=== PATIENT | female | born 1960 | race Caucasian/White ===

== ENCOUNTER 2019-12-17 10:01 | Inpatient (IN) | payer BC, MEDICARE ==
[~2019-12-17] VITALS: Ht 165.1 cm; Wt 60.5 kg
--- NOTE | 2019-12-17 10:05 | NUR ---
ED Nurse Note:pt. nit in the room
--- NOTE | 2019-12-17 10:08 | Emergency Room Report ---
History of Present Illness General Chief Complaint: To Be Triaged Source: Patient Present Illness HPI Patient is a 59-year-old female with past medical history of ulcerative colitis now in remission status post ileocecal J-pouch placed by Dr Mix at [facility]. Patient was sent by Dr. Hartley who his her current surgeon. The patient's symptoms were gradual onset, severity was moderate, duration since several days. Quality: Aching States that the stool coming out of the ileocecal bag varies. Sometimes hard, sometimes soft, unsure of whether there is any blood in it Past medical history: Ulcerative colitis Past surgical history: Ileocecal J-pouch Smoking: Denies Alcohol use: Denies Drug use: Denies Review of systems: CONST: No fevers or chills, No night sweats PULMONARY: No productive cough, No shortness of breath CARDIAC: No chest pain, No palpitations GI: No vomiting, No diarrhea , No melena_or_BRBPR : No dysuria, No hematuria, No discharge NEURO: No new_focal_weakness_or_numbness, No confusion, No vision changes 14 point Review of Systems is otherwise negative except per HPI Physical Exam: GENERAL: Awake_alert_ nontoxic, no acute distress Spo2 100% on RA -normal EYES: Extraocular muscles are intact. Conjunctivae clear. Lids without swelling ENT: External nose and ear normal_in_appearance. Oropharynx clear. Head_ atraumatic, Moist_oral_mucosa NECK: No JVD. No meningismus. No thyromegaly. Supple. Trachea midline RESP: Normal respiratory effort. Symmetric rise. No stridor. Clear_to_ auscultation_No_rales_No_wheezes CARDIAC: Regular rate and regular rhytm. No_significant pedal edema. ABDOMEN: Soft. Nondistended. Nontender_No_rebound_or_guarding. Ileocecal J-pouch in the right lower quadrant of the abdomen. No CVA tenderness palpation. No surrounding erythema or drainage. Minimal drainage from bag. MSK: Normal muscle tone, without rigidity. Left lower extremity swelling SKIN: Warm and dry. No visible cyanosis or pallor NEUROLOGIC: Alert, oriented x3. Motor_and_sensation_grossly_intact. No truncal ataxia. Gait_normal Psych: Normal mood and affect, normal judgment and insight - COORDINATION OF CARE Case was discussed with: Patient , Patient's Physician Any labs and imaging that were ordered were interpreted as part of the medical decision making: Medical Decision Making/Plan: Differential diagnosis includes cholecystitis, choledocholithiasis, hepatitis, small bowel obstruction, volvulus, AAA, pancreatitis, atypical appendicitis, gastroparesis, gastritis, peptic ulcer disease, among others. Patient is well appearing with stable vital signs. Abdominal exam is non peritoneal with no guarding or rebound. She has a right lower quadrant colostomy bag at the ileocecal junction. No rebound or guarding. She was sent here by Dr. Mckeon her surgeon due to failed ileocecal J-pouch. He will Revise while she is admitted as an inpatient. Labs show mild anemia, otherwise no leukocytosis or metabolic abnormalities. COVID swab is negative. Doubt ulcerative colitis flare EKG shows normal sinus rhythm The patient denies any bloody stool and has no pain out of proportion to exam, and no significant risk factors for mesenteric ischemia such as atrial fibrillation or severe PAD/PVD (peripheral arterial / vascular disease), thus definitive workup to rule out mesenteric ischemia was not pursued. Patient is afebrile, without any significant tenderness in the RUQ, and a negative [place] sign. The patients presentation does not appear to be consistent with acute cholecystitis and thus definitive imaging to rule it out was not pursued. The patient has no significant risk factors for AAA (abdominal aortic aneurysm) such as age over 50 with history of hypertension, connective tissue disorder, or 1st degree relative with AAA. the patient has normal dorsalis pedis pulses, no radiation of pain to the back, and no pulsatile mass felt on exam. The patients profile was overall low risk for AAA and definitive workup was not pursued. The patients symptoms are not consistent with ACS (acute coronary syndrome), symptoms are not exertional, EKG without obvious ischemic change. Duplex ultrasound is pending at the time of admission. I spoke with Dr. Mckeon, and reviewed the patients presentation, workup, results, and treatment. They will admit the patient for further care and evaluation, and assume care of the patient at this time. Allergies: Coded Allergies: AMPICILLIN (Verified Allergy, Unknown, 12/17/19) TETRACYCLINE (Verified Allergy, Unknown, 12/17/19) Physical Exam Sp02 EP Interpretation: reviewed, normal Medical Decision Making Diagnostic Impression: Primary Impression: Abdominal pain Additional Impressions: Ulcerative colitis Leg edema, left Colostomy and enterostomy complications EKG Diagnostic Results KATIE Silva 12-lead EKG (interpreted by ) Time: 1035 Indication: Rhythm analysis Tracing visualized and Interpreted by . Rhythm: Normal sinus rhythm Rate: 91 bpm QTc: 432 Morphology: No_significant_ST_elevations_or_depressions, No STEMI Impression: Normal_sinus_rhythm_without_significant_abnormality Chest X-Ray Diagnostic Results Chest X-Ray Diagnostic Results : KATIE Silva Chest X-Ray: Views: 1 view(s) Indication: Surgical screening Findings: Normal heart size. Mediastinum normal. No infiltrate. Impression: No acute disease The X-ray(s) were independently viewed and interpreted contemporaneously Electronically signed by Christina nayak DO Disposition: ADMITTED INPATIENT Admit Decision Time: 11:14 Condition: Stable Christina Queen D.O. Dec 17, 2019 10:08
[2019-12-17] MEDS ORDERED: Heparin1,000 units/500ml Premix(Conc:2 units/ml) IV ONE (10:45)
[2019-12-17] MEDS ORDERED: Lidocaine 1% Plain 30 ml INJ ONE (10:45)
[2019-12-17] MEDS ORDERED: SODIUM CHLORIDE1 GM PO (10:50)
[2019-12-17] MEDS ORDERED: POTASSIUM CHLO10 ME2 PO (10:50)
[2019-12-17] MEDS ORDERED: PREVACID15 MG ORAL (10:50)
[2019-12-17] MEDS ORDERED: SEROQUEL200 MG ORAL (10:50)
[2019-12-17] MEDS ORDERED: PRAMIPEXOLE DI0.5 MG ORAL (10:50)
--- NOTE | 2019-12-17 11:04 | NUR ---
Initial ED Nurse note: Pt presents to ER for "removal of J pouch." Patient ambulating using walker and steady gait noted. Patient is awake, aler, oriented x 4. Regular, unlabored breathing noted. Patient jpouch for 30 yrs due to ulcerative colitis. Patient denies any N/V or D. Denies any fever or chills. Patient tolerating oral intake without any problem. Patient has swelling on the LLE. Patient reported she has DVT on LLE x [address] Mckeon aware of it, not on any anticoagulants at this time. Patient no c/o pain, laying comfortable in bed. Placed patient on cap sizer. Bed in lowest position. Awaiting for Covid test result.
[2019-12-17 11:05] VITALS: BP 127/94
[2019-12-17 11:15] LABS: BASOPHILS % (AUTO) 2.6 % (0.0-2.0); EOSINOPHILS % (AUTO) 2.1 % (0.0-3.0); HEMATOCRIT 33.5 % (37.0-47.0); HEMOGLOBIN 11.1 G/DL (12.0-16.0); LYMPHOCYTES % (AUTO) 24.5 % (20.0-45.0); MEAN CORPUSCULAR VOLUME 96 FL (80-99); MONOCYTES % (AUTO) 11.7 % (1.0-10.0); NEUTROPHILS % (AUTO) 59.2 % (45.0-75.0); PLATELET COUNT 386 K/UL (150-450); RED BLOOD COUNT 3.49 M/UL (4.20-5.40); WHITE BLOOD COUNT 6.6 K/UL (4.8-10.8)
[2019-12-17 11:25] LABS: ANION GAP 15 mmol/L (5-15); BLOOD UREA NITROGEN 11 mg/dL (7-18); CARBON DIOXIDE 21 MMOL/L (21-32); CHLORIDE 100 MMOL/L (98-107); CREATININE 1.1 MG/DL (0.55-1.30); SODIUM 136 MMOL/L (136-145)
--- NOTE | 2019-12-17 11:29 | NUR ---
ED Nurse Note: Second set of blood cultures sent to lab.
[2019-12-17 11:39] LABS: ALANINE AMINOTRANSFERASE 22 U/L (12-78); ALBUMIN 3.4 G/DL (3.4-5.0); ALBUMIN/GLOBULIN RATIO 0.7 (1.0-2.7); ALKALINE PHOSPHATASE 149 U/L (46-116); ASPARTATE AMINO TRANSFERASE 27 U/L (15-37); BILIRUBIN,TOTAL 0.3 MG/DL (0.2-1.0); CKMB 6.4 NG/ML (0.0-3.6)
--- NOTE | 2019-12-17 11:53 | NUR ---
ED Nurse Note: Report given to Susanna KAYE of Med Surg unit.
[2019-12-17] MEDS ORDERED: Heparin1,000 units/500ml Premix(Conc:2 units/ml) IV PRN (12:15)
[2019-12-17] MEDS ORDERED: Lidocaine 1% Plain 30 ml INJ PRN (12:15)
--- NOTE | 2019-12-17 12:52 | NUR ---
NURSE NOTES: Patient received from ER, via gurney on RA, in stable condition. Right lower abdomen, colostomy noted, appliance in place, secure, no leakage noted, dark green liquid output noted in bag. Patient denies pain, NV, SOB. Oriented patient to room and medical equipment/call light. Belongings reviewed (all belongings/walker with seat) remain at bedside with patient, signed. Admission orders/NPO status, reviewed with patient, verbalized understanding. Call light in reach, bed in lowest position, will continue to monitor.
--- NOTE | 2019-12-17 12:59 | NUR ---
ED Nurse Note: TRANSFER TO FLOOR: Patient transferred to as ordered. Patient sent with belongings. Patient remained awake, alert,oriented x 4. Regular, unlabored breathing noted. Reports no pain at this time.
[2019-12-17 13:00] VITALS: BP 148/85
--- NOTE | 2019-12-17 14:11 | NUR ---
NURSE NOTES: Patient sent down to radiology for PICC placement, via bed on RA, in stable condition. Consent signed, patient verbalized understanding. Returned at 1411 via bed, KELLEE double lumen PICC, scant amount of blood noted in dressing, intact. Will continue to monitor.
--- NOTE | 2019-12-17 14:13 | NUR ---
RADIOLOGY NOTE: LEFT UPPER PICC PLACED.
[2019-12-17] MEDS ORDERED: HydrOXYzine 50mg tab ORAL PRN (14:45)
[2019-12-17] MEDS ORDERED: Omnipaque-300 100ml vial INJ PRN (14:53)
[2019-12-17] MEDS ORDERED: LORazepam 1mg tab ORAL PRN (15:00)
--- NOTE | 2019-12-17 15:05 | General Progress Note ---
Progress Note Progress Note H&P dictated. 59yo female with history of Ulcerative Colitis, total colectomy with ileoanal J pouch that failed and Narcisa ileostomy created but J pouch left in place - now with increasing abdominal pain, bleeding from J pouch, anal discharge. She has also undergone mesh repair of incarcerated parastomal hernia in 2018. she also c/o left lower leg swelling for several weeks and severe pruritus with rashes etiology unknown despite medical and dermatology evaluations Abdomen soft, non-distended, long midline scar very wide in epigastric portion, ileostomy upper RLQ, no evidence of hernia. Perianal skin is normal with small stenotic anal orifice Left lower leg is swollen with mild erythema and some pain from below knee to toes. Week DP pulse bilat Duplex scan no DVT WBC 6600 Hgb 11.1 BUN 11 Cr 1.1 Alk phos 149 Albumin 3.4 Takes sodium and potassium daily - was hospitalized for 3 months last year for severe hyponatremia Imp: Failed ileoanal J pouch with abdominal pain and J pouch bleeding Stable Narcisa ileostomy Plan; STAT PICC line for venous access and start IV hydration - maintain NPO except po meds In AM CT scan abd + pelvis with po and IV contrast F/U left lower leg re antibiotics for possible cellulitis Prepare for surgery 12/18 laparotomy with resection ileoanal J pouch - she hopes to avoid the perineal proctectomy portion, and wants to maintain her current conventional ileostomy. f/u labs in AM with IV hydration Atarax prn pruritus; Ativan prn restless leg syndrome (Mirapex not effective) Gio Mckeon MD Dec 17, 2019 15:05
[2019-12-17 16:00] VITALS: BP 146/84
--- NOTE | 2019-12-17 16:01 | Pre-Procedure Note/Attestation ---
Pre-Procedure Note/Attestation Complete Prior to Procedure Planned Procedure: not applicable Procedure Narrative: PICC Indications for Procedure Pre-Operative Diagnosis: needs manager long term care IV access Attestation I attest that I discussed the nature of the procedure; its benefits; risks and complications; and alternatives (and the risks and benefits of such alternatives ), prior to the procedure, with the patient (or the patient's legal claim service representative). I attest that, if there was a reasonable possibility of needing a blood transfusion, the patient (or the patient's legal claim service representative) was given the [facility] standardized written summary, pursuant to the Jossue Hoda Blood Safety Act ([place] Health and Safety Code # 1645, as amended). I attest that I re-evaluated the patient just prior to the surgery and that there has been no change in the patient's H&P, except as documented below: Jesus Franks MD Dec 17, 2019 16:01
--- NOTE | 2019-12-17 16:02 | Brief Operative Note ---
Immediate Post Operative Note Operative Note Pre-op Diagnosis: needs salvage determiner IV access Procedure: PICC Post-op Diagnosis: same as pre-op Surgeon: Bel Fajardo Anesthesia: local Specimen: none Complications: none Fluids: none Implant(s) used?: No Jesus Fajardo MD Dec 17, 2019 16:02
[2019-12-17] MEDS: D5 1/2NS w/KCl 20mEq 1,000 ML IV SCH (16:17)
--- NOTE | 2019-12-17 16:34 | Diagnostic Imaging Report ---
Indication: Cough Technique: One view of the chest Comparison: none Findings: There is diffuse mild bilateral interstitial disease and central bronchial wall thickening. No focal airspace consolidation. No effusions. Normal heart size Impression: Acuity indeterminate mild interstitial disease. Correlate with clinical findings. No focal infiltrates
--- NOTE | 2019-12-17 16:51 | Diagnostic Imaging Report ---
Indication: Left leg edema Technique: Grayscale and duplex images of the left lower extremity veins Comparison: None Findings: On the left, grayscale and duplex images demonstrate no evidence of intraluminal thrombus. Normal phasic Doppler waveforms, demonstrating normal augmentation response and no evidence of valvular insufficiency. Greater saphenous vein(s) and tibial veins are patent. Normal compressibility. There is some edema of the subcutaneous fat Impression: Negative for evidence of lower extremity deep venous thrombosis on the left
--- NOTE | 2019-12-17 17:05 | Diagnostic Imaging Report ---
Indications: Needs long-term IV access Technique: Ultrasound confirms patent compressible left basilic vein. Total sterile technique, including sterile probe cover and sterile gel, hat, mask, sterile gown, large sterile drape, and preparation with 2% chlorhexidine utilized. Local anesthesia with 1% lidocaine. Under real-time ultrasound guidance, puncture basilic vein using 21-gauge needle, documented and archived, passage 0.018 guidewire under direct fluoroscopy, which was used to determine appropriate catheter length, exchange for [place] peel-away sheath. 4 [place] Bard dual-lumen power PICC cut to 34 cm. It was inserted through the peel-away sheath. Peel-away sheath and guidewire removed. Catheter fixed to the skin. Both catheter ports aspirated and flushed. Patient tolerated procedure well, without immediate complication. Digital radiograph documents satisfactory catheter tip position, at the cavoatrial junction. Total fluoroscopy time 6.4 seconds. Total dose area product [id number] [id number] Total number of images: 1 Impression: Successful placement of left PICC under sonographic and fluoroscopic guidance, as described above.
[2019-12-17] MEDS ORDERED: Lansoprazole 15mg cap ORAL SCH (18:00)
[2019-12-17] MEDS: Pramipexole 0.5mg tab ORAL SCH (18:08)
--- NOTE | 2019-12-17 19:25 | NUR ---
NURSE HAND-OFF: Important Events on Shift:ER admission at 1300, KELLEE PICC line inserted at 1400 Patient Status: stable Diet: NPO except ice chips/sips with meds Pending Orders: CT abdomen/pelvis with oral/IV contrast Pending Results/Labs:AM labs/UA Pending MD notification:none Latest Vital Signs: Temperature 98.3 , Pulse 87 , B/P 146 /84 , Respiratory Rate 16 , O2 SAT 100 , Room Air, O2 Flow Rate . Vital Sign Comment: none Latest Jimenez Fall Score: 50 Fall Risk: High Risk Safety Measures: Call light Within Reach, Bed Alarm Zone 1, Side Rails Side Rails x2, Bed position Low and Locked. Fall Precautions: Yellow Socks Patient Fall Education Outputs: Narcisa Ileostomy: 200 ml Urine: 250 ml Report given to Twila KAYE.
--- NOTE | 2019-12-17 19:32 | NUR ---
NURSE NOTES: Received report from VARGAS Elder. Pt is awake, lying semi-oliveros's; comfortably resting. No signs of acute distress noted. Pt denies any pain at this time. AOx4; able to make needs known. Checked IV site, line, and rate; patent and running. Right lower quadrant appliance noted; patent and draining well. LLE redness noted but no pain. Pt oriented to room. Bed at lowest position. Brakes on. Siderails up x3. Call light within reach. Will continue to monitor.
[2019-12-17 20:00] VITALS: BP 118/73
[2019-12-17] MEDS: QUEtiapine 200mg tab ORAL SCH (20:23)
[2019-12-17] MEDS: Dyna-Hex 2% Top Sol 2oz TOPIC SCH (20:23)
[2019-12-18] MEDS: D5 1/2NS w/KCl 20mEq 1,000 ML IV SCH ×3 (01:14→20:00)
[2019-12-18 04:00] VITALS: BP 120/78
[2019-12-18 06:19] LABS: BASOPHILS % (AUTO) 1.1 % (0.0-2.0); EOSINOPHILS % (AUTO) 1.4 % (0.0-3.0); HEMATOCRIT 28.7 % (37.0-47.0); HEMOGLOBIN 9.5 G/DL (12.0-16.0); LYMPHOCYTES % (AUTO) 26.2 % (20.0-45.0); MEAN CORPUSCULAR VOLUME 95 FL (80-99); MONOCYTES % (AUTO) 8.5 % (1.0-10.0); NEUTROPHILS % (AUTO) 62.8 % (45.0-75.0); PLATELET COUNT 330 K/UL (150-450); RED BLOOD COUNT 3.01 M/UL (4.20-5.40); RED CELL DISTRIBUTION WIDTH 14.1 % (11.6-14.8); WHITE BLOOD COUNT 6.5 K/UL (4.8-10.8)
--- NOTE | 2019-12-18 06:27 | NUR ---
NURSE HAND-OFF: Important Events on Shift: N/A Patient Status: Stable Diet: NPO Pending Orders: N/A Pending Results/Labs:CBC, CMP, Ferritin, Fe, Vit B12, Folic, Mg, Ph Pending MD notification:N/A Latest Vital Signs: Temperature 99.1 , Pulse 92 , B/P 120 /78 , Respiratory Rate 20 , O2 SAT 96 , Room Air, O2 Flow Rate . Vital Sign Comment: N/A Latest Jimenez Fall Score: 35 Fall Risk: Medium Risk Safety Measures: Call light Within Reach, Bed Alarm Zone 1, Side Rails Side Rails x3, Bed position Low and Locked. Fall Precautions: Yellow Socks Yellow Gown Door Sign Patient Fall Education
[2019-12-18 06:56] LABS: ALANINE AMINOTRANSFERASE 16 U/L (12-78); ALBUMIN 2.7 G/DL (3.4-5.0); ALBUMIN/GLOBULIN RATIO 0.7 (1.0-2.7); ALKALINE PHOSPHATASE 130 U/L (46-116); ANION GAP 12 mmol/L (5-15); ASPARTATE AMINO TRANSFERASE 23 U/L (15-37); BILIRUBIN,TOTAL 0.3 MG/DL (0.2-1.0); BLOOD UREA NITROGEN 10 mg/dL (7-18); CALCIUM 6.9 MG/DL (8.5-10.1); CARBON DIOXIDE 23 MMOL/L (21-32); CHLORIDE 105 MMOL/L (98-107); CREATININE 0.9 MG/DL (0.55-1.30); FERRITIN 173 NG/ML (8-388); PHOSPHORUS 5.2 MG/DL (2.5-4.9); POTASSIUM 3.7 MMOL/L (3.5-5.1); SODIUM 139 MMOL/L (136-145)
--- NOTE | 2019-12-18 07:12 | NUR ---
HAND-OFF: Report given to VARGAS iNx. Plan of care and new stat order of Mg endorsed to oncoming RN.
--- NOTE | 2019-12-18 07:30 | NUR ---
NURSE NOTES: Received report from VARGAS Mattson. Pt is awake, alert and oriented. No signs of acute distress noted. Denies any pain at this time. PICC line noted; intact and patent. Essie ileo bag noted; patent and draining well. Noted Mg level low and new stat order. Order carried out. Discussed plan of care. Bed at lowest position, locked. up x3. Call light within reach. Will continue to monitor.
[2019-12-18 07:49] LABS: % IRON SATURATION 26 % (15-50); IRON 70 ug/dL (50-175); TOTAL IRON BINDING CAPACITY 269 ug/dL (250-450)
[2019-12-18 08:00] VITALS: BP 110/80
[2019-12-18] MEDS: Pramipexole 0.5mg tab ORAL SCH ×2 (08:36→18:00)
[2019-12-18] MEDS ORDERED: Vitamin B12 1000mcg/ml Inj IM SCH (09:45)
--- NOTE | 2019-12-18 09:48 | General Progress Note ---
Progress Note Progress Note AVSS Tachycardia on admission now improved with Iv fluids Presented with mild dehydration and only 450cc urine output since admission yesterday morning Abdomen soft Ileostomy 1275cc despite patient NPO WBC 6500 Hgb 9.5 BUN 10 Cr 0.9 Mg 0.7 albumin 2.7 Irofn 70 (50-175) ferritin 173 B12 387 folic acid okay Imp: Malnutrition anemia due to chronic bleeding from diverted ileoanal J pouch critically low Mg levels Plan: Mg infusions STAT CT scan abd+pelvis with oral and IV contrast today Venofer + B12 x 1 TPN Type and Cross match 2 units PRBC for surgery tomorrow continue npo except Gio Gloria MD Dec 18, 2019 09:48
--- NOTE | 2019-12-18 10:37 | NUR ---
RD ASSESSMENT & RECOMMENDATIONS SEE CARE ACTIVITY FOR COMPLETE ASSESSMENT DAILY ESTIMATED NEEDS: Needs based on pending surgery/ 59kg 25-30 kcals/kg 3699-3919 total kcals 1-2 g protein/kg 59-118 g total protein 25-35 mL/kg 9262-5420 total fluid mLs NUTRITION DIAGNOSIS: Altered GI function R/T h/o UC, total colectomy, admitted w/ failed ileoanal J pouch with abdominal pain and J pouch bleeding as evidenced by pending laparotomy with resection ileoanal J pouch (12/18), NPO, to start NPO CURRENT DIET:NPO, TPN to start PO DIET RECOMMENDATIONS: PER MD PARENTERAL NUTRITION RECOMMENDATIONS: D/AA Rate: 70 IL Rate: 10 Total Rate: 80 Volume: 1920 % Dextrose: 16 % AA: 5.0 Energy (kcals/kg): 1730 Protein (g/kg protein): 84 Nonprotein KCALS: 1394 GIR (mg CHO/kg/min): 3.17 % Fat KCALS: 27.7 NCP: N Ratio: 103.7 TPN Comment: - D16% AA 5.0% @ 70ml/hr + IL 20% @ 10ml/hr -> all 3:1, total of 80ml/hr - Start rate per MD - TPN @ goal provides 100% est kcal/prot needs :29kcal/1.42g prot per kg ADDITIONAL RECOMMENDATIONS: * Standing wt as able for accurate CBW * Monitor lytes, replete as needed (low mag) * Monitor LFTs, BGs closely, need for TPN formulary change
--- NOTE | 2019-12-18 11:14 | Pre-op HX & Phy Repo 2 SIG ---
DATE OF ADMISSION: 12/17/2019 EMERGENCY ADMISSION HISTORY AND PHYSICAL HISTORY OF PRESENT ILLNESS: The patient is a 59-year-old female in overall stable health, who has a past history of ulcerative colitis and has a diverted ileoanal J-pouch with constant and progressive pain, bleeding, and discharge from her J-pouch. The patient underwent total colectomy with ileoanal J-pouch in 1991, but it failed after a few years and a permanent ileostomy was placed, but the J-pouch was left in situ. In 2002 was the time the ileostomy was placed diverting her J-pouch. She had two operations in 2012 for small bowel obstruction. Her last pouch endoscopy was 2017 or 2018. In November 2017, she underwent repair of an incarcerated parastomal hernia with Strattice mesh with findings of severe adhesions. She has also had an open cholecystectomy in 2013. All of her operations will be listed at the end of this dictation. The patient states she has to take sodium and potassium daily, that last year she was hospitalized for three months with severe hyponatremia that was refractory to treatment. PAST MEDICAL HISTORY/MEDICATIONS: Seroquel, Prevacid for reflux, and Mirapex for restless legs syndrome, which she states is not very effective. She takes sodium and potassium orally daily. ALLERGIES: Penicillin and tetracycline. OPERATIONS: See the complete list at the end of this dictation. REVIEW OF SYSTEMS: The patient had an upper GI bleed in December 2017 with endoscopy revealing esophagitis that was treated and resolved. Additional review of systems, the patient states that three to four weeks ago, for no apparent reason without trauma, she developed swelling of her left lower extremity distal to the knee down to the toes with some pain and redness. She states that this has improved since then significantly. She had a duplex venous scan of the left lower extremity in the emergency room, which revealed no evidence of deep vein thrombosis, only some edema of the superficial soft tissues subcutaneously. Additional review of systems, the patient states that for months she has been troubled with rashes and pruritus and has seen multiple specialists without any diagnosis. She also has no venous access other than placing a PICC line. PHYSICAL EXAMINATION: GENERAL: The patient is somewhat depleted looking, 5 feet 1 inch, approximately 100 pounds. VITAL SIGNS: She has mild tachycardia of 104. Blood pressure is normal. HEENT: Within normal limits. LUNGS: Clear. HEART: Regular rhythm. BREASTS: Without masses. ABDOMEN: Soft and flat. There is a long midline scar, which is very wide and indented attached to the underlying fascia in the epigastrium. The ileostomy is high in the right lower quadrant. There is no evidence of abdominal wall, ventral incisional, parastomal, or groin hernia. PELVIC: Has been done by primary care in the past without findings RECTAL: There is a very small stenotic anal orifice, but the perianal skin is completely normal. EXTREMITIES: Pulses are 2+ femoral to dorsalis pedis bilaterally. The left lower extremity distal to the patella to the foot is mildly swollen with very minimal if any erythema, certainly no substantial cellulitis and the patient does state that her leg is progressively improved. NEUROLOGIC: Physiologic. IMPRESSION: 1. Failed ileoanal J-pouch with persistent pain, bleeding, and discharge with diverting Anrcisa ileostomy. 2. History of ulcerative colitis. 3. STATUS POST MULTIPLE ABDOMINAL OPERATIONS: 3.1. Total colectomy with ileoanal J-pouch in 1991. 3.2. Creation of Narcisa ileostomy leaving J-pouch in place in 2002. 3.3. Laparotomy x2 for small bowel obstruction in 2012. 3.4. Open cholecystectomy in 2013. 3.5. Repair of parastomal hernia with Strattice mesh and findings of severe adhesions in November 2017. PLAN: The patient will be made NPO. Intravenous fluids will be started to hydrate the patient. Repeat laboratories will be obtained to see what her final numbers are. Her white blood count is 6600, hemoglobin 11.1, which is likely to be hemoconcentrated. Albumin 3.4, lower limit of normal. Creatinine 1.1. The patient will undergo insertion of a dual lumen PICC line. If her followup labs reveal a low serum albumin, she will likely require TPN support during her surgery. She will undergo CT scan of abdomen and pelvis with oral and IV contrast to better appreciate the anatomy and if there are any additional lesions or any neoplasm in the anorectal area or J-pouch. I have had a full discussion with the patient regarding the need for a total resection of her J-pouch including abdomino-perineal proctectomy, but she is very resistant to having the idea of a perineal proctectomy portion and indicated her desire to remove the J-pouch as low as possible internally and leave the anal orifice. I advised her that this may not be possible based on surgical findings, we cannot leave obstructed tissue if she has a stricture. I also had a discussion about her ileostomy and she does not wish to change to a continent ileostomy, and I have advised her that is a completely appropriate decision. We will have another discussion after the CT scan findings are available. Gio Mckeon M.D. DR: RAYMUNDO JOB#: [id number] CC:
--- NOTE | 2019-12-18 11:22 | NUR ---
NURSE NOTES: Pt came back to unit from CT with stable condition.
[2019-12-18 12:00] VITALS: BP 112/80
[2019-12-18 12:12] LABS: APPEARANCE,URINE CLEAR; BILIRUBIN, URINE NEGATIVE (NEGATIVE); COLOR,URINE PALE YELLOW; GLUCOSE, URINE (UA) NEGATIVE (NEGATIVE); KETONES,URINE NEGATIVE (NEGATIVE); LEUKOCYTE ESTERASE ,URINE 3+ (NEGATIVE); NITRITE,URINE POSITIVE (NEGATIVE); PH,URINE 5 (4.5-8.0); PROTEIN,URINE NEGATIVE (NEGATIVE); UROBILINOGEN,URINE NORMAL MG/DL (0.0-1.0)
[2019-12-18 16:00] VITALS: BP 139/84
--- NOTE | 2019-12-18 19:15 | NUR ---
NURSE NOTES: Received report from VARGAS Nix. Pt is awake, lying semi-comfortably resting; comfortably resting. No signs of acute distress noted. Pt denies any pain at this time. AOx4; able to make needs known. Checked IV site, lines, and rates; patent and running. LLE edema noted; red and warm. RLQ appliance noted; intact. Pt oriented to room. Bed at lowest position. Brakes on. Siderails up x2. Call light within reach. Will continue to monitor.
--- NOTE | 2019-12-18 19:18 | NUR ---
NURSE HAND-OFF: Important Events on Shift:CT abdomen/Pelvis Patient Status: stable Diet: npo Pending Orders: n Pending Results/Labs: Mg Pending MD notification:n Latest Vital Signs: Temperature 98.1 , Pulse 85 , B/P 139 /84 , Respiratory Rate 20 , O2 SAT 97 , Room Air, O2 Flow Rate . Vital Sign Comment: Latest Jimenez Fall Score: 35 Fall Risk: Medium Risk Safety Measures: Call light Within Reach, Bed Alarm Zone 1, Side Rails Side Rails x3, Bed position Low and Locked. Fall Precautions: Yellow Socks Yellow Gown Door Sign Patient Fall Education Report given to VARGAS Mattson.
[2019-12-18 20:00] VITALS: BP 139/81
[2019-12-18] MEDS ORDERED: Dextrose 10% 1,000 ML IV PRN (20:00)
[2019-12-18] MEDS: Iron Sucrose 100 MG in NS 55 ML IVPB SCH (20:29)
[2019-12-18] MEDS: Dyna-Hex 2% Top Sol 2oz TOPIC SCH (20:29)
[2019-12-18] MEDS: QUEtiapine 200mg tab ORAL SCH (20:29)
[2019-12-18] MEDS: Fat Emulsion Iv 20% 240 ML in Tpn 1,680 ML IV SCH (20:32)
[2019-12-18] MEDS ORDERED: Fat Emulsion Iv 20% 250 ML IV SCH (21:00)
[2019-12-18 23:45] VITALS: BP 113/77
[2019-12-19 04:00] VITALS: BP 132/84
[2019-12-19] MEDS: NovoLOG Insulin Flexpen SUBQ SCH ×5 (05:01→23:03)
[2019-12-19 05:50] LABS: BASOPHILS % (AUTO) 1.2 % (0.0-2.0); EOSINOPHILS % (AUTO) 2.6 % (0.0-3.0); HEMATOCRIT 29.5 % (37.0-47.0); HEMOGLOBIN 9.9 G/DL (12.0-16.0); LYMPHOCYTES % (AUTO) 22.1 % (20.0-45.0); MEAN CORPUSCULAR VOLUME 95 FL (80-99); MONOCYTES % (AUTO) 12.4 % (1.0-10.0); NEUTROPHILS % (AUTO) 61.7 % (45.0-75.0); PLATELET COUNT 310 K/UL (150-450); RED BLOOD COUNT 3.11 M/UL (4.20-5.40); WHITE BLOOD COUNT 4.8 K/UL (4.8-10.8)
[2019-12-19 06:26] LABS: ALANINE AMINOTRANSFERASE 19 U/L (12-78); ALBUMIN 2.6 G/DL (3.4-5.0); ALBUMIN/GLOBULIN RATIO 0.6 (1.0-2.7); ALKALINE PHOSPHATASE 130 U/L (46-116); ANION GAP 10 mmol/L (5-15); ASPARTATE AMINO TRANSFERASE 24 U/L (15-37); BILIRUBIN,TOTAL 0.4 MG/DL (0.2-1.0); BLOOD UREA NITROGEN 9 mg/dL (7-18); CALCIUM 8.3 MG/DL (8.5-10.1); CARBON DIOXIDE 25 MMOL/L (21-32); CHLORIDE 102 MMOL/L (98-107); CREATININE 0.9 MG/DL (0.55-1.30); PHOSPHORUS 4.8 MG/DL (2.5-4.9); POTASSIUM 3.5 MMOL/L (3.5-5.1); SODIUM 137 MMOL/L (136-145)
--- NOTE | 2019-12-19 06:31 | NUR ---
NURSE HAND-OFF: Important Events on Shift: 1700 Mg lab resulted to 2.3 Patient Status: Stable Diet: NPO Pending Orders: Consent for surgery today Pending Results/Labs:N/A Pending MD notification:N/A Latest Vital Signs: Temperature 98.6 , Pulse 97 , B/P 132 /84 , Respiratory Rate 20 , O2 SAT 99 , Room Air, O2 Flow Rate . Vital Sign Comment: N/A Latest Jimenez Fall Score: 35 Fall Risk: Medium Risk Safety Measures: Call light Within Reach, Bed Alarm Zone 1, Side Rails Side Rails x3, Bed position Low and Locked. Fall Precautions: Yellow Socks Yellow Gown Door Sign Patient Fall Education
--- NOTE | 2019-12-19 07:16 | NUR ---
HAND-OFF: Report given to VARGAS Mello. Plan of care endorsed.
--- NOTE | 2019-12-19 07:26 | Anethesia Preoperative Eval ---
Anesthesia Pre-op PMH/ROS General Date of Evaluation: Dec 18, 2019 Time of Evaluation: 14:37 Anesthesiologist: Tiny ASA Score: ASA 3 Mallampati Score Class I : Soft palate, uvula, fauces, pillars visible Class II: Soft palate, uvula, fauces visible Class III: Soft palate, base of uvula visible Class IV: Only hard plate visible Mallampati Classification: Class II Surgeon: Mike Diagnosis: Malfxn Ileoanal J-Pouch Surgical Procedure: Resection Ileoanal J-Pouch Anesthesia History: none Family History: no anesthesia problems Allergies: Coded Allergies: AMPICILLIN (Verified Allergy, Unknown, 12/17/19) TETRACYCLINE (Verified Allergy, Unknown, 12/17/19) Medications: see eMAR Patient NPO?: Yes Past Medical History Cardiovascular: Reports: HTN Gastrointestinal/Genitourinary: Reports: GERD, other - Ulcerative Colitis Hematology/Immune: Reports: anemia PSxH Narrative: 1. Failed ileoanal J-pouch with persistent pain, bleeding, and discharge with diverting Narcisa ileostomy. 2. History of ulcerative colitis. 3. STATUS POST MULTIPLE ABDOMINAL OPERATIONS: 3.1. Total colectomy with ileoanal J-pouch in 1991. 3.2. Creation of Narcisa ileostomy leaving J-pouch in place in 2002. 3.3. Laparotomy x2 for small bowel obstruction in 2012. 3.4. Open cholecystectomy in 2013. 3.5. Repair of parastomal hernia with Strattice mesh and findings of severe adhesions in November 2017. Anesthesia Pre-op Phys. Exam Physician Exam Last Vital Signs Date Time Temp Pulse Resp B/P (MAP) Pulse Ox O2 Delivery O2 Flow Rate FiO2 12/19/19 04:00 98.6 97 20 132/84 (100) 99 12/18/19 21:00 Room Air Constitutional: NAD Neurologic: CN 2-12 intact Cardiovascular: RRR Respiratory: CTA Gastrointestinal: S/NT/ND Airway Exam Mallampati Score: Class II MO: full ROM: full Teeth: missing, intact Anesthesia Pre-op A/P Labs Hematology Test 12/19/19 04:45 White Blood Count 4.8 K/UL (4.8-10.8) Red Blood Count 3.11 M/UL (4.20-5.40) L Hemoglobin 9.9 G/DL (12.0-16.0) L Hematocrit 29.5 % (37.0-47.0) L Mean Corpuscular Volume 95 FL (80-99) Mean Corpuscular Hemoglobin 32.0 PG (27.0-31.0) H Mean Corpuscular Hemoglobin Concent 33.7 G/DL (32.0-36.0) Red Cell Distribution Width 14.0 % (11.6-14.8) Platelet Count 310 K/UL (150-450) Mean Platelet Volume 5.8 FL (6.5-10.1) L Neutrophils (%) (Auto) 61.7 % (45.0-75.0) Lymphocytes (%) (Auto) 22.1 % (20.0-45.0) Monocytes (%) (Auto) 12.4 % (1.0-10.0) H Eosinophils (%) (Auto) 2.6 % (0.0-3.0) Basophils (%) (Auto) 1.2 % (0.0-2.0) Chemistry Test 12/18/19 16:42 12/19/19 04:45 Magnesium Level 2.3 MG/DL (1.8-2.4) 2.0 MG/DL (1.8-2.4) Sodium Level 137 MMOL/L (136-145) Potassium Level 3.5 MMOL/L (3.5-5.1) Chloride Level 102 MMOL/L (98-107) Carbon Dioxide Level 25 MMOL/L (21-32) Anion Gap 10 mmol/L (5-15) Blood Urea Nitrogen 9 mg/dL (7-18) Creatinine 0.9 MG/DL (0.55-1.30) Estimat Glomerular Filtration Rate > 60 mL/min (>60) Glucose Level 117 MG/DL (74-106) H Calcium Level 8.3 MG/DL (8.5-10.1) #L Phosphorus Level 4.8 MG/DL (2.5-4.9) Total Bilirubin 0.4 MG/DL (0.2-1.0) Aspartate Amino Transf (AST/SGOT) 24 U/L (15-37) Alanine Aminotransferase (ALT/SGPT) 19 U/L (12-78) Alkaline Phosphatase 130 U/L (46-116) H Total Protein 6.7 G/DL (6.4-8.2) Albumin 2.6 G/DL (3.4-5.0) L Globulin 4.1 g/dL Albumin/Globulin Ratio 0.6 (1.0-2.7) L Risk Assessment & Plan Assessment: ASA 3 Plan: GA Status Change Before Surgery: No Pre-Antibiotics Drug: Johnnie White MD Dec 19, 2019 07:26
--- NOTE | 2019-12-19 07:37 | NUR ---
NURSE NOTES: Received report from Twila RN, rounds made, pt sleeping with no s/s of respiratory distress on RA pt has a PICC line on the KELLEE with IVF, bed in low locked position, side rails upX2, call light with in reach, will continue to monitor
[2019-12-19 08:00] VITALS: BP 143/79
[2019-12-19] MEDS: Pramipexole 0.5mg tab ORAL SCH ×2 (08:39→17:52)
--- NOTE | 2019-12-19 08:41 | General Progress Note ---
Progress Note Progress Note AVSS Weak and needs assistance to get to bathroom. 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 Burgess to see for ID consultation Ambulate TID f/u labs Gio Mckeon MD Dec 19, 2019 08:41
[2019-12-19 12:00] VITALS: BP 121/66
--- NOTE | 2019-12-19 13:24 | Infectious Diseases Prog Note ---
Assessment/Plan Assessment/Plan Full consult dictated: A) 1) gram neg uti 2) left leg cellulitis 3) plan on surgery, CT abdomen and pelvis noted 4) allergies - ampicillin and tetracycline 5) pmh noted P) 1) vancomycin and aztreonam 2) f/u on cultures 3) surgery when patient stable 4) thank you Subjective Allergies: Coded Allergies: AMPICILLIN (Verified Allergy, Unknown, 12/17/19) TETRACYCLINE (Verified Allergy, Unknown, 12/17/19) Objective Last 24 Hour Vital Signs Date Time Temp Pulse Resp B/P (MAP) Pulse Ox O2 Delivery O2 Flow Rate FiO2 12/19/19 09:00 Room Air 12/19/19 08:00 99.1 93 19 143/79 (100) 96 12/19/19 04:00 98.6 97 20 132/84 (100) 99 12/18/19 23:45 97.9 97 18 113/77 (89) 96 12/18/19 21:00 Room Air 12/18/19 20:00 97.9 90 20 139/81 (100) 95 12/18/19 16:00 98.1 85 20 139/84 (102) 97 Height (Feet): 5 Height (Inches): 1.00 Weight (Pounds): 129 Microbiology Date/Time Source Procedure Growth Status 12/17/19 11:30 Blood Blood Culture - Preliminary NO GROWTH AFTER 24 HOURS Resulted 12/17/19 10:59 Blood Blood Culture - Preliminary NO GROWTH AFTER 24 HOURS Resulted 12/17/19 10:42 Nasopharynx SARS-CoV-2 RdRp Gene Assay - Final Complete 12/18/19 11:55 Urine,Clean Catch Urine Culture - Preliminary Gram Negative Fredy Resulted Laboratory Tests Test 12/18/19 16:42 12/19/19 04:45 Magnesium Level 2.3 MG/DL (1.8-2.4) 2.0 MG/DL (1.8-2.4) White Blood Count 4.8 K/UL (4.8-10.8) Red Blood Count 3.11 M/UL (4.20-5.40) L Hemoglobin 9.9 G/DL (12.0-16.0) L Hematocrit 29.5 % (37.0-47.0) L Mean Corpuscular Volume 95 FL (80-99) Mean Corpuscular Hemoglobin 32.0 PG (27.0-31.0) H Mean Corpuscular Hemoglobin Concent 33.7 G/DL (32.0-36.0) Red Cell Distribution Width 14.0 % (11.6-14.8) Platelet Count 310 K/UL (150-450) Mean Platelet Volume 5.8 FL (6.5-10.1) L Neutrophils (%) (Auto) 61.7 % (45.0-75.0) Lymphocytes (%) (Auto) 22.1 % (20.0-45.0) Monocytes (%) (Auto) 12.4 % (1.0-10.0) H Eosinophils (%) (Auto) 2.6 % (0.0-3.0) Basophils (%) (Auto) 1.2 % (0.0-2.0) Sodium Level 137 MMOL/L (136-145) Potassium Level 3.5 MMOL/L (3.5-5.1) Chloride Level 102 MMOL/L (98-107) Carbon Dioxide Level 25 MMOL/L (21-32) Anion Gap 10 mmol/L (5-15) Blood Urea Nitrogen 9 mg/dL (7-18) Creatinine 0.9 MG/DL (0.55-1.30) Estimat Glomerular Filtration Rate > 60 mL/min (>60) Glucose Level 117 MG/DL (74-106) H Calcium Level 8.3 MG/DL (8.5-10.1) #L Phosphorus Level 4.8 MG/DL (2.5-4.9) Total Bilirubin 0.4 MG/DL (0.2-1.0) Aspartate Amino Transf (AST/SGOT) 24 U/L (15-37) Alanine Aminotransferase (ALT/SGPT) 19 U/L (12-78) Alkaline Phosphatase 130 U/L (46-116) H Total Protein 6.7 G/DL (6.4-8.2) Albumin 2.6 G/DL (3.4-5.0) L Globulin 4.1 g/dL Albumin/Globulin Ratio 0.6 (1.0-2.7) L Current Medications Medications (Trade) Dose Ordered Sig/Margarette Route PRN Reason Start Time Stop Time Status Last Admin Dose Admin Acetaminophen/ Butalbital/ Caffeine (Fioricet) 1 tab Q6H PRN ORAL headache 12/19/19 10:45 01/18/20 10:44 Barium Sulfate (Readi-Cat 2) 450 ml ONCE PRN ORAL radiology 12/17/19 14:52 12/19/19 14:51 Chlorhexidine Gluconate (Patti-Hex 2%) 1 applic DAILY@2000 TOPIC 12/17/19 20:00 03/16/20 19:59 12/18/19 20:29 Dextrose 1,000 ml @ 0 mls/hr Q24H PRN IV PN interrupted or unavailable 12/18/19 20:00 01/17/20 19:59 Dextrose (Dextrose 50%) 25 ml Q30M PRN IV Hypoglycemia 12/18/19 20:00 03/17/20 19:59 Dextrose (Dextrose 50%) 50 ml Q30M PRN IV Hypoglycemia 12/18/19 20:00 03/17/20 19:59 Dextrose/ Electrolytes 1,000 ml @ 20 mls/hr Q24H IV 12/18/19 20:00 01/17/20 19:59 Fat Emulsion Intravenous 240 ml/Amino Acids/ Electrolytes/ Dextrose 1,920 ml @ 80 mls/hr Q24H IV 12/18/19 20:00 03/17/20 19:59 12/18/19 20:32 Hydroxyzine HCl (Atarax) 50 mg Q6H PRN ORAL Itching 12/17/19 14:45 01/16/20 14:44 Insulin Aspart (NovoLOG) Q6HR SUBQ 12/19/19 00:00 03/18/20 00:00 Iohexol (OMNIPAQUE-300 100ml) 100 ml ONCE PRN INJ RADIOLOGY 12/17/19 14:53 12/19/19 14:52 Iron Sucrose 100 mg/Sodium Chloride 60 ml @ 240 mls/hr BEDTIME IVPB 12/18/19 21:00 12/22/19 21:14 12/18/19 20:29 Lansoprazole (Prevacid) 30 mg DAILY ORAL 12/18/19 09:00 01/17/20 08:59 12/19/19 08:39 Lorazepam (Ativan) 1 mg HSPRN PRN ORAL prn insomnia at hs 12/17/19 15:00 12/24/19 14:59 Lorazepam (Ativan) 1 mg Q6H PRN ORAL Restlessness 12/17/19 14:45 12/24/19 14:44 Phytonadione (Vitamin K) 10 mg ONCE A WEEK SUBQ 12/25/19 09:00 03/24/20 08:59 Pramipexole (Mirapex) 1 mg TWICE A DAY ORAL 12/17/19 18:00 01/16/20 17:59 12/19/19 08:39 Quetiapine Fumarate (SEROqueL) 200 mg BEDTIME ORAL 12/17/19 21:00 01/31/20 20:59 12/18/19 20:29 Kevan Burgess MD Dec 19, 2019 13:24
[2019-12-19] MEDS: Aztreonam Inj 1 GM in D5W 55 ML IVPB SCH ×2 (15:03→22:51)
[2019-12-19 16:00] VITALS: BP 127/68
[2019-12-19] MEDS: Vancomycin 500mg/D5W 110ml IVPB SCH ×2 (16:35)
--- NOTE | 2019-12-19 16:44 | Diagnostic Imaging Report ---
Clinical Indication: Abdominal pain, history of ileostomy, history of failed ileoanal J-pouch. Technique: Patient given oral contrast. IV administration nonionic contrast. Venous phase spiral acquisition obtained through the abdomen and pelvis. Multiplanar reconstructions were generated. Total dose length product 242 mGycm. CTDIvol(s) 5 mGy. Dose reduction achieved using automated exposure control Comparison: none Findings: There is a right lower quadrant ileostomy. The ileostomy defect contains a herniated loop of small bowel. Contrast appears to traverse the entire small bowel and contrast is seen within the ileostomy bag. Bowel is seen extending from the anus into the pelvis, with a staple line running along it. This appears to be connected 2 what appear to be multiple unopacified small bowel loops which extend from the umbilicus to the pelvis. The opacified small bowel loops are mildly dilated, and there is mild wall thickening of some of the apparent unopacified small bowel loops in the left upper quadrant. No definite discrete fluid collections are evident, although the presence of unopacified small bowel loops in the pelvis makes is difficult to completely exclude small abscess. No definite mass demonstrated, but the possibility that some of the apparent unopacified small bowel represent cystic tumor cannot be completely ruled out. No free intraperitoneal gas. The distal esophagus, stomach, duodenum are unremarkable. The gallbladder has been removed. The liver, pancreas, spleen, adrenals, kidneys are unremarkable. There is an inferior vena cava filter in good position. The inferior vena cava appears to be patent. The uterus and adnexal structures appear unremarkable. The included lung bases are clear. The bones demonstrate degenerative spondylosis changes. There is a compression fracture deformity of the L2 vertebral body. The L2 vertebral body is somewhat sclerotic. Impression: Postsurgical changes, as described, including right lower quadrant simple ileostomy, prior total colectomy, and J-pouch. There is abundant anterior pelvic apparent defunctionalized small bowel which appears to be in continuity with and ileoanal J-pouch remnant. Most likely, this just represents old isolated small bowel, but the possibility of any of this representing either tumor or abscess is not completely excludable. Small parastomal hernia within the right lower quadrant ileostomy. This appears to be nonobstructive. Equivocal mild wall thickening of left upper quadrant jejunal loops. Enteritis is possible and correlation with clinical findings is recommended Age-indeterminate L2 vertebral body compression fracture deformity. Suspect old. Consider MRI if clinically relevant Prior cholecystectomy Inferior vena cava filter Findings discussed by phone with Dr. Mckeon at the time of interpretation The CT scanner at [facility] is accredited by the [employer] and the scans are performed using protocols designed to limit radiation exposure to as low as reasonably achievable to attain images of sufficient resolution adequate for diagnostic evaluation.
--- NOTE | 2019-12-19 17:25 | NUR ---
CASE MANAGEMENT: INITIAL REVIEW 59YR OLD FEMALE FROM HOME CC:GENERAL COMPLAINT HX ULCERATIVE COLITIS SI:POUCHITIS . FAILED ILEOANAL POUCH . LEFT LEG EDEMA . HYPOCALCEMIA . UTI 98.2 103 17 137/82 98% ON RA CA+ 7.0 CK-MB 6.4 IS:IV HEPARIN CHEST X-RAY- Acuity indeterminate mild interstitial disease. Correlate with clinical findings. No focal infiltrate Picc line place VENOUS DUPLEX -Negative for evidence of lower extremity deep venous thrombosis on the left \: 3E MED SURG UNIT DCP: HOME WHEN STABLE PLAN: KEEP NPO LABS: 12/18/19 MG 0.7 CASE MANAGEMENT: REVIEW 12/19/19 SI:POUCHITIS . FAILED ILEOANAL POUCH . LEFT LEG EDEMA . HYPOCALCEMIA . hypomagnesemia . UTI URINE + NITRITE 99.1 93 19 143/79 96% ON RA URINE + NITRITE IS:IV VANCOMYCIN BID IV AZACTAM TID TPN IV QD IV VENOFER QHS X5 BAGS SEROQUEL PO QHS \: 3E MED SURG UNIT PLAN: SURGERY SCHEDULED FOR TODAY Addendum: 12/19/19 at 1752 by TRACI MCGOWAN LVN SURGERY CANCELLED FOR TODAY
[2019-12-19] MEDS ORDERED: SIMETHICONE125 M1 PO (19:15)
[2019-12-19] MEDS ORDERED: CENTRUM SILVER1 EAC6 PO (19:15)
[2019-12-19] MEDS ORDERED: OS-CAL 500+D31 EAC1 PO (19:15)
[2019-12-19] MEDS ORDERED: VITAMIN C500 M1 ORAL (19:15)
[2019-12-19] MEDS ORDERED: AMBIEN CR12.5 MG ORAL (19:15)
--- NOTE | 2019-12-19 19:24 | NUR ---
NURSE HAND-OFF: Important Events on Shift: Patient Status: Diet: Pending Orders: Pending Results/Labs: Pending MD notification: Latest Vital Signs: Temperature 98.1 , Pulse 93 , B/P 127 /68 , Respiratory Rate 18 , O2 SAT 99 , Room Air, O2 Flow Rate . Vital Sign Comment: Latest Jimenez Fall Score: 35 Fall Risk: Medium Risk Safety Measures: Call light Within Reach, Bed Alarm Zone 1, Side Rails Side Rails x3, Bed position Low and Locked. Fall Precautions: Yellow Socks Yellow Gown Door Sign Patient Fall Education Report given to Hill KAYE
--- NOTE | 2019-12-19 19:25 | NUR ---
NURSE NOTES: Received pt on the bed a&ox4,verbal and awake. No sob,fever and cough at the moment. Pt is complaining of LLA around her ileostomy, pt is complaining of 7/10. I called and left a voicemail to the doctor to get pain med order, waiting for his respond. pt has a PICC line on the KELLEE with IVF. bed in low position, locked , side rails upX2, call light with in reach, will continue to monitor
--- NOTE | 2019-12-19 19:25 | NUR ---
NURSE NOTES: pt remains stable , pt tolerated full liquid diet well, no c/o of ABD symptoms, pt given Fioricet X1 for c/o headache and was effective, pt continues to ambulate with front wheel walker , pt empties her ileostomy bag independently with supervision . Ileo output 930 Urine output 600
[2019-12-19 20:00] VITALS: BP 144/84
[2019-12-19] MEDS: HYDROcodone/Acetamin 5/325 tab ORAL PRN (20:53)
[2019-12-19] MEDS: Fat Emulsion Iv 20% 240 ML in Tpn 1,680 ML IV SCH (21:17)
[2019-12-19] MEDS: D5 1/2NS w/KCl 20mEq 1,000 ML IV SCH (21:18)
[2019-12-19] MEDS: QUEtiapine 200mg tab ORAL SCH (21:18)
[2019-12-19] MEDS: Dyna-Hex 2% Top Sol 2oz TOPIC SCH (21:18)
[2019-12-19] MEDS: Iron Sucrose 100 MG in NS 55 ML IVPB SCH (21:18)
[2019-12-20] VITALS: BP 100/51
--- NOTE | 2019-12-20 00:56 | NUR ---
NURSE HAND-OFF: Important Events on Shift: pt was complaining of pain around the ileostomy pouch and nausea . Called Dr Mckeon and he ordered [place], Zofran, and put the pt NPO except med and ice chips Patient Status: stable Diet: NPO Pending Orders: Pending Results/Labs:cbc,Mg,cmp,phos Pending MD notification: Latest Vital Signs: Temperature 97.6 , Pulse 78 , B/P 100 /51 , Respiratory Rate 18 , O2 SAT 98 , Room Air, O2 Flow Rate . Vital Sign Comment: Latest Jimenez Fall Score: 35 Fall Risk: Medium Risk Safety Measures: Call light Within Reach, Bed Alarm Zone 1, Side Rails Side Rails x3, Bed position Low and Locked. Fall Precautions: Yellow Socks Yellow Gown Door Sign Patient Fall Education Report given to VARGAS Sinha .
--- NOTE | 2019-12-20 00:58 | NUR ---
NURSE NOTES: Received report from Paul KAYE. Rounding is done. Patient is asleep. No any distress noted at this time. Breathing is even and unlabored at this time. Ileo is in place. PICC line is intact and patent. IV fluid and TPN are running. Bed is on alarm, locked, and lowest position. Call light within reach. Will continue to monitor.
[2019-12-20 04:00] VITALS: BP 115/79
[2019-12-20] MEDS: Vancomycin 500mg/D5W 110ml IVPB SCH ×4 (05:00→16:28)
[2019-12-20] MEDS: NovoLOG Insulin Flexpen SUBQ SCH ×4 (05:08→23:14)
[2019-12-20] MEDS: HYDROcodone/Acetamin 5/325 tab ORAL PRN ×3 (05:17→14:44)
[2019-12-20 05:18] LABS: BASOPHILS % (AUTO) 0.8 % (0.0-2.0); EOSINOPHILS % (AUTO) 1.2 % (0.0-3.0); HEMATOCRIT 30.5 % (37.0-47.0); HEMOGLOBIN 10.2 G/DL (12.0-16.0); LYMPHOCYTES % (AUTO) 13.7 % (20.0-45.0); MEAN CORPUSCULAR VOLUME 95 FL (80-99); NEUTROPHILS % (AUTO) 80.3 % (45.0-75.0); PLATELET COUNT 277 K/UL (150-450); RED CELL DISTRIBUTION WIDTH 13.6 % (11.6-14.8); WHITE BLOOD COUNT 7.3 K/UL (4.8-10.8)
[2019-12-20 05:35] LABS: ALANINE AMINOTRANSFERASE 20 U/L (12-78); ALBUMIN 2.5 G/DL (3.4-5.0); ALBUMIN/GLOBULIN RATIO 0.6 (1.0-2.7); ALKALINE PHOSPHATASE 135 U/L (46-116); ANION GAP 10 mmol/L (5-15); ASPARTATE AMINO TRANSFERASE 19 U/L (15-37); BILIRUBIN,TOTAL 0.4 MG/DL (0.2-1.0); BLOOD UREA NITROGEN 17 mg/dL (7-18); CALCIUM 8.4 MG/DL (8.5-10.1); CARBON DIOXIDE 27 MMOL/L (21-32); CHLORIDE 97 MMOL/L (98-107); CREATININE 0.9 MG/DL (0.55-1.30); POTASSIUM 3.6 MMOL/L (3.5-5.1); SODIUM 133 MMOL/L (136-145)
[2019-12-20] MEDS: Aztreonam Inj 1 GM in D5W 55 ML IVPB SCH ×3 (06:26→22:00)
--- NOTE | 2019-12-20 07:05 | NUR ---
NURSE HAND-OFF: Important Events on Shift:[pain and n/v control] Patient Status: [stable] Diet: [NPO except ice chip and meds] Pending Orders: [n] Pending Results/Labs:[n] Pending MD notification:[n] Latest Vital Signs: Temperature 99.2 , Pulse 101 , B/P 115 /79 , Respiratory Rate 19 , O2 SAT 97 , Room Air, O2 Flow Rate . Vital Sign Comment: [stable] Latest Jimenez Fall Score: 35 Fall Risk: Medium Risk Safety Measures: Call light Within Reach, Bed Alarm Zone 1, Side Rails Side Rails x3, Bed position Low and Locked. Fall Precautions: Yellow Socks Yellow Gown Door Sign Patient Fall Education Report given to [Jose Miguel KAYE].
--- NOTE | 2019-12-20 07:45 | NUR ---
NURSE NOTES: Received report from VARGAS Miller. Patient is asleep in bed on RA. Breathing is even and unlabored. No acute distress noted at this time. Ileo is in place; clean and intact. PICC line is intact and patent. IV fluid and TPN are running as ordered. Bed is in low position and locked. Call light within reach. Will continue to monitor.
[2019-12-20] MEDS: Pramipexole 0.5mg tab ORAL SCH ×2 (08:54→17:57)
--- NOTE | 2019-12-20 10:26 | General Progress Note ---
Progress Note Progress Note LAWRENCE Had severe pain at ileostomy with nausea - made npo and now resolved. Has parastomal hernia on exam and by CT scan with loop of bowel in subcutaneous tissues Abdomen soft, flat, non-tender Left lower leg with less swelling and decreased erythema Urine 980/24 hours Ileostomy 1425 Now on Aztreonam and Vancomycin for UTI and left leg cellulitis Hgb up 10.2 on Venofer Na 133 K 3.56 Mg 1.6 Albumin 2.5 Imp: short bowel syndrome with diverted distal bowel attached to failed, bleeding ileoanal J pouch UTI present on admission Left lower leg cellulitis present on admission Plan: NPO, TPN, antibiotics per ID Change and increase IV fluids in addition to TPN Prepare for surgery in several days when infections resolved/controlled Mg infusion Gio Mckeon MD Dec 20, 2019 10:26
[2019-12-20] MEDS: NS w/KCl 40mEq 1,000 ML IV SCH (11:54)
[2019-12-20 12:00] VITALS: BP 96/55
--- NOTE | 2019-12-20 14:26 | NUR ---
HAND-OFF: Report given to VARGAS Armstrong.
--- NOTE | 2019-12-20 14:31 | NUR ---
NURSE NOTES: Spoke to regarding patient and Ok to give Clear Liquid diet if patient not complain of abdominal pain. Order noted and carried out.
--- NOTE | 2019-12-20 14:45 | NUR ---
NURSE NOTES: Patient complained 6/10 on abdominal pain. Pain medication given as ordered. Will continue to monitor.
[2019-12-20 16:00] VITALS: BP 103/62
--- NOTE | 2019-12-20 17:14 | Infectious Diseases Prog Note ---
Assessment/Plan Assessment/Plan Full consult dictated: A) 1) e.coli uti 2) left leg cellulitis 3) plan on surgery, CT abdomen and pelvis noted 4) allergies - ampicillin and tetracycline, hives with amoxicillin 5) pmh noted P) 1) vancomycin and aztreonam - day # 2 2) monitor labs, f/u urinalysis 3) surgery when patient stable 4) will f/u Subjective Constitutional: Denies: fever HEENT: Denies: congestion Respiratory: Denies: shortness of breath Cardiovascular: Denies: chest pain Allergies: Coded Allergies: AMPICILLIN (Verified Allergy, Unknown, 12/17/19) TETRACYCLINE (Verified Allergy, Unknown, 12/17/19) Objective Last 24 Hour Vital Signs Date Time Temp Pulse Resp B/P (MAP) Pulse Ox O2 Delivery O2 Flow Rate FiO2 12/20/19 16:00 98.2 79 18 103/62 (76) 97 12/20/19 12:00 97.9 88 20 96/55 (69) 97 12/20/19 09:30 99.2 12/20/19 09:00 Room Air 12/20/19 04:00 99.2 101 19 115/79 (91) 97 12/20/19 00:00 97.6 78 18 100/51 (67) 98 12/19/19 21:00 Room Air 12/19/19 20:00 98.9 87 18 144/84 (104) 97 Height (Feet): 5 Height (Inches): 1.00 Weight (Pounds): 129 General Appearance: no acute distress HEENT: normocephalic, atraumatic, anicteric Respiratory/Chest: lungs clear, normal breath sounds, no respiratory distress Cardiovascular: normal rate, regular rhythm Abdomen: normal bowel sounds, soft, non tender, no organomegaly Extremities: other - left leg with less drainage Microbiology Date/Time Source Procedure Growth Status 12/18/19 11:55 Urine,Clean Catch Urine Culture - Final Escherichia Coli Complete Laboratory Tests Test 12/20/19 04:55 White Blood Count 7.3 K/UL (4.8-10.8) # Red Blood Count 3.20 M/UL (4.20-5.40) L Hemoglobin 10.2 G/DL (12.0-16.0) L Hematocrit 30.5 % (37.0-47.0) L Mean Corpuscular Volume 95 FL (80-99) Mean Corpuscular Hemoglobin 31.9 PG (27.0-31.0) H Mean Corpuscular Hemoglobin Concent 33.6 G/DL (32.0-36.0) Red Cell Distribution Width 13.6 % (11.6-14.8) Platelet Count 277 K/UL (150-450) Mean Platelet Volume 6.5 FL (6.5-10.1) Neutrophils (%) (Auto) 80.3 % (45.0-75.0) H Lymphocytes (%) (Auto) 13.7 % (20.0-45.0) L Monocytes (%) (Auto) 4.0 % (1.0-10.0) Eosinophils (%) (Auto) 1.2 % (0.0-3.0) Basophils (%) (Auto) 0.8 % (0.0-2.0) Sodium Level 133 MMOL/L (136-145) L Potassium Level 3.6 MMOL/L (3.5-5.1) Chloride Level 97 MMOL/L (98-107) L Carbon Dioxide Level 27 MMOL/L (21-32) Anion Gap 10 mmol/L (5-15) Blood Urea Nitrogen 17 mg/dL (7-18) Creatinine 0.9 MG/DL (0.55-1.30) Estimat Glomerular Filtration Rate > 60 mL/min (>60) Glucose Level 117 MG/DL (74-106) H Calcium Level 8.4 MG/DL (8.5-10.1) L Phosphorus Level 4.0 MG/DL (2.5-4.9) Magnesium Level 1.6 MG/DL (1.8-2.4) L Total Bilirubin 0.4 MG/DL (0.2-1.0) Aspartate Amino Transf (AST/SGOT) 19 U/L (15-37) Alanine Aminotransferase (ALT/SGPT) 20 U/L (12-78) Alkaline Phosphatase 135 U/L (46-116) H Total Protein 6.5 G/DL (6.4-8.2) Albumin 2.5 G/DL (3.4-5.0) L Globulin 4.0 g/dL Albumin/Globulin Ratio 0.6 (1.0-2.7) L Current Medications Medications (Trade) Dose Ordered Sig/Margarette Route PRN Reason Start Time Stop Time Status Last Admin Dose Admin Acetaminophen/ Butalbital/ Caffeine (Fioricet) 1 tab Q6H PRN ORAL headache 12/19/19 10:45 01/18/20 10:44 Acetaminophen/ Hydrocodone Bitart ([place] 5/325) 1 tab Q4H PRN ORAL Moderate Pain (Pain Scale 4-6) 12/19/19 20:45 12/26/19 20:44 12/20/19 14:44 Aztreonam 1 gm/ Dextrose 55 ml @ 110 mls/hr Q8HR IVPB 12/19/19 15:00 12/26/19 14:59 12/20/19 14:35 Chlorhexidine Gluconate (Patti-Hex 2%) 1 applic DAILY@2000 TOPIC 12/17/19 20:00 03/16/20 19:59 12/19/19 21:18 Dextrose 1,000 ml @ 0 mls/hr Q24H PRN IV PN interrupted or unavailable 12/18/19 20:00 01/17/20 19:59 Dextrose (Dextrose 50%) 25 ml Q30M PRN IV Hypoglycemia 12/18/19 20:00 03/17/20 19:59 Dextrose (Dextrose 50%) 50 ml Q30M PRN IV Hypoglycemia 12/18/19 20:00 03/17/20 19:59 Fat Emulsion Intravenous 240 ml/Amino Acids/ Electrolytes/ Dextrose 1,920 ml @ 80 mls/hr Q24H IV 12/18/19 20:00 03/17/20 19:59 12/19/19 21:17 Hydroxyzine HCl (Atarax) 50 mg Q6H PRN ORAL Itching 12/17/19 14:45 01/16/20 14:44 Insulin Aspart (NovoLOG) Q6HR SUBQ 12/19/19 00:00 03/18/20 00:00 Iron Sucrose 100 mg/Sodium Chloride 60 ml @ 240 mls/hr BEDTIME IVPB 12/18/19 21:00 12/22/19 21:14 12/19/19 21:18 Lansoprazole (Prevacid) 30 mg DAILY ORAL 12/18/19 09:00 01/17/20 08:59 12/20/19 08:54 Lorazepam (Ativan) 1 mg HSPRN PRN ORAL prn insomnia at hs 12/17/19 15:00 12/24/19 14:59 Lorazepam (Ativan) 1 mg Q6H PRN ORAL Restlessness 12/17/19 14:45 12/24/19 14:44 Ondansetron HCl (Zofran ODT) 4 mg Q4H PRN ORAL Nausea & Vomiting 12/19/19 20:45 01/18/20 20:44 12/20/19 12:09 Phytonadione (Vitamin K) 10 mg ONCE A WEEK SUBQ 12/25/19 09:00 03/24/20 08:59 Potassium Chloride/Sodium Chloride 1,000 ml @ 50 mls/hr Q20H IV 12/20/19 11:30 01/19/20 11:29 12/20/19 11:54 Pramipexole (Mirapex) 1 mg TWICE A DAY ORAL 12/17/19 18:00 01/16/20 17:59 12/20/19 08:54 Quetiapine Fumarate (SEROqueL) 200 mg BEDTIME ORAL 12/17/19 21:00 01/31/20 20:59 12/19/19 21:18 Vancomycin HCl (Vanco pharmacy to dose) 1 ea DAILY PRN MISC Per rx protocol 12/19/19 13:15 01/18/20 13:14 Vancomycin HCl 500 mg/Dextrose 110 ml @ 110 mls/hr Q12HR@0400,1600 IVPB 12/19/19 16:00 12/24/19 15:59 12/20/19 16:28 Kevan Burgess MD Dec 20, 2019 17:14
--- NOTE | 2019-12-20 17:32 | NUR ---
NURSE NOTES: Patient complained itching on bilateral hands. Spoke to regarding itching and New Benadryl cream order received. Order read back and carried out.
[2019-12-20] MEDS ORDERED: DiphenhydrAMINE & Zinc 28g Cream TOPIC PRN (17:45)
--- NOTE | 2019-12-20 18:10 | NUR ---
NURSE NOTES: Urine specimen collected and sent to lab.
--- NOTE | 2019-12-20 19:30 | NUR ---
NURSE NOTES: Received patient in bed, awake, alert, oriented x4, able to make her needs known, ambulates to the bathroom using walker, PICC line site is clean dry and intact, call light is within reach, bed is lowered, locked, alarm is on, will continue to monitor for comfort and safety.
--- NOTE | 2019-12-20 19:40 | NUR ---
NURSE HAND-OFF: Important Events on Shift: Itching on bilateral hands Patient Status: Stable Diet: NPO Pending Orders: N/A Pending Results/Labs: Pending MD notification: CBC, CMP, Mg, Phos on 12/21/19 Latest Vital Signs: Temperature 98.2 , Pulse 79 , B/P 103 /62 , Respiratory Rate 18 , O2 SAT 97 , Room Air, O2 Flow Rate . Vital Sign Comment: Stable Latest Jimenez Fall Score: 35 Fall Risk: Medium Risk Safety Measures: Call light Within Reach, Bed Alarm Zone 1, Side Rails Side Rails x3, Bed position Low and Locked. Fall Precautions: Implemented Yellow Socks Yellow Gown Door Sign Patient Fall Education Report given to Karely KAYE. Patient in stable condition.
[2019-12-20 20:00] VITALS: BP 129/74
[2019-12-20] MEDS: Dyna-Hex 2% Top Sol 2oz TOPIC SCH (20:19)
[2019-12-20] MEDS: Iron Sucrose 100 MG in NS 55 ML IVPB SCH (20:19)
[2019-12-20] MEDS: QUEtiapine 200mg tab ORAL SCH (20:19)
[2019-12-20] MEDS: Fat Emulsion Iv 20% 240 ML in Tpn 1,680 ML IV SCH (20:22)
[2019-12-21] VITALS (7 sets, daily range): BP systolic 96–139; BP diastolic 58–77
--- NOTE | 2019-12-21 00:15 | Consultation ---
DATE OF CONSULTATION: 12/20/2019 INFECTIOUS DISEASE CONSULTATION CONSULTING PHYSICIAN: Kevan Burgess MD. ATTENDING PHYSICIAN: Gio Mckeon MD. REFERRING PHYSICIAN: Gio Mckeon MD. REASON FOR CONSULTATION: E. coli UTI and left leg cellulitis and also perioperative antibiotics. CHIEF COMPLAINT: Patient's chief complaint coming in to the hospital is failed ileoanal pouch. HISTORY OF PRESENT ILLNESS: This is a very pleasant 59-year-old female who has a history of ulcerative colitis and a diverted ileoanal J-pouch. Patient has a progressive pain, bleeding, and discharge from the J-pouch. The patient underwent a total colectomy in 1991 and then a permanent ileostomy was placed and then this was diverted to a J-pouch. Because of the failed J-pouch with bleeding, discharge, and pain, patient will need surgery and what looks like possible total resection of her J-pouch. A CT scan, however, will be ordered also. Infectious Disease consultation is requested because the patient also has an E. coli urinary tract infection and also left leg cellulitis. She is allergic ampicillin and tetracyclines. She states with ampicillin, she gets hives. I saw the patient yesterday and started her on vancomycin and aztreonam. MAR was noted. Orders noted. Notes and records reviewed. Case was discussed with RN. Case was communicated with Dr. Mckeon. REVIEW OF SYSTEMS: CONSTITUTIONAL: Patient has no fever, chills, or night sweats. HEAD AND NECK: No thrush or dysphagia or neck stiffness. CARDIAC: No chest pain or palpitations. GASTROINTESTINAL: She has progressive pain, bleeding, and discharge from her J-pouch. GENITOURINARY: She does have some dysuria and frequency. No CVA tenderness. No Caban. PULMONARY: No congestion or short of breath. Mild secretions. No hemoptysis. SKIN: No rash or itching. EXTREMITIES: She has left leg pain and swelling. NEUROLOGIC: No seizures. PAST MEDICAL HISTORY: Patient has a past medical history of ulcerative colitis and history of diverted ileoanal J-pouch. She has history of colectomy. She has history of ileostomy. She has a history of bowel obstruction. She has history of multiple GI surgeries. She has history of Narcisa ileostomy. She has history of cholecystectomy, history of peristomal hernia with a mesh. She also could have a history of GERD. She is on a proton pump inhibitor. ALLERGIES: Include ampicillin, tetracycline. She gets hives with ampicillin. SOCIAL HISTORY: Negative for smoking, alcohol, or drug abuse. FAMILY HISTORY: Noncontributory. Negative for tuberculosis or cancer. MEDICATIONS: Upon reviewing the MAR, patient is on following medications. She is on vitamin K, potassium, hydrocodone, Zofran, vancomycin, aztreonam, acetaminophen, insulin. Antibiotics, Vanco, aztreonam. She gets IV fluids. She is on Prevacid, quetiapine. She is on Mirapex, Ativan, Atarax. Outside medications were noted and reconciliated. PHYSICAL EXAMINATION: VITAL SIGNS: Temperature is 98.2, pulse rate is 79, respiratory rate is 18, blood pressure 103/62, saturation 97% on room air. GENERAL: Alert, responsive, oriented x3. No acute distress. HEAD AND NECK: Oral exam, no thrush. Eye exam, no icterus. Normocephalic. Neck is supple. No JVD. HEART: Regular. No gallop or murmur. No friction rub. ABDOMEN: Soft. Positive bowel sounds. Nontender. No rebound. LUNGS: Clear bilaterally. No rhonchi or rales. SKIN: No diffuse rash or dermatitis. She might have some small rash in her hands. Some itching on her hands too. MUSCULOSKELETAL: No effusions or contractures. No septic arthritis. Lower extremity exam without cellulitis. PERIPHERAL VASCULAR: No gangrene or cyanosis. GENITOURINARY: She has no Caban. No CVA tenderness. LINE SITES: Without phlebitis. NEUROLOGIC: Intact, nonfocal. Alert and oriented x3. EXTREMITIES: She did have left leg redness, warmth, and swelling that was improved today versus yesterday. LABORATORY DATA: White count 7.3, hemoglobin 10.2. Creatinine 0.9. LFTs were noted. UA had 3+ leukocyte esterase, positive nitrite, and 30 to 40 white blood cells. Urine culture greater than 100,000 E. coli. The E. coli was sensitive to cefazolin, cefepime, Macrobid. Blood cultures are negative. IMAGING STUDIES: CT scan of the abdomen and pelvis showed the following. It showed postsurgical changes, defunctionalized small bowel, peristomal hernia, mild wall thickening. No abscess mentioned. Report was noted and reviewed. ASSESSMENT AND PLAN: 1. Patient has E. coli UTI, complicated UTI greater 100,000 organisms with significant positive urinalysis. She is allergic to ampicillin where she gets hives. Try to avoid beta-lactam antibiotics. We will continue aztreonam or Azactam for gram-negative coverage. Continue aztreonam for E. coli UTI. This should cover sensitivity to Keflex in addition. This is day #2 of Aztreonam for E. coli UTI. We will check followup UA to see if it is being effective against the UTI. Plan on 7-day course treatment, longer if needed. Again, continue aztreonam for complicated E. coli UTI. 2. Left leg cellulitis. Patient was started on Vanco yesterday and seems to have improved today. Continue Vanco for the left leg cellulitis day #2. Treatment plan on 7 to 10-day treatment course for left leg cellulitis. 3. 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 At this time, surgery is planned. Patient to be continued on Vanco, aztreonam. We will add metronidazole prior to surgery for perioperative antibiotics. Management per Dr. Mckeon. 4. History of Narcisa ileostomy. 5. History of ulcerative colitis. 6. History of multiple abdominal surgeries. 7. History of cholecystectomy. 8. History of peristomal hernia and mesh. 9. History of colectomy. 10. Continue treatment per Dr. Mckeon and consultants. 11. Allergies to ampicillin, tetracycline. She gets hives with ampicillin. 12. Social history is negative. 13. Family history is noncontributory. 14. MAR is noted. 15. Case was discussed with RN. 16. Case was discussed with Dr. Mckeon. 17. Case was discussed with the patient. Kevan Burgess M.D. DR: MATEUS JOB#: [id number] CC: ALIYA
--- NOTE | 2019-12-21 00:45 | Consultation ---
DATE OF CONSULTATION: 12/20/2019 ADDENDUM The RN told me that she might have small rash on her hands, some itching. Patient will be given Benadryl cream. If it does not improve or gets more diffuse, we will have to change her aztreonam to probably aminoglycoside for her UTI. Aztreonam, however, should be very safe as patient has penicillin allergy. There should be no cross-reactivity. Monitor closely. Kevan Burgess M.D. DR: MATEUS JOB#: [id number] CC:
--- NOTE | 2019-12-21 02:13 | NUR ---
NURSE NOTES: Called Dr Slater, left a message, notified him of increased redness on patients skin , lower back to upper thighs area and between her legs, patient stated its not itchy its hurting. CN was made aware as well.
--- NOTE | 2019-12-21 03:02 | NUR ---
NURSE NOTES: Benadryl 25 mg po given per patient request for some itching. Will continue to monitor.
[2019-12-21] MEDS: Vancomycin 500mg/D5W 110ml IVPB SCH ×6 (03:28→23:00)
[2019-12-21] MEDS: Aztreonam Inj 1 GM in D5W 55 ML IVPB SCH ×3 (03:29→21:34)
--- NOTE | 2019-12-21 03:30 | NUR ---
NURSE NOTES: Per , Dr Slater, hold Vancomycin and Azectam till further notice. CN was made aware.
[2019-12-21] MEDS: NovoLOG Insulin Flexpen SUBQ SCH ×4 (06:00→23:42)
[2019-12-21] MEDS: HYDROcodone/Acetamin 5/325 tab ORAL PRN ×4 (06:22→21:04)
[2019-12-21 06:41] LABS: APPEARANCE,URINE CLEAR; BILIRUBIN, URINE NEGATIVE (NEGATIVE); COLOR,URINE PALE YELLOW; GLUCOSE, URINE (UA) NEGATIVE (NEGATIVE); KETONES,URINE NEGATIVE (NEGATIVE); LEUKOCYTE ESTERASE ,URINE 3+ (NEGATIVE); NITRITE,URINE NEGATIVE (NEGATIVE); PH,URINE 5 (4.5-8.0); PROTEIN,URINE NEGATIVE (NEGATIVE); UROBILINOGEN,URINE NORMAL MG/DL (0.0-1.0)
[2019-12-21 06:51] LABS: BASOPHILS % (AUTO) 0.4 % (0.0-2.0); EOSINOPHILS % (AUTO) 1.8 % (0.0-3.0); HEMATOCRIT 28.5 % (37.0-47.0); HEMOGLOBIN 9.5 G/DL (12.0-16.0); LYMPHOCYTES % (AUTO) 12.2 % (20.0-45.0); MEAN CORPUSCULAR VOLUME 96 FL (80-99); MONOCYTES % (AUTO) 6.3 % (1.0-10.0); NEUTROPHILS % (AUTO) 79.4 % (45.0-75.0); PLATELET COUNT 255 K/UL (150-450); RED BLOOD COUNT 2.96 M/UL (4.20-5.40); RED CELL DISTRIBUTION WIDTH 13.6 % (11.6-14.8); WHITE BLOOD COUNT 12.4 K/UL (4.8-10.8)
--- NOTE | 2019-12-21 06:55 | NUR ---
NURSE HAND-OFF: Important Events on Shift:noted redness between patients thighs, and lower back, upper thighs/back area as well, MD was notified, antibiotics were placed on hold till further notice, will endorse to the am shift nurse. Patient Status: Diet: NPO Pending Orders: UA collected Pending Results/Labs: Pending MD notification: Latest Vital Signs: Temperature 98.7 , Pulse 74 , B/P 129 /76 , Respiratory Rate 18 , O2 SAT 98 , Room Air, O2 Flow Rate . Vital Sign Comment: Latest Jimenez Fall Score: 35 Fall Risk: Medium Risk Safety Measures: Call light Within Reach, Bed Alarm Zone 1, Side Rails Side Rails x3, Bed position Low and Locked. Fall Precautions: Yellow Socks Yellow Gown Door Sign Patient Fall Education Report given to Robert Gillespie RN
[2019-12-21 07:37] LABS: ALANINE AMINOTRANSFERASE 14 U/L (12-78); ALBUMIN 2.3 G/DL (3.4-5.0); ALBUMIN/GLOBULIN RATIO 0.6 (1.0-2.7); ALKALINE PHOSPHATASE 131 U/L (46-116); ANION GAP 9 mmol/L (5-15); ASPARTATE AMINO TRANSFERASE 17 U/L (15-37); BILIRUBIN,TOTAL 0.2 MG/DL (0.2-1.0); BLOOD UREA NITROGEN 23 mg/dL (7-18); CALCIUM 9.1 MG/DL (8.5-10.1); CARBON DIOXIDE 26 MMOL/L (21-32); CHLORIDE 98 MMOL/L (98-107); SODIUM 133 MMOL/L (136-145)
--- NOTE | 2019-12-21 07:44 | NUR ---
RD ASSESSMENT & RECOMMENDATIONS SEE CARE ACTIVITY FOR COMPLETE ASSESSMENT DAILY ESTIMATED NEEDS: Needs based on pending surgery/ 59kg 25-30 kcals/kg 2555-3585 total kcals 1-2 g protein/kg 59-118 g total protein 25-35 mL/kg 5613-9905 total fluid mLs NUTRITION DIAGNOSIS: Altered GI function R/T h/o UC, total colectomy, admitted w/ failed ileoanal J pouch with abdominal pain and J pouch bleeding as evidenced by pending laparotomy with resection ileoanal J pouch, NPO, on TPN. CURRENT DIET:NPO, TPN PO DIET RECOMMENDATIONS: PER MD PARENTERAL NUTRITION RECOMMENDATIONS: D/AA Rate: 70 IL Rate: 10 Total Rate: 80 Volume: 1920 % Dextrose: 16 % AA: 5.0 Energy (kcals/kg): 1730 Protein (g/kg protein): 84 Nonprotein KCALS: 1394 GIR (mg CHO/kg/min): 3.17 % Fat KCALS: 27.7 NPC: N Ratio: 103.7 TPN Comment: - D16% AA 5.0% @ 70ml/hr + IL 20% @ 10ml/hr -> all 3:1, total of 80ml/hr - Maintain per MD - TPN @ goal provides 100% est kcal/prot needs 29kcal/1.42g prot per kg ADDITIONAL RECOMMENDATIONS: * Standing wt as able for accurate CBW * Monitor lytes, replete as needed (low mag) * Monitor LFTs, BGs closely, need for TPN formulary change
--- NOTE | 2019-12-21 07:45 | NUR ---
NURSE NOTES: Received report from VARGAS Sosa. Patient in bed on RA. Breathing is even and unlabored. No acute distress noted at this time. Ileo is in place; clean and intact. PICC line is intact and patent. IV fluid and TPN are running as ordered. Noted redness and rash on both inner thighs, both hands started yesterday endorsed by night nurse. Will follow up. Bed is in low position and locked. Call light within reach. Will continue to monitor.
[2019-12-21] MEDS: NS w/KCl 40mEq 1,000 ML IV SCH ×3 (09:23→23:42)
[2019-12-21] MEDS: Pramipexole 0.5mg tab ORAL SCH ×2 (09:23→18:17)
--- NOTE | 2019-12-21 09:50 | General Progress Note ---
Progress Note Progress Note AVSS c/o rash between thighs and buttocks. No rash of back, abdomen or chest.Left lower leg erythema resolved and swelling improved Urine only 550cc/24 hours Ileostomy 1000cc \WBC up 12,400 Hgb 9.5 Albumin 2.3 Imp: Failed diverted J-pouch with short bowel syndrome, UTI and malnutrition on admission Martha Plan; discussed with ID - continue antibiotics, add antifungals continue npo and TPN surgery hopefully 12/23 Gio Mckeon MD Dec 21, 2019 09:50
--- NOTE | 2019-12-21 09:58 | NUR ---
NURSE NOTES: Spoke to regarding patient and new Diflucan and Clotrimazole order received. Order read back and carried out.
[2019-12-21] MEDS: Fluconazole 100mg tab ORAL SCH (12:25)
[2019-12-21] MEDS: HydrOXYzine 50mg tab ORAL PRN (18:17)
--- NOTE | 2019-12-21 19:36 | NUR ---
NURSE HAND-OFF: Important Events on Shift:Redness inner thigh Patient Status: stable Diet: npo Pending Orders: n Pending Results/Labs:n Pending MD notification:n Latest Vital Signs: Temperature 99.2 , Pulse 89 , B/P 121 /77 , Respiratory Rate 18 , O2 SAT 98 , Room Air, O2 Flow Rate . Vital Sign Comment: stable Latest Jimenez Fall Score: 35 Fall Risk: Medium Risk Safety Measures: Call light Within Reach, Bed Alarm Zone 1, Side Rails Side Rails x3, Bed position Low and Locked. Fall Precautions: Yellow Socks Yellow Gown Door Sign Patient Fall Education Report given to VARGAS Black.
--- NOTE | 2019-12-21 19:50 | NUR ---
NURSE NOTES: Received report from VARGAS Andrade. Patient seen ambulating with fww. Voiced out concerns about refusing the antibiotics and how it makes her uncomfortable. Will follow up.
--- NOTE | 2019-12-21 19:55 | NUR ---
NURSE NOTES: Patient refuses treatment and antibiotics as of the moment, MD aware.
[2019-12-21] MEDS: Dyna-Hex 2% Top Sol 2oz TOPIC SCH (20:37)
[2019-12-21] MEDS: QUEtiapine 200mg tab ORAL SCH (20:37)
[2019-12-21] MEDS: Fat Emulsion Iv 20% 240 ML in Tpn 1,680 ML IV SCH (20:39)
[2019-12-21] MEDS: Iron Sucrose 100 MG in NS 55 ML IVPB SCH (20:40)
--- NOTE | 2019-12-21 23:10 | NUR ---
NURSE NOTES: Patient refuses vital sign checks and accucheck Addendum: 12/22/19 at 0625 by Sarah Lutz RN patient allowed VS and accucheck when hours awake
[2019-12-22] VITALS: BP 102/59
[2019-12-22] MEDS: HydrOXYzine 50mg tab ORAL PRN ×2 (00:27→17:30)
[2019-12-22 04:00] VITALS: BP 104/61
[2019-12-22] MEDS: HYDROcodone/Acetamin 5/325 tab ORAL PRN ×4 (05:36→21:17)
[2019-12-22] MEDS: NovoLOG Insulin Flexpen SUBQ SCH ×4 (05:54→23:47)
[2019-12-22] MEDS: Aztreonam Inj 1 GM in D5W 55 ML IVPB SCH ×2 (05:54→14:00)
--- NOTE | 2019-12-22 05:55 | NUR ---
NURSE HAND-OFF: Important Events on Shift:(pain management, ambulation to restroom, refusing antibiotics( MD Aware) managing rashes and itching in the inner thigh and buttock.) Total ileo output: 600 mL Urine output: 450 mL Patient Status: stable Diet: NPO x ice chips and meds Pending Orders: na Pending Results/Labs:na Pending MD notification:na Latest Vital Signs: Temperature 97.8 , Pulse 96 , B/P 104 /61 , Respiratory Rate 18 , O2 SAT 96 , Room Air, O2 Flow Rate . Vital Sign Comment: [] Latest Jimenez Fall Score: 35 Fall Risk: Medium Risk Safety Measures: Call light Within Reach, Bed Alarm Zone 1, Side Rails Side Rails x3, Bed position Low and Locked. Fall Precautions: Yellow Socks Yellow Gown Door Sign Patient Fall Education Report given to [].
[2019-12-22 07:09] LABS: ALANINE AMINOTRANSFERASE 15 U/L (12-78); ALBUMIN 2.5 G/DL (3.4-5.0); ALBUMIN/GLOBULIN RATIO 0.6 (1.0-2.7); ALKALINE PHOSPHATASE 139 U/L (46-116); ANION GAP 8 mmol/L (5-15); ASPARTATE AMINO TRANSFERASE 19 U/L (15-37); BILIRUBIN,TOTAL 0.2 MG/DL (0.2-1.0); BLOOD UREA NITROGEN 20 mg/dL (7-18); CALCIUM 9.4 MG/DL (8.5-10.1); CARBON DIOXIDE 26 MMOL/L (21-32); CHLORIDE 100 MMOL/L (98-107); PHOSPHORUS 3.8 MG/DL (2.5-4.9); POTASSIUM 4.6 MMOL/L (3.5-5.1); SODIUM 134 MMOL/L (136-145)
[2019-12-22 07:19] LABS: BASOPHILS % (AUTO) 0.8 % (0.0-2.0); EOSINOPHILS % (AUTO) 3.5 % (0.0-3.0); HEMOGLOBIN 10.8 G/DL (12.0-16.0); LYMPHOCYTES % (AUTO) 13.2 % (20.0-45.0); MEAN CORPUSCULAR VOLUME 98 FL (80-99); MONOCYTES % (AUTO) 5.8 % (1.0-10.0); NEUTROPHILS % (AUTO) 76.6 % (45.0-75.0); PLATELET COUNT 247 K/UL (150-450); RED BLOOD COUNT 3.36 M/UL (4.20-5.40); RED CELL DISTRIBUTION WIDTH 13.6 % (11.6-14.8); WHITE BLOOD COUNT 14.5 K/UL (4.8-10.8)
--- NOTE | 2019-12-22 07:30 | NUR ---
NURSE NOTES: Report given to Verónica KAYE
[2019-12-22 08:00] VITALS: BP 91/55
--- NOTE | 2019-12-22 08:00 | NUR ---
NURSE NOTES: Received report from Wayne KAYE, pt a/a/o x4 laying in bed with no signs of distress or other issues at this time. conventional colostomy bag in place, no leakage notice. PICC line in place patent running NS+40mEq @75ml/hr. TPN @80ml/hr. pt has redness/villa in the inner thighs to the buttocks bilaterally, Dr. Mckeon is aware. call light within reach, bed in lowest position, side rales up x2. I will f/u as needed.
[2019-12-22] MEDS: Fluconazole 100mg tab ORAL SCH (09:06)
[2019-12-22] MEDS: Pramipexole 0.5mg tab ORAL SCH ×2 (09:06→17:07)
--- NOTE | 2019-12-22 09:55 | General Progress Note ---
Progress Note Progress Note AVSS Has developed diffuse blanching erythema of upper inner thighs, buttocka and posterior thighs. No change in perianal area. Back and torso without rashes. She refused her antibiotics for fear of allergic reaction Abdomen soft Urine 750cc Ileostomy 1700 (while NPO) WBC up 14,500 all other labs okay - albumin 2.5 Imp: UTi - Refusing antibiotics but agrees to resume Martha vs cellulitis prox thighs/buttock/posterior legs Plan: discussed with ID BCIR diet UTI and malnutrition present on admission Rash of thighs/buttocks Plan: resume antibiotics ID to assess BCIR diet f/u labs Gio Mckeon MD Dec 22, 2019 09:55
[2019-12-22] MEDS: Vancomycin 500mg/D5W 110ml IVPB SCH ×2 (10:41)
[2019-12-22 12:00] VITALS: BP 93/57
[2019-12-22] MEDS: NS w/KCl 40mEq 1,000 ML IV SCH ×2 (13:39→23:34)
--- NOTE | 2019-12-22 14:36 | Infectious Diseases Prog Note ---
Assessment/Plan Assessment/Plan ASSESSMENT AND PLAN: 1. e.coli uti, left leg cellulitis, ? drug reaction/atypical drug rash, elevated eosinophils, leukocytosis, low grade fevers, doubt septic clinically - ? rash to aztreonam and vancomycin - will discontinue - change antibiotics to clindamycin and macrobid - day # 4 antibiotics - left leg cellulitis improved, ua improved - reculture for leukocytosis and low grade fevers - ? also secondary to antibiotic drug reaction - d/w Dr. Mckeon, RN and patient - of noted patient with history of skin issues and has seen dermatologists inf past 2. skin care per protocol - ? fungal component, on clotrimazole cream and diflucan 3. 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 At this time, surgery is planned - tejas-operative antibiotics to be determined. 4. History of Narcisa ileostomy. 5. History of ulcerative colitis. 6. History of multiple abdominal surgeries. 7. History of cholecystectomy. 8. History of peristomal hernia and mesh. 9. History of colectomy. 10. Continue treatment per Dr. Mckeon and consultants. 11. Allergies to ampicillin, tetracycline. She gets hives with ampicillin. 12. Social history is negative. 13. Family history is noncontributory. 14. MAR is noted. 15. Case was discussed with RN. 16. Case was discussed with Dr. Mckeon. 17. Case was discussed with the patient. Subjective Constitutional: Denies: fever HEENT: Denies: congestion Respiratory: Denies: shortness of breath Cardiovascular: Denies: chest pain Gastrointestinal/Abdominal: Denies: nausea, vomiting, diarrhea Genitourinary: Reports: other - less urinary symptoms ; Denies: dysuria, hematuria, frequency Neurologic: Denies: headache Psychiatric: Denies: depression Skin: Reports: rash - rash now spreat to thighs, arms, hands Hematologic: Denies: bleeding Musculoskeletal: Denies: pain Allergies: Coded Allergies: AMPICILLIN (Verified Allergy, Unknown, 12/17/19) TETRACYCLINE (Verified Allergy, Unknown, 12/17/19) Objective Last 24 Hour Vital Signs Date Time Temp Pulse Resp B/P (MAP) Pulse Ox O2 Delivery O2 Flow Rate FiO2 12/22/19 12:00 99.5 106 20 93/57 (69) 96 12/22/19 11:13 97.8 12/22/19 09:00 Room Air 12/22/19 08:00 99.3 106 21 91/55 (67) 95 12/22/19 04:00 97.8 96 18 104/61 (75) 96 12/22/19 00:00 98.5 101 18 102/59 (73) 96 12/21/19 21:00 Room Air 12/21/19 20:00 98.3 87 20 97/58 (71) 100 12/21/19 16:00 98.7 89 18 121/77 (92) 98 Height (Feet): 5 Height (Inches): 1.00 Weight (Pounds): 129 General Appearance: no acute distress HEENT: normocephalic, atraumatic, anicteric, mucous membranes moist Respiratory/Chest: lungs clear, normal breath sounds, no respiratory distress, no accessory muscle use Cardiovascular: normal rate, regular rhythm, no gallop/murmur, no JVD Abdomen: normal bowel sounds, soft, non tender, no organomegaly, non distended Genitourinary: other - no zheng, no cva pain Extremities: no cyanosis, other - left leg cellulitis improved, less swelling and warmth Skin: rash - rash now on arms, hands, front/back thighs, erythema noted, no itching, no pain Chest x-ray - Procedure: XRAY Chest 1v Indication: Cough Technique: One view of the chest Comparison: none Findings: There is diffuse mild bilateral interstitial disease and central bronchial wall thickening. No focal airspace consolidation. No effusions. Normal heart size Impression: Acuity indeterminate mild interstitial disease. Correlate with clinical findings. No focal infiltrates CT abdomen and pelvis: Impression: Postsurgical changes, as described, including right lower quadrant simple ileostomy, prior total colectomy, and J-pouch. There is abundant anterior pelvic apparent defunctionalized small bowel which appears to be in continuity with and ileoanal J-pouch remnant. Most likely, this just represents old isolated small bowel, but the possibility of any of this representing either tumor or abscess is not completely excludable. Small parastomal hernia within the right lower quadrant ileostomy. This appears to be nonobstructive. Equivocal mild wall thickening of left upper quadrant jejunal loops. Enteritis is possible and correlation with clinical findings is recommended Age-indeterminate L2 vertebral body compression fracture deformity. Suspect old. Consider MRI if clinically relevant Prior cholecystectomy Inferior vena cava filter Findings discussed by phone Microbiology Date/Time Source Procedure Growth Status 12/17/19 11:30 Blood Blood Culture - Preliminary NO GROWTH AFTER 4 DAYS Resulted 12/17/19 10:42 Nasopharynx SARS-CoV-2 RdRp Gene Assay - Final Complete 12/18/19 11:55 Urine,Clean Catch Urine Culture - Preliminary Escherichia Coli Resulted Laboratory Tests Test 12/22/19 05:20 White Blood Count 14.5 K/UL (4.8-10.8) H Red Blood Count 3.36 M/UL (4.20-5.40) L Hemoglobin 10.8 G/DL (12.0-16.0) L Hematocrit 33.0 % (37.0-47.0) L Mean Corpuscular Volume 98 FL (80-99) Mean Corpuscular Hemoglobin 32.0 PG (27.0-31.0) H Mean Corpuscular Hemoglobin Concent 32.6 G/DL (32.0-36.0) Red Cell Distribution Width 13.6 % (11.6-14.8) Platelet Count 247 K/UL (150-450) Mean Platelet Volume 6.2 FL (6.5-10.1) L Neutrophils (%) (Auto) 76.6 % (45.0-75.0) H Lymphocytes (%) (Auto) 13.2 % (20.0-45.0) L Monocytes (%) (Auto) 5.8 % (1.0-10.0) Eosinophils (%) (Auto) 3.5 % (0.0-3.0) H Basophils (%) (Auto) 0.8 % (0.0-2.0) Sodium Level 134 MMOL/L (136-145) L Potassium Level 4.6 MMOL/L (3.5-5.1) Chloride Level 100 MMOL/L (98-107) Carbon Dioxide Level 26 MMOL/L (21-32) Anion Gap 8 mmol/L (5-15) Blood Urea Nitrogen 20 mg/dL (7-18) H Creatinine 1.0 MG/DL (0.55-1.30) Estimat Glomerular Filtration Rate 56.5 mL/min (>60) Glucose Level 94 MG/DL (74-106) Calcium Level 9.4 MG/DL (8.5-10.1) Phosphorus Level 3.8 MG/DL (2.5-4.9) Magnesium Level 1.9 MG/DL (1.8-2.4) Total Bilirubin 0.2 MG/DL (0.2-1.0) Aspartate Amino Transf (AST/SGOT) 19 U/L (15-37) Alanine Aminotransferase (ALT/SGPT) 15 U/L (12-78) Alkaline Phosphatase 139 U/L (46-116) H Total Protein 7.0 G/DL (6.4-8.2) Albumin 2.5 G/DL (3.4-5.0) L Globulin 4.5 g/dL Albumin/Globulin Ratio 0.6 (1.0-2.7) L Current Medications Medications (Trade) Dose Ordered Sig/Margarette Route PRN Reason Start Time Stop Time Status Last Admin Dose Admin Acetaminophen/ Butalbital/ Caffeine (Fioricet) 1 tab Q6H PRN ORAL headache 12/19/19 10:45 01/18/20 10:44 Acetaminophen/ Hydrocodone Bitart ([place] 5/325) 1 tab Q4H PRN ORAL Moderate Pain (Pain Scale 4-6) 12/19/19 20:45 12/26/19 20:44 12/22/19 10:43 Chlorhexidine Gluconate (Patti-Hex 2%) 1 applic DAILY@1999 TOPIC 12/17/19 20:00 03/16/20 19:59 12/21/19 20:37 Clindamycin HCl (Cleocin) 300 mg EVERY 6 HOURS ORAL 12/22/19 18:00 12/29/19 17:59 UNV Clotrimazole (Lotrimin) 1 applic BID TOPIC 12/21/19 10:30 03/20/20 10:29 12/22/19 09:06 Dextrose 1,000 ml @ 0 mls/hr Q24H PRN IV PN interrupted or unavailable 12/18/19 20:00 01/17/20 19:59 Dextrose (Dextrose 50%) 25 ml Q30M PRN IV Hypoglycemia 12/18/19 20:00 03/17/20 19:59 Dextrose (Dextrose 50%) 50 ml Q30M PRN IV Hypoglycemia 12/18/19 20:00 03/17/20 19:59 Diphenhydramine HCl (Benadryl) 25 mg Q6H PRN ORAL Itching 12/20/19 17:45 01/19/20 17:44 12/22/19 14:16 Fat Emulsion Intravenous 240 ml/Amino Acids/ Electrolytes/ Dextrose 1,920 ml @ 80 mls/hr Q24H IV 12/18/19 20:00 03/17/20 19:59 12/21/19 20:39 Fluconazole (Diflucan) 100 mg DAILY ORAL 12/21/19 10:30 12/28/19 10:29 12/22/19 09:06 Hydroxyzine HCl (Atarax) 50 mg Q6H PRN ORAL Itching 12/20/19 18:00 01/16/20 14:44 12/22/19 00:27 Insulin Aspart (NovoLOG) Q6HR SUBQ 12/19/19 00:00 03/18/20 00:00 Iron Sucrose 100 mg/Sodium Chloride 60 ml @ 240 mls/hr BEDTIME IVPB 12/18/19 21:00 12/22/19 21:14 12/21/19 20:40 Lansoprazole (Prevacid) 30 mg DAILY ORAL 12/18/19 09:00 01/17/20 08:59 12/22/19 09:05 Lorazepam (Ativan) 1 mg HSPRN PRN ORAL prn insomnia at hs 12/17/19 15:00 12/24/19 14:59 Lorazepam (Ativan) 1 mg Q6H PRN ORAL Restlessness 12/17/19 14:45 12/24/19 14:44 Nitrofurantoin (Macrobid) 100 mg EVERY 12 HOURS ORAL 12/22/19 21:00 12/29/19 20:59 UNV Ondansetron HCl (Zofran ODT) 4 mg Q4H PRN ORAL Nausea & Vomiting 12/19/19 20:45 01/18/20 20:44 12/22/19 10:43 Phytonadione (Vitamin K) 10 mg ONCE A WEEK SUBQ 12/25/19 09:00 03/24/20 08:59 Potassium Chloride/Sodium Chloride 1,000 ml @ 75 mls/hr [id number] IV 12/21/19 10:30 01/19/20 10:29 12/22/19 13:39 Pramipexole (Mirapex) 1 mg TWICE A DAY ORAL 12/17/19 18:00 01/16/20 17:59 12/22/19 09:06 Quetiapine Fumarate (SEROqueL) 200 mg BEDTIME ORAL 12/17/19 21:00 01/31/20 20:59 12/21/19 20:37 Kevan Burgess MD Dec 22, 2019 14:36
[2019-12-22 16:00] VITALS: BP 91/58
[2019-12-22] MEDS: Clindamycin 150mg cap ORAL SCH ×2 (17:06→23:34)
--- NOTE | 2019-12-22 19:23 | NUR ---
NURSE HAND-OFF: Important Events on Shift: pt changed ileostomy bag, continues with redness in the inner thigh all the way to the buttocks area. Patient Status: full code Diet: BCIR Pending Orders: CBC, CMP Pending Results/Labs:Blood cultures, urine cultures Pending MD notification:[] Latest Vital Signs: Temperature 99.1 , Pulse 104 , B/P 91 /58 , Respiratory Rate 21 , O2 SAT 97 , Room Air, O2 Flow Rate . Vital Sign Comment: heart rate elevated 100's Latest Jimenez Fall Score: 35 Fall Risk: Medium Risk Safety Measures: Call light Within Reach, Bed Alarm Zone 1, Side Rails Side Rails x3, Bed position Low and Locked. Fall Precautions: need supervision, uses a FWW Yellow Socks Yellow Gown Door Sign Patient Fall Education Report given to Paul KAYE, pt in stable condition. During my shift pt changed her Narcisa Ileostomy bag due to leakage, pt still complaining of rectal bleeding. - pt was able to tolerate BCIR diet with no n/v I&O's Ileostomy: 760ml Urine: 300
--- NOTE | 2019-12-22 19:24 | NUR ---
NURSE NOTES: Received report from Verónica KAYE. Rounding is done. Urine culture collected. Patient is a/o x4 and c/o pain 6/10 at this time and will give medication as ordered. Narcisa Ileo is in place and clean & intact. PICC line is in place and intact. IV fluid and TPN are running. Bed is on alarm, locked and lowest position. Call light within reach. Will continue to monitor.
--- NOTE | 2019-12-22 19:36 | CDS Physician Query ---
Clarification is required for compliance, coding accuracy, and to reflect severity of illness for this patient Dear Dr. Gio Mckeon M.D Date: 12/22/19 CDI /CDS Name: Jesus Jose Clinical Documentation Statement: "59-YOF had an upper GI bleed in December 2017 with endoscopy revealing esophagitis that was treated and resolved. Additional review of systems, the patient states that three to four weeks ago, for no apparent reason without trauma, she developed swelling of her left lower extremity distal to the knee down to the toes with some pain and redness.." [H&P Gio Mckeon M.D. 12/18/19] IMPRESSION: Failed ileoanal J-pouch with persistent pain, bleeding, and discharge with diverting Narcisa ileostomy. NUTRITION DIAGNOSIS: Altered GI function R/T h/o UC, total colectomy, admitted w / failed ileoanal J pouch with abdominal pain and J pouch bleeding as evidenced by pending laparotomy with resection ileoanal J pouch, NPO, on TPN. [ Nutrition ASSESSMENT Dariela Sellers, KYLAH Date: 12/18/19 10:37] Clinical Finding Show: BMI: 23.3 kg/m2 LAB (12/18 ) : Chem: Albumin 2.6 [3.4-5.0], Calcium 8.4 [ 8.5-10.1] Treatment: Dextrose IV (12/17-03/17) Please select the most appropriate option: [] Protein/Calorie Malnutrition [] Mild [] Moderate [] Severe [] Hypoalbuminemia [] Cachexia [] Underweight [] Intestinal malabsorption [] Other [] Unable to determine [] Not Applicable Present on Admission: [] Yes [] No [] Clinically Undetermined Physician signature Date Please also document in your Progress Notes and/or Discharge Summary and indicate if the condition was present on admission. MTDD
[2019-12-22 19:58] VITALS: BP 92/46
[2019-12-22] MEDS: LORazepam 1mg tab ORAL PRN (20:21)
[2019-12-22] MEDS: Fat Emulsion Iv 20% 240 ML in Tpn 1,680 ML IV SCH (21:09)
[2019-12-22] MEDS: Dyna-Hex 2% Top Sol 2oz TOPIC SCH (21:11)
[2019-12-22] MEDS: Iron Sucrose 100 MG in NS 55 ML IVPB SCH (21:11)
[2019-12-22] MEDS: QUEtiapine 200mg tab ORAL SCH (21:16)
[2019-12-23] VITALS: BP 96/50
[2019-12-23] MEDS: HydrOXYzine 50mg tab ORAL PRN (02:23)
[2019-12-23 04:00] VITALS: BP 99/59
[2019-12-23] MEDS: Clindamycin 150mg cap ORAL SCH ×2 (05:26→11:11)
[2019-12-23] MEDS: NovoLOG Insulin Flexpen SUBQ SCH ×3 (05:33→17:33)
[2019-12-23 06:44] LABS: BASOPHILS % (AUTO) 1.6 % (0.0-2.0); HEMATOCRIT 25.8 % (37.0-47.0); HEMOGLOBIN 8.4 G/DL (12.0-16.0); LYMPHOCYTES % (AUTO) 15.9 % (20.0-45.0); MEAN CORPUSCULAR VOLUME 98 FL (80-99); MONOCYTES % (AUTO) 8.3 % (1.0-10.0); NEUTROPHILS % (AUTO) 71.3 % (45.0-75.0); PLATELET COUNT 229 K/UL (150-450); RED BLOOD COUNT 2.63 M/UL (4.20-5.40); RED CELL DISTRIBUTION WIDTH 13.7 % (11.6-14.8); WHITE BLOOD COUNT 15.1 K/UL (4.8-10.8)
[2019-12-23 07:15] LABS: ALANINE AMINOTRANSFERASE 12 U/L (12-78); ALBUMIN 2.1 G/DL (3.4-5.0); ALBUMIN/GLOBULIN RATIO 0.6 (1.0-2.7); ALKALINE PHOSPHATASE 134 U/L (46-116); ANION GAP 9 mmol/L (5-15); ASPARTATE AMINO TRANSFERASE 19 U/L (15-37); BILIRUBIN,TOTAL 0.2 MG/DL (0.2-1.0); BLOOD UREA NITROGEN 17 mg/dL (7-18); CALCIUM 8.6 MG/DL (8.5-10.1); CARBON DIOXIDE 24 MMOL/L (21-32); CHLORIDE 102 MMOL/L (98-107); CREATININE 0.9 MG/DL (0.55-1.30); POTASSIUM 4.2 MMOL/L (3.5-5.1); SODIUM 135 MMOL/L (136-145)
--- NOTE | 2019-12-23 07:16 | NUR ---
NURSE HAND-OFF: Important Events on Shift:[itching] Patient Status: [stable] Diet: [BCIR low residue] Pending Orders: [n] Pending Results/Labs:[n] Pending MD notification:[n] Latest Vital Signs: Temperature 98.6 , Pulse 99 , B/P 99 /59 , Respiratory Rate 19 , O2 SAT 95 , Room Air, O2 Flow Rate . Vital Sign Comment: [stable] Latest Jimenez Fall Score: 35 Fall Risk: Medium Risk Safety Measures: Call light Within Reach, Bed Alarm Zone 1, Side Rails Side Rails x3, Bed position Low and Locked. Fall Precautions: Yellow Socks Yellow Gown Door Sign Patient Fall Education Report given to [Verónica KAYE].
[2019-12-23 08:00] VITALS: BP 109/65
--- NOTE | 2019-12-23 08:00 | NUR ---
NURSE NOTES: Received report from Paul KAYE, pt a/a/o x4 laying in bed with no signs of distress or other issues at this time. pt is able to ambulate with staff assistance and the use of a FWW. PICC line in place running IVF@75ml/hr and TPN @80ml/hr. pt is able to tolerate her diet with no n/v. call light within reach, bed in lowest position. side rales up x2. I will f/u as needed.
[2019-12-23] MEDS: Pramipexole 0.5mg tab ORAL SCH ×2 (08:28→17:15)
[2019-12-23] MEDS: Fluconazole 100mg tab ORAL SCH (08:28)
[2019-12-23 12:00] VITALS: BP 97/63
[2019-12-23] MEDS: LORazepam 1mg tab ORAL PRN ×2 (12:06→20:57)
--- NOTE | 2019-12-23 13:14 | Infectious Diseases Prog Note ---
Assessment/Plan Assessment/Plan ASSESSMENT AND PLAN: 1. e.coli uti, left leg cellulitis, ? drug reaction/atypical drug rash, elevated eosinophils, leukocytosis, low grade fevers, doubt septic clinically - ? rash to aztreonam and vancomycin - will discontinue - change antibiotics to amikacin and daptomycin (cannot give zyvox since patient on anti-depressant) - left leg cellulitis improved, ua improved - f/u on cultures for leukocytosis - d/w Dr. Mckeon, RN and patient - of noted patient with history of skin issues and has seen dermatologists inf past 2. skin care per protocol - ? fungal component, on clotrimazole cream and diflucan 3. 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 At this time, surgery is planned - tejas-operative antibiotics to be determined. 4. History of Narcisa ileostomy. 5. History of ulcerative colitis. 6. History of multiple abdominal surgeries. 7. History of cholecystectomy. 8. History of peristomal hernia and mesh. 9. History of colectomy. 10. Continue treatment per Dr. Mckeon and consultants. 11. Allergies to ampicillin, tetracycline. She gets hives with ampicillin. 12. Social history is negative. 13. Family history is noncontributory. 14. MAR is noted. 15. Case was discussed with RN. 16. Case was discussed with Dr. Mckeon. 17. Case was discussed with the patient. Subjective Constitutional: Reports: fatigue; Denies: fever HEENT: Denies: congestion Respiratory: Denies: shortness of breath Cardiovascular: Denies: chest pain Gastrointestinal/Abdominal: Denies: nausea Genitourinary: Reports: other - + zheng Skin: Reports: rash, other - less itching Allergies: Coded Allergies: AMPICILLIN (Verified Allergy, Unknown, 12/17/19) TETRACYCLINE (Verified Allergy, Unknown, 12/17/19) Objective Last 24 Hour Vital Signs Date Time Temp Pulse Resp B/P (MAP) Pulse Ox O2 Delivery O2 Flow Rate FiO2 12/23/19 12:06 106 20 109/65 99 12/23/19 12:00 98.1 99 20 97/63 (74) 98 12/23/19 09:00 Room Air 12/23/19 08:00 98.6 106 20 109/65 (80) 99 12/23/19 04:00 98.6 99 19 99/59 (72) 95 12/23/19 00:00 99.2 94 19 96/50 (65) 96 12/22/19 21:47 98.9 12/22/19 21:00 Room Air 12/22/19 20:51 94 19 96/50 96 12/22/19 20:21 79 18 92/46 96 12/22/19 19:58 98.9 79 18 92/46 (61) 96 12/22/19 16:00 99.1 104 21 91/58 (69) 97 Height (Feet): 5 Height (Inches): 1.00 Weight (Pounds): 129 General Appearance: no acute distress HEENT: normocephalic, atraumatic, anicteric Respiratory/Chest: lungs clear, normal breath sounds, no respiratory distress Cardiovascular: normal rate, regular rhythm Extremities: no cyanosis Skin: rash - similar rash noted - thigh, left foot, less on hands Neurologic/Psychiatric: brand 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 No focal airspace consolidation. No effusions. Normal heart size Impression: Acuity indeterminate mild interstitial disease. Correlate with clinical findings. No focal infiltrates CT abdomen and pelvis: Impression: Postsurgical changes, as described, including right lower quadrant simple ileostomy, prior total colectomy, and J-pouch. There is abundant anterior pelvic apparent defunctionalized small bowel which appears to be in continuity with and ileoanal J-pouch remnant. Most likely, this just represents old isolated small bowel, but the possibility of any of this representing either tumor or abscess is not completely excludable. Small parastomal hernia within the right lower quadrant ileostomy. This appears to be nonobstructive. Equivocal mild wall thickening of left upper quadrant jejunal loops. Enteritis is possible and correlation with clinical findings is recommended Age-indeterminate L2 vertebral body compression fracture deformity. Suspect old. Consider MRI if clinically relevant Prior cholecystectomy Inferior vena cava filter Findings discussed by phone Microbiology Date/Time Source Procedure Growth Status 12/22/19 19:30 Urine,Clean Catch Urine Culture - Preliminary NO GROWTH Resulted Laboratory Tests Test 12/23/19 05:20 White Blood Count 15.1 K/UL (4.8-10.8) H Red Blood Count 2.63 M/UL (4.20-5.40) L Hemoglobin 8.4 G/DL (12.0-16.0) L Hematocrit 25.8 % (37.0-47.0) L Mean Corpuscular Volume 98 FL (80-99) Mean Corpuscular Hemoglobin 32.1 PG (27.0-31.0) H Mean Corpuscular Hemoglobin Concent 32.7 G/DL (32.0-36.0) Red Cell Distribution Width 13.7 % (11.6-14.8) Platelet Count 229 K/UL (150-450) Mean Platelet Volume 6.0 FL (6.5-10.1) L Neutrophils (%) (Auto) 71.3 % (45.0-75.0) Lymphocytes (%) (Auto) 15.9 % (20.0-45.0) L Monocytes (%) (Auto) 8.3 % (1.0-10.0) Eosinophils (%) (Auto) 3.0 % (0.0-3.0) Basophils (%) (Auto) 1.6 % (0.0-2.0) Sodium Level 135 MMOL/L (136-145) L Potassium Level 4.2 MMOL/L (3.5-5.1) Chloride Level 102 MMOL/L (98-107) Carbon Dioxide Level 24 MMOL/L (21-32) Anion Gap 9 mmol/L (5-15) Blood Urea Nitrogen 17 mg/dL (7-18) Creatinine 0.9 MG/DL (0.55-1.30) Estimat Glomerular Filtration Rate > 60 mL/min (>60) Glucose Level 96 MG/DL (74-106) Calcium Level 8.6 MG/DL (8.5-10.1) Total Bilirubin 0.2 MG/DL (0.2-1.0) Aspartate Amino Transf (AST/SGOT) 19 U/L (15-37) Alanine Aminotransferase (ALT/SGPT) 12 U/L (12-78) Alkaline Phosphatase 134 U/L (46-116) H Total Protein 5.9 G/DL (6.4-8.2) L Albumin 2.1 G/DL (3.4-5.0) L Globulin 3.8 g/dL Albumin/Globulin Ratio 0.6 (1.0-2.7) L Current Medications Medications (Trade) Dose Ordered Sig/Margarette Route PRN Reason Start Time Stop Time Status Last Admin Dose Admin Acetaminophen/ Butalbital/ Caffeine (Fioricet) 1 tab Q6H PRN ORAL headache 12/19/19 10:45 01/18/20 10:44 Acetaminophen/ Hydrocodone Bitart ([place] 5/325) 1 tab Q4H PRN ORAL Moderate Pain (Pain Scale 4-6) 12/19/19 20:45 12/26/19 20:44 12/22/19 21:17 Chlorhexidine Gluconate (Patti-Hex 2%) 1 applic DAILY@1999 TOPIC 12/17/19 20:00 03/16/20 19:59 12/22/19 21:11 Clindamycin HCl (Cleocin) 300 mg EVERY 6 HOURS ORAL 12/22/19 18:00 12/29/19 17:59 12/23/19 11:11 Clotrimazole (Lotrimin) 1 applic BID TOPIC 12/21/19 10:30 03/20/20 10:29 12/23/19 08:29 Dextrose 1,000 ml @ 0 mls/hr Q24H PRN IV PN interrupted or unavailable 12/18/19 20:00 01/17/20 19:59 Dextrose (Dextrose 50%) 25 ml Q30M PRN IV Hypoglycemia 12/18/19 20:00 03/17/20 19:59 Dextrose (Dextrose 50%) 50 ml Q30M PRN IV Hypoglycemia 12/18/19 20:00 03/17/20 19:59 Diphenhydramine HCl (Benadryl) 25 mg Q6H PRN ORAL Itching 12/20/19 17:45 01/19/20 17:44 12/23/19 04:46 Fat Emulsion Intravenous 240 ml/Amino Acids/ Electrolytes/ Dextrose 1,920 ml @ 80 mls/hr Q24H IV 12/18/19 20:00 03/17/20 19:59 12/22/19 21:09 Fluconazole (Diflucan) 100 mg DAILY ORAL 12/21/19 10:30 12/28/19 10:29 12/23/19 08:28 Hydroxyzine HCl (Atarax) 50 mg Q6H PRN ORAL Itching 12/20/19 18:00 01/16/20 14:44 12/23/19 02:23 Insulin Aspart (NovoLOG) Q6HR SUBQ 12/19/19 00:00 03/18/20 00:00 Lansoprazole (Prevacid) 30 mg DAILY ORAL 12/18/19 09:00 01/17/20 08:59 12/23/19 08:29 Lorazepam (Ativan) 1 mg HSPRN PRN ORAL prn insomnia at hs 12/23/19 12:30 12/30/19 12:29 Lorazepam (Ativan) 1 mg Q6H PRN ORAL Restlessness 12/23/19 14:45 12/30/19 14:44 Nitrofurantoin (Macrobid) 100 mg EVERY 12 HOURS ORAL 12/22/19 21:00 12/29/19 20:59 12/23/19 08:29 Ondansetron HCl (Zofran ODT) 4 mg Q4H PRN ORAL Nausea & Vomiting 12/19/19 20:45 01/18/20 20:44 12/23/19 12:06 Phytonadione (Vitamin K) 10 mg ONCE A WEEK SUBQ 12/25/19 09:00 03/24/20 08:59 Potassium Chloride/Sodium Chloride 1,000 ml @ 50 mls/hr Q20H IV 12/23/19 12:30 01/22/20 12:29 Pramipexole (Mirapex) 1 mg TWICE A DAY ORAL 12/17/19 18:00 01/16/20 17:59 12/23/19 08:28 Quetiapine Fumarate (SEROqueL) 200 mg BEDTIME ORAL 12/17/19 21:00 01/31/20 20:59 12/22/19 21:16 Kevan Burgess MD Dec 23, 2019 13:14
[2019-12-23] MEDS: NS w/KCl 40mEq 1,000 ML IV SCH (13:18)
[2019-12-23] MEDS ORDERED: Amikacin Rx to dose MISC PRN (13:30)
--- NOTE | 2019-12-23 13:57 | NUR ---
CASE MANAGEMENT:REVIEW SI;POUCHITIS. BLE CELLULITIS. 99.2 106 20 97/63 95% ON RA WBC 15.1 H/H 8.4/25.8 NAN 135 ALB 2.1 IS;AMIKACIN IV Q36 DAPTOMYCIN IV Q24 PREVACID PO KCL IV MACROBID PO Q12 CLINDAMYCIN PO Q6 DIFLUCAN PO QD ATARAX PO Q6 PRN ZOFRAN PO Q4 TPN IV Q24 3E MED SURG STATUS DCP;FROM HOME PLAN; BCIR DIET
[2019-12-23] MEDS ORDERED: Tubing IV Secondary IV ONE (15:36)
[2019-12-23 16:00] VITALS: BP 97/57
--- NOTE | 2019-12-23 16:11 | General Progress Note ---
Progress Note Progress Note AVSS Diffuse erythema of anterior upper thighs, buttocks and posterior thighs appears less intense, now rash right foot but no lower leg swelling Antibiotics changes to Amikacin and Daptomycin Abdomen soft WBC 15,100 Hgb 8.4 (chronic persistent j-pouch bleeding per anus) Imp: UTI and ?? cellulitis vs allergic rash Plan; per ID no surgery until this is resolved f/u labs - may need transfusion (had 3 units late last year - this problem has been chronic ) Gio Mckeon MD Dec 23, 2019 16:11
[2019-12-23] MEDS: Amikacin 750 MG in NS 110 ML IV SCH (17:14)
[2019-12-23] MEDS: DAPTOmycin 350 MG in NS 50 ML IV SCH (17:14)
--- NOTE | 2019-12-23 19:20 | NUR ---
NURSE NOTES: RECEIVED PATIENT FROM VARGAS SALEH. PATIENT IS AWAKE, AAOX4, ON ROOM AIR, NO RESPIRATORY DISTRESS NOTED. PATIENT DENIES SOB. C/O MILD PAIN ABDOMEN PAIN. WILL FOLLOW UP WITH PRN NORCO 5. ILEO POUCH ON RLQ INTACT, DRAINING WELL. PICC LINE ON LEFT UPPER ARM DOUBLE LUMEN, INTACT AND PATENT. FLUSHES WELL. RASHES NOTED ON LEFT LEG, BUTTOCKS, AND BILATERAL ANKLES. WALKER AT BEDSIDE, REINFORCED TEACHING RN PLASMA CENTER LIGHT USE FOR ASSISTANCE. PATIENT VERBALIZED UNDERSTANDING. BED IS LOCKED AND LOW, BED ALARMS ACTIVE, SIDE RAILS UPX2 AND CALL LIGHT IS WITHIN REACH. WILL CONTINUE TO MONITOR.
--- NOTE | 2019-12-23 19:56 | NUR ---
NURSE HAND-OFF: Important Events on Shift: rash is getting better Patient Status: full code Diet: BCIR diet Pending Orders: CBC, CMP, CK Pending Results/Labs: UA, C-Diff, blood cx Pending MD notification:[] Latest Vital Signs: Temperature 98.6 , Pulse 106 , B/P 97 /57 , Respiratory Rate 21 , O2 SAT 98 , Room Air, O2 Flow Rate . Vital Sign Comment: [stable] Latest Jimenez Fall Score: 35 Fall Risk: Medium Risk Safety Measures: Call light Within Reach, Bed Alarm Zone 1, Side Rails Side Rails x3, Bed position Low and Locked. Fall Precautions: needs supervision Yellow Socks Yellow Gown Door Sign Patient Fall Education Report given to Nancy RN. pt in stable condition. I&O's Ileostomy: 705ml Urine: 750ml intake: 2252 ml. - pt able to tolerate BCIR diet with no n/v.
[2019-12-23 20:00] VITALS: BP 102/63
[2019-12-23] MEDS: QUEtiapine 200mg tab ORAL SCH (20:44)
[2019-12-23] MEDS: Dyna-Hex 2% Top Sol 2oz TOPIC SCH (20:44)
[2019-12-23] MEDS: HYDROcodone/Acetamin 5/325 tab ORAL PRN (20:45)
[2019-12-23] MEDS: Fat Emulsion Iv 20% 240 ML in Tpn 1,680 ML IV SCH (20:46)
--- NOTE | 2019-12-23 21:00 | NUR ---
NURSE NOTES: PATIENT REFUSED TO HAVE HER PICC LINE DRESSINGS CHANGED. RN REINFORCED TEACHING ON INFECTION PREVENTION AND INFORMED PATIENT THAT HER PICC LINE DRESSING IS DUE FOR A DRESSING CHANGE. PATIENT STILL REFUSED AND STATED THAT SHE WANTS IT DONE AT "9 AM TOMORROW" WHEN SHE IS MORE "AWAKE". WILL ENDORSE TO MORNING SHIFT.
[2019-12-24 04:00] VITALS: BP 92/58
[2019-12-24] MEDS: NovoLOG Insulin Flexpen SUBQ SCH ×4 (05:50→17:31)
[2019-12-24 06:46] LABS: ALANINE AMINOTRANSFERASE 13 U/L (12-78); ALBUMIN 2.3 G/DL (3.4-5.0); ALBUMIN/GLOBULIN RATIO 0.6 (1.0-2.7); ALKALINE PHOSPHATASE 144 U/L (46-116); ANION GAP 10 mmol/L (5-15); ASPARTATE AMINO TRANSFERASE 19 U/L (15-37); BILIRUBIN,TOTAL 0.2 MG/DL (0.2-1.0); BLOOD UREA NITROGEN 18 mg/dL (7-18); CALCIUM 8.3 MG/DL (8.5-10.1); CARBON DIOXIDE 23 MMOL/L (21-32); CHLORIDE 102 MMOL/L (98-107); CREATININE 1.1 MG/DL (0.55-1.30); PHOSPHORUS 3.9 MG/DL (2.5-4.9); POTASSIUM 3.7 MMOL/L (3.5-5.1); SODIUM 135 MMOL/L (136-145)
[2019-12-24 06:49] LABS: BASOPHILS % (AUTO) 1.2 % (0.0-2.0); EOSINOPHILS % (AUTO) 3.8 % (0.0-3.0); HEMATOCRIT 25.3 % (37.0-47.0); HEMOGLOBIN 8.3 G/DL (12.0-16.0); LYMPHOCYTES % (AUTO) 23.5 % (20.0-45.0); MEAN CORPUSCULAR VOLUME 97 FL (80-99); MONOCYTES % (AUTO) 9.6 % (1.0-10.0); NEUTROPHILS % (AUTO) 61.9 % (45.0-75.0); PLATELET COUNT 244 K/UL (150-450); RED CELL DISTRIBUTION WIDTH 13.7 % (11.6-14.8); WHITE BLOOD COUNT 12.9 K/UL (4.8-10.8)
--- NOTE | 2019-12-24 07:39 | NUR ---
NURSE HAND-OFF: Important Events on Shift: Patient refused to have her PICC dressing change. Endorsed to AM shift. Urine output 525ml, Ileo output 700ml. Patient Status: Stable Diet: BCIR Low Residue Pending Orders: N/A Pending Results/Labs: CBC, BMP, CK Pending MD notification: N/A Latest Vital Signs: Temperature 97.3 , Pulse 90 , B/P 92 /58 , Respiratory Rate 17 , O2 SAT 97 , Room Air, O2 Flow Rate . Vital Sign Comment: Stable Latest Jimenez Fall Score: 35 Fall Risk: Medium Risk Safety Measures: Call light Within Reach, Bed Alarm Zone 1, Side Rails Side Rails x3, Bed position Low and Locked. Fall Precautions: Yellow Socks Yellow Gown Door Sign Patient Fall Education Report given to VARGAS Andrade.
--- NOTE | 2019-12-24 07:45 | NUR ---
NURSE NOTES: Received report from Nancy, RN. Pt awake, alert and oriented. Pt on room air, no respiratory distress note. Denied any pain at this time. Noted ileo bag intact and draining well. PICC intact and patent running IVF and TPN as ordered. Redness inner thighs, buttocks and jaida. ankles. Discussed plan of care. Bed in low position and locked. Call light within reach. Will continue to monitor.
[2019-12-24 08:00] VITALS: BP 108/90
[2019-12-24 08:04] LABS: CREATINE KINASE 41 U/L (26-308)
[2019-12-24] MEDS: NS w/KCl 40mEq 1,000 ML IV SCH (08:30)
--- NOTE | 2019-12-24 08:56 | General Progress Note ---
Progress Note Progress Note Afebrile Feels okay tolerating po intake Rash of legs and buttocks is less intense but persists WBC down 12,900 Hgb down 8.3 Mg 1.6 Imp: Cellulitis vs. allergic rash??? Plan: No surgery until completely resolved continue antibiotics per ID transfuse 1 unit PRBC for Hgb 8.3 and ongoing daily bleeding from ileoanal J pouch - a problem going back over one year Mg infusion Gio Mckeon MD Dec 24, 2019 08:56
[2019-12-24] MEDS: Pramipexole 0.5mg tab ORAL SCH ×2 (09:15→17:31)
[2019-12-24 12:00] VITALS: BP 117/62
--- NOTE | 2019-12-24 14:30 | Infectious Diseases Prog Note ---
Assessment/Plan Assessment/Plan ASSESSMENT AND PLAN: 1. e.coli uti, left leg cellulitis, ? drug reaction/atypical drug rash, elevated eosinophils, leukocytosis, low grade fevers, doubt septic clinically - amikacin and daptomycin - left leg cellulitis improved, ua improved - surveillance urine culture with gram neg, surveillance blood cultures negative, c.diff. negative - d/w Dr. Mckeon, RN and patient - of noted patient with history of skin issues and has seen dermatologists inf past 2. skin care per protocol - ? fungal component, on clotrimazole cream 3. 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 At this time, surgery is planned - tejas-operative antibiotics to be determined. 4. History of Narcisa ileostomy. 5. History of ulcerative colitis. 6. History of multiple abdominal surgeries. 7. History of cholecystectomy. 8. History of peristomal hernia and mesh. 9. History of colectomy. 10. Continue treatment per Dr. Mckeon and consultants. 11. Allergies to ampicillin, tetracycline. She gets hives with ampicillin. 12. Social history is negative. 13. Family history is noncontributory. 14. MAR is noted. 15. Case was discussed with RN. 16. Case was discussed with Dr. Mckeon. 17. Case was discussed with the patient. Subjective Constitutional: Denies: fever HEENT: Denies: congestion Respiratory: Denies: shortness of breath Cardiovascular: Denies: chest pain Gastrointestinal/Abdominal: Reports: other - + bleed ; Denies: nausea, vomiting , diarrhea Genitourinary: Reports: other - no zheng, no cva pain ; Denies: dysuria, hematuria, frequency Neurologic: Denies: headache Skin: Reports: rash - less ithcing, rash better Hematologic: Reports: bleeding Musculoskeletal: Denies: pain Allergies: Coded Allergies: AMPICILLIN (Verified Allergy, Unknown, 12/17/19) TETRACYCLINE (Verified Allergy, Unknown, 12/17/19) Objective Last 24 Hour Vital Signs Date Time Temp Pulse Resp B/P (MAP) Pulse Ox O2 Delivery O2 Flow Rate FiO2 12/24/19 12:00 97.9 100 20 117/62 (80) 98 12/24/19 09:00 Room Air 12/24/19 08:00 97.5 96 18 108/90 (96) 98 12/24/19 04:00 97.3 90 17 92/58 (69) 97 12/23/19 21:00 Room Air 12/23/19 20:57 101 16 102/63 98 12/23/19 20:00 98.3 101 19 102/63 (76) 98 12/23/19 16:00 98.6 106 21 97/57 (70) 98 Height (Feet): 5 Height (Inches): 1.00 Weight (Pounds): 129 General Appearance: no acute distress HEENT: normocephalic, atraumatic, anicteric, mucous membranes moist Respiratory/Chest: lungs clear, normal breath sounds, no respiratory distress, no accessory muscle use Cardiovascular: normal rate, regular rhythm, no gallop/murmur, no JVD Abdomen: normal bowel sounds, soft, non tender, no organomegaly, non distended Genitourinary: other - no zheng, no cva pain Extremities: no cyanosis, other - left leg cellulitis better, foot redness left less Skin: rash - rash improved 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 No focal airspace consolidation. No effusions. Normal heart size Impression: Acuity indeterminate mild interstitial disease. Correlate with clinical findings. No focal infiltrates CT abdomen and pelvis: Impression: Postsurgical changes, as described, including right lower quadrant simple ileostomy, prior total colectomy, and J-pouch. There is abundant anterior pelvic apparent defunctionalized small bowel which appears to be in continuity with and ileoanal J-pouch remnant. Most likely, this just represents old isolated small bowel, but the possibility of any of this representing either tumor or abscess is not completely excludable. Small parastomal hernia within the right lower quadrant ileostomy. This appears to be nonobstructive. Equivocal mild wall thickening of left upper quadrant jejunal loops. Enteritis is possible and correlation with clinical findings is recommended Age-indeterminate L2 vertebral body compression fracture deformity. Suspect old. Consider MRI if clinically relevant Prior cholecystectomy Inferior vena cava filter Findings discussed by phone Microbiology Date/Time Source Procedure Growth Status 12/22/19 19:00 Blood Blood Culture - Preliminary NO GROWTH AFTER 24 HOURS Resulted 12/22/19 15:00 Blood Blood Culture - Preliminary NO GROWTH AFTER 24 HOURS Resulted 12/23/19 17:15 Stool Clostridium difficile Toxin Assay - Final Complete 12/22/19 19:30 Urine,Clean Catch Urine Culture - Preliminary Gram Negative Bacillus 1 Resulted Laboratory Tests Test 12/23/19 17:10 12/24/19 02:30 12/24/19 05:00 12/24/19 05:46 POC Whole Blood Glucose Pending 81 MG/DL (74-106) 131 MG/DL (74-106) H White Blood Count 12.9 K/UL (4.8-10.8) H Red Blood Count 2.60 M/UL (4.20-5.40) L Hemoglobin 8.3 G/DL (12.0-16.0) L Hematocrit 25.3 % (37.0-47.0) L Mean Corpuscular Volume 97 FL (80-99) Mean Corpuscular Hemoglobin 32.1 PG (27.0-31.0) H Mean Corpuscular Hemoglobin Concent 33.0 G/DL (32.0-36.0) Red Cell Distribution Width 13.7 % (11.6-14.8) Platelet Count 244 K/UL (150-450) Mean Platelet Volume 6.1 FL (6.5-10.1) L Neutrophils (%) (Auto) 61.9 % (45.0-75.0) Lymphocytes (%) (Auto) 23.5 % (20.0-45.0) Monocytes (%) (Auto) 9.6 % (1.0-10.0) Eosinophils (%) (Auto) 3.8 % (0.0-3.0) H Basophils (%) (Auto) 1.2 % (0.0-2.0) Sodium Level 135 MMOL/L (136-145) L Potassium Level 3.7 MMOL/L (3.5-5.1) Chloride Level 102 MMOL/L (98-107) Carbon Dioxide Level 23 MMOL/L (21-32) Anion Gap 10 mmol/L (5-15) Blood Urea Nitrogen 18 mg/dL (7-18) Creatinine 1.1 MG/DL (0.55-1.30) Estimat Glomerular Filtration Rate 50.7 mL/min (>60) Glucose Level 122 MG/DL (74-106) H Calcium Level 8.3 MG/DL (8.5-10.1) L Phosphorus Level 3.9 MG/DL (2.5-4.9) Magnesium Level 1.6 MG/DL (1.8-2.4) L Total Bilirubin 0.2 MG/DL (0.2-1.0) Aspartate Amino Transf (AST/SGOT) 19 U/L (15-37) Alanine Aminotransferase (ALT/SGPT) 13 U/L (12-78) Alkaline Phosphatase 144 U/L (46-116) H Total Creatine Kinase 41 U/L (26-308) Total Protein 6.1 G/DL (6.4-8.2) L Albumin 2.3 G/DL (3.4-5.0) L Globulin 3.8 g/dL Albumin/Globulin Ratio 0.6 (1.0-2.7) L Random Amikacin Level 14.9 MG/L Test 12/24/19 12:11 POC Whole Blood Glucose Pending Current Medications Medications (Trade) Dose Ordered Sig/Margarette Route PRN Reason Start Time Stop Time Status Last Admin Dose Admin Acetaminophen/ Butalbital/ Caffeine (Fioricet) 1 tab Q6H PRN ORAL headache 12/19/19 10:45 01/18/20 10:44 Acetaminophen/ Hydrocodone Bitart ([place] 5/325) 1 tab Q4H PRN ORAL Moderate Pain (Pain Scale 4-6) 12/24/19 08:45 12/31/19 08:44 Amikacin Protocol (Amikacin pharmacy to dose) 1 ea DAILY PRN MISC Per rx protocol 12/23/19 13:30 01/22/20 13:29 Amikacin Sulfate 750 mg/Sodium Chloride 113 ml @ 113 mls/hr Q36H IV 12/23/19 17:00 12/30/19 16:59 12/23/19 17:14 Chlorhexidine Gluconate (Patti-Hex 2%) 1 applic DAILY@1999 TOPIC 12/17/19 20:00 03/16/20 19:59 12/23/19 20:44 Clotrimazole (Lotrimin) 1 applic BID TOPIC 12/21/19 10:30 03/20/20 10:29 12/24/19 09:15 Daptomycin 350 mg/ Sodium Chloride 50 ml @ 100 mls/hr Q24H IV 12/23/19 16:00 12/30/19 15:59 12/23/19 17:14 Dextrose 1,000 ml @ 0 mls/hr Q24H PRN IV PN interrupted or unavailable 12/18/19 20:00 01/17/20 19:59 Dextrose (Dextrose 50%) 25 ml Q30M PRN IV Hypoglycemia 12/18/19 20:00 03/17/20 19:59 Dextrose (Dextrose 50%) 50 ml Q30M PRN IV Hypoglycemia 12/18/19 20:00 03/17/20 19:59 Diphenhydramine HCl (Benadryl) 25 mg Q6H PRN ORAL Itching 12/20/19 17:45 01/19/20 17:44 12/23/19 04:46 Fat Emulsion Intravenous 240 ml/Amino Acids/ Electrolytes/ Dextrose 1,920 ml @ 80 mls/hr Q24H IV 12/18/19 20:00 03/17/20 19:59 12/23/19 20:46 Hydroxyzine HCl (Atarax) 50 mg Q6H PRN ORAL Itching 12/20/19 18:00 01/16/20 14:44 12/23/19 02:23 Insulin Aspart (NovoLOG) Q6HR SUBQ 12/19/19 00:00 03/18/20 00:00 Lansoprazole (Prevacid) 30 mg DAILY ORAL 12/18/19 09:00 01/17/20 08:59 12/24/19 09:15 Lorazepam (Ativan) 1 mg HSPRN PRN ORAL prn insomnia at hs 12/23/19 12:30 12/30/19 12:29 12/23/19 20:57 Lorazepam (Ativan) 1 mg Q6H PRN ORAL Restlessness 12/23/19 14:45 12/30/19 14:44 Ondansetron HCl (Zofran ODT) 4 mg Q4H PRN ORAL Nausea & Vomiting 12/19/19 20:45 01/18/20 20:44 12/24/19 10:28 Phytonadione (Vitamin K) 10 mg ONCE A WEEK SUBQ 12/25/19 09:00 03/24/20 08:59 Potassium Chloride/Sodium Chloride 1,000 ml @ 50 mls/hr Q20H IV 12/23/19 12:30 01/22/20 12:29 12/24/19 08:30 Pramipexole (Mirapex) 1 mg TWICE A DAY ORAL 12/17/19 18:00 01/16/20 17:59 12/24/19 09:15 Quetiapine Fumarate (SEROqueL) 200 mg BEDTIME ORAL 12/17/19 21:00 01/31/20 20:59 12/23/19 20:44 Kevan Burgess MD Dec 24, 2019 14:30
--- NOTE | 2019-12-24 15:15 | NUR ---
NURSE NOTES: Pt in stable condition. VSS. Started blood transfusion. no s/s reactions noted. Will keep monitoring closely. Addendum: 12/24/19 at 1906 by Boyd Gillespie RN Blood transfusion completed. VSS.
[2019-12-24 16:00] VITALS: BP 126/74
[2019-12-24] MEDS: DAPTOmycin 350 MG in NS 50 ML IV SCH (16:00)
--- NOTE | 2019-12-24 19:48 | NUR ---
NURSES NOTE: Pt in bed, A/OX4, denies pain at this time. No outward s/s of distress noted. Breathing pattern is even and unlabored on RA. PICC line KELLEE, in place, dressing to be changed tonight. RLQ ileo in place, patient empties the bag herself. IFV fluids infusing without incident. ALL due medications will be given. Bed at lowest level, call light within reach. Pt will continue to be monitored.
--- NOTE | 2019-12-24 19:50 | NUR ---
NURSE HAND-OFF: Important Events on Shift:Blood transfusion Patient Status: stable Diet: BCIR Pending Orders: n Pending Results/Labs:n Pending MD notification:n Latest Vital Signs: Temperature 97.9 , Pulse 97 , B/P 126 /74 , Respiratory Rate 20 , O2 SAT 97 , Room Air, O2 Flow Rate . Vital Sign Comment: stable Latest Jimenez Fall Score: 35 Fall Risk: Medium Risk Safety Measures: Call light Within Reach, Bed Alarm Zone 1, Side Rails Side Rails x3, Bed position Low and Locked. Fall Precautions: Yellow Socks Yellow Gown Door Sign Patient Fall Education Report given to VARGAS Harris .
[2019-12-24 20:00] VITALS: BP 130/71
[2019-12-24] MEDS: QUEtiapine 200mg tab ORAL SCH (20:15)
[2019-12-24] MEDS: Dyna-Hex 2% Top Sol 2oz TOPIC SCH (20:15)
[2019-12-24] MEDS: LORazepam 1mg tab ORAL PRN (20:16)
[2019-12-24] MEDS: Fat Emulsion Iv 20% 240 ML in Tpn 1,680 ML IV SCH (20:16)
[2019-12-24] MEDS: HYDROcodone/Acetamin 5/325 tab ORAL PRN (21:46)
[2019-12-25] MEDS: HYDROcodone/Acetamin 5/325 tab ORAL PRN ×2 (02:25→13:14)
[2019-12-25] MEDS: NS w/KCl 40mEq 1,000 ML IV SCH ×2 (04:33→23:46)
[2019-12-25] MEDS: Amikacin 750 MG in NS 110 ML IV SCH (04:34)
[2019-12-25] MEDS: NovoLOG Insulin Flexpen SUBQ SCH ×5 (06:00→23:21)
[2019-12-25 06:32] LABS: BASOPHILS % (AUTO) 1.6 % (0.0-2.0); EOSINOPHILS % (AUTO) 4.2 % (0.0-3.0); HEMATOCRIT 28.9 % (37.0-47.0); HEMOGLOBIN 9.5 G/DL (12.0-16.0); LYMPHOCYTES % (AUTO) 30.9 % (20.0-45.0); MEAN CORPUSCULAR VOLUME 94 FL (80-99); MONOCYTES % (AUTO) 11.1 % (1.0-10.0); NEUTROPHILS % (AUTO) 52.3 % (45.0-75.0); PLATELET COUNT 253 K/UL (150-450); RED BLOOD COUNT 3.07 M/UL (4.20-5.40); RED CELL DISTRIBUTION WIDTH 15.5 % (11.6-14.8); WHITE BLOOD COUNT 9.2 K/UL (4.8-10.8)
--- NOTE | 2019-12-25 06:59 | NUR ---
NURSE HAND-OFF: Important Events on Shift:[NONE] Patient Status: [STABLE] Diet: [BCIR LOW RESIDUE] Pending Orders: [NONE] Pending Results/Labs:[NONE] Pending MD notification:[NONE] Latest Vital Signs: Temperature 97.8 , Pulse 97 , B/P 126 /74 , Respiratory Rate 20 , O2 SAT 97 , Room Air, O2 Flow Rate . Vital Sign Comment: [WNL; HOWEVER DECLINED 0000 0400] Latest Jimenez Fall Score: 35 Fall Risk: Medium Risk Safety Measures: Call light Within Reach, Bed Alarm Zone 1, Side Rails Side Rails x3, Bed position Low and Locked. Fall Precautions: Yellow Socks Yellow Gown Door Sign Patient Fall Education Report given to [].
[2019-12-25 07:06] LABS: ALANINE AMINOTRANSFERASE 15 U/L (12-78); ALBUMIN 2.4 G/DL (3.4-5.0); ALBUMIN/GLOBULIN RATIO 0.6 (1.0-2.7); ALKALINE PHOSPHATASE 173 U/L (46-116); ASPARTATE AMINO TRANSFERASE 19 U/L (15-37); BILIRUBIN,TOTAL 0.2 MG/DL (0.2-1.0); BLOOD UREA NITROGEN 15 mg/dL (7-18); CALCIUM 8.8 MG/DL (8.5-10.1); CARBON DIOXIDE 24 MMOL/L (21-32); CHLORIDE 101 MMOL/L (98-107); CREATININE 0.9 MG/DL (0.55-1.30); PHOSPHORUS 4.7 MG/DL (2.5-4.9); POTASSIUM 4.2 MMOL/L (3.5-5.1); SODIUM 135 MMOL/L (136-145)
--- NOTE | 2019-12-25 07:36 | NUR ---
HAND OFF: Report given to VARGAS Armstrong.
--- NOTE | 2019-12-25 07:40 | NUR ---
NURSE NOTES: Patient sitting in bed awake. No complain of pain or distress at this time. PICC line dressing and Ileostomy dressing intact and dry. TPN and IV fluid on going as ordered. Bed lowest position. Call light within reach. Will continue to monitor.
[2019-12-25 08:00] VITALS: BP 124/73
[2019-12-25] MEDS: Pramipexole 0.5mg tab ORAL SCH ×2 (08:44→18:00)
[2019-12-25] MEDS: LORazepam 1mg tab ORAL PRN ×2 (08:46→19:16)
[2019-12-25] MEDS ORDERED: Phytonadione 10 mg/mL 1ml amp SUBQ SCH (09:00)
--- NOTE | 2019-12-25 10:28 | NUR ---
RD ASSESSMENT & RECOMMENDATIONS SEE CARE ACTIVITY FOR COMPLETE ASSESSMENT DAILY ESTIMATED NEEDS: Needs based on pending surgery/ 59kg 25-30 kcals/kg 2559-4769 total kcals 1-2 g protein/kg 59-118 g total protein 25-35 mL/kg 5279-5822 total fluid mLs NUTRITION DIAGNOSIS: Altered GI function R/T h/o UC, total colectomy, admitted w/ failed ileoanal J pouch with abdominal pain and J pouch bleeding as evidenced by pending laparotomy with resection ileoanal J pouch, surgery held, BCIR low residue diet ordered, cont on TPN. CURRENT DIET:BCIR LOW RESIDUE DIET PO DIET RECOMMENDATIONS: DIET PER MD PARENTERAL NUTRITION RECOMMENDATIONS: D/AA Rate: 70 IL Rate: 10 Total Rate: 80 Volume: 1920 % Dextrose: 16 % AA: 5.0 Energy (kcals/kg): 1730 Protein (g/kg protein): 84 Nonprotein KCALS: 1394 GIR (mg CHO/kg/min): 3.17 % Fat KCALS: 27.7 NCP: N Ratio: 103.7 TPN Comment: - D16% AA 5.0% @ 70ml/hr + IL 20% @ 10ml/hr -> all 3:1, total of 80ml/hr - Maintain per MD - TPN @ goal provides 100% est kcal/prot needs 29kcal/1.42g prot per kg Monitor diet, if pt continues on BCIR low residue diet w/ continued good PO intake (>75%), decrease TPN by 50% to provide ~860 kcal, ~40g prot ADDITIONAL RECOMMENDATIONS: * Standing wt as able for accurate CBW * Monitor lytes, replete as needed * Monitor LFTs, BGs closely, need for TPN formulary change * Monitor diet (BCIR low residue diet since 12/21) and acceptance consider decreasing TPN while pt cont on BCIR low residue diet
[2019-12-25 12:00] VITALS: BP 132/78
--- NOTE | 2019-12-25 12:51 | General Progress Note ---
Progress Note Progress Note AVSS Still with bleeding from diverted ileoanal J pouch Rash of thighs, buttocks and posterior legs, and left foot, persist but slowly improving WBC 9200 Hgb 9.5 after 1 unit transfused yesterday albumin 2.4 urine C&S - morganella Imp: slowly improving Plan: surgery tentatively scheduled for Thursday 12/28: resect bleeding ileoanal J pouch with APR, possible reattach diverted bowel to current end ileostomy and repair parastomal hernia Gio Mckeon MD Dec 25, 2019 12:51
--- NOTE | 2019-12-25 14:57 | NUR ---
NURSE NOTES: Spoke to regarding sleeping medication and new Restoril order received. Order read back and carried out.
[2019-12-25] MEDS: DAPTOmycin 350 MG in NS 50 ML IV SCH (15:48)
[2019-12-25 16:00] VITALS: BP 122/77
--- NOTE | 2019-12-25 19:40 | NUR ---
NURSE HAND-OFF: Important Events on Shift: New Restoril order for sleep Patient Status: Stable Diet: BCIR low residue diet Pending Orders: N/A Pending Results/Labs: CBC, CMP, Mg, Phos on 12/26/19 Pending MD notification: N/A Latest Vital Signs: Temperature 98.2 , Pulse 93 , B/P 122 /77 , Respiratory Rate 18 , O2 SAT 98 , Room Air, O2 Flow Rate . Vital Sign Comment: Stable Latest Jimenez Fall Score: 35 Fall Risk: Medium Risk Safety Measures: Call light Within Reach, Bed Alarm Zone 1, Side Rails Side Rails x3, Bed position Low and Locked. Fall Precautions: Implemented Yellow Socks Yellow Gown Door Sign Patient Fall Education Report given to Jacki RN and Angel Luis RN. Patient in stable condition.
--- NOTE | 2019-12-25 19:45 | NUR ---
NURSE NOTES: Received patient and report from VARGAS Armstrong. Patient was alert and oriented x4 with no s/s of acute distress. No c/o pain. PICC line clean dry and intact and running fluids as ordered. Ileostomy noted and draining. Plan of care discussed.
[2019-12-25] MEDS: Dyna-Hex 2% Top Sol 2oz TOPIC SCH (20:45)
[2019-12-25] MEDS: QUEtiapine 200mg tab ORAL SCH (20:46)
[2019-12-25] MEDS: Fat Emulsion Iv 20% 240 ML in Tpn 1,680 ML IV SCH (20:47)
[2019-12-25 21:00] VITALS: BP 111/65
--- NOTE | 2019-12-26 01:08 | NUR ---
NURSE NOTES: Pt asks assist to the bathroom every hour and wishes to be disconnected from the TPN and fluids in order to do so. Educated patient on risks of always being disconnected and reconnected again. Patient changed ostomy bag independently.
[2019-12-26 04:00] VITALS: BP 113/69
[2019-12-26] MEDS: NovoLOG Insulin Flexpen SUBQ SCH ×3 (06:00→18:00)
[2019-12-26 06:41] LABS: BASOPHILS % (AUTO) 1.6 % (0.0-2.0); EOSINOPHILS % (AUTO) 4.7 % (0.0-3.0); HEMATOCRIT 32.7 % (37.0-47.0); HEMOGLOBIN 10.7 G/DL (12.0-16.0); LYMPHOCYTES % (AUTO) 23.3 % (20.0-45.0); MEAN CORPUSCULAR VOLUME 95 FL (80-99); MONOCYTES % (AUTO) 14.6 % (1.0-10.0); NEUTROPHILS % (AUTO) 55.8 % (45.0-75.0); PLATELET COUNT 267 K/UL (150-450); RED BLOOD COUNT 3.46 M/UL (4.20-5.40); RED CELL DISTRIBUTION WIDTH 15.5 % (11.6-14.8); WHITE BLOOD COUNT 10.7 K/UL (4.8-10.8)
[2019-12-26 07:15] LABS: ALBUMIN 2.6 G/DL (3.4-5.0); ALBUMIN/GLOBULIN RATIO 0.6 (1.0-2.7); BILIRUBIN,TOTAL 0.2 MG/DL (0.2-1.0); CREATININE 1.1 MG/DL (0.55-1.30); PHOSPHORUS 4.8 MG/DL (2.5-4.9); POTASSIUM 4.4 MMOL/L (3.5-5.1)
--- NOTE | 2019-12-26 07:31 | NUR ---
NURSE HAND-OFF: Important Events on Shift:monitor rash on buttocks, inner thighs, and on hands. Patient asks to go to bathroom almost every hour and wishes to be disconnected from the TPN and IV fluids. Explained risks and benefits. Patient Status: stable Diet: BCIR Pending Orders: Monitor rashes, surgery scheduled for Sunday12/29/19 Pending Results/Labs:NA Pending MD notification:NA Latest Vital Signs: Temperature 98.3 , Pulse 74 , B/P 94 /63 , Respiratory Rate 16 , O2 SAT 98 , Room Air, O2 Flow Rate 3.0 . Vital Sign Comment: stable throughout shift Latest Jimenez Fall Score: 35 Fall Risk: Medium Risk Safety Measures: Call light , Bed Alarm Zone 1, Side Rails Side Rails x2, Bed position Low and Locked. Fall Precautions: Yellow Socks Patient Fall Education Report given to VARGAS Blake.
[2019-12-26 08:00] VITALS: BP 115/62
--- NOTE | 2019-12-26 08:03 | NUR ---
NURSE NOTES: received patient lying in bed, awake, oriented, no complaint of pain or discomfort, in no sign of distress. Own walker by the bedside. Patient receives TPN and IVF through PICC KELLEE. Dressing is clean, intact. Ileostomy in place, patient drains self the content of solid waste collector bag. Reported by RN Jacki patients asks to be disconnected very frequently, and asks for her IV lines to be disconnected, posing risk of contamination. Explained to patient the contamination risk and offered her to have a bedside commode placed close to the bed. Patient refuses. Bed locked at the lowest position possible, call light within easy reach, siderails up x2. Will continue to monitor patient and follow up with the POC.
[2019-12-26] MEDS: Pramipexole 0.5mg tab ORAL SCH ×2 (09:47→18:54)
[2019-12-26] MEDS: HYDROcodone/Acetamin 5/325 tab ORAL PRN ×2 (11:18→21:58)
[2019-12-26 12:00] VITALS: BP 108/68
[2019-12-26] MEDS: LORazepam 1mg tab ORAL PRN ×2 (14:16→21:48)
[2019-12-26 16:00] VITALS: BP 125/78
--- NOTE | 2019-12-26 16:06 | General Progress Note ---
Progress Note Progress Note AVSS Skin rash - idiosyncratic per ID - slowly resolving with peeling of superficial epidermis Abdomen soft WBC 10,700 Hgb up 10.7 Albumin 2.6 Imp: Bleeding ileoanal J pouch Parastomal hernia, recurrent at ileostomy Malnutrition and anemia Plan; continue diet, TPN, antibiotics, prepare for surgery 12/28 Gio Mckeon MD Dec 26, 2019 16:06
--- NOTE | 2019-12-26 16:07 | Infectious Diseases Prog Note ---
Assessment/Plan Assessment/Plan ASSESSMENT AND PLAN: 1. e.coli uti, left leg cellulitis, ? drug reaction/atypical drug rash, elevated eosinophils, leukocytosis, low grade fevers, doubt septic clinically - amikacin and daptomycin - day # 4 - left leg cellulitis improved, ua improved - surveillance urine culture with gram neg, surveillance blood cultures negative, c.diff. negative - d/w Dr. Mckeon, RN and patient - of noted patient with history of skin issues and has seen dermatologists inf past 2. skin care per protocol - ? fungal component, on clotrimazole cream 3. 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 At this time, surgery is planned - tejas-operative antibiotics to be determined. 4. History of Narcisa ileostomy. 5. History of ulcerative colitis. 6. History of multiple abdominal surgeries. 7. History of cholecystectomy. 8. History of peristomal hernia and mesh. 9. History of colectomy. 10. Continue treatment per Dr. Mckeon and consultants. 11. Allergies to ampicillin, tetracycline. She gets hives with ampicillin. 12. Social history is negative. 13. Family history is noncontributory. 14. MAR is noted. 15. Case was discussed with RN. 16. Case was discussed with Dr. Mckeon. 17. Case was discussed with the patient. Subjective Constitutional: Denies: fever HEENT: Denies: congestion Respiratory: Denies: shortness of breath Cardiovascular: Denies: chest pain Gastrointestinal/Abdominal: Reports: diarrhea, other - no abdominal pain ; Denies: nausea, vomiting Genitourinary: Denies: dysuria, hematuria Neurologic: Denies: headache Psychiatric: Reports: other - NA Skin: Denies: rash Musculoskeletal: Reports: pain - pian controlled Allergies: Coded Allergies: AMPICILLIN (Verified Allergy, Unknown, 12/17/19) TETRACYCLINE (Verified Allergy, Unknown, 12/17/19) Objective Last 24 Hour Vital Signs Date Time Temp Pulse Resp B/P (MAP) Pulse Ox O2 Delivery O2 Flow Rate FiO2 12/26/19 14:16 98 18 108/68 97 12/26/19 12:00 98.1 98 18 108/68 (81) 97 12/26/19 11:48 98.1 12/26/19 09:00 Room Air 12/26/19 08:00 98.6 108 18 115/62 (79) 97 12/26/19 04:00 97.9 100 18 113/69 (84) 97 12/25/19 21:00 Room Air 12/25/19 21:00 97.9 96 16 111/65 (80) 97 12/25/19 19:46 96 16 111/65 97 12/25/19 19:16 93 18 122/77 98 Height (Feet): 5 Height (Inches): 1.00 Weight (Pounds): 129 General Appearance: no acute distress HEENT: normocephalic, atraumatic, anicteric, mucous membranes moist Respiratory/Chest: lungs clear, normal breath sounds, no respiratory distress, no accessory muscle use Cardiovascular: normal rate, regular rhythm, no gallop/murmur, no JVD Abdomen: normal bowel sounds, soft, non tender, no organomegaly, non distended Genitourinary: other - no zheng Extremities: no cyanosis, other - less left leg cellulitis Skin: no rash, other - improved, less pruritis 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 No focal airspace consolidation. No effusions. Normal heart size Impression: Acuity indeterminate mild interstitial disease. Correlate with clinical findings. No focal infiltrates CT abdomen and pelvis: Impression: Postsurgical changes, as described, including right lower quadrant simple ileostomy, prior total colectomy, and J-pouch. There is abundant anterior pelvic apparent defunctionalized small bowel which appears to be in continuity with and ileoanal J-pouch remnant. Most likely, this just represents old isolated small bowel, but the possibility of any of this representing either tumor or abscess is not completely excludable. Small parastomal hernia within the right lower quadrant ileostomy. This appears to be nonobstructive. Equivocal mild wall thickening of left upper quadrant jejunal loops. Enteritis is possible and correlation with clinical findings is recommended Age-indeterminate L2 vertebral body compression fracture deformity. Suspect old. Consider MRI if clinically relevant Prior cholecystectomy Inferior vena cava filter Findings discussed by phone Microbiology Date/Time Source Procedure Growth Status 12/22/19 19:00 Blood Blood Culture - Preliminary NO GROWTH AFTER 72 HOURS Resulted 12/17/19 10:42 Nasopharynx SARS-CoV-2 RdRp Gene Assay - Final Complete 12/23/19 17:15 Stool Clostridium difficile Toxin Assay - Final Complete 12/22/19 19:30 Urine,Clean Catch Urine Culture - Final Morganella Morg Spp Morganii Complete Microbiology Date/Time Source Procedure Growth Status 12/23/19 17:15 Stool Clostridium difficile Toxin Assay - Final Complete Laboratory Tests Test 12/25/19 18:03 12/25/19 23:15 12/26/19 05:20 12/26/19 05:23 POC Whole Blood Glucose Pending 95 MG/DL (74-106) 77 MG/DL (74-106) White Blood Count 10.7 K/UL (4.8-10.8) Red Blood Count 3.46 M/UL (4.20-5.40) L Hemoglobin 10.7 G/DL (12.0-16.0) L Hematocrit 32.7 % (37.0-47.0) L Mean Corpuscular Volume 95 FL (80-99) Mean Corpuscular Hemoglobin 31.0 PG (27.0-31.0) Mean Corpuscular Hemoglobin Concent 32.8 G/DL (32.0-36.0) Red Cell Distribution Width 15.5 % (11.6-14.8) H Platelet Count 267 K/UL (150-450) Mean Platelet Volume 5.6 FL (6.5-10.1) L Neutrophils (%) (Auto) 55.8 % (45.0-75.0) Lymphocytes (%) (Auto) 23.3 % (20.0-45.0) Monocytes (%) (Auto) 14.6 % (1.0-10.0) H Eosinophils (%) (Auto) 4.7 % (0.0-3.0) H Basophils (%) (Auto) 1.6 % (0.0-2.0) Sodium Level 136 MMOL/L (136-145) Potassium Level 4.4 MMOL/L (3.5-5.1) Chloride Level 101 MMOL/L (98-107) Carbon Dioxide Level 27 MMOL/L (21-32) Anion Gap 8 mmol/L (5-15) Blood Urea Nitrogen 17 mg/dL (7-18) Creatinine 1.1 MG/DL (0.55-1.30) Estimat Glomerular Filtration Rate 50.7 mL/min (>60) Glucose Level 80 MG/DL (74-106) Calcium Level 9.0 MG/DL (8.5-10.1) Phosphorus Level 4.8 MG/DL (2.5-4.9) Magnesium Level 1.8 MG/DL (1.8-2.4) Total Bilirubin 0.2 MG/DL (0.2-1.0) Aspartate Amino Transf (AST/SGOT) 21 U/L (15-37) Alanine Aminotransferase (ALT/SGPT) 19 U/L (12-78) Alkaline Phosphatase 194 U/L (46-116) H Total Protein 6.9 G/DL (6.4-8.2) Albumin 2.6 G/DL (3.4-5.0) L Globulin 4.3 g/dL Albumin/Globulin Ratio 0.6 (1.0-2.7) L Test 12/26/19 11:30 POC Whole Blood Glucose Pending Current Medications Medications (Trade) Dose Ordered Sig/Margarette Route PRN Reason Start Time Stop Time Status Last Admin Dose Admin Acetaminophen/ Butalbital/ Caffeine (Fioricet) 1 tab Q6H PRN ORAL headache 12/19/19 10:45 01/18/20 10:44 Acetaminophen/ Hydrocodone Bitart (Fordyce 5/325) 1 tab Q4H PRN ORAL Moderate Pain (Pain Scale 4-6) 12/24/19 08:45 12/31/19 08:44 12/26/19 11:18 Amikacin Protocol (Amikacin pharmacy to dose) 1 ea DAILY PRN MISC Per rx protocol 12/23/19 13:30 01/22/20 13:29 Amikacin Sulfate 750 mg/Sodium Chloride 113 ml @ 113 mls/hr Q36H IV 12/23/19 17:00 12/30/19 16:59 12/25/19 04:34 Chlorhexidine Gluconate (Patti-Hex 2%) 1 applic DAILY@2000 TOPIC 12/17/19 20:00 03/16/20 19:59 12/25/19 20:45 Clotrimazole (Lotrimin) 1 applic BID TOPIC 12/21/19 10:30 03/20/20 10:29 12/26/19 09:47 Daptomycin 350 mg/ Sodium Chloride 50 ml @ 100 mls/hr Q24H IV 12/23/19 16:00 12/30/19 15:59 12/25/19 15:48 Dextrose 1,000 ml @ 0 mls/hr Q24H PRN IV PN interrupted or unavailable 12/18/19 20:00 01/17/20 19:59 Dextrose (Dextrose 50%) 25 ml Q30M PRN IV Hypoglycemia 12/18/19 20:00 03/17/20 19:59 Dextrose (Dextrose 50%) 50 ml Q30M PRN IV Hypoglycemia 12/18/19 20:00 03/17/20 19:59 Diphenhydramine HCl (Benadryl) 25 mg Q6H PRN ORAL Itching 12/20/19 17:45 01/19/20 17:44 12/25/19 22:06 Fat Emulsion Intravenous 240 ml/Amino Acids/ Electrolytes/ Dextrose 1,920 ml @ 80 mls/hr Q24H IV 12/18/19 20:00 03/17/20 19:59 12/25/19 20:47 Hydroxyzine HCl (Atarax) 50 mg Q6H PRN ORAL Itching 12/20/19 18:00 01/16/20 14:44 12/23/19 02:23 Insulin Aspart (NovoLOG) Q6HR SUBQ 12/19/19 00:00 03/18/20 00:00 Lansoprazole (Prevacid) 30 mg DAILY ORAL 12/18/19 09:00 01/17/20 08:59 12/26/19 09:46 Lorazepam (Ativan) 1 mg Q6H PRN ORAL Restlessness 12/23/19 14:45 12/30/19 14:44 12/26/19 14:16 Ondansetron HCl (Zofran ODT) 4 mg Q4H PRN ORAL Nausea & Vomiting 12/19/19 20:45 01/18/20 20:44 12/26/19 14:16 Phytonadione (Vitamin K) 10 mg ONCE A WEEK SUBQ 12/25/19 09:00 03/24/20 08:59 12/25/19 08:44 Potassium Chloride/Sodium Chloride 1,000 ml @ 50 mls/hr Q20H IV 12/23/19 12:30 01/22/20 12:29 12/25/19 23:46 Pramipexole (Mirapex) 1 mg TWICE A DAY ORAL 12/17/19 18:00 01/16/20 17:59 12/26/19 09:47 Quetiapine Fumarate (SEROqueL) 200 mg BEDTIME ORAL 12/17/19 21:00 01/31/20 20:59 12/25/19 20:46 Temazepam (RestoriL) 7.5 mg HSPRN PRN ORAL Insomnia 12/25/19 21:00 01/01/20 20:59 12/25/19 22:06 Kevan Burgess MD Dec 26, 2019 16:07
--- NOTE | 2019-12-26 16:49 | NUR ---
CASE MANAGEMENT:REVIEW 12/26/19 SI;BLEEDING FROM ILEANAL J POUCH . POUCHITIS. BLE CELLULITIS. 98.6 108 18 115/62 97% ON RA ALB 2.6 IS;AMIKACIN IV Q36 DAPTOMYCIN IV Q24 KCL IV @50ML/HR ATARAX PO Q6 PRN TPN IV Q24 SEROQUEL PO QHS 3E MED SURG STATUS DCP;FROM HOME PLAN; SURG PLANNED Sunday
[2019-12-26] MEDS: DAPTOmycin 350 MG in NS 50 ML IV SCH (16:53)
[2019-12-26] MEDS: Amikacin 750 MG in NS 110 ML IV SCH (16:53)
[2019-12-26] MEDS: Dyna-Hex 2% Top Sol 2oz TOPIC SCH (19:50)
[2019-12-26] MEDS: QUEtiapine 200mg tab ORAL SCH (19:50)
[2019-12-26] MEDS: NS w/KCl 40mEq 1,000 ML IV SCH (19:50)
--- NOTE | 2019-12-26 19:55 | NUR ---
NURSE HAND-OFF: Important Events on Shift:[] Patient Status: [stable] Diet: [BCIR low residue] Pending Orders: [CBC, CMP, Mg, Phos] Pending Results/Labs:[] Pending MD notification:[] Latest Vital Signs: Temperature 98.4 , Pulse 96 , B/P 125 /78 , Respiratory Rate 17 , O2 SAT 99 , Room Air, O2 Flow Rate . Vital Sign Comment: [] Latest Jimenez Fall Score: 35 Fall Risk: Medium Risk Safety Measures: Call light Within Reach, Bed Alarm Zone 1, Side Rails Side Rails x3, Bed position Low and Locked. Fall Precautions: Yellow Socks Yellow Gown Door Sign Patient Fall Education Report given to [RN João].
[2019-12-26 20:00] VITALS: BP 117/70
[2019-12-26] MEDS: Fat Emulsion Iv 20% 240 ML in Tpn 1,680 ML IV SCH (20:00)
--- NOTE | 2019-12-26 20:00 | NUR ---
NURSE NOTES: Pt is in bed, awake and alert. No acute distress noted. Vitals stable. TPN infusing at 80ml/hr. NS with 40 mEq KCL running at 50ml/hr. Pt is able to walk to the bathroom with walker to empty her ileostomy bag and void. Intake and output will be monitored and recorded. Fall precaution in place. Bed locked low in position,side rails up and call light within reach. Pt will be monitored.
[2019-12-27] VITALS: BP 116/70
[2019-12-27] MEDS: HydrOXYzine 50mg tab ORAL PRN ×3 (01:19→21:10)
--- NOTE | 2019-12-27 03:12 | NUR ---
NURSE NOTES: Pt is in bed, asleep. No acute distress noted.
[2019-12-27 04:00] VITALS: BP 118/72
[2019-12-27] MEDS: NovoLOG Insulin Flexpen SUBQ SCH ×4 (06:00→18:00)
--- NOTE | 2019-12-27 06:00 | NUR ---
NURSE NOTES: Ileostomy output during this shift is 900ml and urine output 1100ml.
[2019-12-27 07:09] LABS: ALBUMIN 2.3 G/DL (3.4-5.0); ALBUMIN/GLOBULIN RATIO 0.6 (1.0-2.7); BILIRUBIN,TOTAL 0.1 MG/DL (0.2-1.0); CALCIUM 8.7 MG/DL (8.5-10.1); PHOSPHORUS 4.9 MG/DL (2.5-4.9); POTASSIUM 4.4 MMOL/L (3.5-5.1)
--- NOTE | 2019-12-27 07:15 | NUR ---
NURSE HAND-OFF: Important Events on Shift:[] Patient Status: [Stable] Diet: [Low Residue] Pending Orders: [] Pending Results/Labs:[] Pending MD notification:[] Latest Vital Signs: Temperature 97.4 , Pulse 91 , B/P 118 /72 , Respiratory Rate 17 , O2 SAT 96 , Room Air, O2 Flow Rate . Vital Sign Comment: [] Latest Jimenez Fall Score: 35 Fall Risk: Medium Risk Safety Measures: Call light Within Reach, Bed Alarm Zone 1, Side Rails Side Rails x3, Bed position Low and Locked. Fall Precautions: Yellow Socks Yellow Gown Door Sign Patient Fall Education Report given to [VARGAS Goldstein. Informed that pt is fall risk.].
--- NOTE | 2019-12-27 07:18 | NUR ---
NURSE NOTES: Handoff received from João RN. Patient is awake and alert, eating breakfast, no signs of distress noted, breathing even and unlabored on room air. Patient's left upper arm PICC is patent and asymptomatic, running IVF and TPN as ordered. Patient has dani ileostomy. Peeling skin noted on bilateral hands and flank. Bed is low and locked, side rails up x2, call light is within reach.
[2019-12-27 07:33] LABS: BASOPHILS % (AUTO) 1.4 % (0.0-2.0); EOSINOPHILS % (AUTO) 5.2 % (0.0-3.0); HEMOGLOBIN 9.9 G/DL (12.0-16.0); MEAN CORPUSCULAR VOLUME 96 FL (80-99); MONOCYTES % (AUTO) 15.2 % (1.0-10.0); NEUTROPHILS % (AUTO) 53.3 % (45.0-75.0); PLATELET COUNT 240 K/UL (150-450); RED BLOOD COUNT 3.14 M/UL (4.20-5.40); RED CELL DISTRIBUTION WIDTH 16.1 % (11.6-14.8); WHITE BLOOD COUNT 9.3 K/UL (4.8-10.8)
[2019-12-27 08:00] VITALS: BP 111/66
[2019-12-27] MEDS: Pramipexole 0.5mg tab ORAL SCH ×2 (08:24→18:10)
[2019-12-27] MEDS: LORazepam 1mg tab ORAL PRN ×2 (09:49→18:41)
--- NOTE | 2019-12-27 10:20 | General Progress Note ---
Progress Note Progress Note AVSS Rash still present but slowly improving - may limit ability to do the perineal portion of the abdomino-perineal proctectomy - can get down close to anus through the abdomen and defer perineal portion to another time. 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
[2019-12-27 12:00] VITALS: BP 116/67
[2019-12-27] MEDS: HYDROcodone/Acetamin 5/325 tab ORAL PRN (15:26)
[2019-12-27 16:00] VITALS: BP 120/73
[2019-12-27 16:19] LABS: CREATINE KINASE 130 U/L (26-308)
[2019-12-27] MEDS: DAPTOmycin 350 MG in NS 50 ML IV SCH (17:08)
[2019-12-27] MEDS: NS w/KCl 40mEq 1,000 ML IV SCH (17:08)
--- NOTE | 2019-12-27 18:00 | NUR ---
NURSE NOTES: Total urine output: 1500 Total colostomy output: 620 Patient did not have much of an appetite today, she states that she didn't like the food. She was encouraged to eat as much of her meals as she could, plus some snacks. Patient was helped to the bathroom several times today and her colostomy bag was also changed. Patient's skin is still peeling on her hands and thighs. Benadryl was given in the AM for itching and the patient requested one norco for pain in the afternoon.
--- NOTE | 2019-12-27 19:20 | NUR ---
NURSE HAND-OFF: Important Events on Shift:[] Patient Status: stable Diet: BCIR, Clear liquid for breakfast Pending Orders: Pending Results/Labs: Pending MD notification: Latest Vital Signs: Temperature 98.2 , Pulse 97 , B/P 120 /73 , Respiratory Rate 20 , O2 SAT 100 , Room Air, O2 Flow Rate . Vital Sign Comment: Latest Jimenez Fall Score: 35 Fall Risk: Medium Risk Safety Measures: Call light Within Reach, Bed Alarm Zone 1, Side Rails Side Rails x3, Bed position Low and Locked. Fall Precautions: Yellow Socks Yellow Gown Door Sign Patient Fall Education Report given to Imelda KAYE.
--- NOTE | 2019-12-27 19:36 | NUR ---
NURSE NOTES: Patient is awake and alert x4. On room air with no signs of distress or SOB. KELLEE PICC intact and running IVF/TPN as ordered. R lower quadrant ileo intact. Walker at bedside - reminded pt to call for assist when ambulating with walker. Bed locked and in lowest position. Call light in reach. Will continue plan of care.
[2019-12-27 19:44] VITALS: BP 126/82
[2019-12-27] MEDS: Fat Emulsion Iv 20% 240 ML in Tpn 1,680 ML IV SCH (19:55)
[2019-12-27] MEDS: Dyna-Hex 2% Top Sol 2oz TOPIC SCH (19:55)
[2019-12-27] MEDS: QUEtiapine 200mg tab ORAL SCH (20:04)
[2019-12-28] VITALS: BP 115/68
[2019-12-28] MEDS: NovoLOG Insulin Flexpen SUBQ SCH ×4 (00:33→18:00)
[2019-12-28] MEDS: LORazepam 1mg tab ORAL PRN ×3 (00:41→18:49)
[2019-12-28] MEDS: Amikacin 750 MG in NS 110 ML IV SCH (04:49)
--- NOTE | 2019-12-28 06:46 | NUR ---
NURSE NOTES: Total urine output: 1000cc Total colostomy output: 625cc Ileostomy bag changed due to leakage of previous bag.
--- NOTE | 2019-12-28 06:47 | NUR ---
NURSE HAND-OFF: Important Events on Shift: Diet changed to clear liquid this AM Patient Status: Stable Diet: Clear liquid Pending Orders: N/A Pending Results/Labs:CBC, CMP Pending MD notification: N/A Latest Vital Signs: Temperature 97.2 , Pulse 94 , B/P 118 /72 , Respiratory Rate 18 , O2 SAT 97 , Room Air, O2 Flow Rate . Vital Sign Comment: Latest Jimenez Fall Score: 35 Fall Risk: Medium Risk Safety Measures: Call light Within Reach, Bed Alarm Zone 1, Side Rails Side Rails x3, Bed position Low and Locked. Fall Precautions: Yellow Socks Yellow Gown Door Sign Patient Fall Education Addendum: 12/28/19 at 0732 by FERNANDO STANFORD RN Report given to VARGAS Sanches
[2019-12-28 06:52] LABS: BASOPHILS % (AUTO) 1.6 % (0.0-2.0); EOSINOPHILS % (AUTO) 4.4 % (0.0-3.0); HEMATOCRIT 30.9 % (37.0-47.0); HEMOGLOBIN 10.2 G/DL (12.0-16.0); LYMPHOCYTES % (AUTO) 27.6 % (20.0-45.0); MEAN CORPUSCULAR VOLUME 94 FL (80-99); NEUTROPHILS % (AUTO) 56.4 % (45.0-75.0); PLATELET COUNT 280 K/UL (150-450); RED BLOOD COUNT 3.28 M/UL (4.20-5.40); RED CELL DISTRIBUTION WIDTH 15.6 % (11.6-14.8)
[2019-12-28 07:04] LABS: ALBUMIN 2.6 G/DL (3.4-5.0); ALBUMIN/GLOBULIN RATIO 0.6 (1.0-2.7); BILIRUBIN,TOTAL 0.2 MG/DL (0.2-1.0); PHOSPHORUS 5.3 MG/DL (2.5-4.9); POTASSIUM 4.3 MMOL/L (3.5-5.1)
--- NOTE | 2019-12-28 07:40 | NUR ---
NURSE NOTES: Received report from Imelda KAYE, pt sleeping in bed with no signs of distress or other issues at this time. PICC line in place running TPN@80 and NS+40mEq @50ml/hr. per report total Ileo out put 625ml, total urine out put: 1000ml. pt is able to ambulate with assist and the use of a FWW. call light within reach, bed in lowest position. side rales up x2. I will f/u as needed. - plan for OR tomorrow for: Resection of J pouch with PRASHANT, hernia repair.
[2019-12-28 08:00] VITALS: BP 130/84
[2019-12-28] MEDS: Pramipexole 0.5mg tab ORAL SCH ×2 (08:39→18:41)
--- NOTE | 2019-12-28 09:43 | General Progress Note ---
Progress Note Progress Note AVSS Now on clear liquid diet for surgery tomorrow. intermittent peristomal pain - due to recurrent hernia. Bleeding from J pouch less yesterday. ABdomen soft Rash of thighs and buttocks also involves perineum - may defer the perineal portion of abdominoperineal proctectomy until a later date, and remove J pouch as close to anal canal as possible from within the abdomen WBC up 12,000 Hgb up 10.2 Albumin 2.6 Phos up - will remove from TPN Imp: Failed bleeding chronic ileoanal J pouch malfunction diverted small bowel attached to J pouch with partial short bowel syndrome Plan; Full discussion with patient re surgery, resect J pouch, revise ileostomy with possible reanastomosis of diverted small bowel, repair of recurrent hernia , possible stoma relocation, possible gastrostomy, including risks (bleeding, infection, delayed healing of perineum, injury to adjacent structures or organs , DVT despite prophylaxis, recurrent stoma problems including hernia, etc. Gio Mckeon MD Dec 28, 2019 09:43
[2019-12-28 12:00] VITALS: BP 133/83
[2019-12-28] MEDS: NS w/KCl 40mEq 1,000 ML IV SCH (12:30)
[2019-12-28] MEDS: HYDROcodone/Acetamin 5/325 tab ORAL PRN ×2 (14:10→20:30)
[2019-12-28] MEDS ORDERED: Amikacin Rx to dose MISC PRN (15:00)
--- NOTE | 2019-12-28 15:04 | Infectious Diseases Prog Note ---
Assessment/Plan Assessment/Plan ASSESSMENT AND PLAN: 1. e.coli uti, morganella uti, left leg cellulitis, ? drug reaction/atypical drug rash, elevated eosinophils, leukocytosis, low grade fevers better surgery planned for tomorrow - amikacin and daptomycin, add flagyl for surgery - left leg cellulitis improved, c.diff. negative - monitor mild leukocytosis, labs, surveillance ua - d/w Dr. Mckeon, RN and patient 2. skin care per protocol - ? fungal component, on clotrimazole cream 3. 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 4. History of Narcisa ileostomy. 5. History of ulcerative colitis. 6. History of multiple abdominal surgeries. 7. History of cholecystectomy. 8. History of peristomal hernia and mesh. 9. History of colectomy. 10. Continue treatment per Dr. Mckeon and consultants. 11. Allergies to ampicillin, tetracycline. She gets hives with ampicillin. 12. Social history is negative. 13. Family history is noncontributory. 14. MAR is noted. 15. Case was discussed with RN. 16. Case was discussed with Dr. Mckeon. 17. Case was discussed with the patient. Subjective Constitutional: Denies: fever HEENT: Denies: congestion Respiratory: Denies: shortness of breath Cardiovascular: Denies: chest pain Gastrointestinal/Abdominal: Denies: nausea, vomiting Genitourinary: Denies: dysuria, hematuria Neurologic: Denies: headache Psychiatric: Denies: depression Skin: Reports: rash - less, less pruritis Hematologic: Denies: bleeding Musculoskeletal: Denies: pain Allergies: Coded Allergies: AMPICILLIN (Verified Allergy, Unknown, 12/17/19) TETRACYCLINE (Verified Allergy, Unknown, 12/17/19) Objective Last 24 Hour Vital Signs Date Time Temp Pulse Resp B/P (MAP) Pulse Ox O2 Delivery O2 Flow Rate FiO2 12/28/19 14:40 97.9 12/28/19 12:00 98.3 100 18 133/83 (100) 96 12/28/19 11:53 100 21 130/84 96 12/28/19 11:23 100 21 130/84 96 12/28/19 09:00 Room Air 12/28/19 08:00 97.9 100 21 130/84 (99) 96 12/28/19 00:41 106 21 115/68 96 12/28/19 00:00 97.2 106 21 115/68 (84) 96 12/27/19 20:34 Room Air 12/27/19 19:44 97.1 95 19 126/82 (97) 97 12/27/19 18:41 97 20 120/73 100 12/27/19 16:00 98.2 97 20 120/73 (89) 100 Height (Feet): 5 Height (Inches): 1.00 Weight (Pounds): 129 General Appearance: no acute distress HEENT: normocephalic, atraumatic, anicteric Respiratory/Chest: lungs clear, normal breath sounds, no respiratory distress Cardiovascular: normal rate, regular rhythm, no gallop/murmur, no JVD Abdomen: normal bowel sounds, soft, non tender, no organomegaly, non distended Genitourinary: other - no zheng, no cva pain Extremities: no cyanosis, other - left leg cellulitis, foot redness better Skin: rash - less Neurologic/Psychiatric: environmental monitoring specialist II-XII grossly normal, alert, oriented x 3, responsive Lymphatic: no neck adenopathy Musculoskeletal: no effusion Chest x-ray - Procedure: XRAY Chest 1v Indication: Cough Technique: One view of the chest Comparison: none Findings: There is diffuse mild bilateral interstitial disease and central bronchial wall thickening. No focal airspace consolidation. No effusions. Normal heart size Impression: Acuity indeterminate mild interstitial disease. Correlate with clinical findings. No focal infiltrates CT abdomen and pelvis: Impression: Postsurgical changes, as described, including right lower quadrant simple ileostomy, prior total colectomy, and J-pouch. There is abundant anterior pelvic apparent defunctionalized small bowel which appears to be in continuity with and ileoanal J-pouch remnant. Most likely, this just represents old isolated small bowel, but the possibility of any of this representing either tumor or abscess is not completely excludable. Small parastomal hernia within the right lower quadrant ileostomy. This appears to be nonobstructive. Equivocal mild wall thickening of left upper quadrant jejunal loops. Enteritis is possible and correlation with clinical findings is recommended Age-indeterminate L2 vertebral body compression fracture deformity. Suspect old. Consider MRI if clinically relevant Prior cholecystectomy Inferior vena cava filter Findings discussed by phone Microbiology Date/Time Source Procedure Growth Status 12/27/19 11:13 Nasopharynx SARS-CoV-2 RdRp Gene Assay - Final Complete cultures - noted Laboratory Tests Test 12/27/19 18:09 12/28/19 06:05 12/28/19 11:06 POC Whole Blood Glucose 87 MG/DL (74-106) 86 MG/DL (74-106) White Blood Count 12.0 K/UL (4.8-10.8) H Red Blood Count 3.28 M/UL (4.20-5.40) L Hemoglobin 10.2 G/DL (12.0-16.0) L Hematocrit 30.9 % (37.0-47.0) L Mean Corpuscular Volume 94 FL (80-99) Mean Corpuscular Hemoglobin 31.2 PG (27.0-31.0) H Mean Corpuscular Hemoglobin Concent 33.0 G/DL (32.0-36.0) Red Cell Distribution Width 15.6 % (11.6-14.8) H Platelet Count 280 K/UL (150-450) Mean Platelet Volume 5.9 FL (6.5-10.1) L Neutrophils (%) (Auto) 56.4 % (45.0-75.0) Lymphocytes (%) (Auto) 27.6 % (20.0-45.0) Monocytes (%) (Auto) 10.0 % (1.0-10.0) Eosinophils (%) (Auto) 4.4 % (0.0-3.0) H Basophils (%) (Auto) 1.6 % (0.0-2.0) Sodium Level 134 MMOL/L (136-145) L Potassium Level 4.3 MMOL/L (3.5-5.1) Chloride Level 99 MMOL/L (98-107) Carbon Dioxide Level 26 MMOL/L (21-32) Anion Gap 9 mmol/L (5-15) Blood Urea Nitrogen 17 mg/dL (7-18) Creatinine 1.0 MG/DL (0.55-1.30) Estimat Glomerular Filtration Rate 56.5 mL/min (>60) Glucose Level 88 MG/DL (74-106) Calcium Level 9.0 MG/DL (8.5-10.1) Phosphorus Level 5.3 MG/DL (2.5-4.9) H Magnesium Level 2.2 MG/DL (1.8-2.4) Total Bilirubin 0.2 MG/DL (0.2-1.0) Aspartate Amino Transf (AST/SGOT) 22 U/L (15-37) Alanine Aminotransferase (ALT/SGPT) 18 U/L (12-78) Alkaline Phosphatase 171 U/L (46-116) H Total Protein 7.0 G/DL (6.4-8.2) Albumin 2.6 G/DL (3.4-5.0) L Globulin 4.4 g/dL Albumin/Globulin Ratio 0.6 (1.0-2.7) L Current Medications Medications (Trade) Dose Ordered Sig/Margarette Route PRN Reason Start Time Stop Time Status Last Admin Dose Admin Acetaminophen/ Butalbital/ Caffeine (Fioricet) 1 tab Q6H PRN ORAL headache 12/19/19 10:45 01/18/20 10:44 Acetaminophen/ Hydrocodone Bitart ([place] 5/325) 1 tab Q4H PRN ORAL Moderate Pain (Pain Scale 4-6) 12/24/19 08:45 12/31/19 08:44 12/28/19 14:10 Amikacin Protocol (Amikacin pharmacy to dose) 1 ea DAILY PRN MISC Per rx protocol 12/23/19 13:30 01/22/20 13:29 Amikacin Sulfate 750 mg/Sodium Chloride 113 ml @ 113 mls/hr Q36H IV 12/23/19 17:00 12/30/19 16:59 12/28/19 04:49 Chlorhexidine Gluconate (Patti-Hex 2%) 1 applic DAILY@2000 TOPIC 12/17/19 20:00 03/16/20 19:59 12/27/19 19:55 Clotrimazole (Lotrimin) 1 applic BID TOPIC 12/21/19 10:30 03/20/20 10:29 12/28/19 08:39 Daptomycin 350 mg/ Sodium Chloride 50 ml @ 100 mls/hr Q24H IV 12/23/19 16:00 12/30/19 15:59 12/27/19 17:08 Dextrose 1,000 ml @ 0 mls/hr Q24H PRN IV PN interrupted or unavailable 12/18/19 20:00 01/17/20 19:59 Dextrose (Dextrose 50%) 25 ml Q30M PRN IV Hypoglycemia 12/18/19 20:00 03/17/20 19:59 Dextrose (Dextrose 50%) 50 ml Q30M PRN IV Hypoglycemia 12/18/19 20:00 03/17/20 19:59 Diphenhydramine HCl (Benadryl) 25 mg Q6H PRN ORAL Itching 12/20/19 17:45 01/19/20 17:44 12/28/19 11:23 Fat Emulsion Intravenous 240 ml/Amino Acids/ Electrolytes/ Dextrose 1,920 ml @ 80 mls/hr Q24H IV 12/28/19 20:00 01/27/20 19:59 Fat Emulsion Intravenous 240 ml/Amino Acids/ Electrolytes/ Dextrose 1,920 ml @ 80 mls/hr Q24H IV 12/18/19 20:00 12/28/19 19:59 12/27/19 19:55 Heparin Sodium (Porcine) (Heparin 5000 units/ml) 5,000 units ONCE SUBQ 12/29/19 10:00 12/29/19 11:00 Hydroxyzine HCl (Atarax) 50 mg Q6H PRN ORAL Itching 12/20/19 18:00 01/16/20 14:44 12/27/19 21:10 Insulin Aspart (NovoLOG) Q6HR SUBQ 12/19/19 00:00 03/18/20 00:00 Lansoprazole (Prevacid) 30 mg DAILY ORAL 12/18/19 09:00 01/17/20 08:59 12/28/19 08:39 Lorazepam (Ativan) 1 mg Q6H PRN ORAL Restlessness 12/23/19 14:45 12/30/19 14:44 12/28/19 11:23 Ondansetron HCl (Zofran ODT) 4 mg Q4H PRN ORAL Nausea & Vomiting 12/19/19 20:45 01/18/20 20:44 12/27/19 15:26 Phytonadione (Vitamin K) 10 mg ONCE A WEEK SUBQ 12/25/19 09:00 03/24/20 08:59 12/25/19 08:44 Potassium Chloride/Sodium Chloride 1,000 ml @ 50 mls/hr Q20H IV 12/23/19 12:30 01/22/20 12:29 12/28/19 12:30 Pramipexole (Mirapex) 1 mg TWICE A DAY ORAL 12/17/19 18:00 01/16/20 17:59 12/28/19 08:39 Quetiapine Fumarate (SEROqueL) 200 mg BEDTIME ORAL 12/17/19 21:00 01/31/20 20:59 12/27/19 20:04 Temazepam (RestoriL) 7.5 mg HSPRN PRN ORAL Insomnia 12/25/19 21:00 01/01/20 20:59 12/27/19 21:08 Kevan Burgess MD Dec 28, 2019 15:04
--- NOTE | 2019-12-28 15:32 | NUR ---
NURSE NOTES: Report received from Verónica KAYE, rounds made. Patient up to bathroom, with walker/seat, AOx4, calm./ Respirations even/unlabored on RA. IV NS +40 KCL at 50 ml and TPN at 80 ml/hr infusing via KELLEE PICC, dressing CDI. Voids in bathroom. Narcisa Ileostomy appliance in place, CDI. Skin peeling to hands and buttocks, redness to inner thighs and buttocks. Denies SOB, NV, pain. Will continue to monitor.
--- NOTE | 2019-12-28 15:40 | NUR ---
HAND-OFF: Report given to Susanna KAYE, pt in stable condition. - patient is able to ambulate around the room with with staff assistance. - pt is able to tolerate her diet with no s/s of n/v I&O's Ileostomy: 200ml urine: 500ml intake: 944ml
[2019-12-28 16:00] VITALS: BP 139/91
[2019-12-28] MEDS: DAPTOmycin 350 MG in NS 50 ML IV SCH (16:28)
[2019-12-28] MEDS: HydrOXYzine 50mg tab ORAL PRN (18:49)
--- NOTE | 2019-12-28 19:15 | NUR ---
NURSE HAND-OFF: Important Events on Shift:Plans for OR 12/28, consent signed, Type+Cross done, Patient Status: stable Diet: clear liquids, NPO at midnight Outputs: Narcisa: 500 ml Urine: 1075 ml Pending Orders: Heparin SQ x1 at 1000 12/28 Pending Results/Labs:UA needs to be collected Pending MD notification:none Latest Vital Signs: Temperature 97.3 , Pulse 94 , B/P 139 /91 , Respiratory Rate 18 , O2 SAT 98 , Room Air, O2 Flow Rate . Vital Sign Comment: none Latest Jimenez Fall Score: 35 Fall Risk: Medium Risk Safety Measures: Call light Within Reach, Bed Alarm Zone 1, Side Rails Side Rails x3, Bed position Low and Locked. Fall Precautions: Yellow Socks Yellow Gown Door Sign Patient Fall Education Report given to Martine KAYE .
--- NOTE | 2019-12-28 19:20 | NUR ---
NURSE NOTES: Received report from VARGAS Elder. Rounds done, patient alert and oriented, no distress noted. PICC in KELLEE, intact, infusing IVF and TPN. Narcisa ileo bag intact. See MAR for meds, discussed NPO status after midnight. Patient verbalizes understanding. Tolerating PO well, no nausea. Bed in low position, locked, side rails up x2, call light within reach, will continue to monitor.
[2019-12-28 20:00] VITALS: BP 137/83
[2019-12-28] MEDS ORDERED: Fat Emulsion Iv 20% 240 ML in Tpn 1,680 ML IV SCH (20:00)
[2019-12-28] MEDS: Dyna-Hex 2% Top Sol 2oz TOPIC SCH (20:29)
[2019-12-28] MEDS: QUEtiapine 200mg tab ORAL SCH (20:29)
--- NOTE | 2019-12-28 20:30 | NUR ---
NURSE NOTES: Spoke with Matt from pharmacy and confirmed order for TPN for this evening. All parameters double checked with him as well as with charge nurse prior to infusion. Requested filter to infuse, received from pharmacy.
[2019-12-28] MEDS: Fat Emulsion Iv 20% 240 ML in Tpn 1,680 ML IV SCH ×2 (20:34→20:42)
[2019-12-28 21:42] LABS: APPEARANCE,URINE SLIGHTLY CLOUDY; COLOR,URINE PALE YELLOW; KETONES,URINE NEGATIVE (NEGATIVE); PROTEIN,URINE NEGATIVE (NEGATIVE)
[2019-12-28 21:43] LABS: BILIRUBIN, URINE NEGATIVE (NEGATIVE); GLUCOSE, URINE (UA) NEGATIVE (NEGATIVE); LEUKOCYTE ESTERASE ,URINE NEGATIVE (NEGATIVE); NITRITE,URINE NEGATIVE (NEGATIVE); UROBILINOGEN,URINE NORMAL MG/DL (0.0-1.0)
[2019-12-29] VITALS (22 sets, daily range): BP systolic 107–177; BP diastolic 63–104
--- NOTE | 2019-12-29 01:05 | NUR ---
NURSE NOTES: Patient called, incontinent of urine. Assisted with perineal cleaning and linen was changed. Patient then got up and used restroom, and washed up again. Patient continues to have redness bilat thighs, between thighs and buttocks. Patient has cleansed her skin vigorously three times so far this shift. Encouraged to be gentle on her skin. Patient states she feels she's not clean or dry enough. Assisted as needed and as she will allow me. Encouraged to call as needed. Patient ambulated back to bed with walker, tolerated activity well. States she does feel anxious and skin is itchy, will give meds for both complaints. Will continue to monitor.
[2019-12-29] MEDS: LORazepam 1mg tab ORAL PRN (01:35)
[2019-12-29] MEDS: HYDROcodone/Acetamin 5/325 tab ORAL PRN ×2 (02:35→09:11)
[2019-12-29 05:53] LABS: BASOPHILS % (AUTO) 1.5 % (0.0-2.0); HEMOGLOBIN 9.2 G/DL (12.0-16.0); LYMPHOCYTES % (AUTO) 17.9 % (20.0-45.0); MEAN CORPUSCULAR VOLUME 95 FL (80-99); MONOCYTES % (AUTO) 9.9 % (1.0-10.0); NEUTROPHILS % (AUTO) 64.8 % (45.0-75.0); PLATELET COUNT 275 K/UL (150-450); RED BLOOD COUNT 2.96 M/UL (4.20-5.40); RED CELL DISTRIBUTION WIDTH 15.2 % (11.6-14.8); WHITE BLOOD COUNT 8.7 K/UL (4.8-10.8)
[2019-12-29] MEDS: NovoLOG Insulin Flexpen SUBQ SCH ×4 (06:00→19:50)
--- NOTE | 2019-12-29 06:00 | NUR ---
NURSE NOTES: Output for last 12 hour shift: Ileo: 450 cc Void: 1150 + (one time incontinent)
[2019-12-29 06:13] LABS: ALANINE AMINOTRANSFERASE 19 U/L (12-78); ALBUMIN 2.3 G/DL (3.4-5.0); ALBUMIN/GLOBULIN RATIO 0.6 (1.0-2.7); ALKALINE PHOSPHATASE 141 U/L (46-116); ANION GAP 7 mmol/L (5-15); ASPARTATE AMINO TRANSFERASE 27 U/L (15-37); BILIRUBIN,TOTAL 0.2 MG/DL (0.2-1.0); BLOOD UREA NITROGEN 19 mg/dL (7-18); CALCIUM 8.2 MG/DL (8.5-10.1); CARBON DIOXIDE 28 MMOL/L (21-32); CHLORIDE 104 MMOL/L (98-107); CREATININE 0.9 MG/DL (0.55-1.30); PHOSPHORUS 5.3 MG/DL (2.5-4.9); POTASSIUM 4.5 MMOL/L (3.5-5.1); SODIUM 139 MMOL/L (136-145)
--- NOTE | 2019-12-29 07:15 | NUR ---
NURSE HAND-OFF: Important Events on Shift: up to bathroom several times, incontinent x1 Patient Status: stable Diet: NPO Pending Orders: Pending Results/Labs: Pending MD notification: Latest Vital Signs: Temperature 97.6 , Pulse 95 , B/P 107 /64 , Respiratory Rate 18 , O2 SAT 96 , Room Air, O2 Flow Rate . Vital Sign Comment: Latest Jimenez Fall Score: 35 Fall Risk: Medium Risk Safety Measures: Call light Within Reach, Bed Alarm Zone 1, Side Rails Side Rails x2, Bed position Low and Locked. Fall Precautions: Yellow Socks Yellow Gown Door Sign Patient Fall Education Report given to VARGAS Sanches
--- NOTE | 2019-12-29 08:05 | NUR ---
NURSE NOTES: Received report Martine KAYE, pt a/a/o x4 laying in bed with no signs of distress or other issues at this time. Narcisa ileostomy in place, draining well total over night out put:450ml. Urine: 1150ml. patient is able to ambulate with assist and the use of a FWW. call light within reach, bed in lowest position. side rales up x2. I will f/u as needed. plan: TO OR today at 12:00
[2019-12-29] MEDS: NS w/KCl 40mEq 1,000 ML IV SCH ×2 (08:30→21:33)
--- NOTE | 2019-12-29 08:34 | General Progress Note ---
Progress Note Progress Note Hgb 9.2 will transfuse 1 unit PRBC now and hold 2 for surgery this afternoon Gio Mckeon MD Dec 29, 2019 08:34
--- NOTE | 2019-12-29 08:35 | Pre-Procedure Note/Attestation ---
Pre-Procedure Note/Attestation Complete Prior to Procedure Planned Procedure: not applicable Procedure Narrative: resection of failed, bleeding ileoanal J pouch, possible abdomino-perineal proctectomy, revision of ileostomy and repair recurrent parastomal hernia, possible gastrostomy Attestation I attest that I discussed the nature of the procedure; its benefits; risks and complications; and alternatives (and the risks and benefits of such alternatives ), prior to the procedure, with the patient (or the patient's legal medical detail representative). I attest that, if there was a reasonable possibility of needing a blood transfusion, the patient (or the patient's legal medical detail representative) was given the [place] Department [employer] standardized written summary, pursuant to the Jossue Hoda Blood Safety Act ([place] Health and Safety Code # 1645, as amended). I attest that I re-evaluated the patient just prior to the surgery and that there has been no change in the patient's H&P, except as documented below: Gio Mckeon MD Dec 29, 2019 08:35
[2019-12-29] MEDS: Pramipexole 0.5mg tab ORAL SCH ×2 (09:10→18:00)
[2019-12-29] MEDS ORDERED: Heparin 5000 units/ml inj SUBQ SCH (10:00)
--- NOTE | 2019-12-29 10:15 | Anethesia Preoperative Eval ---
Anesthesia Pre-op PMH/ROS General Date of Evaluation: Dec 29, 2019 Time of Evaluation: 09:54 Anesthesiologist: Tiny ASA Score: ASA 3 Mallampati Score Class I : Soft palate, uvula, fauces, pillars visible Class II: Soft palate, uvula, fauces visible Class III: Soft palate, base of uvula visible Class IV: Only hard plate visible Mallampati Classification: Class II Surgeon: Mike Diagnosis: Failed Ileo-J Pouch Surgical Procedure: Abdominoperineal Proctectomy, Ileostomy Anesthesia History: none Family History: no anesthesia problems Allergies: Coded Allergies: AMPICILLIN (Verified Allergy, Unknown, 12/17/19) TETRACYCLINE (Verified Allergy, Unknown, 12/17/19) Medications: see eMAR Patient NPO?: Yes Past Medical History Cardiovascular: Reports: HTN Gastrointestinal/Genitourinary: Reports: GERD, other - Ulcerative Colitis Hematology/Immune: Reports: anemia Musculoskeletal/Integumentary: Reports: edema PSxH Narrative: 1. Failed ileoanal J-pouch with persistent pain, bleeding, and discharge with diverting Narcisa ileostomy. 2. History of ulcerative colitis. 3. STATUS POST MULTIPLE ABDOMINAL OPERATIONS: 3.1. Total colectomy with ileoanal J-pouch in 1991. 3.2. Creation of Narcisa ileostomy leaving J-pouch in place in 2002. 3.3. Laparotomy x2 for small bowel obstruction in 2012. 3.4. Open cholecystectomy in 2013. 3.5. Repair of parastomal hernia with Strattice mesh and findings of severe adhesions in November 2017. Anesthesia Pre-op Phys. Exam Physician Exam Last Vital Signs Date Time Temp Pulse Resp B/P (MAP) Pulse Ox O2 Delivery O2 Flow Rate FiO2 12/29/19 01:35 95 18 107/64 96 12/29/19 01:30 97.6 12/28/19 21:00 Room Air Constitutional: NAD Neurologic: CN 2-12 intact Cardiovascular: RRR Respiratory: CTA Gastrointestinal: S/NT/ND Airway Exam Mallampati Score: Class II MO: full ROM: full Teeth: missing, intact Anesthesia Pre-op A/P Labs Hematology Test 12/29/19 05:15 White Blood Count 8.7 K/UL (4.8-10.8) Red Blood Count 2.96 M/UL (4.20-5.40) L Hemoglobin 9.2 G/DL (12.0-16.0) L Hematocrit 28.0 % (37.0-47.0) L Mean Corpuscular Volume 95 FL (80-99) Mean Corpuscular Hemoglobin 31.3 PG (27.0-31.0) H Mean Corpuscular Hemoglobin Concent 33.0 G/DL (32.0-36.0) Red Cell Distribution Width 15.2 % (11.6-14.8) H Platelet Count 275 K/UL (150-450) Mean Platelet Volume 5.9 FL (6.5-10.1) L Neutrophils (%) (Auto) 64.8 % (45.0-75.0) Lymphocytes (%) (Auto) 17.9 % (20.0-45.0) L Monocytes (%) (Auto) 9.9 % (1.0-10.0) Eosinophils (%) (Auto) 6.0 % (0.0-3.0) H Basophils (%) (Auto) 1.5 % (0.0-2.0) Chemistry Test 12/28/19 11:06 12/28/19 18:43 12/29/19 05:15 POC Whole Blood Glucose 86 MG/DL (74-106) 110 MG/DL (74-106) H 96 MG/DL (74-106) Sodium Level 139 MMOL/L (136-145) Potassium Level 4.5 MMOL/L (3.5-5.1) Chloride Level 104 MMOL/L (98-107) Carbon Dioxide Level 28 MMOL/L (21-32) Anion Gap 7 mmol/L (5-15) Blood Urea Nitrogen 19 mg/dL (7-18) H Creatinine 0.9 MG/DL (0.55-1.30) Estimat Glomerular Filtration Rate > 60 mL/min (>60) Glucose Level 103 MG/DL (74-106) Calcium Level 8.2 MG/DL (8.5-10.1) L Phosphorus Level 5.3 MG/DL (2.5-4.9) H Magnesium Level 1.9 MG/DL (1.8-2.4) Total Bilirubin 0.2 MG/DL (0.2-1.0) Aspartate Amino Transf (AST/SGOT) 27 U/L (15-37) Alanine Aminotransferase (ALT/SGPT) 19 U/L (12-78) Alkaline Phosphatase 141 U/L (46-116) H Total Protein 6.1 G/DL (6.4-8.2) L Albumin 2.3 G/DL (3.4-5.0) L Globulin 3.8 g/dL Albumin/Globulin Ratio 0.6 (1.0-2.7) L Risk Assessment & Plan Assessment: ASA 3 Plan: GA Status Change Before Surgery: No Pre-Antibiotics Drug: Johnnie White MD Dec 29, 2019 10:15
[2019-12-29] MEDS ORDERED: Lidocaine 1% MPF 10mg/ml 5ml ONE (11:37)
[2019-12-29] MEDS ORDERED: Sodium Chloride 10ml vial INJ ONE (11:37)
[2019-12-29] MEDS ORDERED: fentaNYL 100 mcg/2 mL IV ONE ×2 (11:38→14:26)
[2019-12-29] MEDS ORDERED: LR 1000ml 1,000 ML IVLG SCH (11:40)
--- NOTE | 2019-12-29 11:43 | Immediate Post-Op Evaluation ---
Immediate Post-Op Evalulation Immediate Post-Op Evalulation Procedure: Abdominoperineal Proctectomy, Ileostomy Date of Evaluation: Dec 29, 2019 Time of Evaluation: 16:49 IV Fluids: 800 LR Blood Products: 1 U PRBC Estimated Blood Loss: 200 Urinary Output: 500 Blood Pressure Systolic: 143 Blood Pressure Diastolic: 92 Pulse Rate: 102 Respiratory Rate: 16 O2 Sat by Pulse Oximetry: 97 Temperature (Fahrenheit): 97.2 Pain Score (1-10): 2 Nausea: No Vomiting: No Complications 0 Patient Status: awake, reacts, patent, extubated, none Hydration Status: adequate Drug: Flagyl 500 mg IV Given Within 1 Hr of Incision: Yes Time Given: 12:01 Johnnie Franks MD Dec 29, 2019 11:43
[2019-12-29] MEDS ORDERED: Midazolam 2mg/2ml Inj IVP PRN (11:45)
[2019-12-29] MEDS ORDERED: Meperidine 25mg/0.5ml Inj (FOR RIGORS ONLY) IV PRN (11:45)
[2019-12-29] MEDS ORDERED: Labetalol 5mg/ml 20ml vial IV PRN (11:45)
[2019-12-29] MEDS ORDERED: oxyCODONE HCL/Acetaminophen 5/325mg ORAL PRN (11:45)
[2019-12-29] MEDS ORDERED: LORazepam Inj 2mg/ml 1ml IV PRN (11:45)
[2019-12-29] MEDS ORDERED: Acetaminophen (Non formulary) 100 ML IV ONE (11:45)
[2019-12-29] MEDS ORDERED: HYDROcodone/Acetamin 7.5/325 tab ORAL PRN (11:45)
[2019-12-29] MEDS ORDERED: Atropine Sulfate 0.4mg/ml inj IVP PRN (11:45)
[2019-12-29] MEDS ORDERED: HYDROcodone/Acetamin 5/325 tab ORAL PRN (11:45)
[2019-12-29] MEDS ORDERED: fentaNYL 100 mcg/2 mL IV PRN (11:45)
[2019-12-29] MEDS ORDERED: DiphenhydrAMINE 50mg/ml Inj IVP PRN ×3 (11:45→20:30)
[2019-12-29] MEDS ORDERED: Ketorolac 30mg Inj IV PRN ×2 (11:45)
[2019-12-29] MEDS ORDERED: Hydromorphone 0.5mg/0.5ml inj IVP PRN (11:45)
[2019-12-29] MEDS ORDERED: Lidocaine 1% Plain 30 ml INJ ONE ×3 (11:48→15:49)
[2019-12-29] MEDS ORDERED: Rocuronium Bromide 50mg/5ml Inj IV ONE (11:57)
[2019-12-29] MEDS ORDERED: Sterile Water Irrig 1000ml IRRIG ONE (12:00)
[2019-12-29] MEDS ORDERED: NS Irrig 1000ml ONE (12:00)
[2019-12-29] MEDS ORDERED: propofoL 1,000mg/100ml IV ONE (12:00)
[2019-12-29] MEDS ORDERED: LR 1000ml ONE (12:00)
[2019-12-29] MEDS ORDERED: NeoSporin Gu Irrig 1ml Amp IRRIG ONE (12:01)
[2019-12-29] MEDS ORDERED: Bacitracin 50000 Units Vial ONE (12:01)
--- NOTE | 2019-12-29 13:22 | NUR ---
RD ASSESSMENT & RECOMMENDATIONS SEE CARE ACTIVITY FOR COMPLETE ASSESSMENT DAILY ESTIMATED NEEDS: Needs based on pending surgery/ 59kg 25-30 kcals/kg 3113-9447 total kcals 1-2 g protein/kg 59-118 g total protein 25-35 mL/kg 0950-4659 total fluid mLs NUTRITION DIAGNOSIS: Altered GI function R/T h/o UC, total colectomy, admitted w/ failed ileoanal J pouch with abdominal pain and J pouch bleeding as evidenced by pending laparotomy with resection ileoanal J pouch, now NPO, cont on TPN. CURRENT DIET:NPO PO DIET RECOMMENDATIONS: DIET PER MD PARENTERAL NUTRITION RECOMMENDATIONS: D/AA Rate: 70 IL Rate: 10 Total Rate: 80 Volume: 1920 % Dextrose: 16 % AA: 5.0 Energy (kcals/kg): 1730 Protein (g/kg protein): 84 Nonprotein KCALS: 1394 GIR (mg CHO/kg/min): 3.17 % Fat KCALS: 27.7 NCP: N Ratio: 103.7 TPN Comment: - D16% AA 5.0% @ 70ml/hr + IL 20% @ 10ml/hr -> all 3:1, total of 80ml/hr - Maintain per MD - TPN @ goal provides 100% est kcal/prot needs 29kcal/1.42g prot per kg ADDITIONAL RECOMMENDATIONS: * Standing wt as able for accurate CBW * Monitor lytes, replete as needed * Monitor LFTs, BGs closely, need for TPN formulary change . .
[2019-12-29] MEDS ORDERED: Glycopyrrolate 0.2mg/ml 1ml Vial ONE (15:53)
[2019-12-29] MEDS ORDERED: Neostigmine 1mg/ml 10ml Inj ONE (15:53)
[2019-12-29] MEDS: DAPTOmycin 350 MG in NS 50 ML IV SCH (16:00)
--- NOTE | 2019-12-29 16:16 | NUR ---
CASE MANAGEMENT:REVIEW 12/29/19 SI;BLEEDING FROM ILEANAL J POUCH . POUCHITIS. BLE CELLULITIS. 98.6 108 18 115/62 97% ON RA ALB 2.6 IS;IN SURG NOW ABDOMINOPERINEAL PROCTECTOMY; ILEOSTOMY AMIKACIN IV Q36 DAPTOMYCIN IV Q24 KCL IV @50ML/HR ATARAX PO Q6 PRN TPN IV Q24 SEROQUEL PO QHS BLOOD TRANSFUSION X1 3E MED SURG STATUS DCP;FROM HOME PLAN; START BLOOD TX X1 CONT TPN CONT IVF
--- NOTE | 2019-12-29 16:27 | Brief Operative Note ---
Immediate Post Operative Note Operative Note Pre-op Diagnosis: failed bleeding ileoanal J pouch, ileostomy with parastomal hernia, defunctionalized distal small bowel Procedure: resection defunctionalized small bowel and ileoanal J pouch, revision of ileostomy Post-op Diagnosis: same Post-op Diagnosis: same as pre-op Findings: consistent w/pre-op dx studies Surgeon: malika Additional Surgeons: raquel Anesthesiologist: porsha Anesthesia: general Specimen: yes - small bowel segments Complications: none Condition: stable Fluids: i unit PRBC Estimated Blood Loss: volume - 200cc Drains: AMIE Implant(s) used?: No Gio Mckeon MD Dec 29, 2019 16:27
[2019-12-29] MEDS ORDERED: HYDROMORPHONE IV ONE (16:29)
[2019-12-29] MEDS ORDERED: Naloxone 0.4mg/ml Inj IVP PRN ×2 (16:30→20:15)
[2019-12-29] MEDS ORDERED: PCA HYDROmorphone 1mg/ml 30 ML IV PRN ×2 (16:30→20:30)
[2019-12-29] MEDS ORDERED: Rate Change PCA 1 Each MISC PRN ×2 (16:30→20:30)
[2019-12-29] MEDS ORDERED: HYDROmorphone 1mg/ml Carpuject SUBQ PRN ×2 (16:30→20:30)
[2019-12-29] MEDS ORDERED: Amikacin 750 MG in NS 110 ML IV SCH (17:00)
[2019-12-29] MEDS ORDERED: PCA Education Pamphlet MISC ONE (18:00)
[2019-12-29] MEDS ORDERED: Tubing IV Secondary IV ONE (18:31)
--- NOTE | 2019-12-29 18:40 | NUR ---
NURSE NOTES: Patient received from [facility] REGISTERED DENTAL ASSISTANT RDA. Patient unstable at this time with RR at 8 and very shallow with minimal chest wall rising. O2 saturation in 70's on simple mask. Changed to non rebreather with minimal improvement. Patient unresponsive at this time with no reaction to painful stimuli. Pupils fixed at 4mm. TPN infusing though LT UA PICC. Caban draining well to gravity. Abdominal dressing dry and intact with minimal blood in both ileostomy and AMIE. Side rails upx2, bed low and locked.
--- NOTE | 2019-12-29 18:58 | NUR ---
NURSE NOTES: ABG taken first and patient placed on bipap.
[2019-12-29] MEDS ORDERED: PCA shift volume MISC SCH (19:00)
--- NOTE | 2019-12-29 19:10 | NUR ---
NURSE NOTES: Spoke with Dr. Mckeon and reported critical ABG results. Call transferred to ER for intubation.
--- NOTE | 2019-12-29 19:20 | NUR ---
NURSE NOTES: Patient intubated by Dr. Nixon. Maureen 7.0 with 22cm at the lip line. BL lung souds present with BL chest wall rising. Order received for ventilator settings AC 16 500mL 100% P5. Will order CXR and ABG. VSS with O2 sat 97%.
--- NOTE | 2019-12-29 19:30 | NUR ---
NURSE NOTES: Received pt unresponsive, not even to pain stimuli , [id number] pinpoint resp very shallow, blood gas was obtained, appeared acidotic, ER mD was here Dr Nixon intubating pt with size 7.0 ETT taped at 23cm Rt lip corner.. Pt on SR bp 124/69. afebrile, abdominal drsg dry and intact. Ileostomy to drain wiyh very minimal bloody drainage, (RT lower abdominal site. AMIE to self suctioned with moderate amt of bloody drainage. pls see I and O. Caban to gravity with yellowish urine approximately 60-70ml/hr. Changed bag with urine meter for accurate measurement. Neuro check frequently done and to notify dr Mckeon for any changes, will continue to monitor.
--- NOTE | 2019-12-29 19:30 | NUR ---
NURSE HAND-OFF REPORT: Latest Vital Signs: Temperature 97.2 , Pulse 98 , B/P 177 /87 , Respiratory Rate 16 , O2 SAT 94 , Simple Mask, O2 Flow Rate 8 . Vital Sign Comment: Guarded EKG Rhythm: Sinus Tachycardia Rhythm change?: MD Notified?: - MD Response: Latest Jimenez Fall Score: 35 Fall Risk: Medium Risk Safety Measures: Call light Within Reach, Bed Alarm Zone 1, Side Rails Side Rails x2, Bed position Low and Locked. Fall Precautions: Yellow Socks Yellow Gown Door Sign Patient Fall Education Report given to Dariela KAYE. Plan of care endorsed. Aware that patient was just intubated and has pending cxr and abg in one hour.
--- NOTE | 2019-12-29 19:30 | NUR ---
Pt.intubated secondary to respiratory failure. Pt intubated with a size 7.0 ETT secured at the 22cm lip line. Equal breath sounds through out, positive capnography color change and symmetrical chest rise. ABG and CXR pending at this rocío. All alarms set and checked. Ambu bag at the bedside.
--- NOTE | 2019-12-29 19:34 | Emergency Room Report ---
History of Present Illness General Chief Complaint: General Complaint Source: Patient, Medical Record Present Illness Allergies: Coded Allergies: AMPICILLIN (Verified Allergy, Unknown, 12/17/19) TETRACYCLINE (Verified Allergy, Unknown, 12/17/19) COVID-19 Screening Contact w/high risk pt: No Experienced COVID-19 symptoms?: No COVID-19 Testing performed AUTO DAMAGE TRAINEE: No COVID-19 Screening: Negative COVID-19 Nursing Documentation-PMH Past Medical History: No History, Except For Hx Gastrointestinal Problems: Yes History Of Psychiatric Problem: Yes - depression Physical Exam Vital Signs Date Time Temp Pulse Resp B/P (MAP) Pulse Ox O2 Delivery O2 Flow Rate FiO2 12/25/19 08:00 97.5 103 17 124/73 (90) 100 12/25/19 09:00 Room Air 12/29/19 16:30 6 Procedures Intubation Intubation : Consent: Emergent Time of Intubation: 19:05 Intubation Method: orotracheal Tube Size (cm): 7.0 Medications: Other - patient obtunded and nonresponsive Breath Sounds after Intubation: equal Intubation Complications: no complications Post Intubation Xray: Yes Attempts: One Patient Tolerated: Well Complications: None Progress Contacted to evaluate patient for emergent intubation. Patient was noted to be extremely obtunded and acidotic postoperatively. Patient had been on BiPAP but had continued CO2 retention. Patient was intubated without medications with 7- 0 ET tube with a MAC 3 blade direct laryngoscopy x1. ET tube was secured to 22 cm at the lip. Patient tolerated this well without any complications. Medical Decision Making Diagnostic Impression: Primary Impression: Abdominal pain Additional Impressions: Leg edema, left Colostomy and enterostomy complications Ulcerative colitis Last Vital Signs Date Time Temp Pulse Resp B/P (MAP) Pulse Ox O2 Delivery O2 Flow Rate FiO2 12/29/19 18:20 97.2 101 14 177/87 94 Simple Mask 8 Disposition: ADMITTED INPATIENT Condition: Stable Referrals: NOT CHOSEN IPA/,REFERRING (PCP) Chico Nixon MD Dec 29, 2019 19:34
--- NOTE | 2019-12-29 20:06 | Diagnostic Imaging Report ---
EXAM: XR Chest, 1 View CLINICAL HISTORY: TUBE PLCMT TECHNIQUE: Frontal view of the chest. COMPARISON: Chest x-ray 12/17/2019 FINDINGS: Lungs: Retrocardiac atelectasis versus infiltrate. No consolidation or interstitial edema. Pleural space: Trace left pleural effusion. Heart: Unremarkable. No cardiomegaly. Bones/joints: Unremarkable. Tubes, lines and devices: Endotracheal tube terminates 3 cm above the kyung. Left upper extremity PICC line terminates within the SVC. IMPRESSION: 1. Endotracheal tube terminates 3 cm above the kyung. 2. Left upper extremity PICC line terminates within the SVC. 3. Retrocardiac atelectasis versus infiltrate. 4. Trace left pleural effusion.
[2019-12-29] MEDS ORDERED: Amikacin Rx to dose MISC PRN (20:30)
[2019-12-29] MEDS ORDERED: Dextrose 10% 1,000 ML IV PRN (20:30)
[2019-12-29] MEDS ORDERED: LORazepam 1mg tab ORAL PRN (20:45)
[2019-12-29] MEDS ORDERED: Fat Emulsion Iv 20% 240 ML in Tpn 1,680 ML IV SCH (20:45)
[2019-12-29] MEDS: QUEtiapine 200mg tab ORAL SCH (21:00)
[2019-12-29] MEDS: Dyna-Hex 2% Top Sol 2oz TOPIC SCH (21:17)
--- NOTE | 2019-12-29 21:30 | NUR ---
NURSE NOTES: pt start waking up and getting restless. Explained what had happened, re orient to time place person and event, mouth words and nod for understanding.
--- NOTE | 2019-12-29 22:19 | NUR ---
NURSE NOTES: Called dR daly and aware md that pt is waking up and mouthing words for pain meds, and that pt cant use FILING CLERK meds at this point coz pt is orally intubated, currently pt is SR Bp 129/76 afebrile, awaiting for md to call back.
--- NOTE | 2019-12-29 23:12 | NUR ---
NURSE NOTES: FI02 down to 50%, Dilauded 1mg subcut RT arm was given due to pain FLACC 9
[2019-12-30] VITALS (32 sets, daily range): BP systolic 87–140; BP diastolic 55–97
--- NOTE | 2019-12-30 | NUR ---
NURSE NOTES: Dozing on and off after Dilauded 1mg subcut given.
--- NOTE | 2019-12-30 02:00 | NUR ---
NURSE NOTES: Pt very awake and alert , communicate through writing. no resp distress noted. will continue to monitor.
[2019-12-30] MEDS: HYDROmorphone 1mg/ml Carpuject SUBQ PRN ×4 (03:38→13:05)
--- NOTE | 2019-12-30 03:39 | NUR ---
NURSE NOTES: Dilauded 1mg subcut was given due to FLACC7 abdominal surgery site.
--- NOTE | 2019-12-30 04:30 | NUR ---
NURSE NOTES: Dozing on and off after dilauded 1 mg subcut.
[2019-12-30] MEDS: NovoLOG Insulin Flexpen SUBQ SCH ×4 (06:00→17:38)
--- NOTE | 2019-12-30 06:00 | NUR ---
NURSE NOTES: Accucheck 110mg/dl no coverage.
[2019-12-30] MEDS: PCA shift volume MISC SCH ×2 (07:00→19:17)
--- NOTE | 2019-12-30 07:06 | 48 Hour Post Anesthesia Eval ---
Post Anesthesia Evaluation Procedure: Abdominoperineal Proctectomy, Ileostomy Date of Evaluation: Dec 30, 2019 Time of Evaluation: 07:14 Blood Pressure Systolic: 121 0: 63 Pulse Rate: 99 Respiratory Rate: 16 Temperature (Fahrenheit): 97.6 O2 Sat by Pulse Oximetry: 100 Airway: patent Nausea: No Vomiting: No Pain Intensity: 3 Hydration Status: adequate Cardiopulmonary Status: Stable Mental Status/LOC: patient returned to baseline Follow-up Care/Observations: Extubated Pt , Intubated last PM For obtundation. Now Awake. Post-Anesthesia Complications: 0 Follow-up care needed: N/A Johnnie Franks MD Dec 30, 2019 07:06
--- NOTE | 2019-12-30 07:12 | NUR ---
NURSE NOTES: Dr Cole was here and extubated pt , placed on 02 at 2L/Nc 02 sat 97%.vss.
--- NOTE | 2019-12-30 07:12 | NUR ---
RESPIRATORY NOTE: Pt. extubated by Dr. Cole @ 8384 and placed on NC 2L. Spo2 97%. Pt awake and alert and talking.
--- NOTE | 2019-12-30 07:15 | NUR ---
NURSE NOTES: Patient received from Dariela KAYE. Patient extubated [id number] by Dr. Franks. VSS with O2 in high 90's. RR even and unlabored on RA. Breath sounds clear but diminished. Cardiac sounds benign. Bowel is hypoactive over ileostomy. Abdominal dressing dry and intact with Ilestomy output scant sanguinous fluid. AMIE also intact to suction with 0 output at this time. Caban draining well to gravity. LT UA PICC line dressing dry and intact with TPN infusing at 80mL/hr and IV fluids infusing at 50mL/hr. Complaining of abdominal pain at this time. Will medicate now. Side rails upx2, call light within reach, bed low and locked. Will continue to monitor.
--- NOTE | 2019-12-30 07:30 | NUR ---
NURSE NOTES: Patient periodically desating to 70-80's. Placed on 2L NC. Now saturating 95%. Addendum: 12/30/19 at 1116 by JOSE RANDHAWA RN Patient was complaining of nausea at this time. Joshua johns.
--- NOTE | 2019-12-30 07:54 | NUR ---
NURSE HAND-OFF REPORT: Latest Vital Signs: Temperature 97.6 , Pulse 99 , B/P 121 /63 , Respiratory Rate 16 , O2 SAT 100 , Mechanical Ventilator, O2 Flow Rate 8 . Vital Sign Comment: EKG Rhythm: Sinus Rhythm Rhythm change?: MD Notified?: - MD Response: Latest Jimenez Fall Score: 35 Fall Risk: Medium Risk Safety Measures: Call light Within Reach, Bed Alarm Zone 1, Side Rails Side Rails x2, Bed position Low and Locked. Fall Precautions: Yellow Socks Yellow Gown Door Sign Patient Fall Education Report given to .
--- NOTE | 2019-12-30 08:01 | Operative Note - Dictated ---
DATE OF OPERATION: 12/29/2019 SURGEON: Gio Mckeon MD ADDITIONAL SURGEON: Terrance Marshall MD ANESTHESIOLOGIST: Johnnie Franks MD TYPE OF ANESTHESIA: General endotracheal. PREOPERATIVE DIAGNOSES: 1. Failed ileoanal J-pouch with persistent pain, bleeding, and discharge with diverting Narcisa ileostomy since 2002. 2. History of ulcerative colitis. 3. Status post multiple abdominal operations. 3.1. Total colectomy with ileoanal J-pouch in 1991. 3.2. Creation of Narcisa ileostomy leaving distal small bowel loops attached to J-pouch in 2002. 3.3. Laparotomy x2 for small bowel obstruction in 2012. 3.4. Open cholecystectomy in 2013. 3.5. Repair of parastomal hernia with Strattice mesh and findings of severe adhesions in November 2017 (all of these operations were done elsewhere by other surgeons). POSTOPERATIVE DIAGNOSES: 1. Failed ileoanal J-pouch with persistent pain, bleeding, and discharge with diverting Narcisa ileostomy since 2002. 2. History of ulcerative colitis. 3. Status post multiple abdominal operations. 3.1. Total colectomy with ileoanal J-pouch in 1991. 3.2. Creation of Narcisa ileostomy leaving distal small bowel loops attached to J-pouch in 2002. 3.3. Laparotomy x2 for small bowel obstruction in 2012. 3.4. Open cholecystectomy 2013. 3.5. Repair of parastomal hernia with Strattice mesh and findings of severe adhesions November 2017 (all of these operations were done elsewhere by other surgeons). OPERATION PERFORMED: Laparotomy with resection of defunctionalized distal small bowel and most of the ileoanal J pouch with revision of Narcisa ileostomy with findings of severe diffuse adhesions. DESCRIPTION OF PROCEDURE: The patient was taken to the operating room and under general anesthesia with sequential compression device stockings in place in lithotomy position and a Caban catheter in place and having received preoperative intravenous antibiotics and subcutaneous heparin, she was prepped and draped in usual fashion. A midline incision was reopened. In the epigastric portion, it is very wide and the skin was attached to underlying mesh. With a tedious very prolonged dissection, bowel loops were mobilized and the incision opened throughout its length. One enterotomy near the stoma was closed with continuous 3-0 chromic locking suture followed by 3-0 silk Lembert sutures. There was no entrapped small bowel adjacent to the hernia. There was a mild parastomal hernia. The patient's abdominal wall was very rigid from the prior operations and the mesh with very marked scarring. I placed a metal Ohara suction through the stenotic anus into the J-pouch, but even with the abdomen open and bowel loops mobilized out of the pelvis, it could not be palpated against the sacral promontory. There was a moderate amount of distal small bowel loops. Basically, the patient had an end/loop ileostomy. The small bowel was taken down from the ileostomy segment itself and traced down as far as possible to the J-pouch well below the sacral promontory, which was divided and oversewn distally. I did not perform a perineal proctectomy because the patient had a severe lower extremity buttock and perineal rash from idiosyncratic drug reaction during her hospital stay. Any short-segment that remains if symptomatic could be treated endoscopically with a perineal proctectomy without requiring additional laparotomy. The defunctionalized small bowel was severely constricted and affected by adhesions that could not be utilized to reattach to the patient's ileostomy to restore bowel length, which was the original intention. The ileostomy as mentioned had been taken down. Now, a fresh segment of bowel was brought up after excising the old stoma. It was matured in Narcisa fashion with interrupted 3-0 chromic sutures producing a very good stomal protrusion nicely everted. The patient's adhesions were so severe. There was little likelihood of any bowel getting entrapped in the slightly widened fascial orifice. Placing additional mesh in my opinion was contraindicated at this time. The field was copiously irrigated and hemostasis secured carefully. The bladder and ureters had been avoided. Dissection had been accomplished with the use of the Thunderbeat vessel sealing electrosurgical device. The stomach and liver appeared normal. The small bowel loops appeared normal without evidence of Crohn disease. She is status post cholecystectomy. The uterus was severely scarred and could only be palpated . After ascertaining the hemostasis was secured and after mobilizing subcutaneous flap up to the left of the incision to release tension and do a partial anterior rectus release. Primary closure was performed in one layer with continuous #1 looped PDS. Antibiotic irrigation utilized and skin closed with dangelo. An ileostomy appliance was cut to fit and applied over the stoma in the right side of the abdomen and dry sterile dressings applied. Prior to closure, I placed a large flat Fernando-Jarrett drain positioned in the pelvis and sutured to the skin with 2-0 nylon skin suture. Estimated blood loss at least 200 mL. Patient was anemic and depleted preoperatively. She received 1 unit packed red blood cells during surgery. She did tolerate the operation well and went to the recovery room in stable condition. Urine was clear at the end of the procedure. Gio Mckeon M.D. DR: TOBIAS JOB#: [id number] CC:
[2019-12-30 08:34] LABS: ALBUMIN/GLOBULIN RATIO 0.5 (1.0-2.7); BILIRUBIN,TOTAL 0.3 MG/DL (0.2-1.0); CALCIUM 8.3 MG/DL (8.5-10.1); PHOSPHORUS 4.2 MG/DL (2.5-4.9); POTASSIUM 4.4 MMOL/L (3.5-5.1)
[2019-12-30] MEDS: Pramipexole 0.5mg tab ORAL SCH ×2 (09:04→17:38)
--- NOTE | 2019-12-30 09:10 | NUR ---
NURSE NOTES: Patient complaining of headache at this time. Fiocept given.
--- NOTE | 2019-12-30 10:15 | NUR ---
NURSE NOTES: Patient complaining of 10/10 pain. Dilaudid 1mg given.
[2019-12-30 10:57] LABS: HEMATOCRIT 35.4 % (37.0-47.0); HEMOGLOBIN 11.8 G/DL (12.0-16.0); MEAN CORPUSCULAR VOLUME 92 FL (80-99); PLATELET COUNT 266 K/UL (150-450); RED BLOOD COUNT 3.85 M/UL (4.20-5.40); RED CELL DISTRIBUTION WIDTH 16.2 % (11.6-14.8)
[2019-12-30 11:02] LABS: WHITE BLOOD COUNT 36.2 K/UL (4.8-10.8)
--- NOTE | 2019-12-30 11:14 | NUR ---
Social Work This SW spoke with patients sister, Hamida ([phone]) who explains she assists as needed with finances and decision making, while patient over remains her own decision maker (alert/oriented x4). Patient lives alone, was independent prior and has a walker. Patient sister explains she will hire a canceling machine operator as needed. Pending progress at this time to determine whether patient will require home care P.T upon discharge. No other substance abuse or mental health concerns, while patient and family are requesting full code, full treatment. Sw to follow further, as needed.
--- NOTE | 2019-12-30 12:00 | NUR ---
NURSE NOTES: Patient restless complaining that she is hot but patient within normal limits. Will reassess.
--- NOTE | 2019-12-30 13:00 | Consultation ---
DATE OF CONSULTATION: 12/30/2019 PULMONARY CONSULTATION CONSULTING PHYSICIAN: Emilio Vega MD. HISTORY OF PRESENT ILLNESS: This is a 59-year-old female, who underwent repair of parastomal hernia/laparotomy with resection of defunctionalized distal small bowel by Dr. Gio Mckeon yesterday. The patient was recovered, however, after extubation was noted to be doing poorly from a respiratory standpoint. She was then brought up to ICU overnight and then re-intubated by the ER physician. This morning, patient was reassessed by Dr. Franks from Anesthesiology and has been extubated. Currently, she is awake and responsive and denies any pain. PAST MEDICAL HISTORY: Notable for anxiety, GERD, restless legs syndrome, ulcerative colitis. PREVIOUS SURGICAL HISTORY: Multiple listed by Dr. Mckeon including diverted ileoanal J-pouch, total colectomy, permanent ileostomy. ALLERGIES: Penicillin and tetracycline. CURRENT MEDICATIONS: Include amikacin, daptomycin, Benadryl, TPN, Dilaudid, Prevacid. REVIEW OF SYSTEMS: Denies any headaches, hematemesis, melena, hematochezia, night sweats, or weight loss. PHYSICAL EXAMINATION: VITAL SIGNS: Blood pressure of , heart rate 68, respirations 20, O2 saturation 99% on 2L of oxygen. GENERAL: Reveals a 59-year-old female. HEENT: Unremarkable. LUNGS: Clear breath sounds bilaterally. ABDOMEN: Soft, distended. EXTREMITIES: There is no edema. LABORATORY DATA: Lab testing shows hemoglobin 9.2. Chemistries show creatinine of 1. ABG, pH 7.32, pCO2 48, and pO2 of 322. X-ray chest was obtained yesterday, which shows a small left effusion. IMPRESSION: 1. Status post re-intubation. 2. Status post extubation today. 3. Status post laparotomy. 4. Ulcerative colitis. 5. GERD. DISCUSSION: Postoperative care per Dr. Mckeon. Testing TPN. The patient has been extubated. We will order oxygen and pulmonary hygiene. We will follow carefully. Pain control. DVT prophylaxis. GI prophylaxis. Transferred to ICU. Emilio Vega M.D. DR: JORDANA JOB#: [id number] CC:
--- NOTE | 2019-12-30 13:26 | General Progress Note ---
Progress Note Progress Note AVSS Was obtunded in PACU so transferred to ICU and was intubated by ERMD. Extubated this AM by anesthesiologist Awake and alert, pain controlled with dilaudid senior payroll administrator/SQ Abdomen soft, ileostomy pink 12 hours overnight: urine 810 Ileostomy 20 AMIE drain 100cc serosang WBC 36,200 Hgb 11.8 (transfused 2 units yesterday) BUN up 30 Cr 1.0 albumin 2.0 Imp: Post-op respiratory insufficiency, resolved Ileus Plan: continue npo, TPN, dilaudid senior payroll administrator demand dosing only Pulm per Dr. Vega maintain in ICU overnight Gio Mckeon MD Dec 30, 2019 13:26
[2019-12-30] MEDS ORDERED: HYDROmorphone 1mg/ml Carpuject SUBQ PRN (13:30)
[2019-12-30] MEDS: PCA HYDROmorphone 1mg/ml 30 ML IV PRN (14:07)
--- NOTE | 2019-12-30 14:15 | NUR ---
NURSE NOTES: DIRECTOR BIOSTATISTICS started at 28mLs. Patient educated on pushing for demand dose. VSS at this time. Complaining of 10/10 pain.
--- NOTE | 2019-12-30 14:39 | Infectious Diseases Prog Note ---
Assessment/Plan Assessment/Plan ASSESSMENT AND PLAN: 1. e.coli uti, morganella uti, left leg cellulitis, ? drug reaction/atypical drug rash, elevated eosinophils, leukocytosis, low grade fevers better s/p surgery on 12/29/19 - significant leukocytosis, ? sepsis vs expected post-surgical leukocytosis fungemia risk, TPN atelectasis > pna (aspiration/hcap) preliminary abdominal fluid culture with gram negatives - amikacin and daptomycin, flagyl, add micafungin for fungal coverage - surveillance cultures - monitor labs, leukocytosis, chest x-ray - icu care, mgt per Dr. Mckeon and Dr. Vega 2. skin care per protocol - ? fungal component, on clotrimazole cream 3. 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 4. History of Narcisa ileostomy. 5. History of ulcerative colitis. 6. History of multiple abdominal surgeries. 7. History of cholecystectomy. 8. History of peristomal hernia and mesh. 9. History of colectomy. 10. Continue treatment per Dr. Mckeon and consultants. 11. Allergies to ampicillin, tetracycline. She gets hives with ampicillin. 12. Social history is negative. 13. Family history is noncontributory. 14. MAR is noted. 15. Case was discussed with RN. 16. Case was discussed with Dr. Mckeon. 17. Case was discussed with the patient. Subjective Constitutional: Reports: fatigue, other - was intubated, now extubated, no pressors, s/p surgery yesterday ; Denies: fever HEENT: Denies: congestion Respiratory: Denies: shortness of breath Cardiovascular: Reports: other - no pressors ; Denies: chest pain Gastrointestinal/Abdominal: Denies: nausea, vomiting Neurologic: Denies: headache Psychiatric: Denies: depression Skin: Denies: rash Hematologic: Denies: bleeding Musculoskeletal: Reports: pain - controlled Allergies: Coded Allergies: AMPICILLIN (Verified Allergy, Unknown, 12/17/19) TETRACYCLINE (Verified Allergy, Unknown, 12/17/19) Objective Last 24 Hour Vital Signs Date Time Temp Pulse Resp B/P (MAP) Pulse Ox O2 Delivery O2 Flow Rate FiO2 12/30/19 12:00 Nasal Cannula 2.0 12/30/19 10:37 98.0 12/30/19 09:34 98.0 12/30/19 08:00 97.5 93 12 117/63 (81) 100 12/30/19 08:00 Nasal Cannula 2.0 12/30/19 07:16 99 16 100 12/30/19 05:00 50 12/30/19 05:00 92 15 103/64 (77) 100 12/30/19 04:30 93 16 118/70 (86) 100 12/30/19 04:00 100 12/30/19 04:00 98.4 92 18 120/69 (86) 100 12/30/19 03:57 92 18 40 12/30/19 03:30 92 18 110/55 (73) 100 12/30/19 03:00 96 17 108/63 (78) 100 12/30/19 02:30 94 16 112/64 (80) 100 12/30/19 02:00 95 16 107/61 (76) 100 12/30/19 01:30 95 16 106/62 (77) 100 12/30/19 01:00 99 20 87/73 (78) 97 12/30/19 00:45 94 16 105/66 (79) 100 12/30/19 00:30 94 16 109/65 (80) 100 12/30/19 00:00 98.2 93 16 109/66 (80) 100 12/30/19 00:00 100 12/29/19 23:30 98.2 94 16 118/71 (87) 100 12/29/19 23:11 92 16 50 12/29/19 23:00 91 16 126/78 (94) 100 12/29/19 22:30 90 17 129/79 (96) 100 12/29/19 22:00 89 17 128/77 (94) 100 12/29/19 21:45 92 20 128/78 (95) 100 12/29/19 21:30 92 17 128/77 (94) 100 12/29/19 21:15 92 17 126/75 (92) 100 12/29/19 21:00 97 21 126/76 (93) 100 12/29/19 21:00 Mechanical Ventilator 12/29/19 20:45 99 20 131/104 (113) 100 12/29/19 20:30 102 20 138/82 (100) 100 12/29/19 20:15 101 32 124/69 (87) 100 12/29/19 20:00 98.0 96 19 115/64 (81) 100 12/29/19 20:00 100 12/29/19 19:45 101 20 125/66 (85) 100 12/29/19 19:30 102 24 117/63 (81) 98 12/29/19 19:30 98 16 100 12/29/19 19:15 96 16 100 Mechanical Ventilator 12/29/19 18:20 97.2 101 14 177/87 94 Simple Mask 8 12/29/19 18:10 99 16 169/85 91 Simple Mask 8 12/29/19 18:00 100 13 170/86 92 Simple Mask 8 12/29/19 16:45 108 15 147/93 94 Simple Mask 6 12/29/19 16:40 103 17 142/90 94 Simple Mask 6 12/29/19 16:35 102 16 97 12/29/19 16:30 102 15 144/91 94 Simple Mask 6 Height (Feet): 5 Height (Inches): 1.00 Weight (Pounds): 152 General Appearance: no acute distress HEENT: normocephalic, atraumatic, anicteric Respiratory/Chest: lungs clear, normal breath sounds, no respiratory distress, no accessory muscle use Cardiovascular: normal rate, regular rhythm, no gallop/murmur, no JVD Abdomen: normal bowel sounds, soft, non tender, no organomegaly, non distended Genitourinary: other - + zheng - urine clear Extremities: no cyanosis Skin: no rash Neurologic/Psychiatric: polishing pad mounter II-XII grossly normal, alert, responsive Lymphatic: no neck adenopathy Musculoskeletal: no effusion Chest x-ray - Procedure: XRAY Chest 1v Indication: Cough Technique: One view of the chest Comparison: none Findings: There is diffuse mild bilateral interstitial disease and central bronchial wall thickening. No focal airspace consolidation. No effusions. Normal heart size Impression: Acuity indeterminate mild interstitial disease. Correlate with clinical findings. No focal infiltrates CT abdomen and pelvis: Impression: Postsurgical changes, as described, including right lower quadrant simple ileostomy, prior total colectomy, and J-pouch. There is abundant anterior pelvic apparent defunctionalized small bowel which appears to be in continuity with and ileoanal J-pouch remnant. Most likely, this just represents old isolated small bowel, but the possibility of any of this representing either tumor or abscess is not completely excludable. Small parastomal hernia within the right lower quadrant ileostomy. This appears to be nonobstructive. Equivocal mild wall thickening of left upper quadrant jejunal loops. Enteritis is possible and correlation with clinical findings is recommended Age-indeterminate L2 vertebral body compression fracture deformity. Suspect old. Consider MRI if clinically relevant Prior cholecystectomy Inferior vena cava filter Findings discussed by phone Chest x-ray - 12/29/19 - FINDINGS: Lungs: Retrocardiac atelectasis versus infiltrate. No consolidation or interstitial edema. Pleural space: Trace left pleural effusion. Heart: Unremarkable. No cardiomegaly. Bones/joints: Unremarkable. Tubes, lines and devices: Endotracheal tube terminates 3 cm above the kyung. Left upper extremity PICC line terminates within the SVC. IMPRESSION: 1. Endotracheal tube terminates 3 cm above the kyung. 2. Left upper extremity PICC line terminates within the SVC. 3. Retrocardiac atelectasis versus infiltrate. 4. Trace left pleural effusion. Microbiology Date/Time Source Procedure Growth Status 12/29/19 14:00 Abdominal Fluid Gram Stain Pending Resulted 12/29/19 14:00 Aerobic Culture - Preliminary Gram Negative Bacillus 1 Resulted 12/29/19 14:00 Abdominal Fluid Anaerobic Culture - Preliminary NO GROWTH Resulted Laboratory Tests Test 12/29/19 17:10 12/29/19 19:13 12/29/19 21:51 12/30/19 00:02 POC Whole Blood Glucose Pending 126 MG/DL (74-106) H Arterial Blood pH 6.668 (7.350-7.450) 7.323 (7.350-7.450) Arterial Blood Partial Pressure CO2 Pending 48.6 mmHg (35.0-45.0) H Arterial Blood Partial Pressure O2 66.2 mmHg (75.0-100.0) L 322.0 mmHg (75.0-100.0) H Arterial Blood HCO3 Pending 24.6 mmol/L (22.0-26.0) Arterial Blood Oxygen Saturation 68.1 % (95-100) *L 99.4 % (95-100) Arterial Blood Base Excess Pending -1.8 (-2-2) Chan Test Positive Positive Test 12/30/19 07:45 12/30/19 10:25 Sodium Level 137 MMOL/L (136-145) Potassium Level 4.4 MMOL/L (3.5-5.1) Chloride Level 103 MMOL/L (98-107) Carbon Dioxide Level 28 MMOL/L (21-32) Anion Gap 6 mmol/L (5-15) Blood Urea Nitrogen 30 mg/dL (7-18) H Creatinine 1.0 MG/DL (0.55-1.30) Estimat Glomerular Filtration Rate 56.5 mL/min (>60) Glucose Level 109 MG/DL (74-106) H Calcium Level 8.3 MG/DL (8.5-10.1) L Phosphorus Level 4.2 MG/DL (2.5-4.9) Magnesium Level 2.2 MG/DL (1.8-2.4) Total Bilirubin 0.3 MG/DL (0.2-1.0) Aspartate Amino Transf (AST/SGOT) 29 U/L (15-37) Alanine Aminotransferase (ALT/SGPT) 29 U/L (12-78) Alkaline Phosphatase 130 U/L (46-116) H Total Protein 5.8 G/DL (6.4-8.2) L Albumin 2.0 G/DL (3.4-5.0) L Globulin 3.8 g/dL Albumin/Globulin Ratio 0.5 (1.0-2.7) L White Blood Count 36.2 K/UL (4.8-10.8) #*H Red Blood Count 3.85 M/UL (4.20-5.40) L Hemoglobin 11.8 G/DL (12.0-16.0) L Hematocrit 35.4 % (37.0-47.0) L Mean Corpuscular Volume 92 FL (80-99) Mean Corpuscular Hemoglobin 30.6 PG (27.0-31.0) Mean Corpuscular Hemoglobin Concent 33.3 G/DL (32.0-36.0) Red Cell Distribution Width 16.2 % (11.6-14.8) H Platelet Count 266 K/UL (150-450) Mean Platelet Volume 6.8 FL (6.5-10.1) Neutrophils (%) (Auto) % (45.0-75.0) Lymphocytes (%) (Auto) % (20.0-45.0) Monocytes (%) (Auto) % (1.0-10.0) Eosinophils (%) (Auto) % (0.0-3.0) Basophils (%) (Auto) % (0.0-2.0) Differential Total Cells Counted 100 Neutrophils % (Manual) 89 % (45-75) H Lymphocytes % (Manual) 4 % (20-45) L Monocytes % (Manual) 6 % (1-10) Eosinophils % (Manual) 0 % (0-3) Basophils % (Manual) 0 % (0-2) Band Neutrophils 1 % (0-8) Platelet Estimate Adequate Platelet Morphology Normal Hypochromasia 1+ Anisocytosis 1+ Current Medications Medications (Trade) Dose Ordered Sig/Margarette Route PRN Reason Start Time Stop Time Status Last Admin Dose Admin Acetaminophen/ Butalbital/ Caffeine (Fioricet) 1 tab Q6H PRN ORAL headache 12/29/19 20:30 01/18/20 20:29 12/30/19 09:04 Amikacin Protocol (Amikacin pharmacy to dose) 1 ea DAILY PRN MISC Per rx protocol 12/29/19 20:30 01/28/20 20:29 Amikacin Sulfate 750 mg/Sodium Chloride 113 ml @ 113 mls/hr Q36H IV 12/31/19 05:00 01/05/20 16:59 Chlorhexidine Gluconate (Patti-Hex 2%) 1 applic DAILY@1999 TOPIC 12/29/19 20:30 03/28/20 20:29 12/29/19 21:17 Clotrimazole (Lotrimin) 1 applic BID TOPIC 12/30/19 09:00 03/20/20 10:29 Daptomycin 350 mg/ Sodium Chloride 50 ml @ 100 mls/hr Q24H IV 12/30/19 16:00 01/04/20 15:59 Dextrose 1,000 ml @ 0 mls/hr Q24H PRN IV PN interrupted or unavailable 12/29/19 20:30 01/28/20 20:29 Dextrose (Dextrose 50%) 25 ml Q30M PRN IV Hypoglycemia 12/29/19 20:30 03/17/20 19:59 Dextrose (Dextrose 50%) 50 ml Q30M PRN IV Hypoglycemia 12/29/19 20:30 03/17/20 19:59 Diphenhydramine HCl (Benadryl) 25 mg Q6H PRN IVP Itching/Pruritis 12/29/19 20:30 12/31/19 20:29 Diphenhydramine HCl (Benadryl) 25 mg Q6H PRN ORAL Itching 12/29/19 20:30 01/19/20 20:29 Fat Emulsion Intravenous 240 ml/Amino Acids/ Electrolytes/ Dextrose 1,920 ml @ 80 mls/hr Q24H IV 12/29/19 20:45 12/30/19 19:59 12/29/19 21:36 Fat Emulsion Intravenous 240 ml/Amino Acids/ Electrolytes/ Dextrose 1,920 ml @ 80 mls/hr Q24H IV 12/30/19 20:00 01/27/20 19:59 Hydromorphone HCl 30 ml @ 0 mls/hr Q24H PRN IV For Pain 12/30/19 13:30 01/01/20 13:29 12/30/19 14:07 Hydromorphone HCl (Dilaudid) 1 mg Q3H PRN SUBQ Severe Breakthru Pain (>7) 12/30/19 13:30 01/06/20 13:29 Hydroxyzine HCl (Atarax) 50 mg Q6H PRN ORAL Itching 12/29/19 20:30 01/28/20 20:29 Insulin Aspart (NovoLOG) Q6HR SUBQ 12/30/19 00:00 03/18/20 00:00 Lansoprazole (Prevacid) 30 mg DAILY ORAL 12/30/19 09:00 01/17/20 08:59 12/30/19 09:04 Lorazepam (Ativan) 1 mg Q6H PRN ORAL Restlessness 12/29/19 20:45 12/30/19 14:44 Metronidazole 100 ml @ 100 mls/hr Q8HR IVPB 12/29/19 22:00 01/04/20 21:59 12/30/19 14:11 Micafungin Sodium 100 mg/Sodium Chloride 110 ml @ 110 mls/hr Q24H IVPB 12/30/19 14:30 01/06/20 14:29 UNV Miscellaneous Medication (DESIGN QUALITY ENGINEER Rate Change) 1 ea DAILY PRN MISC rate change 12/29/19 20:30 12/31/19 20:29 Miscellaneous Medication (DESIGN QUALITY ENGINEER shift volume) 1 ea Q12HR@0700,1900 MISC 12/30/19 07:00 01/01/20 06:59 Naloxone HCl (Narcan) 0.1 mg Q1M PRN IVP RR<10/min OR SBP<90 mmHg 12/29/19 20:15 12/31/19 20:14 Ondansetron HCl (Zofran) 4 mg Q4H PRN IVP Nausea & Vomiting 12/29/19 20:30 12/31/19 20:29 12/30/19 13:04 Phytonadione (Vitamin K) 10 mg ONCE A WEEK SUBQ 01/01/20 09:00 03/24/20 08:59 Potassium Chloride/Sodium Chloride 1,000 ml @ 50 mls/hr Q20H IV 12/29/19 20:30 01/22/20 20:29 12/29/19 21:33 Pramipexole (Mirapex) 1 mg TWICE A DAY ORAL 12/30/19 09:00 01/16/20 17:59 12/30/19 09:04 Quetiapine Fumarate (SEROqueL) 200 mg BEDTIME ORAL 12/29/19 21:00 01/31/20 20:59 Temazepam (RestoriL) 7.5 mg HSPRN PRN ORAL Insomnia 12/29/19 21:00 01/01/20 20:59 Kevan Burgess MD Dec 30, 2019 14:39
[2019-12-30] MEDS ORDERED: 1/2 NS 1000ml IV ONE (15:43)
[2019-12-30] MEDS: NS w/KCl 40mEq 1,000 ML IV SCH (15:43)
[2019-12-30] MEDS ORDERED: NS 275ml ONE (15:43)
[2019-12-30] MEDS ORDERED: DAPTOmycin 350 MG in NS 50 ML IV SCH (16:00)
--- NOTE | 2019-12-30 16:00 | NUR ---
NURSE NOTES: Patient stable at this time.
[2019-12-30] MEDS: Micafungin 100 MG in NS 110 ML IVPB SCH (17:38)
--- NOTE | 2019-12-30 18:00 | NUR ---
NURSE NOTES: Ileostomy appliance changed. Patient given bed bath. Does not want any pillows and patient stating she will continue to reposition her self. SCDs placed back on. Medications given. Zofran given.
--- NOTE | 2019-12-30 19:30 | NUR ---
NURSE NOTES: received pt awake and alert, AOx4 Seals x4,abdominal drsg dry and intact, Rt lower abdomen ileostomy to drain with bloody drainage minimalin amt. AMIE to left abdominal to self suctioned with serosanguinous drainage minimal in amt. pls see i and O. SR on the monitor, bp stable afebrile, on cont co2 monitor reading as well within acceptable range, Kept NPO except with PO meds with small sips of water and small ice chips as needed. TPN at 80ml/hr and NS + 40meq KCL as well as Dilauded PET CARE TECHNICIAN infusing we;; per KELLEE PICC line. Site with drsg dry and intact zheng to gravity with moderate amt of yellowish urine Monitor I and o. Monitor lytes, will continue to monitor.
--- NOTE | 2019-12-30 19:31 | NUR ---
NURSE HAND-OFF REPORT: Latest Vital Signs: Temperature 98.9 , Pulse 113 , B/P 117 /75 , Respiratory Rate 27 , O2 SAT 98 , Nasal Cannula, O2 Flow Rate 2.0 . Vital Sign Comment: STABLE EKG Rhythm: Sinus Rhythm Rhythm change?: MD Notified?: - MD Response: Latest Jimenez Fall Score: 35 Fall Risk: Medium Risk Safety Measures: Call light Within Reach, Bed Alarm Zone 1, Side Rails Side Rails x2, Bed position Low and Locked. Fall Precautions: Yellow Socks Yellow Gown Door Sign Patient Fall Education Report given to Dariela KAYE. Patient stable. Plan of care endorsed. PIERCING ARTIST syringe now 23.0mLs.
[2019-12-30] MEDS: Fat Emulsion Iv 20% 240 ML in Tpn 1,680 ML IV SCH (20:10)
[2019-12-30] MEDS: Dyna-Hex 2% Top Sol 2oz TOPIC SCH (20:10)
[2019-12-30] MEDS: QUEtiapine 200mg tab ORAL SCH ×2 (21:00→21:51)
--- NOTE | 2019-12-30 21:30 | NUR ---
NURSE NOTES: Pt been needy and demanding, explained every single ng procedure to decrease anxiety feelings.
--- NOTE | 2019-12-30 22:11 | NUR ---
NURSE NOTES: Benadryl 25mg IVP and Zofran 4mg ivp was given due to pts itchiness ,nausea and vomiting.
[2019-12-31] VITALS (26 sets, daily range): BP systolic 96–143; BP diastolic 49–98
--- NOTE | 2019-12-31 | NUR ---
NURSE NOTES: Frequently asking for ice chips and turned nauseus most of the time adviced to slow down with ice chips, Zofran 4mg iVP was given for being naueaus.
[2019-12-31] MEDS: DiphenhydrAMINE 50mg/ml Inj IVP PRN ×2 (00:11→19:31)
--- NOTE | 2019-12-31 02:00 | NUR ---
NURSE NOTES: Dozing on and off with vss,
--- NOTE | 2019-12-31 02:54 | NUR ---
NURSE NOTES: Awake at this time using under seal operator dilauded IV for pain.
--- NOTE | 2019-12-31 04:30 | NUR ---
NURSE NOTES: Complete bed bath with bed changed was done
[2019-12-31] MEDS: HydrOXYzine 50mg tab ORAL PRN ×3 (05:07→22:30)
[2019-12-31] MEDS: Amikacin 750 MG in NS 110 ML IV SCH (05:07)
[2019-12-31 05:40] LABS: HEMATOCRIT 34.7 % (37.0-47.0); HEMOGLOBIN 11.2 G/DL (12.0-16.0); MEAN CORPUSCULAR VOLUME 94 FL (80-99); PLATELET COUNT 261 K/UL (150-450)
[2019-12-31] MEDS: NovoLOG Insulin Flexpen SUBQ SCH ×4 (05:53→17:16)
--- NOTE | 2019-12-31 06:00 | NUR ---
NURSE NOTES: sleeping well at this time with vss
[2019-12-31 06:10] LABS: ALBUMIN 2.2 G/DL (3.4-5.0); ALBUMIN/GLOBULIN RATIO 0.5 (1.0-2.7); BILIRUBIN,TOTAL 0.3 MG/DL (0.2-1.0); CALCIUM 8.3 MG/DL (8.5-10.1); CREATININE 1.1 MG/DL (0.55-1.30); POTASSIUM 3.9 MMOL/L (3.5-5.1)
[2019-12-31 06:37] LABS: CREATINE KINASE 470 U/L (26-308)
--- NOTE | 2019-12-31 07:00 | NUR ---
NURSE NOTES: tolerating instructor technical training dilauded, awake but comfortable.
[2019-12-31] MEDS: PCA shift volume MISC SCH ×2 (07:17→19:12)
--- NOTE | 2019-12-31 07:50 | NUR ---
NURSE NOTES: PRN Benadryl and Zofran given for itching and nausea. Will continue to monitor.
--- NOTE | 2019-12-31 07:51 | NUR ---
NURSE NOTES: Report received from VARGAS Lyle. Pt is awake, resting in bed. A+Ox4. Patient is complaining of itching and nausea. Will give PRN medication for those. Temp 99.2. ST on conveyor monitor with HR 110's. On N/C 2L. O2 sat 97-98%. On CO2 monitor 36. Kept NPO as per order. Right ileostomy draining greenish BM and left AMIE draining serosang liquid. ABD surgical dressing dry and intact. Caban in place draining yellow urine to gravity. KELLEE PICC line patent and asymptomatic. TPN is running at 80cc/hr. NS i s running with 40 meq KCL at 50cc/hr. Patient in on SHIP MANAGER Dilaudid on demand. Call light and SHIP MANAGER button in reach. Bed in lowest position. Side rails up x3. Will resume plan of care.
--- NOTE | 2019-12-31 09:00 | NUR ---
NURSE NOTES: Patient received lying in bed, awake, alert and oriented x4. On nasal cannula 2 LPM, no respiratory distress, breathing even and unlabored, oxygen saturation at 98%. On CO2 monitoring for LOG PREPARER pump, demand doses through left upper arm PICC, also running TPN at 80 ml/hr and NS with 40 KCL at 50 ml/hr, infusing well. Left lower quadrant AMIE drain noted with sanguineous output, minimal amount. Right ileostomy, stoma pink, green output noted. Abdominal surgical incision intact, no drainage noted. Caban catheter patent and draining to yellow urine. Sinus Tachycardia on the monitor, low 100s. Patient NPO except medications. Patient feeling nauseated, PRN provided by previous nurse. No pain at this time. Call light placed within reach. Safety measures implemented, bed alarm kept at lowest position.
--- NOTE | 2019-12-31 09:25 | NUR ---
NURSE HAND-OFF REPORT: Latest Vital Signs: Temperature 99.2 , Pulse 116 , B/P 114 /82 , Respiratory Rate 17 , O2 SAT 89 , Nasal Cannula, O2 Flow Rate 2.0 . Vital Sign Comment: EKG Rhythm: Sinus Tachycardia Rhythm change?: N MD Notified?: - MD Response: Latest Jimenez Fall Score: 35 Fall Risk: Medium Risk Safety Measures: Call light Within Reach, Bed Alarm Zone 1, Side Rails Side Rails x2, Bed position Low and Locked. Fall Precautions: Yellow Socks Yellow Gown Door Sign Patient Fall Education Report given to VARGAS Sharp.
--- NOTE | 2019-12-31 09:33 | NUR ---
RADIOLOGY DEPT.,CHEST X-RAY DONE.-P.DYE
[2019-12-31] MEDS: Pramipexole 0.5mg tab ORAL SCH ×2 (09:40→17:13)
--- NOTE | 2019-12-31 10:52 | NUR ---
CASE MANAGEMENT:PATIENT MET INTERQUAL CRITICAL Addendum: 12/31/19 at 1355 by TRACI MCGOWAN LVN CASE MANAGEMENT:REVIEW 12/31/19 SI; S/P INTUBATION AND EXTUBATION S/P REVISION OF DEFUNCTIONALIZED SMALL BOWEL AND J POUCH AND REVISION OF ILEOSTOMY 12/28 BLEEDING FROM ILEOANAL J POUCH . POUCHITIS. BLE CELLULITIS. 99.2 115 22 97/74 89% ON 2L NC 12/31/19 ABG: pH 6.668 pO2 66.2 O2 SAT 68.1 IS; IV AMIKACIN Q36 IV DAPTOMYCIN/NS Q24 IV FLAGYL TID IV KCL@50ML/HR ATARAX PO Q6 PRN TPN IV Q24 SEROQUEL PO QHS EDUCATION DEPARTMENT REGISTRAR DILAUDID PROTOCOL TRANSFER TO ICU STATUS POST SURGERY DCP; FROM HOME PLAN; CONT REPIRATORY CARE ~O2 SAT LOW
--- NOTE | 2019-12-31 10:59 | Pulmonology Progress Note ---
Subjective Interval Events: Extubated yesterday Constitutional: Reports: no symptoms HEENT: Repors: no symptoms Respiratory: Reports: no symptoms Cardiovascular: Reports: no symptoms Genitourinary: Reports: no symptoms Psychiatric: Denies: depression Skin: Denies: rash Musculoskeletal: Reports: pain - controlled Allergies: Coded Allergies: AMPICILLIN (Verified Allergy, Unknown, 12/17/19) TETRACYCLINE (Verified Allergy, Unknown, 12/17/19) Objective Last 24 Hour Vital Signs Date Time Temp Pulse Resp B/P (MAP) Pulse Ox O2 Delivery O2 Flow Rate FiO2 12/31/19 10:15 115 15 97 12/31/19 10:00 111 17 113/66 (82) 99 12/31/19 09:00 116 17 114/82 (93) 89 12/31/19 09:00 Nasal Cannula 2.0 12/31/19 08:00 115 22 94 12/31/19 08:00 99.2 116 22 97/74 (82) 94 12/31/19 07:31 113 12/31/19 07:00 117 14 135/84 (101) 97 12/31/19 06:00 121 11 127/87 (100) 97 12/31/19 05:00 120 19 118/85 (96) 71 12/31/19 04:00 98.4 110 17 123/78 (93) 93 12/31/19 04:00 100 16 96 12/31/19 03:00 109 26 127/68 (87) 98 12/31/19 02:00 116 21 143/86 (105) 97 12/31/19 01:00 101 21 136/80 (98) 97 12/31/19 00:00 98.0 101 17 130/73 (92) 99 12/31/19 00:00 100 16 96 12/30/19 23:00 101 21 131/97 (108) 97 12/30/19 22:00 97 21 124/74 (91) 97 12/30/19 21:00 Nasal Cannula 2.0 12/30/19 21:00 98 19 140/72 (94) 95 12/30/19 20:08 97 Nasal Cannula 3.0 32 12/30/19 20:00 100 16 96 12/30/19 20:00 98.2 99 29 111/69 (83) 97 12/30/19 19:00 103 20 127/82 (97) 97 12/30/19 18:00 113 27 117/75 (89) 98 12/30/19 17:00 97 25 106/60 (75) 98 12/30/19 16:07 100 16 95 12/30/19 16:00 98.9 100 17 118/61 (80) 98 12/30/19 15:37 104 21 93 12/30/19 15:07 103 22 96 12/30/19 15:00 97 22 96/55 (69) 98 12/30/19 14:52 98 20 98 12/30/19 14:37 96 15 93 12/30/19 14:22 95 16 93 12/30/19 14:07 95 17 95 12/30/19 14:00 99 18 105/65 (78) 95 12/30/19 13:00 101 21 126/69 (88) 99 12/30/19 12:00 Nasal Cannula 2.0 Intake and Output 12/30/19 12/31/19 19:00 07:00 Intake Total 1825.0 ml 1849.6 ml Output Total 1000 ml 828 ml Balance 825.0 ml 1021.6 ml IV Total 1825.0 ml 1849.6 ml Output Urine Total 950 ml 760 ml Drainage Total 20 ml 26 ml Other 30 ml 42 ml # Bowel Movements 10 5 General Appearance: no acute distress Respiratory: chest wall non-tender Cardiovascular: normal peripheral pulses Abdomen: soft, non tender Microbiology Date/Time Source Procedure Growth Status 12/29/19 14:00 Abdominal Fluid Gram Stain - Final Resulted 12/29/19 14:00 Aerobic Culture - Final Escherichia Coli Resulted 12/29/19 14:00 Abdominal Fluid Anaerobic Culture - Preliminary NO GROWTH Resulted Laboratory Tests 12/30/19 12:15: POC Whole Blood Glucose 92 12/30/19 17:34: POC Whole Blood Glucose 87 12/31/19 03:50: White Blood Count 32.0*H, Red Blood Count 3.70L, Hemoglobin 11.2L, Hematocrit 34.7L, Mean Corpuscular Volume 94, Mean Corpuscular Hemoglobin 30.2, Mean Corpuscular Hemoglobin Concent 32.1, Red Cell Distribution Width 16.0H, Platelet Count 261, Mean Platelet Volume 6.6, Neutrophils (%) (Auto) , Lymphocytes (%) (Auto) , Monocytes (%) (Auto) , Eosinophils (%) (Auto) , Basophils (%) (Auto) , Differential Total Cells Counted 100, Neutrophils % (Manual) 96H, Lymphocytes % (Manual) 2L, Monocytes % (Manual) 2, Eosinophils % (Manual) 0, Basophils % (Manual) 0, Band Neutrophils 0, Platelet Estimate Adequate, Platelet Morphology Normal, Hypochromasia 1+, Anisocytosis 1+, Sodium Level 142, Potassium Level 3.9 , Chloride Level 105, Carbon Dioxide Level 28, Anion Gap 9, Blood Urea Nitrogen 33H, Creatinine 1.1, Estimat Glomerular Filtration Rate 50.7, Glucose Level 82, Calcium Level 8.3L, Phosphorus Level 4.0, Magnesium Level 2.1, Total Bilirubin 0.3, Aspartate Amino Transf (AST/SGOT) 44H, Alanine Aminotransferase (ALT/SGPT) 25, Alkaline Phosphatase 143H, Total Creatine Kinase 470H, Total Protein 6.4, Albumin 2.2L, Globulin 4.2, Albumin/Globulin Ratio 0.5L 12/31/19 04:03: POC Whole Blood Glucose 101 Current Medications Medications (Trade) Dose Ordered Sig/Margarette Route PRN Reason Start Time Stop Time Status Last Admin Dose Admin Acetaminophen/ Butalbital/ Caffeine (Fioricet) 1 tab Q6H PRN ORAL headache 12/29/19 20:30 01/18/20 20:29 12/30/19 09:04 Amikacin Protocol (Amikacin pharmacy to dose) 1 ea DAILY PRN MISC Per rx protocol 12/29/19 20:30 01/28/20 20:29 Amikacin Sulfate 750 mg/Sodium Chloride 113 ml @ 113 mls/hr Q36H IV 12/31/19 05:00 01/05/20 16:59 12/31/19 05:07 Chlorhexidine Gluconate (Patti-Hex 2%) 1 applic DAILY@1999 TOPIC 12/29/19 20:30 03/28/20 20:29 12/30/19 20:10 Clotrimazole (Lotrimin) 1 applic BID TOPIC 12/30/19 09:00 03/20/20 10:29 12/31/19 09:41 Daptomycin 350 mg/ Sodium Chloride 50 ml @ 100 mls/hr Q24H IV 12/30/19 16:00 01/04/20 15:59 12/30/19 15:43 Dextrose 1,000 ml @ 0 mls/hr Q24H PRN IV PN interrupted or unavailable 12/29/19 20:30 01/28/20 20:29 Dextrose (Dextrose 50%) 25 ml Q30M PRN IV Hypoglycemia 12/29/19 20:30 03/17/20 19:59 Dextrose (Dextrose 50%) 50 ml Q30M PRN IV Hypoglycemia 12/29/19 20:30 03/17/20 19:59 Diphenhydramine HCl (Benadryl) 25 mg Q4H PRN IVP Itching 12/30/19 21:50 01/29/20 21:49 12/31/19 00:11 Diphenhydramine HCl (Benadryl) 25 mg Q6H PRN ORAL Itching 12/29/19 20:30 01/19/20 20:29 12/31/19 07:50 Fat Emulsion Intravenous 240 ml/Amino Acids/ Electrolytes/ Dextrose 1,920 ml @ 80 mls/hr Q24H IV 12/30/19 20:00 01/27/20 19:59 12/30/19 20:10 Hydromorphone HCl 30 ml @ 0 mls/hr Q24H PRN IV For Pain 12/30/19 13:30 01/01/20 13:29 12/30/19 14:07 Hydromorphone HCl (Dilaudid) 1 mg Q3H PRN SUBQ Severe Breakthru Pain (>7) 12/30/19 13:30 01/06/20 13:29 Hydroxyzine HCl (Atarax) 50 mg Q6H PRN ORAL Itching 12/29/19 20:30 01/28/20 20:29 12/31/19 05:07 Insulin Aspart (NovoLOG) Q6HR SUBQ 12/30/19 00:00 03/18/20 00:00 Lansoprazole (Prevacid) 30 mg DAILY ORAL 12/30/19 09:00 01/17/20 08:59 12/31/19 09:40 Metronidazole 100 ml @ 100 mls/hr Q8HR IVPB 12/29/19 22:00 01/04/20 21:59 12/31/19 05:52 Micafungin Sodium 100 mg/Sodium Chloride 110 ml @ 110 mls/hr Q24H IVPB 12/30/19 16:00 01/06/20 15:59 12/30/19 17:38 Miscellaneous Medication (BEAR KEEPER Rate Change) 1 ea DAILY PRN MISC rate change 12/29/19 20:30 12/31/19 20:29 Miscellaneous Medication (BEAR KEEPER shift volume) 1 ea Q12HR@0700,1900 MISC 12/30/19 07:00 01/01/20 06:59 12/31/19 07:17 Naloxone HCl (Narcan) 0.1 mg Q1M PRN IVP RR<10/min OR SBP<90 mmHg 12/29/19 20:15 12/31/19 20:14 Ondansetron HCl (Zofran) 4 mg Q4H PRN IVP Nausea & Vomiting 12/30/19 21:40 01/29/20 21:39 12/31/19 07:50 Phytonadione (Vitamin K) 10 mg ONCE A WEEK SUBQ 01/01/20 09:00 03/24/20 08:59 Potassium Chloride/Sodium Chloride 1,000 ml @ 50 mls/hr Q20H IV 12/29/19 20:30 01/22/20 20:29 12/30/19 15:43 Pramipexole (Mirapex) 1 mg TWICE A DAY ORAL 12/30/19 09:00 01/16/20 17:59 12/31/19 09:40 Quetiapine Fumarate (SEROqueL) 200 mg BEDTIME ORAL 12/29/19 21:00 01/31/20 20:59 12/30/19 21:51 Temazepam (RestoriL) 7.5 mg HSPRN PRN ORAL Insomnia 12/29/19 21:00 01/01/20 20:59 Assessment/Plan Assessment/Plan IMPRESSION: 1. Status post re-intubation. 2. Status post extubation yesterday. 3. Status post laparotomy. 4. Ulcerative colitis. 5. GERD. DISCUSSION: Postoperative care per Dr. Mckeon. On TPN. The patient has been extubated yesterday. Continue oxygen and pulmonary hygiene. I will follow carefully. Pain control. DVT prophylaxis. GI prophylaxis. Transfer out of ICU. Onesimo Perales Omar Syed MD Dec 31, 2019 10:59
[2019-12-31] MEDS: NS w/KCl 40mEq 1,000 ML IV SCH (11:00)
--- NOTE | 2019-12-31 11:54 | Diagnostic Imaging Report ---
Procedure: XRAY Chest 1v Reason for study: Shortness of breath. Comparison films: 12/29/2019. FINDINGS: Endotracheal tube has been removed. Left PICC line remains in place. There is slight worsening of congestion and edema. Cardiac and mediastinal silhouette are within normal limits. CP angles are sharp. The bony thorax appear unremarkable. IMPRESSION: Slight worsening of congestion and edema.
--- NOTE | 2019-12-31 12:00 | NUR ---
NURSE NOTES: Patient remains on nasal cannula 2 LPM, respirations even and unlabored. Pain managed by LABOR RELATIONS TEACHER dilaudid demand doses.
--- NOTE | 2019-12-31 13:22 | Infectious Diseases Prog Note ---
Assessment/Plan Assessment/Plan ASSESSMENT AND PLAN: 1. e.coli uti, morganella uti, left leg cellulitis, ? drug reaction/atypical drug rash, elevated eosinophils, leukocytosis, low grade fevers better s/p surgery on 12/29/19 - significant leukocytosis, ? sepsis vs expected post-surgical leukocytosis fungemia risk, TPN atelectasis > pna (aspiration/hcap) preliminary abdominal fluid culture with gram negatives - amikacin and daptomycin, flagyl, add micafungin for fungal coverage - surveillance cultures, f/u on abdominal fluid culture with e.coli - e.coli uti was sensitive to amikacin previously, d/w lab/micro - monitor labs, leukocytosis, chest x-ray - icu care, mgt per Dr. Mckeon and Dr. Vega 2. skin care per protocol - ? fungal component, on clotrimazole cream 3. 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 4. History of Narcisa ileostomy. 5. History of ulcerative colitis. 6. History of multiple abdominal surgeries. 7. History of cholecystectomy. 8. History of peristomal hernia and mesh. 9. History of colectomy. 10. Continue treatment per Dr. Mckeon and consultants. 11. Allergies to ampicillin, tetracycline. She gets hives with ampicillin. 12. Social history is negative. 13. Family history is noncontributory. 14. MAR is noted. 15. Case was discussed with RN. 16. Case was discussed with Dr. Mckeon. 17. Case was discussed with the patient. Subjective Constitutional: Reports: fatigue; Denies: fever HEENT: Denies: congestion Respiratory: Denies: shortness of breath Cardiovascular: Denies: chest pain Gastrointestinal/Abdominal: Reports: nausea, vomiting Allergies: Coded Allergies: AMPICILLIN (Verified Allergy, Unknown, 12/17/19) TETRACYCLINE (Verified Allergy, Unknown, 12/17/19) Objective Last 24 Hour Vital Signs Date Time Temp Pulse Resp B/P (MAP) Pulse Ox O2 Delivery O2 Flow Rate FiO2 12/31/19 12:00 115 22 94 12/31/19 11:00 120 15 113/85 (94) 98 12/31/19 10:00 111 17 113/66 (82) 99 12/31/19 09:00 116 17 114/82 (93) 89 12/31/19 09:00 Nasal Cannula 2.0 12/31/19 08:00 115 22 94 12/31/19 08:00 99.2 116 22 97/74 (82) 94 12/31/19 07:31 113 12/31/19 07:00 117 14 135/84 (101) 97 12/31/19 06:00 121 11 127/87 (100) 97 12/31/19 05:00 120 19 118/85 (96) 71 12/31/19 04:00 98.4 110 17 123/78 (93) 93 12/31/19 04:00 100 16 96 12/31/19 03:00 109 26 127/68 (87) 98 12/31/19 02:00 116 21 143/86 (105) 97 12/31/19 01:00 101 21 136/80 (98) 97 12/31/19 00:00 98.0 101 17 130/73 (92) 99 12/31/19 00:00 100 16 96 12/30/19 23:00 101 21 131/97 (108) 97 12/30/19 22:00 97 21 124/74 (91) 97 12/30/19 21:00 Nasal Cannula 2.0 12/30/19 21:00 98 19 140/72 (94) 95 12/30/19 20:08 97 Nasal Cannula 3.0 32 12/30/19 20:00 100 16 96 12/30/19 20:00 98.2 99 29 111/69 (83) 97 12/30/19 19:00 103 20 127/82 (97) 97 12/30/19 18:00 113 27 117/75 (89) 98 12/30/19 17:00 97 25 106/60 (75) 98 12/30/19 16:07 100 16 95 12/30/19 16:00 98.9 100 17 118/61 (80) 98 12/30/19 15:37 104 21 93 12/30/19 15:07 103 22 96 12/30/19 15:00 97 22 96/55 (69) 98 12/30/19 14:52 98 20 98 12/30/19 14:37 96 15 93 12/30/19 14:22 95 16 93 12/30/19 14:07 95 17 95 12/30/19 14:00 99 18 105/65 (78) 95 Height (Feet): 5 Height (Inches): 1.00 Weight (Pounds): 152 General Appearance: no acute distress HEENT: normocephalic, atraumatic, anicteric Respiratory/Chest: crackles/rales, rhonchi - bilaterally Cardiovascular: normal rate, regular rhythm, no gallop/murmur Abdomen: other - some abdominal discomfort Genitourinary: other Extremities: no cyanosis Skin: no rash Chest x-ray - Procedure: XRAY Chest 1v Indication: Cough Technique: One view of the chest Comparison: none Findings: There is diffuse mild bilateral interstitial disease and central bronchial wall thickening. No focal airspace consolidation. No effusions. Normal heart size Impression: Acuity indeterminate mild interstitial disease. Correlate with clinical findings. No focal infiltrates CT abdomen and pelvis: Impression: Postsurgical changes, as described, including right lower quadrant simple ileostomy, prior total colectomy, and J-pouch. There is abundant anterior pelvic apparent defunctionalized small bowel which appears to be in continuity with and ileoanal J-pouch remnant. Most likely, this just represents old isolated small bowel, but the possibility of any of this representing either tumor or abscess is not completely excludable. Small parastomal hernia within the right lower quadrant ileostomy. This appears to be nonobstructive. Equivocal mild wall thickening of left upper quadrant jejunal loops. Enteritis is possible and correlation with clinical findings is recommended Age-indeterminate L2 vertebral body compression fracture deformity. Suspect old. Consider MRI if clinically relevant Prior cholecystectomy Inferior vena cava filter Findings discussed by phone Chest x-ray - 12/29/19 - FINDINGS: Lungs: Retrocardiac atelectasis versus infiltrate. No consolidation or interstitial edema. Pleural space: Trace left pleural effusion. Heart: Unremarkable. No cardiomegaly. Bones/joints: Unremarkable. Tubes, lines and devices: Endotracheal tube terminates 3 cm above the kyung. Left upper extremity PICC line terminates within the SVC. IMPRESSION: 1. Endotracheal tube terminates 3 cm above the kyung. 2. Left upper extremity PICC line terminates within the SVC. 3. Retrocardiac atelectasis versus infiltrate. 4. Trace left pleural effusion. Chest x-ray - 9/16/20 - Procedure: XRAY Chest 1v Procedure: XRAY Chest 1v Reason for study: Shortness of breath. Comparison films: 12/29/2019. FINDINGS: Endotracheal tube has been removed. Left PICC line remains in place. There is slight worsening of congestion and edema. Cardiac and mediastinal silhouette are within normal limits. CP angles are sharp. The bony thorax appear unremarkable. IMPRESSION: Slight worsening of congestion and edema. Microbiology Date/Time Source Procedure Growth Status 12/29/19 14:00 Abdominal Fluid Gram Stain - Final Resulted 12/29/19 14:00 Aerobic Culture - Final Escherichia Coli Resulted 12/29/19 14:00 Abdominal Fluid Anaerobic Culture - Preliminary NO GROWTH Resulted Laboratory Tests Test 12/30/19 17:34 12/31/19 03:50 12/31/19 04:03 POC Whole Blood Glucose 87 MG/DL (74-106) 101 MG/DL (74-106) White Blood Count 32.0 K/UL (4.8-10.8) *H Red Blood Count 3.70 M/UL (4.20-5.40) L Hemoglobin 11.2 G/DL (12.0-16.0) L Hematocrit 34.7 % (37.0-47.0) L Mean Corpuscular Volume 94 FL (80-99) Mean Corpuscular Hemoglobin 30.2 PG (27.0-31.0) Mean Corpuscular Hemoglobin Concent 32.1 G/DL (32.0-36.0) Red Cell Distribution Width 16.0 % (11.6-14.8) H Platelet Count 261 K/UL (150-450) Mean Platelet Volume 6.6 FL (6.5-10.1) Neutrophils (%) (Auto) % (45.0-75.0) Lymphocytes (%) (Auto) % (20.0-45.0) Monocytes (%) (Auto) % (1.0-10.0) Eosinophils (%) (Auto) % (0.0-3.0) Basophils (%) (Auto) % (0.0-2.0) Differential Total Cells Counted 100 Neutrophils % (Manual) 96 % (45-75) H Lymphocytes % (Manual) 2 % (20-45) L Monocytes % (Manual) 2 % (1-10) Eosinophils % (Manual) 0 % (0-3) Basophils % (Manual) 0 % (0-2) Band Neutrophils 0 % (0-8) Platelet Estimate Adequate Platelet Morphology Normal Hypochromasia 1+ Anisocytosis 1+ Sodium Level 142 MMOL/L (136-145) Potassium Level 3.9 MMOL/L (3.5-5.1) Chloride Level 105 MMOL/L (98-107) Carbon Dioxide Level 28 MMOL/L (21-32) Anion Gap 9 mmol/L (5-15) Blood Urea Nitrogen 33 mg/dL (7-18) H Creatinine 1.1 MG/DL (0.55-1.30) Estimat Glomerular Filtration Rate 50.7 mL/min (>60) Glucose Level 82 MG/DL (74-106) Calcium Level 8.3 MG/DL (8.5-10.1) L Phosphorus Level 4.0 MG/DL (2.5-4.9) Magnesium Level 2.1 MG/DL (1.8-2.4) Total Bilirubin 0.3 MG/DL (0.2-1.0) Aspartate Amino Transf (AST/SGOT) 44 U/L (15-37) H Alanine Aminotransferase (ALT/SGPT) 25 U/L (12-78) Alkaline Phosphatase 143 U/L (46-116) H Total Creatine Kinase 470 U/L (26-308) H Total Protein 6.4 G/DL (6.4-8.2) Albumin 2.2 G/DL (3.4-5.0) L Globulin 4.2 g/dL Albumin/Globulin Ratio 0.5 (1.0-2.7) L Current Medications Medications (Trade) Dose Ordered Sig/Margarette Route PRN Reason Start Time Stop Time Status Last Admin Dose Admin Acetaminophen/ Butalbital/ Caffeine (Fioricet) 1 tab Q6H PRN ORAL headache 12/29/19 20:30 01/18/20 20:29 12/30/19 09:04 Amikacin Protocol (Amikacin pharmacy to dose) 1 ea DAILY PRN MISC Per rx protocol 12/29/19 20:30 01/28/20 20:29 Amikacin Sulfate 750 mg/Sodium Chloride 113 ml @ 113 mls/hr Q36H IV 12/31/19 05:00 01/05/20 16:59 12/31/19 05:07 Chlorhexidine Gluconate (Patti-Hex 2%) 1 applic DAILY@1999 TOPIC 12/29/19 20:30 03/28/20 20:29 12/30/19 20:10 Clotrimazole (Lotrimin) 1 applic BID TOPIC 12/30/19 09:00 03/20/20 10:29 12/31/19 09:41 Daptomycin 350 mg/ Sodium Chloride 50 ml @ 100 mls/hr Q24H IV 12/30/19 16:00 01/04/20 15:59 12/30/19 15:43 Dextrose 1,000 ml @ 0 mls/hr Q24H PRN IV PN interrupted or unavailable 12/29/19 20:30 01/28/20 20:29 Dextrose (Dextrose 50%) 25 ml Q30M PRN IV Hypoglycemia 12/29/19 20:30 03/17/20 19:59 Dextrose (Dextrose 50%) 50 ml Q30M PRN IV Hypoglycemia 12/29/19 20:30 03/17/20 19:59 Diphenhydramine HCl (Benadryl) 25 mg Q4H PRN IVP Itching 12/30/19 21:50 01/29/20 21:49 12/31/19 00:11 Diphenhydramine HCl (Benadryl) 25 mg Q6H PRN ORAL Itching 12/29/19 20:30 01/19/20 20:29 12/31/19 07:50 Fat Emulsion Intravenous 240 ml/Amino Acids/ Electrolytes/ Dextrose 1,920 ml @ 80 mls/hr Q24H IV 12/30/19 20:00 01/27/20 19:59 12/30/19 20:10 Hydromorphone HCl 30 ml @ 0 mls/hr Q24H PRN IV For Pain 12/30/19 13:30 01/01/20 13:29 12/30/19 14:07 Hydromorphone HCl (Dilaudid) 1 mg Q3H PRN SUBQ Severe Breakthru Pain (>7) 12/30/19 13:30 01/06/20 13:29 Hydroxyzine HCl (Atarax) 50 mg Q6H PRN ORAL Itching 12/29/19 20:30 01/28/20 20:29 12/31/19 13:13 Insulin Aspart (NovoLOG) Q6HR SUBQ 12/30/19 00:00 03/18/20 00:00 Lansoprazole (Prevacid) 30 mg DAILY ORAL 12/30/19 09:00 01/17/20 08:59 12/31/19 09:40 Metronidazole 100 ml @ 100 mls/hr Q8HR IVPB 12/29/19 22:00 01/04/20 21:59 12/31/19 13:13 Micafungin Sodium 100 mg/Sodium Chloride 110 ml @ 110 mls/hr Q24H IVPB 12/30/19 16:00 01/06/20 15:59 12/30/19 17:38 Miscellaneous Medication (EMERGENCY VEHICLE OPERATOR Rate Change) 1 ea DAILY PRN MISC rate change 12/29/19 20:30 12/31/19 20:29 Miscellaneous Medication (EMERGENCY VEHICLE OPERATOR shift volume) 1 ea Q12HR@0700,1900 MISC 12/30/19 07:00 01/01/20 06:59 12/31/19 07:17 Naloxone HCl (Narcan) 0.1 mg Q1M PRN IVP RR<10/min OR SBP<90 mmHg 12/29/19 20:15 12/31/19 20:14 Ondansetron HCl (Zofran) 4 mg Q4H PRN IVP Nausea & Vomiting 12/30/19 21:40 01/29/20 21:39 12/31/19 12:10 Phytonadione (Vitamin K) 10 mg ONCE A WEEK SUBQ 01/01/20 09:00 03/24/20 08:59 Potassium Chloride/Sodium Chloride 1,000 ml @ 50 mls/hr Q20H IV 12/29/19 20:30 01/22/20 20:29 12/31/19 11:00 Pramipexole (Mirapex) 1 mg TWICE A DAY ORAL 12/30/19 09:00 01/16/20 17:59 12/31/19 09:40 Quetiapine Fumarate (SEROqueL) 200 mg BEDTIME ORAL 12/29/19 21:00 01/31/20 20:59 12/30/19 21:51 Temazepam (RestoriL) 7.5 mg HSPRN PRN ORAL Insomnia 12/29/19 21:00 01/01/20 20:59 Kevan Burgess MD Dec 31, 2019 13:22
--- NOTE | 2019-12-31 13:27 | Infectious Diseases Prog Note ---
Assessment/Plan Assessment/Plan ASSESSMENT AND PLAN: 1. e.coli uti, morganella uti, left leg cellulitis, ? b-lactim drug reaction/atypical drug rash to aztreonam vs vancomycin s/p surgery on 12/29/19 - significant leukocytosis, ? sepsis vs expected post-surgical leukocytosis fungemia risk, TPN atelectasis > pna (aspiration/hcap) preliminary abdominal fluid culture with gram negatives - e.coli, s-amikacin pending elevated Ck noted - ? daptomycin - amikacin, flagyl, doxycycline and micafungin - surveillance cultures, f/u on abdominal fluid culture with e.coli - e.coli uti was sensitive to amikacin previously, d/w lab/micro - monitor labs, leukocytosis, chest x-ray - icu care, mgt per Dr. Mckeon and Dr. Vega 2. skin care per protocol - ? fungal component, on clotrimazole cream 3. 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 4. History of Narcisa ileostomy. 5. History of ulcerative colitis. 6. History of multiple abdominal surgeries. 7. History of cholecystectomy. 8. History of peristomal hernia and mesh. 9. History of colectomy. 10. Continue treatment per Dr. Mckeon and consultants. 11. Allergies to ampicillin, tetracycline. She gets hives with ampicillin. 12. Social history is negative. 13. Family history is noncontributory. 14. MAR is noted. 15. Case was discussed with RN. 16. Case was discussed with Dr. Mckeon. 17. Case was discussed with the patient. Subjective Constitutional: Denies: fever HEENT: Denies: congestion Respiratory: Denies: shortness of breath Cardiovascular: Denies: chest pain Gastrointestinal/Abdominal: Reports: nausea, vomiting Allergies: Coded Allergies: AMPICILLIN (Verified Allergy, Unknown, 12/17/19) TETRACYCLINE (Verified Allergy, Unknown, 12/17/19) Objective Last 24 Hour Vital Signs Date Time Temp Pulse Resp B/P (MAP) Pulse Ox O2 Delivery O2 Flow Rate FiO2 12/31/19 12:00 115 22 94 12/31/19 11:00 120 15 113/85 (94) 98 12/31/19 10:00 111 17 113/66 (82) 99 12/31/19 09:00 116 17 114/82 (93) 89 12/31/19 09:00 Nasal Cannula 2.0 12/31/19 08:00 115 22 94 12/31/19 08:00 99.2 116 22 97/74 (82) 94 12/31/19 07:31 113 12/31/19 07:00 117 14 135/84 (101) 97 12/31/19 06:00 121 11 127/87 (100) 97 12/31/19 05:00 120 19 118/85 (96) 71 12/31/19 04:00 98.4 110 17 123/78 (93) 93 12/31/19 04:00 100 16 96 12/31/19 03:00 109 26 127/68 (87) 98 12/31/19 02:00 116 21 143/86 (105) 97 12/31/19 01:00 101 21 136/80 (98) 97 12/31/19 00:00 98.0 101 17 130/73 (92) 99 12/31/19 00:00 100 16 96 12/30/19 23:00 101 21 131/97 (108) 97 12/30/19 22:00 97 21 124/74 (91) 97 12/30/19 21:00 Nasal Cannula 2.0 12/30/19 21:00 98 19 140/72 (94) 95 12/30/19 20:08 97 Nasal Cannula 3.0 32 12/30/19 20:00 100 16 96 12/30/19 20:00 98.2 99 29 111/69 (83) 97 12/30/19 19:00 103 20 127/82 (97) 97 12/30/19 18:00 113 27 117/75 (89) 98 12/30/19 17:00 97 25 106/60 (75) 98 12/30/19 16:07 100 16 95 12/30/19 16:00 98.9 100 17 118/61 (80) 98 12/30/19 15:37 104 21 93 12/30/19 15:07 103 22 96 12/30/19 15:00 97 22 96/55 (69) 98 12/30/19 14:52 98 20 98 12/30/19 14:37 96 15 93 12/30/19 14:22 95 16 93 12/30/19 14:07 95 17 95 12/30/19 14:00 99 18 105/65 (78) 95 Height (Feet): 5 Height (Inches): 1.00 Weight (Pounds): 152 General Appearance: no acute distress HEENT: normocephalic, atraumatic, anicteric Respiratory/Chest: crackles/rales, rhonchi - bilaterally Cardiovascular: normal rate, regular rhythm Abdomen: other - + pain, no rebound Chest x-ray - Procedure: XRAY Chest 1v Indication: Cough Technique: One view of the chest Comparison: none Findings: There is diffuse mild bilateral interstitial disease and central bronchial wall thickening. No focal airspace consolidation. No effusions. Normal heart size Impression: Acuity indeterminate mild interstitial disease. Correlate with clinical findings. No focal infiltrates CT abdomen and pelvis: Impression: Postsurgical changes, as described, including right lower quadrant simple ileostomy, prior total colectomy, and J-pouch. There is abundant anterior pelvic apparent defunctionalized small bowel which appears to be in continuity with and ileoanal J-pouch remnant. Most likely, this just represents old isolated small bowel, but the possibility of any of this representing either tumor or abscess is not completely excludable. Small parastomal hernia within the right lower quadrant ileostomy. This appears to be nonobstructive. Equivocal mild wall thickening of left upper quadrant jejunal loops. Enteritis is possible and correlation with clinical findings is recommended Age-indeterminate L2 vertebral body compression fracture deformity. Suspect old. Consider MRI if clinically relevant Prior cholecystectomy Inferior vena cava filter Findings discussed by phone Chest x-ray - 12/29/19 - FINDINGS: Lungs: Retrocardiac atelectasis versus infiltrate. No consolidation or interstitial edema. Pleural space: Trace left pleural effusion. Heart: Unremarkable. No cardiomegaly. Bones/joints: Unremarkable. Tubes, lines and devices: Endotracheal tube terminates 3 cm above the kyung. Left upper extremity PICC line terminates within the SVC. IMPRESSION: 1. Endotracheal tube terminates 3 cm above the kyung. 2. Left upper extremity PICC line terminates within the SVC. 3. Retrocardiac atelectasis versus infiltrate. 4. Trace left pleural effusion. Chest x-ray - 12/31/19 - Procedure: XRAY Chest 1v Procedure: XRAY Chest 1v Reason for study: Shortness of breath. Comparison films: 12/29/2019. FINDINGS: Endotracheal tube has been removed. Left PICC line remains in place. There is slight worsening of congestion and edema. Cardiac and mediastinal silhouette are within normal limits. CP angles are sharp. The bony thorax appear unremarkable. IMPRESSION: Slight worsening of congestion and edema. Microbiology Date/Time Source Procedure Growth Status 12/29/19 14:00 Abdominal Fluid Gram Stain - Final Resulted 12/29/19 14:00 Aerobic Culture - Final Escherichia Coli Resulted 12/29/19 14:00 Abdominal Fluid Anaerobic Culture - Preliminary NO GROWTH Resulted Laboratory Tests Test 12/30/19 17:34 12/31/19 03:50 12/31/19 04:03 POC Whole Blood Glucose 87 MG/DL (74-106) 101 MG/DL (74-106) White Blood Count 32.0 K/UL (4.8-10.8) *H Red Blood Count 3.70 M/UL (4.20-5.40) L Hemoglobin 11.2 G/DL (12.0-16.0) L Hematocrit 34.7 % (37.0-47.0) L Mean Corpuscular Volume 94 FL (80-99) Mean Corpuscular Hemoglobin 30.2 PG (27.0-31.0) Mean Corpuscular Hemoglobin Concent 32.1 G/DL (32.0-36.0) Red Cell Distribution Width 16.0 % (11.6-14.8) H Platelet Count 261 K/UL (150-450) Mean Platelet Volume 6.6 FL (6.5-10.1) Neutrophils (%) (Auto) % (45.0-75.0) Lymphocytes (%) (Auto) % (20.0-45.0) Monocytes (%) (Auto) % (1.0-10.0) Eosinophils (%) (Auto) % (0.0-3.0) Basophils (%) (Auto) % (0.0-2.0) Differential Total Cells Counted 100 Neutrophils % (Manual) 96 % (45-75) H Lymphocytes % (Manual) 2 % (20-45) L Monocytes % (Manual) 2 % (1-10) Eosinophils % (Manual) 0 % (0-3) Basophils % (Manual) 0 % (0-2) Band Neutrophils 0 % (0-8) Platelet Estimate Adequate Platelet Morphology Normal Hypochromasia 1+ Anisocytosis 1+ Sodium Level 142 MMOL/L (136-145) Potassium Level 3.9 MMOL/L (3.5-5.1) Chloride Level 105 MMOL/L (98-107) Carbon Dioxide Level 28 MMOL/L (21-32) Anion Gap 9 mmol/L (5-15) Blood Urea Nitrogen 33 mg/dL (7-18) H Creatinine 1.1 MG/DL (0.55-1.30) Estimat Glomerular Filtration Rate 50.7 mL/min (>60) Glucose Level 82 MG/DL (74-106) Calcium Level 8.3 MG/DL (8.5-10.1) L Phosphorus Level 4.0 MG/DL (2.5-4.9) Magnesium Level 2.1 MG/DL (1.8-2.4) Total Bilirubin 0.3 MG/DL (0.2-1.0) Aspartate Amino Transf (AST/SGOT) 44 U/L (15-37) H Alanine Aminotransferase (ALT/SGPT) 25 U/L (12-78) Alkaline Phosphatase 143 U/L (46-116) H Total Creatine Kinase 470 U/L (26-308) H Total Protein 6.4 G/DL (6.4-8.2) Albumin 2.2 G/DL (3.4-5.0) L Globulin 4.2 g/dL Albumin/Globulin Ratio 0.5 (1.0-2.7) L Current Medications Medications (Trade) Dose Ordered Sig/Margarette Route PRN Reason Start Time Stop Time Status Last Admin Dose Admin Acetaminophen/ Butalbital/ Caffeine (Fioricet) 1 tab Q6H PRN ORAL headache 12/29/19 20:30 01/18/20 20:29 12/30/19 09:04 Amikacin Protocol (Amikacin pharmacy to dose) 1 ea DAILY PRN MISC Per rx protocol 12/29/19 20:30 01/28/20 20:29 Amikacin Sulfate 750 mg/Sodium Chloride 113 ml @ 113 mls/hr Q36H IV 12/31/19 05:00 01/05/20 16:59 12/31/19 05:07 Chlorhexidine Gluconate (Patti-Hex 2%) 1 applic DAILY@1999 TOPIC 12/29/19 20:30 03/28/20 20:29 12/30/19 20:10 Clotrimazole (Lotrimin) 1 applic BID TOPIC 12/30/19 09:00 03/20/20 10:29 12/31/19 09:41 Daptomycin 350 mg/ Sodium Chloride 50 ml @ 100 mls/hr Q24H IV 12/30/19 16:00 01/04/20 15:59 12/30/19 15:43 Dextrose 1,000 ml @ 0 mls/hr Q24H PRN IV PN interrupted or unavailable 12/29/19 20:30 01/28/20 20:29 Dextrose (Dextrose 50%) 25 ml Q30M PRN IV Hypoglycemia 12/29/19 20:30 03/17/20 19:59 Dextrose (Dextrose 50%) 50 ml Q30M PRN IV Hypoglycemia 12/29/19 20:30 03/17/20 19:59 Diphenhydramine HCl (Benadryl) 25 mg Q4H PRN IVP Itching 12/30/19 21:50 01/29/20 21:49 12/31/19 00:11 Diphenhydramine HCl (Benadryl) 25 mg Q6H PRN ORAL Itching 12/29/19 20:30 01/19/20 20:29 12/31/19 07:50 Fat Emulsion Intravenous 240 ml/Amino Acids/ Electrolytes/ Dextrose 1,920 ml @ 80 mls/hr Q24H IV 12/30/19 20:00 01/27/20 19:59 12/30/19 20:10 Hydromorphone HCl 30 ml @ 0 mls/hr Q24H PRN IV For Pain 12/30/19 13:30 01/01/20 13:29 12/30/19 14:07 Hydromorphone HCl (Dilaudid) 1 mg Q3H PRN SUBQ Severe Breakthru Pain (>7) 12/30/19 13:30 01/06/20 13:29 Hydroxyzine HCl (Atarax) 50 mg Q6H PRN ORAL Itching 12/29/19 20:30 01/28/20 20:29 12/31/19 13:13 Insulin Aspart (NovoLOG) Q6HR SUBQ 12/30/19 00:00 12/20 00:00 Lansoprazole (Prevacid) 30 mg DAILY ORAL 12/30/19 09:00 01/17/20 08:59 12/31/19 09:40 Metronidazole 100 ml @ 100 mls/hr Q8HR IVPB 12/29/19 22:00 01/04/20 21:59 12/31/19 13:13 Micafungin Sodium 100 mg/Sodium Chloride 110 ml @ 110 mls/hr Q24H IVPB 12/30/19 16:00 01/06/20 15:59 12/30/19 17:38 Miscellaneous Medication (POLICY ANALYST Rate Change) 1 ea DAILY PRN MISC rate change 12/29/19 20:30 12/31/19 20:29 Miscellaneous Medication (POLICY ANALYST shift volume) 1 ea Q12HR@0700,1900 MISC 12/30/19 07:00 01/01/20 06:59 12/31/19 07:17 Naloxone HCl (Narcan) 0.1 mg Q1M PRN IVP RR<10/min OR SBP<90 mmHg 12/29/19 20:15 12/31/19 20:14 Ondansetron HCl (Zofran) 4 mg Q4H PRN IVP Nausea & Vomiting 12/30/19 21:40 01/29/20 21:39 12/31/19 12:10 Phytonadione (Vitamin K) 10 mg ONCE A WEEK SUBQ 01/01/20 09:00 03/24/20 08:59 Potassium Chloride/Sodium Chloride 1,000 ml @ 50 mls/hr Q20H IV 12/29/19 20:30 01/22/20 20:29 12/31/19 11:00 Pramipexole (Mirapex) 1 mg TWICE A DAY ORAL 12/30/19 09:00 01/16/20 17:59 12/31/19 09:40 Quetiapine Fumarate (SEROqueL) 200 mg BEDTIME ORAL 12/29/19 21:00 01/31/20 20:59 12/30/19 21:51 Temazepam (RestoriL) 7.5 mg HSPRN PRN ORAL Insomnia 12/29/19 21:00 01/01/20 20:59 Kevan Burgess MD Dec 31, 2019 13:27
--- NOTE | 2019-12-31 13:59 | General Progress Note ---
Progress Note Progress Note patient allergic to tetracycline/doxycycline likely previous rash secondary to aztreonam will continue amikacin, flagyl and micafungin discontinue daptomycin since CK elevated start vancomycin for gram + coverage d/w pharmacy Kevan Burgess MD Dec 31, 2019 13:59
--- NOTE | 2019-12-31 14:30 | NUR ---
NURSE NOTES: Dr. Mckeon saw and assessed patient. Patient stable at this time. MD aware of patient's heart rate 118-120s. Will continue to monitor.
--- NOTE | 2019-12-31 14:33 | General Progress Note ---
Progress Note Progress Note Afebrile but tachycardia to 120..Pain controlled with dilaudid telecommunications facility examiner; pruritus (chronic x months + acute) Abdomen soft, stoma pink, edematous, incision clean Urine 1740 Ileostomy 57 enteric AMIE drain 46 serosang WBC 32,000 Hgb 11.2 BUN 33 Cr 1.1 Albumin 2.2 Imp: R/O sepsis - antibiotics adjusted by ID Ileus Plan; continue npo, TPN, Caban Maintain in ICU Gio Mckeon MD Dec 31, 2019 14:33
--- NOTE | 2019-12-31 16:00 | NUR ---
NURSE NOTES: Ice chips and ice pack provided to patient. Tolerating ice chips. No complains at this time.
[2019-12-31] MEDS ORDERED: Tubing IV Secondary IV ONE (16:08)
[2019-12-31] MEDS: Micafungin 100 MG in NS 110 ML IVPB SCH (17:16)
[2019-12-31] MEDS: PCA HYDROmorphone 1mg/ml 30 ML IV PRN (18:24)
--- NOTE | 2019-12-31 18:50 | NUR ---
NURSE NOTES: Remaining dose of 2.[address] SUPERVISOR Dilaudid IV wasted with Priti Aparicio RN.
--- NOTE | 2019-12-31 19:20 | NUR ---
NURSE HAND-OFF REPORT: Latest Vital Signs: Temperature 98.3 , Pulse 113 , B/P 114 /66 , Respiratory Rate 17 , O2 SAT 99 , Nasal Cannula, O2 Flow Rate 2.0 . Vital Sign Comment: Sinus Tachy EKG Rhythm: Sinus Tachycardia Rhythm change?: N MD Notified?: - MD Response: MD aware. Latest Jimenez Fall Score: 35 Fall Risk: Medium Risk Safety Measures: Call light Within Reach, Bed Alarm Zone 1, Side Rails Side Rails x2, Bed position Low and Locked. Fall Precautions: Yellow Socks Yellow Gown Door Sign Patient Fall Education Report given to VARGAS Lyle.
--- NOTE | 2019-12-31 19:30 | NUR ---
NURSE NOTES: Received pt awake and alert AO x4, BERMUDEZ x4, abdominal drsg dry and intact, RT abdominal ileostomy to drain with greenish drainage approximately 100ml at this time. Left abdominal AMIE to self suction with serosanguinous drainage, minimal in amt, ST 0n the 120s on the monitor, Dr Mckeon was aware, Bp stable. Afebrile.Pt with TPN at 80ml/hr, NS + 40meq KCL at 50ml/hr and Dilauded RESPIRATORY TECHNICIAN for pain. All IV been infusing to KELLEE PICC line. Site with drsg dry and intact. complaining of being nauseaus and feeling itchy on her arm. Benadryl 25mg ivp and Zofran 4mg ivp was given. Will continue to monitor.
[2019-12-31] MEDS: Dyna-Hex 2% Top Sol 2oz TOPIC SCH (19:31)
[2019-12-31] MEDS: Fat Emulsion Iv 20% 240 ML in Tpn 1,680 ML IV SCH (20:23)
[2019-12-31] MEDS ORDERED: Doxycycline 100mg in D5W 110ml IV SCH (21:00)
--- NOTE | 2019-12-31 21:45 | NUR ---
NURSE NOTES: Spoke to Abhinav pharmacist with regards to meds Seroquiel 200mg PO that it did not appeared in the [facility] for 12/30 at 2100 dose and instead its due 01/01/20 at 2100 dose. I was advised and told by Abhinav pharmacist to order Seroquiel 200mg PO x i dose so the pt wont missed any dose. Discussed with charger operatorVARGAS Munroe and been agreed.
[2019-12-31] MEDS ORDERED: QUEtiapine 200mg tab ORAL SCH (22:00)
--- NOTE | 2019-12-31 23:00 | NUR ---
NURSE NOTES: Pt is very needy and constantly using call lights, explained to pt that shes in ICU and whatever she needs she has to say it one time and not constantly using call lights every 15-30 minutes. Pt verbalized understanding but still constantly using call lights.
[2020-01-01] VITALS (27 sets, daily range): BP systolic 97–139; BP diastolic 60–96
--- NOTE | 2020-01-01 01:36 | NUR ---
NURSE NOTES: Complained of itchiness , and nauseauos, Benadryl 25mg ivp and zofran 4mg ivp was given.
[2020-01-01] MEDS: DiphenhydrAMINE 50mg/ml Inj IVP PRN ×4 (01:40→21:37)
--- NOTE | 2020-01-01 02:30 | NUR ---
NURSE NOTES: Dozing on and off at this time.
--- NOTE | 2020-01-01 04:31 | NUR ---
NURSE NOTES: Complete bed bath with bed changed was done.
[2020-01-01 04:32] LABS: HEMATOCRIT 30.3 % (37.0-47.0); HEMOGLOBIN 9.9 G/DL (12.0-16.0); MEAN CORPUSCULAR VOLUME 95 FL (80-99); PLATELET COUNT 233 K/UL (150-450); RED BLOOD COUNT 3.21 M/UL (4.20-5.40)
[2020-01-01 04:50] LABS: WHITE BLOOD COUNT 35.4 K/UL (4.8-10.8)
[2020-01-01 05:09] LABS: ALBUMIN 1.9 G/DL (3.4-5.0); ALBUMIN/GLOBULIN RATIO 0.5 (1.0-2.7); BILIRUBIN,TOTAL 0.4 MG/DL (0.2-1.0); CALCIUM 8.5 MG/DL (8.5-10.1); CREATININE 1.2 MG/DL (0.55-1.30); PHOSPHORUS 3.9 MG/DL (2.5-4.9); POTASSIUM 4.8 MMOL/L (3.5-5.1)
--- NOTE | 2020-01-01 05:53 | NUR ---
NURSE NOTES: Benadryl 25mg ivp was given due to pts itchiness.
[2020-01-01] MEDS: NS w/KCl 40mEq 1,000 ML IV SCH ×4 (05:54→23:30)
[2020-01-01] MEDS: NovoLOG Insulin Flexpen SUBQ SCH ×4 (05:55→18:00)
--- NOTE | 2020-01-01 06:30 | NUR ---
NURSE NOTES: dozing on and off Bp stable. 02 sat 100.
--- NOTE | 2020-01-01 07:55 | NUR ---
NURSE NOTES: Dilauded SHREDDER TENDER amount remaining 15.8 ml as witnessed by RN Daisy Puckett.
--- NOTE | 2020-01-01 08:03 | NUR ---
NURSE HAND-OFF REPORT: Latest Vital Signs: Temperature 98.8 , Pulse 122 , B/P 111 /80 , Respiratory Rate 13 , O2 SAT 100 , Nasal Cannula, O2 Flow Rate 2.0 . Vital Sign Comment: EKG Rhythm: Sinus Tachycardia Rhythm change?: N MD Notified?: - MD Response: Latest Jimenez Fall Score: 35 Fall Risk: Medium Risk Safety Measures: Call light Within Reach, Bed Alarm Zone 1, Side Rails Side Rails x2, Bed position Low and Locked. Fall Precautions: Yellow Socks Yellow Gown Door Sign Patient Fall Education Report given to Daisy KAYE.
[2020-01-01] MEDS: Pramipexole 0.5mg tab ORAL SCH ×2 (08:24→17:58)
[2020-01-01] MEDS: Phytonadione 10 mg/mL 1ml amp SUBQ SCH (08:24)
[2020-01-01] MEDS: HydrOXYzine 50mg tab ORAL PRN ×3 (08:26→23:07)
--- NOTE | 2020-01-01 08:37 | NUR ---
RD ASSESSMENT & RECOMMENDATIONS SEE CARE ACTIVITY FOR COMPLETE ASSESSMENT DAILY ESTIMATED NEEDS: Needs based on Surgery/ 59kg 25-30 kcals/kg 2263-0885 total kcals 1-2 g protein/kg 59-118 g total protein 25-35 mL/kg 3575-6018 total fluid mLs NUTRITION DIAGNOSIS: Altered GI function R/T h/o UC, total colectomy, admitted w/ failed ileoanal J pouch with abdominal pain and J pouch bleeding as evidenced by s/p resection defunctionalized small bowel and ileoanal J pouch, revision of ileostomy, NPO, cont on TPN. CURRENT DIET:NPO PO DIET RECOMMENDATIONS: DIET PER MD PARENTERAL NUTRITION RECOMMENDATIONS: D/AA Rate: 70 IL Rate: 10 Total Rate: 80 Volume: 1920 % Dextrose: 16 % AA: 5.0 Energy (kcals/kg): 1730 Protein (g/kg protein): 84 Nonprotein KCALS: 1394 GIR (mg CHO/kg/min): 3.17 % Fat KCALS: 27.7 NCP: N Ratio: 103.7 TPN Comment: - D16% AA 5.0% @ 70ml/hr + IL 20% @ 10ml/hr -> all 3:1, total of 80ml/hr - Maintain per MD - TPN @ goal provides 100% est kcal/prot needs 29kcal/1.42g prot per kg ADDITIONAL RECOMMENDATIONS: * Calibrated bedscale wt or standing wt as able for accurate CBW * Monitor lytes, replete as needed * Monitor LFTs, BGs closely, need for TPN formulary change . .
[2020-01-01] MEDS ORDERED: PCA shift volume MISC SCH (09:00)
[2020-01-01] MEDS ORDERED: Rate Change PCA 1 Each MISC PRN ×2 (09:30→19:42)
[2020-01-01] MEDS ORDERED: Naloxone 0.4mg/ml Inj IVP PRN (09:30)
--- NOTE | 2020-01-01 10:00 | NUR ---
NURSE NOTES: LATE ENTRY: PT UA COLLECTED. BLOOD CULTURES TAKEN. PT IN NO ACUTE DISTRESS. PT ASSISTED IN REPOSITION. CLEANED FOR A.M. TPN RUNNING, NS + 40KCL AT 50ML/HR. DRESSING CHANGED ON KELLEE PICC.
--- NOTE | 2020-01-01 10:59 | Pulmonology Progress Note ---
Subjective Interval Events: Extubated ; doing well Constitutional: Denies: fever HEENT: Repors: no symptoms Respiratory: Reports: no symptoms Cardiovascular: Reports: no symptoms Gastrointestinal/Abdominal: Reports: nausea, vomiting Genitourinary: Reports: no symptoms Psychiatric: Denies: depression Skin: Denies: rash Musculoskeletal: Reports: pain - controlled Allergies: Coded Allergies: AMPICILLIN (Verified Allergy, Unknown, 12/17/19) TETRACYCLINE (Verified Allergy, Unknown, 12/17/19) Objective Last 24 Hour Vital Signs Date Time Temp Pulse Resp B/P (MAP) Pulse Ox O2 Delivery O2 Flow Rate FiO2 01/01/20 10:00 120 12 97/62 (74) 91 01/01/20 09:00 121 19 131/61 (84) 93 01/01/20 09:00 Nasal Cannula 2.0 01/01/20 08:00 98.8 121 16 121/96 (104) 01/01/20 08:00 98 15 100 01/01/20 07:21 122 13 111/80 (90) 100 01/01/20 07:00 121 11 110/87 (95) 100 01/01/20 06:11 122 22 119/68 (85) 96 01/01/20 06:00 121 20 118/78 (91) 100 01/01/20 05:00 118 18 114/80 (91) 99 01/01/20 04:00 117 20 100 01/01/20 04:00 117 01/01/20 04:00 98.8 119 11 117/79 (92) 99 01/01/20 03:00 120 12 114/85 (95) 99 01/01/20 02:27 119 20 113/62 (79) 96 01/01/20 02:00 122 17 118/80 (93) 98 01/01/20 01:00 120 12 123/81 (95) 97 01/01/20 00:00 120 01/01/20 00:00 117 20 100 01/01/20 00:00 98.4 122 10 105/77 (86) 98 12/31/19 23:00 114 14 117/85 (96) 98 12/31/19 22:00 121 15 100/70 (80) 91 12/31/19 21:00 114 11 105/49 (67) 99 12/31/19 21:00 Nasal Cannula 2.0 12/31/19 20:00 116 12/31/19 20:00 115 17 94 12/31/19 20:00 98.2 115 15 115/75 (88) 98 12/31/19 19:00 113 17 114/66 (82) 99 12/31/19 18:54 98.3 12/31/19 18:27 115 15 94 12/31/19 18:21 115 15 94 12/31/19 18:00 118 15 102/86 (91) 88 12/31/19 17:00 116 13 115/98 (104) 97 12/31/19 16:00 98.3 119 18 116/63 (80) 95 12/31/19 16:00 119 22 94 12/31/19 16:00 124 12/31/19 15:00 117 11 96/65 (75) 96 12/31/19 14:00 122 12 106/72 (83) 96 12/31/19 13:00 116 17 105/70 (82) 100 12/31/19 12:00 122 12/31/19 12:00 Nasal Cannula 2.0 12/31/19 12:00 115 22 94 12/31/19 12:00 99.1 117 18 99/68 (78) 100 12/31/19 11:00 120 15 113/85 (94) 98 Intake and Output0 12/31/19 01/01/20 19:00 07:00 Intake Total 1646.667 ml 1862 ml Output Total 530 ml 580 ml Balance 1116.667 ml 1282 ml IV Total 1646.667 ml 1862 ml Output Urine Total 460 ml 500 ml Drainage Total 30 ml 30 ml Other 40 ml 50 ml General Appearance: no acute distress Respiratory: chest wall non-tender Cardiovascular: normal peripheral pulses Abdomen: soft, non tender Microbiology Date/Time Source Procedure Growth Status 12/29/19 14:00 Abdominal Fluid Gram Stain - Final Resulted 12/29/19 14:00 Aerobic Culture - Final Escherichia Coli Resulted 12/29/19 14:00 Abdominal Fluid Anaerobic Culture - Preliminary NO GROWTH Resulted Laboratory Tests 12/31/19 17:11: POC Whole Blood Glucose 113H 01/01/20 03:45: White Blood Count 35.4*H, Red Blood Count 3.21L, Hemoglobin 9.9L, Hematocrit 30.3L, Mean Corpuscular Volume 95, Mean Corpuscular Hemoglobin 30.7, Mean Corpuscular Hemoglobin Concent 32.5, Red Cell Distribution Width 16.0H, Platelet Count 233, Mean Platelet Volume 6.8, Neutrophils (%) (Auto) , Lymphocytes (%) (A uto) , Monocytes (%) (Auto) , Eosinophils (%) (Auto) , Basophils (%) (Auto) , Neutrophils % (Manual) [Pending], Lymphocytes % (Manual) [Pending], Platelet Estimate [Pending], Platelet Morphology [Pending], Sodium Level 138, Potassium Level 4.8, Chloride Level 105, Carbon Dioxide Level 24, Anion Gap 9, Blood Urea Nitrogen 57H, Creatinine 1.2, Estimat Glomerular Filtration Rate 45.9, Glucose Level 122H, Calcium Level 8.5, Phosphorus Level 3.9, Magnesium Level 2.1, Total Bilirubin 0.4, Aspartate Amino Transf (AST/SGOT) 61H, Alanine Aminotransferase (ALT/SGPT) 30, Alkaline Phosphatase 122H, Total Protein 5.9L, Albumin 1.9L, Globulin 4.0, Albumin/Globulin Ratio 0.5L Current Medications Medications (Trade) Dose Ordered Sig/Margarette Route PRN Reason Start Time Stop Time Status Last Admin Dose Admin Acetaminophen/ Butalbital/ Caffeine (Fioricet) 1 tab Q6H PRN ORAL headache 12/29/19 20:30 01/18/20 20:29 12/30/19 09:04 Amikacin Protocol (Amikacin pharmacy to dose) 1 ea DAILY PRN MISC Per rx protocol 12/29/19 20:30 01/28/20 20:29 Amikacin Sulfate 750 mg/Sodium Chloride 113 ml @ 113 mls/hr Q36H IV 12/31/19 05:00 01/05/20 16:59 12/31/19 05:07 Chlorhexidine Gluconate (Patti-Hex 2%) 1 applic DAILY@1999 TOPIC 12/29/19 20:30 03/28/20 20:29 12/31/19 19:31 Clotrimazole (Lotrimin) 1 applic BID TOPIC 12/30/19 09:00 03/20/20 10:29 01/01/20 08:27 Dextrose 1,000 ml @ 0 mls/hr Q24H PRN IV PN interrupted or unavailable 12/29/19 20:30 01/28/20 20:29 Dextrose (Dextrose 50%) 25 ml Q30M PRN IV Hypoglycemia 12/29/19 20:30 03/17/20 19:59 Dextrose (Dextrose 50%) 50 ml Q30M PRN IV Hypoglycemia 12/29/19 20:30 03/17/20 19:59 Diphenhydramine HCl (Benadryl) 25 mg Q4H PRN IVP Itching 12/30/19 21:50 01/29/20 21:49 01/01/20 05:53 Diphenhydramine HCl (Benadryl) 25 mg Q6H PRN ORAL Itching 12/29/19 20:30 01/19/20 20:29 12/31/19 17:13 Fat Emulsion Intravenous 240 ml/Amino Acids/ Electrolytes/ Dextrose 1,920 ml @ 80 mls/hr Q24H IV 12/30/19 20:00 01/27/20 19:59 12/31/19 20:23 Hydromorphone HCl 30 ml @ 0 mls/hr Q24H PRN IV For Pain 12/30/19 13:30 01/01/20 13:29 12/31/19 18:24 Hydromorphone HCl (Dilaudid) 1 mg Q3H PRN SUBQ Severe Breakthru Pain (>7) 12/30/19 13:30 01/06/20 13:29 Hydroxyzine HCl (Atarax) 50 mg Q6H PRN ORAL Itching 12/29/19 20:30 01/28/20 20:29 01/01/20 08:26 Insulin Aspart (NovoLOG) Q6HR SUBQ 12/30/19 00:00 03/18/20 00:00 Lansoprazole (Prevacid) 30 mg DAILY ORAL 12/30/19 09:00 01/17/20 08:59 01/01/20 08:24 Metronidazole 100 ml @ 100 mls/hr Q8HR IVPB 12/29/19 22:00 01/04/20 21:59 01/01/20 05:54 Micafungin Sodium 100 mg/Sodium Chloride 110 ml @ 110 mls/hr Q24H IVPB 12/30/19 16:00 01/06/20 15:59 12/31/19 17:16 Miscellaneous Medication (PLANT CYTOLOGIST Rate Change) 1 ea DAILY PRN MISC rate change 01/01/20 09:30 01/03/20 09:29 Miscellaneous Medication (PLANT CYTOLOGIST shift volume) 1 ea Q12HR@0700,1900 MISC 01/01/20 09:00 01/03/20 08:59 01/01/20 10:23 Naloxone HCl (Narcan) 0.1 mg Q1M PRN IVP RR<10/min OR SBP<90 mmHg 01/01/20 09:30 03/31/20 09:29 Ondansetron HCl (Zofran) 4 mg Q4H PRN IVP Nausea & Vomiting 12/30/19 21:40 01/29/20 21:39 01/01/20 08:27 Phytonadione (Vitamin K) 10 mg ONCE A WEEK SUBQ 01/01/20 09:00 03/24/20 08:59 01/01/20 08:24 Potassium Chloride/Sodium Chloride 1,000 ml @ 50 mls/hr Q20H IV 12/29/19 20:30 01/22/20 20:29 01/01/20 05:54 Pramipexole (Mirapex) 1 mg TWICE A DAY ORAL 12/30/19 09:00 01/16/20 17:59 01/01/20 08:24 Quetiapine Fumarate (SEROqueL) 200 mg BEDTIME ORAL 12/29/19 21:00 01/31/20 20:59 12/30/19 21:51 Temazepam (RestoriL) 7.5 mg HSPRN PRN ORAL Insomnia 12/29/19 21:00 01/01/20 20:59 Vancomycin HCl (Vanco pharmacy to dose) 1 ea DAILY PRN MISC Per rx protocol 12/31/19 14:00 01/30/20 13:59 Vancomycin HCl 750 mg/Sodium Chloride 250 ml @ 166.667 mls/hr Q12HR@0300,1500 IVPB 12/31/19 15:00 01/05/20 14:59 01/01/20 02:39 Assessment/Plan Assessment/Plan IMPRESSION: 1. Status post re-intubation. 2. Status post extubation yesterday. 3. Status post laparotomy. 4. Ulcerative colitis. 5. GERD. DISCUSSION: Postoperative care per Dr. Mckeon. On TPN. The patient has been extubated successfully. Continue oxygen and pulmonary hygiene. I will follow carefully. Pain control. DVT prophylaxis. GI prophylaxis. Transfer out of ICU. Onesimo Perales Omar Syed MD Jan 01, 2020 10:59
--- NOTE | 2020-01-01 12:00 | NUR ---
NURSE NOTES: LATE ENTRY: PT IN BED. ILEOSTOMY DRAINING TARRY LOOSE STOOL. AMIE 10ML TOTAL, SANGUINEOUS FLUID. DAVIDSON YELLOW URINE. AFEBRILE.
--- NOTE | 2020-01-01 13:01 | NUR ---
NURSE NOTES: md. perera here to see pt. no new orders. aware of wbc. pt c/o itching, anti itch PRN. adminatered per emar order.
[2020-01-01] MEDS ORDERED: NS 275ml ONE (13:58)
[2020-01-01] MEDS ORDERED: Tubing IV Secondary IV ONE (13:58)
--- NOTE | 2020-01-01 14:08 | Infectious Diseases Prog Note ---
Assessment/Plan Assessment/Plan ASSESSMENT AND PLAN: 1. e.coli uti, morganella uti, left leg cellulitis, ? reaction/atypical drug rash to aztreonam, allergies - ampicillin, tetracycline s/p surgery on 12/29/19 - significant leukocytosis, ? sepsis vs post-surgical leukocytosis fungemia risk, TPN atelectasis > pna (aspiration/hcap) preliminary intra-abdominal fluid culture, ? abscess - e.coli, s-amikacin pending (previous e.coli from urine sensitive to amikacin) elevated Ck noted - ? daptomycin - held - amikacin, flagyl, vancomycin, micafungin - surveillance cultures, f/u on abdominal fluid culture with e.coli - monitor labs, leukocytosis, chest x-ray - icu care, mgt per Dr. Mckeon and Dr. Vega - d/w Dr. Mckeon - d/w microbiology 2. skin care per protocol - ? fungal component, on clotrimazole cream 3. 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 4. History of Narcisa ileostomy. 5. History of ulcerative colitis. 6. History of multiple abdominal surgeries. 7. History of cholecystectomy. 8. History of peristomal hernia and mesh. 9. History of colectomy. 10. Continue treatment per Dr. Mckeon and consultants. 11. Allergies to ampicillin, tetracycline. She gets hives with ampicillin. 12. Social history is negative. 13. Family history is noncontributory. 14. MAR is noted. 15. Case was discussed with RN. 16. Case was discussed with Dr. Mckeon. 17. Case was discussed with the patient. Subjective Constitutional: Reports: fatigue; Denies: fever HEENT: Denies: congestion Respiratory: Denies: shortness of breath Cardiovascular: Denies: chest pain Gastrointestinal/Abdominal: Reports: other - + abdominal discomfort ; Denies: nausea, vomiting Genitourinary: Reports: other - + zheng Neurologic: Denies: headache Psychiatric: Reports: other - NA Skin: Reports: rash - improved, no new rash Hematologic: Denies: bleeding Musculoskeletal: Reports: pain - controlled Allergies: Coded Allergies: AMPICILLIN (Verified Allergy, Unknown, 12/17/19) TETRACYCLINE (Verified Allergy, Unknown, 12/17/19) Objective Last 24 Hour Vital Signs Date Time Temp Pulse Resp B/P (MAP) Pulse Ox O2 Delivery O2 Flow Rate FiO2 01/01/20 12:00 115 01/01/20 12:00 115 13 100 01/01/20 12:00 98.8 119 22 111/77 (88) 98 01/01/20 11:00 115 14 111/77 (88) 97 01/01/20 10:00 120 12 97/62 (74) 91 01/01/20 09:00 121 19 131/61 (84) 93 01/01/20 09:00 Nasal Cannula 2.0 01/01/20 08:00 119 01/01/20 08:00 98.8 121 16 121/96 (104) 01/01/20 08:00 98 15 100 01/01/20 07:21 122 13 111/80 (90) 100 01/01/20 07:00 121 11 110/87 (95) 100 01/01/20 06:11 122 22 119/68 (85) 96 01/01/20 06:00 121 20 118/78 (91) 100 01/01/20 05:00 118 18 114/80 (91) 99 01/01/20 04:00 117 20 100 01/01/20 04:00 117 01/01/20 04:00 98.8 119 11 117/79 (92) 99 01/01/20 03:00 120 12 114/85 (95) 99 01/01/20 02:27 119 20 113/62 (79) 96 01/01/20 02:00 122 17 118/80 (93) 98 01/01/20 01:00 120 12 123/81 (95) 97 01/01/20 00:00 120 01/01/20 00:00 117 20 100 01/01/20 00:00 98.4 122 10 105/77 (86) 98 12/31/19 23:00 114 14 117/85 (96) 98 12/31/19 22:00 121 15 100/70 (80) 91 12/31/19 21:00 114 11 105/49 (67) 99 12/31/19 21:00 Nasal Cannula 2.0 12/31/19 20:00 116 12/31/19 20:00 115 17 94 12/31/19 20:00 98.2 115 15 115/75 (88) 98 12/31/19 19:00 113 17 114/66 (82) 99 12/31/19 18:54 98.3 12/31/19 18:27 115 15 94 12/31/19 18:21 115 15 94 12/31/19 18:00 118 15 102/86 (91) 88 12/31/19 17:00 116 13 115/98 (104) 97 12/31/19 16:00 98.3 119 18 116/63 (80) 95 12/31/19 16:00 119 22 94 12/31/19 16:00 124 12/31/19 15:00 117 11 96/65 (75) 96 12/31/19 14:00 122 12 106/72 (83) 96 Height (Feet): 5 Height (Inches): 1.00 Weight (Pounds): 152 General Appearance: no acute distress HEENT: normocephalic, atraumatic, anicteric Respiratory/Chest: lungs clear, normal breath sounds, no respiratory distress, no accessory muscle use Cardiovascular: normal rate, regular rhythm, no gallop/murmur Abdomen: non distended, other - some paint, no rebound Genitourinary: other - + zheng Extremities: no cyanosis Skin: no rash Neurologic/Psychiatric: residential support specialist II-XII grossly normal, alert, oriented x 3, responsive Lymphatic: no neck adenopathy Musculoskeletal: no effusion Chest x-ray - Procedure: XRAY Chest 1v Indication: Cough Technique: One view of the chest Comparison: none Findings: There is diffuse mild bilateral interstitial disease and central br onchial wall thickening. No focal airspace consolidation. No effusions. Normal heart size Impression: Acuity indeterminate mild interstitial disease. Correlate with clinical findings. No focal infiltrates CT abdomen and pelvis: Impression: Postsurgical changes, as described, including right lower quadrant simple ileostomy, prior total colectomy, and J-pouch. There is abundant anterior pelvic apparent defunctionalized small bowel which appears to be in continuity with and ileoanal J-pouch remnant. Most likely, this just represents old isolated small bowel, but the possibility of any of this representing either tumor or abscess is not completely excludable. Small parastomal hernia within the right lower quadrant ileostomy. This appears to be nonobstructive. Equivocal mild wall thickening of left upper quadrant jejunal loops. Enteritis is possible and correlation with clinical findings is recommended Age-indeterminate L2 vertebral body compression fracture deformity. Suspect old. Consider MRI if clinically relevant Prior cholecystectomy Inferior vena cava filter Findings discussed by phone Chest x-ray - 12/29/19 - FINDINGS: Lungs: Retrocardiac atelectasis versus infiltrate. No consolidation or interstitial edema. Pleural space: Trace left pleural effusion. Heart: Unremarkable. No cardiomegaly. Bones/joints: Unremarkable. Tubes, lines and devices: Endotracheal tube terminates 3 cm above the kyung. Left upper extremity PICC line terminates within the SVC. IMPRESSION: 1. Endotracheal tube terminates 3 cm above the kyung. 2. Left upper extremity PICC line terminates within the SVC. 3. Retrocardiac atelectasis versus infiltrate. 4. Trace left pleural effusion. Chest x-ray - 12/31/19 - Procedure: XRAY Chest 1v Procedure: XRAY Chest 1v Reason for study: Shortness of breath. Comparison films: 12/29/2019. FINDINGS: Endotracheal tube has been removed. Left PICC line remains in place. There is slight worsening of congestion and edema. Cardiac and mediastinal silhouette are within normal limits. CP angles are sharp. The bony thorax appear unremarkable. IMPRESSION: Slight worsening of congestion and edema. Microbiology Date/Time Source Procedure Growth Status 12/29/19 14:00 Abdominal Fluid Gram Stain - Final Complete 12/29/19 14:00 Aerobic Culture - Final Escherichia Coli Complete 12/29/19 14:00 Abdominal Fluid Anaerobic Culture - Final NO ANAEROBES ISOLATED Complete 12/27/19 11:13 Nasopharynx SARS-CoV-2 RdRp Gene Assay - Final Complete 12/23/19 17:15 Stool Clostridium difficile Toxin Assay - Final Complete 12/22/19 19:30 Urine,Clean Catch Urine Culture - Final Morganella Morg Spp Morganii Complete 12/22/19 19:00 Blood Blood Culture - Final NO GROWTH AFTER 5 DAYS Complete Microbiology Date/Time Source Procedure Growth Status 12/29/19 14:00 Abdominal Fluid Gram Stain - Final Complete 12/29/19 14:00 Aerobic Culture - Final Escherichia Coli Complete 12/29/19 14:00 Abdominal Fluid Anaerobic Culture - Final NO ANAEROBES ISOLATED Complete Laboratory Tests Test 12/31/19 17:11 01/01/20 03:45 POC Whole Blood Glucose 113 MG/DL (74-106) H White Blood Count 35.4 K/UL (4.8-10.8) *H Red Blood Count 3.21 M/UL (4.20-5.40) L Hemoglobin 9.9 G/DL (12.0-16.0) L Hematocrit 30.3 % (37.0-47.0) L Mean Corpuscular Volume 95 FL (80-99) Mean Corpuscular Hemoglobin 30.7 PG (27.0-31.0) Mean Corpuscular Hemoglobin Concent 32.5 G/DL (32.0-36.0) Red Cell Distribution Width 16.0 % (11.6-14.8) H Platelet Count 233 K/UL (150-450) Mean Platelet Volume 6.8 FL (6.5-10.1) Neutrophils (%) (Auto) % (45.0-75.0) Lymphocytes (%) (Auto) % (20.0-45.0) Monocytes (%) (Auto) % (1.0-10.0) Eosinophils (%) (Auto) % (0.0-3.0) Basophils (%) (Auto) % (0.0-2.0) Differential Total Cells Counted 100 Neutrophils % (Manual) 86 % (45-75) H Lymphocytes % (Manual) 7 % (20-45) L Monocytes % (Manual) 6 % (1-10) Eosinophils % (Manual) 0 % (0-3) Basophils % (Manual) 1 % (0-2) Band Neutrophils 0 % (0-8) Platelet Estimate Adequate Platelet Morphology Normal Hypochromasia 2+ Anisocytosis 1+ Sodium Level 138 MMOL/L (136-145) Potassium Level 4.8 MMOL/L (3.5-5.1) Chloride Level 105 MMOL/L (98-107) Carbon Dioxide Level 24 MMOL/L (21-32) Anion Gap 9 mmol/L (5-15) Blood Urea Nitrogen 57 mg/dL (7-18) H Creatinine 1.2 MG/DL (0.55-1.30) Estimat Glomerular Filtration Rate 45.9 mL/min (>60) Glucose Level 122 MG/DL (74-106) H Calcium Level 8.5 MG/DL (8.5-10.1) Phosphorus Level 3.9 MG/DL (2.5-4.9) Magnesium Level 2.1 MG/DL (1.8-2.4) Total Bilirubin 0.4 MG/DL (0.2-1.0) Aspartate Amino Transf (AST/SGOT) 61 U/L (15-37) H Alanine Aminotransferase (ALT/SGPT) 30 U/L (12-78) Alkaline Phosphatase 122 U/L (46-116) H Total Protein 5.9 G/DL (6.4-8.2) L Albumin 1.9 G/DL (3.4-5.0) L Globulin 4.0 g/dL Albumin/Globulin Ratio 0.5 (1.0-2.7) L Current Medications Medications (Trade) Dose Ordered Sig/Margarette Route PRN Reason Start Time Stop Time Status Last Admin Dose Admin Acetaminophen/ Butalbital/ Caffeine (Fioricet) 1 tab Q6H PRN ORAL headache 12/29/19 20:30 01/18/20 20:29 12/30/19 09:04 Amikacin Protocol (Amikacin pharmacy to dose) 1 ea DAILY PRN MISC Per rx protocol 12/29/19 20:30 01/28/20 20:29 Amikacin Sulfate 750 mg/Sodium Chloride 113 ml @ 113 mls/hr Q36H IV 12/31/19 05:00 01/05/20 16:59 12/31/19 05:07 Chlorhexidine Gluconate (Patti-Hex 2%) 1 applic DAILY@2000 TOPIC 12/29/19 20:30 03/28/20 20:29 12/31/19 19:31 Clotrimazole (Lotrimin) 1 applic BID TOPIC 12/30/19 09:00 03/20/20 10:29 01/01/20 08:27 Dextrose 1,000 ml @ 0 mls/hr Q24H PRN IV PN interrupted or unavailable 12/29/19 20:30 01/28/20 20:29 Dextrose (Dextrose 50%) 25 ml Q30M PRN IV Hypoglycemia 12/29/19 20:30 03/17/20 19:59 Dextrose (Dextrose 50%) 50 ml Q30M PRN IV Hypoglycemia 12/29/19 20:30 03/17/20 19:59 Diphenhydramine HCl (Benadryl) 25 mg Q4H PRN IVP Itching 12/30/19 21:50 01/29/20 21:49 01/01/20 12:04 Diphenhydramine HCl (Benadryl) 25 mg Q6H PRN ORAL Itching 12/29/19 20:30 01/19/20 20:29 12/31/19 17:13 Fat Emulsion Intravenous 240 ml/Amino Acids/ Electrolytes/ Dextrose 1,920 ml @ 80 mls/hr Q24H IV 12/30/19 20:00 01/27/20 19:59 12/31/19 20:23 Hydromorphone HCl (Dilaudid) 1 mg Q3H PRN SUBQ Severe Breakthru Pain (>7) 12/30/19 13:30 01/06/20 13:29 Hydroxyzine HCl (Atarax) 50 mg Q6H PRN ORAL Itching 12/29/19 20:30 01/28/20 20:29 01/01/20 08:26 Insulin Aspart (NovoLOG) Q6HR SUBQ 12/30/19 00:00 03/18/20 00:00 Lansoprazole (Prevacid) 30 mg DAILY ORAL 12/30/19 09:00 01/17/20 08:59 01/01/20 08:24 Metronidazole 100 ml @ 100 mls/hr Q8HR IVPB 12/29/19 22:00 01/04/20 21:59 01/01/20 05:54 Micafungin Sodium 100 mg/Sodium Chloride 110 ml @ 110 mls/hr Q24H IVPB 12/30/19 16:00 01/06/20 15:59 12/31/19 17:16 Miscellaneous Medication (GROOMING SALON MANAGER Rate Change) 1 ea DAILY PRN MISC rate change 01/01/20 09:30 01/03/20 09:29 Miscellaneous Medication (GROOMING SALON MANAGER shift volume) 1 ea Q12HR@0700,1900 MISC 01/01/20 09:00 01/03/20 08:59 01/01/20 10:23 Naloxone HCl (Narcan) 0.1 mg Q1M PRN IVP RR<10/min OR SBP<90 mmHg 01/01/20 09:30 03/31/20 09:29 Ondansetron HCl (Zofran) 4 mg Q4H PRN IVP Nausea & Vomiting 12/30/19 21:40 01/29/20 21:39 01/01/20 12:58 Phytonadione (Vitamin K) 10 mg ONCE A WEEK SUBQ 01/01/20 09:00 03/24/20 08:59 01/01/20 08:24 Potassium Chloride/Sodium Chloride 1,000 ml @ 50 mls/hr Q20H IV 12/29/19 20:30 01/22/20 20:29 01/01/20 05:54 Pramipexole (Mirapex) 1 mg TWICE A DAY ORAL 12/30/19 09:00 01/16/20 17:59 01/01/20 08:24 Quetiapine Fumarate (SEROqueL) 200 mg BEDTIME ORAL 12/29/19 21:00 01/31/20 20:59 12/30/19 21:51 Temazepam (RestoriL) 7.5 mg HSPRN PRN ORAL Insomnia 12/29/19 21:00 01/01/20 20:59 Vancomycin HCl (Vanco pharmacy to dose) 1 ea DAILY PRN MISC Per rx protocol 12/31/19 14:00 01/30/20 13:59 Vancomycin HCl 750 mg/Sodium Chloride 250 ml @ 166.667 mls/hr Q12HR@0300,1500 IVPB 12/31/19 15:00 01/05/20 14:59 01/01/20 02:39 Kevan Burgess MD Jan 01, 2020 14:07
--- NOTE | 2020-01-01 15:24 | General Progress Note ---
Progress Note Progress Note Afebrile, feels okay but weak. Tachycardia persists Abdomen soft, mildly distended, incision clean, stoma pink Urine 950 Ileostomy 80 AMIE drain 115 WBC 35,400 Hgb 9.9 BUN 57 Cr 1.2 albumin 1.9 Imp: Severe leukocytosis Ileus Malnutrition Plan; Increase IV fluids continue npo, TPN PT mobility protocol f/u labs in AM Gio Mckeon MD Jan 01, 2020 15:24
--- NOTE | 2020-01-01 16:00 | NUR ---
NURSE NOTES: LATE ENTRY: PT REQUESTED ATARAX 50MG TAB FOR ITCHING P.O. PT SKIN DRY, PEELING. SMALL LACERATIONS NOTED ON BILATERAL BUTTOCKS FROM PT'S NAILS. OINTMENT APPLIED AND MEDICATION ADMINISTERED.
[2020-01-01] MEDS: Micafungin 100 MG in NS 110 ML IVPB SCH (16:37)
[2020-01-01] MEDS: Amikacin 750 MG in NS 110 ML IV SCH (17:57)
[2020-01-01 18:15] LABS: APPEARANCE,URINE CLEAR; BILIRUBIN, URINE NEGATIVE (NEGATIVE); COLOR,URINE PALE YELLOW; GLUCOSE, URINE (UA) NEGATIVE (NEGATIVE); KETONES,URINE NEGATIVE (NEGATIVE); LEUKOCYTE ESTERASE ,URINE 1+ (NEGATIVE); NITRITE,URINE NEGATIVE (NEGATIVE); PH,URINE 5 (4.5-8.0); PROTEIN,URINE 2+ (NEGATIVE); UROBILINOGEN,URINE NORMAL MG/DL (0.0-1.0)
--- NOTE | 2020-01-01 18:50 | NUR ---
NURSE NOTES: LATE ENTRY: CALLED MD GUSTAFSON REGARDING PT NEED FOR RENEWAL OF PARCEL POST CARRIER PUMP. RECEIVED ORDER TO RENEW ALL PARCEL POST CARRIER ORDERS. PT IN BED, C/O PAIN ABDOMINAL AREA. 09/23.
--- NOTE | 2020-01-01 19:00 | NUR ---
NURSE NOTES: Received patient and report from VARGAS Villa. Patient is observed resting in bed and noted to be alert and oriented x4. Pt is currently able to follow commands and make needs known. Abdominal pain noted upon assessment i [facility] the pt currently rates as 4/10 pain. LAMINATING MACHINE TENDER pump settings, volume and lock checked at bedside with off going shift. Pt is currently on 2L NC with an O2 saturation of 99% noted at this time. ETCO2 monitoring in effect per protocol r/t LAMINATING MACHINE TENDER use. Bilateral lower lobe breath sounds noted to be diminished upon auscultation. Pt noted to be ST on tele monitor with a HR of 114 with no s/sx of acute cardiac distress noted. L Upper arm PICC line noted which remains asymptomatic, intact and patent. Central line dressing remains clean ,dry and intact. TPN currently infusing at 80mL/hr and NS+40KCL currently infusing at 100mL/hr as prescribed. Abdomen remains round, soft and tender. Right upper quadrant ileostomy noted; stoma remains red and without s/sx of complications. L sided AMIE drain noted. Diagnostics reviewed at bedside. Skin remains intact but alterations noted from dryness and peeling. Pt repositioned for comfort and safety. Fall, Aspiration and Skin precautions observed. Pt remains resting in bed; Bed remains in the lowest position with the safety wheels engaged, call light within reach, side rails up x3 and bed alarm activated. Will continue plan of care. Will continue to monitor.
[2020-01-01] MEDS ORDERED: PCA HYDROmorphone 1mg/ml 30 ML IV PRN (19:41)
[2020-01-01] MEDS: Dyna-Hex 2% Top Sol 2oz TOPIC SCH (19:41)
[2020-01-01] MEDS: QUEtiapine 200mg tab ORAL SCH (20:48)
[2020-01-01] MEDS: Fat Emulsion Iv 20% 240 ML in Tpn 1,680 ML IV SCH (20:49)
--- NOTE | 2020-01-01 21:00 | NUR ---
NURSE NOTES: Pt provided with a CHG bed bath, oral care and linen change. ROM exercises performed with pt per pt tolerance. Pt tolerated care well. Bedside assessment performed, assessed pt for pain which is noted but pt notes HIDE WORKER helping to control pain. Pt provided with education on pain and HIDE WORKER pump as well as diversional activities. VS obtained and remain stable at this time. Pt requests PRN Bendaryl for itching and PRN Zofran for nausea, both administered and no adverse s/sx noted from medication administration. Pt remains clean and dry. Pt repositioned for comfort and safety. Fall, Aspiration and Skin precautions observed. Pt remains resting in bed; Bed remains in the lowest position with the safety wheels engaged, call light within reach, side rails up x3 and bed alarm activated. Will continue plan of care. Will continue to monitor.
--- NOTE | 2020-01-01 23:00 | NUR ---
NURSE NOTES: Bedside assessment performed, assessed pt with a FLACC scale of 3 noted. Pt noted to be sleeping at this time. VS obtained and remain stable. Pt remains clam, clean and dry. Fall, Aspiration and Skin precautions observed. Pt remains resting in bed; Bed remains in the lowest position with the safety wheels engaged, call light within reach, side rails up x3 and bed alarm activated. Will continue plan of care. Will continue to monitor.
[2020-01-02] VITALS (24 sets, daily range): BP systolic 100–155; BP diastolic 53–122
--- NOTE | 2020-01-02 00:38 | NUR ---
NURSE NOTES: Pt noted to awake and then push HEAD OF PRODUCT button 7 times consecutively. Pt provided education on medication, HEAD OF PRODUCT pump and proper usage. Pt states she understands but was witnessed hitting the button 3 consecutive times. Will continue to provide reinforcement and education. Pt states that HEAD OF PRODUCT is helping and refuses additional pain medication.
[2020-01-02] MEDS: DiphenhydrAMINE 50mg/ml Inj IVP PRN ×3 (02:55→21:21)
--- NOTE | 2020-01-02 02:57 | NUR ---
NURSE NOTES: HOUSEHOLD COOK syringe noted to be near empty Pump notes 0.349mL waste, approximately 0.4mL between tubing and syringe. Waste witnessed by second RN Brea and assisted by charge hand Naima. New HOUSEHOLD COOK syringe/tube acquired and double checked by charge hand Pt VS obtained before and after; pt provided with additional education and successfully able to teach back information.
--- NOTE | 2020-01-02 03:00 | NUR ---
NURSE NOTES: Bedside assessment performed, assessed pt for pain, pt admits to pain at this time. Pt noted to still press GAUGER CHIEF DELIVERY button multiple times at once. Re-educated patient on GAUGER CHIEF DELIVERY pump, pain management and alternative measures. VS obtained and remain stable. Pt remains calm, clean and dry. Fall, Aspiration and Skin precautions observed. Pt remains resting in bed; Bed remains in the lowest position with the safety wheels engaged, call light within reach, side rails up x3 and bed alarm activated. Will continue plan of care. Will continue to monitor.
[2020-01-02 04:55] LABS: HEMOGLOBIN 8.3 G/DL (12.0-16.0); MEAN CORPUSCULAR VOLUME 94 FL (80-99); PLATELET COUNT 241 K/UL (150-450); RED BLOOD COUNT 2.75 M/UL (4.20-5.40); RED CELL DISTRIBUTION WIDTH 15.8 % (11.6-14.8)
[2020-01-02 04:56] LABS: ALBUMIN 1.7 G/DL (3.4-5.0); ALBUMIN/GLOBULIN RATIO 0.5 (1.0-2.7); BILIRUBIN,TOTAL 0.3 MG/DL (0.2-1.0); CREATININE 1.1 MG/DL (0.55-1.30); PHOSPHORUS 3.6 MG/DL (2.5-4.9); POTASSIUM 4.5 MMOL/L (3.5-5.1)
--- NOTE | 2020-01-02 05:00 | NUR ---
NURSE NOTES: Bedside assessment performed, assessed pt for pain, pt admits to pain at this time. VS obtained and remain stable. Pt remains calm, clean and dry. Fall, Aspiration and Skin precautions observed. Pt remains resting in bed; Bed remains in the lowest position with the safety wheels engaged, call light within reach, side rails up x3 and bed alarm activated. Will continue plan of care. Will continue to monitor.
[2020-01-02] MEDS: HydrOXYzine 50mg tab ORAL PRN ×2 (05:13→12:25)
[2020-01-02 05:24] LABS: WHITE BLOOD COUNT 31.1 K/UL (4.8-10.8)
[2020-01-02] MEDS: NovoLOG Insulin Flexpen SUBQ SCH ×5 (06:00→23:59)
[2020-01-02] MEDS ORDERED: PCA shift volume MISC SCH (07:00)
--- NOTE | 2020-01-02 07:21 | NUR ---
NURSE HAND-OFF REPORT: Latest Vital Signs: Temperature 98.6 , Pulse 105 , B/P 115 /60 , Respiratory Rate 14 , O2 SAT 100 , Nasal Cannula, O2 Flow Rate 2.0 . Vital Sign Comment: VS remains stable for duration of shift. EKG Rhythm: Sinus Tachycardia Rhythm change?: N MD Notified?: - MD Response: N/A Latest Jimenez Fall Score: 35 Fall Risk: Medium Risk Safety Measures: Call light Within Reach, Bed Alarm Zone 2, Side Rails Side Rails x2, Bed position Low and Locked. Fall Precautions: Yellow Socks Report given to VARGAS Villa. Endorsed plan of care.
--- NOTE | 2020-01-02 07:23 | NUR ---
NURSE NOTES: SALES ENGINEER pump checked w/ Berna R.N 25.8ml. pt in no acute distress. VSS. Caban draining, ileostomy intact, AMIE drain intact. call light in reach. bed alarm on. KELLEE PICC patent. dressing dry and intact. running TPN, NS+40KCL at 100ml/hr. will continue to monitor pt. Afebrile.
--- NOTE | 2020-01-02 08:36 | NUR ---
NURSE NOTES: PHYSICAL THERAPIST HERE TO WORK WITH PT. WAS INFORMED PT ON HONING MACHINE OPERATOR PUMP, THIGH HIGH SCD'S, SINUS TACHY ON MONITOR. BP STABLE. PT WILLING TO DO EXCESSES TODAY.
[2020-01-02] MEDS: Pramipexole 0.5mg tab ORAL SCH ×2 (08:39→18:02)
--- NOTE | 2020-01-02 10:33 | NUR ---
NURSE NOTES: MD. LAZO. HERE TO SEE PT. PT ON INTRALIPID AT 80ML/HR. BUN/CRE 54/1.1. FLUIDS NS +40KCL AT 100ML/HR. WILL PLACE OWN ORDERS.
--- NOTE | 2020-01-02 10:48 | Pulmonology Progress Note ---
Subjective Interval Events: Extubated ; doing well Constitutional: Reports: fatigue; Denies: fever HEENT: Repors: no symptoms Respiratory: Reports: no symptoms Cardiovascular: Reports: no symptoms Gastrointestinal/Abdominal: Reports: other - + abdominal discomfort ; Denies: nausea, vomiting Genitourinary: Reports: no symptoms Psychiatric: Reports: other - NA Skin: Reports: rash - improved, no new rash Musculoskeletal: Reports: pain - controlled Allergies: Coded Allergies: AMPICILLIN (Verified Allergy, Unknown, 12/17/19) TETRACYCLINE (Verified Allergy, Unknown, 12/17/19) Objective Last 24 Hour Vital Signs Date Time Temp Pulse Resp B/P (MAP) Pulse Ox O2 Delivery O2 Flow Rate FiO2 01/02/20 10:00 110 13 110/57 (74) 100 01/02/20 09:00 98.9 106 24 136/122 (127) 100 01/02/20 08:00 Nasal Cannula 2.0 01/02/20 08:00 111 01/02/20 08:00 110 20 100 01/02/20 08:00 111 21 125/104 (111) 97 01/02/20 07:40 96 Nasal Cannula 3.0 32 01/02/20 07:00 105 14 115/60 (78) 100 01/02/20 06:00 106 17 119/57 (77) 100 01/02/20 05:00 111 21 123/64 (83) 93 01/02/20 04:00 109 20 100 01/02/20 04:00 Nasal Cannula 2.0 01/02/20 04:00 98.6 109 20 121/62 (81) 99 01/02/20 03:11 114 01/02/20 03:00 111 15 129/69 (89) 100 01/02/20 02:57 111 15 100 01/02/20 02:00 108 17 132/79 (96) 100 01/02/20 01:00 108 15 155/118 (130) 99 01/02/20 00:00 110 14 99 01/02/20 00:00 Nasal Cannula 2.0 01/02/20 00:00 98.6 108 14 115/60 (78) 99 01/01/20 23:14 118 01/01/20 23:00 115 22 139/81 (100) 99 01/01/20 22:00 111 12 125/72 (89) 100 01/01/20 21:00 117 22 119/72 (88) 91 01/01/20 20:00 111 15 99 01/01/20 20:00 Nasal Cannula 2.0 01/01/20 20:00 98.6 113 15 125/60 (81) 99 01/01/20 19:20 114 01/01/20 19:06 98 Nasal Cannula 3.0 32 01/01/20 19:00 117 19 130/67 (88) 99 01/01/20 18:00 111 17 113/74 (87) 100 01/01/20 17:00 119 20 112/73 (86) 97 01/01/20 16:00 117 22 95 01/01/20 16:00 118 35 121/82 (95) 97 01/01/20 16:00 Nasal Cannula 2.0 01/01/20 16:00 117 01/01/20 15:00 116 22 126/74 (91) 100 01/01/20 14:00 118 23 122/65 (84) 100 01/01/20 13:00 115 17 116/65 (82) 100 01/01/20 12:00 Nasal Cannula 2.0 01/01/20 12:00 115 01/01/20 12:00 115 13 100 01/01/20 12:00 98.8 119 22 111/77 (88) 98 01/01/20 11:00 115 14 111/77 (88) 97 Intake and Output 01/01/20 01/02/20 19:00 07:00 Intake Total 1976.334 ml 2607.000 ml Output Total 510 ml 1655 ml Balance 1466.334 ml 952.000 ml IV Total 1976.334 ml 2607.000 ml Output Urine Total 405 ml 1040 ml Drainage Total 15 ml 15 ml Other 90 ml 600 ml General Appearance: no acute distress Respiratory: chest wall non-tender Cardiovascular: normal peripheral pulses Abdomen: soft, non tender Laboratory Tests 01/01/20 12:17: POC Whole Blood Glucose 113H 01/01/20 15:45: Amikacin Level Trough 4.8 01/01/20 18:00: Urine Color Pale yellow, Urine Appearance Clear, Urine pH 5, Urine Specific [place] 1.015, Urine Protein 2+H, Urine Glucose (UA) Negative, Urine Ketones Negative, Urine Blood 3+H, Urine Nitrite Negative, Urine Bilirubin Negative, U rine Urobilinogen Normal, Urine Leukocyte Esterase 1+H, Urine RBC 5-10H, Urine WBC 2-4, Urine Squamous Epithelial Cells Few, Urine Bacteria Few 01/01/20 18:30: POC Whole Blood Glucose [Pending] 01/02/20 02:00: Vancomycin Level Trough 15.1H 01/02/20 04:30: White Blood Count 31.1*H, Red Blood Count 2.75L, Hemoglobin 8.3L, Hematocrit 26.0L, Mean Corpuscular Volume 94, Mean Corpuscular Hemoglobin 30.2, Mean Corpuscular Hemoglobin Concent 32.0, Red Cell Distribution Width 15.8H, Platelet Count 241, Mean Platelet Volume 6.3L, Neutrophils (%) (Auto) , Lymphocytes (%) (Auto) , Monocytes (%) (Auto) , Eosinophils (%) (Auto) , Basophils (%) (Auto) , Differential Total Cells Counted 100, Neutrophils % (Manual) 89H, Lymphocytes % (Manual) 4L, Monocytes % (Manual) 4, Eosinophils % (Manual) 3, Basophils % (Manual) 0, Band Neutrophils 0, Platelet Estimate Adequate, Platelet Morphology Normal, Hypochromasia 1+, Anisocytosis 1+, Sodium Level 136, Potassium Level 4.5, Chloride Level 105, Carbon Dioxide Level 23, Anion Gap 8, Blood Urea Nitrogen 54H, Creatinine 1.1, Estimat Glomerular Filtration Rate 50.7, Glucose Level 116H, Calcium Level 8.0L, Phosphorus Level 3.6, Magnesium Level 1.8, Total Bilirubin 0.3, Aspartate Amino Transf (AST/SGOT) 81H, Alanine Aminotransferase (ALT/SGPT) 47, Alkaline Phosphatase 106, Total Protein 5.2L, Albumin 1.7L, Globulin 3.5, Albumin/Globulin Ratio 0.5L 01/02/20 05:01: POC Whole Blood Glucose 90 Current Medications Medications (Trade) Dose Ordered Sig/Margarette Route PRN Reason Start Time Stop Time Status Last Admin Dose Admin Acetaminophen/ Butalbital/ Caffeine (Fioricet) 1 tab Q6H PRN ORAL headache 12/29/19 20:30 01/18/20 20:29 12/30/19 09:04 Amikacin Protocol (Amikacin pharmacy to dose) 1 ea DAILY PRN MISC Per rx protocol 12/29/19 20:30 01/28/20 20:29 Amikacin Sulfate 750 mg/Sodium Chloride 113 ml @ 113 mls/hr Q36H IV 12/31/19 05:00 01/05/20 16:59 01/01/20 17:57 Chlorhexidine Gluconate (Patti-Hex 2%) 1 applic DAILY@1999 TOPIC 12/29/19 20:30 03/28/20 20:29 01/01/20 19:41 Clotrimazole (Lotrimin) 1 applic BID TOPIC 12/30/19 09:00 03/20/20 10:29 01/02/20 08:39 Dextrose 1,000 ml @ 0 mls/hr Q24H PRN IV PN interrupted or unavailable 12/29/19 20:30 01/28/20 20:29 Dextrose (Dextrose 50%) 25 ml Q30M PRN IV Hypoglycemia 12/29/19 20:30 03/17/20 19:59 Dextrose (Dextrose 50%) 50 ml Q30M PRN IV Hypoglycemia 12/29/19 20:30 03/17/20 19:59 Diphenhydramine HCl (Benadryl) 25 mg Q4H PRN IVP Itching 12/30/19 21:50 01/29/20 21:49 01/02/20 08:39 Diphenhydramine HCl (Benadryl) 25 mg Q6H PRN ORAL Itching 12/29/19 20:30 01/19/20 20:29 12/31/19 17:13 Fat Emulsion Intravenous 240 ml/Amino Acids/ Electrolytes/ Dextrose 1,920 ml @ 80 mls/hr Q24H IV 12/30/19 20:00 01/27/20 19:59 01/01/20 20:49 Hydromorphone HCl 30 ml @ 0 mls/hr Q24H PRN IV For Pain 01/01/20 19:41 01/03/20 19:40 01/02/20 02:57 Hydromorphone HCl (Dilaudid) 1 mg Q3H PRN SUBQ Severe Breakthru Pain (>7) 12/30/19 13:30 01/06/20 13:29 Hydroxyzine HCl (Atarax) 50 mg Q6H PRN ORAL Itching 12/29/19 20:30 01/28/20 20:29 01/02/20 05:13 Insulin Aspart (NovoLOG) Q6HR SUBQ 12/30/19 00:00 03/18/20 00:00 Lansoprazole (Prevacid) 30 mg DAILY ORAL 12/30/19 09:00 01/17/20 08:59 01/02/20 08:39 Metronidazole 100 ml @ 100 mls/hr Q8HR IVPB 12/29/19 22:00 01/04/20 21:59 01/02/20 05:12 Micafungin Sodium 100 mg/Sodium Chloride 110 ml @ 110 mls/hr Q24H IVPB 12/30/19 16:00 01/06/20 15:59 01/01/20 16:37 Miscellaneous Medication (BILINGUAL MEDICAL ASSISTANT Rate Change) 1 ea DAILY PRN MISC rate change 01/01/20 19:42 01/03/20 19:41 Miscellaneous Medication (BILINGUAL MEDICAL ASSISTANT shift volume) 1 ea Q12HR@0700,1900 MISC 01/02/20 07:00 01/04/20 06:59 01/02/20 07:24 Naloxone HCl (Narcan) 0.1 mg Q1M PRN IVP RR<10/min OR SBP<90 mmHg 01/01/20 09:30 03/31/20 09:29 Ondansetron HCl (Zofran) 4 mg Q4H PRN IVP Nausea & Vomiting 12/30/19 21:40 01/29/20 21:39 01/02/20 08:39 Phytonadione (Vitamin K) 10 mg ONCE A WEEK SUBQ 01/01/20 09:00 03/24/20 08:59 01/01/20 08:24 Potassium Chloride/Sodium Chloride 1,000 ml @ 100 mls/hr Q10H IV 01/01/20 16:30 01/22/20 16:29 01/01/20 23:30 Pramipexole (Mirapex) 1 mg TWICE A DAY ORAL 12/30/19 09:00 01/16/20 17:59 01/02/20 08:39 Quetiapine Fumarate (SEROqueL) 200 mg BEDTIME ORAL 12/29/19 21:00 01/31/20 20:59 01/01/20 20:48 Vancomycin HCl (Vanco pharmacy to dose) 1 ea DAILY PRN MISC Per rx protocol 12/31/19 14:00 01/30/20 13:59 Vancomycin HCl 750 mg/Sodium Chloride 250 ml @ 166.667 mls/hr Q12HR@0300,1500 IVPB 12/31/19 15:00 01/05/20 14:59 01/02/20 02:00 Assessment/Plan Assessment/Plan IMPRESSION: 1. Status post re-intubation. 2. Status post extubation yesterday. 3. Status post laparotomy. 4. Ulcerative colitis. 5. GERD. DISCUSSION: Postoperative care per Dr. Mckeon. On TPN. The patient has been extubated successfully. Continue oxygen and pulmonary hygiene. I will follow carefully. Pain control. DVT prophylaxis. GI prophylaxis. Transfer out of ICU. Has persistent leucocytosis Seen by nephrology Onesimo Perales Omar Syed MD Jan 02, 2020 10:48
--- NOTE | 2020-01-02 11:02 | NUR ---
RADIOLOGY DEPT, CHEST X-RAY DONE.-P.DYE
[2020-01-02] MEDS: NS w/KCl 40mEq 1,000 ML IV SCH ×2 (11:09→23:55)
--- NOTE | 2020-01-02 11:30 | Consultation ---
DATE OF CONSULTATION: 01/02/2020 DATE OF ADMISSION: 12/17/2019. CONSULTING PHYSICIAN: Osman Hemphill MD. REFERRING PHYSICIAN: Gio Mckeon MD. REASON FOR CONSULTATION: 1. Acute kidney injury. 2. Elevated BUN. HISTORY OF PRESENT ILLNESS: The patient is a pleasant 59-year-old female with complicated medical history including ulcerative colitis which was treated with diverted ileoanal J-pouch. She had since developed constant progressive pain and bleeding from her J-pouch. She had underwent a total colectomy with an ileoanal J-pouch in 1991. This failed a few years later. 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 J-pouch was left in situ. She presented to [facility] for further evaluation and management. On December 30, 2019, the patient underwent laparotomy with resection of defunctionalized distal small bowel and most of her ileoanal J-pouch with revision of a Narcisa ileostomy. During this course, the patient's creatinine has remained relatively stable between 1.1 to 1.2. However, the BUN has steadily increased today, it is up to 54 from a previous level of approximately 17 within the normal range. The patient is on Intralipid. She is resting comfortably. ALLERGIES: Ampicillin, tetracycline. SOCIAL HISTORY: No tobacco, alcohol, or illicit drug use. PAST SURGICAL HISTORY: As listed above. FAMILY HISTORY: Noncontributory. REVIEW OF SYSTEMS: NEUROLOGIC: The patient feels fatigued, tired. CARDIOVASCULAR: No current chest pain, palpitations, or angina. PULMONARY: No difficulty breathing, productive cough, or sputum. GI/: No change in urine or bowel habits. No nausea, vomiting, or diarrhea. ENDOCRINOLOGY: No night sweats, fevers, or chills. MUSCULOSKELETAL: The patient is feeling weak, tired, and fatigued. LABORATORY DATA: Labs dated January 02, 2020, sodium 136, potassium 4.5, BUN 54, creatinine 1.1, calcium of 8. Hemoglobin 8.3, down from 11.8 on December 29. PHYSICAL EXAMINATION: VITAL SIGNS: Blood pressure 110/57, respiratory rate , pulse 110, temperature 98.9, 100% oxygen saturation on nasal cannula 2 liters. GENERAL: Awake, fatigued, somnolent. HEENT: Extraocular muscles intact. No lymphadenopathy noted. CARDIOVASCULAR: S1 and S2. No rubs or gallops. PULMONARY: Clear to auscultation bilaterally with upper airway rhonchi. ABDOMEN: Nondistended and nontender. EXTREMITIES: Trace edema. Brace noted. ASSESSMENT AND PLAN: 1. Acute kidney injury/elevated BUN. Creatinine is stable. Elevated BUN at this time likely not associated with Intralipid, 5% amino acids. Concern is for possible elevated BUN due to underlying slow gastrointestinal bleed. The patient's hemoglobin has varied and has dropped approximately 3 g over the last three days. Continue to trend the BUN and hemoglobin. The patient is not on steroids, which can be associated with elevated BUN and creatinine disproportion ratio and currently patient does not seem to be volume depleted, which can also lead to a elevated disproportionate BUN to creatinine ratio as such. At this time, we will not bolus the patient with IV fluid. She is already on maintenance rate and we will continue to trend the hemoglobin level along with a BUN and creatinine ratio. 2. Resection of defunctionalized distal small bowel and removal of most of the ileoanal J-pouch. Defer management to Dr. Mckeon. 3. Sepsis. E. coli urinary tract infection. Left leg cellulitis. Antibiotic management per Infectious Diseases. Continue to monitor creatinine carefully as the patient is currently on amikacin 750 mg IV q.36 hours. Continue to monitor levels carefully, dosing per Infectious Diseases. 4. Electrolyte abnormalities. At this time, sodium, potassium, calcium all stable. Continue to follow levels carefully while on maintenance IV fluids. Let me take this opportunity to thank Dr. Mckeon for allowing me to assist in care this patient during hospitalization. Osman Hemphill MD DR: Radha JOB#: [id number] CC:
--- NOTE | 2020-01-02 11:57 | General Progress Note ---
Progress Note Progress Note AVSS with tachycardia decreased Abdomen soft, incision clean, stoma pink with enteric fluid Urine 950 Ileostomy 80 AMIE drain 115 serosang WBC 31,000 Hgb 8.3 BUN 54 jCr 1.1 Albumin 1.7 Nephrology eval. appreciated Imp: Ileus Anemia Plan; continue npo, TPN, Caban, mobilize with PT transfuse 1 unit PRBC STAT transfer to [facility] Gio Mckeon MD Jan 02, 2020 11:57
[2020-01-02] MEDS ORDERED: Rate Change PCA 1 Each MISC PRN (12:00)
[2020-01-02] MEDS ORDERED: PCA HYDROmorphone 1mg/ml 30 ML IV PRN (12:15)
--- NOTE | 2020-01-02 12:19 | Cardiology Report ---
APPROVED REPORT EKG Measurement Heart [id number] <Conclusion> Normal sinus rhythm Normal ECG
--- NOTE | 2020-01-02 13:14 | NUR ---
P.T Note: P.T evaluation completed and tx initiated. Please refer to P.T evaluation for current functional status.
--- NOTE | 2020-01-02 14:00 | NUR ---
NURSE NOTES: MD. CALL HERE TO SEE PT. WAS INFORMED OF REDENSS ON INNER THIGH AND ABDOMEN. NO CHANGE ON RASH KELLEE. WILL PLACE ORDERS.
--- NOTE | 2020-01-02 14:20 | Diagnostic Imaging Report ---
Indication: Reason For Exam: SOB Technique: Single AP view of the chest. Comparison: Chest radiograph dated 12/31/2019 Findings: The cardiomediastinal silhouette is unchanged in appearance. No new airspace consolidation. Stable pulmonary vascular congestion. Demonstration of streaky retrocardiac airspace opacity. No pneumothorax or pleural effusion. Unchanged left PICC. IMPRESSION: No significant change from prior examination.
--- NOTE | 2020-01-02 14:35 | Infectious Diseases Prog Note ---
Assessment/Plan Assessment/Plan ASSESSMENT AND PLAN: 1. e.coli uti, morganella uti, left leg cellulitis, ? reaction/atypical drug rash to aztreonam, allergies - ampicillin, tetracycline s/p surgery on 12/29/19 - significant leukocytosis, ? sepsis vs post-surgical leukocytosis fungemia risk, TPN atelectasis > pna (aspiration/hcap) preliminary intra-abdominal fluid culture, ? abscess - e.coli, s-amikacin elevated Ck noted - ? daptomycin - held - amikacin, flagyl, vancomycin, micafungin - surveillance cultures, abdominal fluid culture with e.coli - monitor labs, leukocytosis, chest x-ray - icu care, mgt per Dr. Mckeon and Dr. Vega - d/w Dr. Mckeon - d/w microbiology 2. skin care per protocol - ? fungal component, on clotrimazole cream 3. 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 4. History of Narcisa ileostomy. 5. History of ulcerative colitis. 6. History of multiple abdominal surgeries. 7. History of cholecystectomy. 8. History of peristomal hernia and mesh. 9. History of colectomy. 10. Continue treatment per Dr. Mckeon and consultants. 11. Allergies to ampicillin, tetracycline. She gets hives with ampicillin. 12. Social history is negative. 13. Family history is noncontributory. 14. MAR is noted. 15. Case was discussed with RN. 16. Case was discussed with Dr. Mckeon. 17. Case was discussed with the patient. Subjective Constitutional: Denies: fever HEENT: Denies: congestion Respiratory: Denies: shortness of breath Cardiovascular: Denies: chest pain Gastrointestinal/Abdominal: Reports: nausea Allergies: Coded Allergies: AMPICILLIN (Verified Allergy, Unknown, 12/17/19) TETRACYCLINE (Verified Allergy, Unknown, 12/17/19) Objective Last 24 Hour Vital Signs Date Time Temp Pulse Resp B/P (MAP) Pulse Ox O2 Delivery O2 Flow Rate FiO2 01/02/20 14:00 106 14 123/68 (86) 100 01/02/20 13:00 107 26 125/69 (87) 99 01/02/20 12:00 98.7 111 24 102/71 (81) 100 01/02/20 12:00 106 01/02/20 12:00 Nasal Cannula 2.0 01/02/20 12:00 110 20 100 01/02/20 11:00 105 14 100/53 (69) 100 01/02/20 10:00 110 13 110/57 (74) 100 01/02/20 09:00 98.9 106 24 136/122 (127) 100 01/02/20 08:00 Nasal Cannula 2.0 01/02/20 08:00 111 01/02/20 08:00 110 20 100 01/02/20 08:00 111 21 125/104 (111) 97 01/02/20 07:40 96 Nasal Cannula 3.0 32 01/02/20 07:00 105 14 115/60 (78) 100 01/02/20 06:00 106 17 119/57 (77) 100 01/02/20 05:00 111 21 123/64 (83) 93 01/02/20 04:00 109 20 100 01/02/20 04:00 Nasal Cannula 2.0 01/02/20 04:00 98.6 109 20 121/62 (81) 99 01/02/20 03:11 114 01/02/20 03:00 111 15 129/69 (89) 100 01/02/20 02:57 111 15 100 01/02/20 02:00 108 17 132/79 (96) 100 01/02/20 01:00 108 15 155/118 (130) 99 01/02/20 00:00 110 14 99 01/02/20 00:00 Nasal Cannula 2.0 01/02/20 00:00 98.6 108 14 115/60 (78) 99 01/01/20 23:14 118 01/01/20 23:00 115 22 139/81 (100) 99 01/01/20 22:00 111 12 125/72 (89) 100 01/01/20 21:00 117 22 119/72 (88) 91 01/01/20 20:00 111 15 99 01/01/20 20:00 Nasal Cannula 2.0 01/01/20 20:00 98.6 113 15 125/60 (81) 99 01/01/20 19:20 114 01/01/20 19:06 98 Nasal Cannula 3.0 32 01/01/20 19:00 117 19 130/67 (88) 99 01/01/20 18:00 111 17 113/74 (87) 100 01/01/20 17:00 119 20 112/73 (86) 97 01/01/20 16:00 117 22 95 01/01/20 16:00 118 35 121/82 (95) 97 01/01/20 16:00 Nasal Cannula 2.0 01/01/20 16:00 117 01/01/20 15:00 116 22 126/74 (91) 100 Height (Feet): 5 Height (Inches): 1.00 Weight (Pounds): 152 General Appearance: no acute distress HEENT: normocephalic, atraumatic, anicteric Respiratory/Chest: lungs clear, normal breath sounds, no respiratory distress, no accessory muscle use Cardiovascular: normal rate, regular rhythm, no gallop/murmur Abdomen: normal bowel sounds, soft, non tender, no organomegaly, non distended Chest x-ray - Procedure: XRAY Chest 1v Indication: Cough Technique: One view of the chest Comparison: none Findings: There is diffuse mild bilateral interstitial disease and central bronchial wall thickening. No focal airspace consolidation. No effusions. Normal heart size Impression: Acuity indeterminate mild interstitial disease. Correlate with clini teresa findings. No focal infiltrates CT abdomen and pelvis: Impression: Postsurgical changes, as described, including right lower quadrant simple ileostomy, prior total colectomy, and J-pouch. There is abundant anterior pelvic apparent defunctionalized small bowel which appears to be in continuity with and ileoanal J-pouch remnant. Most likely, this just represents old isolated small bowel, but the possibility of any of this representing either tumor or abscess is not completely excludable. Small parastomal hernia within the right lower quadrant ileostomy. This appears to be nonobstructive. Equivocal mild wall thickening of left upper quadrant jejunal loops. Enteritis is possible and correlation with clinical findings is recommended Age-indeterminate L2 vertebral body compression fracture deformity. Suspect old. Consider MRI if clinically relevant Prior cholecystectomy Inferior vena cava filter Findings discussed by phone Chest x-ray - 12/29/19 - FINDINGS: Lungs: Retrocardiac atelectasis versus infiltrate. No consolidation or interstitial edema. Pleural space: Trace left pleural effusion. Heart: Unremarkable. No cardiomegaly. Bones/joints: Unremarkable. Tubes, lines and devices: Endotracheal tube terminates 3 cm above the kyung. Left upper extremity PICC line terminates within the SVC. IMPRESSION: 1. Endotracheal tube terminates 3 cm above the kyung. 2. Left upper extremity PICC line terminates within the SVC. 3. Retrocardiac atelectasis versus infiltrate. 4. Trace left pleural effusion. Chest x-ray - 12/31/19 - Procedure: XRAY Chest 1v Procedure: XRAY Chest 1v Reason for study: Shortness of breath. Comparison films: 12/29/2019. FINDINGS: Endotracheal tube has been removed. Left PICC line remains in place. There is slight worsening of congestion and edema. Cardiac and mediastinal silhouette are within normal limits. CP angles are sharp. The bony thorax appear unremarkable. IMPRESSION: Slight worsening of congestion and edema. Laboratory Tests Test 01/01/20 15:45 01/01/20 18:00 01/01/20 18:30 01/02/20 02:00 Amikacin Level Trough 4.8 ug/mL (4.0-8.0) Urine Color Pale yellow Urine Appearance Clear Urine pH 5 (4.5-8.0) Urine Specific [place] 1.015 (1.005-1.035) Urine Protein 2+ (NEGATIVE) H Urine Glucose (UA) Negative (NEGATIVE) Urine Ketones Negative (NEGATIVE) Urine Blood 3+ (NEGATIVE) H Urine Nitrite Negative (NEGATIVE) Urine Bilirubin Negative (NEGATIVE) Urine Urobilinogen Normal MG/DL (0.0-1.0) Urine Leukocyte Esterase 1+ (NEGATIVE) H Urine RBC 5-10 /HPF (0 - 2) H Urine WBC 2-4 /HPF (0 - 2) Urine Squamous Epithelial Cells Few /LPF (NONE/OCC) Urine Bacteria Few /HPF (NONE) POC Whole Blood Glucose Pending Vancomycin Level Trough 15.1 ug/mL (5.0-12.0) H Test 01/02/20 04:30 01/02/20 05:01 White Blood Count 31.1 K/UL (4.8-10.8) *H Red Blood Count 2.75 M/UL (4.20-5.40) L Hemoglobin 8.3 G/DL (12.0-16.0) L Hematocrit 26.0 % (37.0-47.0) L Mean Corpuscular Volume 94 FL (80-99) Mean Corpuscular Hemoglobin 30.2 PG (27.0-31.0) Mean Corpuscular Hemoglobin Concent 32.0 G/DL (32.0-36.0) Red Cell Distribution Width 15.8 % (11.6-14.8) H Platelet Count 241 K/UL (150-450) Mean Platelet Volume 6.3 FL (6.5-10.1) L Neutrophils (%) (Auto) % (45.0-75.0) Lymphocytes (%) (Auto) % (20.0-45.0) Monocytes (%) (Auto) % (1.0-10.0) Eosinophils (%) (Auto) % (0.0-3.0) Basophils (%) (Auto) % (0.0-2.0) Differential Total Cells Counted 100 Neutrophils % (Manual) 89 % (45-75) H Lymphocytes % (Manual) 4 % (20-45) L Monocytes % (Manual) 4 % (1-10) Eosinophils % (Manual) 3 % (0-3) Basophils % (Manual) 0 % (0-2) Band Neutrophils 0 % (0-8) Platelet Estimate Adequate Platelet Morphology Normal Hypochromasia 1+ Anisocytosis 1+ Sodium Level 136 MMOL/L (136-145) Potassium Level 4.5 MMOL/L (3.5-5.1) Chloride Level 105 MMOL/L (98-107) Carbon Dioxide Level 23 MMOL/L (21-32) Anion Gap 8 mmol/L (5-15) Blood Urea Nitrogen 54 mg/dL (7-18) H Creatinine 1.1 MG/DL (0.55-1.30) Estimat Glomerular Filtration Rate 50.7 mL/min (>60) Glucose Level 116 MG/DL (74-106) H Calcium Level 8.0 MG/DL (8.5-10.1) L Phosphorus Level 3.6 MG/DL (2.5-4.9) Magnesium Level 1.8 MG/DL (1.8-2.4) Total Bilirubin 0.3 MG/DL (0.2-1.0) Aspartate Amino Transf (AST/SGOT) 81 U/L (15-37) H Alanine Aminotransferase (ALT/SGPT) 47 U/L (12-78) Alkaline Phosphatase 106 U/L (46-116) Total Protein 5.2 G/DL (6.4-8.2) L Albumin 1.7 G/DL (3.4-5.0) L Globulin 3.5 g/dL Albumin/Globulin Ratio 0.5 (1.0-2.7) L POC Whole Blood Glucose 90 MG/DL (74-106) Current Medications Medications (Trade) Dose Ordered Sig/Margarette Route PRN Reason Start Time Stop Time Status Last Admin Dose Admin Acetaminophen/ Butalbital/ Caffeine (Fioricet) 1 tab Q6H PRN ORAL headache 12/29/19 20:30 01/18/20 20:29 12/30/19 09:04 Amikacin Protocol (Amikacin pharmacy to dose) 1 ea DAILY PRN MISC Per rx protocol 12/29/19 20:30 01/28/20 20:29 Amikacin Sulfate 750 mg/Sodium Chloride 113 ml @ 113 mls/hr Q36H IV 12/31/19 05:00 01/05/20 16:59 01/01/20 17:57 Chlorhexidine Gluconate (Patti-Hex 2%) 1 applic DAILY@1999 TOPIC 12/29/19 20:30 03/28/20 20:29 01/01/20 19:41 Clotrimazole (Lotrimin) 1 applic BID TOPIC 12/30/19 09:00 03/20/20 10:29 01/02/20 08:39 Dextrose 1,000 ml @ 0 mls/hr Q24H PRN IV PN interrupted or unavailable 12/29/19 20:30 01/28/20 20:29 Dextrose (Dextrose 50%) 25 ml Q30M PRN IV Hypoglycemia 12/29/19 20:30 03/17/20 19:59 Dextrose (Dextrose 50%) 50 ml Q30M PRN IV Hypoglycemia 12/29/19 20:30 03/17/20 19:59 Diphenhydramine HCl (Benadryl) 25 mg Q4H PRN IVP Itching 12/30/19 21:50 01/29/20 21:49 01/02/20 08:39 Diphenhydramine HCl (Benadryl) 25 mg Q6H PRN ORAL Itching 12/29/19 20:30 01/19/20 20:29 12/31/19 17:13 Fat Emulsion Intravenous 240 ml/Amino Acids/ Electrolytes/ Dextrose 1,920 ml @ 80 mls/hr Q24H IV 12/30/19 20:00 01/27/20 19:59 01/01/20 20:49 Hydromorphone HCl 30 ml @ 0 mls/hr Q24H PRN IV For Pain 01/02/20 12:15 01/04/20 12:14 Hydromorphone HCl (Dilaudid) 1 mg Q3H PRN SUBQ Severe Breakthru Pain (>7) 12/30/19 13:30 01/06/20 13:29 Hydroxyzine HCl (Atarax) 50 mg Q6H PRN ORAL Itching 12/29/19 20:30 01/28/20 20:29 01/02/20 12:25 Insulin Aspart (NovoLOG) Q6HR SUBQ 12/30/19 00:00 03/18/20 00:00 Lansoprazole (Prevacid) 30 mg DAILY ORAL 12/30/19 09:00 01/17/20 08:59 01/02/20 08:39 Metronidazole 100 ml @ 100 mls/hr Q8HR IVPB 12/29/19 22:00 01/04/20 21:59 01/02/20 05:12 Micafungin Sodium 100 mg/Sodium Chloride 110 ml @ 110 mls/hr Q24H IVPB 12/30/19 16:00 01/06/20 15:59 01/01/20 16:37 Miscellaneous Medication (COLLAR STITCHER Rate Change) 1 ea DAILY PRN MISC rate change 01/02/20 12:00 01/04/20 11:59 Miscellaneous Medication (COLLAR STITCHER shift volume) 1 ea Q12HR@0700,1900 MISC 01/02/20 19:00 01/04/20 18:59 Naloxone HCl (Narcan) 0.1 mg Q1M PRN IVP RR<10/min OR SBP<90 mmHg 01/01/20 09:30 03/31/20 09:29 Ondansetron HCl (Zofran) 4 mg Q4H PRN IVP Nausea & Vomiting 12/30/19 21:40 01/29/20 21:39 01/02/20 08:39 Phytonadione (Vitamin K) 10 mg ONCE A WEEK SUBQ 01/01/20 09:00 03/24/20 08:59 01/01/20 08:24 Potassium Chloride/Sodium Chloride 1,000 ml @ 100 mls/hr Q10H IV 01/01/20 16:30 01/22/20 16:29 01/02/20 11:09 Pramipexole (Mirapex) 1 mg TWICE A DAY ORAL 12/30/19 09:00 01/16/20 17:59 01/02/20 08:39 Quetiapine Fumarate (SEROqueL) 200 mg BEDTIME ORAL 12/29/19 21:00 01/31/20 20:59 01/01/20 20:48 Vancomycin HCl (Vanco pharmacy to dose) 1 ea DAILY PRN MISC Per rx protocol 12/31/19 14:00 01/30/20 13:59 Vancomycin HCl 750 mg/Sodium Chloride 250 ml @ 166.667 mls/hr Q12HR@0300,1500 IVPB 12/31/19 15:00 01/05/20 14:59 01/02/20 02:00 Kevan Burgess MD Jan 02, 2020 14:35
--- NOTE | 2020-01-02 15:07 | NUR ---
CASE MANAGEMENT:REVIEW 01/02/20 SI; S/P INTUBATION AND EXTUBATION S/P REVISION OF DEFUNCTIONALIZED SMALL BOWEL AND J POUCH AND REVISION OF ILEOSTOMY 12/28 BLEEDING FROM ILEOANAL J POUCH . POUCHITIS. BLE CELLULITIS. 98.9 106 24 136/122 100% ON 2L NC WBC 31.1 H/H 8.3/26.0 BUN 54 CA+ 8.0 AST 81 ALB 1.7 VANCO TROUGH 15.1 IS; BLOOD TX X1 IV AMIKACIN Q36 IV VANCOMYCIN BID ATARAX PO Q6 PRN TPN IV Q24 SEROQUEL PO QHS CHIEF CREW SCHEDULER DILAUDID PROTOCOL \: TRANSFER TO MED SURGICAL UNIT ONCE BLOOD TX COMPLETE TRANSFER TO ICU STATUS POST SURGERY DCP; FROM HOME PLAN; CONT RESPIRATORY CARE ~O2 SAT LOW CONT TO WORK WITH PT FOR STRENGTH IMPROVEMENT Addendum: 01/02/20 at 1514 by TRACI MCGOWAN LVN INTERQUAL MET ACUTE
--- NOTE | 2020-01-02 15:15 | NUR ---
NURSE NOTES: TRANSFUSING 04/16 UNITS PRBC'S. TEMP 98.3, HR 103, BP 108/71. WITNESSED WITH SECOND R.N. WILL MONITOR PT CLOSELY. PT EDUCATED ON S/S TO REPORT. PT STATES UNDERSTANDING.
[2020-01-02] MEDS: Micafungin 100 MG in NS 110 ML IVPB SCH (17:15)
[2020-01-02] MEDS: PCA shift volume MISC SCH (19:04)
--- NOTE | 2020-01-02 19:07 | NUR ---
TRANSFER TO FLOOR: Patient transferred to [facility] c.n, per . Report given to . Belongings and medications given to r.n . Family and or S/O informed of transfer.yes, informed by pt on personal phone.
--- NOTE | 2020-01-02 19:35 | NUR ---
NURSE NOTES: Received report from Laney KAYE. Rounding is done. Patient is a/o x3-4. Denied any pain at this time with PATTERN DESIGNER. Checked PATTERN DESIGNER setting. No distress at this time and Breathing is even and unlabored with NC 2L/MIN. Narcisa Ileo is in place. AMIE is in place and draining to gravity. PICC line is in place and IV fluid is running. Redness on back d/t scratches and allergy for antibiotics previously. TPN will running as ordered. Bed is on alarm, locked, and lowest position. Call light within reach. Will continue to monitor.
[2020-01-02] MEDS ORDERED: NS 275ml ONE (20:01)
[2020-01-02] MEDS: Dyna-Hex 2% Top Sol 2oz TOPIC SCH (21:36)
[2020-01-02] MEDS: QUEtiapine 200mg tab ORAL SCH (21:36)
[2020-01-02] MEDS: Fat Emulsion Iv 20% 240 ML in Tpn 1,680 ML IV SCH (21:40)
[2020-01-03] VITALS: BP 134/70
[2020-01-03 04:00] VITALS: BP 134/78
[2020-01-03] MEDS: Amikacin 750 MG in NS 110 ML IV SCH (05:22)
[2020-01-03] MEDS: NovoLOG Insulin Flexpen SUBQ SCH ×3 (05:46→17:57)
[2020-01-03 06:21] LABS: BASOPHILS % (AUTO) 1.2 % (0.0-2.0); HEMATOCRIT 27.7 % (37.0-47.0); HEMOGLOBIN 9.3 G/DL (12.0-16.0); LYMPHOCYTES % (AUTO) 7.9 % (20.0-45.0); MEAN CORPUSCULAR VOLUME 91 FL (80-99); MONOCYTES % (AUTO) 6.5 % (1.0-10.0); NEUTROPHILS % (AUTO) 80.4 % (45.0-75.0); PLATELET COUNT 252 K/UL (150-450); RED BLOOD COUNT 3.04 M/UL (4.20-5.40); RED CELL DISTRIBUTION WIDTH 15.9 % (11.6-14.8); WHITE BLOOD COUNT 15.9 K/UL (4.8-10.8)
[2020-01-03 06:55] LABS: ALBUMIN 1.6 G/DL (3.4-5.0); ALBUMIN/GLOBULIN RATIO 0.5 (1.0-2.7); BILIRUBIN,TOTAL 0.4 MG/DL (0.2-1.0); CALCIUM 7.8 MG/DL (8.5-10.1); PHOSPHORUS 3.7 MG/DL (2.5-4.9); POTASSIUM 4.3 MMOL/L (3.5-5.1)
--- NOTE | 2020-01-03 07:20 | NUR ---
NURSE HAND-OFF: Important Events on Shift:[HEART RATE] Patient Status: [STABLE] Diet: [NPO] Pending Orders: [N] Pending Results/Labs:[N] Pending MD notification:[N] Latest Vital Signs: Temperature 99.0 , Pulse 105 , B/P 134 /78 , Respiratory Rate 18 , O2 SAT 98 , Nasal Cannula, O2 Flow Rate 2.0 . Vital Sign Comment: [STABLE] Latest Jimenez Fall Score: 35 Fall Risk: Medium Risk Safety Measures: Call light Within Reach, Bed Alarm Zone 1, Side Rails Side Rails x2, Bed position Low and Locked. Fall Precautions: Yellow Socks Report given to [AV RN].
[2020-01-03] MEDS: PCA shift volume MISC SCH ×2 (07:27→19:00)
--- NOTE | 2020-01-03 07:39 | NUR ---
NURSE NOTES: Received pt from VARGAS Miller, pt was sleeping no acute distress. pain management with RETAIL LOSS PREVENTION INVESTIGATOR, F/C patent, call, call light w/in reach.
[2020-01-03 08:00] VITALS: BP_SYST 132; BP_DIAS 72; BP_DIAS 76
[2020-01-03] MEDS: Pramipexole 0.5mg tab ORAL SCH ×2 (09:14→17:07)
[2020-01-03] MEDS: NS w/KCl 40mEq 1,000 ML IV SCH (09:15)
--- NOTE | 2020-01-03 09:43 | NUR ---
NURSE NOTES: Spoke to regarding diet order and new order received. Order read back and carried out.
--- NOTE | 2020-01-03 09:57 | General Progress Note ---
Progress Note Progress Note AVSS Tachycardia down to 105. Feeling better Abdomen soft, serous drainage from upper portion of incision Incision clean, no disruption, stoma pink Urine 2385 Ileostomy 580 AMIE 25serosang WBC down 15,900 Hgb 9.3 after 1 unit PRBC yesterday BUN down 39 Cr 1.0 albumin 1.6 Imp: resolving ileus malnutrition present on admission wound drainage Plan: continue npo, TPN, [facility] wound care and C&S Gio Mckeon MD Jan 03, 2020 09:57
[2020-01-03] MEDS ORDERED: Rate Change PCA 1 Each MISC PRN (10:00)
[2020-01-03] MEDS ORDERED: PCA HYDROmorphone 1mg/ml 30 ML IV PRN (11:00)
[2020-01-03] MEDS: HydrOXYzine tab 25mg tab ORAL PRN ×2 (11:41→20:24)
--- NOTE | 2020-01-03 11:54 | Pulmonology Progress Note ---
Subjective Interval Events: Extubated ; doing well; now in 3E Constitutional: Denies: fever HEENT: Repors: no symptoms Respiratory: Reports: no symptoms Cardiovascular: Reports: no symptoms Gastrointestinal/Abdominal: Reports: nausea Genitourinary: Reports: no symptoms Psychiatric: Reports: other - NA Skin: Reports: rash - improved, no new rash Musculoskeletal: Reports: pain - controlled Allergies: Coded Allergies: AMPICILLIN (Verified Allergy, Unknown, 12/17/19) TETRACYCLINE (Verified Allergy, Unknown, 12/17/19) Objective Last 24 Hour Vital Signs Date Time Temp Pulse Resp B/P (MAP) Pulse Ox O2 Delivery O2 Flow Rate FiO2 01/03/20 09:27 98 Nasal Cannula 2.0 28 01/03/20 08:00 105 18 98 01/03/20 08:00 99.0 105 18 132/76 (94) 98 01/03/20 07:56 Nasal Cannula 2.0 01/03/20 04:00 105 18 98 01/03/20 04:00 99.0 105 18 134/78 (96) 98 01/03/20 00:00 99.4 106 19 134/70 (91) 99 01/03/20 00:00 106 19 99 01/02/20 21:00 Nasal Cannula 2.0 01/02/20 20:19 96 Nasal Cannula 2.0 28 01/02/20 20:00 99.5 102 18 127/67 (87) 95 01/02/20 20:00 102 18 95 01/02/20 18:18 100 16 124/64 (84) 100 01/02/20 18:00 104 21 116/57 (76) 100 01/02/20 17:00 105 16 117/69 (85) 100 01/02/20 16:36 107 15 117/69 (85) 100 01/02/20 16:00 98.8 107 15 117/66 (83) 100 01/02/20 16:00 Nasal Cannula 2.0 01/02/20 16:00 103 20 100 01/02/20 15:31 108 20 120/61 (80) 100 01/02/20 15:00 107 17 111/61 (78) 100 01/02/20 14:00 106 14 123/68 (86) 100 01/02/20 13:00 107 26 125/69 (87) 99 01/02/20 12:00 98.7 111 24 102/71 (81) 100 01/02/20 12:00 106 01/02/20 12:00 Nasal Cannula 2.0 01/02/20 12:00 110 20 100 Intake and Output 01/02/20 01/03/20 19:00 07:00 Intake Total 2310.001 ml 2330.000 ml Output Total 1230 ml 1760 ml Balance 1080.001 ml 570.000 ml IV Total 2310.001 ml 2330.000 ml Output Urine Total 785 ml 1600 ml Drainage Total 15 ml 10 ml Other 430 ml 150 ml General Appearance: no acute distress Respiratory: chest wall non-tender Cardiovascular: normal peripheral pulses Abdomen: soft, non tender Laboratory Tests 01/02/20 23:49: POC Whole Blood Glucose 95 01/03/20 05:10: White Blood Count 15.9H, Red Blood Count 3.04L, Hemoglobin 9.3L, Hematocrit 27.7L, Mean Corpuscular Volume 91, Mean Corpuscular Hemoglobin 30.5, Mean Corpuscular Hemoglobin Concent 33.5, Red Cell Distribution Width 15.9H, Platelet Count 252, Mean Platelet Volume 6.7, Neutrophils (%) (Auto) 80.4H, Lymphocytes (%) (Auto) 7.9L, Monocytes (%) (Auto) 6.5, Eosinophils (%) (Auto) 4.0H, Basophils (%) (Auto) 1.2, Sodium Level 138, Potassium Level 4.3, Chloride Level 105, Carbon Dioxide Level 24, Anion Gap 10, Blood Urea Nitrogen 39H, Creatinine 1.0, Estimat Glomerular Filtration Rate 56.5, Glucose Level 101, Calcium Level 7.8L, Phosphorus Level 3.7, Magnesium Level 1.8, Total Bilirubin 0.4, Aspartate Amino Transf (AST/SGOT) 68H, Alanine Aminotransferase (ALT/SGPT) 50, Alkaline Phosphatase 113, Total Protein 5.1L, Albumin 1.6L, Globulin 3.5, Albumin/Globulin Ratio 0.5L 01/03/20 05:24: POC Whole Blood Glucose 106 01/03/20 11:37: POC Whole Blood Glucose [Pending] Current Medications Medications (Trade) Dose Ordered Sig/Margarette Route PRN Reason Start Time Stop Time Status Last Admin Dose Admin Acetaminophen/ Butalbital/ Caffeine (Fioricet) 1 tab Q6H PRN ORAL headache 12/29/19 20:30 01/18/20 20:29 12/30/19 09:04 Amikacin Protocol (Amikacin pharmacy to dose) 1 ea DAILY PRN MISC Per rx protocol 12/29/19 20:30 01/28/20 20:29 Amikacin Sulfate 750 mg/Sodium Chloride 113 ml @ 113 mls/hr Q36H IV 12/31/19 05:00 01/05/20 16:59 01/03/20 05:22 Chlorhexidine Gluconate (Patti-Hex 2%) 1 applic DAILY@1999 TOPIC 12/29/19 20:30 03/28/20 20:29 01/02/20 21:36 Clotrimazole (Lotrimin) 1 applic BID TOPIC 12/30/19 09:00 03/20/20 10:29 01/03/20 09:16 Dextrose 1,000 ml @ 0 mls/hr Q24H PRN IV PN interrupted or unavailable 12/29/19 20:30 01/28/20 20:29 Dextrose (Dextrose 50%) 25 ml Q30M PRN IV Hypoglycemia 12/29/19 20:30 03/17/20 19:59 Dextrose (Dextrose 50%) 50 ml Q30M PRN IV Hypoglycemia 12/29/19 20:30 03/17/20 19:59 Diphenhydramine HCl (Benadryl) 25 mg Q4H PRN IVP Itching 12/30/19 21:50 01/29/20 21:49 01/02/20 21:21 Diphenhydramine HCl (Benadryl) 25 mg Q6H PRN ORAL Itching 12/29/19 20:30 01/19/20 20:29 01/03/20 10:01 Fat Emulsion Intravenous 240 ml/Amino Acids/ Electrolytes/ Dextrose 1,920 ml @ 80 mls/hr Q24H IV 12/30/19 20:00 01/27/20 19:59 01/02/20 21:40 Hydromorphone HCl 30 ml @ 0 mls/hr Q24H PRN IV For Pain 01/03/20 11:00 01/05/20 10:59 Hydromorphone HCl (Dilaudid) 1 mg Q3H PRN SUBQ Severe Breakthru Pain (>7) 12/30/19 13:30 01/06/20 13:29 Hydroxyzine HCl (Atarax) 50 mg Q6H PRN ORAL Itching 01/02/20 19:15 01/28/20 20:29 01/03/20 11:41 Insulin Aspart (NovoLOG) Q6HR SUBQ 12/30/19 00:00 03/18/20 00:00 Lansoprazole (Prevacid) 30 mg DAILY ORAL 12/30/19 09:00 01/17/20 08:59 01/03/20 09:14 Metronidazole 100 ml @ 100 mls/hr Q8HR IVPB 01/02/20 22:00 01/08/20 21:59 01/03/20 06:26 Micafungin Sodium 100 mg/Sodium Chloride 110 ml @ 110 mls/hr Q24H IVPB 12/30/19 16:00 01/06/20 15:59 01/02/20 17:15 Miscellaneous Medication (SEISMOGRAPH OPERATOR Rate Change) 1 ea DAILY PRN MISC rate change 01/03/20 10:00 01/05/20 09:59 Miscellaneous Medication (SEISMOGRAPH OPERATOR shift volume) 1 ea Q12HR@0700,1900 MISC 01/02/20 19:00 01/04/20 18:59 01/03/20 07:27 Naloxone HCl (Narcan) 0.1 mg Q1M PRN IVP RR<10/min OR SBP<90 mmHg 01/01/20 09:30 03/31/20 09:29 Ondansetron HCl (Zofran) 4 mg Q4H PRN IVP Nausea & Vomiting 12/30/19 21:40 01/29/20 21:39 01/02/20 21:21 Phytonadione (Vitamin K) 10 mg ONCE A WEEK SUBQ 01/01/20 09:00 03/24/20 08:59 01/01/20 08:24 Potassium Chloride/Sodium Chloride 1,000 ml @ 100 mls/hr Q10H IV 01/01/20 16:30 01/22/20 16:29 01/03/20 09:15 Pramipexole (Mirapex) 1 mg TWICE A DAY ORAL 12/30/19 09:00 01/16/20 17:59 01/03/20 09:14 Quetiapine Fumarate (SEROqueL) 200 mg BEDTIME ORAL 12/29/19 21:00 01/31/20 20:59 01/02/20 21:36 Vancomycin HCl (Vanco pharmacy to dose) 1 ea DAILY PRN MISC Per rx protocol 12/31/19 14:00 01/30/20 13:59 Vancomycin HCl 750 mg/Sodium Chloride 250 ml @ 166.667 mls/hr Q12HR@0300,1500 IVPB 12/31/19 15:00 01/05/20 14:59 01/03/20 03:11 Assessment/Plan Assessment/Plan IMPRESSION: 1. Status post re-intubation. 2. Status post extubation yesterday. 3. Status post laparotomy. 4. Ulcerative colitis. 5. GERD. DISCUSSION: Postoperative care per Dr. Mckeon. On TPN. The patient has been extubated successfully. Continue oxygen and pulmonary hygiene. I will follow carefully. Pain control. DVT prophylaxis. GI prophylaxis. Transferred out of ICU. Has persistent leucocytosis Seen by nephrology Onesimo Perales Omar Syed MD Jan 03, 2020 11:54
[2020-01-03 12:00] VITALS: BP 126/67
[2020-01-03] MEDS ORDERED: Tubing Blood Filter IV ONE (12:08)
[2020-01-03] MEDS ORDERED: NS 275ml ONE (12:08)
[2020-01-03 16:00] VITALS: BP 127/63
--- NOTE | 2020-01-03 16:00 | NUR ---
NURSE NOTES: changed dressing and sent culture to lab
--- NOTE | 2020-01-03 16:25 | Nephrology Progress Note ---
Assessment/Plan Assessment/Plan: A/P 1) PATI- elevated BUN - resolved. Will DC IVFs - appreciate consult - BUN now 39 and Cr 1 Appreciate consult. IVFs stopped. Will sign off today Subjective Date patient seen: Jan 03, 2020 Time patient seen: 16:23 ROS Limited/Unobtainable: No Allergies: Coded Allergies: AMPICILLIN (Verified Allergy, Unknown, 12/17/19) TETRACYCLINE (Verified Allergy, Unknown, 12/17/19) Subjective Patient feeling better Objective Last 24 Hour Vital Signs Date Time Temp Pulse Resp B/P (MAP) Pulse Ox O2 Delivery O2 Flow Rate FiO2 01/03/20 12:00 106 18 98 01/03/20 12:00 97.6 106 18 126/67 (86) 98 01/03/20 09:27 98 Nasal Cannula 2.0 28 01/03/20 08:00 105 18 98 01/03/20 08:00 99.0 105 18 132/76 (94) 98 01/03/20 07:56 Nasal Cannula 2.0 01/03/20 04:00 105 18 98 01/03/20 04:00 99.0 105 18 134/78 (96) 98 01/03/20 00:00 99.4 106 19 134/70 (91) 99 01/03/20 00:00 106 19 99 01/02/20 21:00 Nasal Cannula 2.0 01/02/20 20:19 96 Nasal Cannula 2.0 28 01/02/20 20:00 99.5 102 18 127/67 (87) 95 01/02/20 20:00 102 18 95 01/02/20 18:18 100 16 124/64 (84) 100 01/02/20 18:00 104 21 116/57 (76) 100 01/02/20 17:00 105 16 117/69 (85) 100 01/02/20 16:36 107 15 117/69 (85) 100 Intake and Output 01/02/20 01/03/20 18:59 06:59 Intake Total 2490.001 ml 2330.000 ml Output Total 1355 ml 1760 ml Balance 1135.001 ml 570.000 ml IV Total 2490.001 ml 2330.000 ml Output Urine Total 910 ml 1600 ml Drainage Total 15 ml 10 ml Other 430 ml 150 ml Laboratory Tests 01/02/20 23:49: POC Whole Blood Glucose 95 01/03/20 05:10: White Blood Count 15.9H, Red Blood Count 3.04L, Hemoglobin 9.3L, Hematocrit 27.7L, Mean Corpuscular Volume 91, Mean Corpuscular Hemoglobin 30.5, Mean Corpuscular Hemoglobin Concent 33.5, Red Cell Distribution Width 15.9H, Platelet Count 252, Mean Platelet Volume 6.7, Neutrophils (%) (Auto) 80.4H, Lymphocytes (%) (Auto) 7.9L, Monocytes (%) (Auto) 6.5, Eosinophils (%) (Auto) 4.0H, Basophils (%) (Auto) 1.2, Sodium Level 138, Potassium Level 4.3, Chloride Level 105, Carbon Dioxide Level 24, Anion Gap 10, Blood Urea Nitrogen 39H, Creatinine 1.0, Estimat Glomerular Filtration Rate 56.5, Glucose Level 101, Calcium Level 7.8L, Phosphorus Level 3.7, Magnesium Level 1.8, Total Bilirubin 0.4, Aspartate Amino Transf (AST/SGOT) 68H, Alanine Aminotransferase (ALT/SGPT) 50, Alkaline Phosphatase 113, Total Protein 5.1L, Albumin 1.6L, Globulin 3.5, Albumin/Globulin Ratio 0.5L 01/03/20 05:24: POC Whole Blood Glucose 106 01/03/20 11:37: POC Whole Blood Glucose [Pending] Height (Feet): 5 Height (Inches): 1.00 Weight (Pounds): 152 General Appearance: no apparent distress, alert EENT: normal ENT inspection Neck: normal alignment Cardiovascular: normal rate, regular rhythm Respiratory/Chest: lungs clear, normal breath sounds Abdomen: non tender Osman Hemphill MD Jan 03, 2020 16:25
[2020-01-03] MEDS: Micafungin 100 MG in NS 110 ML IVPB SCH (17:07)
--- NOTE | 2020-01-03 17:36 | Infectious Diseases Prog Note ---
Assessment/Plan Assessment/Plan ASSESSMENT AND PLAN: 1. e.coli uti, morganella uti, left leg cellulitis, ? reaction/atypical drug rash to aztreonam, allergies - ampicillin, tetracycline s/p surgery on 12/29/19 - significant leukocytosis, ? sepsis vs post-surgical leukocytosis fungemia risk, TPN atelectasis vs pna (aspiration/hcap) intra-abdominal fluid culture, ? abscess - e.coli, s-amikacin elevated Ck noted - ? daptomycin - held - f/u ck ordered wound drainage per surgery note - ? wound infection - amikacin, flagyl, vancomycin, micafungin - day # 4 post-op - f/u on wound culture - monitor labs, leukocytosis, chest x-ray - clinically improved, wbc trending downward - d/w Dr. Mckeon - d/w microbiology - d/w RN 2. skin care per protocol - ? fungal component, on clotrimazole cream 3. 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 4. History of Narcisa ileostomy. 5. History of ulcerative colitis. 6. History of multiple abdominal surgeries. 7. History of cholecystectomy. 8. History of peristomal hernia and mesh. 9. History of colectomy. 10. Continue treatment per Dr. Mckeon and consultants. 11. Allergies to ampicillin, tetracycline. She gets hives with ampicillin. 12. Social history is negative. 13. Family history is noncontributory. 14. MAR is noted. 15. Case was discussed with RN. 16. Case was discussed with Dr. Mckeon. 17. Case was discussed with the patient. Subjective Constitutional: Reports: fatigue; Denies: fever HEENT: Denies: congestion Respiratory: Denies: shortness of breath Cardiovascular: Denies: chest pain Gastrointestinal/Abdominal: Denies: nausea, vomiting Genitourinary: Reports: other - + zheng - urine slt cloudy Neurologic: Denies: headache Psychiatric: Denies: depression Skin: Reports: rash - stable, some pruritis Hematologic: Denies: bleeding Musculoskeletal: Denies: pain Allergies: Coded Allergies: AMPICILLIN (Verified Allergy, Unknown, 12/17/19) TETRACYCLINE (Verified Allergy, Unknown, 12/17/19) Objective Last 24 Hour Vital Signs Date Time Temp Pulse Resp B/P (MAP) Pulse Ox O2 Delivery O2 Flow Rate FiO2 01/03/20 12:00 106 18 98 01/03/20 12:00 97.6 106 18 126/67 (86) 98 01/03/20 09:27 98 Nasal Cannula 2.0 28 01/03/20 08:00 105 18 98 01/03/20 08:00 99.0 105 18 132/76 (94) 98 01/03/20 07:56 Nasal Cannula 2.0 01/03/20 04:00 105 18 98 01/03/20 04:00 99.0 105 18 134/78 (96) 98 01/03/20 00:00 99.4 106 19 134/70 (91) 99 01/03/20 00:00 106 19 99 01/02/20 21:00 Nasal Cannula 2.0 01/02/20 20:19 96 Nasal Cannula 2.0 28 01/02/20 20:00 99.5 102 18 127/67 (87) 95 01/02/20 20:00 102 18 95 01/02/20 18:18 100 16 124/64 (84) 100 01/02/20 18:00 104 21 116/57 (76) 100 Height (Feet): 5 Height (Inches): 1.00 Weight (Pounds): 152 General Appearance: no acute distress HEENT: anicteric, mucous membranes moist Respiratory/Chest: lungs clear, normal breath sounds, no respiratory distress, no accessory muscle use Cardiovascular: normal rate, regular rhythm, no gallop/murmur, no JVD Abdomen: normal bowel sounds, soft, non tender, no organomegaly, non distended, other - incsional wound drainage per surgery notes Genitourinary: other - + zheng - urine slt cloudy Extremities: no cyanosis Skin: rash - stable Neurologic/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 No focal airspace consolidation. No effusions. Normal heart size Impression: Acuity indeterminate mild interstitial disease. Correlate with clinical findings. No focal infiltrates CT abdomen and pelvis: Impression: Postsurgical changes, as described, including right lower quadrant simple ileostomy, prior total colectomy, and J-pouch. There is abundant anterior pelvic apparent defunctionalized small bowel which appears to be in continuity with and ileoanal J-pouch remnant. Most likely, this just represents old isolated small bowel, but the possibility of any of this representing either tumor or abscess is not completely excludable. Small parastomal hernia within the right lower quadrant ileostomy. This appears to be nonobstructive. Equivocal mild wall thickening of left upper quadrant jejunal loops. Enteritis is possible and correlation with clinical findings is recommended Age-indeterminate L2 vertebral body compression fracture deformity. Suspect old. Consider MRI if clinically relevant Prior cholecystectomy Inferior vena cava filter Findings discussed by phone Chest x-ray - 12/29/19 - FINDINGS: Lungs: Retrocardiac atelectasis versus infiltrate. No consolidation or interstitial edema. Pleural space: Trace left pleural effusion. Heart: Unremarkable. No cardiomegaly. Bones/joints: Unremarkable. Tubes, lines and devices: Endotracheal tube terminates 3 cm above the kyung. Left upper extremity PICC line terminates within the SVC. IMPRESSION: 1. Endotracheal tube terminates 3 cm above the kyung. 2. Left upper extremity PICC line terminates within the SVC. 3. Retrocardiac atelectasis versus infiltrate. 4. Trace left pleural effusion. Chest x-ray - 12/31/19 - Procedure: XRAY Chest 1v Procedure: XRAY Chest 1v Reason for study: Shortness of breath. Comparison films: 12/29/2019. FINDINGS: Endotracheal tube has been removed. Left PICC line remains in place. There is slight worsening of congestion and edema. Cardiac and mediastinal silhouette are within normal limits. CP angles are sharp. The bony thorax appear unremarkable. IMPRESSION: Slight worsening of congestion and edema. Chest x-ray - 01/02/20 - Procedure: XRAY Chest 1v Indication: Reason For Exam: SOB Technique: Single AP view of the chest. Comparison: Chest radiograph dated 12/31/2019 Findings: The cardiomediastinal silhouette is unchanged in appearance. No new airspace consolidation. Stable pulmonary vascular congestion. Demonstration of streaky retrocardiac airspace opacity. No pneumothorax or pleural effusion. Unchanged left PICC. IMPRESSION: No significant change from prior examination. Laboratory Tests Test 01/02/20 23:49 01/03/20 05:10 01/03/20 05:24 01/03/20 11:37 POC Whole Blood Glucose 95 MG/DL (74-106) 106 MG/DL (74-106) Pending White Blood Count 15.9 K/UL (4.8-10.8) H Red Blood Count 3.04 M/UL (4.20-5.40) L Hemoglobin 9.3 G/DL (12.0-16.0) L Hematocrit 27.7 % (37.0-47.0) L Mean Corpuscular Volume 91 FL (80-99) Mean Corpuscular Hemoglobin 30.5 PG (27.0-31.0) Mean Corpuscular Hemoglobin Concent 33.5 G/DL (32.0-36.0) Red Cell Distribution Width 15.9 % (11.6-14.8) H Platelet Count 252 K/UL (150-450) Mean Platelet Volume 6.7 FL (6.5-10.1) Neutrophils (%) (Auto) 80.4 % (45.0-75.0) H Lymphocytes (%) (Auto) 7.9 % (20.0-45.0) L Monocytes (%) (Auto) 6.5 % (1.0-10.0) Eosinophils (%) (Auto) 4.0 % (0.0-3.0) H Basophils (%) (Auto) 1.2 % (0.0-2.0) Sodium Level 138 MMOL/L (136-145) Potassium Level 4.3 MMOL/L (3.5-5.1) Chloride Level 105 MMOL/L (98-107) Carbon Dioxide Level 24 MMOL/L (21-32) Anion Gap 10 mmol/L (5-15) Blood Urea Nitrogen 39 mg/dL (7-18) H Creatinine 1.0 MG/DL (0.55-1.30) Estimat Glomerular Filtration Rate 56.5 mL/min (>60) Glucose Level 101 MG/DL (74-106) Calcium Level 7.8 MG/DL (8.5-10.1) L Phosphorus Level 3.7 MG/DL (2.5-4.9) Magnesium Level 1.8 MG/DL (1.8-2.4) Total Bilirubin 0.4 MG/DL (0.2-1.0) Aspartate Amino Transf (AST/SGOT) 68 U/L (15-37) H Alanine Aminotransferase (ALT/SGPT) 50 U/L (12-78) Alkaline Phosphatase 113 U/L (46-116) Total Protein 5.1 G/DL (6.4-8.2) L Albumin 1.6 G/DL (3.4-5.0) L Globulin 3.5 g/dL Albumin/Globulin Ratio 0.5 (1.0-2.7) L Current Medications Medications (Trade) Dose Ordered Sig/Margarette Route PRN Reason Start Time Stop Time Status Last Admin Dose Admin Acetaminophen/ Butalbital/ Caffeine (Fioricet) 1 tab Q6H PRN ORAL headache 12/29/19 20:30 01/18/20 20:29 12/30/19 09:04 Amikacin Protocol (Amikacin pharmacy to dose) 1 ea DAILY PRN MISC Per rx protocol 12/29/19 20:30 01/28/20 20:29 Amikacin Sulfate 750 mg/Sodium Chloride 113 ml @ 113 mls/hr Q36H IV 12/31/19 05:00 01/05/20 16:59 01/03/20 05:22 Chlorhexidine Gluconate (Patti-Hex 2%) 1 applic DAILY@1999 TOPIC 12/29/19 20:30 03/28/20 20:29 01/02/20 21:36 Clotrimazole (Lotrimin) 1 applic BID TOPIC 12/30/19 09:00 03/20/20 10:29 01/03/20 09:16 Dextrose 1,000 ml @ 0 mls/hr Q24H PRN IV PN interrupted or unavailable 12/29/19 20:30 01/28/20 20:29 Dextrose (Dextrose 50%) 25 ml Q30M PRN IV Hypoglycemia 12/29/19 20:30 03/17/20 19:59 Dextrose (Dextrose 50%) 50 ml Q30M PRN IV Hypoglycemia 12/29/19 20:30 03/17/20 19:59 Diphenhydramine HCl (Benadryl) 25 mg Q4H PRN IVP Itching 12/30/19 21:50 01/29/20 21:49 01/02/20 21:21 Diphenhydramine HCl (Benadryl) 25 mg Q6H PRN ORAL Itching 12/29/19 20:30 01/19/20 20:29 01/03/20 10:01 Fat Emulsion Intravenous 240 ml/Amino Acids/ Electrolytes/ Dextrose 1,920 ml @ 80 mls/hr Q24H IV 12/30/19 20:00 01/27/20 19:59 01/02/20 21:40 Hydromorphone HCl 30 ml @ 0 mls/hr Q24H PRN IV For Pain 01/03/20 11:00 01/05/20 10:59 Hydromorphone HCl (Dilaudid) 1 mg Q3H PRN SUBQ Severe Breakthru Pain (>7) 12/30/19 13:30 01/06/20 13:29 Hydroxyzine HCl (Atarax) 50 mg Q6H PRN ORAL Itching 01/02/20 19:15 01/28/20 20:29 01/03/20 11:41 Insulin Aspart (NovoLOG) Q6HR SUBQ 12/30/19 00:00 03/18/20 00:00 Lansoprazole (Prevacid) 30 mg DAILY ORAL 12/30/19 09:00 01/17/20 08:59 01/03/20 09:14 Metronidazole 100 ml @ 100 mls/hr Q8HR IVPB 01/02/20 22:00 01/08/20 21:59 01/03/20 13:40 Micafungin Sodium 100 mg/Sodium Chloride 110 ml @ 110 mls/hr Q24H IVPB 12/30/19 16:00 01/06/20 15:59 01/03/20 17:07 Miscellaneous Medication (COMMUNICATIONS DEPARTMENT CHAIRPERSON Rate Change) 1 ea DAILY PRN MISC rate change 01/03/20 10:00 01/05/20 09:59 Miscellaneous Medication (COMMUNICATIONS DEPARTMENT CHAIRPERSON shift volume) 1 ea Q12HR@0700,1900 MISC 01/02/20 19:00 01/04/20 18:59 01/03/20 07:27 Naloxone HCl (Narcan) 0.1 mg Q1M PRN IVP RR<10/min OR SBP<90 mmHg 01/01/20 09:30 03/31/20 09:29 Ondansetron HCl (Zofran) 4 mg Q4H PRN IVP Nausea & Vomiting 12/30/19 21:40 01/29/20 21:39 01/02/20 21:21 Phytonadione (Vitamin K) 10 mg ONCE A WEEK SUBQ 01/01/20 09:00 03/24/20 08:59 01/01/20 08:24 Pramipexole (Mirapex) 1 mg TWICE A DAY ORAL 12/30/19 09:00 01/16/20 17:59 01/03/20 17:07 Quetiapine Fumarate (SEROqueL) 200 mg BEDTIME ORAL 12/29/19 21:00 01/31/20 20:59 01/02/20 21:36 Vancomycin HCl (Vanco pharmacy to dose) 1 ea DAILY PRN MISC Per rx protocol 12/31/19 14:00 01/30/20 13:59 Vancomycin HCl 750 mg/Sodium Chloride 250 ml @ 166.667 mls/hr Q12HR@0300,1500 IVPB 12/31/19 15:00 01/05/20 14:59 01/03/20 15:00 Kevan Burgess MD Jan 03, 2020 17:35
--- NOTE | 2020-01-03 19:41 | NUR ---
HAND-OFF: Report given to VARGAS Hein. pt is stable.
--- NOTE | 2020-01-03 19:44 | NUR ---
NURSE NOTES: received patient and report from VARGAS Stout. Patient alert and oriented x4 in no acute distress and no c/o pain. Dressing site noted with serous drainage. Ileo draining, ostomy pink. Caban noted and draining. AMIE drain noted and draining. Plan of care discussed.
--- NOTE | 2020-01-03 19:45 | NUR ---
NURSE NOTES: VARGAS Stout notified me that she called laboratory to confirm the specimen for wound culture and sensitivity was received. Will follow up after results are available.
[2020-01-03 20:00] VITALS: BP 128/72
[2020-01-03] MEDS: QUEtiapine 200mg tab ORAL SCH (20:16)
[2020-01-03] MEDS: Dyna-Hex 2% Top Sol 2oz TOPIC SCH (20:16)
[2020-01-03] MEDS: Fat Emulsion Iv 20% 240 ML in Tpn 1,680 ML IV SCH (20:16)
--- NOTE | 2020-01-03 21:05 | NUR ---
NURSE NOTES: Changed abdominal dressing as ordered HS. Drainage on old dressing serosanguineous, more of serous. 4x4 applied over dangelo followed by ABD and secured with paper tape.
--- NOTE | 2020-01-03 22:47 | NUR ---
NURSE NOTES: Changed CIVIL ENGINEERING PROFESSIONAL syringe. wasted 3.74 from previous syringe. After setting up new syringe, VTBI was at 27.8.
[2020-01-04] VITALS (7 sets, daily range): BP systolic 135–161; BP diastolic 75–92
[2020-01-04 05:40] LABS: BASOPHILS % (AUTO) 1.7 % (0.0-2.0); EOSINOPHILS % (AUTO) 3.9 % (0.0-3.0); HEMATOCRIT 32.2 % (37.0-47.0); HEMOGLOBIN 10.5 G/DL (12.0-16.0); LYMPHOCYTES % (AUTO) 7.8 % (20.0-45.0); MEAN CORPUSCULAR VOLUME 92 FL (80-99); MONOCYTES % (AUTO) 9.4 % (1.0-10.0); NEUTROPHILS % (AUTO) 77.2 % (45.0-75.0); PLATELET COUNT 286 K/UL (150-450); RED BLOOD COUNT 3.49 M/UL (4.20-5.40); RED CELL DISTRIBUTION WIDTH 15.9 % (11.6-14.8); WHITE BLOOD COUNT 15.6 K/UL (4.8-10.8)
[2020-01-04 05:57] LABS: ALBUMIN 1.9 G/DL (3.4-5.0); ALBUMIN/GLOBULIN RATIO 0.5 (1.0-2.7); BILIRUBIN,TOTAL 0.3 MG/DL (0.2-1.0); CALCIUM 8.6 MG/DL (8.5-10.1); PHOSPHORUS 3.9 MG/DL (2.5-4.9)
[2020-01-04] MEDS: NovoLOG Insulin Flexpen SUBQ SCH ×5 (06:00→23:50)
[2020-01-04 06:15] LABS: CREATINE KINASE 364 U/L (26-308)
[2020-01-04] MEDS: PCA shift volume MISC SCH ×2 (07:18→19:00)
--- NOTE | 2020-01-04 07:22 | NUR ---
NURSE HAND-OFF: Important Events on Shift:NA Patient Status: stable Diet: NPO except ice chips and PO meds Pending Orders: NA Pending Results/Labs:NA Pending MD notification:NA Latest Vital Signs: Temperature 98.2 , Pulse 101 , B/P 139 /77 , Respiratory Rate 16 , O2 SAT 95 , Room Air, O2 Flow Rate 2.0 . Vital Sign Comment: stable throughout shift, patiets HR runs tachycardic Latest Jimenez Fall Score: 35 Fall Risk: Medium Risk Safety Measures: Call light Within Reach, Bed Alarm Zone 1, Side Rails Side Rails x2, Bed position Low and Locked. Fall Precautions: Yellow Socks Report given to VARGAS Armstrong.
--- NOTE | 2020-01-04 07:30 | NUR ---
NURSE NOTES: Patient lying in bed awake. Complain of pain 7/10 on abdomen and on DESK EDITOR for pain management. Will continue to monitor. Surgical dressing and PICC line dressing intact and dry. Caban catheter and AMIE x1 patent and draining well. Bed lowest position. Call light within reach. Will continue to monitor.
[2020-01-04] MEDS: HydrOXYzine tab 25mg tab ORAL PRN ×2 (07:41→20:22)
[2020-01-04] MEDS: Pramipexole 0.5mg tab ORAL SCH ×2 (09:30→17:32)
--- NOTE | 2020-01-04 11:34 | Pulmonology Progress Note ---
Subjective ROS Limited/Unobtainable: No Interval Events: Extubated ; doing well; now in 3E Constitutional: Reports: fatigue; Denies: fever HEENT: Repors: no symptoms Respiratory: Reports: no symptoms Cardiovascular: Reports: no symptoms Gastrointestinal/Abdominal: Denies: nausea, vomiting Genitourinary: Reports: no symptoms Psychiatric: Denies: depression Skin: Reports: rash - stable, some pruritis Musculoskeletal: Denies: pain Allergies: Coded Allergies: AMPICILLIN (Verified Allergy, Unknown, 12/17/19) TETRACYCLINE (Verified Allergy, Unknown, 12/17/19) Objective Last 24 Hour Vital Signs Date Time Temp Pulse Resp B/P (MAP) Pulse Ox O2 Delivery O2 Flow Rate FiO2 01/04/20 09:00 Room Air 01/04/20 08:32 97 Room Air 21 01/04/20 08:00 106 18 97 01/04/20 08:00 98.4 106 18 136/75 (95) 97 01/04/20 04:00 98.2 101 16 139/77 (97) 95 01/04/20 04:00 101 16 95 01/04/20 00:00 100 15 96 01/04/20 00:00 98.6 100 15 139/75 (96) 96 01/03/20 21:00 Room Air 01/03/20 20:00 98.9 101 18 128/72 (90) 95 01/03/20 20:00 101 18 95 01/03/20 19:29 97 Room Air 21 01/03/20 16:00 98.6 102 18 127/63 (84) 98 01/03/20 16:00 102 18 94 01/03/20 12:00 106 18 98 01/03/20 12:00 97.6 106 18 126/67 (86) 98 Intake and Output 01/03/20 01/04/20 19:00 07:00 Intake Total 100 ml 720 ml Output Total 1940 ml 1590 ml Balance -1840 ml -870 ml IV Total 100 ml 720 ml Output Urine Total 1340 ml 1450 ml Drainage Total 20 ml 15 ml Other 580 ml 125 ml General Appearance: no acute distress Respiratory: chest wall non-tender Cardiovascular: normal peripheral pulses Abdomen: soft, non tender Microbiology Date/Time Source Procedure Growth Status 01/03/20 16:00 Other Gram Stain - Final Resulted 01/03/20 16:00 Other Wound Culture - Preliminary NO GROWTH Resulted 01/01/20 16:00 Blood Blood Culture - Preliminary NO GROWTH AFTER 48 HOURS Resulted 01/01/20 15:45 Blood Blood Culture - Preliminary NO GROWTH AFTER 48 HOURS Resulted Laboratory Tests 01/03/20 11:37: POC Whole Blood Glucose [Pending] 01/03/20 17:26: POC Whole Blood Glucose [Pending] 01/04/20 00:08: POC Whole Blood Glucose 119H 01/04/20 05:10: White Blood Count 15.6H, Red Blood Count 3.49L, Hemoglobin 10.5L, Hematocrit 32.2L, Mean Corpuscular Volume 92, Mean Corpuscular Hemoglobin 30.1, Mean Corpuscular Hemoglobin Concent 32.6, Red Cell Distribution Width 15.9H, Platelet Count 286, Mean Platelet Volume 6.9, Neutrophils (%) (Auto) 77.2H, Lymphocytes (%) (Auto) 7.8L, Monocytes (%) (Auto) 9.4, Eosinophils (%) (Auto) 3.9H, Basophils (%) (Auto) 1.7, Sodium Level 136, Potassium Level 4.0, Chloride Level 103, Carbon Dioxide Level 25, Anion Gap 9, Blood Urea Nitrogen 34H, Creatinine 1.0, Estimat Glomerular Filtration Rate 56.5, Glucose Level 113H, Calcium Level 8.6, Phosphorus Level 3.9, Magnesium Level 1.7L, Total Bilirubin 0.3, Aspartate Amino Transf (AST/SGOT) 53H, Alanine Aminotransferase (ALT/SGPT) 54, Alkaline Phosphatase 140H, Total Creatine Kinase 364H, Total Protein 6.0L, Albumin 1.9L, Globulin 4.1, Albumin/Globulin Ratio 0.5L 01/04/20 05:16: POC Whole Blood Glucose 104 Current Medications Medications (Trade) Dose Ordered Sig/Margarette Route PRN Reason Start Time Stop Time Status Last Admin Dose Admin Acetaminophen/ Butalbital/ Caffeine (Fioricet) 1 tab Q6H PRN ORAL headache 12/29/19 20:30 01/18/20 20:29 12/30/19 09:04 Amikacin Protocol (Amikacin pharmacy to dose) 1 ea DAILY PRN MISC Per rx protocol 12/29/19 20:30 01/28/20 20:29 Amikacin Sulfate 750 mg/Sodium Chloride 113 ml @ 113 mls/hr Q36H IV 01/04/20 17:00 01/10/20 04:59 Chlorhexidine Gluconate (Patti-Hex 2%) 1 applic DAILY@1999 TOPIC 12/29/19 20:30 03/28/20 20:29 01/03/20 20:16 Clotrimazole (Lotrimin) 1 applic BID TOPIC 12/30/19 09:00 03/20/20 10:29 01/04/20 09:30 Dextrose 1,000 ml @ 0 mls/hr Q24H PRN IV PN interrupted or unavailable 12/29/19 20:30 01/28/20 20:29 Dextrose (Dextrose 50%) 25 ml Q30M PRN IV Hypoglycemia 12/29/19 20:30 03/17/20 19:59 Dextrose (Dextrose 50%) 50 ml Q30M PRN IV Hypoglycemia 12/29/19 20:30 03/17/20 19:59 Diphenhydramine HCl (Benadryl) 25 mg Q4H PRN IVP Itching 12/30/19 21:50 01/29/20 21:49 01/02/20 21:21 Diphenhydramine HCl (Benadryl) 25 mg Q6H PRN ORAL Itching 12/29/19 20:30 01/19/20 20:29 01/04/20 00:24 Fat Emulsion Intravenous 240 ml/Amino Acids/ Electrolytes/ Dextrose 1,920 ml @ 80 mls/hr Q24H IV 12/30/19 20:00 01/27/20 19:59 01/03/20 20:16 Hydromorphone HCl 30 ml @ 0 mls/hr Q24H PRN IV For Pain 01/03/20 11:00 01/05/20 10:59 01/03/20 22:32 Hydromorphone HCl (Dilaudid) 1 mg Q3H PRN SUBQ Severe Breakthru Pain (>7) 12/30/19 13:30 01/06/20 13:29 Hydroxyzine HCl (Atarax) 50 mg Q6H PRN ORAL Itching 01/02/20 19:15 01/28/20 20:29 01/04/20 07:41 Insulin Aspart (NovoLOG) Q6HR SUBQ 12/30/19 00:00 03/18/20 00:00 Lansoprazole (Prevacid) 30 mg DAILY ORAL 12/30/19 09:00 01/17/20 08:59 01/04/20 09:30 Metronidazole 100 ml @ 100 mls/hr Q8HR IVPB 01/02/20 22:00 01/08/20 21:59 01/04/20 05:20 Micafungin Sodium 100 mg/Sodium Chloride 110 ml @ 110 mls/hr Q24H IVPB 12/30/19 16:00 01/06/20 15:59 01/03/20 17:07 Miscellaneous Medication (CREDIT RISK ANALYTICS MANAGER Rate Change) 1 ea DAILY PRN MISC rate change 01/03/20 10:00 01/05/20 09:59 Miscellaneous Medication (CREDIT RISK ANALYTICS MANAGER shift volume) 1 ea Q12HR@0700,1900 MISC 01/02/20 19:00 01/04/20 18:59 01/04/20 07:18 Naloxone HCl (Narcan) 0.1 mg Q1M PRN IVP RR<10/min OR SBP<90 mmHg 01/01/20 09:30 03/31/20 09:29 Ondansetron HCl (Zofran) 4 mg Q4H PRN IVP Nausea & Vomiting 12/30/19 21:40 01/29/20 21:39 01/04/20 10:28 Phytonadione (Vitamin K) 10 mg ONCE A WEEK SUBQ 01/01/20 09:00 03/24/20 08:59 01/01/20 08:24 Pramipexole (Mirapex) 1 mg TWICE A DAY ORAL 12/30/19 09:00 01/16/20 17:59 01/04/20 09:30 Quetiapine Fumarate (SEROqueL) 200 mg BEDTIME ORAL 12/29/19 21:00 01/31/20 20:59 01/03/20 20:16 Vancomycin HCl (Vanco pharmacy to dose) 1 ea DAILY PRN MISC Per rx protocol 12/31/19 14:00 01/30/20 13:59 Vancomycin HCl 750 mg/Sodium Chloride 250 ml @ 166.667 mls/hr Q12HR@0300,1500 IVPB 01/04/20 03:00 01/09/20 02:59 01/04/20 02:05 Assessment/Plan Assessment/Plan IMPRESSION: 1. Status post re-intubation. 2. Status post extubation. 3. Status post laparotomy. 4. Ulcerative colitis. 5. GERD. DISCUSSION: Postoperative care per Dr. Mckeon. On TPN. The patient has been extubated successfully. Continue oxygen and pulmonary hygiene. I will follow carefully. Pain control. DVT prophylaxis. GI prophylaxis. Transferred out of ICU. Has persistent leucocytosis Seen by nephrology Will see prn only Onesimo Perales Omar Syed MD Jan 04, 2020 11:34
[2020-01-04] MEDS ORDERED: Rate Change PCA 1 Each MISC PRN (11:45)
--- NOTE | 2020-01-04 11:47 | General Progress Note ---
Progress Note Progress Note AVSS with tachycardia 100-106 c/o swelling of both thighs - lower legs wnl Abdomen soft, continued serous drainage from upper portion of incision where there had been mesh, initial C&S no growth Urine 2790 Ileostomy 705 AMIE drain 35 serous On Amikacin, Flagyl and micafungin WBC 15,600 Hgb 10.5 (transfused 1 unit PRBC yesterday) BUN 34 Cr 1.0 Mg 1.7 Albumin 1.9 Imp: Ileus resolved Thigh edema ? due to fluid overload - now IV fluids NS 100/hr d/c'd Plan; Clear liquid diet continue TPN Observe thigh edema, w/u as needed monitor wound drainage Gio Mckeon MD Jan 04, 2020 11:47
[2020-01-04] MEDS ORDERED: PCA HYDROmorphone 1mg/ml 30 ML IV PRN (12:00)
[2020-01-04] MEDS ORDERED: Simethicone 80mg tab ORAL PRN (12:15)
--- NOTE | 2020-01-04 12:20 | NUR ---
NURSE NOTES: Spoke to regarding patient and new Simethicone order received. Order read back and carried out.
[2020-01-04] MEDS ORDERED: NS 275ml ONE (14:45)
[2020-01-04] MEDS: Micafungin 100 MG in NS 110 ML IVPB SCH (15:42)
[2020-01-04] MEDS: Amikacin 750 MG in NS 110 ML IV SCH (17:32)
--- NOTE | 2020-01-04 19:10 | NUR ---
NURSE NOTES: Patient complained gas discomfort and noted mixture of brown, green and clear color sputum. Spoke to regarding patient and NPO and C-diff order received. Order read back and carried out.
--- NOTE | 2020-01-04 19:30 | NUR ---
NURSE HAND-OFF: Important Events on Shift: Complain of gas discomfort Patient Status: Stable Diet: NPO Pending Orders: N/A Pending Results/Labs: C-diff on 01/04/20 and CBC, CMP, Mg, Phos on 01/05/20 Pending MD notification: N/A Latest Vital Signs: Temperature 97.6 , Pulse 101 , B/P 140 /76 , Respiratory Rate 16 , O2 SAT 94 , Room Air, O2 Flow Rate 2.0 . Vital Sign Comment: Stable Latest Jimenez Fall Score: 50 Fall Risk: High Risk Safety Measures: Call light Within Reach, Bed Alarm Zone 1, Side Rails Side Rails x1, Bed position Low and Locked. Fall Precautions: Yellow Socks Door Sign Patient Fall Education Report given to Angel Luis KAYE. Patient in stable condition.
--- NOTE | 2020-01-04 19:35 | NUR ---
NURSE NOTES: received patient and report from VARGAS Armstrong. PICC line noted clean dry and intact running appropriate fluids. Patient alert and oriented x 4 with no acute s/s of distress. Pain controlled with COMPUTER TECHNOLOGY TEACHER at level of 4/10. surgical dressing clean dry and intact. ostomy bag draining dark green fluid. AMIE intact and draining. Plan of care discussed.
[2020-01-04] MEDS: Dyna-Hex 2% Top Sol 2oz TOPIC SCH (20:05)
[2020-01-04] MEDS: QUEtiapine 200mg tab ORAL SCH (20:05)
[2020-01-04] MEDS: Fat Emulsion Iv 20% 240 ML in Tpn 1,680 ML IV SCH (20:06)
--- NOTE | 2020-01-04 21:30 | NUR ---
NURSE NOTES: Changed REGULATORY AFFAIRS COORDINATOR syringe and tubing. Wasted 2.79ml from previous syringe. After priming and setting up new syrine, VTBI at 27.6ml.
--- NOTE | 2020-01-04 22:00 | NUR ---
NURSE NOTES: Found ostomy bag leaking from bottom of bag and around stoma. Stoma bright red. Changed out ostomy bag with hole cut 1.5in to fit around stoma. applied cavilon around stoma prior to placing bag. Surgical dressing changed as well with mild serosanguineous drainage. patient gown changed as well. Patient tolerated procedure well.
[2020-01-05] VITALS: BP 162/88
--- NOTE | 2020-01-05 01:15 | NUR ---
NURSE NOTES: Patient continues to be nauseous after giving Zofran. She vomited x1 and continues to have brown sputum. Called Dr. Mckeon. Received orders for STAT one time dose of Reglan 10mg IVP and Reglan 10mg IVP q6h scheduled. Will input TORB orders.
[2020-01-05] MEDS ORDERED: Metoclopramide 10mg/2ml Inj IVP SCH ×2 (01:30→06:00)
--- NOTE | 2020-01-05 01:53 | NUR ---
NURSE NOTES: Called [facility] pharmacy and spoke with Pharmacist Shreya regarding potential drug interaction of ordered Reglan with quetiapine. Patient was administered quetiapine at 2100. Pharmacist found in literature regarding Reglan that it should be avoided being prescribed when taking quetiapine concurrently due to possible increase risk of extrapyramidal side effects. Therefore, I chose to not administer the dose. Checked in on patient, she stated that nausea has gone down and she hasnt vomited since the last zofran dose but she is complaining of gas. Will endorse possible drug interaction to day shift nurse.
[2020-01-05 04:00] VITALS: BP 149/84
[2020-01-05] MEDS: NovoLOG Insulin Flexpen SUBQ SCH ×3 (06:00→18:00)
[2020-01-05] MEDS: HydrOXYzine tab 25mg tab ORAL PRN (06:13)
[2020-01-05 06:29] LABS: HEMATOCRIT 33.8 % (37.0-47.0); HEMOGLOBIN 11.2 G/DL (12.0-16.0); MEAN CORPUSCULAR VOLUME 92 FL (80-99); PLATELET COUNT 361 K/UL (150-450); RED BLOOD COUNT 3.68 M/UL (4.20-5.40); RED CELL DISTRIBUTION WIDTH 15.7 % (11.6-14.8); WHITE BLOOD COUNT 19.5 K/UL (4.8-10.8)
[2020-01-05 07:00] LABS: ALANINE AMINOTRANSFERASE 48 U/L (12-78); ALBUMIN 1.9 G/DL (3.4-5.0); ALBUMIN/GLOBULIN RATIO 0.5 (1.0-2.7); ALKALINE PHOSPHATASE 155 U/L (46-116); ANION GAP 10 mmol/L (5-15); ASPARTATE AMINO TRANSFERASE 37 U/L (15-37); BILIRUBIN,TOTAL 0.3 MG/DL (0.2-1.0); BLOOD UREA NITROGEN 30 mg/dL (7-18); CALCIUM 8.5 MG/DL (8.5-10.1); CARBON DIOXIDE 24 MMOL/L (21-32); CHLORIDE 102 MMOL/L (98-107); CREATININE 0.9 MG/DL (0.55-1.30); PHOSPHORUS 3.5 MG/DL (2.5-4.9); POTASSIUM 3.4 MMOL/L (3.5-5.1); SODIUM 136 MMOL/L (136-145)
[2020-01-05] MEDS: PCA shift volume MISC SCH ×2 (07:00→19:00)
--- NOTE | 2020-01-05 07:20 | NUR ---
NURSE HAND-OFF: Important Events on Shift:Dr Mckeon notified for patients Nausea despite being given zofran, Reglan 10mg IV was ordered STAT and scheduled q6h. Pt takes seroquel which has severe interactions with reglan. Pharmacy pipeline called and was advised that prescribing reglan with quetiapine should be avoided because of increased risk of extrapyramidal side effects. Patient Status: stable but complaining of nausea and vomiting which was controlled towards end of shift, also complaining of abdominal gas and acidity. Diet: NPO Pending Orders: NA Pending Results/Labs:NA Pending MD notification: whether reglan order should be continued Latest Vital Signs: Temperature 98.8 , Pulse 100 , B/P 149 /84 , Respiratory Rate 17 , O2 SAT 93 , Room Air, O2 Flow Rate 2.0 . Vital Sign Comment:stable throughout shift Latest Jimenez Fall Score: 50 Fall Risk: High Risk Safety Measures: Call light Within Reach, Bed Alarm Zone 1, Side Rails Side Rails x1, Bed position Low and Locked. Fall Precautions: Yellow Socks Door Sign Patient Fall Education Report given to VARGAS Moon written report.
[2020-01-05 08:00] VITALS: BP 159/87
--- NOTE | 2020-01-05 08:00 | NUR ---
NURSE NOTES: Patient is in bed asleep, arousable to verbal stimuli, patient is able to make needs known. Stable. Breathing is even and unlabored on 2L oxygen via nc. Brown sputum noted on towel. Patient denies SOB or chest pain. PICC running TPN and BELLING MACHINE OPERATOR as ordered. F/c patent and draining bernard urine. Ileo appliance intact. Papito thighs are edematous. Patient instructed to use call light for assistance, verbalized understanding. All safety measures provided. Patient is in bed in locked and lowest position with call light within reach and trapeze overhead. Will continue to monitor.
[2020-01-05] MEDS: Pramipexole 0.5mg tab ORAL SCH ×2 (08:17→18:30)
[2020-01-05] MEDS ORDERED: Mylanta II UD 30ml ORAL PRN (08:45)
--- NOTE | 2020-01-05 08:49 | General Progress Note ---
Progress Note Progress Note AVSS Having cough/?emesis vs. spitting up overnight Abdomen soft, serous drainage continues from upper incision, stoma stable Persistent severe thigh edema anterior and posterior. Perineum no acute findings. Lower legs not swollen WBC up 19,500 Hgb 11.2 BUN 30 Cr 0.9 Albumin 1.9 Urine 2850 Ileostomy 435 AMIE drain 15 Imp: Cough vs small emesis and increasing leukocytosis Edema of thighs bilateral Plan: CXR, KUB Bilat. lower extremity venous duplex + IVC venous imaging Continue TPN, antibiotics Add Compazine prn to Gio Sanders MD Jan 05, 2020 08:49
[2020-01-05] MEDS ORDERED: Rate Change PCA 1 Each MISC PRN (09:00)
[2020-01-05] MEDS ORDERED: PCA HYDROmorphone 1mg/ml 30 ML IV PRN (09:00)
--- NOTE | 2020-01-05 10:27 | Pulmonology Progress Note ---
Subjective ROS Limited/Unobtainable: No Interval Events: Extubated ; doing well; now in 3E Constitutional: Reports: fatigue; Denies: fever HEENT: Repors: no symptoms Respiratory: Reports: no symptoms Cardiovascular: Reports: no symptoms Gastrointestinal/Abdominal: Denies: nausea, vomiting Genitourinary: Reports: no symptoms Psychiatric: Denies: depression Skin: Reports: rash - stable, some pruritis Musculoskeletal: Denies: pain Allergies: Coded Allergies: AMPICILLIN (Verified Allergy, Unknown, 12/17/19) TETRACYCLINE (Verified Allergy, Unknown, 12/17/19) Objective Last 24 Hour Vital Signs Date Time Temp Pulse Resp B/P (MAP) Pulse Ox O2 Delivery O2 Flow Rate FiO2 01/05/20 09:00 Room Air 01/05/20 08:00 100 21 99 01/05/20 08:00 98.4 100 21 159/87 (111) 99 100 01/05/20 07:35 99 Nasal Cannula 2.0 28 01/05/20 04:00 98.8 100 17 149/84 (105) 93 01/05/20 04:00 100 17 93 01/05/20 00:00 96 15 93 01/05/20 00:00 98.2 96 15 162/88 (112) 93 01/04/20 21:00 Room Air 01/04/20 20:00 96 18 95 01/04/20 20:00 97.9 96 18 161/92 (115) 95 01/04/20 19:22 94 Nasal Cannula 2.0 28 01/04/20 16:00 97.6 101 16 140/76 (97) 96 01/04/20 16:00 101 16 96 01/04/20 12:00 98.0 106 16 135/75 (95) 94 01/04/20 12:00 106 16 94 Intake and Output 01/04/20 01/05/20 19:00 07:00 Intake Total 700 ml 640 ml Output Total 1760 ml 1540 ml Balance -1060 ml -900 ml Intake Oral 700 ml IV Total 640 ml Output Urine Total 1400 ml 1450 ml Drainage Total 10 ml 5 ml Other 350 ml 85 ml General Appearance: no acute distress Respiratory: chest wall non-tender Cardiovascular: normal peripheral pulses Abdomen: soft, non tender Microbiology Date/Time Source Procedure Growth Status 01/05/20 00:48 Stool Clostridium difficile Toxin Assay - Final Complete 01/03/20 16:00 Other Gram Stain - Final Resulted 01/03/20 16:00 Wound Culture - Preliminary Gram Negative Bacillus 1 Gram Negative Bacillus 2 Resulted Laboratory Tests 01/04/20 11:53: POC Whole Blood Glucose [Pending] 01/04/20 17:32: POC Whole Blood Glucose [Pending] 01/04/20 23:50: POC Whole Blood Glucose 125H 01/05/20 05:00: White Blood Count 19.5H, Red Blood Count 3.68L, Hemoglobin 11.2L, Hematocrit 33.8L, Mean Corpuscular Volume 92, Mean Corpuscular Hemoglobin 30.4, Mean Corpuscular Hemoglobin Concent 33.2, Red Cell Distribution Width 15.7H, Platelet Count 361, Mean Platelet Volume 6.7, Neutrophils (%) (Auto) , Lymphocytes (%) (Auto) , Monocytes (%) (Auto) , Eosinophils (%) (Auto) , Basophils (%) (Auto) , Differential Total Cells Counted 100, Neutrophils % (Manual) 88H, Lymphocytes % (Manual) 3L, Monocytes % (Manual) 7, Eosinophils % (Manual) 2, Basophils % (Manual) 0, Band Neutrophils 0, Platelet Estimate Adequate, Platelet Morphology Normal, Hypochromasia 1+, Anisocytosis 1+, Sodium Level 136, Potassium Level 3.4L, Chloride Level 102, Carbon Dioxide Level 24, Anion Gap 10, Blood Urea Nitrogen 30H, Creatinine 0.9, Estimat Glomerular Filtration Rate > 60, Glucose Level 126H, Calcium Level 8.5, Phosphorus Level 3.5, Magnesium Level 2.4, Total Bilirubin 0.3, Aspartate Amino Transf (AST/SGOT) 37, Alanine Aminotransferase (ALT/SGPT) 48, Alkaline Phosphatase 155H, Total Protein 5.9L, Albumin 1.9L, Globulin 4.0, Albumin/Globulin Ratio 0.5L 01/05/20 05:02: POC Whole Blood Glucose 121H Current Medications Medications (Trade) Dose Ordered Sig/Margarette Route PRN Reason Start Time Stop Time Status Last Admin Dose Admin Acetaminophen/ Butalbital/ Caffeine (Fioricet) 1 tab Q6H PRN ORAL headache 12/29/19 20:30 01/18/20 20:29 12/30/19 09:04 Al Hydroxide/Mg Hydroxide (Mylanta II) 30 ml Q6H PRN ORAL GAS/DYSPEPSIA 01/05/20 08:45 02/04/20 08:44 Amikacin Protocol (Amikacin pharmacy to dose) 1 ea DAILY PRN MISC Per rx protocol 12/29/19 20:30 01/28/20 20:29 Amikacin Sulfate 750 mg/Sodium Chloride 113 ml @ 113 mls/hr Q36H IV 01/04/20 17:00 01/10/20 04:59 01/04/20 17:32 Chlorhexidine Gluconate (Patti-Hex 2%) 1 applic DAILY@1999 TOPIC 12/29/19 20:30 03/28/20 20:29 01/04/20 20:05 Clotrimazole (Lotrimin) 1 applic BID TOPIC 12/30/19 09:00 03/20/20 10:29 01/05/20 08:18 Dextrose 1,000 ml @ 0 mls/hr Q24H PRN IV PN interrupted or unavailable 12/29/19 20:30 01/28/20 20:29 Dextrose (Dextrose 50%) 25 ml Q30M PRN IV Hypoglycemia 12/29/19 20:30 03/17/20 19:59 Dextrose (Dextrose 50%) 50 ml Q30M PRN IV Hypoglycemia 12/29/19 20:30 03/17/20 19:59 Diphenhydramine HCl (Benadryl) 25 mg Q4H PRN IVP Itching 12/30/19 21:50 01/29/20 21:49 01/02/20 21:21 Diphenhydramine HCl (Benadryl) 25 mg Q6H PRN ORAL Itching 12/29/19 20:30 01/19/20 20:29 01/04/20 23:56 Fat Emulsion Intravenous 240 ml/Amino Acids/ Electrolytes/ Dextrose 1,920 ml @ 80 mls/hr Q24H IV 12/30/19 20:00 01/27/20 19:59 01/04/20 20:06 Hydromorphone HCl 30 ml @ 0 mls/hr Q24H PRN IV For Pain 01/05/20 09:00 01/07/20 08:59 Hydromorphone HCl (Dilaudid) 1 mg Q3H PRN SUBQ Severe Breakthru Pain (>7) 01/04/20 12:00 01/11/20 11:59 Hydroxyzine HCl (Atarax) 50 mg Q6H PRN ORAL Itching 01/02/20 19:15 01/28/20 20:29 01/05/20 06:13 Insulin Aspart (NovoLOG) Q6HR SUBQ 12/30/19 00:00 03/18/20 00:00 Lansoprazole (Prevacid) 30 mg Q12HR ORAL 01/05/20 21:00 02/04/20 20:59 Metronidazole 100 ml @ 100 mls/hr Q8HR IVPB 01/02/20 22:00 01/08/20 21:59 01/05/20 05:36 Micafungin Sodium 100 mg/Sodium Chloride 110 ml @ 110 mls/hr Q24H IVPB 12/30/19 16:00 01/06/20 15:59 01/04/20 15:42 Miscellaneous Medication (COREMAKER FLOOR Rate Change) 1 ea DAILY PRN MISC rate change 01/05/20 09:00 01/07/20 08:59 Miscellaneous Medication (COREMAKER FLOOR shift volume) 1 ea Q12HR@0700,1900 MISC 01/05/20 19:00 01/07/20 18:59 Naloxone HCl (Narcan) 0.1 mg Q1M PRN IVP RR<10/min OR SBP<90 mmHg 01/01/20 09:30 03/31/20 09:29 Ondansetron HCl (Zofran) 4 mg Q4H PRN IVP Nausea & Vomiting 12/30/19 21:40 01/29/20 21:39 01/05/20 05:58 Phytonadione (Vitamin K) 10 mg ONCE A WEEK SUBQ 01/01/20 09:00 03/24/20 08:59 01/01/20 08:24 Pramipexole (Mirapex) 1 mg TWICE A DAY ORAL 12/30/19 09:00 01/16/20 17:59 01/05/20 08:17 Prochlorperazine (Compazine) 10 mg Q6H PRN IV Nausea & Vomiting 01/05/20 08:45 02/04/20 08:44 Quetiapine Fumarate (SEROqueL) 200 mg BEDTIME ORAL 12/29/19 21:00 01/31/20 20:59 01/04/20 20:05 Vancomycin HCl (Vanco pharmacy to dose) 1 ea DAILY PRN MISC Per rx protocol 12/31/19 14:00 01/30/20 13:59 Vancomycin HCl 750 mg/Sodium Chloride 250 ml @ 166.667 mls/hr Q12HR@0300,1500 IVPB 01/04/20 03:00 01/09/20 02:59 01/05/20 02:39 Assessment/Plan Assessment/Plan IMPRESSION: 1. Status post re-intubation. 2. Status post extubation. 3. Status post laparotomy. 4. Ulcerative colitis. 5. GERD. DISCUSSION: Postoperative care per Dr. Mckeon. On TPN. The patient has been extubated successfully. Continue oxygen and pulmonary hygiene. I will follow carefully. Pain control. DVT prophylaxis. GI prophylaxis. Transferred out of ICU. Has improved leucocytosis Seen by nephrology Has discolored phlegm; will send for CS Will see prn only Emilio Vega M.D. Emilio Vega MD Jan 05, 2020 10:27
--- NOTE | 2020-01-05 10:30 | NUR ---
NURSE NOTES: Patient made aware of sputum culture orders. Specimen cup at bedside, patient stated she is not coughing anymore and is unable to expectorate at this time.
--- NOTE | 2020-01-05 10:30 | NUR ---
NURSE NOTES: Patient made aware of sputum culture orders. Specimen cup at bedside, patient stated that she is not coughing anymore and is unable to expectorate at this time.
--- NOTE | 2020-01-05 10:40 | NUR ---
NURSE NOTES: Venous duplex done at bedside.
[2020-01-05 11:51] VITALS: BP 152/92
--- NOTE | 2020-01-05 12:04 | NUR ---
RD ASSESSMENT & RECOMMENDATIONS SEE CARE ACTIVITY FOR COMPLETE ASSESSMENT DAILY ESTIMATED NEEDS: Needs based on Surgery/ 59kg 25-30 kcals/kg [id number] total kcals 1-2 g protein/kg 59-118 g total protein 25-35 mL/kg 5496-8903 total fluid mLs NUTRITION DIAGNOSIS: Altered GI function R/T h/o UC, total colectomy, admitted w/ failed ileoanal J pouch with abdominal pain and J pouch bleeding as evidenced by s/p resection defunctionalized small bowel and ileoanal J pouch, revision of ileostomy, NPO, cont on TPN. CURRENT DIET:NPO PO DIET RECOMMENDATIONS: DIET PER MD PARENTERAL NUTRITION RECOMMENDATIONS: D/AA Rate: 70 IL Rate: 10 Total Rate: 80 Volume: 1920 % Dextrose: 16 % AA: 5.0 Energy (kcals/kg): 1730 Protein (g/kg protein): 84 Nonprotein KCALS: 1394 GIR (mg CHO/kg/min): 3.17 % Fat KCALS: 27.7 NPC: N Ratio: 103.7 TPN Comment: - D16% AA 5.0% @ 70ml/hr + IL 20% @ 10ml/hr -> all 3:1, total of 80ml/hr - Maintain per MD - TPN @ goal provides 100% est kcal/prot needs 29kcal/1.42g prot per kg ADDITIONAL RECOMMENDATIONS: * Calibrated bedscale wt or standing wt as able for accurate CBW * Monitor lytes, replete as needed * Monitor LFTs, BGs closely, need for TPN formulary change -> Low K (3.4) .
--- NOTE | 2020-01-05 14:00 | NUR ---
NURSE NOTES: Patient is sitting up in chair.
--- NOTE | 2020-01-05 14:15 | Infectious Diseases Prog Note ---
Assessment/Plan Assessment/Plan ASSESSMENT AND PLAN: 1. e.coli uti, morganella uti, left leg cellulitis, ? reaction/atypical drug rash to aztreonam, allergies - ampicillin, tetracycline s/p surgery on 12/29/19 - significant leukocytosis, ? sepsis vs post-surgical leukocytosis fungemia risk, TPN atelectasis vs pna (aspiration/hcap) intra-abdominal fluid culture, ? abscess - e.coli, s-amikacin elevated Ck noted - ? daptomycin - held - ck level less wound drainage per surgery note - ? wound infection - gram neg growing so far - amikacin, flagyl, vancomycin, micafungin - day # 6 post-op - f/u on wound culture - gram neg so far - monitor labs, leukocytosis, chest x-ray, f/u on sputum culture - wbc trending downward but still high - d/w Dr. Mckeon - d/w RN and patient 2. skin care per protocol - ? fungal component, on clotrimazole cream 3. 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 4. History of Narcisa ileostomy. 5. History of ulcerative colitis. 6. History of multiple abdominal surgeries. 7. History of cholecystectomy. 8. History of peristomal hernia and mesh. 9. History of colectomy. 10. Continue treatment per Dr. Mckeon and consultants. 11. Allergies to ampicillin, tetracycline. She gets hives with ampicillin. 12. Social history is negative. 13. Family history is noncontributory. 14. MAR is noted. 15. Case was discussed with RN. 16. Case was discussed with Dr. Mckeon. 17. Case was discussed with the patient. Subjective Constitutional: Reports: other - + colored sputum ; Denies: fever HEENT: Reports: congestion Respiratory: Reports: shortness of breath Cardiovascular: Denies: chest pain Gastrointestinal/Abdominal: Denies: nausea, vomiting Genitourinary: Reports: other - + zheng Neurologic: Denies: headache Psychiatric: Denies: depression Skin: Reports: rash - no new rash Hematologic: Denies: bleeding Musculoskeletal: Denies: pain Allergies: Coded Allergies: AMPICILLIN (Verified Allergy, Unknown, 12/17/19) TETRACYCLINE (Verified Allergy, Unknown, 12/17/19) Objective Last 24 Hour Vital Signs Date Time Temp Pulse Resp B/P (MAP) Pulse Ox O2 Delivery O2 Flow Rate FiO2 01/05/20 11:55 104 20 97 01/05/20 11:51 98.3 104 20 152/92 (112) 97 104 01/05/20 09:00 Room Air 01/05/20 08:00 100 21 99 01/05/20 08:00 98.4 100 21 159/87 (111) 99 100 01/05/20 07:35 99 Nasal Cannula 2.0 28 01/05/20 04:00 98.8 100 17 149/84 (105) 93 01/05/20 04:00 100 17 93 01/05/20 00:00 96 15 93 01/05/20 00:00 98.2 96 15 162/88 (112) 93 01/04/20 21:00 Room Air 01/04/20 20:00 96 18 95 01/04/20 20:00 97.9 96 18 161/92 (115) 95 01/04/20 19:22 94 Nasal Cannula 2.0 28 01/04/20 16:00 97.6 101 16 140/76 (97) 96 01/04/20 16:00 101 16 96 Height (Feet): 5 Height (Inches): 1.00 Weight (Pounds): 152 General Appearance: no acute distress HEENT: normocephalic, atraumatic, anicteric, mucous membranes moist Respiratory/Chest: crackles/rales, rhonchi - bilaterally, other - some sob noted Cardiovascular: normal rate, regular rhythm, no gallop/murmur Abdomen: normal bowel sounds, soft, non tender, no organomegaly, non distended Genitourinary: other - + zheng - urine slt cloudy Extremities: no cyanosis Skin: rash - rash less to stable Neurologic/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 No focal airspace consolidation. No effusions. Normal heart size Impression: Acuity indeterminate mild interstitial disease. Correlate with clinical findings. No focal infiltrates CT abdomen and pelvis: Impression: Postsurgical changes, as described, including right lower quadrant simple ileostomy, prior total colectomy, and J-pouch. There is abundant anterior pelvic apparent defunctionalized small bowel which appears to be in continuity with and ileoanal J-pouch remnant. Most likely, this just represents old isolated small bowel, but the possibility of any of this representing either tumor or abscess is not completely excludable. Small parastomal hernia within the right lower quadrant ileostomy. This appears to be nonobstructive. Equivocal mild wall thickening of left upper quadrant jejunal loops. Enteritis is possible and correlation with clinical findings is recommended Age-indeterminate L2 vertebral body compression fracture deformity. Suspect old. Consider MRI if clinically relevant Prior cholecystectomy Inferior vena cava filter Findings discussed by phone Chest x-ray - 12/29/19 - FINDINGS: Lungs: Retrocardiac atelectasis versus infiltrate. No consolidation or interstitial edema. Pleural space: Trace left pleural effusion. Heart: Unremarkable. No cardiomegaly. Bones/joints: Unremarkable. Tubes, lines and devices: Endotracheal tube terminates 3 cm above the kyung. Left upper extremity PICC line terminates within the SVC. IMPRESSION: 1. Endotracheal tube terminates 3 cm above the kyung. 2. Left upper extremity PICC line terminates within the SVC. 3. Retrocardiac atelectasis versus infiltrate. 4. Trace left pleural effusion. Chest x-ray - 12/31/19 - Procedure: XRAY Chest 1v Procedure: XRAY Chest 1v Reason for study: Shortness of breath. Comparison films: 12/29/2019. FINDINGS: Endotracheal tube has been removed. Left PICC line remains in place. There is slight worsening of congestion and edema. Cardiac and mediastinal silhouette are within normal limits. CP angles are sharp. The bony thorax appear unremarkable. IMPRESSION: Slight worsening of congestion and edema. Chest x-ray - 01/02/20 - Procedure: XRAY Chest 1v Indication: Reason For Exam: SOB Technique: Single AP view of the chest. Comparison: Chest radiograph dated 12/31/2019 Findings: The cardiomediastinal silhouette is unchanged in appearance. No new airspace consolidation. Stable pulmonary vascular congestion. Demonstration of streaky retrocardiac airspace opacity. No pneumothorax or pleural effusion. Unchanged left PICC. IMPRESSION: No significant change from prior examination. Microbiology Date/Time Source Procedure Growth Status 01/05/20 00:48 Stool Clostridium difficile Toxin Assay - Final Complete 01/03/20 16:00 Other Gram Stain - Final Resulted 01/03/20 16:00 Wound Culture - Preliminary Gram Negative Bacillus 1 Gram Negative Bacillus 2 Resulted 01/01/20 16:00 Blood Blood Culture - Preliminary NO GROWTH AFTER 48 HOURS Resulted 12/29/19 14:00 Abdominal Fluid Gram Stain - Final Complete 12/29/19 14:00 Aerobic Culture - Final Escherichia Coli Complete 12/29/19 14:00 Abdominal Fluid Anaerobic Culture - Final NO ANAEROBES ISOLATED Complete 12/27/19 11:13 Nasopharynx SARS-CoV-2 RdRp Gene Assay - Final Complete 12/22/19 19:30 Urine,Clean Catch Urine Culture - Final Morganella Morg Spp Morganii Complete Microbiology Date/Time Source Procedure Growth Status 01/05/20 00:48 Stool Clostridium difficile Toxin Assay - Final Complete 01/03/20 16:00 Other Gram Stain - Final Resulted 01/03/20 16:00 Wound Culture - Preliminary Gram Negative Bacillus 1 Gram Negative Bacillus 2 Resulted Laboratory Tests Test 01/04/20 17:32 01/04/20 23:50 01/05/20 05:00 01/05/20 05:02 POC Whole Blood Glucose Pending 125 MG/DL (74-106) H 121 MG/DL (74-106) H White Blood Count 19.5 K/UL (4.8-10.8) H Red Blood Count 3.68 M/UL (4.20-5.40) L Hemoglobin 11.2 G/DL (12.0-16.0) L Hematocrit 33.8 % (37.0-47.0) L Mean Corpuscular Volume 92 FL (80-99) Mean Corpuscular Hemoglobin 30.4 PG (27.0-31.0) Mean Corpuscular Hemoglobin Concent 33.2 G/DL (32.0-36.0) Red Cell Distribution Width 15.7 % (11.6-14.8) H Platelet Count 361 K/UL (150-450) Mean Platelet Volume 6.7 FL (6.5-10.1) Neutrophils (%) (Auto) % (45.0-75.0) Lymphocytes (%) (Auto) % (20.0-45.0) Monocytes (%) (Auto) % (1.0-10.0) Eosinophils (%) (Auto) % (0.0-3.0) Basophils (%) (Auto) % (0.0-2.0) Differential Total Cells Counted 100 Neutrophils % (Manual) 88 % (45-75) H Lymphocytes % (Manual) 3 % (20-45) L Monocytes % (Manual) 7 % (1-10) Eosinophils % (Manual) 2 % (0-3) Basophils % (Manual) 0 % (0-2) Band Neutrophils 0 % (0-8) Platelet Estimate Adequate Platelet Morphology Normal Hypochromasia 1+ Anisocytosis 1+ Sodium Level 136 MMOL/L (136-145) Potassium Level 3.4 MMOL/L (3.5-5.1) L Chloride Level 102 MMOL/L (98-107) Carbon Dioxide Level 24 MMOL/L (21-32) Anion Gap 10 mmol/L (5-15) Blood Urea Nitrogen 30 mg/dL (7-18) H Creatinine 0.9 MG/DL (0.55-1.30) Estimat Glomerular Filtration Rate > 60 mL/min (>60) Glucose Level 126 MG/DL (74-106) H Calcium Level 8.5 MG/DL (8.5-10.1) Phosphorus Level 3.5 MG/DL (2.5-4.9) Magnesium Level 2.4 MG/DL (1.8-2.4) Total Bilirubin 0.3 MG/DL (0.2-1.0) Aspartate Amino Transf (AST/SGOT) 37 U/L (15-37) Alanine Aminotransferase (ALT/SGPT) 48 U/L (12-78) Alkaline Phosphatase 155 U/L (46-116) H Total Protein 5.9 G/DL (6.4-8.2) L Albumin 1.9 G/DL (3.4-5.0) L Globulin 4.0 g/dL Albumin/Globulin Ratio 0.5 (1.0-2.7) L Test 01/05/20 11:38 POC Whole Blood Glucose Pending Current Medications Medications (Trade) Dose Ordered Sig/Margarette Route PRN Reason Start Time Stop Time Status Last Admin Dose Admin Acetaminophen/ Butalbital/ Caffeine (Fioricet) 1 tab Q6H PRN ORAL headache 12/29/19 20:30 01/18/20 20:29 12/30/19 09:04 Al Hydroxide/Mg Hydroxide (Mylanta II) 30 ml Q6H PRN ORAL GAS/DYSPEPSIA 01/05/20 08:45 02/04/20 08:44 Amikacin Protocol (Amikacin pharmacy to dose) 1 ea DAILY PRN MISC Per rx protocol 12/29/19 20:30 01/28/20 20:29 Amikacin Sulfate 750 mg/Sodium Chloride 113 ml @ 113 mls/hr Q36H IV 01/04/20 17:00 01/10/20 04:59 01/04/20 17:32 Chlorhexidine Gluconate (Patti-Hex 2%) 1 applic DAILY@1999 TOPIC 12/29/19 20:30 03/28/20 20:29 01/04/20 20:05 Clotrimazole (Lotrimin) 1 applic BID TOPIC 12/30/19 09:00 03/20/20 10:29 01/05/20 08:18 Dextrose 1,000 ml @ 0 mls/hr Q24H PRN IV PN interrupted or unavailable 12/29/19 20:30 01/28/20 20:29 Dextrose (Dextrose 50%) 25 ml Q30M PRN IV Hypoglycemia 12/29/19 20:30 03/17/20 19:59 Dextrose (Dextrose 50%) 50 ml Q30M PRN IV Hypoglycemia 12/29/19 20:30 03/17/20 19:59 Diphenhydramine HCl (Benadryl) 25 mg Q4H PRN IVP Itching 12/30/19 21:50 01/29/20 21:49 01/02/20 21:21 Diphenhydramine HCl (Benadryl) 25 mg Q6H PRN ORAL Itching 12/29/19 20:30 01/19/20 20:29 01/04/20 23:56 Fat Emulsion Intravenous 240 ml/Amino Acids/ Electrolytes/ Dextrose 1,920 ml @ 80 mls/hr Q24H IV 12/30/19 20:00 01/27/20 19:59 01/04/20 20:06 Hydromorphone HCl 30 ml @ 0 mls/hr Q24H PRN IV For Pain 01/05/20 09:00 01/07/20 08:59 Hydromorphone HCl (Dilaudid) 1 mg Q3H PRN SUBQ Severe Breakthru Pain (>7) 01/04/20 12:00 01/11/20 11:59 Hydroxyzine HCl (Atarax) 50 mg Q6H PRN ORAL Itching 01/02/20 19:15 01/28/20 20:29 01/05/20 06:13 Insulin Aspart (NovoLOG) Q6HR SUBQ 12/30/19 00:00 03/18/20 00:00 Lansoprazole (Prevacid) 30 mg Q12HR ORAL 01/05/20 21:00 02/04/20 20:59 Metronidazole 100 ml @ 100 mls/hr Q8HR IVPB 01/02/20 22:00 01/08/20 21:59 01/05/20 05:36 Micafungin Sodium 100 mg/Sodium Chloride 110 ml @ 110 mls/hr Q24H IVPB 12/30/19 16:00 01/06/20 15:59 01/04/20 15:42 Miscellaneous Medication (MANAGEMENT SERVICES TECHNICIAN Rate Change) 1 ea DAILY PRN MISC rate change 01/05/20 09:00 01/07/20 08:59 Miscellaneous Medication (MANAGEMENT SERVICES TECHNICIAN shift volume) 1 ea Q12HR@0700,1900 MISC 01/05/20 19:00 01/07/20 18:59 Naloxone HCl (Narcan) 0.1 mg Q1M PRN IVP RR<10/min OR SBP<90 mmHg 01/01/20 09:30 03/31/20 09:29 Ondansetron HCl (Zofran) 4 mg Q4H PRN IVP Nausea & Vomiting 12/30/19 21:40 01/29/20 21:39 01/05/20 05:58 Phytonadione (Vitamin K) 10 mg ONCE A WEEK SUBQ 01/01/20 09:00 03/24/20 08:59 01/01/20 08:24 Pramipexole (Mirapex) 1 mg TWICE A DAY ORAL 12/30/19 09:00 01/16/20 17:59 01/05/20 08:17 Prochlorperazine (Compazine) 10 mg Q6H PRN IV Nausea & Vomiting 01/05/20 08:45 02/04/20 08:44 Quetiapine Fumarate (SEROqueL) 200 mg BEDTIME ORAL 12/29/19 21:00 01/31/20 20:59 01/04/20 20:05 Vancomycin HCl (Vanco pharmacy to dose) 1 ea DAILY PRN MISC Per rx protocol 12/31/19 14:00 01/30/20 13:59 Vancomycin HCl 750 mg/Sodium Chloride 250 ml @ 166.667 mls/hr Q12HR@0300,1500 IVPB 01/04/20 03:00 01/09/20 02:59 01/05/20 02:39 Kevan Burgess MD Jan 05, 2020 14:15
--- NOTE | 2020-01-05 15:47 | NUR ---
CASE MANAGEMENT:REVIEW 01/05/20 SI; S/P INTUBATION AND EXTUBATION S/P REVISION OF DEFUNCTIONALIZED SMALL BOWEL AND J POUCH AND REVISION OF ILEOSTOMY 12/28 BLEEDING FROM ILEOANAL J POUCH . POUCHITIS. BLE CELLULITIS. 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
[2020-01-05 16:00] VITALS: BP 139/95
--- NOTE | 2020-01-05 16:42 | Diagnostic Imaging Report ---
Indication: Shortness of breath Technique: One view of the chest Comparison: 01/02/2020 Findings: Again demonstrated is bilateral interstitial disease and central bronchial wall thickening, appearing unchanged. There is some atelectasis at the left lung base. The heart size is normal. Left arm PICC again demonstrated. Impression: Unchanged, over 3 days, findings as above.
--- NOTE | 2020-01-05 16:53 | Diagnostic Imaging Report ---
Indication: Pain, nausea, vomiting Technique: Supine view of the abdomen Comparison: none Findings: There are midline skin dangelo. There is an inferior vena cava filter. There are surgical clips in the pelvis. There is a surgical drain in the left lower quadrant. There is opacity of bowel gas. There appears to be a right lower quadrant ileostomy, also demonstrated on prior CT scan. Impression: Postsurgical changes, as described No acute process
[2020-01-05] MEDS: Micafungin 100 MG in NS 110 ML IVPB SCH (17:09)
--- NOTE | 2020-01-05 18:48 | NUR ---
NURSE NOTES: Ileo: 425cc liquid brown output. UO: 1425cc bernard urine output. Patient got out of bed with PT.
--- NOTE | 2020-01-05 19:31 | NUR ---
NURSE HAND-OFF: Important Events on Shift: pain management, I&O, Venous duplex, patient got out of bed with PT Patient Status: stable Diet: npo Pending Orders: n/a Pending Results/Labs:amikacin trough Pending MD notification:n/a Latest Vital Signs: Temperature 98.5 , Pulse 106 , B/P 139 /95 , Respiratory Rate 20 , O2 SAT 96 , Room Air, O2 Flow Rate 2.0 . Vital Sign Comment: n/a Latest Jimenez Fall Score: 50 Fall Risk: High Risk Safety Measures: Call light Within Reach, Bed Alarm Zone 1, Side Rails Side Rails x1, Bed position Low and Locked. Fall Precautions: Yellow Socks Door Sign Patient Fall Education Report given to Kimberly KAYE.
[2020-01-05 20:00] VITALS: BP 113/67
--- NOTE | 2020-01-05 20:10 | NUR ---
NURSES NOTE: Pt in bed, A/OX4, denies pain currently. No outward s/s of distress noted. Breathing pattern is even and unlabored on 2L nasal canula. RLQ ileo bag in place. Caban in place, draining to gravity. KELLEE PICC line in place. Dressing changed 12/31. IVF fluids running without incident. TPN to be hung at 1999. Sputum to be collected if possible. Pt aware. All due medications will be given. Bed at lowest level, call light within reach. Pt will continue to be monitored.
[2020-01-05] MEDS: QUEtiapine 200mg tab ORAL SCH (20:56)
[2020-01-05] MEDS: Dyna-Hex 2% Top Sol 2oz TOPIC SCH (20:57)
[2020-01-05] MEDS: Fat Emulsion Iv 20% 240 ML in Tpn 1,680 ML IV SCH (20:58)
[2020-01-06] VITALS: BP 102/60
[2020-01-06 04:00] VITALS: BP 109/60
[2020-01-06 04:57] LABS: BASOPHILS % (AUTO) 1.5 % (0.0-2.0); EOSINOPHILS % (AUTO) 8.6 % (0.0-3.0); HEMATOCRIT 26.5 % (37.0-47.0); HEMOGLOBIN 8.9 G/DL (12.0-16.0); LYMPHOCYTES % (AUTO) 9.9 % (20.0-45.0); MEAN CORPUSCULAR VOLUME 90 FL (80-99); MONOCYTES % (AUTO) 10.3 % (1.0-10.0); NEUTROPHILS % (AUTO) 69.8 % (45.0-75.0); PLATELET COUNT 337 K/UL (150-450); RED BLOOD COUNT 2.93 M/UL (4.20-5.40); RED CELL DISTRIBUTION WIDTH 15.6 % (11.6-14.8); WHITE BLOOD COUNT 11.3 K/UL (4.8-10.8)
[2020-01-06 05:47] LABS: ALANINE AMINOTRANSFERASE 30 U/L (12-78); ALBUMIN 1.4 G/DL (3.4-5.0); ALBUMIN/GLOBULIN RATIO 0.4 (1.0-2.7); ALKALINE PHOSPHATASE 113 U/L (46-116); ANION GAP 6 mmol/L (5-15); ASPARTATE AMINO TRANSFERASE 25 U/L (15-37); BILIRUBIN,TOTAL 0.3 MG/DL (0.2-1.0); BLOOD UREA NITROGEN 30 mg/dL (7-18); CALCIUM 7.8 MG/DL (8.5-10.1); CARBON DIOXIDE 27 MMOL/L (21-32); CHLORIDE 103 MMOL/L (98-107); CREATININE 0.9 MG/DL (0.55-1.30); POTASSIUM 3.1 MMOL/L (3.5-5.1); SODIUM 136 MMOL/L (136-145)
[2020-01-06] MEDS: NovoLOG Insulin Flexpen SUBQ SCH ×4 (06:00→18:00)
[2020-01-06] MEDS: Amikacin 750 MG in NS 110 ML IV SCH (06:53)
--- NOTE | 2020-01-06 07:30 | NUR ---
NURSE NOTES: Patient is in bed awake and able to verbalize needs. Stable. Patient has STEAM ROOM ATTENDANT button in hand and says the STEAM ROOM ATTENDANT is helping manage her pain. Patient instructed to use call light for assistance, verbalized understanding. Ileo bag intact. Surgical dressing stained. F/C patent and draining yellow urine. AMIE compressed and draining bloody output. PICC patent and running TPN and STEAM ROOM ATTENDANT as ordered. All safety measures provided. Patient stated that she has not been coughing or vomiting today. Patient is in bed in locked and lowest position with call light within reach. All needs met at this time. Will continue to monitor.
[2020-01-06] MEDS: PCA shift volume MISC SCH ×2 (07:38→19:00)
--- NOTE | 2020-01-06 07:54 | NUR ---
NURSE HAND-OFF: Important Events on Shift:[NONE] Patient Status: [STABLE] Diet: [NPO] Pending Orders: [NONE] Pending Results/Labs:[NONE] Pending MD notification:[Potassium 3.1 Hemoglobin 8.9 from 11.2 Endorsed to oncoming nurse] Latest Vital Signs: Temperature 99.1 , Pulse 102 , B/P 109 /60 , Respiratory Rate 18 , O2 SAT 93 , Nasal Cannula, O2 Flow Rate 2.0 . Vital Sign Comment: [WNL] Latest Jimenez Fall Score: 60 Fall Risk: High Risk Safety Measures: Call light Within Reach, Bed Alarm Zone 1, Side Rails Side Rails x2, Bed position Low and Locked. Fall Precautions: Yellow Socks Patient Fall Education Report given to [Sarai RN].
[2020-01-06 08:00] VITALS: BP 130/72
[2020-01-06] MEDS ORDERED: Rate Change PCA 1 Each MISC PRN (08:00)
--- NOTE | 2020-01-06 08:26 | General Progress Note ---
Progress Note Progress Note Afebrile. Feeling okay. slight decrease in swelling/edema thighs. Verbal report of venous duplex of IVC and bilat lower extr - no clots, has IVC filter from years ago Abdomen soft, persistent drainage from incision though decreased + for organisms on C&S Thigh edema less tense Urine 2725 Ileostomy 585 AMIE 10 WBC down 11,300 Hgb down 8.9 K 3.1 Mg 1.6 BUN 30 Cr 0.9 albumin 1.4 Imp: Wound drainage + bilateral thigh edema Plan: CT scan abd+pelvis KCL infusion, Mg infusion continue npo, zheng, TPN Gio Mckeon MD Jan 06, 2020 08:26
[2020-01-06] MEDS ORDERED: Omnipaque-300 100ml vial INJ PRN (08:30)
[2020-01-06] MEDS: Pramipexole 0.5mg tab ORAL SCH ×2 (08:36→18:03)
--- NOTE | 2020-01-06 10:47 | NUR ---
NURSE NOTES: patient taken to CT.
--- NOTE | 2020-01-06 11:06 | Diagnostic Imaging Report ---
Indication: Bilateral lower extremity edema Technique: Grayscale and duplex images of the bilateral lower extremity veins Comparison: 01/06/2020 unilateral left leg exam Findings: Exam is limited, due to excessive edema of the lower extremities. Bilaterally, grayscale and duplex images demonstrate no evidence of intraluminal thrombus. Normal phasic Doppler waveforms, demonstrating normal augmentation response and no evidence of valvular insufficiency. Greater saphenous vein(s) and tibial veins are patent. Normal compressibility. No significant change Impression: Negative for evidence of lower extremity deep venous thrombosis bilaterally
--- NOTE | 2020-01-06 11:57 | Diagnostic Imaging Report ---
Clinical Indication: Drainage from abdominal wound. History of recent ileostomy revision surgery Technique: Patient given oral contrast. IV administration nonionic contrast. Venous phase spiral acquisition obtained through the abdomen and pelvis. Multiplanar reconstructions were generated. Total dose length product 790 mGycm. CTDIvol(s) 16 mGy. Dose reduction achieved using automated exposure control Comparison: 12/18/2019 Findings: There is evidence of intraluminal abdominal surgery, with a midline skin staple line present. A few small scattered areas of gas and fluid are seen along the incision. There is evidence of interim revision of previously demonstrated right lower quadrant ileostomy, with reduction of the previously demonstrated peristomal hernia. There are questionably a few tiny bubbles of intraperitoneal gas. Trace intraperitoneal fluid is seen along the lower abdominal/upper pelvic midline. A surgical drain is seen in the left lower quadrant. A rectosigmoid stump is again demonstrated. Ingested contrast has traversed the proximal small bowel but not entirely. Small bowel loops are nondilated and there is no small bowel wall thickening. The stomach and distal esophagus are unremarkable. There is extensive edema of the bilateral flank and anterior lower pelvic region subcutaneous fat. This is a new finding. Interim development of bilateral pleural effusions. These result in compressive atelectasis of a considerable portion of the lower lobes. The liver is unremarkable. The gallbladder has been removed. The bile ducts are nondilated. The pancreas is unremarkable. The spleen is atrophic. The adrenals and kidneys are unremarkable. No retroperitoneal or mesenteric mass or adenopathy. No pelvic mass or adenopathy. There is evidence of a right ovarian collapsed follicle. The bladder contains a Caban catheter. Gas within the bladder lumen is presumably related to Caban catheter. There is an inferior vena cava filter in place. The inferior vena cava appears to be patent. Old healed fracture deformity of the left pubic bone is again demonstrated. Stable compression fracture deformity of the L2 vertebral body and degenerative spondylosis changes are again noted. Impression: Postsurgical changes, as described. Small amount of fluid and gas is seen along the incision no definite incisional. Incidental abscess demonstrated. Slow traversal of contrast small bowel but no definite evidence of small bowel obstruction Interim Caban catheter placement Other findings as noted, including stable old healed fracture deformity left pubic bone, inferior vena cava filter, prior cholecystectomy, L2 vertebral body compression fracture The CT scanner at [facility] is accredited by the [employer] and the scans are performed using protocols designed to limit radiation exposure to as low as reasonably achievable to attain images of sufficient resolution adequate for diagnostic evaluation.
[2020-01-06 12:00] VITALS: BP 131/71
--- NOTE | 2020-01-06 14:43 | Infectious Diseases Prog Note ---
Assessment/Plan Assessment/Plan ASSESSMENT AND PLAN: 1. e.coli uti, morganella uti, left leg cellulitis, ? reaction/atypical drug rash to aztreonam, allergies - ampicillin, tetracycline s/p surgery on 12/29/19 - significant leukocytosis, ? sepsis vs post-surgical leukocytosis fungemia risk, TPN atelectasis vs pna (aspiration/hcap) intra-abdominal fluid culture, ? abscess - e.coli, s-amikacin elevated Ck noted - ? daptomycin - held - ck level less wound drainage per surgery note - ? wound infection - gram neg growing so far - amikacin, flagyl, micafungin - day # 7 post-op, discontinue vancomycin since no mrsa growing from culture - f/u on wound culture -e.coli/proteus - check sensitivities, d/w micro to check for amikacin - monitor labs, leukocytosis, chest x-ray, f/u on sputum culture - wbc trending downward but still high - d/w Dr. Mckeon - d/w RN and patient 2. skin care per protocol - ? fungal component, on clotrimazole cream 3. 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 4. History of Narcisa ileostomy. 5. History of ulcerative colitis. 6. History of multiple abdominal surgeries. 7. History of cholecystectomy. 8. History of peristomal hernia and mesh. 9. History of colectomy. 10. Continue treatment per Dr. Mckeon and consultants. 11. Allergies to ampicillin, tetracycline. She gets hives with ampicillin. 12. Social history is negative. 13. Family history is noncontributory. 14. MAR is noted. 15. Case was discussed with RN. 16. Case was discussed with Dr. Mckeon. 17. Case was discussed with the patient. Subjective Constitutional: Denies: fever HEENT: Denies: congestion Respiratory: Denies: shortness of breath Cardiovascular: Denies: chest pain Gastrointestinal/Abdominal: Denies: nausea Genitourinary: Reports: other - + zheng Allergies: Coded Allergies: AMPICILLIN (Verified Allergy, Unknown, 12/17/19) TETRACYCLINE (Verified Allergy, Unknown, 12/17/19) Objective Last 24 Hour Vital Signs Date Time Temp Pulse Resp B/P (MAP) Pulse Ox O2 Delivery O2 Flow Rate FiO2 01/06/20 12:00 99.5 112 18 131/71 (91) 98 01/06/20 12:00 112 18 98 01/06/20 08:00 98.0 73 18 130/72 (91) 95 01/06/20 08:00 73 18 95 01/06/20 04:00 102 18 93 01/06/20 04:00 99.1 101 17 109/60 (76) 93 101 01/06/20 00:00 98.6 102 17 102/60 (74) 93 102 01/06/20 00:00 102 18 93 01/05/20 21:00 Nasal Cannula 2.0 01/05/20 20:34 98 Nasal Cannula 2.0 28 01/05/20 20:00 98.8 105 16 113/67 (82) 96 01/05/20 20:00 106 20 96 01/05/20 16:00 98.5 106 20 139/95 (110) 96 01/05/20 16:00 106 20 96 Height (Feet): 5 Height (Inches): 1.00 Weight (Pounds): 152 General Appearance: no acute distress HEENT: normocephalic, atraumatic, anicteric Respiratory/Chest: lungs clear, normal breath sounds, no respiratory distress Cardiovascular: normal rate, regular rhythm Abdomen: normal bowel sounds, soft, non tender, no organomegaly Chest x-ray - Procedure: XRAY Chest 1v Indication: Cough Technique: One view of the chest Comparison: none Findings: There is diffuse mild bilateral interstitial disease and central bronchial wall thickening. No focal airspace consolidation. No effusions. Normal heart size Impression: Acuity indeterminate mild interstitial disease. Correlate with clinical findings. No focal infiltrates CT abdomen and pelvis: Impression: Postsurgical changes, as described, including right lower quadrant simple ileostomy, prior total colectomy, and J-pouch. There is abundant anterior pelvic apparent defunctionalized small bowel which appears to be in continuity with and ileoanal J-pouch remnant. Most likely, this just represents old isolated small bowel, but the possibility of any of this representing either tumor or abscess is not completely excludable. Small parastomal hernia within the right lower quadrant ileostomy. This appears to be nonobstructive. Equivocal mild wall thickening of left upper quadrant jejunal loops. Enteritis is possible and correlation with clinical findings is recommended Age-indeterminate L2 vertebral body compression fracture deformity. Suspect old. Consider MRI if clinically relevant Prior cholecystectomy Inferior vena cava filter Findings discussed by phone Chest x-ray - 12/29/19 - FINDINGS: Lungs: Retrocardiac atelectasis versus infiltrate. No consolidation or interstitial edema. Pleural space: Trace left pleural effusion. Heart: Unremarkable. No cardiomegaly. Bones/joints: Unremarkable. Tubes, lines and devices: Endotracheal tube terminates 3 cm above the kyung. Left upper extremity PICC line terminates within the SVC. IMPRESSION: 1. Endotracheal tube terminates 3 cm above the kyung. 2. Left upper extremity PICC line terminates within the SVC. 3. Retrocardiac atelectasis versus infiltrate. 4. Trace left pleural effusion. Chest x-ray - 12/31/19 - Procedure: XRAY Chest 1v Procedure: XRAY Chest 1v Reason for study: Shortness of breath. Comparison films: 12/29/2019. FINDINGS: Endotracheal tube has been removed. Left PICC line remains in place. There is slight worsening of congestion and edema. Cardiac and mediastinal silhouette are within normal limits. CP angles are sharp. The bony thorax appear unremarkable. IMPRESSION: Slight worsening of congestion and edema. Chest x-ray - 01/02/20 - Procedure: XRAY Chest 1v Indication: Reason For Exam: SOB Technique: Single AP view of the chest. Comparison: Chest radiograph dated 12/31/2019 Findings: The cardiomediastinal silhouette is unchanged in appearance. No new airspace consolidation. Stable pulmonary vascular congestion. Demonstration of streaky retrocardiac airspace opacity. No pneumothorax or pleural effusion. Unchanged left PICC. IMPRESSION: No significant change from prior examination. Microbiology Date/Time Source Procedure Growth Status 01/05/20 00:48 Stool Clostridium difficile Toxin Assay - Final Complete 01/03/20 16:00 Other Gram Stain - Final Resulted 01/03/20 16:00 Wound Culture - Preliminary Escherichia Coli Proteus Mirabilis Resulted Laboratory Tests Test 01/05/20 18:32 01/06/20 00:18 01/06/20 04:30 01/06/20 05:41 POC Whole Blood Glucose Pending 107 MG/DL (74-106) H Pending White Blood Count 11.3 K/UL (4.8-10.8) H Red Blood Count 2.93 M/UL (4.20-5.40) L Hemoglobin 8.9 G/DL (12.0-16.0) L Hematocrit 26.5 % (37.0-47.0) L Mean Corpuscular Volume 90 FL (80-99) Mean Corpuscular Hemoglobin 30.4 PG (27.0-31.0) Mean Corpuscular Hemoglobin Concent 33.6 G/DL (32.0-36.0) Red Cell Distribution Width 15.6 % (11.6-14.8) H Platelet Count 337 K/UL (150-450) Mean Platelet Volume 7.0 FL (6.5-10.1) Neutrophils (%) (Auto) 69.8 % (45.0-75.0) Lymphocytes (%) (Auto) 9.9 % (20.0-45.0) L Monocytes (%) (Auto) 10.3 % (1.0-10.0) H Eosinophils (%) (Auto) 8.6 % (0.0-3.0) H Basophils (%) (Auto) 1.5 % (0.0-2.0) Sodium Level 136 MMOL/L (136-145) Potassium Level 3.1 MMOL/L (3.5-5.1) L Chloride Level 103 MMOL/L (98-107) Carbon Dioxide Level 27 MMOL/L (21-32) Anion Gap 6 mmol/L (5-15) Blood Urea Nitrogen 30 mg/dL (7-18) H Creatinine 0.9 MG/DL (0.55-1.30) Estimat Glomerular Filtration Rate > 60 mL/min (>60) Glucose Level 114 MG/DL (74-106) H Calcium Level 7.8 MG/DL (8.5-10.1) L Phosphorus Level 3.0 MG/DL (2.5-4.9) Magnesium Level 1.9 MG/DL (1.8-2.4) Total Bilirubin 0.3 MG/DL (0.2-1.0) Aspartate Amino Transf (AST/SGOT) 25 U/L (15-37) Alanine Aminotransferase (ALT/SGPT) 30 U/L (12-78) Alkaline Phosphatase 113 U/L (46-116) Total Protein 4.6 G/DL (6.4-8.2) L Albumin 1.4 G/DL (3.4-5.0) L Globulin 3.2 g/dL Albumin/Globulin Ratio 0.4 (1.0-2.7) L Amikacin Level Trough 5.1 ug/mL (4.0-8.0) Test 01/06/20 11:40 POC Whole Blood Glucose Pending Current Medications Medications (Trade) Dose Ordered Sig/Margarette Route PRN Reason Start Time Stop Time Status Last Admin Dose Admin Acetaminophen/ Butalbital/ Caffeine (Fioricet) 1 tab Q6H PRN ORAL headache 12/29/19 20:30 01/18/20 20:29 12/30/19 09:04 Al Hydroxide/Mg Hydroxide (Mylanta II) 30 ml Q6H PRN ORAL GAS/DYSPEPSIA 01/05/20 08:45 02/04/20 08:44 Amikacin Protocol (Amikacin pharmacy to dose) 1 ea DAILY PRN MISC Per rx protocol 12/29/19 20:30 01/28/20 20:29 Amikacin Sulfate 750 mg/Sodium Chloride 113 ml @ 113 mls/hr Q36H IV 01/04/20 17:00 01/10/20 04:59 01/06/20 06:53 Barium Sulfate (Readi-Cat 2) 450 ml NOW PRN ORAL Radiology Procedure 01/06/20 08:30 01/08/20 08:29 Chlorhexidine Gluconate (Patti-Hex 2%) 1 applic DAILY@1999 TOPIC 12/29/19 20:30 03/28/20 20:29 01/05/20 20:57 Clotrimazole (Lotrimin) 1 applic BID TOPIC 12/30/19 09:00 03/20/20 10:29 01/06/20 08:40 Dextrose 1,000 ml @ 0 mls/hr Q24H PRN IV PN interrupted or unavailable 12/29/19 20:30 01/28/20 20:29 Dextrose (Dextrose 50%) 25 ml Q30M PRN IV Hypoglycemia 12/29/19 20:30 03/17/20 19:59 Dextrose (Dextrose 50%) 50 ml Q30M PRN IV Hypoglycemia 12/29/19 20:30 03/17/20 19:59 Diphenhydramine HCl (Benadryl) 25 mg Q4H PRN IVP Itching 12/30/19 21:50 01/29/20 21:49 01/02/20 21:21 Diphenhydramine HCl (Benadryl) 25 mg Q6H PRN ORAL Itching 12/29/19 20:30 01/19/20 20:29 01/06/20 11:33 Fat Emulsion Intravenous 240 ml/Amino Acids/ Electrolytes/ Dextrose 1,920 ml @ 80 mls/hr Q24H IV 12/30/19 20:00 01/27/20 19:59 01/05/20 20:58 Hydromorphone HCl 30 ml @ 0 mls/hr Q24H PRN IV For Pain 01/06/20 09:00 01/08/20 08:59 Hydromorphone HCl (Dilaudid) 1 mg Q3H PRN SUBQ Severe Breakthru Pain (>7) 01/04/20 12:00 01/11/20 11:59 Hydroxyzine HCl (Atarax) 50 mg Q6H PRN ORAL Itching 01/02/20 19:15 01/28/20 20:29 01/05/20 06:13 Insulin Aspart (NovoLOG) Q6HR SUBQ 12/30/19 00:00 03/18/20 00:00 Iohexol (OMNIPAQUE-300 100ml) 100 ml NOW PRN INJ Radiology Procedure 01/06/20 08:30 01/08/20 08:29 Lansoprazole (Prevacid) 30 mg Q12HR ORAL 01/05/20 21:00 02/04/20 20:59 01/06/20 08:36 Metronidazole 100 ml @ 100 mls/hr Q8HR IVPB 01/02/20 22:00 01/08/20 21:59 01/06/20 14:20 Micafungin Sodium 100 mg/Sodium Chloride 110 ml @ 110 mls/hr Q24H IVPB 01/05/20 16:00 01/12/20 15:59 01/05/20 17:09 Miscellaneous Medication (DESIGN LEAD Rate Change) 1 ea DAILY PRN MISC rate change 01/06/20 08:00 01/08/20 07:59 Miscellaneous Medication (DESIGN LEAD shift volume) 1 ea Q12HR@0700,1900 MISC 01/06/20 19:00 01/08/20 18:59 Naloxone HCl (Narcan) 0.1 mg Q1M PRN IVP RR<10/min OR SBP<90 mmHg 01/01/20 09:30 03/31/20 09:29 Ondansetron HCl (Zofran) 4 mg Q4H PRN IVP Nausea & Vomiting 12/30/19 21:40 01/29/20 21:39 01/06/20 11:33 Phytonadione (Vitamin K) 10 mg ONCE A WEEK SUBQ 01/01/20 09:00 03/24/20 08:59 01/01/20 08:24 Pramipexole (Mirapex) 1 mg TWICE A DAY ORAL 12/30/19 09:00 01/16/20 17:59 01/06/20 08:36 Prochlorperazine (Compazine) 10 mg Q6H PRN IV Nausea & Vomiting 01/05/20 08:45 02/04/20 08:44 01/06/20 05:56 Quetiapine Fumarate (SEROqueL) 200 mg BEDTIME ORAL 12/29/19 21:00 01/31/20 20:59 01/05/20 20:56 Vancomycin HCl (Vanco pharmacy to dose) 1 ea DAILY PRN MISC Per rx protocol 12/31/19 14:00 01/30/20 13:59 Vancomycin HCl 750 mg/Sodium Chloride 250 ml @ 166.667 mls/hr Q12HR@0300,1500 IVPB 01/04/20 03:00 01/09/20 02:59 01/06/20 14:20 Kevan Burgess MD Jan 06, 2020 14:43
[2020-01-06 15:57] VITALS: BP 107/58
[2020-01-06] MEDS: DiphenhydrAMINE 50mg/ml Inj IVP PRN (16:18)
[2020-01-06] MEDS: Micafungin 100 MG in NS 110 ML IVPB SCH (16:57)
[2020-01-06] MEDS: HydrOXYzine tab 25mg tab ORAL PRN (18:02)
[2020-01-06] MEDS: PCA HYDROmorphone 1mg/ml 30 ML IV PRN (18:06)
--- NOTE | 2020-01-06 19:00 | NUR ---
NURSE NOTES: ileo: 225cc greenish brown output. UO: 2900cc bernard urine output. AMIE: 2.5cc bloody output. Dressing changed x1 by RN, ileo bag changed by RN. Patient encouraged to do ROM. Patient c/o too much pain.
[2020-01-06] MEDS: HYDROmorphone 1mg/ml Carpuject SUBQ PRN (19:05)
--- NOTE | 2020-01-06 19:30 | NUR ---
NURSE HAND-OFF: Important Events on Shift:TPN, pain management, tejas care Patient Status: stable Diet: npo Pending Orders: n/a Pending Results/Labs:n/a Pending MD notification:n/a Latest Vital Signs: Temperature 97.1 , Pulse 96 , B/P 107 /58 , Respiratory Rate 20 , O2 SAT 99 , Nasal Cannula, O2 Flow Rate 2.0 . Vital Sign Comment: n/a Latest Jimenez Fall Score: 60 Fall Risk: High Risk Safety Measures: Call light Within Reach, Side Rails x2, Bed position Low and Locked. Fall Precautions: Yellow Socks Patient Fall Education Report given to Kimberly KAYE.
[2020-01-06 20:00] VITALS: BP 123/60
[2020-01-06] MEDS: Dyna-Hex 2% Top Sol 2oz TOPIC SCH (20:05)
[2020-01-06] MEDS: QUEtiapine 200mg tab ORAL SCH (20:05)
[2020-01-06] MEDS: Fat Emulsion Iv 20% 240 ML in Tpn 1,680 ML IV SCH (20:06)
--- NOTE | 2020-01-06 21:35 | NUR ---
NURSES NOTE: Pt in bed, A/OX4, denies pain currently. No outward s/s of distress noted. Vital signs within normal limits, on RA. Breathing pattern is even and unlabored. CHIEF LIBRARIAN MUSIC DEPARTMENT pump, Morphine, is in place. Pt states current medication regimen is effective. RLQ Ileo bag in place. Changed during day shift today. Caban in place, draining to gravity. PICC line KELLEE, in place, no s/s of infection. Infusing TPN and IVF without incident. Bilateral thigh Edema noted. All due medications will be given. Bed at lowest level. Call light within reach. Pt will continue to be monitored.
[2020-01-07 04:00] VITALS: BP 116/59
[2020-01-07 05:41] LABS: EOSINOPHILS % (AUTO) 8.5 % (0.0-3.0); HEMOGLOBIN 8.8 G/DL (12.0-16.0); LYMPHOCYTES % (AUTO) 11.7 % (20.0-45.0); MEAN CORPUSCULAR VOLUME 90 FL (80-99); MONOCYTES % (AUTO) 10.3 % (1.0-10.0); NEUTROPHILS % (AUTO) 68.6 % (45.0-75.0); PLATELET COUNT 385 K/UL (150-450); RED BLOOD COUNT 2.87 M/UL (4.20-5.40); RED CELL DISTRIBUTION WIDTH 15.3 % (11.6-14.8); WHITE BLOOD COUNT 10.4 K/UL (4.8-10.8)
[2020-01-07 05:57] LABS: ALBUMIN 1.4 G/DL (3.4-5.0); ALBUMIN/GLOBULIN RATIO 0.5 (1.0-2.7); BILIRUBIN,TOTAL 0.3 MG/DL (0.2-1.0); CALCIUM 7.7 MG/DL (8.5-10.1); PHOSPHORUS 3.1 MG/DL (2.5-4.9); POTASSIUM 3.6 MMOL/L (3.5-5.1)
[2020-01-07] MEDS: NovoLOG Insulin Flexpen SUBQ SCH ×5 (06:00→23:56)
--- NOTE | 2020-01-07 06:32 | NUR ---
NURSE HAND-OFF: Important Events on Shift:[NONE] Patient Status: [STABLE] Diet: [BCIR LOW RESIDUE] Pending Orders: [NONE] Pending Results/Labs:[NONE] Pending MD notification:[Mag 1.6, Hgb 8.8] Latest Vital Signs: Temperature 99.8 , Pulse 104 , B/P 116 /59 , Respiratory Rate 18 , O2 SAT 92 , Room Air, O2 Flow Rate 2.0 . Vital Sign Comment: [WNL] Latest Jimenez Fall Score: 60 Fall Risk: High Risk Safety Measures: Call light Within Reach, Bed Alarm Zone 1, Side Rails Side Rails x2, Bed position Low and Locked. Fall Precautions: Yellow Socks Patient Fall Education Report given to [].
[2020-01-07] MEDS: PCA shift volume MISC SCH ×2 (07:17→19:00)
--- NOTE | 2020-01-07 07:19 | NUR ---
HAND OFF: Report given to VARGAS Moon.
--- NOTE | 2020-01-07 07:30 | NUR ---
NURSE NOTES: Patient is in bed asleep. Stable. Breathing is even and unlabored. No visible signs of distress noted. PICC patent and running TPN and ASSISTANT PRESS OPERATOR as ordered. All safety measures provided. Patient is in bed in locked and lowest position with call light within reach and trapeze overhead. Will continue to monitor.
[2020-01-07 08:00] VITALS: BP 136/72
[2020-01-07] MEDS: Pramipexole 0.5mg tab ORAL SCH ×2 (09:22→17:49)
--- NOTE | 2020-01-07 10:56 | NUR ---
NURSE NOTES: ESBL results reported to dr. gan. No new orders at this time. I/s at bedside.
[2020-01-07 12:00] VITALS: BP 116/58
--- NOTE | 2020-01-07 12:05 | General Progress Note ---
Progress Note Progress Note AVSS tolerating clear liquids Abdomen soft, flat, continued seropurulent drainage from incision Stoma stable Flank, buttocks and thigh edema still pronounced despite diuresis ongoing Urine 4300 Ileostomy 425 AMIE 5cc WBC 10,400 Hgb 8.8 stable Na 131 Mg 1.6 albumin 1.4 Imp: Ileus Body wall edema Abdominal fluid drainage - on antibiotics Plan: continue current regimen advance to full liquid diet Lasix 40mg IV this AM Gio Mckeon MD Jan 07, 2020 12:05
--- NOTE | 2020-01-07 12:20 | Pulmonology Progress Note ---
Subjective ROS Limited/Unobtainable: No Interval Events: Extubated ; doing well; now in 3E Constitutional: Denies: fever HEENT: Repors: no symptoms Respiratory: Reports: no symptoms Cardiovascular: Reports: no symptoms Gastrointestinal/Abdominal: Denies: nausea Genitourinary: Reports: no symptoms Psychiatric: Denies: depression Skin: Reports: rash - no new rash Musculoskeletal: Denies: pain Allergies: Coded Allergies: AMPICILLIN (Verified Allergy, Unknown, 12/17/19) TETRACYCLINE (Verified Allergy, Unknown, 12/17/19) Objective Last 24 Hour Vital Signs Date Time Temp Pulse Resp B/P (MAP) Pulse Ox O2 Delivery O2 Flow Rate FiO2 01/07/20 08:00 99.4 103 18 136/72 (93) 100 01/07/20 07:45 100 Nasal Cannula 2.0 28 01/07/20 04:00 99.8 104 18 116/59 (78) 92 104 01/06/20 21:00 Room Air 01/06/20 20:15 99 Nasal Cannula 2.0 28 01/06/20 20:00 98.2 101 18 123/60 (81) 92 101 01/06/20 20:00 101 20 92 01/06/20 16:00 96 20 99 01/06/20 15:57 97.1 96 20 107/58 (74) 99 96 Intake and Output 01/06/20 01/07/20 19:00 07:00 Output Total 3127 ml 1603 ml Balance -3127 ml -1603 ml Output Urine Total 2900 ml 1400 ml Drainage Total 2 ml 3 ml Other 225 ml 200 ml General Appearance: no acute distress Respiratory: chest wall non-tender Cardiovascular: normal peripheral pulses Abdomen: soft, non tender Microbiology Date/Time Source Procedure Growth Status 01/05/20 00:48 Stool Clostridium difficile Toxin Assay - Final Complete Laboratory Tests 01/06/20 17:58: POC Whole Blood Glucose [Pending] 01/07/20 00:11: POC Whole Blood Glucose 111H 01/07/20 05:10: White Blood Count 10.4, Red Blood Count 2.87L, Hemoglobin 8.8L, Hematocrit 26.0L , Mean Corpuscular Volume 90, Mean Corpuscular Hemoglobin 30.7, Mean Corpuscular Hemoglobin Concent 33.9, Red Cell Distribution Width 15.3H, Platelet Count 385, Mean Platelet Volume 7.2, Neutrophils (%) (Auto) 68.6, Lymphocytes (%) (Auto) 11.7L, Monocytes (%) (Auto) 10.3H, Eosinophils (%) (Auto) 8.5H, Basophils (%) (Auto) 1.0, Sodium Level 131L, Potassium Level 3.6, Chloride Level 98, Carbon Dioxide Level 29, Anion Gap 4L, Blood Urea Nitrogen 28H, Creatinine 1.0, Estimat Glomerular Filtration Rate 56.5, Glucose Level 110H, Calcium Level 7.7L, Phosphorus Level 3.1, Magnesium Level 1.6L, Total Bilirubin 0.3, Aspartate Amino Transf (AST/SGOT) 21, Alanine Aminotransferase (ALT/SGPT) 28, Alkaline Phosphatase 131H, Total Protein 4.3L, Albumin 1.4L, Globulin 2.9, Albumin/Globulin Ratio 0.5L 01/07/20 05:39: POC Whole Blood Glucose 107H 01/07/20 11:42: POC Whole Blood Glucose [Pending] Current Medications Medications (Trade) Dose Ordered Sig/Margarette Route PRN Reason Start Time Stop Time Status Last Admin Dose Admin Acetaminophen/ Butalbital/ Caffeine (Fioricet) 1 tab Q6H PRN ORAL headache 12/29/19 20:30 01/18/20 20:29 12/30/19 09:04 Al Hydroxide/Mg Hydroxide (Mylanta II) 30 ml Q6H PRN ORAL GAS/DYSPEPSIA 01/05/20 08:45 02/04/20 08:44 Amikacin Protocol (Amikacin pharmacy to dose) 1 ea DAILY PRN MISC Per rx protocol 12/29/19 20:30 01/28/20 20:29 Amikacin Sulfate 750 mg/Sodium Chloride 113 ml @ 113 mls/hr Q36H IV 01/04/20 17:00 01/10/20 04:59 01/06/20 06:53 Barium Sulfate (Readi-Cat 2) 450 ml NOW PRN ORAL Radiology Procedure 01/06/20 08:30 01/08/20 08:29 Chlorhexidine Gluconate (Patti-Hex 2%) 1 applic DAILY@2000 TOPIC 12/29/19 20:30 03/28/20 20:29 01/06/20 20:05 Clotrimazole (Lotrimin) 1 applic BID TOPIC 12/30/19 09:00 03/20/20 10:29 01/07/20 09:22 Dextrose 1,000 ml @ 0 mls/hr Q24H PRN IV PN interrupted or unavailable 12/29/19 20:30 01/28/20 20:29 Dextrose (Dextrose 50%) 25 ml Q30M PRN IV Hypoglycemia 12/29/19 20:30 03/17/20 19:59 Dextrose (Dextrose 50%) 50 ml Q30M PRN IV Hypoglycemia 12/29/19 20:30 03/17/20 19:59 Diphenhydramine HCl (Benadryl) 25 mg Q4H PRN IVP Itching 12/30/19 21:50 01/29/20 21:49 01/06/20 16:18 Diphenhydramine HCl (Benadryl) 25 mg Q6H PRN ORAL Itching 12/29/19 20:30 01/19/20 20:29 01/07/20 11:39 Fat Emulsion Intravenous 240 ml/Amino Acids/ Electrolytes/ Dextrose 1,920 ml @ 80 mls/hr Q24H IV 12/30/19 20:00 01/27/20 19:59 01/06/20 20:06 Hydromorphone HCl 30 ml @ 0 mls/hr Q24H PRN IV For Pain 01/06/20 09:00 01/08/20 08:59 01/06/20 18:06 Hydromorphone HCl (Dilaudid) 1 mg Q3H PRN SUBQ Severe Breakthru Pain (>7) 01/04/20 12:00 01/11/20 11:59 01/06/20 19:05 Hydroxyzine HCl (Atarax) 50 mg Q6H PRN ORAL Itching 01/02/20 19:15 01/28/20 20:29 01/06/20 18:02 Insulin Aspart (NovoLOG) Q6HR SUBQ 12/30/19 00:00 03/18/20 00:00 Iohexol (OMNIPAQUE-300 100ml) 100 ml NOW PRN INJ Radiology Procedure 01/06/20 08:30 01/08/20 08:29 Lansoprazole (Prevacid) 30 mg Q12HR ORAL 01/05/20 21:00 02/04/20 20:59 01/07/20 09:22 Magnesium Sulfate 100 ml @ 100 mls/hr Q1H IVPB 01/07/20 09:00 01/07/20 12:59 01/07/20 11:40 Metronidazole 100 ml @ 100 mls/hr Q8HR IVPB 01/06/20 22:00 01/12/20 21:59 01/07/20 05:46 Micafungin Sodium 100 mg/Sodium Chloride 110 ml @ 110 mls/hr Q24H IVPB 01/05/20 16:00 01/12/20 15:59 01/06/20 16:57 Miscellaneous Medication (SMALL MACHINE BINDERY OPERATOR Rate Change) 1 ea DAILY PRN MISC rate change 01/06/20 08:00 01/08/20 07:59 Miscellaneous Medication (SMALL MACHINE BINDERY OPERATOR shift volume) 1 ea Q12HR@0700,1900 MISC 01/06/20 19:00 01/08/20 18:59 01/07/20 07:17 Naloxone HCl (Narcan) 0.1 mg Q1M PRN IVP RR<10/min OR SBP<90 mmHg 01/01/20 09:30 03/31/20 09:29 Ondansetron HCl (Zofran) 4 mg Q4H PRN IVP Nausea & Vomiting 12/30/19 21:40 01/29/20 21:39 01/06/20 11:33 Phytonadione (Vitamin K) 10 mg ONCE A WEEK SUBQ 01/01/20 09:00 03/24/20 08:59 01/01/20 08:24 Pramipexole (Mirapex) 1 mg TWICE A DAY ORAL 12/30/19 09:00 01/16/20 17:59 01/07/20 09:22 Prochlorperazine (Compazine) 10 mg Q6H PRN IV Nausea & Vomiting 01/05/20 08:45 02/04/20 08:44 01/06/20 20:05 Quetiapine Fumarate (SEROqueL) 200 mg BEDTIME ORAL 12/29/19 21:00 01/31/20 20:59 01/06/20 20:05 Assessment/Plan Assessment/Plan IMPRESSION: 1. Status post re-intubation. 2. Status post extubation. 3. Status post laparotomy. 4. Ulcerative colitis. 5. GERD. DISCUSSION: Postoperative care per Dr. Mckeon Continue oxygen and pulmonary hygiene. I will follow carefully. Pain control. DVT prophylaxis. GI prophylaxis. CT abd shows bilateral pleural effusions with compressive atelectasis Advised to intensify pulmonary hygiene with IS Will follow Currently asymptomatic from pulmonary perspective On low flow O2 Onesimo Perales Omar Syed MD Jan 07, 2020 12:20
--- NOTE | 2020-01-07 15:48 | NUR ---
CASE MANAGEMENT:REVIEW 01/07/20 SI; ILEUS . S/P INTUBATION AND EXTUBATION S/P REVISION OF DEFUNCTIONALIZED SMALL BOWEL AND J POUCH AND REVISION OF ILEOSTOMY 12/28 BLEEDING FROM ILEOANAL J POUCH . POUCHITIS. BLE CELLULITIS. 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
[2020-01-07 16:00] VITALS: BP 118/72
[2020-01-07] MEDS: Micafungin 100 MG in NS 110 ML IVPB SCH (16:25)
--- NOTE | 2020-01-07 17:47 | Infectious Diseases Prog Note ---
Assessment/Plan Assessment/Plan ASSESSMENT AND PLAN: 1. e.coli uti, morganella uti, left leg cellulitis, ? reaction/atypical drug rash to aztreonam, allergies - ampicillin, tetracycline s/p surgery on 12/29/19 - significant leukocytosis, ? sepsis vs post-surgical leukocytosis fungemia risk, TPN atelectasis vs pna (aspiration/hcap) intra-abdominal fluid culture, ? abscess - e.coli, s-amikacin elevated Ck noted - ? daptomycin - held - ck level less wound drainage per surgery note - ? wound infection - wound culture with e.coli and esbl proteus both sensitive to amikacin CT noted - incidental abscess per report - amikacin, flagyl, micafungin - day # 8 post-op, discontinue vancomycin since no mrsa growing from culture - monitor labs, cr, cbc - leukocytosis resolved - management per Dr. Mckeon - d/w RN and patient 2. skin care per protocol - ? fungal component, on clotrimazole cream 3. 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 4. History of Narcisa ileostomy. 5. History of ulcerative colitis. 6. History of multiple abdominal surgeries. 7. History of cholecystectomy. 8. History of peristomal hernia and mesh. 9. History of colectomy. 10. Continue treatment per Dr. Mckeon and consultants. 11. Allergies to ampicillin, tetracycline. She gets hives with ampicillin. 12. Social history is negative. 13. Family history is noncontributory. 14. MAR is noted. 15. Case was discussed with RN. 16. Case was discussed with Dr. Mckeon. 17. Case was discussed with the patient. Subjective Constitutional: Denies: fever HEENT: Denies: congestion Respiratory: Denies: shortness of breath Cardiovascular: Denies: chest pain Gastrointestinal/Abdominal: Denies: nausea, vomiting Genitourinary: Reports: other - + zheng Neurologic: Denies: headache Psychiatric: Reports: other - NA Skin: Denies: rash Hematologic: Denies: bleeding Musculoskeletal: Denies: pain Allergies: Coded Allergies: AMPICILLIN (Verified Allergy, Unknown, 12/17/19) TETRACYCLINE (Verified Allergy, Unknown, 12/17/19) Objective Last 24 Hour Vital Signs Date Time Temp Pulse Resp B/P (MAP) Pulse Ox O2 Delivery O2 Flow Rate FiO2 01/07/20 12:00 98.4 101 18 116/58 (77) 96 01/07/20 08:00 99.4 103 18 136/72 (93) 100 01/07/20 07:45 100 Nasal Cannula 2.0 28 01/07/20 04:00 99.8 104 18 116/59 (78) 92 104 01/06/20 21:00 Room Air 01/06/20 20:15 99 Nasal Cannula 2.0 28 01/06/20 20:00 98.2 101 18 123/60 (81) 92 101 01/06/20 20:00 101 20 92 Height (Feet): 5 Height (Inches): 1.00 Weight (Pounds): 152 General Appearance: no acute distress HEENT: normocephalic, atraumatic, anicteric, mucous membranes moist Respiratory/Chest: lungs clear, normal breath sounds, no respiratory distress, no accessory muscle use Cardiovascular: normal rate, regular rhythm, no gallop/murmur, no JVD Abdomen: normal bowel sounds, soft, non tender, no organomegaly, other - incision covered - drainage per surgery note Genitourinary: other - + zheng Extremities: no cyanosis Skin: no rash, rash - rash resolving 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 No focal airspace consolidation. No effusions. Normal heart size Impression: Acuity indeterminate mild interstitial disease. Correlate with clinical findings. No focal infiltrates CT abdomen and pelvis: Impression: Postsurgical changes, as described, including right lower quadrant simple ileostomy, prior total colectomy, and J-pouch. There is abundant anterior pelvic apparent defunctionalized small bowel which appears to be in continuity with and ileoanal J-pouch remnant. Most likely, this just represents old isolated small bowel, but the possibility of any of this representing either tumor or abscess is not completely excludable. Small parastomal hernia within the right lower quadrant ileostomy. This appears to be nonobstructive. Equivocal mild wall thickening of left upper quadrant jejunal loops. Enteritis is possible and correlation with clinical findings is recommended Age-indeterminate L2 vertebral body compression fracture deformity. Suspect old. Consider MRI if clinically relevant Prior cholecystectomy Inferior vena cava filter Findings discussed by phone Chest x-ray - 12/29/19 - FINDINGS: Lungs: Retrocardiac atelectasis versus infiltrate. No consolidation or interstitial edema. Pleural space: Trace left pleural effusion. Heart: Unremarkable. No cardiomegaly. Bones/joints: Unremarkable. Tubes, lines and devices: Endotracheal tube terminates 3 cm above the kyung. Left upper extremity PICC line terminates within the SVC. IMPRESSION: 1. Endotracheal tube terminates 3 cm above the kyung. 2. Left upper extremity PICC line terminates within the SVC. 3. Retrocardiac atelectasis versus infiltrate. 4. Trace left pleural effusion. Chest x-ray - 12/31/19 - Procedure: XRAY Chest 1v Procedure: XRAY Chest 1v Reason for study: Shortness of breath. Comparison films: 12/29/2019. FINDINGS: Endotracheal tube has been removed. Left PICC line remains in place. There is slight worsening of congestion and edema. Cardiac and mediastinal silhouette are within normal limits. CP angles are sharp. The bony thorax appear unremarkable. IMPRESSION: Slight worsening of congestion and edema. Chest x-ray - 01/02/20 - Procedure: XRAY Chest 1v Indication: Reason For Exam: SOB Technique: Single AP view of the chest. Comparison: Chest radiograph dated 12/31/2019 Findings: The cardiomediastinal silhouette is unchanged in appearance. No new airspace consolidation. Stable pulmonary vascular congestion. Demonstration of streaky retrocardiac airspace opacity. No pneumothorax or pleural effusion. Unchanged left PICC. IMPRESSION: No significant change from prior examination. CT abdomen and pelvis- 01/06/20 - Impression: Postsurgical changes, as described. Small amount of fluid and gas is seen along the incision no definite incisional. Incidental abscess demonstrated. Slow traversal of contrast small bowel but no definite evidence of small bowel obstruction Interim Zheng catheter placement Other findings as noted, including stable old healed fracture deformity left pubic bone, inferior vena cava filter, prior cholecystectomy, L2 vertebral body compression fracture Microbiology Date/Time Source Procedure Growth Status 01/05/20 00:48 Stool Clostridium difficile Toxin Assay - Final Complete 01/03/20 16:00 Other Gram Stain - Final Complete 01/03/20 16:00 Wound Culture - Final Escherichia Coli Proteus Mirabilis Esbl Complete 01/01/20 16:00 Blood Blood Culture - Final NO GROWTH AFTER 5 DAYS Complete 12/29/19 14:00 Abdominal Fluid Gram Stain - Final Complete 12/29/19 14:00 Aerobic Culture - Final Escherichia Coli Complete 12/29/19 14:00 Abdominal Fluid Anaerobic Culture - Final NO ANAEROBES ISOLATED Complete 12/27/19 11:13 Nasopharynx SARS-CoV-2 RdRp Gene Assay - Final Complete 12/22/19 19:30 Urine,Clean Catch Urine Culture - Final Morganella Morg Spp Morganii Complete Microbiology Date/Time Source Procedure Growth Status 01/05/20 00:48 Stool Clostridium difficile Toxin Assay - Final Complete Laboratory Tests Test 01/06/20 17:58 01/07/20 00:11 01/07/20 05:10 01/07/20 05:39 POC Whole Blood Glucose Pending 111 MG/DL (74-106) H 107 MG/DL (74-106) H White Blood Count 10.4 K/UL (4.8-10.8) Red Blood Count 2.87 M/UL (4.20-5.40) L Hemoglobin 8.8 G/DL (12.0-16.0) L Hematocrit 26.0 % (37.0-47.0) L Mean Corpuscular Volume 90 FL (80-99) Mean Corpuscular Hemoglobin 30.7 PG (27.0-31.0) Mean Corpuscular Hemoglobin Concent 33.9 G/DL (32.0-36.0) Red Cell Distribution Width 15.3 % (11.6-14.8) H Platelet Count 385 K/UL (150-450) Mean Platelet Volume 7.2 FL (6.5-10.1) Neutrophils (%) (Auto) 68.6 % (45.0-75.0) Lymphocytes (%) (Auto) 11.7 % (20.0-45.0) L Monocytes (%) (Auto) 10.3 % (1.0-10.0) H Eosinophils (%) (Auto) 8.5 % (0.0-3.0) H Basophils (%) (Auto) 1.0 % (0.0-2.0) Sodium Level 131 MMOL/L (136-145) L Potassium Level 3.6 MMOL/L (3.5-5.1) Chloride Level 98 MMOL/L (98-107) Carbon Dioxide Level 29 MMOL/L (21-32) Anion Gap 4 mmol/L (5-15) L Blood Urea Nitrogen 28 mg/dL (7-18) H Creatinine 1.0 MG/DL (0.55-1.30) Estimat Glomerular Filtration Rate 56.5 mL/min (>60) Glucose Level 110 MG/DL (74-106) H Calcium Level 7.7 MG/DL (8.5-10.1) L Phosphorus Level 3.1 MG/DL (2.5-4.9) Magnesium Level 1.6 MG/DL (1.8-2.4) L Total Bilirubin 0.3 MG/DL (0.2-1.0) Aspartate Amino Transf (AST/SGOT) 21 U/L (15-37) Alanine Aminotransferase (ALT/SGPT) 28 U/L (12-78) Alkaline Phosphatase 131 U/L (46-116) H Total Protein 4.3 G/DL (6.4-8.2) L Albumin 1.4 G/DL (3.4-5.0) L Globulin 2.9 g/dL Albumin/Globulin Ratio 0.5 (1.0-2.7) L Test 01/07/20 11:42 POC Whole Blood Glucose Pending Current Medications Medications (Trade) Dose Ordered Sig/Margarette Route PRN Reason Start Time Stop Time Status Last Admin Dose Admin Acetaminophen/ Butalbital/ Caffeine (Fioricet) 1 tab Q6H PRN ORAL headache 12/29/19 20:30 01/18/20 20:29 12/30/19 09:04 Al Hydroxide/Mg Hydroxide (Mylanta II) 30 ml Q6H PRN ORAL GAS/DYSPEPSIA 01/05/20 08:45 02/04/20 08:44 Amikacin Protocol (Amikacin pharmacy to dose) 1 ea DAILY PRN MISC Per rx protocol 12/29/19 20:30 01/28/20 20:29 Amikacin Sulfate 750 mg/Sodium Chloride 113 ml @ 113 mls/hr Q36H IV 01/04/20 17:00 01/10/20 04:59 01/06/20 06:53 Barium Sulfate (Readi-Cat 2) 450 ml NOW PRN ORAL Radiology Procedure 01/06/20 08:30 01/08/20 08:29 Chlorhexidine Gluconate (Patti-Hex 2%) 1 applic DAILY@1999 TOPIC 12/29/19 20:30 03/28/20 20:29 01/06/20 20:05 Clotrimazole (Lotrimin) 1 applic BID TOPIC 12/30/19 09:00 03/20/20 10:29 01/07/20 09:22 Dextrose 1,000 ml @ 0 mls/hr Q24H PRN IV PN interrupted or unavailable 12/29/19 20:30 01/28/20 20:29 Dextrose (Dextrose 50%) 25 ml Q30M PRN IV Hypoglycemia 12/29/19 20:30 03/17/20 19:59 Dextrose (Dextrose 50%) 50 ml Q30M PRN IV Hypoglycemia 12/29/19 20:30 03/17/20 19:59 Diphenhydramine HCl (Benadryl) 25 mg Q4H PRN IVP Itching 12/30/19 21:50 01/29/20 21:49 01/06/20 16:18 Diphenhydramine HCl (Benadryl) 25 mg Q6H PRN ORAL Itching 12/29/19 20:30 01/19/20 20:29 01/07/20 11:39 Fat Emulsion Intravenous 240 ml/Amino Acids/ Electrolytes/ Dextrose 1,920 ml @ 80 mls/hr Q24H IV 12/30/19 20:00 01/27/20 19:59 01/06/20 20:06 Hydromorphone HCl 30 ml @ 0 mls/hr Q24H PRN IV For Pain 01/06/20 09:00 01/08/20 08:59 01/06/20 18:06 Hydromorphone HCl (Dilaudid) 1 mg Q3H PRN SUBQ Severe Breakthru Pain (>7) 01/04/20 12:00 01/11/20 11:59 01/06/20 19:05 Hydroxyzine HCl (Atarax) 50 mg Q6H PRN ORAL Itching 01/02/20 19:15 01/28/20 20:29 01/06/20 18:02 Insulin Aspart (NovoLOG) Q6HR SUBQ 12/30/19 00:00 03/18/20 00:00 Iohexol (OMNIPAQUE-300 100ml) 100 ml NOW PRN INJ Radiology Procedure 01/06/20 08:30 01/08/20 08:29 Lansoprazole (Prevacid) 30 mg Q12HR ORAL 01/05/20 21:00 02/04/20 20:59 01/07/20 09:22 Metronidazole 100 ml @ 100 mls/hr Q8HR IVPB 01/06/20 22:00 01/12/20 21:59 01/07/20 13:21 Micafungin Sodium 100 mg/Sodium Chloride 110 ml @ 110 mls/hr Q24H IVPB 01/05/20 16:00 01/12/20 15:59 01/07/20 16:25 Miscellaneous Medication (SPANISH TEACHER Rate Change) 1 ea DAILY PRN MISC rate change 01/06/20 08:00 01/08/20 07:59 Miscellaneous Medication (SPANISH TEACHER shift volume) 1 ea Q12HR@0700,1900 MISC 01/06/20 19:00 01/08/20 18:59 01/07/20 07:17 Naloxone HCl (Narcan) 0.1 mg Q1M PRN IVP RR<10/min OR SBP<90 mmHg 01/01/20 09:30 03/31/20 09:29 Ondansetron HCl (Zofran) 4 mg Q4H PRN IVP Nausea & Vomiting 12/30/19 21:40 01/29/20 21:39 01/07/20 13:31 Phytonadione (Vitamin K) 10 mg ONCE A WEEK SUBQ 01/01/20 09:00 03/24/20 08:59 01/01/20 08:24 Pramipexole (Mirapex) 1 mg TWICE A DAY ORAL 12/30/19 09:00 01/16/20 17:59 01/07/20 09:22 Prochlorperazine (Compazine) 10 mg Q6H PRN IV Nausea & Vomiting 01/05/20 08:45 02/04/20 08:44 01/07/20 16:27 Quetiapine Fumarate (SEROqueL) 200 mg BEDTIME ORAL 12/29/19 21:00 01/31/20 20:59 01/06/20 20:05 Kevan Burgess MD Jan 07, 2020 17:47
[2020-01-07] MEDS: Amikacin 750 MG in NS 110 ML IV SCH (17:48)
--- NOTE | 2020-01-07 18:00 | NUR ---
NURSE NOTES: Dressing changed. ileo: 350cc brown output. UO: 6650cc bernard urine output. Lasix given as ordered, mag replaced. Patient got up with PT.
--- NOTE | 2020-01-07 19:40 | NUR ---
NURSE NOTES: Patient received in bed, aaox4 c/o pain 09/23, educated in use of DRIVER WHEELCHAIR,verbalized understanding. On DRIVER WHEELCHAIR dilaudid, RN will change syringe and tubing. PICC on left upper arm intact and patent, dressing c/d/i. Dressing on abdment C/D/I. AMIE drain bulb compressed and secured. Ileo bag in place and intact. Call light and DRIVER WHEELCHAIR button within reach. Will continue with plan of care.
--- NOTE | 2020-01-07 19:52 | NUR ---
NURSE HAND-OFF: Important Events on Shift:pain management, I&O, antibiotics, magnesium replacement, nausea management, itching management Patient Status: stable Diet: full liquid Pending Orders: n/a Pending Results/Labs:n/a Pending MD notification:n/a Latest Vital Signs: Temperature 99.1 , Pulse 94 , B/P 118 /72 , Respiratory Rate 18 , O2 SAT 100 , Room Air, O2 Flow Rate 2.0 . Vital Sign Comment: n/a Latest Jimenez Fall Score: 60 Fall Risk: High Risk Safety Measures: Call light Within Reach, Bed Alarm Zone 1, Side Rails Side Rails x2, Bed position Low and Locked. Fall Precautions: Yellow Socks Patient Fall Education Report given to Glen KAYE.
[2020-01-07 20:00] VITALS: BP 108/59
[2020-01-07] MEDS: PCA HYDROmorphone 1mg/ml 30 ML IV PRN (20:10)
[2020-01-07] MEDS: Dyna-Hex 2% Top Sol 2oz TOPIC SCH (20:10)
[2020-01-07] MEDS: QUEtiapine 200mg tab ORAL SCH (20:10)
[2020-01-07] MEDS: Fat Emulsion Iv 20% 240 ML in Tpn 1,680 ML IV SCH (20:15)
--- NOTE | 2020-01-07 20:30 | NUR ---
NURSE NOTES: ROVING HAULER syringe changed. Abdominal dressing changed per orders, noted with small serous drainage. Juliana intact.
[2020-01-08 04:00] VITALS: BP 104/63
[2020-01-08] MEDS: NovoLOG Insulin Flexpen SUBQ SCH ×3 (05:38→18:00)
[2020-01-08 06:37] LABS: BASOPHILS % (AUTO) 1.4 % (0.0-2.0); EOSINOPHILS % (AUTO) 11.1 % (0.0-3.0); HEMATOCRIT 28.5 % (37.0-47.0); HEMOGLOBIN 9.5 G/DL (12.0-16.0); LYMPHOCYTES % (AUTO) 11.4 % (20.0-45.0); MEAN CORPUSCULAR VOLUME 90 FL (80-99); MONOCYTES % (AUTO) 10.5 % (1.0-10.0); NEUTROPHILS % (AUTO) 65.6 % (45.0-75.0); PLATELET COUNT 429 K/UL (150-450); RED BLOOD COUNT 3.16 M/UL (4.20-5.40); RED CELL DISTRIBUTION WIDTH 14.7 % (11.6-14.8); WHITE BLOOD COUNT 9.2 K/UL (4.8-10.8)
--- NOTE | 2020-01-08 06:51 | NUR ---
NURSE NOTES: Offered to change dressing on abdomen, patient wants to continue to sleep.
[2020-01-08] MEDS: HYDROmorphone 1mg/ml Carpuject SUBQ PRN (07:04)
--- NOTE | 2020-01-08 07:10 | NUR ---
NURSE NOTES: Dressing soiled on abdomen with moderate amount of serosanguinous drainage. Dressing changed per order.
[2020-01-08 07:16] LABS: ALBUMIN 1.5 G/DL (3.4-5.0); ALBUMIN/GLOBULIN RATIO 0.5 (1.0-2.7); BILIRUBIN,TOTAL 0.2 MG/DL (0.2-1.0); PHOSPHORUS 3.7 MG/DL (2.5-4.9); POTASSIUM 3.3 MMOL/L (3.5-5.1)
[2020-01-08] MEDS: PCA shift volume MISC SCH (07:19)
--- NOTE | 2020-01-08 07:29 | NUR ---
NURSE HAND-OFF: Important Events on Shift:[dressing changed x2, 1x breakthrough pain meds given] Patient Status: [stable] Diet: [Full liquid] Pending Orders: [] Pending Results/Labs:[see chart] Pending MD notification:[] Latest Vital Signs: Temperature 98.4 , Pulse 85 , B/P 104 /63 , Respiratory Rate 16 , O2 SAT 94 , Room Air, O2 Flow Rate 2.0 . Vital Sign Comment: [stable] Latest Jimenez Fall Score: 60 Fall Risk: High Risk Safety Measures: Call light Within Reach, Bed Alarm Zone 1, Side Rails Side Rails x2, Bed position Low and Locked. Fall Precautions: Yellow Socks Patient Fall Education Report given to [Misa KAYE].
[2020-01-08 08:00] VITALS: BP 113/64
[2020-01-08] MEDS ORDERED: Rate Change PCA 1 Each MISC PRN (08:00)
--- NOTE | 2020-01-08 08:00 | NUR ---
NURSE NOTES: Patient awake and alert and oriented,respirations unlabored.TPN infusing as ordered.TEST EVALUATOR As ordered.Caban catheter is in place and draining clear light color urine.J/P drain with a scant amount of serous sanguineous drainage note.Abdominal dressing in tact.Noted Lynd illeostomy bagin place with liquid brown stool noted. Call light within reach.
[2020-01-08 08:02] VITALS: BP 113/64
[2020-01-08] MEDS ORDERED: PCA HYDROmorphone 1mg/ml 30 ML IV PRN (08:15)
[2020-01-08] MEDS: DiphenhydrAMINE 50mg/ml Inj IVP PRN ×2 (08:25→20:59)
--- NOTE | 2020-01-08 08:48 | NUR ---
RD ASSESSMENT & RECOMMENDATIONS SEE CARE ACTIVITY FOR COMPLETE ASSESSMENT DAILY ESTIMATED NEEDS: Needs based on Surgery/ 59kg 25-30 kcals/kg 8460-0246 total kcals 1-2 g protein/kg 59-118 g total protein 25-35 mL/kg 9043-9058 total fluid mLs NUTRITION DIAGNOSIS: Altered GI function R/T h/o UC, total colectomy, admitted w/ failed ileoanal J pouch with abdominal pain and J pouch bleeding as evidenced by s/p resection defunctionalized small bowel and ileoanal J pouch, revision of ileostomy, diet advanced to full liquid, cont on TPN. CURRENT DIET: Now Full Liquid PO DIET RECOMMENDATIONS: Full liquid as per MD PARENTERAL NUTRITION RECOMMENDATIONS: D/AA Rate: 70 IL Rate: 10 Total Rate: 80 Volume: 1920 % Dextrose: 16 % AA: 5.0 Energy (kcals/kg): 1730 Protein (g/kg protein): 84 Nonprotein KCALS: 1394 GIR (mg CHO/kg/min): 3.17 % Fat KCALS: 27.7 NPC: N Ratio: 103.7 TPN Comment: - D16% AA 5.0% @ 70ml/hr + IL 20% @ 10ml/hr -> all 3:1, total of 80ml/hr - Maintain per MD - TPN @ goal provides 100% est kcal/prot needs 29kcal/1.42g prot per kg ADDITIONAL RECOMMENDATIONS: * Calibrated bedscale wt or standing wt as able for accurate CBW * Monitor lytes, replete as needed * Monitor LFTs, BGs closely, need for TPN formulary change -> Low K (3.3) .
--- NOTE | 2020-01-08 09:41 | General Progress Note ---
Progress Note Progress Note AVSS Tolerating small amount of full liquid diet. Abdomen soft, decreased incision drainage on IV antibiotics per ID Ileostomy stable Flank and thigh edema improving. 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 Vaz to see patient re J pouch endoscopy with sedation, possible cauterization of bleeding points - not before Thursday 01/11 as need more time for anasarca to resolve Gio Mckeon MD Jan 08, 2020 09:40
--- NOTE | 2020-01-08 10:47 | Pulmonology Progress Note ---
Subjective ROS Limited/Unobtainable: No Interval Events: None new Constitutional: Denies: fever HEENT: Repors: no symptoms Respiratory: Reports: no symptoms Cardiovascular: Reports: no symptoms Gastrointestinal/Abdominal: Denies: nausea, vomiting Genitourinary: Reports: no symptoms Psychiatric: Reports: other - NA Skin: Denies: rash Musculoskeletal: Denies: pain Allergies: Coded Allergies: AMPICILLIN (Verified Allergy, Unknown, 12/17/19) TETRACYCLINE (Verified Allergy, Unknown, 12/17/19) Objective Last 24 Hour Vital Signs Date Time Temp Pulse Resp B/P (MAP) Pulse Ox O2 Delivery O2 Flow Rate FiO2 01/08/20 08:02 96 20 94 01/08/20 08:00 98.9 96 20 113/64 (80) 94 01/08/20 07:26 100 Nasal Cannula 2.0 28 01/08/20 04:00 98.4 85 16 104/63 (77) 94 01/08/20 04:00 85 16 94 01/07/20 21:00 Room Air 01/07/20 20:00 98.6 98 17 108/59 (75) 94 01/07/20 20:00 98 17 94 01/07/20 19:07 100 Nasal Cannula 2.0 28 01/07/20 16:00 99.1 94 18 118/72 (87) 95 01/07/20 12:00 98.4 101 18 116/58 (77) 96 Intake and Output 01/07/20 01/08/20 19:00 07:00 Intake Total 1120 ml Output Total 7005 ml 2363 ml Balance -7005 ml -1243 ml Intake Oral 120 ml IV Total 1000 ml Output Urine Total 6650 ml 2300 ml Drainage Total 5 ml 3 ml Other 350 ml 60 ml General Appearance: no acute distress Respiratory: chest wall non-tender Cardiovascular: normal peripheral pulses Abdomen: soft, non tender Laboratory Tests 01/07/20 11:42: POC Whole Blood Glucose [Pending] 01/07/20 17:53: POC Whole Blood Glucose [Pending] 01/07/20 23:54: POC Whole Blood Glucose 126H 01/08/20 05:05: White Blood Count 9.2, Red Blood Count 3.16L, Hemoglobin 9.5L, Hematocrit 28.5L, Mean Corpuscular Volume 90, Mean Corpuscular Hemoglobin 30.2, Mean Corpuscular Hemoglobin Concent 33.5, Red Cell Distribution Width 14.7, Platelet Count 429, Mean Platelet Volume 6.5, Neutrophils (%) (Auto) 65.6, Lymphocytes (%) (Auto) 11 .4L, Monocytes (%) (Auto) 10.5H, Eosinophils (%) (Auto) 11.1H, Basophils (%) (Auto) 1.4, Sodium Level 131L, Potassium Level 3.3L, Chloride Level 96L, Carbon Dioxide Level 31, Anion Gap 4L, Blood Urea Nitrogen 27H, Creatinine 1.0, Estimat Glomerular Filtration Rate 56.5, Glucose Level 119H, Calcium Level 8.0L, Ph osphorus Level 3.7, Magnesium Level 2.1, Total Bilirubin 0.2, Aspartate Amino Transf (AST/SGOT) 22, Alanine Aminotransferase (ALT/SGPT) 26, Alkaline Phosphatase 139H, Total Protein 4.7L, Albumin 1.5L, Globulin 3.2, Albumin/Globulin Ratio 0.5L 01/08/20 05:37: POC Whole Blood Glucose 117H Current Medications Medications (Trade) Dose Ordered Sig/Margarette Route PRN Reason Start Time Stop Time Status Last Admin Dose Admin Acetaminophen/ Butalbital/ Caffeine (Fioricet) 1 tab Q6H PRN ORAL headache 12/29/19 20:30 01/18/20 20:29 12/30/19 09:04 Al Hydroxide/Mg Hydroxide (Mylanta II) 30 ml Q6H PRN ORAL GAS/DYSPEPSIA 01/05/20 08:45 02/04/20 08:44 Amikacin Protocol (Amikacin pharmacy to dose) 1 ea DAILY PRN MISC Per rx protocol 12/29/19 20:30 01/28/20 20:29 Amikacin Sulfate 750 mg/Sodium Chloride 113 ml @ 113 mls/hr Q36H IV 01/04/20 17:00 01/10/20 04:59 01/07/20 17:48 Chlorhexidine Gluconate (Patti-Hex 2%) 1 applic DAILY@2000 TOPIC 12/29/19 20:30 03/28/20 20:29 01/07/20 20:10 Clotrimazole (Lotrimin) 1 applic BID TOPIC 12/30/19 09:00 03/20/20 10:29 01/07/20 17:53 Dextrose 1,000 ml @ 0 mls/hr Q24H PRN IV PN interrupted or unavailable 12/29/19 20:30 01/28/20 20:29 Dextrose (Dextrose 50%) 25 ml Q30M PRN IV Hypoglycemia 12/29/19 20:30 03/17/20 19:59 Dextrose (Dextrose 50%) 50 ml Q30M PRN IV Hypoglycemia 12/29/19 20:30 03/17/20 19:59 Diphenhydramine HCl (Benadryl) 25 mg Q4H PRN IVP Itching 12/30/19 21:50 01/29/20 21:49 01/08/20 08:25 Diphenhydramine HCl (Benadryl) 25 mg Q6H PRN ORAL Itching 12/29/19 20:30 01/19/20 20:29 01/07/20 20:17 Fat Emulsion Intravenous 240 ml/Amino Acids/ Electrolytes/ Dextrose 1,920 ml @ 80 mls/hr Q24H IV 12/30/19 20:00 01/27/20 19:59 01/07/20 20:15 Hydromorphone HCl (Dilaudid) 1 mg Q3H PRN SUBQ Severe Breakthru Pain (>7) 01/04/20 12:00 01/11/20 11:59 01/08/20 07:04 Hydroxyzine HCl (Atarax) 50 mg Q6H PRN ORAL Itching 01/02/20 19:15 01/28/20 20:29 01/06/20 18:02 Insulin Aspart (NovoLOG) Q6HR SUBQ 12/30/19 00:00 03/18/20 00:00 Lansoprazole (Prevacid) 30 mg Q12HR ORAL 01/05/20 21:00 02/04/20 20:59 01/07/20 20:10 Metronidazole 100 ml @ 100 mls/hr Q8HR IVPB 01/06/20 22:00 01/12/20 21:59 01/08/20 05:28 Micafungin Sodium 100 mg/Sodium Chloride 110 ml @ 110 mls/hr Q24H IVPB 01/05/20 16:00 01/12/20 15:59 01/07/20 16:25 Naloxone HCl (Narcan) 0.1 mg Q1M PRN IVP RR<10/min OR SBP<90 mmHg 01/01/20 09:30 03/31/20 09:29 Ondansetron HCl (Zofran) 4 mg Q4H PRN IVP Nausea & Vomiting 12/30/19 21:40 01/29/20 21:39 01/08/20 09:13 Oxycodone/ Acetaminophen (Percocet 5-325) 1 tab Q4H PRN ORAL Moderate Pain (Pain Scale 4-6) 01/08/20 09:45 01/15/20 09:44 Phytonadione (Vitamin K) 10 mg ONCE A WEEK SUBQ 01/01/20 09:00 03/24/20 08:59 01/01/20 08:24 Potassium Chloride 100 ml @ 100 mls/hr Q1HR IVPB 01/08/20 10:00 01/08/20 13:59 Pramipexole (Mirapex) 1 mg TWICE A DAY ORAL 12/30/19 09:00 01/16/20 17:59 01/07/20 17:49 Prochlorperazine (Compazine) 10 mg Q6H PRN IV Nausea & Vomiting 01/05/20 08:45 02/04/20 08:44 01/07/20 16:27 Quetiapine Fumarate (SEROqueL) 200 mg BEDTIME ORAL 12/29/19 21:00 01/31/20 20:59 01/07/20 20:10 Assessment/Plan Assessment/Plan IMPRESSION: 1. Status post laparotomy. 2. Ulcerative colitis. 3. Bilateral pleural effuions and atelectasis. DISCUSSION: Postoperative care per Dr. Mckeon Continue oxygen and pulmonary hygiene. I will follow carefully. Pain control. DVT prophylaxis. GI prophylaxis. CT abd shows bilateral pleural effusions with compressive atelectasis Advised to intensify pulmonary hygiene with IS Will follow Currently asymptomatic from pulmonary perspective On low flow O2 Onesimo Perales Omar Syed MD Jan 08, 2020 10:47
[2020-01-08] MEDS: Pramipexole 0.5mg tab ORAL SCH ×2 (10:52→18:48)
[2020-01-08] MEDS: Phytonadione 10 mg/mL 1ml amp SUBQ SCH (10:52)
[2020-01-08 12:00] VITALS: BP 117/68
--- NOTE | 2020-01-08 13:01 | Infectious Diseases Prog Note ---
Assessment/Plan Assessment/Plan ASSESSMENT AND PLAN: 1. e.coli uti, morganella uti, left leg cellulitis, ? reaction/atypical drug rash to aztreonam, allergies - ampicillin, tetracycline s/p surgery on 12/29/19 - significant leukocytosis, ? sepsis vs post-surgical leukocytosis fungemia risk, TPN atelectasis vs pna (aspiration/hcap) intra-abdominal fluid culture, ? abscess - e.coli, s-amikacin elevated Ck noted - ? daptomycin - held - ck level less wound drainage per surgery note - ? wound infection - wound culture with e.coli and esbl proteus both sensitive to amikacin CT noted - incidental abscess per report - amikacin, flagyl, micafungin - day # 9 post-op, discontinue vancomycin since no mrsa growing from culture - monitor labs, cr, cbc - leukocytosis resolved - management per Dr. Mckeon - d/w RN and patient 2. skin care per protocol - ? fungal component, on clotrimazole cream 3. 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 4. History of Narcisa ileostomy. 5. History of ulcerative colitis. 6. History of multiple abdominal surgeries. 7. History of cholecystectomy. 8. History of peristomal hernia and mesh. 9. History of colectomy. 10. Continue treatment per Dr. Mckeon and consultants. 11. Allergies to ampicillin, tetracycline. She gets hives with ampicillin. 12. Social history is negative. 13. Family history is noncontributory. 14. MAR is noted. 15. Case was discussed with RN. 16. Case was discussed with Dr. Mckeon. 17. Case was discussed with the patient. Subjective Constitutional: Denies: fever HEENT: Denies: congestion Respiratory: Denies: shortness of breath Cardiovascular: Denies: chest pain Gastrointestinal/Abdominal: Denies: nausea, vomiting Skin: Reports: rash - rash stable Allergies: Coded Allergies: AMPICILLIN (Verified Allergy, Unknown, 12/17/19) TETRACYCLINE (Verified Allergy, Unknown, 12/17/19) Objective Last 24 Hour Vital Signs Date Time Temp Pulse Resp B/P (MAP) Pulse Ox O2 Delivery O2 Flow Rate FiO2 01/08/20 12:00 98.3 88 18 117/68 (84) 97 01/08/20 08:02 96 20 94 01/08/20 08:00 98.9 96 20 113/64 (80) 94 01/08/20 07:26 100 Nasal Cannula 2.0 28 01/08/20 04:00 98.4 85 16 104/63 (77) 94 01/08/20 04:00 85 16 94 01/07/20 21:00 Room Air 01/07/20 20:00 98.6 98 17 108/59 (75) 94 01/07/20 20:00 98 17 94 01/07/20 19:07 100 Nasal Cannula 2.0 28 01/07/20 16:00 99.1 94 18 118/72 (87) 95 Height (Feet): 5 Height (Inches): 1.00 Weight (Pounds): 152 General Appearance: no acute distress HEENT: normocephalic, atraumatic, anicteric Respiratory/Chest: lungs clear, normal breath sounds, no respiratory distress, no accessory muscle use Cardiovascular: normal rate, regular rhythm, no gallop/murmur Abdomen: normal bowel sounds, soft, non tender, no organomegaly, other - no sig incision drainag noted Extremities: other - edema less Skin: rash - stable Chest x-ray - Procedure: XRAY Chest 1v Indication: Cough Technique: One view of the chest Comparison: none Findings: There is diffuse mild bilateral interstitial disease and central bronchial wall thickening. No focal airspace consolidation. No effusions. Normal heart size Impression: Acuity indeterminate mild interstitial disease. Correlate with clinical findings. No focal infiltrates CT abdomen and pelvis: Impression: Postsurgical changes, as described, including right lower quadrant simple ileostomy, prior total colectomy, and J-pouch. There is abundant anterior pelvic apparent defunctionalized small bowel which appears to be in continuity with and ileoanal J-pouch remnant. Most likely, this just represents old isolated small bowel, but the possibility of any of this representing either tumor or abscess is not completely excludable. Small parastomal hernia within the right lower quadrant ileostomy. This appears to be nonobstructive. Equivocal mild wall thickening of left upper quadrant jejunal loops. Enteritis is possible and correlation with clinical findings is recommended Age-indeterminate L2 vertebral body compression fracture deformity. Suspect old. Consider MRI if clinically relevant Prior cholecystectomy Inferior vena cava filter Findings discussed by phone Chest x-ray - 12/29/19 - FINDINGS: Lungs: Retrocardiac atelectasis versus infiltrate. No consolidation or interstitial edema. Pleural space: Trace left pleural effusion. Heart: Unremarkable. No cardiomegaly. Bones/joints: Unremarkable. Tubes, lines and devices: Endotracheal tube terminates 3 cm above the kyung. Left upper extremity PICC line terminates within the SVC. IMPRESSION: 1. Endotracheal tube terminates 3 cm above the kyung. 2. Left upper extremity PICC line terminates within the SVC. 3. Retrocardiac atelectasis versus infiltrate. 4. Trace left pleural effusion. Chest x-ray - 12/31/19 - Procedure: XRAY Chest 1v Procedure: XRAY Chest 1v Reason for study: Shortness of breath. Comparison films: 12/29/2019. FINDINGS: Endotracheal tube has been removed. Left PICC line remains in place. There is slight worsening of congestion and edema. Cardiac and mediastinal silhouette are within normal limits. CP angles are sharp. The bony thorax appear unremarkable. IMPRESSION: Slight worsening of congestion and edema. Chest x-ray - 01/02/20 - Procedure: XRAY Chest 1v Indication: Reason For Exam: SOB Technique: Single AP view of the chest. Comparison: Chest radiograph dated 12/31/2019 Findings: The cardiomediastinal silhouette is unchanged in appearance. No new airspace consolidation. Stable pulmonary vascular congestion. Demonstration of streaky retrocardiac airspace opacity. No pneumothorax or pleural effusion. Unchanged left PICC. IMPRESSION: No significant change from prior examination. CT abdomen and pelvis- 01/06/20 - Impression: Postsurgical changes, as described. Small amount of fluid and gas is seen along the incision no definite incisional. Incidental abscess demonstrated. Slow traversal of contrast small bowel but no definite evidence of small bowel obstruction Interim Caban catheter placement Other findings as noted, including stable old healed fracture deformity left pubic bone, inferior vena cava filter, prior cholecystectomy, L2 vertebral body compression fracture Laboratory Tests Test 01/07/20 17:53 01/07/20 23:54 01/08/20 05:05 01/08/20 05:37 POC Whole Blood Glucose Pending 126 MG/DL (74-106) H 117 MG/DL (74-106) H White Blood Count 9.2 K/UL (4.8-10.8) Red Blood Count 3.16 M/UL (4.20-5.40) L Hemoglobin 9.5 G/DL (12.0-16.0) L Hematocrit 28.5 % (37.0-47.0) L Mean Corpuscular Volume 90 FL (80-99) Mean Corpuscular Hemoglobin 30.2 PG (27.0-31.0) Mean Corpuscular Hemoglobin Concent 33.5 G/DL (32.0-36.0) Red Cell Distribution Width 14.7 % (11.6-14.8) Platelet Count 429 K/UL (150-450) Mean Platelet Volume 6.5 FL (6.5-10.1) Neutrophils (%) (Auto) 65.6 % (45.0-75.0) Lymphocytes (%) (Auto) 11.4 % (20.0-45.0) L Monocytes (%) (Auto) 10.5 % (1.0-10.0) H Eosinophils (%) (Auto) 11.1 % (0.0-3.0) H Basophils (%) (Auto) 1.4 % (0.0-2.0) Sodium Level 131 MMOL/L (136-145) L Potassium Level 3.3 MMOL/L (3.5-5.1) L Chloride Level 96 MMOL/L (98-107) L Carbon Dioxide Level 31 MMOL/L (21-32) Anion Gap 4 mmol/L (5-15) L Blood Urea Nitrogen 27 mg/dL (7-18) H Creatinine 1.0 MG/DL (0.55-1.30) Estimat Glomerular Filtration Rate 56.5 mL/min (>60) Glucose Level 119 MG/DL (74-106) H Calcium Level 8.0 MG/DL (8.5-10.1) L Phosphorus Level 3.7 MG/DL (2.5-4.9) Magnesium Level 2.1 MG/DL (1.8-2.4) Total Bilirubin 0.2 MG/DL (0.2-1.0) Aspartate Amino Transf (AST/SGOT) 22 U/L (15-37) Alanine Aminotransferase (ALT/SGPT) 26 U/L (12-78) Alkaline Phosphatase 139 U/L (46-116) H Total Protein 4.7 G/DL (6.4-8.2) L Albumin 1.5 G/DL (3.4-5.0) L Globulin 3.2 g/dL Albumin/Globulin Ratio 0.5 (1.0-2.7) L Test 01/08/20 12:39 POC Whole Blood Glucose 128 MG/DL (74-106) H Current Medications Medications (Trade) Dose Ordered Sig/Margarette Route PRN Reason Start Time Stop Time Status Last Admin Dose Admin Acetaminophen/ Butalbital/ Caffeine (Fioricet) 1 tab Q6H PRN ORAL headache 12/29/19 20:30 01/18/20 20:29 12/30/19 09:04 Al Hydroxide/Mg Hydroxide (Mylanta II) 30 ml Q6H PRN ORAL GAS/DYSPEPSIA 01/05/20 08:45 02/04/20 08:44 Amikacin Protocol (Amikacin pharmacy to dose) 1 ea DAILY PRN MISC Per rx protocol 12/29/19 20:30 01/28/20 20:29 Amikacin Sulfate 750 mg/Sodium Chloride 113 ml @ 113 mls/hr Q36H IV 01/04/20 17:00 01/10/20 04:59 01/07/20 17:48 Chlorhexidine Gluconate (Patti-Hex 2%) 1 applic DAILY@1999 TOPIC 12/29/19 20:30 03/28/20 20:29 01/07/20 20:10 Clotrimazole (Lotrimin) 1 applic BID TOPIC 12/30/19 09:00 03/20/20 10:29 01/08/20 11:07 Dextrose 1,000 ml @ 0 mls/hr Q24H PRN IV PN interrupted or unavailable 12/29/19 20:30 01/28/20 20:29 Dextrose (Dextrose 50%) 25 ml Q30M PRN IV Hypoglycemia 12/29/19 20:30 03/17/20 19:59 Dextrose (Dextrose 50%) 50 ml Q30M PRN IV Hypoglycemia 12/29/19 20:30 03/17/20 19:59 Diphenhydramine HCl (Benadryl) 25 mg Q4H PRN IVP Itching 12/30/19 21:50 01/29/20 21:49 01/08/20 08:25 Diphenhydramine HCl (Benadryl) 25 mg Q6H PRN ORAL Itching 12/29/19 20:30 01/19/20 20:29 01/07/20 20:17 Fat Emulsion Intravenous 240 ml/Amino Acids/ Electrolytes/ Dextrose 1,920 ml @ 80 mls/hr Q24H IV 12/30/19 20:00 01/27/20 19:59 01/07/20 20:15 Hydromorphone HCl (Dilaudid) 1 mg Q3H PRN SUBQ Severe Breakthru Pain (>7) 01/04/20 12:00 01/11/20 11:59 01/08/20 07:04 Hydroxyzine HCl (Atarax) 50 mg Q6H PRN ORAL Itching 01/02/20 19:15 01/28/20 20:29 01/06/20 18:02 Insulin Aspart (NovoLOG) Q6HR SUBQ 12/30/19 00:00 03/18/20 00:00 Lansoprazole (Prevacid) 30 mg Q12HR ORAL 01/05/20 21:00 02/04/20 20:59 01/08/20 10:52 Metronidazole 100 ml @ 100 mls/hr Q8HR IVPB 01/06/20 22:00 01/12/20 21:59 01/08/20 05:28 Micafungin Sodium 100 mg/Sodium Chloride 110 ml @ 110 mls/hr Q24H IVPB 01/05/20 16:00 01/12/20 15:59 01/07/20 16:25 Naloxone HCl (Narcan) 0.1 mg Q1M PRN IVP RR<10/min OR SBP<90 mmHg 01/01/20 09:30 03/31/20 09:29 Ondansetron HCl (Zofran) 4 mg Q4H PRN IVP Nausea & Vomiting 12/30/19 21:40 01/29/20 21:39 01/08/20 09:13 Oxycodone/ Acetaminophen (Percocet 5-325) 1 tab Q4H PRN ORAL Moderate Pain (Pain Scale 4-6) 01/08/20 09:45 01/15/20 09:44 Phytonadione (Vitamin K) 10 mg ONCE A WEEK SUBQ 01/01/20 09:00 03/24/20 08:59 01/08/20 10:52 Potassium Chloride 100 ml @ 100 mls/hr Q1HR IVPB 01/08/20 10:00 01/08/20 13:59 01/08/20 12:31 Pramipexole (Mirapex) 1 mg TWICE A DAY ORAL 12/30/19 09:00 01/16/20 17:59 01/08/20 10:52 Prochlorperazine (Compazine) 10 mg Q6H PRN IV Nausea & Vomiting 01/05/20 08:45 02/04/20 08:44 01/07/20 16:27 Quetiapine Fumarate (SEROqueL) 200 mg BEDTIME ORAL 12/29/19 21:00 01/31/20 20:59 01/07/20 20:10 Kevan Burgess MD Jan 08, 2020 13:01
[2020-01-08] MEDS: oxyCODONE HCL/Acetaminophen 5/325mg ORAL PRN ×2 (14:52→20:01)
[2020-01-08 16:00] VITALS: BP 108/66
[2020-01-08] MEDS: Micafungin 100 MG in NS 110 ML IVPB SCH (17:30)
--- NOTE | 2020-01-08 18:14 | Consultation ---
DATE OF CONSULTATION: 01/08/2020 CONSULTING PHYSICIAN: Amando Vaz MD. REFERRING PHYSICIAN: Gio Mckeon MD. CHIEF COMPLAINT: Bleeding from the J-pouch. HISTORY OF PRESENT ILLNESS: This is a 59-year-old female with past medical history of ulcerative colitis, status post total colectomy in 1991 with having a J-pouch. The patient has basically failed J-pouch and was admitted in the beginning of the December here at [facility] under the care of Dr. Gio Mckeon to have a surgery, which has been done. Now, she is still having some bleeding at the ostomy and GI consult requested for possible pouchoscopy and cauterization. PAST MEDICAL HISTORY: 1. Ulcerative colitis. 2. History of bowel obstruction, had required multiple abdominal surgeries. 3. Cholecystectomy. 4. Parastomal hernia repair. 5. GERD. ALLERGIES: The patient is allergic to ampicillin and tetracycline. MEDICATIONS: Please see medication reconciliation list. SOCIAL HISTORY: The patient denies any tobacco, alcohol, or drug abuse. FAMILY HISTORY: No family history of GI malignancy. REVIEW OF SYSTEMS: A 10-point review of systems was performed and pertinent positives in HPI. PHYSICAL EXAMINATION: VITAL SIGNS: Most recent vital signs, temperature is 98.3, pulse 83, respirations 18, blood pressure 117/68. HEENT: Normocephalic and atraumatic. Sclerae, mildly pale. NECK: Supple. No evidence of obvious lymphadenopathy. CARDIOVASCULAR: Regular rate and rhythm. Plus S1 and S2. LUNGS: Clear to auscultation bilaterally. ABDOMEN: Post surgical with ileostomy bag in place. EXTREMITIES: The patient has evidence of no cyanosis and no clubbing. LABORATORY DATA: White count is 9.2, hemoglobin 9.5, hematocrit 28, platelet count 429,000. ASSESSMENT AND PLAN: This is a 59-year-old female with history of ulcerative colitis, status post multiple surgeries, colectomy, J-pouch placement, and Narcisa ileostomy, now is having bleeding at the pouch and there was a request to have pouchoscopy and cauterization possibly next week. I explained the procedure to the patient in detail. Risks and benefits of procedure was explained to her and she agreed to it, so we are going to schedule her some time next week. I want to thank Dr. Gio Mckeon for this kind referral. Amandoelpidio Vaz M.D. DR: ANGELA JOB#: [id number] CC:
--- NOTE | 2020-01-08 18:30 | NUR ---
NURSE NOTES Patient resting,abdominal dressing changed small amount of serous sanguineous drainage noted on old dressing.Patient has no appetite ,did not eat dinner.Caban catheter remains in place with clear light yellow urine noted in drainage bag.Call light within reach.
[2020-01-08] MEDS ORDERED: PCA shift volume MISC SCH (19:00)
--- NOTE | 2020-01-08 19:45 | NUR ---
NURSE HAND-OFF: Hamzah KAYE Important Events on Shift: potassium bolus today IVPB] Patient Status: [Stable.] Diet: [Full liquids] Pending Orders: [] Pending Results/Labs:[Labs in AM 01/08] Pending MD notification:[] Latest Vital Signs: Temperature 98.4 , Pulse 95 , B/P 108 /66 , Respiratory Rate 20 , O2 SAT 100 , Room Air, O2 Flow Rate 2.0 . Vital Sign Comment: [] Latest Jimenez Fall Score: 60 Fall Risk: High Risk Safety Measures: Call light Within Reach, Bed Alarm Zone 1, Side Rails Side Rails x2, Bed position Low and Locked. Fall Precautions: y Yellow Socks Y Patient Fall Education Report given to [].
--- NOTE | 2020-01-08 19:47 | NUR ---
NURSE NOTES: Received report from Misa KAYE.The patient is alert and oriented x4, is on Room air with Resp even and unlabored. She was complaining of some pain in the abdomen but does not seem to be in active distress at this time.She has a left Upper Arm PICC line that is patent and asymptomatic, running TPN @ 80ml/hr well tolerated. She was also noted with a Right lower quadrant ileostomy bag. Caban catheter was noted draining under gravity of pale yellowish urine.The bed in low and locked position and siderails up x2. call light within easy reach. will continue to monitor
[2020-01-08 20:00] VITALS: BP 98/54
[2020-01-08] MEDS: Fat Emulsion Iv 20% 240 ML in Tpn 1,680 ML IV SCH (20:11)
[2020-01-08] MEDS: Dyna-Hex 2% Top Sol 2oz TOPIC SCH (20:12)
[2020-01-08] MEDS: QUEtiapine 200mg tab ORAL SCH (20:12)
--- NOTE | 2020-01-08 22:25 | NUR ---
NURSE NOTES: The patient complained of not being able to fall asleep. Dr. Mckeon was called and he ordered Restoril 7.5 mg Po PRN at Bedtime.
[2020-01-08] MEDS: HydrOXYzine tab 25mg tab ORAL PRN (23:31)
[2020-01-09] VITALS: BP 121/67
[2020-01-09] MEDS: DiphenhydrAMINE 50mg/ml Inj IVP PRN (01:01)
[2020-01-09] MEDS: HYDROmorphone 1mg/ml Carpuject SUBQ PRN ×6 (01:18→22:05)
[2020-01-09 04:00] VITALS: BP 135/74
[2020-01-09] MEDS: NovoLOG Insulin Flexpen SUBQ SCH ×4 (06:00→18:00)
[2020-01-09] MEDS: Amikacin 750 MG in NS 110 ML IV SCH (06:17)
[2020-01-09 06:42] LABS: BASOPHILS % (AUTO) 0.8 % (0.0-2.0); HEMATOCRIT 29.2 % (37.0-47.0); HEMOGLOBIN 9.8 G/DL (12.0-16.0); LYMPHOCYTES % (AUTO) 13.2 % (20.0-45.0); MEAN CORPUSCULAR VOLUME 90 FL (80-99); MONOCYTES % (AUTO) 8.9 % (1.0-10.0); NEUTROPHILS % (AUTO) 68.1 % (45.0-75.0); PLATELET COUNT 478 K/UL (150-450); RED BLOOD COUNT 3.24 M/UL (4.20-5.40); WHITE BLOOD COUNT 10.5 K/UL (4.8-10.8)
--- NOTE | 2020-01-09 07:00 | Pulmonology Progress Note ---
Subjective ROS Limited/Unobtainable: No Interval Events: None new Constitutional: Denies: fever HEENT: Repors: no symptoms Respiratory: Reports: no symptoms Cardiovascular: Reports: no symptoms Gastrointestinal/Abdominal: Denies: nausea, vomiting Genitourinary: Reports: no symptoms Psychiatric: Reports: other - NA Skin: Reports: rash - rash stable Musculoskeletal: Denies: pain Allergies: Coded Allergies: AMPICILLIN (Verified Allergy, Unknown, 12/17/19) TETRACYCLINE (Verified Allergy, Unknown, 12/17/19) Objective Last 24 Hour Vital Signs Date Time Temp Pulse Resp B/P (MAP) Pulse Ox O2 Delivery O2 Flow Rate FiO2 01/09/20 04:00 98.6 92 20 135/74 (94) 92 01/09/20 00:00 98.0 91 20 121/67 (85) 93 01/08/20 21:00 Room Air 01/08/20 20:00 98.3 94 20 98/54 (69) 90 01/08/20 18:52 100 Nasal Cannula 2.0 28 01/08/20 16:00 98.4 95 20 108/66 (80) 95 01/08/20 12:00 98.3 88 18 117/68 (84) 97 01/08/20 12:00 88 18 97 01/08/20 08:02 96 20 94 01/08/20 08:00 98.9 96 20 113/64 (80) 94 01/08/20 07:26 100 Nasal Cannula 2.0 28 Intake and Output 01/08/20 01/09/20 19:00 07:00 Intake Total 1570 ml 380 ml Output Total 5700 ml 3220 ml Balance -4130 ml -2840 ml Intake Oral 480 ml 380 ml IV Total 1090 ml Output Urine Total 5500 ml 3200 ml Other 200 ml 20 ml General Appearance: no acute distress Respiratory: chest wall non-tender Cardiovascular: normal peripheral pulses Abdomen: soft, non tender Laboratory Tests 01/08/20 12:39: POC Whole Blood Glucose 128H 01/08/20 18:44: POC Whole Blood Glucose [Pending] 01/08/20 23:35: POC Whole Blood Glucose 134H 01/09/20 05:20: White Blood Count [Pending], Red Blood Count [Pending], Hemoglobin [Pending], Hematocrit [Pending], Mean Corpuscular Volume [Pending], Mean Corpuscular Hemoglobin [Pending], Mean Corpuscular Hemoglobin Concent [Pending], Red Cell Distribution Width [Pending], Platelet Count [Pending], Mean Platelet Volume [Pending], Neutrophils (%) (Auto) [Pending], Lymphocytes (%) (Auto) [Pending], Monocytes (%) (Auto) [Pending], Eosinophils (%) (Auto) [Pending], Basophils (%) (Auto) [Pending], Sodium Level [Pending], Potassium Level [Pending], Chloride Level [Pending], Carbon Dioxide Level [Pending], Blood Urea Nitrogen [Pending], Creatinine [Pending], Estimat Glomerular Filtration Rate [Pending], Glucose Level [Pending], Calcium Level [Pending], Phosphorus Level [Pending], Magnesium Level [Pending], Total Bilirubin [Pending], Aspartate Amino Transf (AST/SGOT) [Pending], Alanine Aminotransferase (ALT/SGPT) [Pending], Alkaline Phosphatase [Pending], Total Creatine Kinase [Pending], Total Protein [Pending], Albumin [Pending], Globulin [Pending] 01/09/20 06:30: POC Whole Blood Glucose 123H Current Medications Medications (Trade) Dose Ordered Sig/Margarette Route PRN Reason Start Time Stop Time Status Last Admin Dose Admin Acetaminophen/ Butalbital/ Caffeine (Fioricet) 1 tab Q6H PRN ORAL headache 12/29/19 20:30 01/18/20 20:29 12/30/19 09:04 Al Hydroxide/Mg Hydroxide (Mylanta II) 30 ml Q6H PRN ORAL GAS/DYSPEPSIA 01/05/20 08:45 02/04/20 08:44 Amikacin Protocol (Amikacin pharmacy to dose) 1 ea DAILY PRN MISC Per rx protocol 12/29/19 20:30 01/28/20 20:29 Amikacin Sulfate 750 mg/Sodium Chloride 113 ml @ 113 mls/hr Q36H IV 01/04/20 17:00 01/10/20 04:59 01/09/20 06:17 Chlorhexidine Gluconate (Patti-Hex 2%) 1 applic DAILY@2000 TOPIC 12/29/19 20:30 03/28/20 20:29 01/08/20 20:12 Clotrimazole (Lotrimin) 1 applic BID TOPIC 12/30/19 09:00 03/20/20 10:29 01/08/20 18:45 Dextrose 1,000 ml @ 0 mls/hr Q24H PRN IV PN interrupted or unavailable 12/29/19 20:30 01/28/20 20:29 Dextrose (Dextrose 50%) 25 ml Q30M PRN IV Hypoglycemia 12/29/19 20:30 03/17/20 19:59 Dextrose (Dextrose 50%) 50 ml Q30M PRN IV Hypoglycemia 12/29/19 20:30 03/17/20 19:59 Diphenhydramine HCl (Benadryl) 25 mg Q4H PRN IVP Itching 12/30/19 21:50 01/29/20 21:49 01/09/20 01:01 Diphenhydramine HCl (Benadryl) 25 mg Q6H PRN ORAL Itching 12/29/19 20:30 01/19/20 20:29 01/07/20 20:17 Fat Emulsion Intravenous 240 ml/Amino Acids/ Electrolytes/ Dextrose 1,920 ml @ 80 mls/hr Q24H IV 12/30/19 20:00 01/27/20 19:59 01/08/20 20:11 Hydromorphone HCl (Dilaudid) 1 mg Q3H PRN SUBQ Severe Breakthru Pain (>7) 01/04/20 12:00 01/11/20 11:59 01/09/20 06:18 Hydroxyzine HCl (Atarax) 50 mg Q6H PRN ORAL Itching 01/02/20 19:15 01/28/20 20:29 01/08/20 23:31 Insulin Aspart (NovoLOG) Q6HR SUBQ 12/30/19 00:00 03/18/20 00:00 Lansoprazole (Prevacid) 30 mg Q12HR ORAL 01/05/20 21:00 02/04/20 20:59 01/08/20 20:12 Metronidazole 100 ml @ 100 mls/hr Q8HR IVPB 01/06/20 22:00 01/12/20 21:59 01/09/20 06:18 Micafungin Sodium 100 mg/Sodium Chloride 110 ml @ 110 mls/hr Q24H IVPB 01/05/20 16:00 01/12/20 15:59 01/08/20 17:30 Naloxone HCl (Narcan) 0.1 mg Q1M PRN IVP RR<10/min OR SBP<90 mmHg 01/01/20 09:30 03/31/20 09:29 Ondansetron HCl (Zofran) 4 mg Q4H PRN IVP Nausea & Vomiting 12/30/19 21:40 01/29/20 21:39 01/08/20 20:27 Oxycodone/ Acetaminophen (Percocet 5-325) 1 tab Q4H PRN ORAL Moderate Pain (Pain Scale 4-6) 01/08/20 09:45 01/15/20 09:44 01/08/20 20:01 Phytonadione (Vitamin K) 10 mg ONCE A WEEK SUBQ 01/01/20 09:00 03/24/20 08:59 01/08/20 10:52 Pramipexole (Mirapex) 1 mg TWICE A DAY ORAL 12/30/19 09:00 01/16/20 17:59 01/08/20 18:48 Prochlorperazine (Compazine) 10 mg Q6H PRN IV Nausea & Vomiting 01/05/20 08:45 02/04/20 08:44 01/08/20 14:51 Quetiapine Fumarate (SEROqueL) 200 mg BEDTIME ORAL 12/29/19 21:00 01/31/20 20:59 01/08/20 20:12 Temazepam (RestoriL) 7.5 mg BEDTIME PRN ORAL Insomnia 01/08/20 22:30 01/15/20 22:29 01/08/20 22:45 Assessment/Plan Assessment/Plan IMPRESSION: 1. Status post laparotomy. 2. Ulcerative colitis. 3. Bilateral pleural effuions and atelectasis. DISCUSSION: Postoperative care per Dr. Mckeon Continue oxygen and pulmonary hygiene. I will follow carefully. Pain control. DVT prophylaxis. GI prophylaxis. CT abd shows bilateral pleural effusions with compressive atelectasis Advised to intensify pulmonary hygiene with IS Will follow Currently asymptomatic from pulmonary perspective On low flow O2 Onesimo Perales Omar Syed MD Jan 09, 2020 07:00
[2020-01-09 07:02] LABS: ALBUMIN 1.6 G/DL (3.4-5.0); ALBUMIN/GLOBULIN RATIO 0.5 (1.0-2.7); BILIRUBIN,TOTAL 0.2 MG/DL (0.2-1.0); CALCIUM 8.2 MG/DL (8.5-10.1); PHOSPHORUS 3.8 MG/DL (2.5-4.9); POTASSIUM 3.3 MMOL/L (3.5-5.1)
--- NOTE | 2020-01-09 07:20 | NUR ---
HAND-OFF: Report given to Ana KAYE. Was endorsed about patient POC and that she will be having a surgical prosidure, she remained NPO AND TO HOLD HEPARIN INDICATED. Addendum: 01/09/20 at 0759 by Lucas Abebe RN HAND-OFF: Report given to Wrong patient. Report given to Ana KAYE. The patient is no going to have surgery. She is alert and stable and cooperative with her care and is on a full liquid diet .
[2020-01-09 07:21] LABS: CREATINE KINASE 93 U/L (26-308)
--- NOTE | 2020-01-09 07:22 | NUR ---
HAND-OFF: Report given to Ana RN and endoresd POC.
--- NOTE | 2020-01-09 07:25 | NUR ---
NURSE NOTES: Handoff received from Hamzah RN. Patient is asleep, no signs of distress noted, breathing is even and unlabored on room air. CRISTÓBAL PICC is running TPN as ordered. Caban catheter is patent and draining to gravity. Bed is low and locked, side rails up x2, call light is within reach.
[2020-01-09 08:00] VITALS: BP 106/64
[2020-01-09] MEDS: Pramipexole 0.5mg tab ORAL SCH ×2 (09:37→18:06)
--- NOTE | 2020-01-09 09:37 | General Progress Note ---
Progress Note Progress Note AVSS Had restless leg/body syndrome flare overnight - now feeling better Abdomen soft, incision still draining but less Ileostomy stable Flank and thigh edema is decreasing with daily Lasix IV Urine 8700 (Lasix x 1) Ileostomy 215 (minimal po intake) On Amikacin, Flagyl and Micafungin WBC 10,500 Hgb 9.8 Platelets up 478,000 K 3.3 albumin 1.6 Imp: Stable with infected wound drainage from abdomen Plan; continue antibiotics, Caban, TPN Lasix 40mg IV q12h f/u labs GI to do J pouch endoscopy ? 01/01 if stable - will need MAC anesthesia Gio Mckeon MD Jan 09, 2020 09:36
--- NOTE | 2020-01-09 10:04 | NUR ---
CASE MANAGEMENT: REVIEW 01/09/2020 SI:POUCHITIS VS: T 98.6 HR 92 RR 20 B/P 135/74 SATS 92% ON RA LABS: NA 134 K 3.3 CL 97 BUN 24 GLU 115 CA 8.2 ALP 139 IS;LASIX IV Q12H MIRAPEX PO BID SEROQUEL PO QHS KCL IV X1 TPN @ Q24H MICAFUNGIN IV Q24H AMIKACIN IV Q35H INSULIN ASPART SUBQ Q6H FLAGYL IV Q8H MED/SURG PLAN OF CARE: ENDOSCOPY OF BOWEL POUCH
[2020-01-09 12:00] VITALS: BP 93/54
--- NOTE | 2020-01-09 13:53 | General Progress Note ---
Subjective ROS Limited/Unobtainable: Yes Allergies: Coded Allergies: AMPICILLIN (Verified Allergy, Unknown, 12/17/19) TETRACYCLINE (Verified Allergy, Unknown, 12/17/19) Objective Last 24 Hour Vital Signs Date Time Temp Pulse Resp B/P (MAP) Pulse Ox O2 Delivery O2 Flow Rate FiO2 01/09/20 10:07 98.6 01/09/20 09:00 Room Air 01/09/20 08:00 99.0 98 19 106/64 (78) 95 01/09/20 07:00 95 Nasal Cannula 2.0 28 01/09/20 04:00 98.6 92 20 135/74 (94) 92 01/09/20 00:00 98.0 91 20 121/67 (85) 93 01/08/20 21:00 Room Air 01/08/20 20:00 98.3 94 20 98/54 (69) 90 01/08/20 18:52 100 Nasal Cannula 2.0 28 01/08/20 16:00 98.4 95 20 108/66 (80) 95 Intake and Output 01/08/20 01/09/20 18:59 06:59 Intake Total 1570 ml 380 ml Output Total 5700 ml 3220 ml Balance -4130 ml -2840 ml Intake Oral 480 ml 380 ml IV Total 1090 ml Output Urine Total 5500 ml 3200 ml Other 200 ml 20 ml Laboratory Tests 01/08/20 18:44: POC Whole Blood Glucose [Pending] 01/08/20 23:35: POC Whole Blood Glucose 134H 01/09/20 05:20: White Blood Count 10.5, Red Blood Count 3.24L, Hemoglobin 9.8L, Hematocrit 29.2L , Mean Corpuscular Volume 90, Mean Corpuscular Hemoglobin 30.1, Mean Corpuscular Hemoglobin Concent 33.5, Red Cell Distribution Width 15.0H, Platelet Count 478H , Mean Platelet Volume 7.1, Neutrophils (%) (Auto) 68.1, Lymphocytes (%) (Auto) 13.2L, Monocytes (%) (Auto) 8.9, Eosinophils (%) (Auto) 9.0H, Basophils (%) (Auto) 0.8, Sodium Level 134L, Potassium Level 3.3L, Chloride Level 97L, Carbon Dioxide Level 33H, Anion Gap 4L, Blood Urea Nitrogen 24H, Creatinine 1.0, Estimat Glomerular Filtration Rate 56.5, Glucose Level 115H, Calcium Level 8.2L, Phosphorus Level 3.8, Magnesium Level 1.9, Total Bilirubin 0.2, Aspartate Amino Transf (AST/SGOT) 22, Alanine Aminotransferase (ALT/SGPT) 25, Alkaline Phosphatase 139H, Total Creatine Kinase 93, Total Protein 4.8L, Albumin 1.6L, Globulin 3.2, Albumin/Globulin Ratio 0.5L 01/09/20 06:30: POC Whole Blood Glucose 123H 01/09/20 12:03: POC Whole Blood Glucose 132H Height (Feet): 5 Height (Inches): 1.00 Weight (Pounds): 152 General Appearance: no apparent distress EENT: normal ENT inspection Neck: supple Cardiovascular: normal peripheral pulses Respiratory/Chest: lungs clear Abdomen: normal bowel sounds, non tender, soft Extremities: non-tender Assessment/Plan Problem List: (1) Failed Ileocecal Pouch (2) Leg edema, left ICD Codes: R60.0 - Localized edema SNOMED: 678430039 (3) Abdominal pain ICD Codes: R10.9 - Unspecified abdominal pain SNOMED: 76422124 (4) Colostomy and enterostomy complications SNOMED: 341188647 (5) Ulcerative colitis ICD Codes: K51.90 - Ulcerative colitis, unspecified, without complications SNOMED: 50585588 Assessment/Plan: plan pouchoscopy and possible hemostasis on Sunday fu surg recs fu labs will Amando Walters MD Jan 09, 2020 13:53
--- NOTE | 2020-01-09 15:44 | NUR ---
P.T Weekly Progress Notes: Pt seen this past week of skilled P.T services . Tx consisted of thera ex, ADL/functional mobility training and gait training using the FWW. Pt. responded well from therapy despite c/o pain 3-5/10 on her R hip and episodes of nausea. Pt currently require SBA X 1 for bed mobility and transfer mobilities. Pt able to ambulate average distance of 80-[address] using the FWW with SBA x 1 . Pt will continue to benefit from skilled P.T service to further improve her endurance , strength, mobility independence and safety. Recommend home P.T upon DC from this facility.
[2020-01-09 16:00] VITALS: BP 107/64
[2020-01-09] MEDS: Micafungin 100 MG in NS 110 ML IVPB SCH (16:14)
--- NOTE | 2020-01-09 18:00 | NUR ---
NURSE NOTES: Total Ileo output: 270 Total urine output: 4400 Patient was able to walk with the PT around the halls x2 today. Patient reported nausea x2 today and received zofran, patient also reported pain level 7/10 2x today and received dilaudid as ordered. Patient was encouraged to increase oral intake, however she did not eat much of her meals today.
--- NOTE | 2020-01-09 19:20 | NUR ---
NURSE HAND-OFF: Important Events on Shift:[none] Patient Status: stable Diet: full liquid Pending Orders: none Pending Results/Labs: Pending MD notification: Latest Vital Signs: Temperature 98.3 , Pulse 86 , B/P 107 /64 , Respiratory Rate 18 , O2 SAT 96 , Room Air, O2 Flow Rate 2.0 . Vital Sign Comment: Latest Jimenez Fall Score: 60 Fall Risk: High Risk Safety Measures: Call light Within Reach, Bed Alarm Zone 1, Side Rails Side Rails x2, Bed position Low and Locked. Fall Precautions: Yellow Socks Patient Fall Education Report given to Jacqueline KAYE.
[2020-01-09 20:00] VITALS: BP 104/59
--- NOTE | 2020-01-09 20:00 | NUR ---
NURSE NOTES: received pt and report from VARGAS Moreno. Patient alert and oriented x 4 with no acute s/s of distress and with complaint of 6/10 pain. Will administer pain meds when due. Ileo site noted and draining. PICC site noted, will do PICC line dressing change later on in the shift. Caban noted and draining. Plan of care discussed.
--- NOTE | 2020-01-09 20:30 | NUR ---
NURSE NOTES: while passing meds, patient threw up about 100ml of greenish vomit. Patient given compazine for the vomiting. will follow up.
[2020-01-09] MEDS: Dyna-Hex 2% Top Sol 2oz TOPIC SCH (20:48)
[2020-01-09] MEDS: QUEtiapine 200mg tab ORAL SCH (20:48)
[2020-01-09] MEDS: Fat Emulsion Iv 20% 240 ML in Tpn 1,680 ML IV SCH (20:49)
--- NOTE | 2020-01-09 21:38 | Infectious Diseases Prog Note ---
Assessment/Plan Assessment/Plan ASSESSMENT AND PLAN: 1. e.coli uti, morganella uti, left leg cellulitis, ? reaction/atypical drug rash to aztreonam, allergies - ampicillin, tetracycline s/p surgery on 12/29/19 - significant leukocytosis, ? sepsis vs post-surgical leukocytosis fungemia risk, TPN atelectasis vs pna (aspiration/hcap) intra-abdominal fluid culture, ? abscess - e.coli, s-amikacin elevated Ck noted - ? daptomycin - held - ck level less wound drainage per surgery note - ? wound infection - wound culture with e.coli and esbl proteus both sensitive to amikacin CT noted - incidental abscess per report - amikacin, flagyl, micafungin - day # 10 post-op, discontinue vancomycin since no mrsa growing from culture - monitor labs, cr, cbc - leukocytosis resolved - management per Dr. Mckeon - d/w RN and patient - clinically better, less wound drainage 2. skin care per protocol - ? fungal component, on clotrimazole cream 3. 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 4. History of Narcisa ileostomy. 5. History of ulcerative colitis. 6. History of multiple abdominal surgeries. 7. History of cholecystectomy. 8. History of peristomal hernia and mesh. 9. History of colectomy. 10. Continue treatment per Dr. Mckeon and consultants. 11. Allergies to ampicillin, tetracycline. She gets hives with ampicillin. 12. Social history is negative. 13. Family history is noncontributory. 14. MAR is noted. 15. Case was discussed with RN. 16. Case was discussed with Dr. Mckeon. 17. Case was discussed with the patient. Subjective Constitutional: Denies: fever HEENT: Denies: congestion Respiratory: Denies: shortness of breath Cardiovascular: Denies: chest pain Gastrointestinal/Abdominal: Denies: nausea, vomiting Genitourinary: Reports: other - + zheng Neurologic: Denies: headache Psychiatric: Reports: other - NA Skin: Denies: rash Hematologic: Denies: bleeding Musculoskeletal: Denies: pain Allergies: Coded Allergies: AMPICILLIN (Verified Allergy, Unknown, 12/17/19) TETRACYCLINE (Verified Allergy, Unknown, 12/17/19) Objective Last 24 Hour Vital Signs Date Time Temp Pulse Resp B/P (MAP) Pulse Ox O2 Delivery O2 Flow Rate FiO2 01/09/20 19:05 96 Room Air 21 01/09/20 18:37 98.3 01/09/20 16:00 98.3 86 18 107/64 (78) 97 01/09/20 15:23 97.7 01/09/20 12:00 97.7 89 17 93/54 (67) 95 01/09/20 10:07 98.6 01/09/20 09:00 Room Air 01/09/20 08:00 99.0 98 19 106/64 (78) 95 01/09/20 07:00 95 Nasal Cannula 2.0 28 01/09/20 04:00 98.6 92 20 135/74 (94) 92 01/09/20 00:00 98.0 91 20 121/67 (85) 93 Height (Feet): 5 Height (Inches): 1.00 Weight (Pounds): 152 General Appearance: no acute distress HEENT: normocephalic, atraumatic, anicteric, mucous membranes moist Respiratory/Chest: lungs clear, normal breath sounds, no respiratory distress, no accessory muscle use Cardiovascular: normal rate, regular rhythm, no gallop/murmur, no JVD Abdomen: normal bowel sounds, soft, non tender, no organomegaly, non distended Genitourinary: other - + zheng - uirne slt cloudy Extremities: no cyanosis Skin: rash - better 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 No focal airspace consolidation. No effusions. Normal heart size Impression: Acuity indeterminate mild interstitial disease. Correlate with clinical findings. No focal infiltrates CT abdomen and pelvis: Impression: Postsurgical changes, as described, including right lower quadrant simple ileostomy, prior total colectomy, and J-pouch. There is abundant anterior pelvic apparent defunctionalized small bowel which appears to be in continuity with and ileoanal J-pouch remnant. Most likely, this just represents old isolated small bowel, but the possibility of any of this representing either tumor or abscess is not completely excludable. Small parastomal hernia within the right lower quadrant ileostomy. This appears to be nonobstructive. Equivocal mild wall thickening of left upper quadrant jejunal loops. Enteritis is possible and correlation with clinical findings is recommended Age-indeterminate L2 vertebral body compression fracture deformity. Suspect old. Consider MRI if clinically relevant Prior cholecystectomy Inferior vena cava filter Findings discussed by phone Chest x-ray - 12/29/19 - FINDINGS: Lungs: Retrocardiac atelectasis versus infiltrate. No consolidation or interstitial edema. Pleural space: Trace left pleural effusion. Heart: Unremarkable. No cardiomegaly. Bones/joints: Unremarkable. Tubes, lines and devices: Endotracheal tube terminates 3 cm above the kyung. Left upper extremity PICC line terminates within the SVC. IMPRESSION: 1. Endotracheal tube terminates 3 cm above the kyung. 2. Left upper extremity PICC line terminates within the SVC. 3. Retrocardiac atelectasis versus infiltrate. 4. Trace left pleural effusion. Chest x-ray - 12/31/19 - Procedure: XRAY Chest 1v Procedure: XRAY Chest 1v Reason for study: Shortness of breath. Comparison films: 12/29/2019. FINDINGS: Endotracheal tube has been removed. Left PICC line remains in place. There is slight worsening of congestion and edema. Cardiac and mediastinal silhouette are within normal limits. CP angles are sharp. The bony thorax appear unremarkable. IMPRESSION: Slight worsening of congestion and edema. Chest x-ray - 01/02/20 - Procedure: XRAY Chest 1v Indication: Reason For Exam: SOB Technique: Single AP view of the chest. Comparison: Chest radiograph dated 12/31/2019 Findings: The cardiomediastinal silhouette is unchanged in appearance. No new airspace consolidation. Stable pulmonary vascular congestion. Demonstration of streaky retrocardiac airspace opacity. No pneumothorax or pleural effusion. Unchanged left PICC. IMPRESSION: No significant change from prior examination. CT abdomen and pelvis- 01/06/20 - Impression: Postsurgical changes, as described. Small amount of fluid and gas is seen along the incision no definite incisional. Incidental abscess demonstrated. Slow traversal of contrast small bowel but no definite evidence of small bowel obstruction Interim Zheng catheter placement Other findings as noted, including stable old healed fracture deformity left pubic bone, inferior vena cava filter, prior cholecystectomy, L2 vertebral body compression fracture Microbiology Date/Time Source Procedure Growth Status 01/05/20 00:48 Stool Clostridium difficile Toxin Assay - Final Complete 01/03/20 16:00 Other Gram Stain - Final Complete 01/03/20 16:00 Wound Culture - Final Escherichia Coli Proteus Mirabilis Esbl Complete 01/01/20 16:00 Blood Blood Culture - Final NO GROWTH AFTER 5 DAYS Complete 12/29/19 14:00 Abdominal Fluid Gram Stain - Final Complete 12/29/19 14:00 Aerobic Culture - Final Escherichia Coli Complete 12/29/19 14:00 Abdominal Fluid Anaerobic Culture - Final NO ANAEROBES ISOLATED Complete 12/27/19 11:13 Nasopharynx SARS-CoV-2 RdRp Gene Assay - Final Complete 12/22/19 19:30 Urine,Clean Catch Urine Culture - Final Morganella Morg Spp Morganii Complete Laboratory Tests Test 01/08/20 23:35 01/09/20 05:20 01/09/20 06:30 01/09/20 12:03 POC Whole Blood Glucose 134 MG/DL (74-106) H 123 MG/DL (74-106) H 132 MG/DL (74-106) H White Blood Count 10.5 K/UL (4.8-10.8) Red Blood Count 3.24 M/UL (4.20-5.40) L Hemoglobin 9.8 G/DL (12.0-16.0) L Hematocrit 29.2 % (37.0-47.0) L Mean Corpuscular Volume 90 FL (80-99) Mean Corpuscular Hemoglobin 30.1 PG (27.0-31.0) Mean Corpuscular Hemoglobin Concent 33.5 G/DL (32.0-36.0) Red Cell Distribution Width 15.0 % (11.6-14.8) H Platelet Count 478 K/UL (150-450) H Mean Platelet Volume 7.1 FL (6.5-10.1) Neutrophils (%) (Auto) 68.1 % (45.0-75.0) Lymphocytes (%) (Auto) 13.2 % (20.0-45.0) L Monocytes (%) (Auto) 8.9 % (1.0-10.0) Eosinophils (%) (Auto) 9.0 % (0.0-3.0) H Basophils (%) (Auto) 0.8 % (0.0-2.0) Sodium Level 134 MMOL/L (136-145) L Potassium Level 3.3 MMOL/L (3.5-5.1) L Chloride Level 97 MMOL/L (98-107) L Carbon Dioxide Level 33 MMOL/L (21-32) H Anion Gap 4 mmol/L (5-15) L Blood Urea Nitrogen 24 mg/dL (7-18) H Creatinine 1.0 MG/DL (0.55-1.30) Estimat Glomerular Filtration Rate 56.5 mL/min (>60) Glucose Level 115 MG/DL (74-106) H Calcium Level 8.2 MG/DL (8.5-10.1) L Phosphorus Level 3.8 MG/DL (2.5-4.9) Magnesium Level 1.9 MG/DL (1.8-2.4) Total Bilirubin 0.2 MG/DL (0.2-1.0) Aspartate Amino Transf (AST/SGOT) 22 U/L (15-37) Alanine Aminotransferase (ALT/SGPT) 25 U/L (12-78) Alkaline Phosphatase 139 U/L (46-116) H Total Creatine Kinase 93 U/L (26-308) Total Protein 4.8 G/DL (6.4-8.2) L Albumin 1.6 G/DL (3.4-5.0) L Globulin 3.2 g/dL Albumin/Globulin Ratio 0.5 (1.0-2.7) L Test 01/09/20 18:17 POC Whole Blood Glucose 118 MG/DL (74-106) H Current Medications Medications (Trade) Dose Ordered Sig/Margarette Route PRN Reason Start Time Stop Time Status Last Admin Dose Admin Acetaminophen/ Butalbital/ Caffeine (Fioricet) 1 tab Q6H PRN ORAL headache 12/29/19 20:30 01/18/20 20:29 12/30/19 09:04 Al Hydroxide/Mg Hydroxide (Mylanta II) 30 ml Q6H PRN ORAL GAS/DYSPEPSIA 01/05/20 08:45 02/04/20 08:44 Amikacin Protocol (Amikacin pharmacy to dose) 1 ea DAILY PRN MISC Per rx protocol 12/29/19 20:30 01/28/20 20:29 Amikacin Sulfate 750 mg/Sodium Chloride 113 ml @ 113 mls/hr Q36H IV 01/04/20 17:00 01/16/20 23:59 01/09/20 06:17 Chlorhexidine Gluconate (Patti-Hex 2%) 1 applic DAILY@2000 TOPIC 12/29/19 20:30 03/28/20 20:29 01/09/20 20:48 Clotrimazole (Lotrimin) 1 applic BID TOPIC 12/30/19 09:00 03/20/20 10:29 01/09/20 18:07 Dextrose 1,000 ml @ 0 mls/hr Q24H PRN IV PN interrupted or unavailable 12/29/19 20:30 01/28/20 20:29 Dextrose (Dextrose 50%) 25 ml Q30M PRN IV Hypoglycemia 12/29/19 20:30 03/17/20 19:59 Dextrose (Dextrose 50%) 50 ml Q30M PRN IV Hypoglycemia 12/29/19 20:30 03/17/20 19:59 Diphenhydramine HCl (Benadryl) 25 mg Q4H PRN IVP Itching 12/30/19 21:50 01/29/20 21:49 01/09/20 01:01 Diphenhydramine HCl (Benadryl) 25 mg Q6H PRN ORAL Itching 12/29/19 20:30 01/19/20 20:29 01/09/20 18:06 Fat Emulsion Intravenous 240 ml/Amino Acids/ Electrolytes/ Dextrose 1,920 ml @ 80 mls/hr Q24H IV 12/30/19 20:00 01/27/20 19:59 01/09/20 20:49 Furosemide (Lasix) 40 mg EVERY 12 HOURS IV 01/09/20 09:30 02/08/20 09:29 01/09/20 20:48 Hydromorphone HCl (Dilaudid) 1 mg Q3H PRN SUBQ Severe Breakthru Pain (>7) 01/09/20 09:25 01/16/20 09:24 01/09/20 18:07 Hydroxyzine HCl (Atarax) 50 mg Q6H PRN ORAL Itching 01/02/20 19:15 01/28/20 20:29 01/08/20 23:31 Insulin Aspart (NovoLOG) Q6HR SUBQ 12/30/19 00:00 03/18/20 00:00 Lansoprazole (Prevacid) 30 mg Q12HR ORAL 01/05/20 21:00 02/04/20 20:59 01/09/20 20:48 Metronidazole 100 ml @ 100 mls/hr Q8HR IVPB 01/06/20 22:00 01/12/20 21:59 01/09/20 14:00 Micafungin Sodium 100 mg/Sodium Chloride 110 ml @ 110 mls/hr Q24H IVPB 01/05/20 16:00 01/12/20 15:59 01/09/20 16:14 Ondansetron HCl (Zofran) 4 mg Q4H PRN IVP Nausea & Vomiting 12/30/19 21:40 01/29/20 21:39 01/09/20 18:07 Oxycodone/ Acetaminophen (Percocet 5-325) 1 tab Q4H PRN ORAL Moderate Pain (Pain Scale 4-6) 01/08/20 09:45 01/15/20 09:44 01/08/20 20:01 Phytonadione (Vitamin K) 10 mg ONCE A WEEK SUBQ 01/01/20 09:00 03/24/20 08:59 01/08/20 10:52 Pramipexole (Mirapex) 1 mg TWICE A DAY ORAL 12/30/19 09:00 01/16/20 17:59 01/09/20 18:06 Prochlorperazine (Compazine) 10 mg Q6H PRN IV Nausea & Vomiting 01/05/20 08:45 02/04/20 08:44 01/09/20 21:16 Quetiapine Fumarate (SEROqueL) 200 mg BEDTIME ORAL 12/29/19 21:00 01/31/20 20:59 01/09/20 20:48 Temazepam (RestoriL) 7.5 mg BEDTIME PRN ORAL Insomnia 01/08/20 22:30 01/15/20 22:29 01/08/20 22:45 Kevan Burgess MD Jan 09, 2020 21:38
[2020-01-10] VITALS: BP 94/49
--- NOTE | 2020-01-10 | NUR ---
NURSE NOTES: patients vitals normal with exception that blood pressure running on low end. Patient was still requesting sleep medication despite a blood pressure of 94/49. advised patient and educated pt on risks of administering tamazepam which could further lower blood pressure. agreed with patient that we would check the blood pressure again after 30 minutes. when i went in to check on the patient, she was sleeping comfortably and with no s/s of acute distress. will follow up when patient wakes up.
--- NOTE | 2020-01-10 01:36 | NUR ---
NURSE NOTES: checked in on patient. still sleeping and with no acute s/s of distress. will follow up on vital signs at 0400.
--- NOTE | 2020-01-10 02:38 | NUR ---
NURSE NOTES: pt still asleep and in no acute distress.
[2020-01-10] MEDS: HYDROmorphone 1mg/ml Carpuject SUBQ PRN ×6 (03:19→22:32)
[2020-01-10 04:00] VITALS: BP 106/58
--- NOTE | 2020-01-10 04:30 | NUR ---
NURSE NOTES: PICC line dressing changed. Surgical dressing changed (4x4, ABD, paper tape). old surgical dressing with serous drainage. There along the line of dangelo, there is a portion of wound edge not approximating each other showing a slight opening. Will endorse to dayshift nurse. Patient tolerated both procedures well wo any distress.
--- NOTE | 2020-01-10 05:45 | NUR ---
NURSE NOTES: in the process of taking daily weight on bedscale, big discrepancy between weight i was obtaining vs past recorded. Patient continually refused to get out of bed so that the bed can be zeroed and weight accurately obtained. Will endorse to day shift nurse to obtain an accurate weight for the pt.
[2020-01-10] MEDS: NovoLOG Insulin Flexpen SUBQ SCH ×5 (05:47→23:06)
[2020-01-10 06:25] LABS: BASOPHILS % (AUTO) 1.9 % (0.0-2.0); EOSINOPHILS % (AUTO) 11.8 % (0.0-3.0); HEMOGLOBIN 10.1 G/DL (12.0-16.0); LYMPHOCYTES % (AUTO) 18.3 % (20.0-45.0); MEAN CORPUSCULAR VOLUME 90 FL (80-99); MONOCYTES % (AUTO) 11.2 % (1.0-10.0); NEUTROPHILS % (AUTO) 56.8 % (45.0-75.0); PLATELET COUNT 495 K/UL (150-450); RED BLOOD COUNT 3.32 M/UL (4.20-5.40); RED CELL DISTRIBUTION WIDTH 14.8 % (11.6-14.8); WHITE BLOOD COUNT 9.7 K/UL (4.8-10.8)
[2020-01-10 06:45] LABS: ALBUMIN 1.8 G/DL (3.4-5.0); ALBUMIN/GLOBULIN RATIO 0.5 (1.0-2.7); BILIRUBIN,TOTAL 0.2 MG/DL (0.2-1.0); CALCIUM 7.9 MG/DL (8.5-10.1); CREATININE 1.1 MG/DL (0.55-1.30); PHOSPHORUS 4.4 MG/DL (2.5-4.9); POTASSIUM 3.2 MMOL/L (3.5-5.1)
--- NOTE | 2020-01-10 07:10 | NUR ---
NURSE NOTES: Handoff received from Angel Luis RN. Patient is asleep, no signs of distress noted, breathing is even and unlabored on room air. CRISTÓBAL PICC is running TPN and antibiotics as ordered. Caban catheter is patent and draining to gravity. Bed is low and locked, side rails up x2, call light is within reach.
--- NOTE | 2020-01-10 07:30 | NUR ---
NURSE HAND-OFF: Important Events on Shift:pain management, PICC dressing changed, daily weight endorsed since pt did not want to get out of bed to zero the bed, patient vomited green vomit x1 about 40ml Patient Status: stable Diet: full liquid Pending Orders: NA Pending Results/Labs:NA Pending MD notification:NA Latest Vital Signs: Temperature 98.7 , Pulse 95 , B/P 106 /58 , Respiratory Rate 13 , O2 SAT 93 , Room Air, O2 Flow Rate 2.0 . Vital Sign Comment: stable throughout shift Latest Jimenez Fall Score: 60 Fall Risk: High Risk Safety Measures: Call light Within Reach, Bed Alarm Zone 1, Side Rails Side Rails x2, Bed position Low and Locked. Fall Precautions: Yellow Socks Patient Fall Education Report given to VARGAS Hammonds.
[2020-01-10 08:00] VITALS: BP 115/69
[2020-01-10] MEDS: Pramipexole 0.5mg tab ORAL SCH ×2 (08:43→17:21)
--- NOTE | 2020-01-10 09:38 | General Progress Note ---
Progress Note Progress Note AVSS Not taking any liquids po. Small emesis 40cc last night Abdomen mild distention, soft, continued serous drainage from incision. Stoma stable Flank, pelvis and thigh edema markedly improved Urine 9100 (lasix q12h) Ileostomy 345 WBC 9700 Hgb 10.1 UP Paltelets up 495,000 K 3.2 Mg 1.7 Albumin 1.8 Imp: Continued wound drainage and emesis x 1 - r/o partial SBO/ileus Improved anasarca 'Plan; continue laxis q12h today IV 40mg, TPN, Caban may need f/u CT scan to undergo J pouch endoscopy by Dr. Vaz 01/12 with MAC anesthesia increase KCL in TPN + bolus infusions Gio Mckeon MD Jan 10, 2020 09:38
--- NOTE | 2020-01-10 10:41 | Pulmonology Progress Note ---
Subjective ROS Limited/Unobtainable: Yes Interval Events: None new Constitutional: Denies: fever HEENT: Repors: no symptoms Respiratory: Reports: no symptoms Cardiovascular: Reports: no symptoms Gastrointestinal/Abdominal: Denies: nausea, vomiting Genitourinary: Reports: no symptoms Psychiatric: Reports: other - NA Skin: Denies: rash Musculoskeletal: Denies: pain Allergies: Coded Allergies: AMPICILLIN (Verified Allergy, Unknown, 12/17/19) TETRACYCLINE (Verified Allergy, Unknown, 12/17/19) Objective Last 24 Hour Vital Signs Date Time Temp Pulse Resp B/P (MAP) Pulse Ox O2 Delivery O2 Flow Rate FiO2 01/10/20 09:13 98.7 01/10/20 04:00 98.7 95 13 106/58 (74) 93 01/10/20 00:00 98.6 92 14 94/49 (64) 95 01/09/20 21:00 Room Air 01/09/20 20:00 97.9 90 16 104/59 (74) 94 01/09/20 19:05 96 Room Air 21 01/09/20 18:37 98.3 01/09/20 16:00 98.3 86 18 107/64 (78) 97 01/09/20 15:23 97.7 01/09/20 12:00 97.7 89 17 93/54 (67) 95 Intake and Output 01/09/20 01/10/20 19:00 07:00 Intake Total 1900 ml 1740 ml Output Total 4670 ml 4815 ml Balance -2770 ml -3075 ml Intake Oral 1900 ml 1100 ml IV Total 640 ml Output Urine Total 4400 ml 4700 ml Emesis 40 ml Other 270 ml 75 ml General Appearance: no acute distress Respiratory: chest wall non-tender Cardiovascular: normal peripheral pulses Abdomen: soft, non tender Laboratory Tests 01/09/20 12:03: POC Whole Blood Glucose 132H 01/09/20 18:17: POC Whole Blood Glucose 118H 01/09/20 23:24: POC Whole Blood Glucose 132H 01/10/20 05:00: White Blood Count 9.7, Red Blood Count 3.32L, Hemoglobin 10.1L, Hematocrit 30.0L , Mean Corpuscular Volume 90, Mean Corpuscular Hemoglobin 30.3, Mean Corpuscular Hemoglobin Concent 33.6, Red Cell Distribution Width 14.8, Platelet Count 495H, Mean Platelet Volume 6.3L, Neutrophils (%) (Auto) 56.8, Lymphocytes (%) (Auto) 18.3L, Monocytes (%) (Auto) 11.2H, Eosinophils (%) (Auto) 11.8H, Basophils (%) (Auto) 1.9, Sodium Level 132L, Potassium Level 3.2L, Chloride Level 93L, Carbon Dioxide Level 35H, Anion Gap 4L, Blood Urea Nitrogen 26H, Creatinine 1.1, Estimat Glomerular Filtration Rate 50.7, Glucose Level 106, Calcium Level 7.9L, Phosphorus Level 4.4, Magnesium Level 1.7L, Total Bilirubin 0.2, Aspartate Amino Transf (AST/SGOT) 23, Alanine Aminotransferase (ALT/SGPT) 27, Alkaline Phosphatase 144H, Total Protein 5.3L, Albumin 1.8L, Globulin 3.5, Albumin/Jody bulin Ratio 0.5L 01/10/20 05:37: POC Whole Blood Glucose 113H Current Medications Medications (Trade) Dose Ordered Sig/Margarette Route PRN Reason Start Time Stop Time Status Last Admin Dose Admin Acetaminophen/ Butalbital/ Caffeine (Fioricet) 1 tab Q6H PRN ORAL headache 12/29/19 20:30 01/18/20 20:29 12/30/19 09:04 Al Hydroxide/Mg Hydroxide (Mylanta II) 30 ml Q6H PRN ORAL GAS/DYSPEPSIA 01/05/20 08:45 02/04/20 08:44 Amikacin Protocol (Amikacin pharmacy to dose) 1 ea DAILY PRN MISC Per rx protocol 12/29/19 20:30 01/28/20 20:29 Amikacin Sulfate 750 mg/Sodium Chloride 113 ml @ 113 mls/hr Q36H IV 01/04/20 17:00 01/16/20 23:59 01/09/20 06:17 Chlorhexidine Gluconate (Patti-Hex 2%) 1 applic DAILY@1999 TOPIC 12/29/19 20:30 03/28/20 20:29 01/09/20 20:48 Clotrimazole (Lotrimin) 1 applic BID TOPIC 12/30/19 09:00 03/20/20 10:29 01/10/20 09:03 Dextrose 1,000 ml @ 0 mls/hr Q24H PRN IV PN interrupted or unavailable 12/29/19 20:30 01/28/20 20:29 Dextrose (Dextrose 50%) 25 ml Q30M PRN IV Hypoglycemia 12/29/19 20:30 03/17/20 19:59 Dextrose (Dextrose 50%) 50 ml Q30M PRN IV Hypoglycemia 12/29/19 20:30 03/17/20 19:59 Diphenhydramine HCl (Benadryl) 25 mg Q4H PRN IVP Itching 12/30/19 21:50 01/29/20 21:49 01/09/20 01:01 Diphenhydramine HCl (Benadryl) 25 mg Q6H PRN ORAL Itching 12/29/19 20:30 01/19/20 20:29 01/09/20 18:06 Fat Emulsion Intravenous 240 ml/Amino Acids/ Electrolytes/ Dextrose 1,920 ml @ 80 mls/hr Q24H IV 12/30/19 20:00 01/27/20 19:59 01/09/20 20:49 Furosemide (Lasix) 40 mg EVERY 12 HOURS IV 01/09/20 09:30 02/08/20 09:29 01/10/20 08:47 Hydromorphone HCl (Dilaudid) 1 mg Q3H PRN SUBQ Severe Breakthru Pain (>7) 01/09/20 09:25 01/16/20 09:24 01/10/20 08:43 Hydroxyzine HCl (Atarax) 50 mg Q6H PRN ORAL Itching 01/02/20 19:15 01/28/20 20:29 01/08/20 23:31 Insulin Aspart (NovoLOG) Q6HR SUBQ 12/30/19 00:00 03/18/20 00:00 Lansoprazole (Prevacid) 30 mg Q12HR ORAL 01/05/20 21:00 02/04/20 20:59 01/10/20 08:47 Magnesium Sulfate 100 ml @ 100 mls/hr Q1H IVPB 01/10/20 09:30 01/10/20 11:29 01/10/20 10:34 Metronidazole 100 ml @ 100 mls/hr Q8HR IVPB 01/06/20 22:00 01/12/20 21:59 01/10/20 05:39 Micafungin Sodium 100 mg/Sodium Chloride 110 ml @ 110 mls/hr Q24H IVPB 01/05/20 16:00 01/12/20 15:59 01/09/20 16:14 Ondansetron HCl (Zofran) 4 mg Q4H PRN IVP Nausea & Vomiting 12/30/19 21:40 01/29/20 21:39 01/09/20 18:07 Oxycodone/ Acetaminophen (Percocet 5-325) 1 tab Q4H PRN ORAL Moderate Pain (Pain Scale 4-6) 01/08/20 09:45 01/15/20 09:44 01/08/20 20:01 Phytonadione (Vitamin K) 10 mg ONCE A WEEK SUBQ 01/01/20 09:00 03/24/20 08:59 01/08/20 10:52 Potassium Chloride 100 ml @ 100 mls/hr Q1HR IVPB 01/10/20 10:00 01/10/20 13:59 01/10/20 10:33 Pramipexole (Mirapex) 1 mg TWICE A DAY ORAL 12/30/19 09:00 01/16/20 17:59 01/10/20 08:43 Prochlorperazine (Compazine) 10 mg Q6H PRN IV Nausea & Vomiting 01/05/20 08:45 02/04/20 08:44 01/09/20 21:16 Quetiapine Fumarate (SEROqueL) 200 mg BEDTIME ORAL 12/29/19 21:00 01/31/20 20:59 01/09/20 20:48 Temazepam (RestoriL) 7.5 mg BEDTIME PRN ORAL Insomnia 01/08/20 22:30 01/15/20 22:29 01/08/20 22:45 Assessment/Plan Assessment/Plan IMPRESSION: 1. Status post laparotomy. 2. Ulcerative colitis. 3. Bilateral pleural effusions and atelectasis. DISCUSSION: Continue oxygen and pulmonary hygiene. I will follow carefully. Pain control. DVT prophylaxis. GI prophylaxis. incentive missy monitor imaging monitor oxygen needs impression, plan, and exam edited and reviewed in detail care discussed with Jarek Mendoza MD Jan 10, 2020 10:41
[2020-01-10] MEDS: DiphenhydrAMINE 50mg/ml Inj IVP PRN (11:06)
[2020-01-10 12:00] VITALS: BP 110/67
[2020-01-10] MEDS: Micafungin 100 MG in NS 110 ML IVPB SCH (15:13)
[2020-01-10 16:00] VITALS: BP 106/63
[2020-01-10] MEDS: Amikacin 750 MG in NS 110 ML IV SCH (17:21)
--- NOTE | 2020-01-10 18:00 | NUR ---
NURSE NOTES: total ileo output: 100 total urine output: 5100 Patient was able to walk the [place] with the PT today x1. Patient reporting nausea and pain throughout the day and was medicated as ordered. Ileo output was 100, however in the afternoon her bag leaked and the output was not measured. The patient's swelling in the BRUNO lower extremities is improving. Patient's sister visited today.
--- NOTE | 2020-01-10 19:45 | NUR ---
NURSE HAND-OFF: Important Events on Shift:[none] Patient Status: stable Diet: full liquid Pending Orders: Pending Results/Labs: Pending MD notification: Latest Vital Signs: Temperature 98.7 , Pulse 91 , B/P 106 /63 , Respiratory Rate 18 , O2 SAT 94 , Room Air, O2 Flow Rate 2.0 . Vital Sign Comment: Latest Jimenez Fall Score: 60 Fall Risk: High Risk Safety Measures: Call light Within Reach, Bed Alarm Zone 1, Side Rails Side Rails x2, Bed position Low and Locked. Fall Precautions: Yellow Socks Patient Fall Education Report given to Wayne KAYE.
--- NOTE | 2020-01-10 19:48 | NUR ---
NURSE NOTES: Report received from Triston KAYE. Patient in stable condition .
[2020-01-10 20:00] VITALS: BP 106/64
[2020-01-10] MEDS: Fat Emulsion Iv 20% 240 ML in Tpn 1,680 ML IV SCH (20:00)
[2020-01-10] MEDS: Dyna-Hex 2% Top Sol 2oz TOPIC SCH (20:57)
[2020-01-10] MEDS: QUEtiapine 200mg tab ORAL SCH (22:14)
[2020-01-11] VITALS: BP 119/68
[2020-01-11] MEDS: HYDROmorphone 1mg/ml Carpuject SUBQ PRN ×5 (02:58→22:25)
[2020-01-11 04:00] VITALS: BP_SYST 106; BP_SYST 97; BP_DIAS 59; BP_DIAS 60
[2020-01-11] MEDS: NovoLOG Insulin Flexpen SUBQ SCH ×4 (06:00→23:54)
[2020-01-11 06:11] LABS: EOSINOPHILS % (AUTO) 12.7 % (0.0-3.0); HEMATOCRIT 29.1 % (37.0-47.0); HEMOGLOBIN 9.8 G/DL (12.0-16.0); LYMPHOCYTES % (AUTO) 20.8 % (20.0-45.0); MEAN CORPUSCULAR VOLUME 90 FL (80-99); MONOCYTES % (AUTO) 8.9 % (1.0-10.0); NEUTROPHILS % (AUTO) 54.6 % (45.0-75.0); PLATELET COUNT 512 K/UL (150-450); RED BLOOD COUNT 3.25 M/UL (4.20-5.40); RED CELL DISTRIBUTION WIDTH 14.5 % (11.6-14.8); WHITE BLOOD COUNT 9.8 K/UL (4.8-10.8)
--- NOTE | 2020-01-11 06:29 | NUR ---
NURSE HAND-OFF: Important Events on Shift: Pain management, total ileo output: 50 mL, brown liquid, patient is a little gassy urine output: 4000 mL. Clear yellow, no foul odor noted Patient reports some back pain d/t laying down, educated and encouraged to move around and ambulate as tolerated. Patient Status: stable Diet: full liquids Pending Orders: Pending Results/Labs:[] Pending MD notification:[] Latest Vital Signs: Temperature 98.6 , Pulse 100 , B/P 97 /59 , Respiratory Rate 18 , O2 SAT 93 , Room Air, O2 Flow Rate 2.0 . Vital Sign Comment: [] Latest Jimenez Fall Score: 60 Fall Risk: High Risk Safety Measures: Call light Within Reach, Bed Alarm Zone 1, Side Rails Side Rails x2, Bed position Low and Locked. Fall Precautions: Yellow Socks Patient Fall Education Report given to
[2020-01-11 06:40] LABS: ALBUMIN 1.7 G/DL (3.4-5.0); ALBUMIN/GLOBULIN RATIO 0.5 (1.0-2.7); BILIRUBIN,TOTAL 0.2 MG/DL (0.2-1.0); CALCIUM 7.9 MG/DL (8.5-10.1); CREATININE 1.1 MG/DL (0.55-1.30); PHOSPHORUS 4.7 MG/DL (2.5-4.9); POTASSIUM 3.6 MMOL/L (3.5-5.1)
--- NOTE | 2020-01-11 07:25 | NUR ---
NURSE NOTES: PATIENT RECEIVED IN STABLE CONDITION.
[2020-01-11 08:00] VITALS: BP 105/65
[2020-01-11] MEDS: Pramipexole 0.5mg tab ORAL SCH ×2 (08:37→18:54)
[2020-01-11] MEDS: oxyCODONE HCL/Acetaminophen 5/325mg ORAL PRN (09:45)
--- NOTE | 2020-01-11 09:51 | Pulmonology Progress Note ---
Subjective Constitutional: Denies: fever HEENT: Repors: no symptoms Respiratory: Reports: no symptoms Cardiovascular: Reports: no symptoms Gastrointestinal/Abdominal: Denies: nausea, vomiting Genitourinary: Reports: no symptoms Psychiatric: Reports: other - NA Skin: Denies: rash Musculoskeletal: Denies: pain Allergies: Coded Allergies: AMPICILLIN (Verified Allergy, Unknown, 12/17/19) TETRACYCLINE (Verified Allergy, Unknown, 12/17/19) Subjective comfortable no distress no sob Objective Last 24 Hour Vital Signs Date Time Temp Pulse Resp B/P (MAP) Pulse Ox O2 Delivery O2 Flow Rate FiO2 01/11/20 08:00 98.5 89 19 105/65 (78) 93 01/11/20 07:30 98.6 01/11/20 04:00 98.6 100 18 97/59 (72) 93 01/11/20 03:28 98.2 01/11/20 00:00 98.2 90 18 119/68 (85) 94 01/10/20 23:02 98.6 01/10/20 21:00 Room Air 01/10/20 20:59 96 Room Air 21 01/10/20 20:00 98.6 92 16 106/64 (78) 95 01/10/20 18:55 98.7 01/10/20 16:00 98.5 91 18 106/63 (77) 94 01/10/20 15:43 98.7 01/10/20 12:25 98.7 01/10/20 12:00 98.0 86 19 110/67 (81) 95 Intake and Output 01/10/20 01/11/20 19:00 07:00 Intake Total 1200 ml 640 ml Output Total 5200 ml 4050 ml Balance -4000 ml -3410 ml Intake Oral 1200 ml 640 ml Output Urine Total 5100 ml 4000 ml Other 100 ml 50 ml General Appearance: no acute distress Respiratory: chest wall non-tender, normal breath sounds, no respiratory distress, no accessory muscle use Cardiovascular: normal peripheral pulses, normal rate, regular rhythm, no gallop/murmur Abdomen: normal bowel sounds, soft, non tender, non distended Extremities: no cyanosis, no clubbing, no edema Laboratory Tests 01/10/20 12:03: POC Whole Blood Glucose 123H 01/10/20 17:28: POC Whole Blood Glucose 112H 01/10/20 22:39: POC Whole Blood Glucose 112H 01/11/20 05:15: White Blood Count 9.8, Red Blood Count 3.25L, Hemoglobin 9.8L, Hematocrit 29.1L, Mean Corpuscular Volume 90, Mean Corpuscular Hemoglobin 30.2, Mean Corpuscular Hemoglobin Concent 33.7, Red Cell Distribution Width 14.5, Platelet Count 512H, Mean Platelet Volume 6.3L, Neutrophils (%) (Auto) 54.6, Lymphocytes (%) (Auto) 20.8, Monocytes (%) (Auto) 8.9, Eosinophils (%) (Auto) 12.7H, Basophils (%) (Auto) 3.0H, Sodium Level 130L, Potassium Level 3.6, Chloride Level 93L, Carbon Dioxide Level 34H, Anion Gap 3L, Blood Urea Nitrogen 28H, Creatinine 1.1, Estimat Glomerular Filtration Rate 50.7, Glucose Level 121H, Calcium Level 7.9L, Phosphorus Level 4.7, Magnesium Level 2.0, Total Bilirubin 0.2, Aspartate Amino Transf (AST/SGOT) 17, Alanine Aminotransferase (ALT/SGPT) 20, Alkaline Phosphatase 140H, Total Protein 5.2L, Albumin 1.7L, Globulin 3.5, Albumin/Globulin Ratio 0.5L Current Medications Medications (Trade) Dose Ordered Sig/Margarette Route PRN Reason Start Time Stop Time Status Last Admin Dose Admin Acetaminophen/ Butalbital/ Caffeine (Fioricet) 1 tab Q6H PRN ORAL headache 12/29/19 20:30 01/18/20 20:29 12/30/19 09:04 Al Hydroxide/Mg Hydroxide (Mylanta II) 30 ml Q6H PRN ORAL GAS/DYSPEPSIA 01/05/20 08:45 02/04/20 08:44 Amikacin Protocol (Amikacin pharmacy to dose) 1 ea DAILY PRN MISC Per rx protocol 12/29/19 20:30 01/28/20 20:29 Amikacin Sulfate 750 mg/Sodium Chloride 113 ml @ 113 mls/hr Q36H IV 01/04/20 17:00 01/16/20 23:59 01/10/20 17:21 Chlorhexidine Gluconate (Patti-Hex 2%) 1 applic DAILY@2000 TOPIC 12/29/19 20:30 03/28/20 20:29 01/10/20 20:57 Clotrimazole (Lotrimin) 1 applic BID TOPIC 12/30/19 09:00 03/20/20 10:29 01/10/20 17:33 Dextrose 1,000 ml @ 0 mls/hr Q24H PRN IV PN interrupted or unavailable 12/29/19 20:30 01/28/20 20:29 Dextrose (Dextrose 50%) 25 ml Q30M PRN IV Hypoglycemia 12/29/19 20:30 03/17/20 19:59 Dextrose (Dextrose 50%) 50 ml Q30M PRN IV Hypoglycemia 12/29/19 20:30 03/17/20 19:59 Diphenhydramine HCl (Benadryl) 25 mg Q4H PRN IVP Itching 12/30/19 21:50 01/29/20 21:49 01/10/20 11:06 Diphenhydramine HCl (Benadryl) 25 mg Q6H PRN ORAL Itching 12/29/19 20:30 01/19/20 20:29 01/11/20 08:37 Fat Emulsion Intravenous 240 ml/Amino Acids/ Electrolytes/ Dextrose 1,920 ml @ 80 mls/hr Q24H IV 01/10/20 20:00 02/09/20 19:59 01/10/20 20:00 Furosemide (Lasix) 40 mg EVERY 12 HOURS IV 01/09/20 09:30 02/08/20 09:29 01/11/20 08:37 Hydromorphone HCl (Dilaudid) 1 mg Q3H PRN SUBQ Severe Breakthru Pain (>7) 01/09/20 09:25 01/16/20 09:24 01/11/20 07:00 Hydroxyzine HCl (Atarax) 50 mg Q6H PRN ORAL Itching 01/02/20 19:15 01/28/20 20:29 01/08/20 23:31 Insulin Aspart (NovoLOG) Q6HR SUBQ 12/30/19 00:00 03/18/20 00:00 Lansoprazole (Prevacid) 30 mg Q12HR ORAL 01/05/20 21:00 02/04/20 20:59 01/11/20 08:37 Metronidazole 100 ml @ 100 mls/hr Q8HR IVPB 01/06/20 22:00 01/12/20 21:59 01/11/20 05:00 Micafungin Sodium 100 mg/Sodium Chloride 110 ml @ 110 mls/hr Q24H IVPB 01/05/20 16:00 01/12/20 15:59 01/10/20 15:13 Ondansetron HCl (Zofran) 4 mg Q4H PRN IVP Nausea & Vomiting 12/30/19 21:40 01/29/20 21:39 01/10/20 13:19 Oxycodone/ Acetaminophen (Percocet 5-325) 1 tab Q4H PRN ORAL Moderate Pain (Pain Scale 4-6) 01/08/20 09:45 01/15/20 09:44 01/11/20 09:45 Phytonadione (Vitamin K) 10 mg ONCE A WEEK SUBQ 01/01/20 09:00 03/24/20 08:59 01/08/20 10:52 Pramipexole (Mirapex) 1 mg TWICE A DAY ORAL 12/30/19 09:00 01/16/20 17:59 01/11/20 08:37 Prochlorperazine (Compazine) 10 mg Q6H PRN IV Nausea & Vomiting 01/05/20 08:45 02/04/20 08:44 01/09/20 21:16 Quetiapine Fumarate (SEROqueL) 200 mg BEDTIME ORAL 12/29/19 21:00 01/31/20 20:59 01/10/20 22:14 Temazepam (RestoriL) 7.5 mg BEDTIME PRN ORAL Insomnia 01/08/20 22:30 01/15/20 22:29 01/10/20 21:04 Assessment/Plan Assessment/Plan IMPRESSION: 1. Status post laparotomy. 2. Ulcerative colitis. 3. Bilateral pleural effusions and atelectasis. 4. anemia 5. severe PCM DISCUSSION: Continue oxygen and pulmonary hygiene. monitor for congestion Pain control. DVT prophylaxis. GI prophylaxis. incentive missy monitor imaging for change and intervene monitor oxygen needs impression, plan, and exam edited and reviewed in detail care discussed with Jarek Mendoza MD Jan 11, 2020 09:51
--- NOTE | 2020-01-11 10:23 | General Progress Note ---
Progress Note Progress Note AVSS Not taking much full liquid diet. Abdomen not distended, upper portion midline incision with 3mm skin separation with continued ongoing drainage seropurulent? Also persistent anal drainage No abd tenderness. Ileostomy stable. flank and thing edema much improved Urine 9100 Ileostomy 150 CBC stable Na 130 K 3.6 albumin 1.7 Imp: Ileus with ongoing wound drainage from intra-abdominal source Severe malnutrition residual J pouch with oozing/bleeding Plan: Continue TPN Change Lasix to once daily Plan CT abd+pelvis with contrast in AM J pouch endoscopy Dr. Vaz on 01/12 f/u labs, continue antibiotics per ID Gio Mckeon MD Jan 11, 2020 10:23
[2020-01-11] MEDS ORDERED: Omnipaque-300 100ml vial INJ ONE (10:30)
[2020-01-11 12:00] VITALS: BP 106/83
[2020-01-11] MEDS: DiphenhydrAMINE 50mg/ml Inj IVP PRN (13:23)
[2020-01-11 16:00] VITALS: BP 115/62
--- NOTE | 2020-01-11 17:10 | NUR ---
NURSE NOTES: POOR APPETITE PATIENT REMAINS WITH POOR INTAKE. ENSURE ORDERED BID. STATES SHE LIKES IT BUT DRINKS IT VERY SLOWLY. HAD SOME NAUSEA AND SMALL EMESIS TODAY; 50 MLS. ADMINISTERED ZOFRAN AND ALTERNATING COMPAZINE IVP. PATIENT STATES HER APPETITE HAS NOT RETURNED YET. MD AWARE. WILL CONTINUE TO ENCOURAGE.
[2020-01-11] MEDS: Micafungin 100 MG in NS 110 ML IVPB SCH (17:31)
--- NOTE | 2020-01-11 18:18 | Infectious Diseases Prog Note ---
Assessment/Plan Assessment/Plan ASSESSMENT AND PLAN: 1. e.coli uti, morganella uti, left leg cellulitis, ? reaction/atypical drug rash to aztreonam, allergies - ampicillin, tetracycline s/p surgery on 12/29/19 - significant leukocytosis, ? sepsis vs post-surgical leukocytosis fungemia risk, TPN atelectasis vs pna (aspiration/hcap) intra-abdominal fluid culture, ? abscess - e.coli, s-amikacin elevated Ck noted - ? daptomycin - held - ck level less wound drainage per surgery note - ? wound infection - wound culture with e.coli and esbl proteus both sensitive to amikacin CT noted - incidental abscess per report - amikacin, flagyl, micafungin - day # 12 post-op, discontinue vancomycin since no mrsa growing from culture - f/u CT for persistent wound drainage - monitor labs, cr, cbc - leukocytosis resolved - management per Dr. Mckeon - d/w Dr. Mckeon - d/w RN and patient 2. skin care per protocol - ? fungal component, on clotrimazole cream 3. 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 4. History of Narcisa ileostomy. 5. History of ulcerative colitis. 6. History of multiple abdominal surgeries. 7. History of cholecystectomy. 8. History of peristomal hernia and mesh. 9. History of colectomy. 10. Continue treatment per Dr. Mckeon and consultants. 11. Allergies to ampicillin, tetracycline. She gets hives with ampicillin. 12. Social history is negative. 13. Family history is noncontributory. 14. MAR is noted. 15. Case was discussed with RN. 16. Case was discussed with Dr. Mckeon. 17. Case was discussed with the patient. Subjective Constitutional: Denies: fever HEENT: Denies: congestion Respiratory: Denies: shortness of breath Cardiovascular: Denies: chest pain Gastrointestinal/Abdominal: Denies: nausea, vomiting, diarrhea Genitourinary: Reports: other - no zheng Neurologic: Denies: headache Psychiatric: Denies: depression Skin: Denies: rash Hematologic: Denies: bleeding Musculoskeletal: Denies: pain Allergies: Coded Allergies: AMPICILLIN (Verified Allergy, Unknown, 12/17/19) TETRACYCLINE (Verified Allergy, Unknown, 12/17/19) Objective Last 24 Hour Vital Signs Date Time Temp Pulse Resp B/P (MAP) Pulse Ox O2 Delivery O2 Flow Rate FiO2 01/11/20 16:00 98.2 86 18 115/62 (79) 98 01/11/20 13:05 98.5 01/11/20 12:00 98.2 91 16 106/83 (91) 94 01/11/20 10:15 98.5 01/11/20 08:00 98.5 89 19 105/65 (78) 93 01/11/20 07:30 98.6 01/11/20 07:08 95 Room Air 21 01/11/20 04:00 98.6 100 18 97/59 (72) 93 01/11/20 03:28 98.2 01/11/20 00:00 98.2 90 18 119/68 (85) 94 01/10/20 23:02 98.6 01/10/20 21:00 Room Air 01/10/20 20:59 96 Room Air 21 01/10/20 20:00 98.6 92 16 106/64 (78) 95 01/10/20 18:55 98.7 Height (Feet): 5 Height (Inches): 1.00 Weight (Pounds): 152 General Appearance: no acute distress HEENT: normocephalic, atraumatic, anicteric, mucous membranes moist Respiratory/Chest: lungs clear, normal breath sounds, no respiratory distress, no accessory muscle use Cardiovascular: normal rate, regular rhythm, no gallop/murmur, no JVD Abdomen: normal bowel sounds, soft, non tender, no organomegaly, non distended Genitourinary: other - no zheng Extremities: no cyanosis Skin: no rash Neurologic/Psychiatric: 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 No focal airspace consolidation. No effusions. Normal heart size Impression: Acuity indeterminate mild interstitial disease. Correlate with clinical findings. No focal infiltrates CT abdomen and pelvis: Impression: Postsurgical changes, as described, including right lower quadrant simple ileostomy, prior total colectomy, and J-pouch. There is abundant anterior pelvic apparent defunctionalized small bowel which appears to be in continuity with and ileoanal J-pouch remnant. Most likely, this just represents old isolated small bowel, but the possibility of any of this representing either tumor or abscess is not completely excludable. Small parastomal hernia within the right lower quadrant ileostomy. This appears to be nonobstructive. Equivocal mild wall thickening of left upper quadrant jejunal loops. Enteritis is possible and correlation with clinical findings is recommended Age-indeterminate L2 vertebral body compression fracture deformity. Suspect old. Consider MRI if clinically relevant Prior cholecystectomy Inferior vena cava filter Findings discussed by phone Chest x-ray - 12/29/19 - FINDINGS: Lungs: Retrocardiac atelectasis versus infiltrate. No consolidation or interstitial edema. Pleural space: Trace left pleural effusion. Heart: Unremarkable. No cardiomegaly. Bones/joints: Unremarkable. Tubes, lines and devices: Endotracheal tube terminates 3 cm above the kyung. Left upper extremity PICC line terminates within the SVC. IMPRESSION: 1. Endotracheal tube terminates 3 cm above the kyung. 2. Left upper extremity PICC line terminates within the SVC. 3. Retrocardiac atelectasis versus infiltrate. 4. Trace left pleural effusion. Chest x-ray - 12/31/19 - Procedure: XRAY Chest 1v Procedure: XRAY Chest 1v Reason for study: Shortness of breath. Comparison films: 12/29/2019. FINDINGS: Endotracheal tube has been removed. Left PICC line remains in place. There is slight worsening of congestion and edema. Cardiac and mediastinal silhouette are within normal limits. CP angles are sharp. The bony thorax appear unremarkable. IMPRESSION: Slight worsening of congestion and edema. Chest x-ray - 01/02/20 - Procedure: XRAY Chest 1v Indication: Reason For Exam: SOB Technique: Single AP view of the chest. Comparison: Chest radiograph dated 12/31/2019 Findings: The cardiomediastinal silhouette is unchanged in appearance. No new airspace consolidation. Stable pulmonary vascular congestion. Demonstration of streaky retrocardiac airspace opacity. No pneumothorax or pleural effusion. Unchanged left PICC. IMPRESSION: No significant change from prior examination. CT abdomen and pelvis- 01/06/20 - Impression: Postsurgical changes, as described. Small amount of fluid and gas is seen along the incision no definite incisional. Incidental abscess demonstrated. Slow traversal of contrast small bowel but no definite evidence of small bowel obstruction Interim Zheng catheter placement Other findings as noted, including stable old healed fracture deformity left pubic bone, inferior vena cava filter, prior cholecystectomy, L2 vertebral body compression fracture Microbiology Date/Time Source Procedure Growth Status 01/05/20 00:48 Stool Clostridium difficile Toxin Assay - Final Complete 01/03/20 16:00 Other Gram Stain - Final Complete 01/03/20 16:00 Wound Culture - Final Escherichia Coli Proteus Mirabilis Esbl Complete 01/01/20 16:00 Blood Blood Culture - Final NO GROWTH AFTER 5 DAYS Complete 12/29/19 14:00 Abdominal Fluid Gram Stain - Final Complete 12/29/19 14:00 Aerobic Culture - Final Escherichia Coli Complete 12/29/19 14:00 Abdominal Fluid Anaerobic Culture - Final NO ANAEROBES ISOLATED Complete 12/27/19 11:13 Nasopharynx SARS-CoV-2 RdRp Gene Assay - Final Complete 12/22/19 19:30 Urine,Clean Catch Urine Culture - Final Morganella Morg Spp Morganii Complete Laboratory Tests Test 01/10/20 22:39 01/11/20 05:15 01/11/20 16:00 01/11/20 16:41 POC Whole Blood Glucose 112 MG/DL (74-106) H 109 MG/DL (74-106) H White Blood Count 9.8 K/UL (4.8-10.8) Red Blood Count 3.25 M/UL (4.20-5.40) L Hemoglobin 9.8 G/DL (12.0-16.0) L Hematocrit 29.1 % (37.0-47.0) L Mean Corpuscular Volume 90 FL (80-99) Mean Corpuscular Hemoglobin 30.2 PG (27.0-31.0) Mean Corpuscular Hemoglobin Concent 33.7 G/DL (32.0-36.0) Red Cell Distribution Width 14.5 % (11.6-14.8) Platelet Count 512 K/UL (150-450) H Mean Platelet Volume 6.3 FL (6.5-10.1) L Neutrophils (%) (Auto) 54.6 % (45.0-75.0) Lymphocytes (%) (Auto) 20.8 % (20.0-45.0) Monocytes (%) (Auto) 8.9 % (1.0-10.0) Eosinophils (%) (Auto) 12.7 % (0.0-3.0) H Basophils (%) (Auto) 3.0 % (0.0-2.0) H Sodium Level 130 MMOL/L (136-145) L Potassium Level 3.6 MMOL/L (3.5-5.1) Chloride Level 93 MMOL/L (98-107) L Carbon Dioxide Level 34 MMOL/L (21-32) H Anion Gap 3 mmol/L (5-15) L Blood Urea Nitrogen 28 mg/dL (7-18) H Creatinine 1.1 MG/DL (0.55-1.30) Estimat Glomerular Filtration Rate 50.7 mL/min (>60) Glucose Level 121 MG/DL (74-106) H Calcium Level 7.9 MG/DL (8.5-10.1) L Phosphorus Level 4.7 MG/DL (2.5-4.9) Magnesium Level 2.0 MG/DL (1.8-2.4) Total Bilirubin 0.2 MG/DL (0.2-1.0) Aspartate Amino Transf (AST/SGOT) 17 U/L (15-37) Alanine Aminotransferase (ALT/SGPT) 20 U/L (12-78) Alkaline Phosphatase 140 U/L (46-116) H Total Protein 5.2 G/DL (6.4-8.2) L Albumin 1.7 G/DL (3.4-5.0) L Globulin 3.5 g/dL Albumin/Globulin Ratio 0.5 (1.0-2.7) L Amikacin Level Trough Pending Current Medications Medications (Trade) Dose Ordered Sig/Margarette Route PRN Reason Start Time Stop Time Status Last Admin Dose Admin Acetaminophen/ Butalbital/ Caffeine (Fioricet) 1 tab Q6H PRN ORAL headache 12/29/19 20:30 01/18/20 20:29 12/30/19 09:04 Al Hydroxide/Mg Hydroxide (Mylanta II) 30 ml Q6H PRN ORAL GAS/DYSPEPSIA 01/05/20 08:45 02/04/20 08:44 Amikacin Protocol (Amikacin pharmacy to dose) 1 ea DAILY PRN MISC Per rx protocol 12/29/19 20:30 01/28/20 20:29 Amikacin Sulfate 750 mg/Sodium Chloride 113 ml @ 113 mls/hr Q36H IV 01/04/20 17:00 01/16/20 23:59 01/10/20 17:21 Chlorhexidine Gluconate (Patti-Hex 2%) 1 applic DAILY@2000 TOPIC 12/29/19 20:30 03/28/20 20:29 01/10/20 20:57 Clotrimazole (Lotrimin) 1 applic BID TOPIC 12/30/19 09:00 03/20/20 10:29 01/10/20 17:33 Dextrose 1,000 ml @ 0 mls/hr Q24H PRN IV PN interrupted or unavailable 12/29/19 20:30 01/28/20 20:29 Dextrose (Dextrose 50%) 25 ml Q30M PRN IV Hypoglycemia 12/29/19 20:30 03/17/20 19:59 Dextrose (Dextrose 50%) 50 ml Q30M PRN IV Hypoglycemia 12/29/19 20:30 03/17/20 19:59 Diphenhydramine HCl (Benadryl) 25 mg Q4H PRN IVP Itching 12/30/19 21:50 01/29/20 21:49 01/11/20 13:23 Diphenhydramine HCl (Benadryl) 25 mg Q6H PRN ORAL Itching 12/29/19 20:30 01/19/20 20:29 01/11/20 08:37 Fat Emulsion Intravenous 240 ml/Amino Acids/ Electrolytes/ Dextrose 1,920 ml @ 80 mls/hr Q24H IV 01/10/20 20:00 02/09/20 19:59 01/10/20 20:00 Furosemide (Lasix) 40 mg DAILY IV 01/12/20 09:00 02/08/20 09:29 Hydromorphone HCl (Dilaudid) 1 mg Q3H PRN SUBQ Severe Breakthru Pain (>7) 01/09/20 09:25 01/16/20 09:24 01/11/20 17:32 Hydroxyzine HCl (Atarax) 50 mg Q6H PRN ORAL Itching 01/02/20 19:15 01/28/20 20:29 01/08/20 23:31 Insulin Aspart (NovoLOG) Q6HR SUBQ 12/30/19 00:00 03/18/20 00:00 Lansoprazole (Prevacid) 30 mg Q12HR ORAL 01/05/20 21:00 02/04/20 20:59 01/11/20 08:37 Metronidazole 100 ml @ 100 mls/hr Q8HR IVPB 01/11/20 22:00 01/17/20 21:59 Micafungin Sodium 100 mg/Sodium Chloride 110 ml @ 110 mls/hr Q24H IVPB 01/12/20 16:00 01/19/20 15:59 UNV Ondansetron HCl (Zofran) 4 mg Q4H PRN IVP Nausea & Vomiting 12/30/19 21:40 01/29/20 21:39 01/11/20 12:35 Oxycodone/ Acetaminophen (Percocet 5-325) 1 tab Q4H PRN ORAL Moderate Pain (Pain Scale 4-6) 01/08/20 09:45 01/15/20 09:44 01/11/20 09:45 Phytonadione (Vitamin K) 10 mg ONCE A WEEK SUBQ 01/01/20 09:00 03/24/20 08:59 01/08/20 10:52 Pramipexole (Mirapex) 1 mg TWICE A DAY ORAL 12/30/19 09:00 01/16/20 17:59 01/11/20 08:37 Prochlorperazine (Compazine) 10 mg Q6H PRN IV Nausea & Vomiting 01/05/20 08:45 02/04/20 08:44 01/11/20 16:44 Quetiapine Fumarate (SEROqueL) 200 mg BEDTIME ORAL 12/29/19 21:00 01/31/20 20:59 01/10/20 22:14 Temazepam (RestoriL) 7.5 mg BEDTIME PRN ORAL Insomnia 01/08/20 22:30 01/15/20 22:29 01/10/20 21:04 Kevan Burgess MD Jan 11, 2020 18:18
--- NOTE | 2020-01-11 19:33 | NUR ---
NURSE HAND-OFF: Important Events on Shift:N/A Patient Status: STABLE Diet: FULL LIQUID Pending Orders: N/A Pending Results/Labs:N/A Pending MD notification:N/A Latest Vital Signs: Temperature 98.2 , Pulse 86 , B/P 115 /62 , Respiratory Rate 18 , O2 SAT 98 , Room Air, O2 Flow Rate 2.0 . Vital Sign Comment: STABLE Latest Jimenez Fall Score: 50 Fall Risk: High Risk Safety Measures: Call light Within Reach, Bed Alarm Zone 1, Side Rails Side Rails x2, Bed position Low and Locked. Fall Precautions: Yellow Socks Yellow Gown Door Sign Patient Fall Education Report given to BRAXTON GONZÁLES RN.
--- NOTE | 2020-01-11 19:50 | NUR ---
NURSE NOTES: Received report from Cecilia KAYE. Patient in stable condition.
[2020-01-11] MEDS: Dyna-Hex 2% Top Sol 2oz TOPIC SCH (19:59)
[2020-01-11 20:00] VITALS: BP 107/63
[2020-01-11] MEDS: Fat Emulsion Iv 20% 240 ML in Tpn 1,680 ML IV SCH (20:01)
[2020-01-11] MEDS ORDERED: Tubing IV Secondary IV ONE (20:45)
[2020-01-11] MEDS: QUEtiapine 200mg tab ORAL SCH (22:05)
[2020-01-12] VITALS: BP 107/64
[2020-01-12 04:00] VITALS: BP 104/60
[2020-01-12] MEDS: Amikacin 750 MG in NS 110 ML IV SCH (04:08)
[2020-01-12] MEDS: HYDROmorphone 1mg/ml Carpuject SUBQ PRN ×4 (04:59→18:42)
[2020-01-12] MEDS: NovoLOG Insulin Flexpen SUBQ SCH ×3 (05:35→18:00)
[2020-01-12 06:01] LABS: BASOPHILS % (AUTO) 3.1 % (0.0-2.0); EOSINOPHILS % (AUTO) 10.8 % (0.0-3.0); HEMATOCRIT 28.7 % (37.0-47.0); HEMOGLOBIN 9.7 G/DL (12.0-16.0); LYMPHOCYTES % (AUTO) 16.9 % (20.0-45.0); MEAN CORPUSCULAR VOLUME 89 FL (80-99); MONOCYTES % (AUTO) 13.4 % (1.0-10.0); NEUTROPHILS % (AUTO) 55.8 % (45.0-75.0); PLATELET COUNT 486 K/UL (150-450); RED BLOOD COUNT 3.22 M/UL (4.20-5.40); RED CELL DISTRIBUTION WIDTH 14.3 % (11.6-14.8); WHITE BLOOD COUNT 9.7 K/UL (4.8-10.8)
--- NOTE | 2020-01-12 06:22 | NUR ---
NURSE HAND-OFF: Important Events on Shift: Pain management, frequent tejas - care. No nausea and vomiting noted during my shift. Patient slept well throughout the whole shift. urine output: 1600 mL Ileo 200mL Patient Status: stable Diet: NPO now for CT pelvis w contrast today Pending Orders: [] Pending Results/Labs:[] Pending MD notification:[] Latest Vital Signs: Temperature 98.2 , Pulse 90 , B/P 104 /60 , Respiratory Rate 18 , O2 SAT 95 , Room Air, O2 Flow Rate 2.0 . Vital Sign Comment: [] Latest Jimenez Fall Score: 60 Fall Risk: High Risk Safety Measures: Call light Within Reach, Bed Alarm Zone 1, Side Rails Side Rails x2, Bed position Low and Locked. Fall Precautions: Yellow Socks Patient Fall Education Report given to [].
[2020-01-12 06:24] LABS: ALBUMIN 1.8 G/DL (3.4-5.0); ALBUMIN/GLOBULIN RATIO 0.4 (1.0-2.7); BILIRUBIN,TOTAL 0.2 MG/DL (0.2-1.0); CREATININE 1.1 MG/DL (0.55-1.30); POTASSIUM 3.9 MMOL/L (3.5-5.1)
--- NOTE | 2020-01-12 07:15 | NUR ---
NURSE NOTES: Report given to Triston KAYE
--- NOTE | 2020-01-12 07:16 | NUR ---
NURSE NOTES: Handoff received from Wayne KAYE. Patient is asleep, no signs of distress noted, breathing is even and unlabored on room air. CRISTÓBAL PICC is running TPN as ordered. Caban catheter is patent and draining to gravity. Bed is low and locked, side rails up x2, call light is within reach.
[2020-01-12 08:00] VITALS: BP 106/64
[2020-01-12] MEDS: Pramipexole 0.5mg tab ORAL SCH ×2 (08:12→18:09)
--- NOTE | 2020-01-12 09:12 | General Progress Note ---
Progress Note Progress Note AVSS Drinking 3000cc water during the day - emesis after ensure Edema of flanks, thighs and buttocks has resolved Abdomen soft, flat, drainage from upper incision persists but less Ileostomy stable Urine 5600 Ileostomy 450 WBC 9700 Hgb 9.7 Platelets down 486,000 Na 130 K 3.9 albumin 1.8 Imp: Persistent incision drainage from abdomen Plan: CT abd+pelvis with po+IV contrast continue TPN, full liquid diet as tolerated Jpouch endoscopy tomorrow with Gio Smith MD Jan 12, 2020 09:12
--- NOTE | 2020-01-12 10:41 | NUR ---
RD ASSESSMENT & RECOMMENDATIONS SEE CARE ACTIVITY FOR COMPLETE ASSESSMENT DAILY ESTIMATED NEEDS: Needs based on Surgery/ 59kg 25-30 kcals/kg 2082-2737 total kcals 1-2 g protein/kg 59-118 g total protein 25-35 mL/kg 4521-2478 total fluid mLs NUTRITION DIAGNOSIS: Altered GI function R/T h/o UC, total colectomy, admitted w/ failed ileoanal J pouch with abdominal pain and J pouch bleeding as evidenced by s/p resection defunctionalized small bowel and ileoanal J pouch, revision of ileostomy, diet advanced to full liquid, cont on TPN. CURRENT DIET: Now Full Liquid PO DIET RECOMMENDATIONS: Full liquid as per MD + Ensure Clear (240kcal/8g prot each) BID (pt requesting Ensure Clear instead of Ensure Enlive) PARENTERAL NUTRITION RECOMMENDATIONS: D/AA Rate: 70 IL Rate: 10 Total Rate: 80 Volume: 1920 % Dextrose: 16 % AA: 5.0 Energy (kcals/kg): 1730 Protein (g/kg protein): 84 Nonprotein KCALS: 1394 GIR (mg CHO/kg/min): 3.17 % Fat KCALS: 27.7 NPC: N Ratio: 103.7:1 TPN Comment: - D16% AA 5.0% @ 70ml/hr + IL 20% @ 10ml/hr -> all 3:1, total of 80ml/hr - Maintain per MD - TPN @ goal provides 100% est kcal/prot needs 29kcal/1.42g prot per kg ADDITIONAL RECOMMENDATIONS: * Calibrated bedscale wt or standing wt as able for accurate CBW * Monitor lytes, replete as needed * Monitor LFTs, BGs closely, need for TPN formulary change * Ensure Clear BID added to tray (240kcal/8g prot per bottle) -> pt requesting Ensure Clear instead of Ensure Enlive at this time
--- NOTE | 2020-01-12 11:01 | Pulmonology Progress Note ---
Subjective Constitutional: Denies: fever HEENT: Repors: no symptoms Respiratory: Reports: no symptoms Cardiovascular: Reports: no symptoms Gastrointestinal/Abdominal: Denies: nausea, vomiting, diarrhea Genitourinary: Reports: no symptoms Psychiatric: Denies: depression Skin: Denies: rash Musculoskeletal: Denies: pain Allergies: Coded Allergies: AMPICILLIN (Verified Allergy, Unknown, 12/17/19) TETRACYCLINE (Verified Allergy, Unknown, 12/17/19) Objective Last 24 Hour Vital Signs Date Time Temp Pulse Resp B/P (MAP) Pulse Ox O2 Delivery O2 Flow Rate FiO2 01/12/20 08:00 99.1 84 20 106/64 (78) 96 01/12/20 05:29 98.2 01/12/20 04:00 98.5 90 18 104/60 (75) 95 01/12/20 00:00 98.2 87 18 107/64 (78) 96 01/11/20 21:00 Room Air 01/11/20 20:00 98.5 81 18 107/63 (78) 94 01/11/20 19:33 96 Room Air 21 01/11/20 18:02 98.2 01/11/20 16:00 98.2 86 18 115/62 (79) 98 01/11/20 13:05 98.5 01/11/20 12:00 98.2 91 16 106/83 (91) 94 Intake and Output 01/11/20 01/12/20 19:00 07:00 Intake Total 3860 ml 1780 ml Output Total 4300 ml 1800 ml Balance -440 ml -20 ml Intake Oral 2800 ml 800 ml IV Total 1060 ml 980 ml Output Urine Total 4000 ml 1600 ml Emesis 50 ml Other 250 ml 200 ml General Appearance: no acute distress Respiratory: chest wall non-tender, normal breath sounds, no respiratory distress, no accessory muscle use Cardiovascular: normal peripheral pulses, normal rate, regular rhythm, no gallop/murmur Abdomen: normal bowel sounds, soft, non tender, non distended Extremities: no cyanosis, no clubbing, no edema Laboratory Tests 01/11/20 16:00: Amikacin Level Trough 7.0 01/11/20 16:41: POC Whole Blood Glucose 109H 01/11/20 22:20: POC Whole Blood Glucose 114H 01/12/20 05:00: White Blood Count 9.7, Red Blood Count 3.22L, Hemoglobin 9.7L, Hematocrit 28.7L, Mean Corpuscular Volume 89, Mean Corpuscular Hemoglobin 30.1, Mean Corpuscular Hemoglobin Concent 33.9, Red Cell Distribution Width 14.3, Platelet Count 486H, Mean Platelet Volume 6.1L, Neutrophils (%) (Auto) 55.8, Lymphocytes (%) (Auto) 16.9L, Monocytes (%) (Auto) 13.4H, Eosinophils (%) (Auto) 10.8H, Basophils (%) ( Auto) 3.1H, Sodium Level 130L, Potassium Level 3.9, Chloride Level 93L, Carbon Dioxide Level 30, Anion Gap 7, Blood Urea Nitrogen 29H, Creatinine 1.1, Estimat Glomerular Filtration Rate 50.7, Glucose Level 116H, Calcium Level 8.0L, Total Bilirubin 0.2, Aspartate Amino Transf (AST/SGOT) 18, Alanine Aminotransferase (ALT/SGPT) 16, Alkaline Phosphatase 145H, Total Protein 5.8L, Albumin 1.8L, Globulin 4.0, Albumin/Globulin Ratio 0.4L 01/12/20 05:06: POC Whole Blood Glucose 104 Current Medications Medications (Trade) Dose Ordered Sig/Margarette Route PRN Reason Start Time Stop Time Status Last Admin Dose Admin Acetaminophen/ Butalbital/ Caffeine (Fioricet) 1 tab Q6H PRN ORAL headache 12/29/19 20:30 01/18/20 20:29 12/30/19 09:04 Al Hydroxide/Mg Hydroxide (Mylanta II) 30 ml Q6H PRN ORAL GAS/DYSPEPSIA 01/05/20 08:45 02/04/20 08:44 Amikacin Protocol (Amikacin pharmacy to dose) 1 ea DAILY PRN MISC Per rx protocol 12/29/19 20:30 01/28/20 20:29 Amikacin Sulfate 750 mg/Sodium Chloride 113 ml @ 113 mls/hr Q36H IV 01/04/20 17:00 01/16/20 23:59 01/12/20 04:08 Chlorhexidine Gluconate (Patti-Hex 2%) 1 applic DAILY@2000 TOPIC 12/29/19 20:30 03/28/20 20:29 01/11/20 19:59 Clotrimazole (Lotrimin) 1 applic BID TOPIC 12/30/19 09:00 03/20/20 10:29 01/10/20 17:33 Dextrose 1,000 ml @ 0 mls/hr Q24H PRN IV PN interrupted or unavailable 12/29/19 20:30 01/28/20 20:29 Dextrose (Dextrose 50%) 25 ml Q30M PRN IV Hypoglycemia 12/29/19 20:30 03/17/20 19:59 Dextrose (Dextrose 50%) 50 ml Q30M PRN IV Hypoglycemia 12/29/19 20:30 03/17/20 19:59 Diphenhydramine HCl (Benadryl) 25 mg Q4H PRN IVP Itching 12/30/19 21:50 01/29/20 21:49 01/11/20 13:23 Diphenhydramine HCl (Benadryl) 25 mg Q6H PRN ORAL Itching 12/29/19 20:30 01/19/20 20:29 01/11/20 08:37 Fat Emulsion Intravenous 240 ml/Amino Acids/ Electrolytes/ Dextrose 1,920 ml @ 80 mls/hr Q24H IV 01/10/20 20:00 02/09/20 19:59 01/11/20 20:01 Hydromorphone HCl (Dilaudid) 1 mg Q3H PRN SUBQ Severe Breakthru Pain (>7) 01/09/20 09:25 01/16/20 09:24 01/12/20 10:39 Hydroxyzine HCl (Atarax) 50 mg Q6H PRN ORAL Itching 01/02/20 19:15 01/28/20 20:29 01/08/20 23:31 Insulin Aspart (NovoLOG) Q6HR SUBQ 12/30/19 00:00 03/18/20 00:00 Lansoprazole (Prevacid) 30 mg Q12HR ORAL 01/05/20 21:00 02/04/20 20:59 01/12/20 08:12 Metronidazole 100 ml @ 100 mls/hr Q8HR IVPB 01/11/20 22:00 01/17/20 21:59 01/12/20 05:00 Micafungin Sodium 100 mg/Sodium Chloride 110 ml @ 110 mls/hr Q24H IVPB 01/12/20 16:00 01/19/20 15:59 Ondansetron HCl (Zofran) 4 mg Q4H PRN IVP Nausea & Vomiting 12/30/19 21:40 01/29/20 21:39 01/12/20 08:12 Oxycodone/ Acetaminophen (Percocet 5-325) 1 tab Q4H PRN ORAL Moderate Pain (Pain Scale 4-6) 01/08/20 09:45 01/15/20 09:44 01/11/20 09:45 Phytonadione (Vitamin K) 10 mg ONCE A WEEK SUBQ 01/01/20 09:00 03/24/20 08:59 01/08/20 10:52 Pramipexole (Mirapex) 1 mg TWICE A DAY ORAL 12/30/19 09:00 01/16/20 17:59 01/12/20 08:12 Prochlorperazine (Compazine) 10 mg Q6H PRN IV Nausea & Vomiting 01/05/20 08:45 02/04/20 08:44 01/11/20 16:44 Quetiapine Fumarate (SEROqueL) 200 mg BEDTIME ORAL 12/29/19 21:00 01/31/20 20:59 01/11/20 22:05 Temazepam (RestoriL) 7.5 mg BEDTIME PRN ORAL Insomnia 01/08/20 22:30 01/15/20 22:29 01/11/20 20:11 Assessment/Plan Assessment/Plan Pulmonary Progress Note Subjective Constitutional: Denies: fever HEENT: Repors: no symptoms Respiratory: Reports: no symptoms Cardiovascular: Reports: no symptoms Gastrointestinal/Abdominal: Denies: nausea, vomiting Genitourinary: Reports: no symptoms Psychiatric: Reports: other - NA Skin: Denies: rash Musculoskeletal: Denies: pain Allergies: Coded Allergies: AMPICILLIN (Verified Allergy, Unknown, 12/17/19) TETRACYCLINE (Verified Allergy, Unknown, 12/17/19) Subjective comfortable no distress no sob Objective Vital Signs noted General Appearance: no acute distress Respiratory: chest wall non-tender, normal breath sounds, no respiratory distress, no accessory muscle use Cardiovascular: normal peripheral pulses, normal rate, regular rhythm, no gallop/murmur Abdomen: normal bowel sounds, soft, non tender, non distended Extremities: no cyanosis, no clubbing, no edema Laboratory Tests noted Assessment/Plan IMPRESSION: 1. Status post laparotomy. 2. Ulcerative colitis. 3. Bilateral pleural effusions and atelectasis. 4. anemia 5. severe PCM 6. Previous IVC filter DISCUSSION: Continue oxygen and pulmonary hygiene. monitor for congestion Pain control. DVT prophylaxis. GI prophylaxis. incentive spirometer monitor imaging for change and intervene monitor oxygen needs impression, plan, and exam edited and reviewed in detail care discussed with Branden Luz MD Jan 12, 2020 11:01
[2020-01-12 12:00] VITALS: BP 119/68
--- NOTE | 2020-01-12 12:12 | Diagnostic Imaging Report ---
Clinical Indication: Abdominal pain, persistent copious midline incision and drainage Technique: Patient ingested oral contrast IV administration nonionic contrast. Venous phase spiral acquisition obtained through the abdomen and pelvis. Multiplanar reconstructions were generated. Total dose length product 295 mGycm. CTDIvol(s) 6 mGy. Dose reduction achieved using automated exposure control Comparison: 01/06/2020 Findings: Again demonstrated is a midline incision with a small amount of gas along the incision and a small amount of fluid deep to the dangelo in the umbilical region. A few gas bubbles are seen just superficial to the anterior abdominal wall musculature. No large organized fluid collection is demonstrated. There is questionably a very small fluid collection deep to the rectus abdominis muscle just lateral to midline below the umbilicus and below the level of the stoma. This real measures approximately 2 x 1.3 cm. This is contiguous with a small bowel loop but no contrast extravasation into this area is demonstrated. Again demonstrated is a right lower quadrant simple ileostomy. Contrast is seen all the way through the small bowel into the ileostomy and into the bag. A few small bowel loops in the left upper quadrant are mildly distended. The distal esophagus, stomach, duodenum are unremarkable. A rectosigmoid stump is again demonstrated. The liver is unremarkable. The gallbladder has been removed. No biliary ductal dilatation. The pancreas is unremarkable. The spleen is markedly atrophic. The adrenals are unremarkable. The kidneys are unremarkable. Again demonstrated is an inferior vena cava filter. No retroperitoneal or mesenteric mass or adenopathy. No pelvic mass or adenopathy. Somewhat irregular appearance of the uterus and adnexal structures is again demonstrated. The bladder is empty, contains a Caban catheter. Graft there are small bilateral pleural effusions. There are compressive atelectatic changes of both posterior lower lobes. The bones demonstrate degenerative spondylosis changes and a compression fracture deformity of the L2 vertebral body, also previously described. Impression: Postsurgical changes, as described Small amount of fluid just deep to the right side of the inferior rectus abdominis muscle in the anterior pelvis, without definite contrast extravasation to suggest enteric fistula. Significance uncertain. Small amount of gas and fluid within the incision again demonstrated. No evidence of small bowel obstruction or graft bilateral small pleural effusions and posterior compressive pulmonary parenchymal atelectasis Other findings as noted, including atrophic spleen, prior cholecystectomy, inferior vena cava filter, Caban catheter, L2 vertebral body compression fracture deformity, degenerative spondylosis The CT scanner at [facility] is accredited by the [employer] and the scans are performed using protocols designed to limit radiation exposure to as low as reasonably achievable to attain images of sufficient resolution adequate for diagnostic evaluation.
--- NOTE | 2020-01-12 12:59 | Infectious Diseases Prog Note ---
Assessment/Plan Assessment/Plan ASSESSMENT AND PLAN: 1. e.coli uti, morganella uti, left leg cellulitis, ? reaction/atypical drug rash to aztreonam, allergies - ampicillin, tetracycline s/p surgery on 12/29/19 - significant leukocytosis, ? sepsis vs post-surgical leukocytosis fungemia risk, TPN atelectasis vs pna (aspiration/hcap) intra-abdominal fluid culture, ? abscess - e.coli, s-amikacin elevated Ck noted - ? daptomycin - held - ck level less wound drainage per surgery note - ? wound infection - wound culture with e.coli and esbl proteus both sensitive to amikacin CT noted - incidental abscess per report - amikacin, flagyl, micafungin - day # 13 post-op, discontinue vancomycin since no mrsa growing from culture - CT for persistent wound drainage - report noted - monitor labs, cr, cbc - leukocytosis resolved - management per Dr. Mckeon - d/w Dr. Mckeon - d/w RN and patient 2. skin care per protocol - ? fungal component, on clotrimazole cream 3. 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 4. History of Narcisa ileostomy. 5. History of ulcerative colitis. 6. History of multiple abdominal surgeries. 7. History of cholecystectomy. 8. History of peristomal hernia and mesh. 9. History of colectomy. 10. Continue treatment per Dr. Mckeon and consultants. 11. Allergies to ampicillin, tetracycline. She gets hives with ampicillin. 12. Social history is negative. 13. Family history is noncontributory. 14. MAR is noted. 15. Case was discussed with RN. 16. Case was discussed with Dr. Mckeon. 17. Case was discussed with the patient. Subjective Constitutional: Denies: fever HEENT: Denies: congestion Respiratory: Denies: shortness of breath Cardiovascular: Denies: chest pain Gastrointestinal/Abdominal: Denies: nausea, vomiting Allergies: Coded Allergies: AMPICILLIN (Verified Allergy, Unknown, 12/17/19) TETRACYCLINE (Verified Allergy, Unknown, 12/17/19) Objective Last 24 Hour Vital Signs Date Time Temp Pulse Resp B/P (MAP) Pulse Ox O2 Delivery O2 Flow Rate FiO2 01/12/20 11:09 99.1 9/28/20 08:00 99.1 84 20 106/64 (78) 96 01/12/20 05:29 98.2 01/12/20 04:00 98.5 90 18 104/60 (75) 95 01/12/20 00:00 98.2 87 18 107/64 (78) 96 01/11/20 21:00 Room Air 01/11/20 20:00 98.5 81 18 107/63 (78) 94 01/11/20 19:33 96 Room Air 21 01/11/20 18:02 98.2 01/11/20 16:00 98.2 86 18 115/62 (79) 98 01/11/20 13:05 98.5 Height (Feet): 5 Height (Inches): 1.00 Weight (Pounds): 152 General Appearance: no acute distress HEENT: normocephalic, atraumatic, anicteric Respiratory/Chest: no respiratory distress, no accessory muscle use Cardiovascular: normal rate, regular rhythm Abdomen: normal bowel sounds, soft, non tender Chest x-ray - Procedure: XRAY Chest 1v Indication: Cough Technique: One view of the chest Comparison: none Findings: There is diffuse mild bilateral interstitial disease and central bronchial wall thickening. No focal airspace consolidation. No effusions. Normal heart size Impression: Acuity indeterminate mild interstitial disease. Correlate with clinical findings. No focal infiltrates CT abdomen and pelvis: Impression: Postsurgical changes, as described, including right lower quadrant simple ileostomy, prior total colectomy, and J-pouch. There is abundant anterior pelvic apparent defunctionalized small bowel which appears to be in continuity with and ileoanal J-pouch remnant. Most likely, this just represents old isolated small bowel, but the possibility of any of this representing either tumor or abscess is not completely excludable. Small parastomal hernia within the right lower quadrant ileostomy. This appears to be nonobstructive. Equivocal mild wall thickening of left upper quadrant jejunal loops. Enteritis is possible and correlation with clinical findings is recommended Age-indeterminate L2 vertebral body compression fracture deformity. Suspect old. Consider MRI if clinically relevant Prior cholecystectomy Inferior vena cava filter Findings discussed by phone Chest x-ray - 12/29/19 - FINDINGS: Lungs: Retrocardiac atelectasis versus infiltrate. No consolidation or interstitial edema. Pleural space: Trace left pleural effusion. Heart: Unremarkable. No cardiomegaly. Bones/joints: Unremarkable. Tubes, lines and devices: Endotracheal tube terminates 3 cm above the kyung. Left upper extremity PICC line terminates within the SVC. IMPRESSION: 1. Endotracheal tube terminates 3 cm above the kyung. 2. Left upper extremity PICC line terminates within the SVC. 3. Retrocardiac atelectasis versus infiltrate. 4. Trace left pleural effusion. Chest x-ray - 12/31/19 - Procedure: XRAY Chest 1v Procedure: XRAY Chest 1v Reason for study: Shortness of breath. Comparison films: 12/29/2019. FINDINGS: Endotracheal tube has been removed. Left PICC line remains in place. There is slight worsening of congestion and edema. Cardiac and mediastinal silhouette are within normal limits. CP angles are sharp. The bony thorax appear unremarkable. IMPRESSION: Slight worsening of congestion and edema. Chest x-ray - 01/02/20 - Procedure: XRAY Chest 1v Indication: Reason For Exam: SOB Technique: Single AP view of the chest. Comparison: Chest radiograph dated 12/31/2019 Findings: The cardiomediastinal silhouette is unchanged in appearance. No new airspace consolidation. Stable pulmonary vascular congestion. Demonstration of streaky retrocardiac airspace opacity. No pneumothorax or pleural effusion. Unchanged left PICC. IMPRESSION: No significant change from prior examination. CT abdomen and pelvis- 01/06/20 - Impression: Postsurgical changes, as described. Small amount of fluid and gas is seen along the incision no definite incisional. Incidental abscess demonstrated. Slow traversal of contrast small bowel but no definite evidence of small bowel obstruction Interim Caban catheter placement Other findings as noted, including stable old healed fracture deformity left pubic bone, inferior vena cava filter, prior cholecystectomy, L2 vertebral body compression fracture CT - abdomen and pelvis - 01/12/20 - Impression: Postsurgical changes, as described Small amount of fluid just deep to the right side of the inferior rectus abdominis muscle in the anterior pelvis, without definite contrast extravasation to suggest enteric fistula. Significance uncertain. Small amount of gas and fluid within the incision again demonstrated. No evidence of small bowel obstruction or graft bilateral small pleural effusions and posterior compressive pulmonary parenchymal atelectasis Other findings as noted, including atrophic spleen, prior cholecystectomy, inferior vena cava filter, Caban catheter, L2 vertebral body compression fracture deformity, degenerative spondylosis Microbiology Date/Time Source Procedure Growth Status 01/05/20 00:48 Stool Clostridium difficile Toxin Assay - Final Complete 01/03/20 16:00 Other Gram Stain - Final Complete 01/03/20 16:00 Wound Culture - Final Escherichia Coli Proteus Mirabilis Esbl Complete 01/01/20 16:00 Blood Blood Culture - Final NO GROWTH AFTER 5 DAYS Complete 12/29/19 14:00 Abdominal Fluid Gram Stain - Final Complete 12/29/19 14:00 Aerobic Culture - Final Escherichia Coli Complete 12/29/19 14:00 Abdominal Fluid Anaerobic Culture - Final NO ANAEROBES ISOLATED Complete 12/27/19 11:13 Nasopharynx SARS-CoV-2 RdRp Gene Assay - Final Complete 12/22/19 19:30 Urine,Clean Catch Urine Culture - Final Morganella Morg Spp Morganii Complete Laboratory Tests Test 01/11/20 16:00 01/11/20 16:41 01/11/20 22:20 01/12/20 05:00 Amikacin Level Trough 7.0 ug/mL (4.0-8.0) POC Whole Blood Glucose 109 MG/DL (74-106) H 114 MG/DL (74-106) H White Blood Count 9.7 K/UL (4.8-10.8) Red Blood Count 3.22 M/UL (4.20-5.40) L Hemoglobin 9.7 G/DL (12.0-16.0) L Hematocrit 28.7 % (37.0-47.0) L Mean Corpuscular Volume 89 FL (80-99) Mean Corpuscular Hemoglobin 30.1 PG (27.0-31.0) Mean Corpuscular Hemoglobin Concent 33.9 G/DL (32.0-36.0) Red Cell Distribution Width 14.3 % (11.6-14.8) Platelet Count 486 K/UL (150-450) H Mean Platelet Volume 6.1 FL (6.5-10.1) L Neutrophils (%) (Auto) 55.8 % (45.0-75.0) Lymphocytes (%) (Auto) 16.9 % (20.0-45.0) L Monocytes (%) (Auto) 13.4 % (1.0-10.0) H Eosinophils (%) (Auto) 10.8 % (0.0-3.0) H Basophils (%) (Auto) 3.1 % (0.0-2.0) H Sodium Level 130 MMOL/L (136-145) L Potassium Level 3.9 MMOL/L (3.5-5.1) Chloride Level 93 MMOL/L (98-107) L Carbon Dioxide Level 30 MMOL/L (21-32) Anion Gap 7 mmol/L (5-15) Blood Urea Nitrogen 29 mg/dL (7-18) H Creatinine 1.1 MG/DL (0.55-1.30) Estimat Glomerular Filtration Rate 50.7 mL/min (>60) Glucose Level 116 MG/DL (74-106) H Calcium Level 8.0 MG/DL (8.5-10.1) L Total Bilirubin 0.2 MG/DL (0.2-1.0) Aspartate Amino Transf (AST/SGOT) 18 U/L (15-37) Alanine Aminotransferase (ALT/SGPT) 16 U/L (12-78) Alkaline Phosphatase 145 U/L (46-116) H Total Protein 5.8 G/DL (6.4-8.2) L Albumin 1.8 G/DL (3.4-5.0) L Globulin 4.0 g/dL Albumin/Globulin Ratio 0.4 (1.0-2.7) L Test 01/12/20 05:06 POC Whole Blood Glucose 104 MG/DL (74-106) Current Medications Medications (Trade) Dose Ordered Sig/Margarette Route PRN Reason Start Time Stop Time Status Last Admin Dose Admin Acetaminophen/ Butalbital/ Caffeine (Fioricet) 1 tab Q6H PRN ORAL headache 12/29/19 20:30 01/18/20 20:29 12/30/19 09:04 Al Hydroxide/Mg Hydroxide (Mylanta II) 30 ml Q6H PRN ORAL GAS/DYSPEPSIA 01/05/20 08:45 02/04/20 08:44 Amikacin Protocol (Amikacin pharmacy to dose) 1 ea DAILY PRN MISC Per rx protocol 12/29/19 20:30 01/28/20 20:29 Amikacin Sulfate 750 mg/Sodium Chloride 113 ml @ 113 mls/hr Q36H IV 01/04/20 17:00 01/16/20 23:59 01/12/20 04:08 Chlorhexidine Gluconate (Patti-Hex 2%) 1 applic DAILY@1999 TOPIC 12/29/19 20:30 03/28/20 20:29 01/11/20 19:59 Clotrimazole (Lotrimin) 1 applic BID TOPIC 12/30/19 09:00 03/20/20 10:29 01/10/20 17:33 Dextrose 1,000 ml @ 0 mls/hr Q24H PRN IV PN interrupted or unavailable 12/29/19 20:30 01/28/20 20:29 Dextrose (Dextrose 50%) 25 ml Q30M PRN IV Hypoglycemia 12/29/19 20:30 03/17/20 19:59 Dextrose (Dextrose 50%) 50 ml Q30M PRN IV Hypoglycemia 12/29/19 20:30 03/17/20 19:59 Diphenhydramine HCl (Benadryl) 25 mg Q4H PRN IVP Itching 12/30/19 21:50 01/29/20 21:49 01/11/20 13:23 Diphenhydramine HCl (Benadryl) 25 mg Q6H PRN ORAL Itching 12/29/19 20:30 01/19/20 20:29 01/11/20 08:37 Fat Emulsion Intravenous 240 ml/Amino Acids/ Electrolytes/ Dextrose 1,920 ml @ 80 mls/hr Q24H IV 01/10/20 20:00 02/09/20 19:59 01/11/20 20:01 Hydromorphone HCl (Dilaudid) 1 mg Q3H PRN SUBQ Severe Breakthru Pain (>7) 01/09/20 09:25 01/16/20 09:24 01/12/20 10:39 Hydroxyzine HCl (Atarax) 50 mg Q6H PRN ORAL Itching 01/02/20 19:15 01/28/20 20:29 01/08/20 23:31 Insulin Aspart (NovoLOG) Q6HR SUBQ 12/30/19 00:00 03/18/20 00:00 Lansoprazole (Prevacid) 30 mg Q12HR ORAL 01/05/20 21:00 02/04/20 20:59 01/12/20 08:12 Metronidazole 100 ml @ 100 mls/hr Q8HR IVPB 01/11/20 22:00 01/17/20 21:59 01/12/20 05:00 Micafungin Sodium 100 mg/Sodium Chloride 110 ml @ 110 mls/hr Q24H IVPB 01/12/20 16:00 01/19/20 15:59 Ondansetron HCl (Zofran) 4 mg Q4H PRN IVP Nausea & Vomiting 12/30/19 21:40 01/29/20 21:39 01/12/20 08:12 Oxycodone/ Acetaminophen (Percocet 5-325) 1 tab Q4H PRN ORAL Moderate Pain (Pain Scale 4-6) 01/08/20 09:45 01/15/20 09:44 01/11/20 09:45 Phytonadione (Vitamin K) 10 mg ONCE A WEEK SUBQ 01/01/20 09:00 03/24/20 08:59 01/08/20 10:52 Pramipexole (Mirapex) 1 mg TWICE A DAY ORAL 12/30/19 09:00 01/16/20 17:59 01/12/20 08:12 Prochlorperazine (Compazine) 10 mg Q6H PRN IV Nausea & Vomiting 01/05/20 08:45 02/04/20 08:44 01/11/20 16:44 Quetiapine Fumarate (SEROqueL) 200 mg BEDTIME ORAL 12/29/19 21:00 01/31/20 20:59 01/11/20 22:05 Temazepam (RestoriL) 7.5 mg BEDTIME PRN ORAL Insomnia 01/08/20 22:30 01/15/20 22:29 01/11/20 20:11 Kevan Burgess MD Jan 12, 2020 12:59
[2020-01-12] MEDS: Micafungin 100 MG in NS 110 ML IVPB SCH (15:32)
[2020-01-12 16:00] VITALS: BP 115/65
[2020-01-12] MEDS: DiphenhydrAMINE 50mg/ml Inj IVP PRN ×2 (17:02→22:00)
--- NOTE | 2020-01-12 17:21 | NUR ---
CASE MANAGEMENT: REVIEW 01/12/2020 SI:BLEEDING/OOZING FROM SURGICAL SITE . LOWER EXTREMITY EDEMA . ANEMIA. POUCHITIS . MALFUNCTION ENTEROSTOMY POUCH 99.1 84 20 106/64 96% ON RA H/H 9.7/28.7 PLT 486 NA+ 130 BUN 29 CA+8.0 ALB 1.5 IS;IV TPN PROTOCOL IV FLAGYL TID IV AMIKACIN Q36HR SEROQUEL PO QHS IV LASIX QD~DC WHEN FINISHED CT ABD MED/SURG PLAN OF CARE: POUCH ENDOSCOPY IN AM CONT MONITOR DRAINAGE FROM POUCH CT ABD TODAY -Postsurgical changes, as described Small amount of fluid just deep to the right side of the inferior rectus abdominis muscle in the anterior pelvis, without definite contrast extravasation to suggest enteric fistula. Significance uncertain. Small amount of gas and fluid within the incision again demonstrated. No evidence of small bowel obstruction or graft bilateral small pleural effusions and posterior compressive pulmonary parenchymal atelectasis Other findings as noted, including atrophic spleen, prior cholecystectomy, inferior vena cava filter, Caban catheter, L2 vertebral body compression fracture deformity, degenerative spondylosis
--- NOTE | 2020-01-12 18:00 | NUR ---
NURSE NOTES: Total ileo output: 450 total urine output: 3200 Patient was able to walk in her room with PT, she reported fatigue and nausea. Patient also started ensure clear, but said it was too sweet and she would try again tomorrow. Patient drank ice water with gatorade instead of just water. RN encouraged patient to increase meal intake and explained importance of balanced nutrition.
--- NOTE | 2020-01-12 19:30 | NUR ---
NURSE HAND-OFF: Important Events on Shift:[CT abdomen] Patient Status: stable Diet: Full liquid Pending Orders: pouch endoscopy in the AM Pending Results/Labs: Pending MD notification: Latest Vital Signs: Temperature 98.2 , Pulse 87 , B/P 115 /65 , Respiratory Rate 20 , O2 SAT 97 , Room Air, O2 Flow Rate 2.0 . Vital Sign Comment: Latest Jimenez Fall Score: 60 Fall Risk: High Risk Safety Measures: Call light Within Reach, Bed Alarm Zone 1, Side Rails Side Rails x2, Bed position Low and Locked. Fall Precautions: Yellow Socks Patient Fall Education Report given to Ace RN.
--- NOTE | 2020-01-12 19:30 | NUR ---
NURSE NOTES: Receive a report from VARGAS Goldstein. Round is done. Pt is awake and alert. No acute distress noted. No nausea noted. Back pain and abdominal pain is tolerating. Pt is aware of NPO after Midnight d/t Pouch Endoscopy tomorrow. Narcisa ileostomy bag is attached without leaking. Dressing on surgical site kept dry and intact. Will change QHS. TPN is running on KELLEE as ordered. Yellow urine is patent via zheng catheter. Call light within reach. Will continue to monitor.
[2020-01-12 20:00] VITALS: BP 108/66
[2020-01-12] MEDS: Dyna-Hex 2% Top Sol 2oz TOPIC SCH (20:13)
[2020-01-12] MEDS: Fat Emulsion Iv 20% 240 ML in Tpn 1,680 ML IV SCH (20:14)
[2020-01-12] MEDS: QUEtiapine 200mg tab ORAL SCH (21:59)
--- NOTE | 2020-01-12 22:30 | NUR ---
NURSE NOTES: Apply lotion for dry skin and itching with Benadryl 25mg IVS. Dressing changed. Noted yellowish discharge on a hole staple site and one 4x4 gauze got soaked. Clean up with gauze and apply new dressing. Will continue to monitor.
[2020-01-13] VITALS (12 sets, daily range): BP systolic 105–129; BP diastolic 58–92
[2020-01-13] MEDS: HYDROmorphone 1mg/ml Carpuject SUBQ PRN ×5 (00:12→19:29)
[2020-01-13 05:47] LABS: BASOPHILS % (AUTO) 1.2 % (0.0-2.0); EOSINOPHILS % (AUTO) 9.4 % (0.0-3.0); HEMATOCRIT 30.6 % (37.0-47.0); HEMOGLOBIN 10.4 G/DL (12.0-16.0); LYMPHOCYTES % (AUTO) 15.6 % (20.0-45.0); MEAN CORPUSCULAR VOLUME 89 FL (80-99); MONOCYTES % (AUTO) 10.9 % (1.0-10.0); NEUTROPHILS % (AUTO) 62.9 % (45.0-75.0); PLATELET COUNT 575 K/UL (150-450); RED BLOOD COUNT 3.44 M/UL (4.20-5.40); RED CELL DISTRIBUTION WIDTH 14.5 % (11.6-14.8); WHITE BLOOD COUNT 9.9 K/UL (4.8-10.8)
[2020-01-13 05:54] LABS: ALBUMIN/GLOBULIN RATIO 0.5 (1.0-2.7); BILIRUBIN,TOTAL 0.2 MG/DL (0.2-1.0); CALCIUM 8.4 MG/DL (8.5-10.1); CREATININE 1.2 MG/DL (0.55-1.30); PHOSPHORUS 4.8 MG/DL (2.5-4.9); POTASSIUM 3.5 MMOL/L (3.5-5.1)
[2020-01-13] MEDS: NovoLOG Insulin Flexpen SUBQ SCH ×4 (06:00→17:01)
--- NOTE | 2020-01-13 06:00 | NUR ---
NURSE NOTES: No acute distress noted. Given pain medication x2 overnight. Denies nausea. Changed dressing on surgical site. two of 4x4 gauze got wet with discharge. Planning to have Pouch Endoscopy today. Consent form is in chart. On NPO. Will continue to monitor. 12hrs output Urine: 1000ml Narcisa Ileostomy: 225ml
--- NOTE | 2020-01-13 06:49 | NUR ---
NURSE HAND-OFF: Important Events on Shift:back and abdominal pain, itching, changed dressing 2x Patient Status: stable Diet: NPO except ice chips and po medication Pending Orders: [] Pending Results/Labs:[] Pending MD notification:[] Latest Vital Signs: Temperature 98.0 , Pulse 93 , B/P 114 /66 , Respiratory Rate 18 , O2 SAT 95 , Room Air, O2 Flow Rate 2.0 . Vital Sign Comment: [] Latest Jimenez Fall Score: 60 Fall Risk: High Risk Safety Measures: Call light Within Reach, Bed Alarm Zone 1, Side Rails Side Rails x2, Bed position Low and Locked. Fall Precautions: Yellow Socks Door Sign Patient Fall Education Report given to [].
--- NOTE | 2020-01-13 07:30 | NUR ---
NURSE NOTES: PATIENT RECEIVED IN STABLE CONDITION. RESTING IN BED. CURRENTLY, NPO FOR POUCH ENDOSCOPY TODAY.BED INLOW AND LOCKED POSITION. CALL LIGHT WITHIN REACH.
--- NOTE | 2020-01-13 07:30 | NUR ---
HAND-OFF: Report given to VARGAS Brooks.
--- NOTE | 2020-01-13 07:57 | Pulmonology Progress Note ---
Subjective Constitutional: Denies: fever HEENT: Repors: no symptoms Respiratory: Reports: no symptoms Cardiovascular: Reports: no symptoms Gastrointestinal/Abdominal: Denies: nausea, vomiting Genitourinary: Reports: no symptoms Psychiatric: Denies: depression Skin: Denies: rash Musculoskeletal: Denies: pain Allergies: Coded Allergies: AMPICILLIN (Verified Allergy, Unknown, 12/17/19) TETRACYCLINE (Verified Allergy, Unknown, 12/17/19) Subjective comfortable no distress no sob CT completed Objective Last 24 Hour Vital Signs Date Time Temp Pulse Resp B/P (MAP) Pulse Ox O2 Delivery O2 Flow Rate FiO2 01/13/20 04:00 98.0 93 18 114/66 (82) 95 01/13/20 00:00 98.9 97 18 105/66 (79) 95 01/12/20 21:00 Room Air 01/12/20 20:17 97 Room Air 21 01/12/20 20:00 98.6 87 20 108/66 (80) 97 01/12/20 19:12 98.2 01/12/20 16:03 98.2 01/12/20 16:00 98.2 87 20 115/65 (82) 97 01/12/20 12:00 97.9 86 19 119/68 (85) 98 01/12/20 11:09 99.1 01/12/20 08:00 99.1 84 20 106/64 (78) 96 Intake and Output 01/12/20 01/13/20 19:00 07:00 Intake Total 1200 ml 530 ml Output Total 3650 ml 1225 ml Balance -2450 ml -695 ml Intake Oral 1200 ml 450 ml IV Total 80 ml Output Urine Total 3200 ml 1000 ml Other 450 ml 225 ml General Appearance: no acute distress Respiratory: chest wall non-tender, normal breath sounds, no respiratory distress, no accessory muscle use Cardiovascular: normal peripheral pulses, normal rate, regular rhythm, no gallop/murmur Abdomen: normal bowel sounds, soft, non tender, non distended Extremities: no cyanosis, no clubbing, no edema Microbiology Date/Time Source Procedure Growth Status 01/12/20 11:28 Abdomen Gram Stain - Final Resulted 01/12/20 11:28 Abdomen Wound Culture Pending Resulted Laboratory Tests 01/12/20 12:09: POC Whole Blood Glucose 131H 01/12/20 18:14: POC Whole Blood Glucose 106 01/13/20 00:04: POC Whole Blood Glucose 121H 01/13/20 05:05: White Blood Count 9.9, Red Blood Count 3.44L, Hemoglobin 10.4L, Hematocrit 30.6L , Mean Corpuscular Volume 89, Mean Corpuscular Hemoglobin 30.1, Mean Corpuscular Hemoglobin Concent 33.8, Red Cell Distribution Width 14.5, Platelet Count 575H, Mean Platelet Volume 6.9, Neutrophils (%) (Auto) 62.9, Lymphocytes (%) (Auto) 15.6L, Monocytes (%) (Auto) 10.9H, Eosinophils (%) (Auto) 9.4H, Basophils (%) (Auto) 1.2, Sodium Level 128L, Potassium Level 3.5, Chloride Level 92L, Carbon Dioxide Level 30, Anion Gap 6, Blood Urea Nitrogen 30H, Creatinine 1.2, Estimat Glomerular Filtration Rate 45.9, Glucose Level 125H, Calcium Level 8.4L, Phosphorus Level 4.8, Magnesium Level 1.8, Total Bilirubin 0.2, Aspartate Amino Transf (AST/SGOT) 17, Alanine Aminotransferase (ALT/SGPT) 15, Alkaline Phosphatase 156H, Total Protein 5.9L, Albumin 2.0L, Globulin 3.9, Albumin/Globulin Ratio 0.5L 01/13/20 05:17: POC Whole Blood Glucose 133H Current Medications Medications (Trade) Dose Ordered Sig/Margarette Route PRN Reason Start Time Stop Time Status Last Admin Dose Admin Acetaminophen/ Butalbital/ Caffeine (Fioricet) 1 tab Q6H PRN ORAL headache 12/29/19 20:30 01/18/20 20:29 12/30/19 09:04 Al Hydroxide/Mg Hydroxide (Mylanta II) 30 ml Q6H PRN ORAL GAS/DYSPEPSIA 01/05/20 08:45 02/04/20 08:44 Amikacin Protocol (Amikacin pharmacy to dose) 1 ea DAILY PRN MISC Per rx protocol 12/29/19 20:30 01/28/20 20:29 Amikacin Sulfate 750 mg/Sodium Chloride 113 ml @ 113 mls/hr Q36H IV 01/04/20 17:00 01/16/20 23:59 01/12/20 04:08 Chlorhexidine Gluconate (Patti-Hex 2%) 1 applic DAILY@1999 TOPIC 12/29/19 20:30 03/28/20 20:29 01/12/20 20:13 Clotrimazole (Lotrimin) 1 applic BID TOPIC 12/30/19 09:00 03/20/20 10:29 01/10/20 17:33 Dextrose 1,000 ml @ 0 mls/hr Q24H PRN IV PN interrupted or unavailable 12/29/19 20:30 01/28/20 20:29 Dextrose (Dextrose 50%) 25 ml Q30M PRN IV Hypoglycemia 12/29/19 20:30 03/17/20 19:59 Dextrose (Dextrose 50%) 50 ml Q30M PRN IV Hypoglycemia 12/29/19 20:30 03/17/20 19:59 Diphenhydramine HCl (Benadryl) 25 mg Q4H PRN IVP Itching 12/30/19 21:50 01/29/20 21:49 01/12/20 22:00 Diphenhydramine HCl (Benadryl) 25 mg Q6H PRN ORAL Itching 12/29/19 20:30 01/19/20 20:29 01/11/20 08:37 Fat Emulsion Intravenous 240 ml/Amino Acids/ Electrolytes/ Dextrose 1,920 ml @ 80 mls/hr Q24H IV 01/10/20 20:00 02/09/20 19:59 01/12/20 20:14 Hydromorphone HCl (Dilaudid) 1 mg Q3H PRN SUBQ Severe Breakthru Pain (>7) 01/09/20 09:25 01/16/20 09:24 01/13/20 04:30 Hydroxyzine HCl (Atarax) 50 mg Q6H PRN ORAL Itching 01/02/20 19:15 01/28/20 20:29 01/08/20 23:31 Insulin Aspart (NovoLOG) Q6HR SUBQ 12/30/19 00:00 03/18/20 00:00 Lansoprazole (Prevacid) 30 mg Q12HR ORAL 01/05/20 21:00 02/04/20 20:59 01/12/20 21:59 Metronidazole 100 ml @ 100 mls/hr Q8HR IVPB 01/11/20 22:00 01/17/20 21:59 01/13/20 05:25 Micafungin Sodium 100 mg/Sodium Chloride 110 ml @ 110 mls/hr Q24H IVPB 01/12/20 16:00 01/19/20 15:59 01/12/20 15:32 Ondansetron HCl (Zofran) 4 mg Q4H PRN IVP Nausea & Vomiting 12/30/19 21:40 01/29/20 21:39 01/12/20 18:42 Oxycodone/ Acetaminophen (Percocet 5-325) 1 tab Q4H PRN ORAL Moderate Pain (Pain Scale 4-6) 01/08/20 09:45 01/15/20 09:44 01/11/20 09:45 Phytonadione (Vitamin K) 10 mg ONCE A WEEK SUBQ 01/01/20 09:00 03/24/20 08:59 01/08/20 10:52 Pramipexole (Mirapex) 1 mg TWICE A DAY ORAL 12/30/19 09:00 01/16/20 17:59 01/12/20 18:09 Prochlorperazine (Compazine) 10 mg Q6H PRN IV Nausea & Vomiting 01/05/20 08:45 02/04/20 08:44 01/11/20 16:44 Quetiapine Fumarate (SEROqueL) 200 mg BEDTIME ORAL 12/29/19 21:00 01/31/20 20:59 01/12/20 21:59 Temazepam (RestoriL) 7.5 mg BEDTIME PRN ORAL Insomnia 01/08/20 22:30 01/15/20 22:29 01/12/20 20:25 Assessment/Plan Assessment/Plan IMPRESSION: 1. Status post laparotomy. 2. Ulcerative colitis. 3. Bilateral pleural effusions and atelectasis. minimal 4. anemia 5. severe PCM DISCUSSION: Continue oxygen and pulmonary hygiene as needed monitor for congestion - currently stable Pain control. DVT prophylaxis. GI prophylaxis. incentive missy monitor imaging for change and intervene monitor oxygen needs impression, plan, and exam edited and reviewed in detail care discussed with Jarek Mendoza MD Jan 13, 2020 07:57
--- NOTE | 2020-01-13 08:47 | General Progress Note ---
Progress Note Progress Note AVSS CT scan showed no significant fluid collection or abscess Abdomen soft, draining less Urine 4200 Ileostomy 675 Hgb 10.4 Na 128 albumin 2 Imp: slowly improving Plan: J pouch endoscopy today Increase Na in TPN Gio Mckeon MD Jan 13, 2020 08:47
[2020-01-13] MEDS: Pramipexole 0.5mg tab ORAL SCH ×2 (09:18→17:58)
--- NOTE | 2020-01-13 11:21 | Pre-Procedure Note/Attestation ---
Pre-Procedure Note/Attestation Complete Prior to Procedure Planned Procedure: not applicable Procedure Narrative: pouchoscopy Indications for Procedure Pre-Operative Diagnosis: bleeding Attestation I attest that I discussed the nature of the procedure; its benefits; risks and complications; and alternatives (and the risks and benefits of such alternatives), prior to the procedure, with the patient (or the patient's legal patient portal representative). I attest that, if there was a reasonable possibility of needing a blood arnold sfusion, the patient (or the patient's legal patient portal representative) was given the [facility] standardized written summary, pursuant to the Jossue Hoda Blood Safety Act ([place] Health and Safety Code # 1645, as amended). I attest that I re-evaluated the patient just prior to the surgery and that there has been no change in the patient's H&P, except as documented below: Amando Vaz MD Jan 13, 2020 11:21
[2020-01-13] MEDS ORDERED: Midazolam 2mg/2ml Inj ONE (11:37)
[2020-01-13] MEDS ORDERED: fentaNYL 100 mcg/2 mL IV ONE (11:51)
[2020-01-13] MEDS ORDERED: NS 500ML IVPB ONE (12:10)
--- NOTE | 2020-01-13 12:22 | Anethesia Preoperative Eval ---
Anesthesia Pre-op PMH/ROS General Date of Evaluation: Jan 13, 2020 Time of Evaluation: 12:09 Anesthesiologist: Karlie ASA Score: ASA 3 Mallampati Score Class I : Soft palate, uvula, fauces, pillars visible Class II: Soft palate, uvula, fauces visible Class III: Soft palate, base of uvula visible Class IV: Only hard plate visible Mallampati Classification: Class II Surgeon: Татьяна Diagnosis: Bleeding J-pouch Surgical Procedure: Pouchoscopy Anesthesia History: none Family History: no anesthesia problems Allergies: Coded Allergies: AMPICILLIN (Verified Allergy, Unknown, 12/17/19) TETRACYCLINE (Verified Allergy, Unknown, 12/17/19) Patient NPO?: Yes Past Medical History Cardiovascular: Denies: HTN, CAD, [place], valve dz, arrhythmia, other Pulmonary: Reports: other - respiratory failure prolonged postop intubation; Denies: asthma, COPD, CHRISTIANO Gastrointestinal/Genitourinary: Reports: GERD, other - h/o UC s/p total colectomy; Denies: CRI, ESRD Neurologic/Psychiatric: Reports: depression/anxiety; Denies: dementia, CVA, TIA, other Endocrine: Reports: hypothyroidism; Denies: DM, steroids, other HEENT: Denies: cataract (L), cataract (R), glaucoma, CHILKAT (L), CHILKAT (R), other Hematology/Immune: Reports: anemia; Denies: DVT, bleeding disorder, other Musculoskeletal/Integumentary: Denies: OA, RA, DJD, DDD, edema, other Other: other - malnourished PMH Narrative: as above PSxH Narrative: See H&P for full list of previous surgeries Anesthesia Pre-op Phys. Exam Physician Exam Last Vital Signs Date Time Temp Pulse Resp B/P (MAP) Pulse Ox O2 Delivery O2 Flow Rate FiO2 01/13/20 09:48 98.8 01/13/20 08:00 87 18 108/66 (80) 95 01/13/20 07:49 Room Air 21 01/09/20 07:00 2.0 Constitutional: NAD Neurologic: CN 2-12 intact Cardiovascular: RRR, no M/R/G Respiratory: CTA Gastrointestinal: S/NT/ND Airway Exam Mallampati Score: Class II MO: limited ROM: limited Teeth: missing Dentures: no upper, no lower Anesthesia Pre-op A/P Labs Hematology Test 01/13/20 05:05 White Blood Count 9.9 K/UL (4.8-10.8) Red Blood Count 3.44 M/UL (4.20-5.40) L Hemoglobin 10.4 G/DL (12.0-16.0) L Hematocrit 30.6 % (37.0-47.0) L Mean Corpuscular Volume 89 FL (80-99) Mean Corpuscular Hemoglobin 30.1 PG (27.0-31.0) Mean Corpuscular Hemoglobin Concent 33.8 G/DL (32.0-36.0) Red Cell Distribution Width 14.5 % (11.6-14.8) Platelet Count 575 K/UL (150-450) H Mean Platelet Volume 6.9 FL (6.5-10.1) Neutrophils (%) (Auto) 62.9 % (45.0-75.0) Lymphocytes (%) (Auto) 15.6 % (20.0-45.0) L Monocytes (%) (Auto) 10.9 % (1.0-10.0) H Eosinophils (%) (Auto) 9.4 % (0.0-3.0) H Basophils (%) (Auto) 1.2 % (0.0-2.0) Chemistry Test 01/12/20 18:14 01/13/20 00:04 01/13/20 05:05 01/13/20 05:17 POC Whole Blood Glucose 106 MG/DL (74-106) 121 MG/DL (74-106) H 133 MG/DL (74-106) H Sodium Level 128 MMOL/L (136-145) L Potassium Level 3.5 MMOL/L (3.5-5.1) Chloride Level 92 MMOL/L (98-107) L Carbon Dioxide Level 30 MMOL/L (21-32) Anion Gap 6 mmol/L (5-15) Blood Urea Nitrogen 30 mg/dL (7-18) H Creatinine 1.2 MG/DL (0.55-1.30) Estimat Glomerular Filtration Rate 45.9 mL/min (>60) Glucose Level 125 MG/DL (74-106) H Calcium Level 8.4 MG/DL (8.5-10.1) L Phosphorus Level 4.8 MG/DL (2.5-4.9) Magnesium Level 1.8 MG/DL (1.8-2.4) Total Bilirubin 0.2 MG/DL (0.2-1.0) Aspartate Amino Transf (AST/SGOT) 17 U/L (15-37) Alanine Aminotransferase (ALT/SGPT) 15 U/L (12-78) Alkaline Phosphatase 156 U/L (46-116) H Total Protein 5.9 G/DL (6.4-8.2) L Albumin 2.0 G/DL (3.4-5.0) L Globulin 3.9 g/dL Albumin/Globulin Ratio 0.5 (1.0-2.7) L Test 01/13/20 11:53 POC Whole Blood Glucose 113 MG/DL (74-106) H Risk Assessment & Plan Assessment: ASA 3 Plan: MAC Status Change Before Surgery: No Pre-Antibiotics Drug: as scheduled Tim Ziegler MD Jan 13, 2020 12:22
--- NOTE | 2020-01-13 12:30 | NUR ---
NURSE NOTES: PATIENT SENT TO GI LAB VIA GURNEY AND ACCOMPANIED BY ANCILLARY WORKER. PATIENT IDENTIFED AT BEDSIDE WITH ANCILLARY WORKER.
--- NOTE | 2020-01-13 12:51 | Endoscopy Procedure Note ---
Endoscopy Procedure Note General Indication for Procedure: bleeding Procedures Performed: other - J pouchoscopy Operative Findings/Diagnosis: same Specimen: none Pt Tolerated Procedure Well: Yes Estimated Blood Loss: none Anesthesia Anesthesiologist: pierre Anesthesia: MAC Inserted Devices Implant(s) used?: No GI Core Measures 50 yrs or older w/o bx or poly: Not Applicable 10yrs. F/U recommended: Not Applicable Amando Vaz MD Jan 13, 2020 12:51
[2020-01-13] MEDS ORDERED: Hydromorphone 0.5mg/0.5ml inj ONE (12:59)
--- NOTE | 2020-01-13 13:01 | Immediate Post-Op Evaluation ---
Immediate Post-Op Evalulation Immediate Post-Op Evalulation Procedure: Pouchoscopy Date of Evaluation: Jan 13, 2020 Time of Evaluation: 13:00 IV Fluids: 100 Blood Products: none Estimated Blood Loss: min Urinary Output: none Blood Pressure Systolic: 124 Blood Pressure Diastolic: 56 Pulse Rate: 88 Respiratory Rate: 22 O2 Sat by Pulse Oximetry: 99 Temperature (Fahrenheit): 97.6 Pain Score (1-10): 3 Nausea: Yes Vomiting: No Complications none Patient Status: awake, patent, none Hydration Status: adequate Tim Ziegler MD Jan 13, 2020 13:01
[2020-01-13] MEDS ORDERED: LR 1000ml 1,000 ML IVLG SCH (13:15)
[2020-01-13] MEDS ORDERED: Hydromorphone 0.5mg/0.5ml inj IVP PRN (13:15)
--- NOTE | 2020-01-13 13:54 | 48 Hour Post Anesthesia Eval ---
Post Anesthesia Evaluation Procedure: Pouchoscopy Date of Evaluation: Jan 13, 2020 Time of Evaluation: 13:52 Blood Pressure Systolic: 122 0: 56 Pulse Rate: 72 Respiratory Rate: 18 Temperature (Fahrenheit): 97.6 O2 Sat by Pulse Oximetry: 99 Airway: patent Nausea: No Vomiting: No Pain Intensity: 1 Hydration Status: adequate Cardiopulmonary Status: stable Mental Status/LOC: patient returned to baseline Follow-up Care/Observations: n/a Post-Anesthesia Complications: none Follow-up care needed: N/A Tim Ziegler MD Jan 13, 2020 13:54
--- NOTE | 2020-01-13 14:15 | NUR ---
NURSE NOTES: PATIENT RETURNED FROM GI LAB VIA GURNEY.AOX4. DENIES ANY PAIN. REPORT RECEIVED.
[2020-01-13] MEDS: Micafungin 100 MG in NS 110 ML IVPB SCH (16:00)
--- NOTE | 2020-01-13 16:35 | Infectious Diseases Prog Note ---
Assessment/Plan Assessment/Plan ASSESSMENT AND PLAN: 1. e.coli uti, morganella uti, left leg cellulitis, ? reaction/atypical drug rash to aztreonam, allergies - ampicillin, tetracycline s/p surgery on 12/29/19 surgical abdominal fluid with e.coli - s-amikacin initial wound drainage culture with esbl e.coli and proteus, f/u wound culture negative fungemia risk, TPN - amikacin, flagyl, micafungin - day # 14 post-op - will discontinue antibiotics and anti-fungals and monitor patient - CT abdomen and pelvis - no abscess - monitor labs - leukocytosis resolved - management per Dr. Mckeon - d/w Dr. Mckeon - d/w RN and patient 2. skin care per protocol - ? fungal component, on clotrimazole cream 3. 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 4. History of Narcisa ileostomy. 5. History of ulcerative colitis. 6. History of multiple abdominal surgeries. 7. History of cholecystectomy. 8. History of peristomal hernia and mesh. 9. History of colectomy. 10. Continue treatment per Dr. Mckeon and consultants. 11. Allergies to ampicillin, tetracycline. She gets hives with ampicillin. 12. Social history is negative. 13. Family history is noncontributory. 14. MAR is noted. 15. Case was discussed with RN. 16. Case was discussed with Dr. Mckeon. 17. Case was discussed with the patient. Subjective Constitutional: Denies: fever HEENT: Denies: congestion Respiratory: Denies: shortness of breath Cardiovascular: Denies: chest pain Gastrointestinal/Abdominal: Denies: nausea, vomiting Neurologic: Denies: headache Psychiatric: Denies: depression Skin: Denies: rash Hematologic: Denies: bleeding Musculoskeletal: Denies: pain Allergies: Coded Allergies: AMPICILLIN (Verified Allergy, Unknown, 12/17/19) TETRACYCLINE (Verified Allergy, Unknown, 12/17/19) Objective Last 24 Hour Vital Signs Date Time Temp Pulse Resp B/P (MAP) Pulse Ox O2 Delivery O2 Flow Rate FiO2 01/13/20 13:54 72 18 99 01/13/20 13:35 97.7 01/13/20 13:30 97.9 91 20 123/72 100 Room Air 01/13/20 13:22 91 23 121/78 100 Nasal Cannula 3 01/13/20 13:12 92 23 122/80 100 Nasal Cannula 3 01/13/20 13:02 91 18 120/77 100 Nasal Cannula 3 01/13/20 13:01 88 22 99 01/13/20 12:57 98 16 113/79 100 Nasal Cannula 3 01/13/20 12:52 97.5 95 16 129/92 100 Nasal Cannula 3 01/13/20 12:00 98.3 88 20 121/75 (90) 94 01/13/20 09:48 98.8 01/13/20 08:00 98.8 87 18 108/66 (80) 95 01/13/20 07:49 94 Room Air 21 01/13/20 04:00 98.0 93 18 114/66 (82) 95 01/13/20 00:00 98.9 97 18 105/66 (79) 95 01/12/20 21:00 Room Air 01/12/20 20:17 97 Room Air 21 01/12/20 20:00 98.6 87 20 108/66 (80) 97 01/12/20 19:12 98.2 Height (Feet): 5 Height (Inches): 5.00 Weight (Pounds): 137 General Appearance: no acute distress HEENT: normocephalic, atraumatic, anicteric, mucous membranes moist Respiratory/Chest: lungs clear, normal breath sounds, no respiratory distress Cardiovascular: normal rate, regular rhythm, no gallop/murmur, no JVD Abdomen: normal bowel sounds, soft, non tender, no organomegaly, non distended Genitourinary: other - no zheng Extremities: no cyanosis Skin: no rash 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 No focal airspace consolidation. No effusions. Normal heart size Impression: Acuity indeterminate mild interstitial disease. Correlate with clinical findings. No focal infiltrates CT abdomen and pelvis: Impression: Postsurgical changes, as described, including right lower quadrant simple ileostomy, prior total colectomy, and J-pouch. There is abundant anterior pelvic apparent defunctionalized small bowel which appears to be in continuity with and ileoanal J-pouch remnant. Most likely, this just represents old isolated small bowel, but the possibility of any of this representing either tumor or abscess is not completely excludable. Small parastomal hernia within the right lower quadrant ileostomy. This appears to be nonobstructive. Equivocal mild wall thickening of left upper quadrant jejunal loops. Enteritis is possible and correlation with clinical findings is recommended Age-indeterminate L2 vertebral body compression fracture deformity. Suspect old. Consider MRI if clinically relevant Prior cholecystectomy Inferior vena cava filter Findings discussed by phone Chest x-ray - 12/29/19 - FINDINGS: Lungs: Retrocardiac atelectasis versus infiltrate. No consolidation or interstitial edema. Pleural space: Trace left pleural effusion. Heart: Unremarkable. No cardiomegaly. Bones/joints: Unremarkable. Tubes, lines and devices: Endotracheal tube terminates 3 cm above the kyung. Left upper extremity PICC line terminates within the SVC. IMPRESSION: 1. Endotracheal tube terminates 3 cm above the kyung. 2. Left upper extremity PICC line terminates within the SVC. 3. Retrocardiac atelectasis versus infiltrate. 4. Trace left pleural effusion. Chest x-ray - 12/31/19 - Procedure: XRAY Chest 1v Procedure: XRAY Chest 1v Reason for study: Shortness of breath. Comparison films: 12/29/2019. FINDINGS: Endotracheal tube has been removed. Left PICC line remains in place. There is slight worsening of congestion and edema. Cardiac and mediastinal silhouette are within normal limits. CP angles are sharp. The bony thorax appear unremarkable. IMPRESSION: Slight worsening of congestion and edema. Chest x-ray - 01/02/20 - Procedure: XRAY Chest 1v Indication: Reason For Exam: SOB Technique: Single AP view of the chest. Comparison: Chest radiograph dated 12/31/2019 Findings: The cardiomediastinal silhouette is unchanged in appearance. No new airspace consolidation. Stable pulmonary vascular congestion. Demonstration of streaky retrocardiac airspace opacity. No pneumothorax or pleural effusion. Unchanged left PICC. IMPRESSION: No significant change from prior examination. CT abdomen and pelvis- 01/06/20 - Impression: Postsurgical changes, as described. Small amount of fluid and gas is seen along the incision no definite incisional. Incidental abscess demonstrated. Slow traversal of contrast small bowel but no definite evidence of small bowel obstruction Interim Zheng catheter placement Other findings as noted, including stable old healed fracture deformity left pubic bone, inferior vena cava filter, prior cholecystectomy, L2 vertebral body compression fracture CT - abdomen and pelvis - 01/12/20 - Impression: Postsurgical changes, as described Small amount of fluid just deep to the right side of the inferior rectus abdominis muscle in the anterior pelvis, without definite contrast extravasation to suggest enteric fistula. Significance uncertain. Small amount of gas and fluid within the incision again demonstrated. No evidence of small bowel obstruction or graft bilateral small pleural effusions and posterior compressive pulmonary parenchymal atelectasis Other findings as noted, including atrophic spleen, prior cholecystectomy, inferior vena cava filter, Zheng catheter, L2 vertebral body compression fracture deformity, degenerative spondylosis CT abdomen and pelvis - 01/12/20 - Impression: Postsurgical changes, as described Small amount of fluid just deep to the right side of the inferior rectus abdominis muscle in the anterior pelvis, without definite contrast extravasation to sugges t enteric fistula. Significance uncertain. Small amount of gas and fluid within the incision again demonstrated. No evidence of small bowel obstruction or graft bilateral small pleural effusions and posterior compressive pulmonary parenchymal atelectasis Other findings as noted, including atrophic spleen, prior cholecystectomy, inferior vena cava filter, Zheng catheter, L2 vertebral body compression fracture deformity, degenerative spondylosis Microbiology Date/Time Source Procedure Growth Status 01/12/20 11:28 Abdomen Gram Stain - Final Resulted 01/12/20 11:28 Abdomen Wound Culture - Preliminary NO GROWTH Resulted Laboratory Tests Test 01/12/20 18:14 01/13/20 00:04 01/13/20 05:05 01/13/20 05:17 POC Whole Blood Glucose 106 MG/DL (74-106) 121 MG/DL (74-106) H 133 MG/DL (74-106) H White Blood Count 9.9 K/UL (4.8-10.8) Red Blood Count 3.44 M/UL (4.20-5.40) L Hemoglobin 10.4 G/DL (12.0-16.0) L Hematocrit 30.6 % (37.0-47.0) L Mean Corpuscular Volume 89 FL (80-99) Mean Corpuscular Hemoglobin 30.1 PG (27.0-31.0) Mean Corpuscular Hemoglobin Concent 33.8 G/DL (32.0-36.0) Red Cell Distribution Width 14.5 % (11.6-14.8) Platelet Count 575 K/UL (150-450) H Mean Platelet Volume 6.9 FL (6.5-10.1) Neutrophils (%) (Auto) 62.9 % (45.0-75.0) Lymphocytes (%) (Auto) 15.6 % (20.0-45.0) L Monocytes (%) (Auto) 10.9 % (1.0-10.0) H Eosinophils (%) (Auto) 9.4 % (0.0-3.0) H Basophils (%) (Auto) 1.2 % (0.0-2.0) Sodium Level 128 MMOL/L (136-145) L Potassium Level 3.5 MMOL/L (3.5-5.1) Chloride Level 92 MMOL/L (98-107) L Carbon Dioxide Level 30 MMOL/L (21-32) Anion Gap 6 mmol/L (5-15) Blood Urea Nitrogen 30 mg/dL (7-18) H Creatinine 1.2 MG/DL (0.55-1.30) Estimat Glomerular Filtration Rate 45.9 mL/min (>60) Glucose Level 125 MG/DL (74-106) H Calcium Level 8.4 MG/DL (8.5-10.1) L Phosphorus Level 4.8 MG/DL (2.5-4.9) Magnesium Level 1.8 MG/DL (1.8-2.4) Total Bilirubin 0.2 MG/DL (0.2-1.0) Aspartate Amino Transf (AST/SGOT) 17 U/L (15-37) Alanine Aminotransferase (ALT/SGPT) 15 U/L (12-78) Alkaline Phosphatase 156 U/L (46-116) H Total Protein 5.9 G/DL (6.4-8.2) L Albumin 2.0 G/DL (3.4-5.0) L Globulin 3.9 g/dL Albumin/Globulin Ratio 0.5 (1.0-2.7) L Test 01/13/20 11:53 POC Whole Blood Glucose 113 MG/DL (74-106) H Current Medications Medications (Trade) Dose Ordered Sig/Margarette Route PRN Reason Start Time Stop Time Status Last Admin Dose Admin Acetaminophen/ Butalbital/ Caffeine (Fioricet) 1 tab Q6H PRN ORAL headache 12/29/19 20:30 01/18/20 20:29 12/30/19 09:04 Al Hydroxide/Mg Hydroxide (Mylanta II) 30 ml Q6H PRN ORAL GAS/DYSPEPSIA 01/05/20 08:45 02/04/20 08:44 Amikacin Protocol (Amikacin pharmacy to dose) 1 ea DAILY PRN MISC Per rx protocol 12/29/19 20:30 01/28/20 20:29 Amikacin Sulfate 750 mg/Sodium Chloride 113 ml @ 113 mls/hr Q36H IV 01/04/20 17:00 01/16/20 23:59 01/12/20 04:08 Chlorhexidine Gluconate (Patti-Hex 2%) 1 applic DAILY@1999 TOPIC 12/29/19 20:30 03/28/20 20:29 01/12/20 20:13 Clotrimazole (Lotrimin) 1 applic BID TOPIC 12/30/19 09:00 03/20/20 10:29 01/10/20 17:33 Dextrose 1,000 ml @ 0 mls/hr Q24H PRN IV PN interrupted or unavailable 12/29/19 20:30 01/28/20 20:29 Dextrose (Dextrose 50%) 25 ml Q30M PRN IV Hypoglycemia 12/29/19 20:30 03/17/20 19:59 Dextrose (Dextrose 50%) 50 ml Q30M PRN IV Hypoglycemia 12/29/19 20:30 03/17/20 19:59 Diphenhydramine HCl (Benadryl) 25 mg Q4H PRN IVP Itching 12/30/19 21:50 01/29/20 21:49 01/12/20 22:00 Diphenhydramine HCl (Benadryl) 25 mg Q6H PRN ORAL Itching 12/29/19 20:30 01/19/20 20:29 01/11/20 08:37 Fat Emulsion Intravenous 240 ml/Amino Acids/ Electrolytes/ Dextrose 1,920 ml @ 80 mls/hr Q24H IV 01/10/20 20:00 01/13/20 19:59 01/12/20 20:14 Fat Emulsion Intravenous 240 ml/Amino Acids/ Electrolytes/ Dextrose 1,920 ml @ 80 mls/hr Q24H IV 01/13/20 20:00 02/12/20 19:59 Hydromorphone HCl (Dilaudid) 1 mg Q3H PRN SUBQ Severe Breakthru Pain (>7) 01/09/20 09:25 01/16/20 09:24 01/13/20 09:18 Hydroxyzine HCl (Atarax) 50 mg Q6H PRN ORAL Itching 01/02/20 19:15 01/28/20 20:29 01/08/20 23:31 Insulin Aspart (NovoLOG) Q6HR SUBQ 12/30/19 00:00 03/18/20 00:00 Lansoprazole (Prevacid) 30 mg Q12HR ORAL 01/05/20 21:00 02/04/20 20:59 01/13/20 09:18 Mesalamine (Rowasa) 4 gm BEDTIME RECTAL 01/13/20 21:00 04/12/20 20:59 Ondansetron HCl (Zofran) 4 mg Q4H PRN IVP Nausea & Vomiting 12/30/19 21:40 01/29/20 21:39 01/12/20 18:42 Oxycodone/ Acetaminophen (Percocet 5-325) 1 tab Q4H PRN ORAL Moderate Pain (Pain Scale 4-6) 01/13/20 08:47 01/20/20 08:46 Phytonadione (Vitamin K) 10 mg ONCE A WEEK SUBQ 01/01/20 09:00 03/24/20 08:59 01/08/20 10:52 Pramipexole (Mirapex) 1 mg TWICE A DAY ORAL 12/30/19 09:00 01/16/20 17:59 01/13/20 09:18 Prochlorperazine (Compazine) 10 mg Q6H PRN IV Nausea & Vomiting 01/05/20 08:45 02/04/20 08:44 01/11/20 16:44 Quetiapine Fumarate (SEROqueL) 200 mg BEDTIME ORAL 12/29/19 21:00 01/31/20 20:59 01/12/20 21:59 Temazepam (RestoriL) 7.5 mg BEDTIME PRN ORAL Insomnia 01/08/20 22:30 01/15/20 22:29 01/12/20 20:25 Kevan Burgess MD Jan 13, 2020 16:35
--- NOTE | 2020-01-13 18:00 | NUR ---
NURSE NOTES: PATIENT REMAINS TO HAVE POOR APPETITE. ONLY WANTS THE GATORADE AND WATER. NO NAUSEA ISSUES TODAY. STATE SHE JUST DOES NOT HAVE AN APPETITE YET. PCP BEEN AWARE OF STATUS. WILL CONTINUE TO ENCOURAGE TO EAT.
--- NOTE | 2020-01-13 19:00 | Procedure Note ---
DATE OF PROCEDURE: 01/13/2020 SURGEON: Amando Vaz MD REFERRING PHYSICIAN: Gio Mckeon MD PROCEDURE: J-pouchoscopy with hemostasis. ANESTHESIA: Per Tim Ziegler MD INSTRUMENT: Olympus adult flexible upper endoscope. INDICATIONS: Rectal bleeding. The procedure, risks, benefits, and possible consequences, including hemorrhage, aspiration, perforation and infection, and alternative treatments, were explained to the patient/legal guardian by Dr. Amando Vaz and the patient/legal guardian understood and accepted these risks. PROCEDURE IN DETAIL: After informed consent was obtained and the patient was adequately sedated, first rectal exam was performed, which showed stenotic anus. Then, the upper scope was advanced from the rectum into about 20 cm from the anal verge. The patient had severe inflammation. From the site we started to examine up to about 20 cm, there were multiple dangelo. There was oozing blood from most probably ischemic ulceration. At this time, we used an APC to cauterize the areas, which were oozing. Also, the patient has some ulcerations, most probably again ischemic ulcerations. No obvious mass or polyp was seen. SUMMARY OF FINDINGS: J-pouchoscopy with evidence of multiple dangelo, possible ischemic ulcerations, and oozing blood, status post hemostasis. RECOMMENDATIONS: Hemoglobin and hematocrit to be followed closely. Consider enema nightly. We will follow and make further recommendations as we go along. I want to thank Dr. Gio Mckeon for this kind referral. Amando Vaz M.D. DR: ANGELA JOB#: [id number] CC: Gio Mckeon M.D.; Fax#: [phone]
--- NOTE | 2020-01-13 19:35 | NUR ---
NURSE NOTES: received pt and report from VARGAS Brooks. Patient alert and oriented x4 with no acute s/s of distress. Pt with complaint of pain, will give pain meds when due. Hilario noted and draining. PICC line noted and running fluids as ordered. surgical dressing clean dry and intact. dani ileo noted and draining. plan of care discussed.
[2020-01-13] MEDS: Dyna-Hex 2% Top Sol 2oz TOPIC SCH (19:46)
[2020-01-13] MEDS: Fat Emulsion Iv 20% 240 ML in Tpn 1,680 ML IV SCH (19:47)
--- NOTE | 2020-01-13 19:48 | NUR ---
NURSE HAND-OFF: Important Events on Shift: POUCH ENDOSCOPY, POOR APPETITE. Patient Status: STABLE Diet: FULL Pending Orders: N/A Pending Results/Labs:N/A Pending MD notification:N/A Latest Vital Signs: Temperature 97.6 , Pulse 90 , B/P 108 /58 , Respiratory Rate 18 , O2 SAT 95 , Room Air, O2 Flow Rate 3 . Vital Sign Comment: STABLE Latest Jimenez Fall Score: 50 Fall Risk: High Risk Safety Measures: Call light Within Reach, Bed Alarm Zone 1, Side Rails Side Rails x2, Bed position Low and Locked. Fall Precautions: Door Sign Patient Fall Education Report given to SARA ORANTES RN.
--- NOTE | 2020-01-13 20:30 | NUR ---
NURSE NOTES: charge nurse notified me patient vomited about 50ml of green emesis. Pt claimed to be nauseous. will administer zofran and follow up.
--- NOTE | 2020-01-13 21:00 | NUR ---
NURSE NOTES: patient no longer nauseated after dose of zofran given
[2020-01-13] MEDS: QUEtiapine 200mg tab ORAL SCH (21:53)
[2020-01-13] MEDS: Mesalamine Enema 4gm/60ml RECTAL SCH (21:54)
[2020-01-13] MEDS: HydrOXYzine tab 25mg tab ORAL PRN (22:00)
[2020-01-14] VITALS: BP 95/66
[2020-01-14] MEDS: HYDROmorphone 1mg/ml Carpuject SUBQ PRN ×4 (03:03→20:41)
[2020-01-14 04:00] VITALS: BP 107/68
[2020-01-14] MEDS: DiphenhydrAMINE 50mg/ml Inj IVP PRN ×3 (04:16→17:59)
[2020-01-14 05:28] LABS: BASOPHILS % (AUTO) 1.1 % (0.0-2.0); EOSINOPHILS % (AUTO) 12.6 % (0.0-3.0); HEMATOCRIT 28.3 % (37.0-47.0); HEMOGLOBIN 9.6 G/DL (12.0-16.0); LYMPHOCYTES % (AUTO) 17.3 % (20.0-45.0); MEAN CORPUSCULAR VOLUME 89 FL (80-99); MONOCYTES % (AUTO) 7.4 % (1.0-10.0); NEUTROPHILS % (AUTO) 61.6 % (45.0-75.0); PLATELET COUNT 503 K/UL (150-450); RED BLOOD COUNT 3.19 M/UL (4.20-5.40); RED CELL DISTRIBUTION WIDTH 13.9 % (11.6-14.8); WHITE BLOOD COUNT 10.4 K/UL (4.8-10.8)
--- NOTE | 2020-01-14 05:30 | NUR ---
NURSE NOTES: surgical dressing changed. old dressing with serous drainage, minimal to moderate saturation. applied 4x4, abd, and paper tape over surgical site. patient tolerated procedure well with no c/o pain and no s/s of acute distress.
[2020-01-14 05:47] LABS: ALBUMIN 1.9 G/DL (3.4-5.0); ALBUMIN/GLOBULIN RATIO 0.4 (1.0-2.7); BILIRUBIN,TOTAL 0.2 MG/DL (0.2-1.0); CALCIUM 8.3 MG/DL (8.5-10.1); CREATININE 1.1 MG/DL (0.55-1.30); PHOSPHORUS 3.9 MG/DL (2.5-4.9); POTASSIUM 3.9 MMOL/L (3.5-5.1)
[2020-01-14] MEDS: NovoLOG Insulin Flexpen SUBQ SCH ×4 (06:00→18:00)
--- NOTE | 2020-01-14 07:10 | NUR ---
NURSE NOTES: Handoff received from Angel Luis RN. Patient is awake and alert, no signs of distress noted, breathing is even and unlabored on room air. KELLEE PICC is patent and running TPN as ordered. Caban catheter is patent and draining to gravity. Bed is low and locked, side rails up x2, call light is within reach.
--- NOTE | 2020-01-14 07:15 | NUR ---
NURSE HAND-OFF: Important Events on Shift: surgical dressing change, pain and nausea management, itching management Patient Status: stable Diet: full liquid Pending Orders: na Pending Results/Labs: na Pending MD notification: na Latest Vital Signs: Temperature 98.9 , Pulse 101 , B/P 107 /68 , Respiratory Rate 17 , O2 SAT 94 , Room Air, O2 Flow Rate 3 . Vital Sign Comment: stable throughout shift Latest Jimenez Fall Score: 50 Fall Risk: High Risk Safety Measures: Call light Within Reach, Bed Alarm Zone 1, Side Rails Side Rails x2, Bed position Low and Locked. Fall Precautions: Door Sign Patient Fall Education Report given to VARGAS Goldstein.
[2020-01-14 08:00] VITALS: BP 125/76
[2020-01-14] MEDS: Pramipexole 0.5mg tab ORAL SCH ×2 (08:03→17:52)
[2020-01-14 12:00] VITALS: BP 130/72
--- NOTE | 2020-01-14 13:17 | General Progress Note ---
Progress Note Progress Note AVSS Hungry at times. Small emesis last night Abdomen soft, 1cm opening in incision - probes 1cm to abd.wall closure, serous drainage decreased amounts Urine 2100 Ileostomy 685 labs all stable Imp; Improved Plan: BCIR diet Mesalamine rectal enemas to J pouch qhs continue TPN until eating satisf. amount Gio Mckeon MD Jan 14, 2020 13:17
--- NOTE | 2020-01-14 14:16 | General Progress Note ---
Subjective ROS Limited/Unobtainable: Yes Allergies: Coded Allergies: AMPICILLIN (Verified Allergy, Unknown, 12/17/19) TETRACYCLINE (Verified Allergy, Unknown, 12/17/19) Objective Last 24 Hour Vital Signs Date Time Temp Pulse Resp B/P (MAP) Pulse Ox O2 Delivery O2 Flow Rate FiO2 01/14/20 09:30 95 Room Air 21 01/14/20 08:32 98.9 01/14/20 08:00 98.6 92 21 125/76 (92) 98 01/14/20 04:00 98.9 101 17 107/68 (81) 94 01/14/20 00:00 98.8 100 16 95/66 (76) 93 01/13/20 21:00 Room Air 01/13/20 20:00 99.3 97 17 114/72 (86) 94 01/13/20 19:28 95 Room Air 21 01/13/20 16:54 97.6 01/13/20 16:00 98.1 90 18 108/58 (75) 97 Intake and Output 01/13/20 01/14/20 19:00 07:00 Intake Total 2560 ml 1120 ml Output Total 1125 ml 1710 ml Balance 1435 ml -590 ml Intake Oral 1200 ml 400 ml IV Total 1360 ml 720 ml Output Urine Total 800 ml 1300 ml Emesis 50 ml Other 325 ml 360 ml Laboratory Tests 01/13/20 16:50: POC Whole Blood Glucose 142H 01/14/20 00:10: POC Whole Blood Glucose 115H 01/14/20 04:50: White Blood Count 10.4, Red Blood Count 3.19L, Hemoglobin 9.6L, Hematocrit 28.3L , Mean Corpuscular Volume 89, Mean Corpuscular Hemoglobin 30.1, Mean Corpuscular Hemoglobin Concent 33.9, Red Cell Distribution Width 13.9, Platelet Count 503H, Mean Platelet Volume 6.3L, Neutrophils (%) (Auto) 61.6, Lymphocytes (%) (Auto) 17.3L, Monocytes (%) (Auto) 7.4, Eosinophils (%) (Auto) 12.6H, Basophils (%) (Auto) 1.1, Sodium Level 130L, Potassium Level 3.9, Chloride Level 95L, Carbon Dioxide Level 29, Anion Gap 7, Blood Urea Nitrogen 28H, Creatinine 1.1, Estimat Glomerular Filtration Rate 50.7, Glucose Level 125H, Calcium Level 8.3L, Phosphorus Level 3.9, Magnesium Level 1.9, Total Bilirubin 0.2, Aspartate Amino Transf (AST/SGOT) 17, Alanine Aminotransferase (ALT/SGPT) 16, Alkaline Phosphatase 154H, Total Protein 6.3L, Albumin 1.9L, Globulin 4.4, Albumin/Globulin Ratio 0.4L 01/14/20 05:03: POC Whole Blood Glucose 126H 01/14/20 12:23: POC Whole Blood Glucose 129H Height (Feet): 5 Height (Inches): 5.00 Weight (Pounds): 137 General Appearance: no apparent distress EENT: normal ENT inspection Neck: supple Cardiovascular: normal rate Respiratory/Chest: decreased breath sounds Abdomen: normal bowel sounds, soft, hypoactive bowel sounds, tender Extremities: non-tender Assessment/Plan Problem List: (1) Failed Ileocecal Pouch (2) Leg edema, left ICD Codes: R60.0 - Localized edema SNOMED: 871999042 (3) Abdominal pain ICD Codes: R10.9 - Unspecified abdominal pain SNOMED: 37635417 (4) Colostomy and enterostomy complications SNOMED: 165949881 (5) Ulcerative colitis ICD Codes: K51.90 - Ulcerative colitis, unspecified, without complications SNOMED: 16090782 Assessment/Plan: s/p J- pouchoscopy and hemostasis agree with ganga on TPN fu surg recs fu labs will fu Amando Vaz MD Jan 14, 2020 14:16
--- NOTE | 2020-01-14 15:56 | NUR ---
CASE MANAGEMENT: REVIEW 01/14/2020 SI:S/P POUCHOSCOPY + ENTEROSCOPY W/ABLATION BLEEDING/OOZING FROM SURGICAL SITE . LOWER EXTREMITY EDEMA . ANEMIA. POUCHITIS . MALFUNCTION ENTEROSTOMY POUCH 98.9 101 17 107/68 94% ON RA H/H 9.6/28.3 PLT 503 NA+ 130 BUN 28 alb 1.9 IS:IV TPN PROTOCOL IV AMIKACIN Q36HR SEROQUEL PO QHS MED/SURG PLAN: START ON [facility]IR DIET CASE MANAGEMENT: REVIEW 01/13/2020 SI:BLEEDING/OOZING FROM SURGICAL SITE . LOWER EXTREMITY EDEMA . ANEMIA. POUCHITIS . MALFUNCTION ENTEROSTOMY POUCH 98.8 87 18 108/66 95% ON RA PLT 575 NA+ 128 BUN 30 IS;IN SURGERY FOR POUCHOSCOPY + ENTEROSCOPY W/ABLATION IV TPN PROTOCOL IV FLAGYL TID IV AMIKACIN Q36HR SEROQUEL PO QHS MED/SURG PLAN OF CARE: NPO
[2020-01-14 16:00] VITALS: BP 124/71
--- NOTE | 2020-01-14 17:35 | Pulmonology Progress Note ---
Subjective ROS Limited/Unobtainable: Yes Constitutional: Denies: fever HEENT: Repors: no symptoms Respiratory: Reports: no symptoms Cardiovascular: Reports: no symptoms Gastrointestinal/Abdominal: Denies: nausea, vomiting Genitourinary: Reports: no symptoms Psychiatric: Denies: depression Skin: Denies: rash Musculoskeletal: Denies: pain Allergies: Coded Allergies: AMPICILLIN (Verified Allergy, Unknown, 12/17/19) TETRACYCLINE (Verified Allergy, Unknown, 12/17/19) Subjective comfortable no distress no sob CT completed Objective Last 24 Hour Vital Signs Date Time Temp Pulse Resp B/P (MAP) Pulse Ox O2 Delivery O2 Flow Rate FiO2 01/14/20 14:30 98.9 01/14/20 12:00 97.3 70 21 130/72 (91) 97 01/14/20 09:30 95 Room Air 21 01/14/20 08:32 98.9 01/14/20 08:00 98.6 92 21 125/76 (92) 98 01/14/20 04:00 98.9 101 17 107/68 (81) 94 01/14/20 00:00 98.8 100 16 95/66 (76) 93 01/13/20 21:00 Room Air 01/13/20 20:00 99.3 97 17 114/72 (86) 94 01/13/20 19:28 95 Room Air 21 Intake and Output 01/13/20 01/14/20 19:00 07:00 Intake Total 2560 ml 1120 ml Output Total 1125 ml 1710 ml Balance 1435 ml -590 ml Intake Oral 1200 ml 400 ml IV Total 1360 ml 720 ml Output Urine Total 800 ml 1300 ml Emesis 50 ml Other 325 ml 360 ml General Appearance: no acute distress Respiratory: chest wall non-tender, normal breath sounds, no respiratory distress, no accessory muscle use Cardiovascular: normal peripheral pulses, normal rate, regular rhythm, no gallop/murmur Abdomen: normal bowel sounds, soft, non tender, non distended Extremities: no cyanosis, no clubbing, no edema Microbiology Date/Time Source Procedure Growth Status 01/12/20 11:28 Abdomen Gram Stain - Final Resulted 01/12/20 11:28 Wound Culture - Preliminary Gram Negative Bacillus 1 Gram Negative Bacillus 2 Resulted Laboratory Tests 01/14/20 00:10: POC Whole Blood Glucose 115H 01/14/20 04:50: White Blood Count 10.4, Red Blood Count 3.19L, Hemoglobin 9.6L, Hematocrit 28.3L , Mean Corpuscular Volume 89, Mean Corpuscular Hemoglobin 30.1, Mean Corpuscular Hemoglobin Concent 33.9, Red Cell Distribution Width 13.9, Platelet Count 503H, Mean Platelet Volume 6.3L, Neutrophils (%) (Auto) 61.6, Lymphocytes (%) (Auto) 17.3L, Monocytes (%) (Auto) 7.4, Eosinophils (%) (Auto) 12.6H, Basophils (%) (Auto) 1.1, Sodium Level 130L, Potassium Level 3.9, Chloride Level 95L, Carbon Dioxide Level 29, Anion Gap 7, Blood Urea Nitrogen 28H, Creatinine 1.1, Estimat Glomerular Filtration Rate 50.7, Glucose Level 125H, Calcium Level 8.3L, Phosphorus Level 3.9, Magnesium Level 1.9, Total Bilirubin 0.2, Aspartate Amino Transf (AST/SGOT) 17, Alanine Aminotransferase (ALT/SGPT) 16, Alkaline Phosphatase 154H, Total Protein 6.3L, Albumin 1.9L, Globulin 4.4, Albumin/Globulin Ratio 0.4L 01/14/20 05:03: POC Whole Blood Glucose 126H 01/14/20 12:23: POC Whole Blood Glucose 129H Current Medications Medications (Trade) Dose Ordered Sig/Margarette Route PRN Reason Start Time Stop Time Status Last Admin Dose Admin Acetaminophen/ Butalbital/ Caffeine (Fioricet) 1 tab Q6H PRN ORAL headache 12/29/19 20:30 01/18/20 20:29 12/30/19 09:04 Al Hydroxide/Mg Hydroxide (Mylanta II) 30 ml Q6H PRN ORAL GAS/DYSPEPSIA 01/05/20 08:45 02/04/20 08:44 Chlorhexidine Gluconate (Patti-Hex 2%) 1 applic DAILY@1999 TOPIC 12/29/19 20:30 03/28/20 20:29 01/13/20 19:46 Clotrimazole (Lotrimin) 1 applic BID TOPIC 12/30/19 09:00 03/20/20 10:29 01/10/20 17:33 Dextrose 1,000 ml @ 0 mls/hr Q24H PRN IV PN interrupted or unavailable 12/29/19 20:30 01/28/20 20:29 Dextrose (Dextrose 50%) 25 ml Q30M PRN IV Hypoglycemia 12/29/19 20:30 03/17/20 19:59 Dextrose (Dextrose 50%) 50 ml Q30M PRN IV Hypoglycemia 12/29/19 20:30 03/17/20 19:59 Diphenhydramine HCl (Benadryl) 25 mg Q4H PRN IVP Itching 12/30/19 21:50 01/29/20 21:49 01/14/20 10:22 Diphenhydramine HCl (Benadryl) 25 mg Q6H PRN ORAL Itching 12/29/19 20:30 01/19/20 20:29 01/11/20 08:37 Fat Emulsion Intravenous 240 ml/Amino Acids/ Electrolytes/ Dextrose 1,920 ml @ 80 mls/hr Q24H IV 01/13/20 20:00 02/12/20 19:59 01/13/20 19:47 Hydromorphone HCl (Dilaudid) 1 mg Q3H PRN SUBQ Severe Breakthru Pain (>7) 01/09/20 09:25 01/16/20 09:24 01/14/20 14:00 Hydroxyzine HCl (Atarax) 50 mg Q6H PRN ORAL Itching 01/02/20 19:15 01/28/20 20:29 01/13/20 22:00 Insulin Aspart (NovoLOG) Q6HR SUBQ 12/30/19 00:00 03/18/20 00:00 01/13/20 17:01 Lansoprazole (Prevacid) 30 mg Q12HR ORAL 01/05/20 21:00 02/04/20 20:59 01/14/20 08:02 Mesalamine (Rowasa) 4 gm BEDTIME RECTAL 01/13/20 21:00 04/12/20 20:59 01/13/20 21:54 Ondansetron HCl (Zofran) 4 mg Q4H PRN IVP Nausea & Vomiting 12/30/19 21:40 01/29/20 21:39 01/14/20 14:00 Oxycodone/ Acetaminophen (Percocet 5-325) 1 tab Q4H PRN ORAL Moderate Pain (Pain Scale 4-6) 01/13/20 08:47 01/20/20 08:46 Phytonadione (Vitamin K) 10 mg ONCE A WEEK SUBQ 01/01/20 09:00 03/24/20 08:59 01/08/20 10:52 Pramipexole (Mirapex) 1 mg TWICE A DAY ORAL 12/30/19 09:00 01/16/20 17:59 01/14/20 08:03 Prochlorperazine (Compazine) 10 mg Q6H PRN IV Nausea & Vomiting 01/05/20 08:45 02/04/20 08:44 01/11/20 16:44 Quetiapine Fumarate (SEROqueL) 200 mg BEDTIME ORAL 12/29/19 21:00 01/31/20 20:59 01/13/20 21:53 Temazepam (RestoriL) 7.5 mg BEDTIME PRN ORAL Insomnia 01/08/20 22:30 01/15/20 22:29 01/13/20 20:59 Assessment/Plan Assessment/Plan IMPRESSION: 1. Status post laparotomy. 2. Ulcerative colitis. 3. Bilateral pleural effusions and atelectasis. minimal 4. anemia 5. severe PCM DISCUSSION: Continue oxygen and pulmonary hygiene as needed monitor for congestion - currently stable Pain control. DVT prophylaxis. GI prophylaxis. incentive missy monitor imaging for change and intervene monitor oxygen needs impression, plan, and exam edited and reviewed in detail care discussed with Jarek Mendoza MD Jan 14, 2020 17:35
--- NOTE | 2020-01-14 18:00 | NUR ---
NURSE NOTES: total ileo 270 total urine 1400 Patient reported pain throughout the day, was medicated as ordered. Patient tolerated BCIR diet well, was able to walk with PT and sit up in chair.
--- NOTE | 2020-01-14 19:30 | NUR ---
HAND-OFF: Report given to Odilia KAYE.
--- NOTE | 2020-01-14 19:31 | NUR ---
NURSE NOTES: Received patient in no apparent distress. A&Ox4. PICC line noted on left upper arm, patent and intact. Caban cath draining well by gravity. Abdomen surgical dressing noted, dry and intact. Narcisa ileo noted and draining well. Bed in lowest position. Call light within reach. Will continue to monitor.
[2020-01-14 20:00] VITALS: BP 130/73
[2020-01-14] MEDS: Dyna-Hex 2% Top Sol 2oz TOPIC SCH (20:31)
[2020-01-14] MEDS: Mesalamine Enema 4gm/60ml RECTAL SCH (20:31)
[2020-01-14] MEDS: Fat Emulsion Iv 20% 240 ML in Tpn 1,680 ML IV SCH (20:35)
--- NOTE | 2020-01-14 21:00 | NUR ---
NURSE NOTES: Patient requested to take Quetiapine at 2200 instead 2100. Abdominal dressing was changed as ordered.
[2020-01-14] MEDS: QUEtiapine 200mg tab ORAL SCH (22:07)
[2020-01-15] VITALS: BP 122/70
[2020-01-15] MEDS: HYDROmorphone 1mg/ml Carpuject SUBQ PRN ×6 (00:20→22:08)
[2020-01-15] MEDS: NovoLOG Insulin Flexpen SUBQ SCH ×5 (00:25→23:52)
[2020-01-15 04:00] VITALS: BP 117/72
--- NOTE | 2020-01-15 06:06 | NUR ---
NURSE NOTES: Abdominal dressing was changed as ordered.
--- NOTE | 2020-01-15 06:21 | NUR ---
NURSE HAND-OFF: Important Events on Shift: No c/o nausea or vomiting during the shift. Pain management. Patient requested ice water without Gatorade. Blood sugar 143 at 2100/ 80 at 0600 Urine output: 1800ml Ileo output: 700ml Patient Status: Stable Diet: BCIR low residue diet Pending Orders: Pending Results/Labs: Pending MD notification: Latest Vital Signs: Temperature 98.2 , Pulse 92 , B/P 117 /72 , Respiratory Rate 18 , O2 SAT 94 , Room Air, O2 Flow Rate 3 . Vital Sign Comment: Latest Jimenez Fall Score: 50 Fall Risk: High Risk Safety Measures: Call light Within Reach, Bed Alarm Zone 1, Side Rails Side Rails x2, Bed position Low and Locked. Fall Precautions: Door Sign Patient Fall Education
[2020-01-15] MEDS: DiphenhydrAMINE 50mg/ml Inj IVP PRN (06:37)
[2020-01-15 07:02] LABS: BASOPHILS % (AUTO) 2.7 % (0.0-2.0); EOSINOPHILS % (AUTO) 11.7 % (0.0-3.0); HEMOGLOBIN 9.8 G/DL (12.0-16.0); LYMPHOCYTES % (AUTO) 27.5 % (20.0-45.0); MEAN CORPUSCULAR VOLUME 89 FL (80-99); MONOCYTES % (AUTO) 9.6 % (1.0-10.0); NEUTROPHILS % (AUTO) 48.5 % (45.0-75.0); PLATELET COUNT 490 K/UL (150-450); RED BLOOD COUNT 3.25 M/UL (4.20-5.40); RED CELL DISTRIBUTION WIDTH 14.6 % (11.6-14.8); WHITE BLOOD COUNT 9.4 K/UL (4.8-10.8)
[2020-01-15 07:31] LABS: ALBUMIN 2.1 G/DL (3.4-5.0); ALBUMIN/GLOBULIN RATIO 0.5 (1.0-2.7); BILIRUBIN,TOTAL 0.2 MG/DL (0.2-1.0); CALCIUM 8.5 MG/DL (8.5-10.1); PHOSPHORUS 3.8 MG/DL (2.5-4.9); POTASSIUM 3.9 MMOL/L (3.5-5.1)
--- NOTE | 2020-01-15 07:31 | NUR ---
HAND-OFF: Report given to John KAYE.
--- NOTE | 2020-01-15 07:46 | NUR ---
NURSE NOTES: Received AM report, pt is siting up in the bed, eating breakfast at this time; tolerates meal well, no acute distress noted. exchanged greetings with pt. call light is within reach, will follow plan of care.
[2020-01-15 08:00] VITALS: BP 111/72
[2020-01-15] MEDS: Pramipexole 0.5mg tab ORAL SCH ×2 (08:50→17:46)
[2020-01-15] MEDS: Phytonadione 10 mg/mL 1ml amp SUBQ SCH (08:51)
--- NOTE | 2020-01-15 09:44 | NUR ---
RD ASSESSMENT & RECOMMENDATIONS SEE CARE ACTIVITY FOR COMPLETE ASSESSMENT DAILY ESTIMATED NEEDS: Needs based on Surgery/ 59kg 25-30 kcals/kg 0065-4804 total kcals 1-2 g protein/kg 59-118 g total protein 25-35 mL/kg 2851-1689 total fluid mLs NUTRITION DIAGNOSIS: Altered GI function R/T h/o UC, total colectomy, admitted w/ failed ileoanal J pouch with abdominal pain and J pouch bleeding as evidenced by s/p resection defunctionalized small bowel and ileoanal J pouch, revision of ileostomy, diet now advanced to BCIR low residue diet, cont on TPN. CURRENT DIET:BCIR LOW RESIDUE DIET + receives Ensure Clear BID PO DIET RECOMMENDATIONS: BCIR Low Residue diet as per MD PARENTERAL NUTRITION RECOMMENDATIONS: D/AA Rate: 70 IL Rate: 10 Total Rate: 80 Volume: 1920 % Dextrose: 16 % AA: 5.0 Energy (kcals/kg): 1730 Protein (g/kg protein): 84 Nonprotein KCALS: 1394 GIR (mg CHO/kg/min): 3.17 % Fat KCALS: 27.7 NCP: N Ratio: 103.7 TPN Comment: - D16% AA 5.0% @ 70ml/hr + IL 20% @ 10ml/hr -> all 3:1, total of 80ml/hr - TPN @ goal provides 100% est kcal/prot needs ( 29kcal/1.42g prot per kg) - TITRATE DOWN TPN BY 50% to 40ml/hr, then DC: pt now on BCIR low residue diet ADDITIONAL RECOMMENDATIONS: * Calibrated bedscale wt or standing wt as able for accurate CBW * Monitor lytes, replete as needed * Monitor LFTs, BGs closely w/ TPN * Ensure Clear BID added to tray (240kcal/8g prot per bottle) -> pt prefers Ensure CLEAR (vs ENLIVE) * Monitor PO intake closely, ability to taper and DC TPN.
[2020-01-15 12:00] VITALS: BP 115/72
--- NOTE | 2020-01-15 13:35 | General Progress Note ---
Progress Note Progress Note AVSS Eating 25% of diet. Abdomen soft, Open wound tunnels under incision - less drainage than prior days Ileostomy stable Urine 3200 Ileostomy 970 CBC stable Na 127 albumin 2.7 Imp: Wound drainage final C&S pending Malnutrition despite TPN Hyponatremia Plan; NS IV 50cc/hour continue TPN wound care q4h am to hs f/u labs Gio Mckeon MD Jan 15, 2020 13:35
--- NOTE | 2020-01-15 13:47 | General Progress Note ---
Subjective ROS Limited/Unobtainable: No Allergies: Coded Allergies: AMPICILLIN (Verified Allergy, Unknown, 12/17/19) TETRACYCLINE (Verified Allergy, Unknown, 12/17/19) Objective Last 24 Hour Vital Signs Date Time Temp Pulse Resp B/P (MAP) Pulse Ox O2 Delivery O2 Flow Rate FiO2 01/15/20 12:00 98.4 91 16 115/72 (86) 95 01/15/20 10:01 98.0 01/15/20 08:00 98.0 89 16 111/72 (85) 95 01/15/20 04:00 98.2 92 18 117/72 (87) 94 01/15/20 00:00 97.8 90 18 122/70 (87) 95 01/14/20 21:00 Room Air 01/14/20 20:10 96 Room Air 21 01/14/20 20:00 98.9 83 18 130/73 (92) 95 01/14/20 16:00 99.1 84 21 124/71 (88) 98 01/14/20 14:30 98.9 Intake and Output 01/14/20 01/15/20 19:00 07:00 Intake Total 1000 ml 1800 ml Output Total 1670 ml 2500 ml Balance -670 ml -700 ml Intake Oral 1000 ml 1000 ml IV Total 800 ml Output Urine Total 1400 ml 1800 ml Other 270 ml 700 ml Laboratory Tests 01/14/20 17:50: POC Whole Blood Glucose 109H 01/15/20 00:13: POC Whole Blood Glucose 143H 01/15/20 05:30: White Blood Count 9.4, Red Blood Count 3.25L, Hemoglobin 9.8L, Hematocrit 29.0L, Mean Corpuscular Volume 89, Mean Corpuscular Hemoglobin 30.2, Mean Corpuscular Hemoglobin Concent 33.9, Red Cell Distribution Width 14.6, Platelet Count 490H, Mean Platelet Volume 5.9L, Neutrophils (%) (Auto) 48.5, Lymphocytes (%) (Auto) 27.5, Monocytes (%) (Auto) 9.6, Eosinophils (%) (Auto) 11.7H, Basophils (%) (Auto) 2.7H, Sodium Level 127L, Potassium Level 3.9, Chloride Level 93L, Carbon Dioxide Level 26, Anion Gap 8, Blood Urea Nitrogen 25H, Creatinine 1.0, Estimat Glomerular Filtration Rate 56.5, Glucose Level 76, Calcium Level 8.5, Phosphorus Level 3.8, Magnesium Level 1.9, Total Bilirubin 0.2, Aspartate Amino Transf (AST/SGOT) 21, Alanine Aminotransferase (ALT/SGPT) 15, Alkaline Phosphatase 165H , Total Protein 6.3L, Albumin 2.1L, Globulin 4.2, Albumin/Globulin Ratio 0.5L 01/15/20 05:33: POC Whole Blood Glucose 80 01/15/20 12:31: POC Whole Blood Glucose 107H Height (Feet): 5 Height (Inches): 5.00 Weight (Pounds): 137 General Appearance: no apparent distress EENT: normal ENT inspection Neck: supple Cardiovascular: normal rate Respiratory/Chest: decreased breath sounds Abdomen: normal bowel sounds, non tender, soft Extremities: non-tender Assessment/Plan Problem List: (1) Failed Ileocecal Pouch (2) Leg edema, left ICD Codes: R60.0 - Localized edema SNOMED: 930636950 (3) Abdominal pain ICD Codes: R10.9 - Unspecified abdominal pain SNOMED: 22328100 (4) Colostomy and enterostomy complications SNOMED: 565672525 (5) Ulcerative colitis ICD Codes: K51.90 - Ulcerative colitis, unspecified, without complications SNOMED: 51316776 Assessment/Plan: s/p J- pouchoscopy and hemostasis agree with Juan on TPN fu surg recs fu labs will fu Amando Vaz MD Jan 15, 2020 13:47
[2020-01-15 16:00] VITALS: BP 117/72
--- NOTE | 2020-01-15 17:17 | Pulmonology Progress Note ---
Subjective ROS Limited/Unobtainable: No Constitutional: Denies: fever HEENT: Repors: no symptoms Respiratory: Reports: no symptoms Cardiovascular: Reports: no symptoms Gastrointestinal/Abdominal: Denies: nausea, vomiting Genitourinary: Reports: no symptoms Psychiatric: Denies: depression Skin: Denies: rash Musculoskeletal: Denies: pain Allergies: Coded Allergies: AMPICILLIN (Verified Allergy, Unknown, 12/17/19) TETRACYCLINE (Verified Allergy, Unknown, 12/17/19) Subjective comfortable no distress no sob CT completed Objective Last 24 Hour Vital Signs Date Time Temp Pulse Resp B/P (MAP) Pulse Ox O2 Delivery O2 Flow Rate FiO2 01/15/20 16:00 98.6 86 16 117/72 (87) 95 01/15/20 12:00 98.4 91 16 115/72 (86) 95 01/15/20 10:01 98.0 01/15/20 08:00 98.0 89 16 111/72 (85) 95 01/15/20 04:00 98.2 92 18 117/72 (87) 94 01/15/20 00:00 97.8 90 18 122/70 (87) 95 01/14/20 21:00 Room Air 01/14/20 20:10 96 Room Air 21 01/14/20 20:00 98.9 83 18 130/73 (92) 95 Intake and Output 01/14/20 01/15/20 19:00 07:00 Intake Total 1000 ml 1800 ml Output Total 1670 ml 2500 ml Balance -670 ml -700 ml Intake Oral 1000 ml 1000 ml IV Total 800 ml Output Urine Total 1400 ml 1800 ml Other 270 ml 700 ml General Appearance: no acute distress Respiratory: chest wall non-tender, normal breath sounds, no respiratory distress, no accessory muscle use Cardiovascular: normal peripheral pulses, normal rate, regular rhythm, no gallop/murmur Abdomen: normal bowel sounds, soft, non tender, non distended Extremities: no cyanosis, no clubbing, no edema Laboratory Tests 01/14/20 17:50: POC Whole Blood Glucose 109H 01/15/20 00:13: POC Whole Blood Glucose 143H 01/15/20 05:30: White Blood Count 9.4, Red Blood Count 3.25L, Hemoglobin 9.8L, Hematocrit 29.0L, Mean Corpuscular Volume 89, Mean Corpuscular Hemoglobin 30.2, Mean Corpuscular Hemoglobin Concent 33.9, Red Cell Distribution Width 14.6, Platelet Count 490H, Mean Platelet Volume 5.9L, Neutrophils (%) (Auto) 48.5, Lymphocytes (%) (Auto) 27.5, Monocytes (%) (Auto) 9.6, Eosinophils (%) (Auto) 11.7H, Basophils (%) (Auto) 2.7H, Sodium Level 127L, Potassium Level 3.9, Chloride Level 93L, Carbon Dioxide Level 26, Anion Gap 8, Blood Urea Nitrogen 25H, Creatinine 1.0, Estimat Glomerular Filtration Rate 56.5, Glucose Level 76, Calcium Level 8.5, Phosphorus Level 3.8, Magnesium Level 1.9, Total Bilirubin 0.2, Aspartate Amino Transf (AST/SGOT) 21, Alanine Aminotransferase (ALT/SGPT) 15, Alkaline Phosphatase 165H , Total Protein 6.3L, Albumin 2.1L, Globulin 4.2, Albumin/Globulin Ratio 0.5L 01/15/20 05:33: POC Whole Blood Glucose 80 01/15/20 12:31: POC Whole Blood Glucose 107H Current Medications Medications (Trade) Dose Ordered Sig/Margarette Route PRN Reason Start Time Stop Time Status Last Admin Dose Admin Acetaminophen/ Butalbital/ Caffeine (Fioricet) 1 tab Q6H PRN ORAL headache 12/29/19 20:30 01/18/20 20:29 12/30/19 09:04 Al Hydroxide/Mg Hydroxide (Mylanta II) 30 ml Q6H PRN ORAL GAS/DYSPEPSIA 01/05/20 08:45 02/04/20 08:44 Chlorhexidine Gluconate (Patti-Hex 2%) 1 applic DAILY@1999 TOPIC 12/29/19 20:30 03/28/20 20:29 01/14/20 20:31 Clotrimazole (Lotrimin) 1 applic BID TOPIC 12/30/19 09:00 03/20/20 10:29 01/15/20 09:59 Dextrose 1,000 ml @ 0 mls/hr Q24H PRN IV PN interrupted or unavailable 12/29/19 20:30 01/28/20 20:29 Dextrose (Dextrose 50%) 25 ml Q30M PRN IV Hypoglycemia 12/29/19 20:30 03/17/20 19:59 Dextrose (Dextrose 50%) 50 ml Q30M PRN IV Hypoglycemia 12/29/19 20:30 03/17/20 19:59 Diphenhydramine HCl (Benadryl) 25 mg Q4H PRN IVP Itching 12/30/19 21:50 01/29/20 21:49 01/15/20 06:37 Diphenhydramine HCl (Benadryl) 25 mg Q6H PRN ORAL Itching 12/29/19 20:30 01/19/20 20:29 01/11/20 08:37 Fat Emulsion Intravenous 240 ml/Amino Acids/ Electrolytes/ Dextrose 1,920 ml @ 80 mls/hr Q24H IV 01/13/20 20:00 02/12/20 19:59 01/14/20 20:35 Hydromorphone HCl (Dilaudid) 1 mg Q3H PRN SUBQ Severe Breakthru Pain (>7) 01/15/20 13:06 01/22/20 13:05 01/15/20 14:00 Hydroxyzine HCl (Atarax) 50 mg Q6H PRN ORAL Itching 01/02/20 19:15 01/28/20 20:29 01/13/20 22:00 Insulin Aspart (NovoLOG) Q6HR SUBQ 12/30/19 00:00 03/18/20 00:00 01/15/20 00:25 Lansoprazole (Prevacid) 30 mg Q12HR ORAL 01/05/20 21:00 02/04/20 20:59 01/15/20 08:51 Mesalamine (Rowasa) 4 gm BEDTIME RECTAL 01/13/20 21:00 04/12/20 20:59 01/14/20 20:31 Ondansetron HCl (Zofran) 4 mg Q4H PRN IVP Nausea & Vomiting 12/30/19 21:40 01/29/20 21:39 01/15/20 16:33 Oxycodone/ Acetaminophen (Percocet 5-325) 1 tab Q4H PRN ORAL Moderate Pain (Pain Scale 4-6) 01/13/20 08:47 01/20/20 08:46 Phytonadione (Vitamin K) 10 mg ONCE A WEEK SUBQ 01/01/20 09:00 03/24/20 08:59 01/15/20 08:51 Pramipexole (Mirapex) 1 mg TWICE A DAY ORAL 01/15/20 18:00 02/02/20 02:59 Prochlorperazine (Compazine) 10 mg Q6H PRN IV Nausea & Vomiting 01/05/20 08:45 02/04/20 08:44 01/11/20 16:44 Quetiapine Fumarate (SEROqueL) 200 mg BEDTIME ORAL 12/29/19 21:00 01/31/20 20:59 01/14/20 22:07 Sodium Chloride 1,000 ml @ 50 mls/hr Q20H IV 01/15/20 13:15 02/14/20 13:14 01/15/20 13:51 Temazepam (RestoriL) 7.5 mg BEDTIME PRN ORAL Insomnia 01/15/20 13:15 01/22/20 13:14 Assessment/Plan Assessment/Plan IMPRESSION: 1. Status post laparotomy. 2. Ulcerative colitis. 3. Bilateral pleural effusions and atelectasis. minimal 4. anemia 5. severe PCM DISCUSSION: Continue oxygen and pulmonary hygiene as needed monitor for congestion - currently stable Pain control. DVT prophylaxis. GI prophylaxis. incentive missy monitor imaging for change and intervene monitor oxygen needs impression, plan, and exam edited and reviewed in detail care discussed with Jarek Mendoza MD Jan 15, 2020 17:17
--- NOTE | 2020-01-15 18:51 | Infectious Diseases Prog Note ---
Assessment/Plan Assessment/Plan ASSESSMENT AND PLAN: 1. e.coli uti, morganella uti, left leg cellulitis, ? reaction/atypical drug rash to aztreonam, allergies - ampicillin, tetracycline s/p surgery on 12/29/19 surgical abdominal fluid with e.coli - s-amikacin initial wound drainage culture with esbl e.coli and proteus - 2 + - sensitive to amikacin, f/u wound culture with 1 + e.coli/proteus fungemia risk, TPN - s/p amikacin, flagyl, micafungin for 14 days post-op - favor not to retreat f/u wound culture since same organisms, less drainage off abx and already received 2 weeks tx - risks > benefits - CT abdomen and pelvis - no abscess - monitor labs - leukocytosis resolved - management per Dr. Mckeon - communicated with Dr. Mckeon 2. skin care per protocol - ? fungal component, on clotrimazole cream 3. 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 4. History of Narcisa ileostomy. 5. History of ulcerative colitis. 6. History of multiple abdominal surgeries. 7. History of cholecystectomy. 8. History of peristomal hernia and mesh. 9. History of colectomy. 10. Continue treatment per Dr. Mckeon and consultants. 11. Allergies to ampicillin, tetracycline. She gets hives with ampicillin. 12. Social history is negative. 13. Family history is noncontributory. 14. MAR is noted. 15. Case was discussed with RN. 16. Case was discussed with Dr. Mckeon. 17. Case was discussed with the patient. Subjective Constitutional: Denies: fever HEENT: Denies: congestion Respiratory: Denies: shortness of breath Cardiovascular: Denies: chest pain Gastrointestinal/Abdominal: Reports: other - less abdominal wound drainage ; Denies: nausea, vomiting, diarrhea Neurologic: Denies: headache Psychiatric: Denies: depression Skin: Denies: rash Hematologic: Denies: bleeding Musculoskeletal: Denies: pain Allergies: Coded Allergies: AMPICILLIN (Verified Allergy, Unknown, 12/17/19) TETRACYCLINE (Verified Allergy, Unknown, 12/17/19) Objective Last 24 Hour Vital Signs Date Time Temp Pulse Resp B/P (MAP) Pulse Ox O2 Delivery O2 Flow Rate FiO2 01/15/20 16:00 98.6 86 16 117/72 (87) 95 01/15/20 12:00 98.4 91 16 115/72 (86) 95 01/15/20 10:01 98.0 01/15/20 08:00 98.0 89 16 111/72 (85) 95 01/15/20 04:00 98.2 92 18 117/72 (87) 94 01/15/20 00:00 97.8 90 18 122/70 (87) 95 01/14/20 21:00 Room Air 01/14/20 20:10 96 Room Air 21 01/14/20 20:00 98.9 83 18 130/73 (92) 95 Height (Feet): 5 Height (Inches): 5.00 Weight (Pounds): 137 General Appearance: no acute distress HEENT: normocephalic, atraumatic, anicteric, mucous membranes moist Respiratory/Chest: lungs clear, normal breath sounds, no respiratory distress, no accessory muscle use Cardiovascular: normal rate, regular rhythm, no gallop/murmur, no JVD Abdomen: normal bowel sounds, soft, non tender, no organomegaly, non distended Genitourinary: other - no folety Extremities: no cyanosis Skin: no rash 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 No focal airspace consolidation. No effusions. Normal heart size Impression: Acuity indeterminate mild interstitial disease. Correlate with clinical findings. No focal infiltrates CT abdomen and pelvis: Impression: Postsurgical changes, as described, including right lower quadrant simple ileostomy, prior total colectomy, and J-pouch. There is abundant anterior pelvic apparent defunctionalized small bowel which appears to be in continuity with and ileoanal J-pouch remnant. Most likely, this just represents old isolated small bowel, but the possibility of any of this representing either tumor or abscess is not completely excludable. Small parastomal hernia within the right lower quadrant ileostomy. This appears to be nonobstructive. Equivocal mild wall thickening of left upper quadrant jejunal loops. Enteritis is possible and correlation with clinical findings is recommended Age-indeterminate L2 vertebral body compression fracture deformity. Suspect old. Consider MRI if clinically relevant Prior cholecystectomy Inferior vena cava filter Findings discussed by phone Chest x-ray - 12/29/19 - FINDINGS: Lungs: Retrocardiac atelectasis versus infiltrate. No consolidation or interstitial edema. Pleural space: Trace left pleural effusion. Heart: Unremarkable. No cardiomegaly. Bones/joints: Unremarkable. Tubes, lines and devices: Endotracheal tube terminates 3 cm above the kyung. Left upper extremity PICC line terminates within the SVC. IMPRESSION: 1. Endotracheal tube terminates 3 cm above the kyung. 2. Left upper extremity PICC line terminates within the SVC. 3. Retrocardiac atelectasis versus infiltrate. 4. Trace left pleural effusion. Chest x-ray - 12/31/19 - Procedure: XRAY Chest 1v Procedure: XRAY Chest 1v Reason for study: Shortness of breath. Comparison films: 12/29/2019. FINDINGS: Endotracheal tube has been removed. Left PICC line remains in place. There is slight worsening of congestion and edema. Cardiac and mediastinal silhouette are within normal limits. CP angles are sharp. The bony thorax appear unremarkable. IMPRESSION: Slight worsening of congestion and edema. Chest x-ray - 01/02/20 - Procedure: XRAY Chest 1v Indication: Reason For Exam: SOB Technique: Single AP view of the chest. Comparison: Chest radiograph dated 12/31/2019 Findings: The cardiomediastinal silhouette is unchanged in appearance. No new airspace consolidation. Stable pulmonary vascular congestion. Demonstration of streaky retrocardiac airspace opacity. No pneumothorax or pleural effusion. Unchanged left PICC. IMPRESSION: No significant change from prior examination. CT abdomen and pelvis- 01/06/20 - Impression: Postsurgical changes, as described. Small amount of fluid and gas is seen along the incision no definite incisional. Incidental abscess demonstrated. Slow traversal of contrast small bowel but no definite evidence of small bowel obstruction Interim Caban catheter placement Other findings as noted, including stable old healed fracture deformity left pubic bone, inferior vena cava filter, prior cholecystectomy, L2 vertebral body compression fracture CT - abdomen and pelvis - 01/12/20 - Impression: Postsurgical changes, as described Small amount of fluid just deep to the right side of the inferior rectus abdominis muscle in the anterior pelvis, without definite contrast extravasation to suggest enteric fistula. Significance uncertain. Small amount of gas and fluid within the incision again demonstrated. No e vidence of small bowel obstruction or graft bilateral small pleural effusions and posterior compressive pulmonary parenchymal atelectasis Other findings as noted, including atrophic spleen, prior cholecystectomy, inferior vena cava filter, Caban catheter, L2 vertebral body compression fracture deformity, degenerative spondylosis CT abdomen and pelvis - 01/12/20 - Impression: Postsurgical changes, as described Small amount of fluid just deep to the right side of the inferior rectus abdominis muscle in the anterior pelvis, without definite contrast extravasation to suggest enteric fistula. Significance uncertain. Small amount of gas and fluid within the incision again demonstrated. No evidence of small bowel obstruction or graft bilateral small pleural effusions and posterior compressive pulmonary parenchymal atelectasis Other findings as noted, including atrophic spleen, prior cholecystectomy, inferior vena cava filter, Caban catheter, L2 vertebral body compression fracture deformity, degenerative spondylosis Microbiology Date/Time Source Procedure Growth Status 01/12/20 11:28 Abdomen Gram Stain - Final Resulted 01/12/20 11:28 Wound Culture - Preliminary Escherichia Coli Proteus Mirabilis Resulted 01/05/20 00:48 Stool Clostridium difficile Toxin Assay - Final Complete 01/03/20 16:00 Other Gram Stain - Final Complete 01/03/20 16:00 Wound Culture - Final Escherichia Coli Proteus Mirabilis Esbl Complete 01/01/20 16:00 Blood Blood Culture - Final NO GROWTH AFTER 5 DAYS Complete 12/27/19 11:13 Nasopharynx SARS-CoV-2 RdRp Gene Assay - Final Complete 12/22/19 19:30 Urine,Clean Catch Urine Culture - Final Morganella Morg Spp Morganii Complete Laboratory Tests Test 01/15/20 00:13 01/15/20 05:30 01/15/20 05:33 01/15/20 12:31 POC Whole Blood Glucose 143 MG/DL (74-106) H 80 MG/DL (74-106) 107 MG/DL (74-106) H White Blood Count 9.4 K/UL (4.8-10.8) Red Blood Count 3.25 M/UL (4.20-5.40) L Hemoglobin 9.8 G/DL (12.0-16.0) L Hematocrit 29.0 % (37.0-47.0) L Mean Corpuscular Volume 89 FL (80-99) Mean Corpuscular Hemoglobin 30.2 PG (27.0-31.0) Mean Corpuscular Hemoglobin Concent 33.9 G/DL (32.0-36.0) Red Cell Distribution Width 14.6 % (11.6-14.8) Platelet Count 490 K/UL (150-450) H Mean Platelet Volume 5.9 FL (6.5-10.1) L Neutrophils (%) (Auto) 48.5 % (45.0-75.0) Lymphocytes (%) (Auto) 27.5 % (20.0-45.0) Monocytes (%) (Auto) 9.6 % (1.0-10.0) Eosinophils (%) (Auto) 11.7 % (0.0-3.0) H Basophils (%) (Auto) 2.7 % (0.0-2.0) H Sodium Level 127 MMOL/L (136-145) L Potassium Level 3.9 MMOL/L (3.5-5.1) Chloride Level 93 MMOL/L (98-107) L Carbon Dioxide Level 26 MMOL/L (21-32) Anion Gap 8 mmol/L (5-15) Blood Urea Nitrogen 25 mg/dL (7-18) H Creatinine 1.0 MG/DL (0.55-1.30) Estimat Glomerular Filtration Rate 56.5 mL/min (>60) Glucose Level 76 MG/DL (74-106) Calcium Level 8.5 MG/DL (8.5-10.1) Phosphorus Level 3.8 MG/DL (2.5-4.9) Magnesium Level 1.9 MG/DL (1.8-2.4) Total Bilirubin 0.2 MG/DL (0.2-1.0) Aspartate Amino Transf (AST/SGOT) 21 U/L (15-37) Alanine Aminotransferase (ALT/SGPT) 15 U/L (12-78) Alkaline Phosphatase 165 U/L (46-116) H Total Protein 6.3 G/DL (6.4-8.2) L Albumin 2.1 G/DL (3.4-5.0) L Globulin 4.2 g/dL Albumin/Globulin Ratio 0.5 (1.0-2.7) L Test 01/15/20 17:51 POC Whole Blood Glucose 156 MG/DL (74-106) H Current Medications Medications (Trade) Dose Ordered Sig/Margarette Route PRN Reason Start Time Stop Time Status Last Admin Dose Admin Acetaminophen/ Butalbital/ Caffeine (Fioricet) 1 tab Q6H PRN ORAL headache 12/29/19 20:30 01/18/20 20:29 12/30/19 09:04 Al Hydroxide/Mg Hydroxide (Mylanta II) 30 ml Q6H PRN ORAL GAS/DYSPEPSIA 01/05/20 08:45 02/04/20 08:44 Chlorhexidine Gluconate (Patti-Hex 2%) 1 applic DAILY@1999 TOPIC 12/29/19 20:30 03/28/20 20:29 01/14/20 20:31 Clotrimazole (Lotrimin) 1 applic BID TOPIC 12/30/19 09:00 03/20/20 10:29 01/15/20 18:16 Dextrose 1,000 ml @ 0 mls/hr Q24H PRN IV PN interrupted or unavailable 12/29/19 20:30 01/28/20 20:29 Dextrose (Dextrose 50%) 25 ml Q30M PRN IV Hypoglycemia 12/29/19 20:30 03/17/20 19:59 Dextrose (Dextrose 50%) 50 ml Q30M PRN IV Hypoglycemia 12/29/19 20:30 03/17/20 19:59 Diphenhydramine HCl (Benadryl) 25 mg Q4H PRN IVP Itching 12/30/19 21:50 01/29/20 21:49 01/15/20 06:37 Diphenhydramine HCl (Benadryl) 25 mg Q6H PRN ORAL Itching 12/29/19 20:30 01/19/20 20:29 01/15/20 18:16 Fat Emulsion Intravenous 240 ml/Amino Acids/ Electrolytes/ Dextrose 1,920 ml @ 80 mls/hr Q24H IV 01/13/20 20:00 02/12/20 19:59 01/14/20 20:35 Hydromorphone HCl (Dilaudid) 1 mg Q3H PRN SUBQ Severe Breakthru Pain (>7) 01/15/20 13:06 01/22/20 13:05 01/15/20 17:46 Hydroxyzine HCl (Atarax) 50 mg Q6H PRN ORAL Itching 01/02/20 19:15 01/28/20 20:29 01/13/20 22:00 Insulin Aspart (NovoLOG) Q6HR SUBQ 12/30/19 00:00 03/18/20 00:00 01/15/20 18:16 Lansoprazole (Prevacid) 30 mg Q12HR ORAL 01/05/20 21:00 02/04/20 20:59 01/15/20 08:51 Mesalamine (Rowasa) 4 gm BEDTIME RECTAL 01/13/20 21:00 04/12/20 20:59 01/14/20 20:31 Ondansetron HCl (Zofran) 4 mg Q4H PRN IVP Nausea & Vomiting 12/30/19 21:40 01/29/20 21:39 01/15/20 16:33 Oxycodone/ Acetaminophen (Percocet 5-325) 1 tab Q4H PRN ORAL Moderate Pain (Pain Scale 4-6) 01/13/20 08:47 01/20/20 08:46 Phytonadione (Vitamin K) 10 mg ONCE A WEEK SUBQ 01/01/20 09:00 03/24/20 08:59 01/15/20 08:51 Pramipexole (Mirapex) 1 mg TWICE A DAY ORAL 01/15/20 18:00 02/02/20 02:59 01/15/20 17:46 Prochlorperazine (Compazine) 10 mg Q6H PRN IV Nausea & Vomiting 01/05/20 08:45 02/04/20 08:44 01/11/20 16:44 Quetiapine Fumarate (SEROqueL) 200 mg BEDTIME ORAL 12/29/19 21:00 01/31/20 20:59 01/14/20 22:07 Sodium Chloride 1,000 ml @ 50 mls/hr Q20H IV 01/15/20 13:15 02/14/20 13:14 01/15/20 13:51 Temazepam (RestoriL) 7.5 mg BEDTIME PRN ORAL Insomnia 01/15/20 13:15 01/22/20 13:14 Kevan Burgess MD Jan 15, 2020:51
--- NOTE | 2020-01-15 19:45 | NUR ---
NURSE NOTES: Received report from John KAYE. Rounding is done. Patient is a/o x4. Denied any pain at this time. No any distress noted at this time. Breathing is even and unlabored. PICC line is intact and TPN and IV fluid are running. Caban is in place and draining to gravity. Dressing on abdomen is c/d/i. Narcisa Ileostomy is in place and c/d/i. Provided all safety measures. Bed is on alarm, locked, and lowest position. Call light within reach. Will continue to monitor.
--- NOTE | 2020-01-15 19:54 | NUR ---
HAND-OFF: Report given to
[2020-01-15 20:00] VITALS: BP 123/61
[2020-01-15] MEDS: Dyna-Hex 2% Top Sol 2oz TOPIC SCH (20:40)
[2020-01-15] MEDS: Fat Emulsion Iv 20% 240 ML in Tpn 1,680 ML IV SCH (20:44)
[2020-01-15] MEDS: Mesalamine Enema 4gm/60ml RECTAL SCH (20:46)
[2020-01-15] MEDS: QUEtiapine 200mg tab ORAL SCH (21:55)
[2020-01-16] VITALS: BP 99/63
[2020-01-16 04:00] VITALS: BP 104/62
[2020-01-16] MEDS: NovoLOG Insulin Flexpen SUBQ SCH ×3 (06:00→18:00)
[2020-01-16 06:24] LABS: BASOPHILS % (AUTO) 1.2 % (0.0-2.0); EOSINOPHILS % (AUTO) 10.7 % (0.0-3.0); HEMATOCRIT 28.7 % (37.0-47.0); HEMOGLOBIN 9.7 G/DL (12.0-16.0); LYMPHOCYTES % (AUTO) 27.7 % (20.0-45.0); MEAN CORPUSCULAR VOLUME 89 FL (80-99); MONOCYTES % (AUTO) 7.7 % (1.0-10.0); NEUTROPHILS % (AUTO) 52.8 % (45.0-75.0); PLATELET COUNT 475 K/UL (150-450); RED CELL DISTRIBUTION WIDTH 14.4 % (11.6-14.8); WHITE BLOOD COUNT 7.1 K/UL (4.8-10.8)
[2020-01-16 06:57] LABS: ALBUMIN 1.9 G/DL (3.4-5.0); ALBUMIN/GLOBULIN RATIO 0.4 (1.0-2.7); BILIRUBIN,TOTAL 0.2 MG/DL (0.2-1.0); CALCIUM 8.2 MG/DL (8.5-10.1); POTASSIUM 4.2 MMOL/L (3.5-5.1)
--- NOTE | 2020-01-16 07:34 | NUR ---
NURSE HAND-OFF: Important Events on Shift:[Ileostomy] Patient Status: [stable] Diet: [BCIR low residue] Pending Orders: [n] Pending Results/Labs:[n] Pending MD notification:[n] Latest Vital Signs: Temperature 98.6 , Pulse 98 , B/P 104 /62 , Respiratory Rate 18 , O2 SAT 95 , Room Air, O2 Flow Rate 3 . Vital Sign Comment: [stable] Latest Jimenez Fall Score: 50 Fall Risk: High Risk Safety Measures: Call light Within Reach, Bed Alarm Zone 1, Side Rails Side Rails x2, Bed position Low and Locked. Fall Precautions: Door Sign Patient Fall Education Report given to [jioe fleming].
--- NOTE | 2020-01-16 07:54 | NUR ---
NURSE NOTES: Received report from xochitl KAYE, rounds made, pt sleeping with no s/s of respiratory distress on RA pt has a PICC line on the KELLEE with IVF, intact patent asymptomatic, bed in low locked position, side rails upX2, call light with in reach, will continue to monitor
[2020-01-16 08:00] VITALS: BP 115/75
--- NOTE | 2020-01-16 08:25 | Pulmonology Progress Note ---
Subjective ROS Limited/Unobtainable: No Constitutional: Denies: fever HEENT: Repors: no symptoms Respiratory: Reports: no symptoms Cardiovascular: Reports: no symptoms Gastrointestinal/Abdominal: Reports: other - less abdominal wound drainage ; Denies: nausea, vomiting, diarrhea Genitourinary: Reports: no symptoms Psychiatric: Denies: depression Skin: Denies: rash Musculoskeletal: Denies: pain Allergies: Coded Allergies: AMPICILLIN (Verified Allergy, Unknown, 12/17/19) TETRACYCLINE (Verified Allergy, Unknown, 12/17/19) Subjective comfortable no distress no sob off oxygen Objective Last 24 Hour Vital Signs Date Time Temp Pulse Resp B/P (MAP) Pulse Ox O2 Delivery O2 Flow Rate FiO2 01/16/20 08:00 98.7 87 18 115/75 (88) 98 01/16/20 04:00 98.6 98 18 104/62 (76) 95 01/16/20 00:00 98.0 82 20 99/63 (75) 96 01/15/20 21:00 Room Air 01/15/20 20:00 97.7 89 20 123/61 (81) 94 01/15/20 16:00 98.6 86 16 117/72 (87) 95 01/15/20 12:00 98.4 91 16 115/72 (86) 95 01/15/20 10:01 98.0 Intake and Output 01/15/20 01/16/20 19:00 07:00 Intake Total 1100 ml 2080 ml Output Total 2170 ml 2775 ml Balance -1070 ml -695 ml Intake Oral 1100 ml 600 ml IV Total 1480 ml Output Urine Total 1300 ml 2300 ml Other 870 ml 475 ml General Appearance: no acute distress Respiratory: chest wall non-tender, normal breath sounds, no respiratory distress, no accessory muscle use Cardiovascular: normal peripheral pulses, normal rate, regular rhythm, no gallop/murmur Abdomen: normal bowel sounds, soft, non tender, non distended Extremities: no cyanosis, no clubbing, no edema Laboratory Tests 01/15/20 12:31: POC Whole Blood Glucose 107H 01/15/20 17:51: POC Whole Blood Glucose 156H 01/15/20 23:51: POC Whole Blood Glucose 124H 01/16/20 04:55: White Blood Count 7.1, Red Blood Count 3.20L, Hemoglobin 9.7L, Hematocrit 28.7L, Mean Corpuscular Volume 89, Mean Corpuscular Hemoglobin 30.4, Mean Corpuscular Hemoglobin Concent 34.0, Red Cell Distribution Width 14.4, Platelet Count 475H, Mean Platelet Volume 6.2L, Neutrophils (%) (Auto) 52.8, Lymphocytes (%) (Auto) 27.7, Monocytes (%) (Auto) 7.7, Eosinophils (%) (Auto) 10.7H, Basophils (%) (Auto) 1.2, Sodium Level 134L, Potassium Level 4.2, Chloride Level 99, Carbon Dioxide Level 27, Anion Gap 8, Blood Urea Nitrogen 24H, Creatinine 1.0, Estimat Glomerular Filtration Rate 56.5, Glucose Level 98, Calcium Level 8.2L, Phosphorus Level 4.0, Magnesium Level 1.9, Total Bilirubin 0.2, Aspartate Amino Transf (AST/SGOT) 17, Alanine Aminotransferase (ALT/SGPT) 14, Alkaline Phosphatase 156H, Total Protein 6.3L, Albumin 1.9L, Globulin 4.4, Albumin/Globulin Ratio 0.4L 01/16/20 05:02: POC Whole Blood Glucose 102 Current Medications Medications (Trade) Dose Ordered Sig/Margarette Route PRN Reason Start Time Stop Time Status Last Admin Dose Admin Acetaminophen/ Butalbital/ Caffeine (Fioricet) 1 tab Q6H PRN ORAL headache 12/29/19 20:30 01/18/20 20:29 12/30/19 09:04 Al Hydroxide/Mg Hydroxide (Mylanta II) 30 ml Q6H PRN ORAL GAS/DYSPEPSIA 01/05/20 08:45 02/04/20 08:44 Chlorhexidine Gluconate (Patti-Hex 2%) 1 applic DAILY@1999 TOPIC 12/29/19 20:30 03/28/20 20:29 01/15/20 20:40 Clotrimazole (Lotrimin) 1 applic BID TOPIC 12/30/19 09:00 03/20/20 10:29 01/15/20 18:16 Dextrose 1,000 ml @ 0 mls/hr Q24H PRN IV PN interrupted or unavailable 12/29/19 20:30 01/28/20 20:29 Dextrose (Dextrose 50%) 25 ml Q30M PRN IV Hypoglycemia 12/29/19 20:30 03/17/20 19:59 Dextrose (Dextrose 50%) 50 ml Q30M PRN IV Hypoglycemia 12/29/19 20:30 03/17/20 19:59 Diphenhydramine HCl (Benadryl) 25 mg Q4H PRN IVP Itching 12/30/19 21:50 01/29/20 21:49 01/15/20 06:37 Diphenhydramine HCl (Benadryl) 25 mg Q6H PRN ORAL Itching 12/29/19 20:30 01/19/20 20:29 01/15/20 18:16 Fat Emulsion Intravenous 240 ml/Amino Acids/ Electrolytes/ Dextrose 1,920 ml @ 80 mls/hr Q24H IV 01/13/20 20:00 02/12/20 19:59 01/15/20 20:44 Hydromorphone HCl (Dilaudid) 1 mg Q3H PRN SUBQ Severe Breakthru Pain (>7) 01/15/20 13:06 01/22/20 13:05 01/15/20 22:08 Hydroxyzine HCl (Atarax) 50 mg Q6H PRN ORAL Itching 01/02/20 19:15 01/28/20 20:29 01/13/20 22:00 Insulin Aspart (NovoLOG) Q6HR SUBQ 12/30/19 00:00 03/18/20 00:00 01/15/20 18:16 Lansoprazole (Prevacid) 30 mg Q12HR ORAL 01/05/20 21:00 02/04/20 20:59 01/15/20 20:40 Mesalamine (Rowasa) 4 gm BEDTIME RECTAL 01/13/20 21:00 04/12/20 20:59 01/15/20 20:46 Ondansetron HCl (Zofran) 4 mg Q4H PRN IVP Nausea & Vomiting 12/30/19 21:40 01/29/20 21:39 01/15/20 16:33 Oxycodone/ Acetaminophen (Percocet 5-325) 1 tab Q4H PRN ORAL Moderate Pain (Pain Scale 4-6) 01/13/20 08:47 01/20/20 08:46 Phytonadione (Vitamin K) 10 mg ONCE A WEEK SUBQ 01/01/20 09:00 03/24/20 08:59 01/15/20 08:51 Pramipexole (Mirapex) 1 mg TWICE A DAY ORAL 01/15/20 18:00 02/02/20 02:59 01/15/20 17:46 Prochlorperazine (Compazine) 10 mg Q6H PRN IV Nausea & Vomiting 01/05/20 08:45 02/04/20 08:44 01/15/20 20:01 Quetiapine Fumarate (SEROqueL) 200 mg BEDTIME ORAL 12/29/19 21:00 01/31/20 20:59 01/15/20 21:55 Sodium Chloride 1,000 ml @ 50 mls/hr Q20H IV 01/15/20 13:15 02/14/20 13:14 01/15/20 13:51 Temazepam (RestoriL) 7.5 mg BEDTIME PRN ORAL Insomnia 01/15/20 13:15 01/22/20 13:14 01/15/20 20:48 Assessment/Plan Assessment/Plan IMPRESSION: 1. Status post laparotomy. 2. Ulcerative colitis. 3. Bilateral pleural effusions and atelectasis. minimal 4. anemia 5. severe PCM DISCUSSION: Continue off oxygen and pulmonary hygiene as needed monitor for congestion - currently stable Pain control. DVT prophylaxis. GI prophylaxis. incentive missy monitor imaging for change and worsening atelectasis/effusions monitor oxygen needs impression, plan, and exam edited and reviewed in detail care discussed with Jarek Mendoza MD Jan 16, 2020 08:25
[2020-01-16] MEDS: Pramipexole 0.5mg tab ORAL SCH ×2 (09:01→17:37)
--- NOTE | 2020-01-16 09:36 | General Progress Note ---
Progress Note Progress Note AVSS Eating better 20% of meals Abdomen soft, all dangelo removed, open wound not granulating yet. less drainage Urinek 3600 Ileostomy 1345 CBC stable Na up 134 albumin 1.9 Off antibiotics now Imp: Improving Plan: D/C NS infusion - continue TPN remove urinary zheng catheter (no need for further diuresing) Gio Mckeon MD Jan 16, 2020 09:36
--- NOTE | 2020-01-16 09:53 | General Progress Note ---
Subjective ROS Limited/Unobtainable: Yes Allergies: Coded Allergies: AMPICILLIN (Verified Allergy, Unknown, 12/17/19) TETRACYCLINE (Verified Allergy, Unknown, 12/17/19) Objective Last 24 Hour Vital Signs Date Time Temp Pulse Resp B/P (MAP) Pulse Ox O2 Delivery O2 Flow Rate FiO2 01/16/20 08:00 98.7 87 18 115/75 (88) 98 01/16/20 04:00 98.6 98 18 104/62 (76) 95 01/16/20 00:00 98.0 82 20 99/63 (75) 96 01/15/20 21:00 Room Air 01/15/20 20:00 97.7 89 20 123/61 (81) 94 01/15/20 16:00 98.6 86 16 117/72 (87) 95 01/15/20 12:00 98.4 91 16 115/72 (86) 95 01/15/20 10:01 98.0 Intake and Output 01/15/20 01/16/20 19:00 07:00 Intake Total 1100 ml 2080 ml Output Total 2170 ml 2775 ml Balance -1070 ml -695 ml Intake Oral 1100 ml 600 ml IV Total 1480 ml Output Urine Total 1300 ml 2300 ml Other 870 ml 475 ml Laboratory Tests 01/15/20 12:31: POC Whole Blood Glucose 107H 01/15/20 17:51: POC Whole Blood Glucose 156H 01/15/20 23:51: POC Whole Blood Glucose 124H 01/16/20 04:55: White Blood Count 7.1, Red Blood Count 3.20L, Hemoglobin 9.7L, Hematocrit 28.7L, Mean Corpuscular Volume 89, Mean Corpuscular Hemoglobin 30.4, Mean Corpuscular Hemoglobin Concent 34.0, Red Cell Distribution Width 14.4, Platelet Count 475H, Mean Platelet Volume 6.2L, Neutrophils (%) (Auto) 52.8, Lymphocytes (%) (Auto) 27.7, Monocytes (%) (Auto) 7.7, Eosinophils (%) (Auto) 10.7H, Basophils (%) (Auto) 1.2, Sodium Level 134L, Potassium Level 4.2, Chloride Level 99, Carbon Dioxide Level 27, Anion Gap 8, Blood Urea Nitrogen 24H, Creatinine 1.0, Estimat Glomerular Filtration Rate 56.5, Glucose Level 98, Calcium Level 8.2L, Phosphorus Level 4.0, Magnesium Level 1.9, Total Bilirubin 0.2, Aspartate Amino Transf (AST/SGOT) 17, Alanine Aminotransferase (ALT/SGPT) 14, Alkaline P hosphatase 156H, Total Protein 6.3L, Albumin 1.9L, Globulin 4.4, Albumin/Globulin Ratio 0.4L 01/16/20 05:02: POC Whole Blood Glucose 102 Height (Feet): 5 Height (Inches): 5.00 Weight (Pounds): 137 General Appearance: no apparent distress EENT: normal ENT inspection Neck: supple Cardiovascular: normal rate Respiratory/Chest: decreased breath sounds Abdomen: hypoactive bowel sounds, tender Extremities: non-tender Assessment/Plan Problem List: (1) Failed Ileocecal Pouch (2) Leg edema, left ICD Codes: R60.0 - Localized edema SNOMED: 623054268 (3) Abdominal pain ICD Codes: R10.9 - Unspecified abdominal pain SNOMED: 88013660 (4) Colostomy and enterostomy complications SNOMED: 505308828 (5) Ulcerative colitis ICD Codes: K51.90 - Ulcerative colitis, unspecified, without complications SNOMED: 92569397 Assessment/Plan: s/p J- pouchoscopy and hemostasis agree with Juan on TPN eating better fu surg recs fu labs will fu Amando Vaz MD Jan 16, 2020 09:53
[2020-01-16] MEDS: oxyCODONE HCL/Acetaminophen 5/325mg ORAL PRN ×2 (11:09→17:37)
--- NOTE | 2020-01-16 11:39 | NUR ---
P.T Weekly Progress Notes: Pt seen this past week of therapy. Pt demonstrated significant improvement in mobility performance and activity tolerance. Pt able to perform and complete bed mobilities independently w/o difficulties, SBA/supervision for transfers. Pt ambulates and tolerates distance average of 300 ft using her rollator with SBA/supervision. Pt had no major c/o of pain during the week of P.T sessions. Will continue with POC to further increase strength and endurance to maximize ADL/functional mobility independence towards return to PLOF. Recommend home P.T at [place]. Addendum: 01/16/20 at 1146 by RIVAS FAIRCHILD PT Amended: Links added.
[2020-01-16 12:00] VITALS: BP 128/80
[2020-01-16 16:00] VITALS: BP 145/75
--- NOTE | 2020-01-16 18:46 | NUR ---
NURSE NOTES: pt remained stable during day shift, pt tolerating PO meals well , pt dressing was change at 1300 and at 1730. , at both times 4x4 packed in the stained only to the part that is packed into the wound, pt tolerates tx well no c/o pain during dressing change . Pt got up with Physical therapy X1, pt did not ambulate with nurse but was able to sit up in chairX1 for 1 hour, pt voiding with out difficulty s/p Caban catheter removal . PT has liquid yellow /green stool output with strong odor from Narcisa Ileo . Narcisa ileo 1050 Urine out put 1200
--- NOTE | 2020-01-16 19:11 | NUR ---
NURSE HAND-OFF: Important Events on Shift: norm d/c [id number] Patient Status: stable Diet: BCIR Pending Orders: Pending Results/Labs: Pending MD notification: Latest Vital Signs: Temperature 98.8 , Pulse 87 , B/P 145 /75 , Respiratory Rate 18 , O2 SAT 98 , Room Air, O2 Flow Rate 3 . Vital Sign Comment: Latest Jimenez Fall Score: 50 Fall Risk: High Risk Safety Measures: Call light Within Reach, Bed Alarm Zone 1, Side Rails Side Rails x2, Bed position Low and Locked. Fall Precautions: Door Sign Patient Fall Education Report given to Angel Luis KAYE .
--- NOTE | 2020-01-16 19:18 | NUR ---
NURSE NOTES: received patient and report from VARGAS Mello. alert and oriented x4 with no acute s/s of distress and no c/o pain. PICC line noted clean dry and intact and running TPN as ordered. surgical dressing clean dry and intact. ileo noted and draining. Plan of care discussed.
[2020-01-16] MEDS: Dyna-Hex 2% Top Sol 2oz TOPIC SCH (19:53)
[2020-01-16] MEDS: Fat Emulsion Iv 20% 240 ML in Tpn 1,680 ML IV SCH (19:54)
[2020-01-16 20:00] VITALS: BP 139/81
[2020-01-16] MEDS: QUEtiapine 200mg tab ORAL SCH (21:30)
[2020-01-16] MEDS: Mesalamine Enema 4gm/60ml RECTAL SCH (21:30)
[2020-01-16] MEDS ORDERED: NS 500ML ONE (22:21)
[2020-01-16] MEDS: DiphenhydrAMINE 50mg/ml Inj IVP PRN (22:25)
[2020-01-17] VITALS: BP 134/80
[2020-01-17] MEDS: HYDROmorphone 1mg/ml Carpuject SUBQ PRN ×5 (00:34→23:51)
--- NOTE | 2020-01-17 00:45 | NUR ---
NURSE NOTES: PICC line dressing changed. pt tolerated procedure well. no redness or swelling around insertion site and nontender. no other signs of infection and no drainage.
[2020-01-17 04:00] VITALS: BP 125/75
--- NOTE | 2020-01-17 04:26 | NUR ---
NURSE NOTES: surgical dressing changed. patient tolerated well. old dressing with sanguineous drainage little to moderate amount. no other signs of infection.
[2020-01-17] MEDS: NovoLOG Insulin Flexpen SUBQ SCH ×4 (05:32→18:00)
[2020-01-17] MEDS: oxyCODONE HCL/Acetaminophen 5/325mg ORAL PRN (05:55)
[2020-01-17 06:00] LABS: BASOPHILS % (AUTO) 1.2 % (0.0-2.0); EOSINOPHILS % (AUTO) 5.5 % (0.0-3.0); HEMATOCRIT 29.2 % (37.0-47.0); LYMPHOCYTES % (AUTO) 24.5 % (20.0-45.0); MEAN CORPUSCULAR VOLUME 89 FL (80-99); MONOCYTES % (AUTO) 10.2 % (1.0-10.0); NEUTROPHILS % (AUTO) 58.5 % (45.0-75.0); PLATELET COUNT 488 K/UL (150-450); RED BLOOD COUNT 3.27 M/UL (4.20-5.40); RED CELL DISTRIBUTION WIDTH 14.6 % (11.6-14.8); WHITE BLOOD COUNT 8.5 K/UL (4.8-10.8)
[2020-01-17 06:50] LABS: ALBUMIN 2.3 G/DL (3.4-5.0); ALBUMIN/GLOBULIN RATIO 0.5 (1.0-2.7); BILIRUBIN,TOTAL 0.2 MG/DL (0.2-1.0); CALCIUM 8.7 MG/DL (8.5-10.1); CREATININE 1.1 MG/DL (0.55-1.30); PHOSPHORUS 4.1 MG/DL (2.5-4.9); POTASSIUM 3.9 MMOL/L (3.5-5.1)
--- NOTE | 2020-01-17 07:31 | NUR ---
NURSE HAND-OFF: Important Events on Shift:Pain management, nausea control, PICC line dressing change, surgical dressing change Patient Status: stable Diet: BCIR Pending Orders: NA Pending Results/Labs:NA Pending MD notification:NA Latest Vital Signs: Temperature 98.7 , Pulse 90 , B/P 125 /75 , Respiratory Rate 17 , O2 SAT 95 , Room Air, O2 Flow Rate 3 . Vital Sign Comment: stable throughout shift Latest Jimenez Fall Score: 50 Fall Risk: High Risk Safety Measures: Call light Within Reach, Bed Alarm Zone 1, Side Rails Side Rails x2, Bed position Low and Locked. Fall Precautions: Door Sign Patient Fall Education Report given to VARGAS Stout.
--- NOTE | 2020-01-17 07:33 | NUR ---
NURSE NOTES: Received pt from VARGAS Hein, pt was resting no c/o pain, no acute distress, PICC KELLEE clean and dry and abd drg clean and dry. call light w/in reach.
[2020-01-17 08:00] VITALS: BP 148/86
[2020-01-17] MEDS: Pramipexole 0.5mg tab ORAL SCH ×2 (08:22→18:12)
--- NOTE | 2020-01-17 08:31 | General Progress Note ---
Subjective ROS Limited/Unobtainable: Yes Allergies: Coded Allergies: AMPICILLIN (Verified Allergy, Unknown, 12/17/19) TETRACYCLINE (Verified Allergy, Unknown, 12/17/19) Objective Last 24 Hour Vital Signs Date Time Temp Pulse Resp B/P (MAP) Pulse Ox O2 Delivery O2 Flow Rate FiO2 01/17/20 08:00 98.5 94 18 148/86 (106) 95 01/17/20 08:00 Room Air 01/17/20 04:00 98.7 90 17 125/75 (92) 95 01/17/20 00:00 98.4 97 14 134/80 (98) 95 01/16/20 21:00 Room Air 01/16/20 20:00 98.4 80 16 139/81 (100) 96 01/16/20 16:00 98.8 87 18 145/75 (98) 98 01/16/20 12:00 98.7 89 18 128/80 (96) 98 Intake and Output0 01/16/20 01/17/20 19:00 07:00 Intake Total 1036 ml 1200 ml Output Total 2250 ml 790 ml Balance -1214 ml 410 ml Intake Oral 1036 ml 400 ml IV Total 800 ml Output Urine Total 1200 ml 560 ml Other 1050 ml 230 ml # Voids 3 Laboratory Tests 01/16/20 11:03: POC Whole Blood Glucose 128H 01/16/20 17:56: POC Whole Blood Glucose 117H 01/16/20 23:35: POC Whole Blood Glucose 98 01/17/20 05:15: White Blood Count 8.5, Red Blood Count 3.27L, Hemoglobin 10.0L, Hematocrit 29.2L , Mean Corpuscular Volume 89, Mean Corpuscular Hemoglobin 30.6, Mean Corpuscular Hemoglobin Concent 34.3, Red Cell Distribution Width 14.6, Platelet Count 488H, Mean Platelet Volume 6.2L, Neutrophils (%) (Auto) 58.5, Lymphocytes (%) (Auto) 24.5, Monocytes (%) (Auto) 10.2H, Eosinophils (%) (Auto) 5.5H, Basophils (%) (Auto) 1.2, Sodium Level 133L, Potassium Level 3.9, Chloride Level 99, Carbon Dioxide Level 28, Anion Gap 6, Blood Urea Nitrogen 28H, Creatinine 1.1, Estimat Glomerular Filtration Rate 50.7, Glucose Level 102, Calcium Level 8.7, Phosphorus Level 4.1, Magnesium Level 1.9, Total Bilirubin 0.2, Aspartate Amino Transf (AST/SGOT) 19, Alanine Aminotransferase (ALT/SGPT) 15, Alkaline Phosphatase 196H, Total Protein 7.1, Albumin 2.3L, Globulin 4.8, Albumin/Globulin Ratio 0.5L 01/17/20 05:29: POC Whole Blood Glucose 107H Height (Feet): 5 Height (Inches): 5.00 Weight (Pounds): 137 General Appearance: no apparent distress EENT: normal ENT inspection Neck: supple Cardiovascular: normal rate Respiratory/Chest: decreased breath sounds Abdomen: hypoactive bowel sounds, tender Extremities: non-tender Assessment/Plan Problem List: (1) Failed Ileocecal Pouch (2) Leg edema, left ICD Codes: R60.0 - Localized edema SNOMED: 225130518 (3) Abdominal pain ICD Codes: R10.9 - Unspecified abdominal pain SNOMED: 58561894 (4) Colostomy and enterostomy complications SNOMED: 350921564 (5) Ulcerative colitis ICD Codes: K51.90 - Ulcerative colitis, unspecified, without complications SNOMED: 86640634 Assessment/Plan: s/p J- pouchoscopy and hemostasis on Rowasa on TPN eating better but still c/o nausea and abd pain fu surg recs fu labs will fu Amando Vaz MD Jan 17, 2020 08:31
--- NOTE | 2020-01-17 09:59 | General Progress Note ---
Progress Note Progress Note AVSS Slowly improving off antibiotics. Eating 25-50% Abdomen soft, open wound cavity with minimal drainage - not granulating yet Urine 1760 Ileostomy 1280 Tolerating mesalamine enemas qhs labs all stable albumin up 2.3 Imp: slowly improving Plan: continue TPN pack wound with dry 4x4 gauze 3x daily and prn discharge planning for home health care Gio Mckeon MD Jan 17, 2020 09:59
--- NOTE | 2020-01-17 10:20 | Pulmonology Progress Note ---
Subjective ROS Limited/Unobtainable: Yes Constitutional: Denies: fever HEENT: Repors: no symptoms Respiratory: Reports: no symptoms Cardiovascular: Reports: no symptoms Gastrointestinal/Abdominal: Reports: other - less abdominal wound drainage ; Denies: nausea, vomiting, diarrhea Genitourinary: Reports: no symptoms Psychiatric: Denies: depression Skin: Denies: rash Musculoskeletal: Denies: pain Allergies: Coded Allergies: AMPICILLIN (Verified Allergy, Unknown, 12/17/19) TETRACYCLINE (Verified Allergy, Unknown, 12/17/19) Objective Last 24 Hour Vital Signs Date Time Temp Pulse Resp B/P (MAP) Pulse Ox O2 Delivery O2 Flow Rate FiO2 01/17/20 08:00 98.5 94 18 148/86 (106) 95 01/17/20 08:00 Room Air 01/17/20 04:00 98.7 90 17 125/75 (92) 95 01/17/20 00:00 98.4 97 14 134/80 (98) 95 01/16/20 21:00 Room Air 01/16/20 20:00 98.4 80 16 139/81 (100) 96 01/16/20 16:00 98.8 87 18 145/75 (98) 98 01/16/20 12:00 98.7 89 18 128/80 (96) 98 Intake and Output 01/16/20 01/17/20 19:00 07:00 Intake Total 1036 ml 1200 ml Output Total 2250 ml 790 ml Balance -1214 ml 410 ml Intake Oral 1036 ml 400 ml IV Total 800 ml Output Urine Total 1200 ml 560 ml Other 1050 ml 230 ml # Voids 3 General Appearance: no acute distress Respiratory: chest wall non-tender, normal breath sounds, no respiratory distress, no accessory muscle use Cardiovascular: normal peripheral pulses, normal rate, regular rhythm, no gallop/murmur Abdomen: normal bowel sounds, soft, non tender, non distended Extremities: no cyanosis, no clubbing, no edema Laboratory Tests 01/16/20 11:03: POC Whole Blood Glucose 128H 01/16/20 17:56: POC Whole Blood Glucose 117H 01/16/20 23:35: POC Whole Blood Glucose 98 01/17/20 05:15: White Blood Count 8.5, Red Blood Count 3.27L, Hemoglobin 10.0L, Hematocrit 29.2L , Mean Corpuscular Volume 89, Mean Corpuscular Hemoglobin 30.6, Mean Corpuscular Hemoglobin Concent 34.3, Red Cell Distribution Width 14.6, Platelet Count 488H, Mean Platelet Volume 6.2L, Neutrophils (%) (Auto) 58.5, Lymphocytes (%) (Auto) 24.5, Monocytes (%) (Auto) 10.2H, Eosinophils (%) (Auto) 5.5H, Basophils (%) (Auto) 1.2, Sodium Level 133L, Potassium Level 3.9, Chloride Level 99, Carbon Dioxide Level 28, Anion Gap 6, Blood Urea Nitrogen 28H, Creatinine 1.1, Estimat Glomerular Filtration Rate 50.7, Glucose Level 102, Calcium Level 8.7, Phosphorus Level 4.1, Magnesium Level 1.9, Total Bilirubin 0.2, Aspartate Amino Transf (AST/SGOT) 19, Alanine Aminotransferase (ALT/SGPT) 15, Alkaline Phosphatase 196H, Total Protein 7.1, Albumin 2.3L, Globulin 4.8, Albumin/Globulin Ratio 0.5L 01/17/20 05:29: POC Whole Blood Glucose 107H Current Medications Medications (Trade) Dose Ordered Sig/Margarette Route PRN Reason Start Time Stop Time Status Last Admin Dose Admin Acetaminophen/ Butalbital/ Caffeine (Fioricet) 1 tab Q6H PRN ORAL headache 01/16/20 09:27 02/15/20 09:26 Al Hydroxide/Mg Hydroxide (Mylanta II) 30 ml Q6H PRN ORAL GAS/DYSPEPSIA 01/05/20 08:45 02/04/20 08:44 Chlorhexidine Gluconate (Patti-Hex 2%) 1 applic DAILY@1999 TOPIC 12/29/19 20:30 03/28/20 20:29 01/16/20 19:53 Clotrimazole (Lotrimin) 1 applic BID TOPIC 12/30/19 09:00 03/20/20 10:29 01/15/20 18:16 Dextrose 1,000 ml @ 0 mls/hr Q24H PRN IV PN interrupted or unavailable 12/29/19 20:30 01/28/20 20:29 Dextrose (Dextrose 50%) 25 ml Q30M PRN IV Hypoglycemia 12/29/19 20:30 03/17/20 19:59 Dextrose (Dextrose 50%) 50 ml Q30M PRN IV Hypoglycemia 12/29/19 20:30 03/17/20 19:59 Diphenhydramine HCl (Benadryl) 25 mg Q4H PRN IVP Itching 12/30/19 21:50 01/29/20 21:49 01/16/20 22:25 Diphenhydramine HCl (Benadryl) 25 mg Q6H PRN ORAL Itching 01/17/20 10:00 02/07/20 09:59 Fat Emulsion Intravenous 240 ml/Amino Acids/ Electrolytes/ Dextrose 1,920 ml @ 80 mls/hr Q24H IV 01/13/20 20:00 02/12/20 19:59 01/16/20 19:54 Hydromorphone HCl (Dilaudid) 1 mg Q3H PRN SUBQ Severe Breakthru Pain (>7) 01/15/20 13:06 01/22/20 13:05 01/17/20 07:44 Hydroxyzine HCl (Atarax) 50 mg Q6H PRN ORAL Itching 01/02/20 19:15 01/28/20 20:29 01/13/20 22:00 Insulin Aspart (NovoLOG) Q6HR SUBQ 12/30/19 00:00 03/18/20 00:00 01/15/20 18:16 Lansoprazole (Prevacid) 30 mg Q12HR ORAL 01/05/20 21:00 02/04/20 20:59 01/17/20 08:22 Mesalamine (Rowasa) 4 gm BEDTIME RECTAL 01/13/20 21:00 04/12/20 20:59 01/16/20 21:30 Ondansetron HCl (Zofran) 4 mg Q4H PRN IVP Nausea & Vomiting 12/30/19 21:40 01/29/20 21:39 01/17/20 06:02 Oxycodone/ Acetaminophen (Percocet 5-325) 1 tab Q4H PRN ORAL Moderate Pain (Pain Scale 4-6) 01/13/20 08:47 01/20/20 08:46 01/17/20 05:55 Phytonadione (Vitamin K) 10 mg ONCE A WEEK SUBQ 01/01/20 09:00 03/24/20 08:59 01/15/20 08:51 Pramipexole (Mirapex) 1 mg TWICE A DAY ORAL 01/15/20 18:00 02/02/20 02:59 01/17/20 08:22 Prochlorperazine (Compazine) 10 mg Q6H PRN IV Nausea & Vomiting 01/05/20 08:45 02/04/20 08:44 01/15/20 20:01 Quetiapine Fumarate (SEROqueL) 200 mg BEDTIME ORAL 12/29/19 21:00 01/31/20 20:59 01/16/20 21:30 Temazepam (RestoriL) 7.5 mg BEDTIME PRN ORAL Insomnia 01/15/20 13:15 01/22/20 13:14 01/16/20 20:04 Assessment/Plan Assessment/Plan Pulmonary Progress Note Subjective ROS Limited/Unobtainable: No Constitutional: Denies: fever HEENT: Repors: no symptoms Respiratory: Reports: no symptoms Cardiovascular: Reports: no symptoms Gastrointestinal/Abdominal: Reports: other - less abdominal wound drainage ; Denies: nausea, vomiting, diarrhea Genitourinary: Reports: no symptoms Psychiatric: Denies: depression Skin: Denies: rash Musculoskeletal: Denies: pain Allergies: Coded Allergies: AMPICILLIN (Verified Allergy, Unknown, 12/17/19) TETRACYCLINE (Verified Allergy, Unknown, 12/17/19) Subjective comfortable no distress no sob off oxygen Objective Vital Signs noted General Appearance: no acute distress Respiratory: chest wall non-tender, normal breath sounds, no respiratory distress, no accessory muscle use Cardiovascular: normal peripheral pulses, normal rate, regular rhythm, no gallop/murmur Abdomen: normal bowel sounds, soft, non tender, non distended Extremities: no cyanosis, no clubbing, no edema Laboratory Tests noted Assessment/Plan IMPRESSION: 1. Status post laparotomy. 2. Ulcerative colitis. 3. Bilateral pleural effusions and atelectasis. minimal 4. anemia 5. severe PCM DISCUSSION: Continue off oxygen and pulmonary hygiene as needed monitor for congestion - currently stable Pain control. DVT prophylaxis. GI prophylaxis. incentive missy monitor imaging for change and worsening atelectasis/effusions monitor oxygen needs impression, plan, and exam edited and reviewed in detail care discussed with Branden Luz MD Jan 17, 2020 10:20
[2020-01-17 12:00] VITALS: BP 135/82
--- NOTE | 2020-01-17 15:00 | NUR ---
NURSE NOTES: Changed to abd dressing as order, using a cotton tipped for pack the wound cavity with gauze. pt well tolerated
[2020-01-17 16:00] VITALS: BP 136/85
--- NOTE | 2020-01-17 16:09 | NUR ---
PT Note Attempted to see patient for treatment but patient c/o not being able to sleep well last night; requests to defer PT this PM.
--- NOTE | 2020-01-17 17:50 | Infectious Diseases Prog Note ---
Assessment/Plan Assessment/Plan ASSESSMENT AND PLAN: 1. e.coli uti, morganella uti, left leg cellulitis, ? reaction/atypical drug rash to aztreonam, allergies - ampicillin, tetracycline s/p surgery on 12/29/19 surgical abdominal fluid with e.coli - s-amikacin initial wound drainage culture with esbl e.coli and proteus - 2 + - sensitive to amikacin, f/u wound culture with 1 + e.coli/proteus fungemia risk, TPN - s/p amikacin, flagyl, micafungin for 14 days post-op - favor not to retreat f/u wound culture since same organisms, less drainage off abx and already received 2 weeks tx - risks > benefits - CT abdomen and pelvis - no abscess - monitor labs - leukocytosis resolved - management per Dr. Mckeon - clinically improving, less wound drainage, note reviewed 2. skin care per protocol - ? fungal component, on clotrimazole cream 3. 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 4. History of Narcisa ileostomy. 5. History of ulcerative colitis. 6. History of multiple abdominal surgeries. 7. History of cholecystectomy. 8. History of peristomal hernia and mesh. 9. History of colectomy. 10. Continue treatment per Dr. Mckeon and consultants. 11. Allergies to ampicillin, tetracycline. She gets hives with ampicillin. 12. Social history is negative. 13. Family history is noncontributory. 14. MAR is noted. 15. Case was discussed with RN. 16. Case was discussed with Dr. Mckeon. 17. Case was discussed with the patient. Subjective Constitutional: Reports: fatigue; Denies: fever HEENT: Denies: congestion Respiratory: Denies: shortness of breath Cardiovascular: Denies: chest pain Gastrointestinal/Abdominal: Denies: nausea, vomiting, diarrhea Genitourinary: Reports: other - no zheng Neurologic: Denies: headache Psychiatric: Denies: depression Skin: Denies: rash Hematologic: Denies: bleeding Musculoskeletal: Denies: pain Allergies: Coded Allergies: AMPICILLIN (Verified Allergy, Unknown, 12/17/19) TETRACYCLINE (Verified Allergy, Unknown, 12/17/19) Objective Last 24 Hour Vital Signs Date Time Temp Pulse Resp B/P (MAP) Pulse Ox O2 Delivery O2 Flow Rate FiO2 01/17/20 16:00 98.3 88 18 136/85 (102) 96 01/17/20 12:00 98.3 87 18 135/82 (99) 97 01/17/20 08:00 98.5 94 18 148/86 (106) 95 01/17/20 08:00 Room Air 01/17/20 04:00 98.7 90 17 125/75 (92) 95 01/17/20 00:00 98.4 97 14 134/80 (98) 95 01/16/20 21:00 Room Air 01/16/20 20:00 98.4 80 16 139/81 (100) 96 Height (Feet): 5 Height (Inches): 5.00 Weight (Pounds): 137 General Appearance: no acute distress HEENT: normocephalic, atraumatic, anicteric, mucous membranes moist Respiratory/Chest: lungs clear, normal breath sounds, no respiratory distress, no accessory muscle use Cardiovascular: normal rate, regular rhythm, no gallop/murmur, no JVD Abdomen: normal bowel sounds, soft, non tender, no organomegaly, non distended, other - incision/wound - covered Genitourinary: other - no zheng Extremities: no cyanosis Skin: no rash Neurologic/Psychiatric: slate handler II-XII grossly normal, alert, oriented x 3, res ponsive Lymphatic: no neck adenopathy Musculoskeletal: no effusion Chest x-ray - Procedure: XRAY Chest 1v Indication: Cough Technique: One view of the chest Comparison: none Findings: There is diffuse mild bilateral interstitial disease and central bronchial wall thickening. No focal airspace consolidation. No effusions. Normal heart size Impression: Acuity indeterminate mild interstitial disease. Correlate with clinical findings. No focal infiltrates CT abdomen and pelvis: Impression: Postsurgical changes, as described, including right lower quadrant simple ileostomy, prior total colectomy, and J-pouch. There is abundant anterior pelvic apparent defunctionalized small bowel which appears to be in continuity with and ileoanal J-pouch remnant. Most likely, this just represents old isolated small bowel, but the possibility of any of this representing either tumor or abscess is not completely excludable. Small parastomal hernia within the right lower quadrant ileostomy. This appears to be nonobstructive. Equivocal mild wall thickening of left upper quadrant jejunal loops. Enteritis is possible and correlation with clinical findings is recommended Age-indeterminate L2 vertebral body compression fracture deformity. Suspect old. Consider MRI if clinically relevant Prior cholecystectomy Inferior vena cava filter Findings discussed by phone Chest x-ray - 12/29/19 - FINDINGS: Lungs: Retrocardiac atelectasis versus infiltrate. No consolidation or interstitial edema. Pleural space: Trace left pleural effusion. Heart: Unremarkable. No cardiomegaly. Bones/joints: Unremarkable. Tubes, lines and devices: Endotracheal tube terminates 3 cm above the kyung. Left upper extremity PICC line terminates within the SVC. IMPRESSION: 1. Endotracheal tube terminates 3 cm above the kyung. 2. Left upper extremity PICC line terminates within the SVC. 3. Retrocardiac atelectasis versus infiltrate. 4. Trace left pleural effusion. Chest x-ray - 12/31/19 - Procedure: XRAY Chest 1v Procedure: XRAY Chest 1v Reason for study: Shortness of breath. Comparison films: 12/29/2019. FINDINGS: Endotracheal tube has been removed. Left PICC line remains in place. There is slight worsening of congestion and edema. Cardiac and mediastinal silhouette are within normal limits. CP angles are sharp. The bony thorax appear unremarkable. IMPRESSION: Slight worsening of congestion and edema. Chest x-ray - 01/02/20 - Procedure: XRAY Chest 1v Indication: Reason For Exam: SOB Technique: Single AP view of the chest. Comparison: Chest radiograph dated 12/31/2019 Findings: The cardiomediastinal silhouette is unchanged in appearance. No new airspace consolidation. Stable pulmonary vascular congestion. Demonstration of streaky retrocardiac airspace opacity. No pneumothorax or pleural effusion. Unchanged left PICC. IMPRESSION: No significant change from prior examination. CT abdomen and pelvis- 01/06/20 - Impression: Postsurgical changes, as described. Small amount of fluid and gas is seen along the incision no definite incisional. Incidental abscess demonstrated. Slow traversal of contrast small bowel but no definite evidence of small bowel obstruction Interim Zheng catheter placement Other findings as noted, including stable old healed fracture deformity left pubic bone, inferior vena cava filter, prior cholecystectomy, L2 vertebral body compression fracture CT - abdomen and pelvis - 01/12/20 - Impression: Postsurgical changes, as described Small amount of fluid just deep to the right side of the inferior rectus abdominis muscle in the anterior pelvis, without definite contrast extravasation to suggest enteric fistula. Significance uncertain. Small amount of gas and fluid within the incision again demonstrated. No evidence of small bowel obstruction or graft bilateral small pleural effusions and posterior compressive pulmonary parenchymal atelectasis Other findings as noted, including atrophic spleen, prior cholecystectomy, inferior vena cava filter, Zheng catheter, L2 vertebral body compression fracture defo rmity, degenerative spondylosis CT abdomen and pelvis - 01/12/20 - Impression: Postsurgical changes, as described Small amount of fluid just deep to the right side of the inferior rectus abdominis muscle in the anterior pelvis, without definite contrast extravasation to suggest enteric fistula. Significance uncertain. Small amount of gas and fluid within the incision again demonstrated. No evidence of small bowel obstruction or graft bilateral small pleural effusions and posterior compressive pulmonary parenchymal atelectasis Other findings as noted, including atrophic spleen, prior cholecystectomy, inferior vena cava filter, Zheng catheter, L2 vertebral body compression fracture deformity, degenerative spondylosis Microbiology Date/Time Source Procedure Growth Status 01/12/20 11:28 Abdomen Gram Stain - Final Resulted 01/12/20 11:28 Wound Culture - Preliminary Escherichia Coli Proteus Mirabilis Esbl Resulted 01/05/20 00:48 Stool Clostridium difficile Toxin Assay - Final Complete 01/03/20 16:00 Other Gram Stain - Final Complete 01/03/20 16:00 Wound Culture - Final Escherichia Coli Proteus Mirabilis Esbl Complete 01/01/20 16:00 Blood Blood Culture - Final NO GROWTH AFTER 5 DAYS Complete 12/27/19 11:13 Nasopharynx SARS-CoV-2 RdRp Gene Assay - Final Complete 12/22/19 19:30 Urine,Clean Catch Urine Culture - Final Morganella Morg Spp Morganii Complete Laboratory Tests Test 01/16/20 17:56 01/16/20 23:35 01/17/20 05:15 01/17/20 05:29 POC Whole Blood Glucose 117 MG/DL (74-106) H 98 MG/DL (74-106) 107 MG/DL (74-106) H White Blood Count 8.5 K/UL (4.8-10.8) Red Blood Count 3.27 M/UL (4.20-5.40) L Hemoglobin 10.0 G/DL (12.0-16.0) L Hematocrit 29.2 % (37.0-47.0) L Mean Corpuscular Volume 89 FL (80-99) Mean Corpuscular Hemoglobin 30.6 PG (27.0-31.0) Mean Corpuscular Hemoglobin Concent 34.3 G/DL (32.0-36.0) Red Cell Distribution Width 14.6 % (11.6-14.8) Platelet Count 488 K/UL (150-450) H Mean Platelet Volume 6.2 FL (6.5-10.1) L Neutrophils (%) (Auto) 58.5 % (45.0-75.0) Lymphocytes (%) (Auto) 24.5 % (20.0-45.0) Monocytes (%) (Auto) 10.2 % (1.0-10.0) H Eosinophils (%) (Auto) 5.5 % (0.0-3.0) H Basophils (%) (Auto) 1.2 % (0.0-2.0) Sodium Level 133 MMOL/L (136-145) L Potassium Level 3.9 MMOL/L (3.5-5.1) Chloride Level 99 MMOL/L (98-107) Carbon Dioxide Level 28 MMOL/L (21-32) Anion Gap 6 mmol/L (5-15) Blood Urea Nitrogen 28 mg/dL (7-18) H Creatinine 1.1 MG/DL (0.55-1.30) Estimat Glomerular Filtration Rate 50.7 mL/min (>60) Glucose Level 102 MG/DL (74-106) Calcium Level 8.7 MG/DL (8.5-10.1) Phosphorus Level 4.1 MG/DL (2.5-4.9) Magnesium Level 1.9 MG/DL (1.8-2.4) Total Bilirubin 0.2 MG/DL (0.2-1.0) Aspartate Amino Transf (AST/SGOT) 19 U/L (15-37) Alanine Aminotransferase (ALT/SGPT) 15 U/L (12-78) Alkaline Phosphatase 196 U/L (46-116) H Total Protein 7.1 G/DL (6.4-8.2) Albumin 2.3 G/DL (3.4-5.0) L Globulin 4.8 g/dL Albumin/Globulin Ratio 0.5 (1.0-2.7) L Test 01/17/20 12:00 POC Whole Blood Glucose Pending Current Medications Medications (Trade) Dose Ordered Sig/Margarette Route PRN Reason Start Time Stop Time Status Last Admin Dose Admin Acetaminophen/ Butalbital/ Caffeine (Fioricet) 1 tab Q6H PRN ORAL headache 01/16/20 09:27 02/15/20 09:26 Al Hydroxide/Mg Hydroxide (Mylanta II) 30 ml Q6H PRN ORAL GAS/DYSPEPSIA 01/05/20 08:45 02/04/20 08:44 Chlorhexidine Gluconate (Patti-Hex 2%) 1 applic DAILY@1999 TOPIC 12/29/19 20:30 03/28/20 20:29 01/16/20 19:53 Clotrimazole (Lotrimin) 1 applic BID TOPIC 12/30/19 09:00 03/20/20 10:29 01/15/20 18:16 Dextrose 1,000 ml @ 0 mls/hr Q24H PRN IV PN interrupted or unavailable 12/29/19 20:30 01/28/20 20:29 Dextrose (Dextrose 50%) 25 ml Q30M PRN IV Hypoglycemia 12/29/19 20:30 03/17/20 19:59 Dextrose (Dextrose 50%) 50 ml Q30M PRN IV Hypoglycemia 12/29/19 20:30 03/17/20 19:59 Diphenhydramine HCl (Benadryl) 25 mg Q4H PRN IVP Itching 12/30/19 21:50 01/29/20 21:49 01/16/20 22:25 Diphenhydramine HCl (Benadryl) 25 mg Q6H PRN ORAL Itching 01/17/20 10:00 02/07/20 09:59 Fat Emulsion Intravenous 240 ml/Amino Acids/ Electrolytes/ Dextrose 1,920 ml @ 80 mls/hr Q24H IV 01/13/20 20:00 02/12/20 19:59 01/16/20 19:54 Hydromorphone HCl (Dilaudid) 1 mg Q3H PRN SUBQ Severe Breakthru Pain (>7) 01/15/20 13:06 01/22/20 13:05 01/17/20 14:39 Hydroxyzine HCl (Atarax) 50 mg Q6H PRN ORAL Itching 01/02/20 19:15 01/28/20 20:29 01/13/20 22:00 Insulin Aspart (NovoLOG) Q6HR SUBQ 12/30/19 00:00 03/18/20 00:00 01/15/20 18:16 Lansoprazole (Prevacid) 30 mg Q12HR ORAL 01/05/20 21:00 02/04/20 20:59 01/17/20 08:22 Mesalamine (Rowasa) 4 gm BEDTIME RECTAL 01/13/20 21:00 04/12/20 20:59 01/16/20 21:30 Ondansetron HCl (Zofran) 4 mg Q4H PRN IVP Nausea & Vomiting 12/30/19 21:40 01/29/20 21:39 01/17/20 16:37 Oxycodone/ Acetaminophen (Percocet 5-325) 1 tab Q4H PRN ORAL Moderate Pain (Pain Scale 4-6) 01/13/20 08:47 01/20/20 08:46 01/17/20 05:55 Phytonadione (Vitamin K) 10 mg ONCE A WEEK SUBQ 01/01/20 09:00 03/24/20 08:59 01/15/20 08:51 Pramipexole (Mirapex) 1 mg TWICE A DAY ORAL 01/15/20 18:00 02/02/20 02:59 01/17/20 08:22 Prochlorperazine (Compazine) 10 mg Q6H PRN IV Nausea & Vomiting 01/05/20 08:45 02/04/20 08:44 01/15/20 20:01 Quetiapine Fumarate (SEROqueL) 200 mg BEDTIME ORAL 12/29/19 21:00 01/31/20 20:59 01/16/20 21:30 Temazepam (RestoriL) 7.5 mg BEDTIME PRN ORAL Insomnia 01/15/20 13:15 01/22/20 13:14 01/16/20 20:04 Kevan Burgess MD Jan 17, 2020 17:50
--- NOTE | 2020-01-17 19:32 | NUR ---
HAND-OFF: Report given to VARGAS Hein. pt is stable conditon.
--- NOTE | 2020-01-17 19:35 | NUR ---
NURSE NOTES: report and pt received from VARGAS Stout. pt alert and oriented x4 with no acute s/s of distress. patient with back pain, will give pain medication when due. Ileo site noted and draining. PICC line noted clean dry and intact and running fluids as ordered. Plan of care discussed.
[2020-01-17 20:00] VITALS: BP 120/79
[2020-01-17] MEDS: Fat Emulsion Iv 20% 240 ML in Tpn 1,680 ML IV SCH (20:06)
[2020-01-17] MEDS: Dyna-Hex 2% Top Sol 2oz TOPIC SCH (20:06)
--- NOTE | 2020-01-17 21:30 | NUR ---
NURSE NOTES: while in pts room passing medications. pt said she wanted to have her restoril prior to taking the seroquel. I educated the patient on the harmful effects of MANGA ARTIST depression if both medications given concurrently. Patient agreed to receive the temazepam 1 hour after receiving the seroquel. Pt refused dressing change at this time stating "I want to sleep well tonight, just change my dressing tomorrow when the [employer] french teacher comes into my room." current assessment of dressing is clean dry and intact with no visible drainage. Will follow up with her request to change dressing after her labs are drawn.
[2020-01-17] MEDS: QUEtiapine 200mg tab ORAL SCH (21:44)
[2020-01-17] MEDS: Mesalamine Enema 4gm/60ml RECTAL SCH (21:44)
[2020-01-18] VITALS: BP 130/74
[2020-01-18 04:00] VITALS: BP 128/79
[2020-01-18] MEDS: HYDROmorphone 1mg/ml Carpuject SUBQ PRN ×2 (04:33→08:47)
[2020-01-18 05:52] LABS: BASOPHILS % (AUTO) 1.6 % (0.0-2.0); EOSINOPHILS % (AUTO) 4.3 % (0.0-3.0); HEMATOCRIT 29.5 % (37.0-47.0); HEMOGLOBIN 9.9 G/DL (12.0-16.0); LYMPHOCYTES % (AUTO) 21.5 % (20.0-45.0); MEAN CORPUSCULAR VOLUME 89 FL (80-99); MONOCYTES % (AUTO) 8.1 % (1.0-10.0); NEUTROPHILS % (AUTO) 64.5 % (45.0-75.0); PLATELET COUNT 476 K/UL (150-450); RED CELL DISTRIBUTION WIDTH 14.3 % (11.6-14.8); WHITE BLOOD COUNT 8.8 K/UL (4.8-10.8)
[2020-01-18] MEDS: NovoLOG Insulin Flexpen SUBQ SCH ×4 (06:00→18:00)
[2020-01-18 06:08] LABS: ALBUMIN 2.2 G/DL (3.4-5.0); ALBUMIN/GLOBULIN RATIO 0.5 (1.0-2.7); BILIRUBIN,TOTAL 0.2 MG/DL (0.2-1.0); CALCIUM 8.4 MG/DL (8.5-10.1); PHOSPHORUS 4.2 MG/DL (2.5-4.9); POTASSIUM 3.8 MMOL/L (3.5-5.1)
[2020-01-18 08:00] VITALS: BP 119/65
--- NOTE | 2020-01-18 08:00 | NUR ---
NURSE NOTES: Received report from Angel Luis RN, pt sleeping in bed with no signs of distress or other issues at this time time. surgical dressing dry and intact. Narcisa Ileostomy in place draining well, no leakages noted. over night out put: 200ml. urine out put: 500ml. call light within reach, bed in lowest position, side rales up x2. I will f/u as needed.
[2020-01-18] MEDS: Pramipexole 0.5mg tab ORAL SCH ×2 (08:47→18:48)
--- NOTE | 2020-01-18 09:43 | General Progress Note ---
Subjective ROS Limited/Unobtainable: Yes Allergies: Coded Allergies: AMPICILLIN (Verified Allergy, Unknown, 12/17/19) TETRACYCLINE (Verified Allergy, Unknown, 12/17/19) Objective Last 24 Hour Vital Signs Date Time Temp Pulse Resp B/P (MAP) Pulse Ox O2 Delivery O2 Flow Rate FiO2 01/18/20 08:00 98.6 99 16 119/65 (83) 95 01/18/20 04:00 98.5 96 14 128/79 (95) 94 01/18/20 00:00 98.7 81 15 130/74 (92) 95 01/17/20 21:00 Room Air 01/17/20 20:00 98.3 86 16 120/79 (93) 95 01/17/20 16:00 98.3 88 18 136/85 (102) 96 01/17/20 12:00 98.3 87 18 135/82 (99) 97 Intake and Output 01/17/20 01/18/20 19:00 07:00 Intake Total 960 ml 980 ml Output Total 800 ml 700 ml Balance 160 ml 280 ml Intake Oral 960 ml 340 ml IV Total 640 ml Output Urine Total 700 ml 500 ml Other 100 ml 200 ml # Voids 3 Laboratory Tests 01/17/20 12:00: POC Whole Blood Glucose [Pending] 01/17/20 18:11: POC Whole Blood Glucose [Pending] 01/17/20 23:45: POC Whole Blood Glucose 110H 01/18/20 05:15: White Blood Count 8.8, Red Blood Count 3.30L, Hemoglobin 9.9L, Hematocrit 29.5L, Mean Corpuscular Volume 89, Mean Corpuscular Hemoglobin 30.2, Mean Corpuscular Hemoglobin Concent 33.7, Red Cell Distribution Width 14.3, Platelet Count 476H, Mean Platelet Volume 6.2L, Neutrophils (%) (Auto) 64.5, Lymphocytes (%) (Auto) 21.5, Monocytes (%) (Auto) 8.1, Eosinophils (%) (Auto) 4.3H, Basophils (%) (Auto) 1.6, Sodium Level 130L, Potassium Level 3.8, Chloride Level 97L, Carbon Dioxide Level 27, Anion Gap 6, Blood Urea Nitrogen 29H, Creatinine 1.0, Estimat Glomerular Filtration Rate 56.5, Glucose Level 115H, Calcium Level 8.4L, Phosphorus Level 4.2, Magnesium Level 1.8, Total Bilirubin 0.2, Aspartate Amino Transf (AST/SGOT) 18, Alanine Aminotransferase (ALT/SGPT) 15, Alkaline Phosphatase 205H, Total Protein 7.0, Albumin 2.2L, Globulin 4.8, Albumin/Globulin Ratio 0.5L 01/18/20 05:26: POC Whole Blood Glucose 119H Height (Feet): 5 Height (Inches): 5.00 Weight (Pounds): 137 General Appearance: alert EENT: normal ENT inspection Neck: normal alignment Cardiovascular: normal rate Respiratory/Chest: decreased breath sounds Abdomen: hypoactive bowel sounds Extremities: non-tender Assessment/Plan Problem List: (1) Failed Ileocecal Pouch (2) Leg edema, left ICD Codes: R60.0 - Localized edema SNOMED: 526704586 (3) Abdominal pain ICD Codes: R10.9 - Unspecified abdominal pain SNOMED: 46727668 (4) Colostomy and enterostomy complications SNOMED: 268359476 (5) Ulcerative colitis ICD Codes: K51.90 - Ulcerative colitis, unspecified, without complications SNOMED: 10478713 Assessment/Plan: s/p J- pouchoscopy and hemostasis on Rowasa on TPN eating better but still c/o nausea c/o back pain fu surg recs fu labs will fu Amando Vaz MD Jan 18, 2020 09:43
--- NOTE | 2020-01-18 10:26 | General Progress Note ---
Progress Note Progress Note AVSS Not eating much - having nausea with SQ dilaudid Abdomen soft, wound starting to granulate Urine 1200 Ileostomy 300 labs stable except Na 130 Imp: Improving Plan; d/c SQ Dilaudid, change Zofran to ODT d/c TPN after current supply infused f/u labs discharge planning 24-48 hours Gio Mckeon MD Jan 18, 2020 10:26
[2020-01-18] MEDS: Sodium Chloride 1gm Tab ORAL SCH ×3 (11:47→18:47)
[2020-01-18 12:00] VITALS: BP 133/76
[2020-01-18] MEDS: oxyCODONE HCL/Acetaminophen 5/325mg ORAL PRN (12:06)
--- NOTE | 2020-01-18 15:00 | NUR ---
NURSE NOTES: surgical wound dressing changed as ordered. mild drainage noted.
[2020-01-18 16:00] VITALS: BP 124/68
--- NOTE | 2020-01-18 16:55 | Pulmonology Progress Note ---
Subjective ROS Limited/Unobtainable: Yes Constitutional: Reports: fatigue; Denies: fever HEENT: Repors: no symptoms Respiratory: Reports: no symptoms Cardiovascular: Reports: no symptoms Gastrointestinal/Abdominal: Denies: nausea, vomiting, diarrhea Genitourinary: Reports: no symptoms Psychiatric: Denies: depression Skin: Denies: rash Musculoskeletal: Denies: pain Allergies: Coded Allergies: AMPICILLIN (Verified Allergy, Unknown, 12/17/19) TETRACYCLINE (Verified Allergy, Unknown, 12/17/19) Objective Last 24 Hour Vital Signs Date Time Temp Pulse Resp B/P (MAP) Pulse Ox O2 Delivery O2 Flow Rate FiO2 01/18/20 16:00 98.3 89 16 124/68 (86) 99 01/18/20 12:36 98.5 01/18/20 12:00 98.5 90 16 133/76 (95) 97 01/18/20 08:00 98.6 99 16 119/65 (83) 95 01/18/20 04:00 98.5 96 14 128/79 (95) 94 01/18/20 00:00 98.7 81 15 130/74 (92) 95 01/17/20 21:00 Room Air 01/17/20 20:00 98.3 86 16 120/79 (93) 95 Intake and Output 01/17/20 01/18/20 19:00 07:00 Intake Total 960 ml 980 ml Output Total 800 ml 700 ml Balance 160 ml 280 ml Intake Oral 960 ml 340 ml IV Total 640 ml Output Urine Total 700 ml 500 ml Other 100 ml 200 ml # Voids 3 General Appearance: no acute distress Respiratory: chest wall non-tender, normal breath sounds, no respiratory distress, no accessory muscle use Cardiovascular: normal peripheral pulses, normal rate, regular rhythm, no gallop/murmur Abdomen: normal bowel sounds, soft, non tender, non distended Extremities: no cyanosis, no clubbing, no edema Laboratory Tests 01/17/20 18:11: POC Whole Blood Glucose [Pending] 01/17/20 23:45: POC Whole Blood Glucose 110H 01/18/20 05:15: White Blood Count 8.8, Red Blood Count 3.30L, Hemoglobin 9.9L, Hematocrit 29.5L, Mean Corpuscular Volume 89, Mean Corpuscular Hemoglobin 30.2, Mean Corpuscular Hemoglobin Concent 33.7, Red Cell Distribution Width 14.3, Platelet Count 476H, Mean Platelet Volume 6.2L, Neutrophils (%) (Auto) 64.5, Lymphocytes (%) (Auto) 21.5, Monocytes (%) (Auto) 8.1, Eosinophils (%) (Auto) 4.3H, Basophils (%) (Auto) 1.6, Sodium Level 130L, Potassium Level 3.8, Chloride Level 97L, Carbon Dioxide Level 27, Anion Gap 6, Blood Urea Nitrogen 29H, Creatinine 1.0, Estimat Glomerular Filtration Rate 56.5, Glucose Level 115H, Calcium Level 8.4L, Phosphorus Level 4.2, Magnesium Level 1.8, Total Bilirubin 0.2, Aspartate Amino Transf (AST/SGOT) 18, Alanine Aminotransferase (ALT/SGPT) 15, Alkaline Phosphatase 205H, Total Protein 7.0, Albumin 2.2L, Globulin 4.8, Albumin/Globulin Ratio 0.5L 01/18/20 05:26: POC Whole Blood Glucose 119H 01/18/20 11:46: POC Whole Blood Glucose [Pending] Current Medications Medications (Trade) Dose Ordered Sig/Margarette Route PRN Reason Start Time Stop Time Status Last Admin Dose Admin Acetaminophen/ Butalbital/ Caffeine (Fioricet) 1 tab Q6H PRN ORAL headache 01/16/20 09:27 02/15/20 09:26 Al Hydroxide/Mg Hydroxide (Mylanta II) 30 ml Q6H PRN ORAL GAS/DYSPEPSIA 01/05/20 08:45 02/04/20 08:44 Chlorhexidine Gluconate (Patti-Hex 2%) 1 applic DAILY@1999 TOPIC 12/29/19 20:30 03/28/20 20:29 01/17/20 20:06 Clotrimazole (Lotrimin) 1 applic BID TOPIC 12/30/19 09:00 03/20/20 10:29 01/18/20 08:48 Dextrose 1,000 ml @ 0 mls/hr Q24H PRN IV PN interrupted or unavailable 12/29/19 20:30 01/18/20 19:59 Dextrose (Dextrose 50%) 25 ml Q30M PRN IV Hypoglycemia 12/29/19 20:30 01/18/20 19:59 Dextrose (Dextrose 50%) 50 ml Q30M PRN IV Hypoglycemia 12/29/19 20:30 01/18/20 19:59 Diphenhydramine HCl (Benadryl) 25 mg Q4H PRN IVP Itching 12/30/19 21:50 01/29/20 21:49 01/16/20 22:25 Diphenhydramine HCl (Benadryl) 25 mg Q6H PRN ORAL Itching 01/17/20 10:00 02/07/20 09:59 01/18/20 14:43 Fat Emulsion Intravenous 240 ml/Amino Acids/ Electrolytes/ Dextrose 1,920 ml @ 80 mls/hr Q24H IV 01/13/20 20:00 01/18/20 19:59 01/17/20 20:06 Hydroxyzine HCl (Atarax) 50 mg Q6H PRN ORAL Itching 01/02/20 19:15 01/28/20 20:29 01/13/20 22:00 Insulin Aspart (NovoLOG) Q6HR SUBQ 12/30/19 00:00 01/18/20 19:59 01/15/20 18:16 Lansoprazole (Prevacid) 30 mg Q12HR ORAL 01/05/20 21:00 02/04/20 20:59 01/18/20 08:47 Mesalamine (Rowasa) 4 gm BEDTIME RECTAL 01/13/20 21:00 04/12/20 20:59 01/17/20 21:44 Ondansetron HCl (Zofran ODT) 4 mg Q4H PRN ORAL Nausea & Vomiting 01/18/20 10:15 02/17/20 10:14 01/18/20 14:41 Oxycodone/ Acetaminophen (Percocet 5-325) 1 tab Q4H PRN ORAL Moderate Pain (Pain Scale 4-6) 01/18/20 10:30 01/25/20 10:29 01/18/20 12:06 Phytonadione (Vitamin K) 10 mg ONCE A WEEK SUBQ 01/01/20 09:00 01/18/20 19:59 01/15/20 08:51 Pramipexole (Mirapex) 1 mg TWICE A DAY ORAL 01/15/20 18:00 02/02/20 02:59 01/18/20 08:47 Prochlorperazine (Compazine) 10 mg Q6H PRN IV Nausea & Vomiting 01/05/20 08:45 02/04/20 08:44 01/15/20 20:01 Quetiapine Fumarate (SEROqueL) 200 mg BEDTIME ORAL 12/29/19 21:00 01/31/20 20:59 01/17/20 21:44 Sodium Chloride (NaCl) 1 gm THREE TIMES A DAY ORAL 01/18/20 11:00 02/17/20 10:59 01/18/20 12:05 Temazepam (RestoriL) 7.5 mg BEDTIME PRN ORAL Insomnia 01/15/20 13:15 01/22/20 13:14 01/17/20 22:44 Assessment/Plan Assessment/Plan Pulmonary Progress Note Subjective ROS Limited/Unobtainable: No Constitutional: Denies: fever HEENT: Repors: no symptoms Respiratory: Reports: no symptoms Cardiovascular: Reports: no symptoms Gastrointestinal/Abdominal: Reports: other - less abdominal wound drainage ; Denies: nausea, vomiting, diarrhea Genitourinary: Reports: no symptoms Psychiatric: Denies: depression Skin: Denies: rash Musculoskeletal: Denies: pain Allergies: Coded Allergies: AMPICILLIN (Verified Allergy, Unknown, 12/17/19) TETRACYCLINE (Verified Allergy, Unknown, 12/17/19) Subjective comfortable no distress no sob off oxygen Objective Vital Signs noted General Appearance: no acute distress Respiratory: chest wall non-tender, normal breath sounds, no respiratory distress, no accessory muscle use Cardiovascular: normal peripheral pulses, normal rate, regular rhythm, no gallop/murmur Abdomen: normal bowel sounds, soft, non tender, non distended Extremities: no cyanosis, no clubbing, no edema Laboratory Tests noted Assessment/Plan IMPRESSION: 1. Status post laparotomy. 2. Ulcerative colitis. 3. Bilateral pleural effusions and atelectasis. minimal 4. anemia 5. severe PCM 6. On TPN 7. Hyponatremia DISCUSSION: Continue off oxygen and pulmonary hygiene as needed monitor for congestion - currently stable Pain control. DVT prophylaxis. GI prophylaxis. incentive missy monitor imaging for change and worsening atelectasis/effusions monitor oxygen needs impression, plan, and exam edited and reviewed in detail care discussed with Branden Luz MD Jan 18, 2020 16:55
--- NOTE | 2020-01-18 17:00 | NUR ---
NURSE NOTES: Nacrisa Ileostomy bag drainage.
--- NOTE | 2020-01-18 19:21 | NUR ---
NURSE HAND-OFF: Important Events on Shift:[] Patient Status: full code Diet: BCIR Pending Orders: am labs Pending Results/Labs:[] Pending MD notification:[] Latest Vital Signs: Temperature 98.3 , Pulse 89 , B/P 124 /68 , Respiratory Rate 16 , O2 SAT 99 , Room Air, O2 Flow Rate 3 . Vital Sign Comment: WNL/ stable Latest Jimenez Fall Score: 50 Fall Risk: High Risk Safety Measures: Call light Within Reach, Bed Alarm Zone 1, Side Rails Side Rails x2, Bed position Low and Locked. Fall Precautions: pt was able to ambulate around the unit with physical therapy and the use of FWW. Door Sign Patient Fall Education Report given to Laney KAYE, pt in stable condition. - during my shift wound dressing changed. - Narcisa Ileostomy bag changed due to leakage I&O's ileostomy: 400ml urine: 1250ml intake: pt stated that since she is not taking Dilaudid SQ, she feels with more appetite.
[2020-01-18 19:44] VITALS: BP 129/79
[2020-01-18] MEDS: Dyna-Hex 2% Top Sol 2oz TOPIC SCH (20:17)
[2020-01-18] MEDS: QUEtiapine 200mg tab ORAL SCH (20:17)
[2020-01-18] MEDS: Mesalamine Enema 4gm/60ml RECTAL SCH (20:18)
[2020-01-19] MEDS: oxyCODONE HCL/Acetaminophen 5/325mg ORAL PRN ×6 (00:26→21:59)
[2020-01-19 04:00] VITALS: BP 130/72
--- NOTE | 2020-01-19 05:51 | NUR ---
NURSE HAND-OFF: Important Events on Shift: No incidents of falls, injuries or trauma reported. pain managed well with ordered oral medication with moderate effect. TPN discontinued as ordered. vomited x 1, about 500 cc vomitus noted; zofran given with good results; complete bed change and sponge bath done. Purewick on with total UOP of 1600. Total ileo output= 200. patient resting now; more comfortable. Patient Status: stable at this time; no complaints Diet: see orders Pending Orders: AML Pending Results/Labs: of the above Pending MD notification: none Latest Vital Signs: Temperature 97.3 , Pulse 89 , B/P 130 /72 , Respiratory Rate 16 , O2 SAT 99 , Room Air, O2 Flow Rate 3 . Vital Sign Comment: WNL Latest Jimenez Fall Score: 60 Fall Risk: High Risk Safety Measures: Call light Within Reach, Bed Alarm Zone 1, Side Rails Side Rails x2, Bed position Low and Locked. Fall Precautions: On at all times Door Sign Patient Fall Education Report will be given to VARGAS Sanches . Addendum: 01/19/20 at 0638 by SANGITA MARTINZE additional nurse's notes: skin assessment done on initial rounds. Abdominal surgical site noted with 2 open areas; moderate amount of serosanguineous drainage on the lower open wound; dressing changed twice today with packing done as ordered. upper open wound with greenish scant drainage. patient tolerated procedure well without any complaints.
[2020-01-19 06:13] LABS: BASOPHILS % (AUTO) 1.4 % (0.0-2.0); EOSINOPHILS % (AUTO) 3.8 % (0.0-3.0); HEMATOCRIT 29.6 % (37.0-47.0); HEMOGLOBIN 9.9 G/DL (12.0-16.0); LYMPHOCYTES % (AUTO) 19.5 % (20.0-45.0); MEAN CORPUSCULAR VOLUME 89 FL (80-99); MONOCYTES % (AUTO) 9.6 % (1.0-10.0); NEUTROPHILS % (AUTO) 65.8 % (45.0-75.0); PLATELET COUNT 435 K/UL (150-450); RED BLOOD COUNT 3.33 M/UL (4.20-5.40); RED CELL DISTRIBUTION WIDTH 14.3 % (11.6-14.8); WHITE BLOOD COUNT 6.6 K/UL (4.8-10.8)
[2020-01-19 06:24] LABS: ALBUMIN 2.2 G/DL (3.4-5.0); ALBUMIN/GLOBULIN RATIO 0.5 (1.0-2.7); BILIRUBIN,TOTAL 0.3 MG/DL (0.2-1.0); CALCIUM 8.4 MG/DL (8.5-10.1); CREATININE 1.1 MG/DL (0.55-1.30); PHOSPHORUS 4.3 MG/DL (2.5-4.9); POTASSIUM 3.1 MMOL/L (3.5-5.1)
--- NOTE | 2020-01-19 06:37 | General Progress Note ---
Subjective ROS Limited/Unobtainable: No Allergies: Coded Allergies: AMPICILLIN (Verified Allergy, Unknown, 12/17/19) TETRACYCLINE (Verified Allergy, Unknown, 12/17/19) Objective Last 24 Hour Vital Signs Date Time Temp Pulse Resp B/P (MAP) Pulse Ox O2 Delivery O2 Flow Rate FiO2 01/19/20 04:00 97.3 89 16 130/72 (91) 99 01/18/20 21:00 Room Air 01/18/20 19:44 99.5 89 17 129/79 (96) 97 01/18/20 16:00 98.3 89 16 124/68 (86) 99 01/18/20 12:36 98.5 01/18/20 12:00 98.5 90 16 133/76 (95) 97 01/18/20 08:00 98.6 99 16 119/65 (83) 95 Intake and Output 01/18/20 01/19/20 19:00 07:00 Intake Total 1760 ml 200 ml Output Total 1650 ml 2300 ml Balance 110 ml -2100 ml Intake Oral 800 ml 200 ml IV Total 960 ml Output Urine Total 1250 ml 1600 ml Emesis 500 ml Other 400 ml 200 ml # Voids 6 Laboratory Tests 01/18/20 11:46: POC Whole Blood Glucose [Pending] 01/18/20 16:34: POC Whole Blood Glucose [Pending] 01/19/20 05:00: White Blood Count 6.6, Red Blood Count 3.33L, Hemoglobin 9.9L, Hematocrit 29.6L, Mean Corpuscular Volume 89, Mean Corpuscular Hemoglobin 29.8, Mean Corpuscular Hemoglobin Concent 33.6, Red Cell Distribution Width 14.3, Platelet Count 435, Mean Platelet Volume 5.6L, Neutrophils (%) (Auto) 65.8, Lymphocytes (%) (Auto) 19.5L, Monocytes (%) (Auto) 9.6, Eosinophils (%) (Auto) 3.8H, Basophils (%) (Auto) 1.4, Sodium Level 131L, Potassium Level 3.1L, Chloride Level 98, Carbon Dioxide Level 28, Anion Gap 5, Blood Urea Nitrogen 25H, Creatinine 1.1, Estimat Glomerular Filtration Rate 50.7, Glucose Level 88, Calcium Level 8.4L, Phosphorus Level 4.3, Magnesium Level 1.8, Total Bilirubin 0.3, Aspartate Amino Transf (AST/SGOT) 22, Alanine Aminotransferase (ALT/SGPT) [Pending], Alkaline Phosphatase 203H, Total Protein 6.7, Albumin 2.2L, Globulin 4.5, Album in/Globulin Ratio 0.5L Height (Feet): 5 Height (Inches): 5.00 Weight (Pounds): 137 General Appearance: no apparent distress EENT: normal ENT inspection Neck: supple Cardiovascular: normal rate, gallop/S3 Abdomen: decreased bowel sounds Extremities: non-tender Assessment/Plan Problem List: (1) Failed Ileocecal Pouch (2) Leg edema, left ICD Codes: R60.0 - Localized edema SNOMED: 448260908 (3) Abdominal pain ICD Codes: R10.9 - Unspecified abdominal pain SNOMED: 90209935 (4) Colostomy and enterostomy complications SNOMED: 592133541 (5) Ulcerative colitis ICD Codes: K51.90 - Ulcerative colitis, unspecified, without complications SNOMED: 07794694 Assessment/Plan: s/p J- pouchoscopy and hemostasis on Rowasa TPN>>> off now eating better but still c/o nausea and vomited last night c/o back pain fu surg recs fu labs will fu Amando Vaz MD Jan 19, 2020 06:37
[2020-01-19 08:00] VITALS: BP 134/76
--- NOTE | 2020-01-19 08:00 | NUR ---
NURSE NOTES: Received report from Laney RN, pt a/a/o x4 laying in bed with no signs of distress or other issues at this time. per report patient had an episode of emesis around 04:00, with an estimated out put of 500ml. Narcisa ileostomy in the RLQ, no leakage noted at this time. PICC line in place heplock. surgical dressing dry and intact. call light within reach, bed in lowest position. side rales up x2. I will f/u as needed.
[2020-01-19] MEDS: Sodium Chloride 1gm Tab ORAL SCH ×3 (08:08→17:25)
[2020-01-19] MEDS: Pramipexole 0.5mg tab ORAL SCH ×2 (08:08→17:25)
--- NOTE | 2020-01-19 09:02 | General Progress Note ---
Progress Note Progress Note AVSS Had 500cc emesis at 0500. Ate 30% yesterday with 1000cc po fluids. Feculent emesis per RN Abdomen soft, non-distended, wound with minimal drainage [id number] deep Urine 2850 Ileostomy 600 Emesis 500 WBC 6600 Hgb 9.9 Platelets 435,000 Na 131 K 3.1 Mg 1.8 Albumin 2.2 Imp: Emesis ? etiology (drank milk at hs - not usual for her) Plan: Resume IV fluids NS + 40meqKCL/l at 75cc/hr Monitor condition Unable to discharge Gio Mckeon MD Jan 19, 2020 09:02
[2020-01-19] MEDS: NS w/KCl 40mEq 1,000 ML IV SCH (09:36)
--- NOTE | 2020-01-19 10:28 | Pulmonology Progress Note ---
Subjective ROS Limited/Unobtainable: No Interval Events: None new HEENT: Repors: no symptoms Respiratory: Reports: no symptoms Cardiovascular: Reports: no symptoms Genitourinary: Reports: no symptoms Psychiatric: Denies: depression Skin: Denies: rash Musculoskeletal: Denies: pain Allergies: Coded Allergies: AMPICILLIN (Verified Allergy, Unknown, 12/17/19) TETRACYCLINE (Verified Allergy, Unknown, 12/17/19) Objective Last 24 Hour Vital Signs Date Time Temp Pulse Resp B/P (MAP) Pulse Ox O2 Delivery O2 Flow Rate FiO2 01/19/20 08:38 97.3 01/19/20 08:00 98.4 94 16 134/76 (95) 99 01/19/20 04:00 97.3 89 16 130/72 (91) 99 01/18/20 21:00 Room Air 01/18/20 19:44 99.5 89 17 129/79 (96) 97 01/18/20 16:00 98.3 89 16 124/68 (86) 99 01/18/20 12:36 98.5 01/18/20 12:00 98.5 90 16 133/76 (95) 97 Intake and Output 01/18/20 01/19/20 19:00 07:00 Intake Total 1760 ml 200 ml Output Total 1650 ml 2300 ml Balance 110 ml -2100 ml Intake Oral 800 ml 200 ml IV Total 960 ml Output Urine Total 1250 ml 1600 ml Emesis 500 ml Other 400 ml 200 ml # Voids 6 General Appearance: no acute distress Respiratory: chest wall non-tender, normal breath sounds, no respiratory distress, no accessory muscle use Cardiovascular: normal peripheral pulses, normal rate, regular rhythm, no gallop/murmur Abdomen: normal bowel sounds, soft, non tender, non distended Extremities: no cyanosis, no clubbing, no edema Laboratory Tests 01/18/20 11:46: POC Whole Blood Glucose [Pending] 01/18/20 16:34: POC Whole Blood Glucose [Pending] 01/19/20 05:00: White Blood Count 6.6, Red Blood Count 3.33L, Hemoglobin 9.9L, Hematocrit 29.6L, Mean Corpuscular Volume 89, Mean Corpuscular Hemoglobin 29.8, Mean Corpuscular Hemoglobin Concent 33.6, Red Cell Distribution Width 14.3, Platelet Count 435, Mean Platelet Volume 5.6L, Neutrophils (%) (Auto) 65.8, Lymphocytes (%) (Auto) 19.5L, Monocytes (%) (Auto) 9.6, Eosinophils (%) (Auto) 3.8H, Basophils (%) (Auto) 1.4, Sodium Level 131L, Potassium Level 3.1L, Chloride Level 98, Carbon Dioxide Level 28, Anion Gap 5, Blood Urea Nitrogen 25H, Creatinine 1.1, Estimat Glomerular Filtration Rate 50.7, Glucose Level 88, Calcium Level 8.4L, Phosphorus Level 4.3, Magnesium Level 1.8, Total Bilirubin 0.3, Aspartate Amino Transf (AST/SGOT) 22, Alanine Aminotransferase (ALT/SGPT) 17, Alkaline Phosphatase 203H, Total Protein 6.7, Albumin 2.2L, Globulin 4.5, Albumin/Gl obulin Ratio 0.5L Current Medications Medications (Trade) Dose Ordered Sig/Margarette Route PRN Reason Start Time Stop Time Status Last Admin Dose Admin Acetaminophen/ Butalbital/ Caffeine (Fioricet) 1 tab Q6H PRN ORAL headache 01/16/20 09:27 02/15/20 09:26 Al Hydroxide/Mg Hydroxide (Mylanta II) 30 ml Q6H PRN ORAL GAS/DYSPEPSIA 01/05/20 08:45 02/04/20 08:44 Chlorhexidine Gluconate (Patti-Hex 2%) 1 applic DAILY@1999 TOPIC 12/29/19 20:30 03/28/20 20:29 01/18/20 20:17 Clotrimazole (Lotrimin) 1 applic BID TOPIC 12/30/19 09:00 03/20/20 10:29 01/18/20 08:48 Diphenhydramine HCl (Benadryl) 25 mg Q4H PRN IVP Itching 12/30/19 21:50 01/29/20 21:49 01/16/20 22:25 Diphenhydramine HCl (Benadryl) 25 mg Q6H PRN ORAL Itching 01/17/20 10:00 02/07/20 09:59 01/18/20 14:43 Hydroxyzine HCl (Atarax) 50 mg Q6H PRN ORAL Itching 01/02/20 19:15 01/28/20 20:29 01/13/20 22:00 Lansoprazole (Prevacid) 30 mg Q12HR ORAL 01/05/20 21:00 02/04/20 20:59 01/19/20 08:08 Magnesium Sulfate 100 ml @ 100 mls/hr Q1H IVPB 01/19/20 10:00 01/19/20 11:59 01/19/20 09:36 Mesalamine (Rowasa) 4 gm BEDTIME RECTAL 01/13/20 21:00 04/12/20 20:59 01/18/20 20:18 Ondansetron HCl (Zofran ODT) 4 mg Q4H PRN ORAL Nausea & Vomiting 01/18/20 10:15 02/17/20 10:14 01/19/20 08:08 Oxycodone/ Acetaminophen (Percocet 5-325) 1 tab Q4H PRN ORAL Moderate Pain (Pain Scale 4-6) 01/18/20 10:30 01/25/20 10:29 01/19/20 08:08 Potassium Chloride/Sodium Chloride 1,000 ml @ 75 mls/hr [id number] IV 01/19/20 09:30 02/18/20 09:29 01/19/20 09:36 Pramipexole (Mirapex) 1 mg TWICE A DAY ORAL 01/15/20 18:00 02/02/20 02:59 01/19/20 08:08 Prochlorperazine (Compazine) 10 mg Q6H PRN IV Nausea & Vomiting 01/05/20 08:45 02/04/20 08:44 01/19/20 03:53 Quetiapine Fumarate (SEROqueL) 200 mg BEDTIME ORAL 12/29/19 21:00 01/31/20 20:59 01/18/20 20:17 Sodium Chloride (NaCl) 1 gm THREE TIMES A DAY ORAL 01/18/20 11:00 02/17/20 10:59 01/19/20 08:08 Temazepam (RestoriL) 7.5 mg BEDTIME PRN ORAL Insomnia 01/15/20 13:15 01/22/20 13:14 01/18/20 20:50 Assessment/Plan Assessment/Plan IMPRESSION: 1. Status post laparotomy. 2. Ulcerative colitis. 3. Bilateral pleural effuions and atelectasis. DISCUSSION: Postoperative care per Dr. Mckeon Continue oxygen and pulmonary hygiene. Currently saturating well on RA I will follow carefully. Pain control. DVT prophylaxis. GI prophylaxis. Onesimo Perales Omar Syed MD Jan 19, 2020 10:28
[2020-01-19 12:00] VITALS: BP 135/82
--- NOTE | 2020-01-19 12:32 | NUR ---
CASE MANAGEMENT:REVIEW SI; S/P POUCHOSCOPY + ENTEROSCOPY W/ABLATION BLEEDING/OOZING FROM SURGICAL SITE . LOWER EXTREMITY EDEMA . ANEMIA. 99.5 94 16 135/82 99% ON RA NA 131 K+ 3.1 BUN 25 ALP 203 ALB 2.2 IS;MAG SULFATE IV ONCE KCL/NS IV PERCOCET PO Q4 PRN MIRAPEX PO BID PREVACID PO Q12 MED SURG STATUS DCP;FROM HOME
--- NOTE | 2020-01-19 13:05 | NUR ---
RD ASSESSMENT & RECOMMENDATIONS SEE CARE ACTIVITY FOR COMPLETE ASSESSMENT DAILY ESTIMATED NEEDS: Needs based on Surgery/ 59kg 25-30 kcals/kg 7516-2778 total kcals 1-2 g protein/kg 59-118 g total protein 25-35 mL/kg 2874-7494 total fluid mLs NUTRITION DIAGNOSIS: Altered GI function R/T h/o UC, total colectomy, admitted w/ failed ileoanal J pouch with abdominal pain and J pouch bleeding as evidenced by s/p resection defunctionalized small bowel and ileoanal J pouch, revision, TPN DC'd. CURRENT DIET:BCIR LOW RESIDUE DIET + receives Ensure Clear BID PO DIET RECOMMENDATIONS: BCIR Low Residue diet as per MD ADDITIONAL RECOMMENDATIONS: * Calibrated bedscale wt or standing wt as able for accurate CBW * Monitor lytes, replete as needed * Monitor LFTs, BGs closely w/ TPN- OFF TPN * Ensure Clear BID added to tray (240kcal/8g prot per bottle) -> pt prefers Ensure CLEAR vs ENLIVE * Monitor PO intake closely, ability to taper and DC TPN-> NOW OFF TPN
[2020-01-19 16:00] VITALS: BP 129/80
--- NOTE | 2020-01-19 18:42 | Infectious Diseases Prog Note ---
Assessment/Plan Assessment/Plan ASSESSMENT AND PLAN: 1. e.coli uti, morganella uti, left leg cellulitis, ? reaction/atypical drug rash to aztreonam, allergies - ampicillin, tetracycline s/p surgery on 12/29/19 surgical abdominal fluid with e.coli - s-amikacin initial wound drainage culture with esbl e.coli and proteus - 2 + - sensitive to amikacin, f/u wound culture with 1 + e.coli/proteus fungemia risk, TPN - s/p amikacin, flagyl, micafungin for 14 days post-op - favor not to retreat f/u wound culture since same organisms, less drainage off abx and already received 2 weeks tx - risks > benefits - CT abdomen and pelvis - no abscess - monitor labs - leukocytosis resolved - management per Dr. Mckeon - clinically improving, less wound drainage, notes reviewed 2. skin care per protocol - ? fungal component, on clotrimazole cream 3. 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 4. History of Narcisa ileostomy. 5. History of ulcerative colitis. 6. History of multiple abdominal surgeries. 7. History of cholecystectomy. 8. History of peristomal hernia and mesh. 9. History of colectomy. 10. Continue treatment per Dr. Mckeon and consultants. 11. Allergies to ampicillin, tetracycline. She gets hives with ampicillin. 12. Social history is negative. 13. Family history is noncontributory. 14. MAR is noted. 15. Case was discussed with RN. 16. Case was discussed with Dr. Mckeon. 17. Case was discussed with the patient. Subjective Constitutional: Denies: fever HEENT: Denies: congestion Respiratory: Denies: shortness of breath Cardiovascular: Denies: chest pain Gastrointestinal/Abdominal: Denies: nausea, vomiting, diarrhea Genitourinary: Reports: other Neurologic: Denies: headache Psychiatric: Denies: depression Skin: Denies: rash Endocrine: Denies: other Hematologic: Denies: bleeding Musculoskeletal: Denies: pain Allergies: Coded Allergies: AMPICILLIN (Verified Allergy, Unknown, 12/17/19) TETRACYCLINE (Verified Allergy, Unknown, 12/17/19) Objective Last 24 Hour Vital Signs Date Time Temp Pulse Resp B/P (MAP) Pulse Ox O2 Delivery O2 Flow Rate FiO2 01/19/20 16:00 97.9 90 18 129/80 (96) 97 01/19/20 13:41 98.8 01/19/20 12:00 98.8 87 16 135/82 (99) 99 01/19/20 08:38 97.3 01/19/20 08:00 98.4 94 16 134/76 (95) 99 01/19/20 04:00 97.3 89 16 130/72 (91) 99 01/18/20 21:00 Room Air 01/18/20 19:44 99.5 89 17 129/79 (96) 97 Height (Feet): 5 Height (Inches): 5.00 Weight (Pounds): 137 General Appearance: no acute distress HEENT: normocephalic, atraumatic Respiratory/Chest: lungs clear, normal breath sounds, no respiratory distress, no accessory muscle use Cardiovascular: normal rate, regular rhythm, no gallop/murmur, no JVD Abdomen: normal bowel sounds, soft, non tender, no organomegaly, non distended Genitourinary: other - no zheng Extremities: no cyanosis Skin: no rash, other - incision covered Neurologic/Psychiatric: ladle liner II-XII grossly normal, alert, oriented x 3, responsive Lymphatic: no neck adenopathy Musculoskeletal: no effusion Chest x-ray - Procedure: XRAY Chest 1v Indication: Cough Technique: One view of the chest Comparison: none Findings: There is diffuse mild bilateral interstitial disease and central bronchial wall thickening. No focal airspace consolidation. No effusions. Normal heart size Impression: Acuity indeterminate mild interstitial disease. Correlate with clinical findings. No focal infiltrates CT abdomen and pelvis: Impression: Postsurgical changes, as described, including right lower quadrant simple ileostomy, prior total colectomy, and J-pouch. There is abundant anterior pelvic apparent defunctionalized small bowel which appears to be in continuity with and ileoanal J-pouch remnant. Most likely, this just represents old isolated small bowel, but the possibility of any of this representing either tumor or abscess is not completely excludable. Small parastomal hernia within the right lower quadrant ileostomy. This appears to be nonobstructive. Equivocal mild wall thickening of left upper quadrant jejunal loops. Enteritis is possible and correlation with clinical findings is recommended Age-indeterminate L2 vertebral body compression fracture deformity. Suspect old. Consider MRI if clinically relevant Prior cholecystectomy Inferior vena cava filter Findings discussed by phone Chest x-ray - 12/29/19 - FINDINGS: Lungs: Retrocardiac atelectasis versus infiltrate. No consolidation or interstitial edema. Pleural space: Trace left pleural effusion. Heart: Unremarkable. No cardiomegaly. Bones/joints: Unremarkable. Tubes, lines and devices: Endotracheal tube terminates 3 cm above the kyung. Left upper extremity PICC line terminates within the SVC. IMPRESSION: 1. Endotracheal tube terminates 3 cm above the kyung. 2. Left upper extremity PICC line terminates within the SVC. 3. Retrocardiac atelectasis versus infiltrate. 4. Trace left pleural effusion. Chest x-ray - 12/31/19 - Procedure: XRAY Chest 1v Procedure: XRAY Chest 1v Reason for study: Shortness of breath. Comparison films: 12/29/2019. FINDINGS: Endotracheal tube has been removed. Left PICC line remains in place. There is slight worsening of congestion and edema. Cardiac and mediastinal silhouette are within normal limits. CP angles are sharp. The bony thorax appear unremarkable. IMPRESSION: Slight worsening of congestion and edema. Chest x-ray - 01/02/20 - Procedure: XRAY Chest 1v Indication: Reason For Exam: SOB Technique: Single AP view of the chest. Comparison: Chest radiograph dated 12/31/2019 Findings: The cardiomediastinal silhouette is unchanged in appearance. No new airspace consolidation. Stable pulmonary vascular congestion. Demonstration of streaky retrocardiac airspace opacity. No pneumothorax or pleural effusion. Unchanged left PICC. IMPRESSION: No significant change from prior examination. CT abdomen and pelvis- 01/06/20 - Impression: Postsurgical changes, as described. Small amount of fluid and gas is seen along the incision no definite incisional. Incidental abscess demonstrated. Slow traversal of contrast small bowel but no definite evidence of small bowel obstruction Interim Zheng catheter placement Other findings as noted, including stable old healed fracture deformity left pubic bone, inferior vena cava filter, prior cholecystectomy, L2 vertebral body compression fracture CT - abdomen and pelvis - 01/12/20 - Impression: Postsurgical changes, as described Small amount of fluid just deep to the right side of the inferior rectus abdominis muscle in the anterior pelvis, without definite contrast extravasation to sugg est enteric fistula. Significance uncertain. Small amount of gas and fluid within the incision again demonstrated. No evidence of small bowel obstruction or graft bilateral small pleural effusions and posterior compressive pulmonary parenchymal atelectasis Other findings as noted, including atrophic spleen, prior cholecystectomy, inferior vena cava filter, Zheng catheter, L2 vertebral body compression fracture deformity, degenerative spondylosis CT abdomen and pelvis - 01/12/20 - Impression: Postsurgical changes, as described Small amount of fluid just deep to the right side of the inferior rectus abdominis muscle in the anterior pelvis, without definite contrast extravasation to suggest enteric fistula. Significance uncertain. Small amount of gas and fluid within the incision again demonstrated. No evidence of small bowel obstruction or graft bilateral small pleural effusions and posterior compressive pulmonary parenchymal atelectasis Other findings as noted, including atrophic spleen, prior cholecystectomy, inferior vena cava filter, Zheng catheter, L2 vertebral body compression fracture deformity, degenerative spondylosis Microbiology Date/Time Source Procedure Growth Status 01/12/20 11:28 Abdomen Gram Stain - Final Complete 01/12/20 11:28 Wound Culture - Final Escherichia Coli Proteus Mirabilis Esbl Complete 01/05/20 00:48 Stool Clostridium difficile Toxin Assay - Final Complete 01/03/20 16:00 Other Gram Stain - Final Complete 01/03/20 16:00 Wound Culture - Final Escherichia Coli Proteus Mirabilis Esbl Complete 01/01/20 16:00 Blood Blood Culture - Final NO GROWTH AFTER 5 DAYS Complete 12/27/19 11:13 Nasopharynx SARS-CoV-2 RdRp Gene Assay - Final Complete 12/22/19 19:30 Urine,Clean Catch Urine Culture - Final Morganella Morg Spp Morganii Complete Laboratory Tests Test 01/19/20 05:00 White Blood Count 6.6 K/UL (4.8-10.8) Red Blood Count 3.33 M/UL (4.20-5.40) L Hemoglobin 9.9 G/DL (12.0-16.0) L Hematocrit 29.6 % (37.0-47.0) L Mean Corpuscular Volume 89 FL (80-99) Mean Corpuscular Hemoglobin 29.8 PG (27.0-31.0) Mean Corpuscular Hemoglobin Concent 33.6 G/DL (32.0-36.0) Red Cell Distribution Width 14.3 % (11.6-14.8) Platelet Count 435 K/UL (150-450) Mean Platelet Volume 5.6 FL (6.5-10.1) L Neutrophils (%) (Auto) 65.8 % (45.0-75.0) Lymphocytes (%) (Auto) 19.5 % (20.0-45.0) L Monocytes (%) (Auto) 9.6 % (1.0-10.0) Eosinophils (%) (Auto) 3.8 % (0.0-3.0) H Basophils (%) (Auto) 1.4 % (0.0-2.0) Sodium Level 131 MMOL/L (136-145) L Potassium Level 3.1 MMOL/L (3.5-5.1) L Chloride Level 98 MMOL/L (98-107) Carbon Dioxide Level 28 MMOL/L (21-32) Anion Gap 5 mmol/L (5-15) Blood Urea Nitrogen 25 mg/dL (7-18) H Creatinine 1.1 MG/DL (0.55-1.30) Estimat Glomerular Filtration Rate 50.7 mL/min (>60) Glucose Level 88 MG/DL (74-106) Calcium Level 8.4 MG/DL (8.5-10.1) L Phosphorus Level 4.3 MG/DL (2.5-4.9) Magnesium Level 1.8 MG/DL (1.8-2.4) Total Bilirubin 0.3 MG/DL (0.2-1.0) Aspartate Amino Transf (AST/SGOT) 22 U/L (15-37) Alanine Aminotransferase (ALT/SGPT) 17 U/L (12-78) Alkaline Phosphatase 203 U/L (46-116) H Total Protein 6.7 G/DL (6.4-8.2) Albumin 2.2 G/DL (3.4-5.0) L Globulin 4.5 g/dL Albumin/Globulin Ratio 0.5 (1.0-2.7) L Current Medications Medications (Trade) Dose Ordered Sig/Margarette Route PRN Reason Start Time Stop Time Status Last Admin Dose Admin Acetaminophen/ Butalbital/ Caffeine (Fioricet) 1 tab Q6H PRN ORAL headache 01/16/20 09:27 02/15/20 09:26 Al Hydroxide/Mg Hydroxide (Mylanta II) 30 ml Q6H PRN ORAL GAS/DYSPEPSIA 01/05/20 08:45 02/04/20 08:44 Chlorhexidine Gluconate (Patti-Hex 2%) 1 applic DAILY@1999 TOPIC 12/29/19 20:30 12 20:29 01/18/20 20:17 Clotrimazole (Lotrimin) 1 applic BID TOPIC 12/30/19 09:00 03/20/20 10:29 01/18/20 08:48 Diphenhydramine HCl (Benadryl) 25 mg Q4H PRN IVP Itching 12/30/19 21:50 01/29/20 21:49 01/16/20 22:25 Diphenhydramine HCl (Benadryl) 25 mg Q6H PRN ORAL Itching 01/17/20 10:00 02/07/20 09:59 01/18/20 14:43 Hydroxyzine HCl (Atarax) 50 mg Q6H PRN ORAL Itching 01/02/20 19:15 01/28/20 20:29 01/13/20 22:00 Lansoprazole (Prevacid) 30 mg Q12HR ORAL 01/05/20 21:00 02/04/20 20:59 01/19/20 08:08 Mesalamine (Rowasa) 4 gm BEDTIME RECTAL 01/13/20 21:00 04/12/20 20:59 01/18/20 20:18 Ondansetron HCl (Zofran ODT) 4 mg Q4H PRN ORAL Nausea & Vomiting 01/18/20 10:15 02/17/20 10:14 01/19/20 17:25 Oxycodone/ Acetaminophen (Percocet 5-325) 1 tab Q4H PRN ORAL Moderate Pain (Pain Scale 4-6) 01/18/20 10:30 01/25/20 10:29 01/19/20 17:25 Potassium Chloride/Sodium Chloride 1,000 ml @ 75 mls/hr [id number] IV 01/19/20 09:30 02/18/20 09:29 01/19/20 09:36 Pramipexole (Mirapex) 1 mg TWICE A DAY ORAL 01/15/20 18:00 02/02/20 02:59 01/19/20 17:25 Prochlorperazine (Compazine) 10 mg Q6H PRN IV Nausea & Vomiting 01/05/20 08:45 02/04/20 08:44 01/19/20 03:53 Quetiapine Fumarate (SEROqueL) 200 mg BEDTIME ORAL 12/29/19 21:00 01/31/20 20:59 01/18/20 20:17 Sodium Chloride (NaCl) 1 gm THREE TIMES A DAY ORAL 01/18/20 11:00 02/17/20 10:59 01/19/20 17:25 Temazepam (RestoriL) 7.5 mg BEDTIME PRN ORAL Insomnia 01/15/20 13:15 01/22/20 13:14 01/18/20 20:50 Kevan Burgess MD Jan 19, 2020 18:42
--- NOTE | 2020-01-19 19:30 | NUR ---
NURSE NOTES: Patient awake in bed, alert and oriented x4, on room air, no SOB noted. With PICC on left upper arm double lumen cath connected is NS with KCL 40 @ 75cc/hr. Ileostomy on right lower quadrant draining with yellowish brown fluid in colostomy bag. Dressing on mid abdomen dry and intact to dress before bedtime. Per AM nurse Verónica, needs to transfuse 1 unit pRBC which is available in blood bank. Was ordered by Dr. Mckeon at bedside and confirmed on his note. Charge nurse Laney made aware. Instructed patient to use call light for assistance and plan of care. Call light and needs in reach. Bed in lowest and lock engaged. Will continue plan of care.
--- NOTE | 2020-01-19 19:33 | NUR ---
NURSE HAND-OFF: Important Events on Shift:[] Patient Status: full code. stable condition Diet: BCIR diet Pending Orders: am labs Pending Results/Labs:CBC. BMP, MG Pending MD notification: Latest Vital Signs: Temperature 97.9 , Pulse 90 , B/P 129 /80 , Respiratory Rate 18 , O2 SAT 97 , Room Air, O2 Flow Rate 3 . Vital Sign Comment: stable Latest Jimenez Fall Score: 60 Fall Risk: High Risk Safety Measures: Call light Within Reach, Bed Alarm Zone 1, Side Rails Side Rails x2, Bed position Low and Locked. Fall Precautions: patient needs assistance for ambulation Door Sign Patient Fall Education Report given to Tabby KAYE, pt is stable condition. - during my shift no episodes of emesis, however patient still complaining of nausea. which Zofran was given x3. patient is also complaining of abd pain, percocet was given x3 as indicated by MD. I&O's Ileostomy: 275ml Urine: 1250ml
[2020-01-19 20:00] VITALS: BP 135/80
--- NOTE | 2020-01-19 20:02 | NUR ---
NURSE'S NOTES: this RN and VARGAS Menchaca received verbal endorsement from outgoing RN Verónica that a verbal order to transfuse was received from Dr. Mckeon while he as at the patient's bedside. This was also confirmed in Dr. Mckeon's notes written this morning about said plan. per Verónica RN's endorsement order to tranfuse 1 unit PRBC was made. Nursing Note Specialist Ai Galeano also aware of this.
[2020-01-19] MEDS: Mesalamine Enema 4gm/60ml RECTAL SCH (20:57)
[2020-01-19] MEDS: Dyna-Hex 2% Top Sol 2oz TOPIC SCH (20:57)
--- NOTE | 2020-01-19 21:10 | NUR ---
NURSE NOTES: Patient was able to administer and tolerated well the Mesalamine enema by herself with RN supervision.
[2020-01-19] MEDS: QUEtiapine 200mg tab ORAL SCH (22:57)
[2020-01-20] VITALS: BP 118/71
--- NOTE | 2020-01-20 00:30 | NUR ---
NURSE NOTES: Transfused 1 unit pRBC without adverse reaction. Patient tolerated well. Vital signs are stable.
[2020-01-20] MEDS: oxyCODONE HCL/Acetaminophen 5/325mg ORAL PRN ×2 (03:50→08:41)
[2020-01-20] MEDS: NS w/KCl 40mEq 1,000 ML IV SCH (03:57)
[2020-01-20 04:00] VITALS: BP 138/92
[2020-01-20 06:29] LABS: BASOPHILS % (AUTO) 1.4 % (0.0-2.0); EOSINOPHILS % (AUTO) 4.4 % (0.0-3.0); HEMATOCRIT 36.3 % (37.0-47.0); HEMOGLOBIN 12.3 G/DL (12.0-16.0); LYMPHOCYTES % (AUTO) 16.5 % (20.0-45.0); MEAN CORPUSCULAR VOLUME 89 FL (80-99); MONOCYTES % (AUTO) 8.8 % (1.0-10.0); NEUTROPHILS % (AUTO) 68.9 % (45.0-75.0); PLATELET COUNT 454 K/UL (150-450); RED BLOOD COUNT 4.07 M/UL (4.20-5.40); RED CELL DISTRIBUTION WIDTH 14.4 % (11.6-14.8); WHITE BLOOD COUNT 7.1 K/UL (4.8-10.8)
--- NOTE | 2020-01-20 07:00 | NUR ---
NURSE HAND-OFF: Important Events on Shift: strict i&o, pain mgt Patient Status: stable Diet: BCIR low residue Pending Orders: am labs Pending Results/Labs:cbc, cmp, mg, phos Pending MD notification: Latest Vital Signs: Temperature 97.7 , Pulse 98 , B/P 138 /92 , Respiratory Rate 20 , O2 SAT 96 , Room Air, O2 Flow Rate 3 . Vital Sign Comment: Latest Jimenez Fall Score: 60 Fall Risk: High Risk Safety Measures: Call light Within Reach, Bed Alarm Zone 1, Side Rails Side Rails x2, Bed position Low and Locked. Fall Precautions: Door Sign Patient Fall Education
[2020-01-20 07:02] LABS: ALANINE AMINOTRANSFERASE 19 U/L (12-78); ALBUMIN 2.6 G/DL (3.4-5.0); BLOOD UREA NITROGEN 16 mg/dL (7-18); CALCIUM 8.5 MG/DL (8.5-10.1); CARBON DIOXIDE 23 MMOL/L (21-32); CREATININE 1.2 MG/DL (0.55-1.30); PHOSPHORUS 4.3 MG/DL (2.5-4.9)
[2020-01-20 07:26] LABS: ALKALINE PHOSPHATASE 235 U/L (46-116); BILIRUBIN,TOTAL 0.4 MG/DL (0.2-1.0); CHLORIDE 99 MMOL/L (98-107); POTASSIUM 3.6 MMOL/L (3.5-5.1); SODIUM 131 MMOL/L (136-145)
--- NOTE | 2020-01-20 07:33 | NUR ---
HAND-OFF: Report given to VARGAS Brooks.
--- NOTE | 2020-01-20 07:35 | NUR ---
NURSE NOTES: PATIENT RECEIVED IN STABLE CONDITION. PAIN CONTROLLED. TOLERATING BCIR DIET. RAISSA ILEOSTOMY APPLIANCE INTACT. DISCUSSED PLAN OF CARE FOR THE DAY. VERBALIZED UNDERSTANDING. BED IN LOW AND LOCKED POSITION. CALL LIGHT WITHIN REACH.
[2020-01-20 08:00] VITALS: BP 134/80
[2020-01-20] MEDS: Pramipexole 0.5mg tab ORAL SCH (08:41)
[2020-01-20] MEDS: Sodium Chloride 1gm Tab ORAL SCH ×2 (08:41→13:20)
[2020-01-20] MEDS ORDERED: Sodium Chloride 1gm Tab ORAL SCH (08:51)
--- NOTE | 2020-01-20 08:51 | General Progress Note ---
Progress Note Progress Note Doing well. No further emesis - tolerating diet fairly well Abdomen soft, wound starting to granulate, no drainage Ileostomy stable Urine 2250 Ileostomy 575 WBC 7100 Hgb 12.3 (had 1 unit PRBC) Na 131 - will resume her BID oral sodium supplements 1gm K up 3.6 BUN down 16 Albumin 2.5 Imp: Stable Plan: Discharge with supplies, to self-pack wound TID and home health RN care Rx: Percocet 5/325, Zofran ODT, Restoril 7.5 mg, Mesalamine rectal enema vieyra spension 4gm qhs f/u office 01/27 and prn Instructions, limitations, supplies provided/discussed Gio Mckeon MD Jan 20, 2020 08:51
[2020-01-20 08:52] LABS: ASPARTATE AMINO TRANSFERASE 26 U/L (15-37)
--- NOTE | 2020-01-20 09:35 | Pulmonology Progress Note ---
Subjective ROS Limited/Unobtainable: No Interval Events: None new Constitutional: Denies: fever HEENT: Repors: no symptoms Respiratory: Reports: no symptoms Cardiovascular: Reports: no symptoms Gastrointestinal/Abdominal: Denies: nausea, vomiting, diarrhea Genitourinary: Reports: no symptoms Psychiatric: Denies: depression Skin: Denies: rash Musculoskeletal: Denies: pain Allergies: Coded Allergies: AMPICILLIN (Verified Allergy, Unknown, 12/17/19) TETRACYCLINE (Verified Allergy, Unknown, 12/17/19) Objective Last 24 Hour Vital Signs Date Time Temp Pulse Resp B/P (MAP) Pulse Ox O2 Delivery O2 Flow Rate FiO2 01/20/20 08:00 98.1 93 20 134/80 (98) 97 01/20/20 04:00 97.7 98 20 138/92 (107) 96 01/20/20 00:00 98.2 95 18 118/71 (87) 95 01/19/20 22:29 98.2 01/19/20 21:00 Room Air 01/19/20 20:00 98.2 95 18 135/80 (98) 94 01/19/20 17:55 97.9 01/19/20 16:00 97.9 90 18 129/80 (96) 97 01/19/20 13:41 98.8 01/19/20 12:00 98.8 87 16 135/82 (99) 99 Intake and Output 01/19/20 01/20/20 19:00 07:00 Intake Total 708 ml 300 ml Output Total 1525 ml 1300 ml Balance -817 ml -1000 ml Intake Oral 708 ml 300 ml Output Urine Total 1250 ml 1000 ml Other 275 ml 300 ml General Appearance: no acute distress Respiratory: chest wall non-tender, normal breath sounds, no respiratory distress, no accessory muscle use Cardiovascular: normal peripheral pulses, normal rate, regular rhythm, no gallop/murmur Abdomen: normal bowel sounds, soft, non tender, non distended Extremities: no cyanosis, no clubbing, no edema Laboratory Tests 01/20/20 05:05: White Blood Count 7.1, Red Blood Count 4.07L, Hemoglobin 12.3, Hematocrit 36.3L, Mean Corpuscular Volume 89, Mean Corpuscular Hemoglobin 30.3, Mean Corpuscular Hemoglobin Concent 33.9, Red Cell Distribution Width 14.4, Platelet Count 454H, Mean Platelet Volume 5.9L, Neutrophils (%) (Auto) 68.9, Lymphocytes (%) (Auto) 16.5L, Monocytes (%) (Auto) 8.8, Eosinophils (%) (Auto) 4.4H, Basophils (%) (Auto) 1.4, Sodium Level 131L, Potassium Level 3.6, Chloride Level 99, Carbon Dioxide Level 23, Blood Urea Nitrogen 16, Creatinine 1.2, Estimat Glomerular Filtration Rate 45.9, Glucose Level 85, Calcium Level 8.5, Phosphorus Level 4.3, Magnesium Level 2.3, Total Bilirubin 0.4, Aspartate Amino Transf (AST/SGOT) 26, Alanine Aminotransferase (ALT/SGPT) 19, Alkaline Phosphatase 235H, Total Protein 6.7, Albumin 2.6L, Globulin 4.1 Current Medications Medications (Trade) Dose Ordered Sig/Margarette Route PRN Reason Start Time Stop Time Status Last Admin Dose Admin Acetaminophen/ Butalbital/ Caffeine (Fioricet) 1 tab Q6H PRN ORAL headache 01/16/20 09:27 02/15/20 09:26 Al Hydroxide/Mg Hydroxide (Mylanta II) 30 ml Q6H PRN ORAL GAS/DYSPEPSIA 01/05/20 08:45 02/04/20 08:44 Chlorhexidine Gluconate (Patti-Hex 2%) 1 applic DAILY@1999 TOPIC 12/29/19 20:30 03/28/20 20:29 01/19/20 20:57 Clotrimazole (Lotrimin) 1 applic BID TOPIC 12/30/19 09:00 03/20/20 10:29 01/18/20 08:48 Diphenhydramine HCl (Benadryl) 25 mg Q4H PRN IVP Itching 12/30/19 21:50 01/29/20 21:49 01/16/20 22:25 Diphenhydramine HCl (Benadryl) 25 mg Q6H PRN ORAL Itching 01/17/20 10:00 02/07/20 09:59 01/18/20 14:43 Hydroxyzine HCl (Atarax) 50 mg Q6H PRN ORAL Itching 01/02/20 19:15 01/28/20 20:29 01/13/20 22:00 Lansoprazole (Prevacid) 30 mg Q12HR ORAL 01/05/20 21:00 02/04/20 20:59 01/20/20 08:41 Mesalamine (Rowasa) 4 gm BEDTIME RECTAL 01/13/20 21:00 04/12/20 20:59 01/19/20 20:57 Ondansetron HCl (Zofran ODT) 4 mg Q4H PRN ORAL Nausea & Vomiting 01/18/20 10:15 02/17/20 10:14 01/20/20 03:50 Oxycodone/ Acetaminophen (Percocet 5-325) 1 tab Q4H PRN ORAL Moderate Pain (Pain Scale 4-6) 01/18/20 10:30 01/25/20 10:29 01/20/20 08:41 Pramipexole (Mirapex) 1 mg TWICE A DAY ORAL 01/15/20 18:00 02/02/20 02:59 01/20/20 08:41 Prochlorperazine (Compazine) 10 mg Q6H PRN IV Nausea & Vomiting 01/05/20 08:45 02/04/20 08:44 01/19/20 03:53 Quetiapine Fumarate (SEROqueL) 200 mg BEDTIME ORAL 12/29/19 21:00 01/31/20 20:59 01/19/20 22:57 Sodium Chloride (NaCl) 1 gm ONCE ORAL 01/20/20 08:51 01/20/20 11:00 Sodium Chloride (NaCl) 1 gm THREE TIMES A DAY ORAL 01/18/20 11:00 02/17/20 10:59 01/20/20 08:41 Temazepam (RestoriL) 7.5 mg BEDTIME PRN ORAL Insomnia 01/15/20 13:15 01/22/20 13:14 01/19/20 20:57 Assessment/Plan Assessment/Plan IMPRESSION: 1. Status post laparotomy. 2. Ulcerative colitis. 3. Bilateral pleural effuions and atelectasis. DISCUSSION: Postoperative care per Dr. Mckeon Continue oxygen and pulmonary hygiene. Currently saturating well on RA I will follow carefully. Pain control. DVT prophylaxis. GI prophylaxis. REviewed surgery and ID notes DC planning Onesimo Perales Omar Syed MD Jan 20, 2020 09:35
--- NOTE | 2020-01-20 10:05 | NUR ---
*-*DISCHARGE PLANNED*-* PATIENT HAS BEEN ACCEPTED AND WILL BE SERVICED WITH : [facility] P: [phone] S/W TOMASA, WILL SERVICE PATIENT
--- NOTE | 2020-01-20 11:58 | General Progress Note ---
Subjective ROS Limited/Unobtainable: Yes Allergies: Coded Allergies: AMPICILLIN (Verified Allergy, Unknown, 12/17/19) TETRACYCLINE (Verified Allergy, Unknown, 12/17/19) Objective Last 24 Hour Vital Signs Date Time Temp Pulse Resp B/P (MAP) Pulse Ox O2 Delivery O2 Flow Rate FiO2 01/20/20 09:11 97.7 01/20/20 08:00 98.1 93 20 134/80 (98) 97 01/20/20 04:00 97.7 98 20 138/92 (107) 96 01/20/20 00:00 98.2 95 18 118/71 (87) 95 01/19/20 22:29 98.2 01/19/20 21:00 Room Air 01/19/20 20:00 98.2 95 18 135/80 (98) 94 01/19/20 17:55 97.9 01/19/20 16:00 97.9 90 18 129/80 (96) 97 01/19/20 13:41 98.8 01/19/20 12:00 98.8 87 16 135/82 (99) 99 Intake and Output 01/19/20 01/20/20 19:00 07:00 Intake Total 708 ml 300 ml Output Total 1525 ml 1300 ml Balance -817 ml -1000 ml Intake Oral 708 ml 300 ml Output Urine Total 1250 ml 1000 ml Other 275 ml 300 ml Laboratory Tests 01/20/20 05:05: White Blood Count 7.1, Red Blood Count 4.07L, Hemoglobin 12.3, Hematocrit 36.3L, Mean Corpuscular Volume 89, Mean Corpuscular Hemoglobin 30.3, Mean Corpuscular Hemoglobin Concent 33.9, Red Cell Distribution Width 14.4, Platelet Count 454H, Mean Platelet Volume 5.9L, Neutrophils (%) (Auto) 68.9, Lymphocytes (%) (Auto) 16.5L, Monocytes (%) (Auto) 8.8, Eosinophils (%) (Auto) 4.4H, Basophils (%) (Auto) 1.4, Sodium Level 131L, Potassium Level 3.6, Chloride Level 99, Carbon Dioxide Level 23, Blood Urea Nitrogen 16, Creatinine 1.2, Estimat Glomerular Filtration Rate 45.9, Glucose Level 85, Calcium Level 8.5, Phosphorus Level 4.3, Magnesium Level 2.3, Total Bilirubin 0.4, Aspartate Amino Transf (AST/SGOT) 26, Alanine Aminotransferase (ALT/SGPT) 19, Alkaline Phosphatase 235H, Total Protein 6.7, Albumin 2.6L, Globulin 4.1 Height (Feet): 5 Height (Inches): 5.00 Weight (Pounds): 137 General Appearance: no apparent distress EENT: normal ENT inspection Neck: supple Cardiovascular: normal rate Respiratory/Chest: decreased breath sounds Abdomen: soft, hypoactive bowel sounds Extremities: non-tender Assessment/Plan Problem List: (1) Failed Ileocecal Pouch (2) Leg edema, left ICD Codes: R60.0 - Localized edema SNOMED: 952893283 (3) Abdominal pain ICD Codes: R10.9 - Unspecified abdominal pain SNOMED: 66614657 (4) Colostomy and enterostomy complications SNOMED: 293947701 (5) Ulcerative colitis ICD Codes: K51.90 - Ulcerative colitis, unspecified, without complications SNOMED: 72629027 Assessment/Plan: s/p J- pouchoscopy and hemostasis on Rowasa TPN>>> off now eating better but still c/o nausea and vomited last night c/o back pain fu surg recs fu labs will fu Amando Vaz MD Jan 20, 2020 11:58
[2020-01-20 12:00] VITALS: BP 149/86
--- NOTE | 2020-01-20 12:50 | NUR ---
*-*DISCHARGE PLANNED*-* PATIENT HAS BEEN ACCEPTED AND WILL BE SERVICED WITH : [facility] P: [phone] S/W TOMASA, WILL SERVICE PATIENT S/W PATIENT IESHA, MADE AWARE OF DISCHARGE HOME WITH [facility]
--- NOTE | 2020-01-20 13:04 | NUR ---
NURSE NOTES: PICC LINE REMOVED AT 34 CM. PATIENT IN BED LAYING IN SUPINE POSITION. SPO2 97% RA. DENIES SOB/ CHEST PAIN. WILL CONTINUE TO MONITOR FOR S/S.
[2020-01-20] MEDS ORDERED: AMBIEN10 M1 ORAL (14:09)
--- NOTE | 2020-01-20 14:42 | NUR ---
NURSE NOTES: DISCHARGE ORDER RECEIVED AND CARRIED OUT. PRESCRIPTIONS FILLED, SUPPLIES PROVIDED PER MD ORDER. DC INSTRUCTIONS REVIEWED WITH PATIENT AND SISTER MARTA AT BEDSIDE. [facility] TO FOLLOW PATIENT. INFO PROVIDED. PATIENT DECLINED TO USE OTOMY SUPPLIES PROVIDED. STATES SHE HAS A 60 DAY SUPPLY AT HOME ALREADY. ALL BELONGINGS ACCOUNTED FOR. VERBALIZED UNDERSTANDING OF INSTRUCTIONS. WILL F/U WITH DR. GUSTAFSON VIA PHONE IN A FEW DAYS.
--- NOTE | 2020-01-24 09:25 | Discharge Summary ---
Discharge Summary Discharge Summary _ DATE OF ADMISSION: 12/17/2019 DATE OF DISCHARGE: 01/20/2020 DISCHARGED BY: Dr. Gio Mckeon HISTORY OF PRESENT ILLNESS: The patient is a 59-year-old female in overall stable health, who has a past history of ulcerative colitis and has a diverted ileoanal J-pouch with constant and progressive pain, bleeding, and discharge from her J-pouch. The patient underwent total colectomy with ileoanal J-pouch in 1991, but it failed after a few years and a permanent ileostomy was placed, but the J-pouch was left in situ. In 2002 was the time the ileostomy was placed diverting her J-pouch. She had two operations in 2012 for small bowel obstruction. Her last pouch endoscopy was 2017 or 2019. In November 2017, she underwent repair of an incarcerated parastomal hernia with Strattice mesh with findings of severe adhesions. She has also had an open cholecystectomy in 2013. The patient states she has to take sodium and potassium daily, that last year she was hospitalized for three months with severe hyponatremia that was refractory to treatment. CONSULTANTS: Dr. Kevan Hemphill BRIEF HOSPITAL COURSE: Patient was admitted through ED. Stat PICC line was inserted for venous access. She was kept n.p.o. She complained of left lower leg swelling that has been present for several weeks with severe pruritus and rashes she was given a transfer pruritus and Ativan for restless leg syndrome. CT scan of the abdomen and pelvis showed parastomal hernia; significant amount of defunctionalized small bowel loops leading to the ileoanal J-pouch. No sign of neoplasm. Urinalysis showed gram-negative rods. ID was consulted. She was given aztreonam and vancomycin. Patient would require extensive operation, plan for surgery was delayed and patient was optimized for surgery. She was given blood transfusion preoperatively. On December 29, 2019, she underwent laparotomy with resection of defunctionalized distal small bowel and most of the ileoanal J-pouch with revision of Narcisa ileostomy with findings of severe diffuse adhesions. She received 1 unit packed RBC during surgery. She tolerated procedure well and went to the recovery room in stable condition. Urine was clear at the end of the procedure. While in PACU, patient was obtunded. Patient was transferred to ICU and was intubated by ER . Postop day #1. Patient was extubated by anesthesiologist. Patient is awake and alert. Pain was controlled with Dilaudid MESH CUTTER and subcu. She was continued to be n.p.o. She has ongoing TPN. Postop day #2. Patient was afebrile but tachycardic to 120. Pain is controlled. Dilaudid MESH CUTTER. Abdomen soft. Stoma pink. Incision clean. AMIE drain 46 cc serosanguineous. Ileostomy drain 57. Urine 1740. She was continued on n.p.o. with TPN and Caban. She was kept in ICU. Postop day #3. Tachycardia persisted. Abdomen is soft and mildly distended. AMIE drain 115. WBC went up to 35.4. IV fluid increased. Continued on TPN. Postop day #4. Hemoglobin went down to 8.3. She was given 1 unit packed RBC. WBC still high at 31. Patient was transferred to 3 E. Postop day #5. Hemoglobin went up to 9.3. Tachycardia went down to 105. Patient is feeling better. Continue wound drainage. Continue n.p.o., TPN and Caban. Postop day #6. Patient was still tachycardic with a range of 100-106. She comp lained of swelling on both thighs. Abdomen was soft. Continued serous drainage from upper portion of incision. WBC 15.6. Patient was taking amikacin, Flagyl and micafungin. Patient was started on clear liquid diet. Continue on TPN. Postop day #7. Patient was having cough and emesis/spitting up overnight. She continued to have persistent severe thigh edema. WBC 19.5. She was given Compazine and Zofran. She was continued on TPN and antibiotics. Postop day #8. Patient had slight decrease in the swelling and edema. Venous duplex did not show any clots; patient has IVC filters from years ago. CT scan of the abdomen and pelvis did not show any definite abscess, some fluid under the incision. Marked subcutaneous edema of lungs and lower pelvis. Bilateral pleural effusion with compression of lower lobes. She was given IV Lasix. Postop day #9. She is tolerating clear liquids. Abdomen is soft, flat, with continued seropurulent drainage from incision. Buttock and thigh edema still pronounced despite diuresis. She was continued on IV Lasix. Diet was advanced to full liquid diet. Postop day #10. Patient was tolerating small amount of full liquid diet. Abdomen is soft, incisional drainage decreased. Ileostomy stable. There was noted bleeding per a nurse from remaining J-pouch. MESH CUTTER was discontinued. Patient was given Percocet for pain. She was continued on TPN. Patient will eventually need J-pouch endoscopy with sedation and possible catheterization of bleeding points, however need more time to wait for anasarca to resolve. Postop day #11. Patient had restless leg syndrome flare. Flank and thigh edema decreasing with IV Lasix. Was continued on amikacin, Flagyl and micafungin. Postop day #12. Patient not taking any liquid p.o. She had a small emesis of 40 cc. Abdomen was mildly distended, soft, serous drainage coming out from incision. She was continued on Lasix IV, TPN and Caban. Postop day #13. Patient was not taking much a full liquid diet. Abdomen not distended, upper portion of midline incision with 3 mm skin separation with continued ongoing drainage seropurulent drainage. Flank and thigh edema improve d. Residual J-pouch with oozing/bleeding. IV was changed to once daily. Postop day #14. Patient is drinking clear thousand cc of water during the day. She had an emesis after taking Ensure. Edema of the flanks, thigh and buttocks resolved. Drainage from upper incision persists but less. She was continued on TPN. Full liquid diet as tolerated. Postop day #15. Abdominal CT scan did not show any significant fluid collection or abscess. Abdomen was soft, draining less. Patient underwent J-pouch end oscopy with Dr. Vaz. J-pouch extends to 20 cm with areas of superficial mild ulceration/bleeding. It was treated with cautery. She was started on mesalamine enemas nightly. Postop day #16. Patient hungry at times. She had small emesis the night prior. Abdomen was soft with 1 cm opening in incision that probes 1 cm with abdominal wall closure. She was started on BC IR diet. She was given mesalamine rectal enema to J-pouch nightly. She was continued on TPN. Postop day #17. Patient was eating 25% of diet. Abdomen is soft. Open wound tunnels under incision with less drainage. She was continued on TPN. She was given wound care. She has hyponatremia with sodium level of 127. She was started on IV NS. Postop day #18. Patient is eating better. Abdominal dangelo all removed. Open wound was not granulating. There was less drainage. IV fluid discontinued. She was continued on TPN. Caban catheter removed. Postop day #19. Patient is slowly improving off antibiotics. She was eating 25 to 50% of diet. Abdomen is soft. Open wound cavity with minimal drainage, not granulating. She was continued on TPN. She was given wound care. She was tolerating mesalamine enemas nightly. Postop day #20. Patient did not eat much. She had nausea with subcutaneous Dilaudid. Dilaudid was discontinued. She was given Zofran ODT. TPN was tapered. Postop day #21. Patient had an episode of feculent emesis. Abdomen is soft, nondistended, wound with minimal drainage. She was given IV fluids with potassium supplements. She was given 1 unit packed RBC. Hemoglobin was 9.9 but still oozing blood in anus. Postop day #22. There was no further emesis. Patient was tolerating diet fairly well. Abdomen is soft, wound is starting to granulate. Patient was cleared for discharge home. Patient was discharged with supplies, advised to self packed the wound 3 times a day. Discharge with home health. Rx given. FINAL DIAGNOSES: 1. Failed ileoanal J-pouch with persistent pain, bleeding, and discharge with diverting Narcisa ileostomy since 2002. 2. History of ulcerative colitis. 3. Status post multiple abdominal operations. 3.1. Total colectomy with ileoanal J-pouch in 1991. 3.2. Creation of Narcisa ileostomy leaving distal small bowel loops attached to J-pouch in 2002. 3.3. Laparotomy x2 for small bowel obstruction in 2012. 3.4. Open cholecystectomy 2013. 3.5. Repair of parastomal hernia with Strattice mesh and findings of severe adhesions November 2017 (all of these operations were done elsewhere by other surgeons). 4.0 Severe protein calorie malnutrition OPERATION PERFORMED: Laparotomy with resection of defunctionalized distal small bowel and most of the ileoanal J pouch with revision of Narcisa ileostomy with findings of severe diffuse adhesions. ENDOSCOPY PROCEDURE: J-pouchoscopy with hemostasis. DISPOSITION: Patient was discharged home with home health. DISCHARGE MEDICATIONS: Refer to Discharge Medication List. DISCHARGE INSTRUCTIONS: Follow-up on 01/27 and PRN. I have been assigned to complete a discharge summary on this account, I was not involved with the patient's management.--PACHECO Morse Jacqueline Robles NP Jan 24, 2020 09:25
== END 2020-01-20 14:30 | disposition home health service (06) | DRG 329 ==
LOC: EMR 10:30 → EDBEDREQ 10:56 → 3E 11:01 → EDBEDREQ 11:35 → ICU 12-29 18:58 → 3E 01-02 18:45
PROC: 02HV33Z Insertion of Infusion Device into Superior Vena Cava, Percutaneous Approach (ICD-10-PCS; 2019-12-17)
PROC: B518ZZA Fluoroscopy of Superior Vena Cava, Guidance (ICD-10-PCS; 2019-12-17)
PROC: 0BH17EZ Insertion of Endotracheal Airway into Trachea, Via Natural or Artificial Opening (ICD-10-PCS; principal; 2019-12-29 12:00)
PROC: 0JXB0ZZ Transfer Perineum Subcutaneous Tissue and Fascia, Open Approach (ICD-10-PCS; principal; 2019-12-29 12:00)
PROC: 5A1935Z Respiratory Ventilation, Less than 24 Consecutive Hours (ICD-10-PCS; principal; 2019-12-29 12:00)
PROC: 0WQF0ZZ Repair Abdominal Wall, Open Approach (ICD-10-PCS; principal; 2019-12-29 12:00)
PROC: 0DT80ZZ Resection of Small Intestine, Open Approach (ICD-10-PCS; principal; 2019-12-29 12:00)
PROC: 0DJD8ZZ Inspection of Lower Intestinal Tract, Via Natural or Artificial Opening Endoscopic (ICD-10-PCS; 2020-01-13 12:34)
DX: K91.858 Other complications of intestinal pouch (principal); E43 Unspecified severe protein-calorie malnutrition; L03.116 Cellulitis of left lower limb; N39.0 Urinary tract infection, site not specified; K91.2 Postsurgical malabsorption, not elsewhere classified; E87.2 Acidosis; K56.7 Ileus, unspecified; K55.9 Vascular disorder of intestine, unspecified; E86.0 Dehydration; Z87.19 Personal history of other diseases of the digestive system; D50.0 Iron deficiency anemia secondary to blood loss (chronic); B96.20 Unspecified Escherichia coli [E. coli] as the cause of diseases classified elsewhere; F41.9 Anxiety disorder, unspecified; K21.9 Gastro-esophageal reflux disease without esophagitis; K43.5 Parastomal hernia without obstruction or gangrene; G25.81 Restless legs syndrome; K66.0 Peritoneal adhesions (postprocedural) (postinfection); L27.0 Generalized skin eruption due to drugs and medicaments taken internally; R00.0 Tachycardia, unspecified; B37.2 Candidiasis of skin and nail; R06.89 Other abnormalities of breathing; T36.1X5A Adverse effect of cephalosporins and other beta-lactam antibiotics, initial encounter; Y92.239 Unspecified place in hospital as the place of occurrence of the external cause
CPT/HCPCS: 36415; 36569; 71045; 74018; 74177; 76937; 80053; 80150; 80202; 81001; 81003; 82550; 82553; 82607; 82728; 82746; 82803; 82962; 83540; 83550; 83605; 83735; 84100; 84484; 85007; 85025; 85610; 85730; 86850; 86900; 86901; 86920; 87040; 87070; 87075; 87086; 87181; 87205; 87324; 93005; 93970; 93971; 94002; 94003; 94150; 94664; 96374; 96375; 99285; J1815; J2250; J2405; J2710; J3490; J7030; U0002